=== PATIENT | female | born 1930 | race Caucasian/White ===

== ENCOUNTER 2017-03-26 09:40 | Emergency (ER) | payer OTHER, MEDICARE ==
[~2017-03-26] VITALS: Ht 157.5 cm; Wt 77.1 kg
[~2017-03-26 09:40] MED LIST: ALBUTEROL2.5 MG/3 M INH/SOL; AMPICILLIN500 MG PO; ASPIRIN EC81 M1 PO; BREO ELLIPTA1 POW INH; FISH OIL CONC1000 M1 PO; FLOVENT HFA12 G1 INH; FLUTICASONE PRO16 GM NASB; FUROSEMIDE40 M1 PO; LIPITOR20 M2 PO; LOSARTAN POTAS100 M1 PO; MAGNESIUM OXID400 M1 PO; METOPROLOL SUCC25 M1 PO; MUCINEX1200 M1 PO; NEXIUM 40MG40 MG PO; NEXIUM20 M1 PO; POTASSIUM CHLO10 ME4 PO; ROBITUSSIN W/CO10 ML PO; VITAMIN D31000 UNI2 PO; ZITHROMAX Z-PA250 M1 PO
[2017-03-26 10:10] LABS: ABSOLUTE BASOPHIL COUNT 0 /CUMM (0.0-0.2); ABSOLUTE EOSINOPHIL COUNT 0.1 /CUMM (0.0-0.7); ABSOLUTE GRANULOCYTE CT 5.9 /CUMM (1.4-6.5); ABSOLUTE MONOCYTE COUNT 0.6 /CUMM (0.10-0.60); BASOPHIL % 0.3 % (0.0-2.0); EOSINOPHIL % 0.8 % (0-5); GRANULOCYTE % 69.2 % (42.2-75.2); HEMATOCRIT 37.3 % (37-47); MEAN CORPUSCULAR VOLUME 85.6 FL (81.0-99.0); MEAN PLATELET VOLUME 9.2 FL (7.4-10.4); PLATELET COUNT 232 /CUMM (130-400); RBC DISTRIBUTION WIDTH 13.6 % (11.5-14.5); RED BLOOD CELL CT 4.36 /CUMM (4.20-5.40); WHITE BLOOD CELL COUNT 8.5 /CUMM (4.8-10.8)
--- NOTE | 2017-03-26 10:14 | ED CARDIAC/CP/PALPITATIONS ---
History of Present Illness General Chief Complaint: Chest Pain Stated Complaint: cp Source: patient Exam Limitations: no limitations Vital Signs & Intake/Output Vital Signs & Intake/Output ED Intake and Output 03/27 0000 03/26 1200 Intake Total Output Total Balance Patient 170 lb Weight Allergies Coded Allergies: adhesive tape (RASH ON SKIN THAT IT TOUCHES 01/22/16) iodine (DAVIS SKIN WHERE APPLIED 01/22/16) povidone-iodine (DAVIS SKIN WHERE IT IS APPLIED 01/22/16) shellfish derived (HIVES ALL OVER 01/22/16) propoxyphene (GI UPSET 01/22/16) Reconcile Medications Albuterol Sulfate 2.5 MG/3 ML (0.083 %) VIAL.NEB 1 Vial INH/JULIO TID COPD ( Reported) Aspirin (Ecotrin*) 81 MG TABLET.DR 1 TAB PO DAILY HEART (Reported) Atorvastatin Calcium (Lipitor) 20 MG TABLET 1 TAB PO QPM CHOLESTEROL ( Reported) Azithromycin (Zithromax) 250 MG TABLET 1 DP PO AD bronchitis 2 the first day followed by 1 for days 2-5 Cholecalciferol (Vitamin D3) 1,000 UNIT TABLET 1 TAB PO QPM VITAMIN SUPPORT ( Reported) Cholecalciferol (Vitamin D3) (Vitamin D3) 400 UNIT TABLET 1 TAB PO QPM VITAMIN SUPPORT (Reported) Esomeprazole Magnesium (Nexium) 20 MG CAPSULE.DR 1 CAP PO DAILY GERD ( Reported) Fluticasone Propionate 50 MCG/ACTUATION SPRAY.SUSP 2 SPRAY NASB DAILY ALLERGIES (Reported) Fluticasone Propionate (Flovent Hfa) 110 MCG/ACTUATION AER.W.ADAP 2 PUF INH BID COPD (Reported) Furosemide 40 MG TABLET 1 TAB PO DAILY DIURETIC (Reported) Guaifenesin (Mucinex) 1,200 MG TAB.ER.12H 1 TAB PO BID ALLERGIES (Reported) Losartan Potassium 100 MG TABLET 0.5 TAB PO BID BP (Reported) Magnesium Oxide 400 MG TABLET 1 TAB PO DAILY SUPPLEMENT (Reported) Metoprolol Succinate 25 MG TAB 1 TAB PO DAILY BP (Reported) [place]-3 Fatty Acids (Fish Oil Concentrate) 1,000 MG CAPSULE 1 CAP PO DAILY SUPPLEMENT (Reported) Potassium Chloride 10 MEQ TABLET.ER 1 TAB PO DAILY SUPPLEMENT (Reported) Prednisone (Deltasone) 20 MG TABLET 1 TAB PO BID BRONCHITIS Triage Note: PT PRESENTS TO ER FROM [facility]CTORS OFFICE. PT STATES SHE WAS FOLLOWING UP WITH HER DR (DR SANDRA) [facility] WHEN THE DOCTOR NOTICED HER BREATHING WAS HEAVY. PT STATES SHE HAS FELT SOB WITH EXERTION FOR A FEW DAYS. PT DENIES ANY PAIN BUT STILL SHE DOES FEEL LIKE HER CHEST IS HEAVY. EKG DONE ON PT ARRIVAL. Triage Nurses Notes Reviewed? yes Onset: Abrupt Duration: hour(s):, constant, continues in ED Timing: recent history Quality/Severity: moderate, severe Radiation: no radiation HPI: 86-year-old male comes into emergency room with complaints of chest heaviness and shortness of breath. Patient reports that symptoms began when she woke up this morning and have gotten progressively worse. Patient has a history of previous lung cancer with a partial left and partial right lobectomy. She denies any prior history of [place]. Patient went to the lung [facility] today where she gets routine checkups and which is feeling worse than usual. She denies any fever cough vomiting diaphoresis. (WENDY COVINGTON) Past History Travel History Traveled to [place] past 21 day No Medical History Any Pertinent Medical History? 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 No (WENDY COVINGTON) Review of Systems Review of Systems Constitutional: Reports: no symptoms. EENTM: Reports: no symptoms. Respiratory: Reports: see HPI. Cardiovascular: Reports: see HPI. GI: Reports: no symptoms. Genitourinary: Reports: no symptoms. Musculoskeletal: Reports: no symptoms. Skin: Reports: no symptoms. Neurological/Psychological: Reports: no symptoms. Hematologic/Endocrine: Reports: no symptoms. Immunologic/Allergic: Reports: no symptoms. All Other Systems: Reviewed and Negative (WENDY COVINGTON) Physical Exam Physical Exam General Appearance: well developed/nourished, alert, awake, mild distress Head: atraumatic Eyes: Bilateral: normal appearance. Ears, Nose, Throat: normal ENT inspection, hearing grossly normal Neck: normal inspection Respiratory: normal breath sounds, no respiratory distress Cardiovascular: regular rate/rhythm, murmur Back: normal inspection Extremities: normal inspection, normal range of motion Neurologic/Psych: awake, alert, oriented x 3, normal gait, normal mood/affect Skin: intact, normal color Core Measures ACS in differential dx? Yes Severe Sepsis Present: No Septic Shock Present: No (WENDY COVINGTON) Progress Differential Diagnosis: AMI, aortic dissection, atrial fibrillation, CHF/pulm edema, costochondritis, hyperkalemia, intracranial hemorrhage, musculoskeletal pain, myocarditis, pancreatitis, pericarditis, pneumonia, PSVT, pulmonary embolism, PUD/GERD, PVCs/PACs, rib fracture, sepsis, unstable angina, V-fib/V- Tach, WPW syndrome Plan of Care: Orders Procedure Date/time Status Heart Healthy Diet 03/26 D Active TROPONIN LEVEL 03/26 1405 Complete EKG 03/26 1405 Active Add-on Test (ER Only) 03/26 1301 Active Telemetry/Hyster Machine Operator 03/26 1048 Active Add-on Test (ER Only) 03/26 1005 Active MAGNESIUM 03/26 1002 Complete D-DIMER 03/26 1002 Complete TROPONIN LEVEL 03/26 0949 Complete COMPREHENSIVE METABOLIC PANEL 03/26 0949 Complete CBC WITHOUT DIFFERENTIAL 03/26 0949 Complete EKG 03/26 0941 Active Laboratory Tests 03/26/17 1415: Troponin I < 0.01 03/26/17 1002: Anion Gap 9, Estimated GFR > 60, BUN/Creatinine Ratio 27.5 H, Glucose 99, Calcium 9.0, Magnesium 2.0, Total Bilirubin 0.8, AST 18, ALT 28, Alkaline Phosphatase 70, Troponin I < 0.01, Total Protein 7.2, Albumin 4.4, Globulin 2.8, Albumin/Globulin Ratio 1.6, D-Dimer 228, CBC w Diff NO MAN DIFF REQ, RBC 4.36, MCV 85.6, MCH 29.0, RDW 13.6, MPV 9.2, Gran % 69.2, Lymphocytes % 23.1, Monocytes % 6.6, Eosinophils % 0.8, Basophils % 0.3, Absolute Granulocytes 5.9, Absolute Lymphocytes 2.0, Absolute Monocytes 0.6, Absolute Eosinophils 0.1, Absolute Basophils 0, PUBS MCHC 34.0 Diagnostic Imaging: Viewed by Me: Radiology Read. Discussed w/RAD: Radiology Read. Radiology Impression: SERVICE DATE: 03/26/17 EXAM TYPE: RAD - XRY- PORTABLE CHEST XRAY EXAMINATION: XR PORTABLE CHEST CLINICAL INFORMATION: Shortness of breath COMPARISON: Chest x-ray 02/26/2017 TECHNIQUE: Portable frontal view of the chest was obtained. FINDINGS: Cardiac silhouette is normal in size. Similar prominent right paratracheal stripe is likely vascular in nature. The lungs are adequately aerated. Scarring of the left midlung with basilar atelectasis. Surgical changes of the right lung. No gross pleural effusion. IMPRESSION: Postsurgical changes of the lungs. No focal consolidation. DICTATED BY: LIDYA TUTTLE MD DATE/TIME DICTATED:03/26/171039 SALES STRATEGY MANAGER:GLADYS DATE/TIME TRANSCRIBED:03/26/171039 Initial ED EKG: normal p-waves, normal QRS complex, normal sinus rhythm, nonspecific ST T wave chg, supraventricular bigeminy Repeat EKG: unchanged Comments: 03/26/2017 2:31:[address] Stearns from cardiology. Discussed the EKG changes. These EKG changes do not require admission. Patient will stay for a second EKG and troponin. Follow-up as outpatient. Patient has been reevaluated multiple times and clinically looks well. Walking O2 saturation is 97%. Patient did not feel short of breath. (WENDY COVINGTON) Departure Departure Disposition: HOME OR SELF CARE Condition: Stable Clinical Impression Primary Impression: Dyspnea Secondary Impressions: Bronchitis, Tick bite Referrals: KALLI LANGSTON MD (PCP/Family) Additional Instructions: Take prednisone and azithromycin as prescribed. Follow-up with ear wax pumper. Return if any concerns worsening symptoms. Please go over all results of today's visit with your primary care doctor. Contact your primary care doctor to let them know you were here in the emergency room. There may be nonspecific findings which may not be related to your visit today here in the emergency room but may require further evaluation and chronic monitoring by your primary care doctor. If you had a laceration today the chance of foreign body always remains. You should follow-up with your primary care doctor for recheck in 3-5 days for a wound check. If you had an x-ray done there is a chance that a fracture could have been missed on initial read and you should follow-up with your primary care doctor for repeat x-rays if symptoms persist. If your blood pressure was elevated here in the emergency room please have rechecked by her primary care doctor within the next 48 hours by your primary care doctor. If you were prescribed a narcotic here in the emergency room or any type of controlled substances you're not allowed to drive while taking this medication or operate any type of heavy machinery. Narcotics can make you feel lightheaded dizziness nausea and can cause constipation. You may need to berry picker machine operator a stool softener. Thank you for choosing [facility] emergency room. Please return to the emergency room immediately if you have any other concerns worsening of symptoms. Departure Forms: Customer Survey General Discharge Information Prescriptions: Current Visit Scripts Azithromycin (Zithromax) 1 DP PO AD #6 TAB 2 the first day followed by 1 for days 2-5 Prednisone (Deltasone) 1 TAB PO BID #8 MG Comments 03/26/2017 4:09:25 PM Patient clinically looks well. Patient was seen by Dr. torres. Symptoms likely bronchial related. The patient found a tick on her right arm right prior to discharge. The tick was still moving and was not fully burrowed. She was outside yesterday. Patient treated with 1 time dose of doxycycline 200 mg. Told to follow-up for Lyme titer in 4-6 weeks. Negative d-dimer. Walking O2 saturation high 90s. Patient is asymptomatic at the moment. Clinically looks well. dr torres agrees with plan of care. As stated before spoke with the patient's surgical assistant as well. Patient will follow up as an outpatient. (WENDY COVINGTON) PA/DRUM BARKER OPERATOR Co-Sign Statement Statement: ED Attending supervision documentation- x I saw and evaluated the patient. I have also reviewed all the pertinent lab results and diagnostic results. I agree with the findings and the plan of care as documented in the PA's/DRUM BARKER OPERATOR's documentation. [] I have reviewed the ED Record and agree with the PA's/DRUM BARKER OPERATOR's documentation. [] Additions or exceptions (if any) to the PAs/DRUM BARKER OPERATOR's note and plan are summarized below: [] (SANDRA HALL,ANTONIETA) Critical Care Note Critical Care Note Critical Care Time: non-applicable (ALEKSANDR FLORES,WENDY)
[2017-03-26] MEDS ORDERED: VITAMIN D3400 UNI1 PO (10:25)
--- NOTE | 2017-03-26 10:47 | RADIOLOGY REPORT ---
EXAMINATION: XR PORTABLE CHEST CLINICAL INFORMATION: Shortness of breath COMPARISON: Chest x-ray 02/26/2017 TECHNIQUE: Portable frontal view of the chest was obtained. FINDINGS: Cardiac silhouette is normal in size. Similar prominent right paratracheal stripe is likely vascular in nature. The lungs are adequately aerated. Scarring of the left midlung with basilar atelectasis. Surgical changes of the right lung. No gross pleural effusion. IMPRESSION: Postsurgical changes of the lungs. No focal consolidation.
[2017-03-26 14:28] VITALS: BP 155/70
[2017-03-26] MEDS ORDERED: ZITHROMAX250 M2 PO (14:44)
[2017-03-26] MEDS ORDERED: DELTASONE20 MG PO (14:44)
== END 2017-03-26 15:22 ==
LOC: ERH 09:40
PROVIDERS: Physician Assistant Medical
DX: S40.861A Insect bite (nonvenomous) of right upper arm, initial encounter (principal); J40 Bronchitis, not specified as acute or chronic; R07.89 Other chest pain
CPT/HCPCS: 1263; 93005; 93010

== ENCOUNTER 2017-04-14 15:48 | Emergency (ER) | payer OTHER, MEDICARE ==
[~2017-04-14] VITALS: Ht 157.5 cm; Wt 77.1 kg
[~2017-04-14 15:48] MED LIST changes: +DELTASONE20 MG PO; +VITAMIN D3400 UNI1 PO; +ZITHROMAX250 M2 PO
--- NOTE | 2017-04-14 16:46 | RADIOLOGY REPORT ---
EXAMINATION: XR CHEST CLINICAL INFORMATION: Chest congestion and productive cough. COMPARISON: 03/26/2017 TECHNIQUE: 2 views of the chest were obtained. FINDINGS: Surgical clips around the right hilum and in the left infrahilar region from prior right and left lower lobectomy. Linear opacity of chronic scarring extends lateral to the left hilum into the left lower lobe. No acute pulmonary consolidation or pulmonary edema. There is chronic, mild pleural thickening of the inferolateral left hemithorax. Cardiac silhouette is mildly enlarged and the mitral valve annulus is calcified. Thoracic aorta is calcified. No acute findings within the degenerated thoracic spine. IMPRESSION: No acute cardiopulmonary abnormality compared to 03/26/2017.
--- NOTE | 2017-04-14 18:06 | ED DYSPNEA/ASTHMA COMPLAINT ---
History of Present Illness General Chief Complaint: General Adult Stated Complaint: SEN BY DR. ROY FOR CHEST CONGESTION AND COUGH Source: patient Exam Limitations: no limitations Vital Signs & Intake/Output Vital Signs & Intake/Output Vital Signs Date Time Temp Pulse Resp B/P B/P Pulse O2 O2 Flow FiO2 Mean Ox Delivery Rate 04/14 1906 97.7 70 18 138/85 95 Room Air 04/14 1828 98 04/14 1556 97.7 73 20 174/80 98 Allergies Coded Allergies: adhesive tape (RASH ON SKIN THAT IT TOUCHES 01/22/16) iodine (DAVIS SKIN WHERE APPLIED 01/22/16) povidone-iodine (DAVIS SKIN WHERE IT IS APPLIED 01/22/16) shellfish derived (HIVES ALL OVER 01/22/16) propoxyphene (GI UPSET 01/22/16) Reconcile Medications Albuterol Sulfate 2.5 MG/3 ML (0.083 %) VIAL.NEB 1 Vial INH/JULIO TID COPD ( Reported) Albuterol Sulfate (Ventolin Hfa) 90 MCG HFA.AER.AD 2 PUF INH Q4-6 PRN PRN SHORTNESS OF BREATH Aspirin (Ecotrin*) 81 MG TABLET.DR 1 TAB PO DAILY HEART (Reported) Atorvastatin Calcium (Lipitor) 20 MG TABLET 1 TAB PO QPM CHOLESTEROL ( Reported) Budesonide/Formoterol Fumarate (Symbicort 160-4.5 Mcg Inhaler) 160 MCG-4.5 MCG/ ACTUATION HFA.AER.AD 2 PUF INH BID ASTHMA/COPD (Reported) Cholecalciferol (Vitamin D3) 1,000 UNIT TABLET 1 TAB PO QPM VITAMIN SUPPORT ( Reported) Cholecalciferol (Vitamin D3) (Vitamin D3) 400 UNIT TABLET 1 TAB PO QPM VITAMIN SUPPORT (Reported) Esomeprazole Magnesium (Nexium) 20 MG CAPSULE.DR 1 CAP PO DAILY GERD ( Reported) Fluticasone Propionate 50 MCG/ACTUATION SPRAY.SUSP 2 SPRAY NASB DAILY ALLERGIES (Reported) Fluticasone Propionate (Flovent Hfa) 110 MCG/ACTUATION AER.W.ADAP 2 PUF INH BID COPD (Reported) Furosemide 40 MG TABLET 1 TAB PO DAILY DIURETIC (Reported) Guaifenesin (Mucinex) 1,200 MG TAB.ER.12H 1 TAB PO BID ALLERGIES (Reported) Losartan Potassium 100 MG TABLET 0.5 TAB PO BID BP (Reported) Magnesium Oxide 400 MG TABLET 1 TAB PO DAILY SUPPLEMENT (Reported) Metoprolol Succinate 25 MG TAB 1 TAB PO DAILY BP (Reported) [place]-3 Fatty Acids (Fish Oil Concentrate) 1,000 MG CAPSULE 1 CAP PO DAILY SUPPLEMENT (Reported) Potassium Chloride 10 MEQ TABLET.ER 1 TAB PO DAILY SUPPLEMENT (Reported) Prednisone (Unknown Strength) TABLET (Unknown Dose) PO AD STEROID TAPER ( Reported) Prednisone 10 MG TABLET 1 TAB PO AD COPD DAY1/DAY2- FOUR TABS DAY2/DAY3- THREE TABS DAY4/DAY5- TWO TABS DAY6- ONE TAB Triage Note: PRESNTS TO ED FOR EVALUATION SECONDARY TO CHEST CONGESTION X 4 DAYS. SHE WAS TREATED WITH STEROIDS HOWEVER NOT IMPROVING. Triage Nurses Notes Reviewed? yes Onset: Gradual Duration: constant Timing: recent history Severity: moderate Prior Episodes/Possible Cause: frequent episodes HPI: Patient is a 86-year-old female with past medical history of lung cancer where patient received bilateral lobectomy approximately 10 years ago and in 2014 patient had recurrence of cancer where she received radiation therapy. Patient' s chief estimator Deshawn Horner MD who evaluated patient last Friday for concerns of cough wheezing and shortness breath where she was given a steroid prescription patient had mild relief however and the past 25 hours her symptoms of shortness of breath and dyspnea on exertion and wheezing have worsened. Patient denies any fever chills chest pain arm pain jaw pain nausea vomiting leg swelling hemoptysis palpitations diaphoresis abdominal pain. She has tried nebulizer treatments at home with minimal relief of symptoms. (AYAD IRVING) Past History Travel History Traveled to [place] past 21 day No Medical History Any Pertinent Medical History? 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 No (AYAD IRVING) Review of Systems Review of Systems Constitutional: Reports: see HPI. EENTM: Reports: no symptoms. Respiratory: Reports: see HPI, short of breath. Cardiovascular: Reports: no symptoms. GI: Reports: no symptoms. Genitourinary: Reports: no symptoms. Musculoskeletal: Reports: no symptoms. Skin: Reports: no symptoms. Neurological/Psychological: Reports: no symptoms. Hematologic/Endocrine: Reports: no symptoms. Immunologic/Allergic: Reports: no symptoms. All Other Systems: Reviewed and Negative (AYAD IRVING) Physical Exam Physical Exam General Appearance: no apparent distress, alert, comfortable Respiratory: normal breath sounds, chest non-tender, wheezing Comments: Well-developed well-nourished person in no acute distress HEENT: Normal EENT exam, Neck: Supple, no lymphadenopathy, normal range of motion without pain or tenderness Back: Nontender, no CVA tenderness. Cardiovascular: Regular rate and rhythms no murmurs rubs or gallops, normal JVP Abdomen: Soft, nontender nondistended, no appreciable organomegaly. Normal bowel sounds. No ascites Extremity: No edema, no calf tenderness to palpation, normal and equal pulses. Neuro: Alert oriented x3, motor sensory normal, Skin: No appreciable rash on exposed skin, skin is warm and dry. Psych: Mood and affect is normal, memory and judgment is normal. Core Measures ACS in differential dx? No Severe Sepsis Present: No Septic Shock Present: No (AYAD IRVING) Progress Differential Diagnosis: asthma, AMI, bronchitis, costochondritis, CHF, COPD, musculoskeletal pain, pericarditis, pulmonary embolism, pneumonia, pneumothorax, rib fracture, unstable angina Plan of Care: Orders Procedure Date/time Status EKG 04/14 1558 Active Patient on initial examination looks well no apparent distress nontoxic- appearing afebrile and denies any symptoms of infectious process. Patient does have bilateral wheezing on exam. Oxygen saturation 96% room air. Patient is in no respiratory distress. My suspicion of pulmonary embolism is extremely low. Patient does not have any chest pain. 04/14/174- after reexamination of the patient after nebulizer treatment and steroids patient had complete resolution of wheezing. Patient was ABMULATED DOWN THE ELY noted to be no respiratory distress oxygen saturation 96% room air. Discussed disposition plan with Dr. GREGG and who agreed with disposition plan. (AYAD IRVING) Diagnostic Imaging: Viewed by Me: Radiology Read. Radiology Impression: no acute abnormality, no fracture Initial ED EK BPM Comments: PATIENT: THOMAS HDZ PRESENT AGE: 86 PATIENT ACCOUNT NO: [id number] : 30 LOCATION: [facility] ORDERING PHYSICIAN: PAWAN GILBERT DO (TBS) SERVICE DATE: 04/14/17 EXAM TYPE: RAD - XRY-CHEST XRAY, PA AND LATERAL EXAMINATION: XR CHEST CLINICAL INFORMATION: Chest congestion and productive cough. COMPARISON: 03/26/2017 TECHNIQUE: 2 views of the chest were obtained. FINDINGS: Surgical clips around the right hilum and in the left infrahilar region from prior right and left lower lobectomy. Linear opacity of chronic scarring extends lateral to the left hilum into the left lower lobe. No acute pulmonary consolidation or pulmonary edema. There is chronic, mild pleural thickening of the inferolateral left hemithorax. Cardiac silhouette is mildly enlarged and the mitral valve annulus is calcified. Thoracic aorta is calcified. No acute findings within the degenerated thoracic spine. IMPRESSION: No acute cardiopulmonary abnormality compared to 03/26/2017. DICTATED BY: AMELIA LIVE MD DATE/TIME DICTATED:04/14/171635 INDUSTRIAL PLANT CUSTODIAN:GLADYS (AYAD IRVING) Departure Departure Disposition: HOME OR SELF CARE Condition: Stable Clinical Impression Primary Impression: COPD (chronic obstructive pulmonary disease) Referrals: KALLI LANGSTON MD (PCP/Family) Additional Instructions: As discussed tomorrow please follow-up with your established chief estimator Dr. Horner. If symptoms worsen return to emergency room. Continue home medications as directed. Begin the prescription of prednisone as directed for the full course and begin the prescription of Ventolin for rescue inhaler relief. Prescriptions waiting a [facility] pharmacy. Begin [id number] allergy medications of his Claritin and/or Thelma for relief of symptoms Departure Forms: Customer Survey General Discharge Information Prescriptions: Current Visit Scripts Prednisone 1 TAB PO AD #19 TAB DAY1/DAY2- FOUR TABS DAY2/DAY3- THREE TABS DAY4/DAY5- TWO TABS DAY6- ONE TAB Albuterol Sulfate (Ventolin Hfa) 2 PUF INH Q4-6 PRN PRN SHORTNESS OF BREATH #1 INHAL (AYAD IRVING) PA/INFECTION PREVENTIONIST Co-Sign Statement Statement: ED Attending supervision documentation- [] I saw and evaluated the patient. I have also reviewed all the pertinent lab results and diagnostic results. I agree with the findings and the plan of care as documented in the PA's/INFECTION PREVENTIONIST's documentation. [X] I have reviewed the ED Record and agree with the PA's/INFECTION PREVENTIONIST's documentation. [] Additions or exceptions (if any) to the PAs/INFECTION PREVENTIONIST's note and plan are summarized below: [] (CRISTINO HALL,FELICE) Critical Care Note Critical Care Note Critical Care Time: non-applicable (AYAD IRVING)
[2017-04-14] MEDS ORDERED: SYMBICORT 16010.2 GM INH (19:01)
[2017-04-14] MEDS ORDERED: PREDNISONE10 M2 PO ×2 (19:01→19:21)
[2017-04-14 19:06] VITALS: BP 138/85
[2017-04-14] MEDS ORDERED: VENTOLIN HFA18 GM INH (19:21)
== END 2017-04-14 19:28 ==
LOC: ERH 15:48
DX: J44.9 Chronic obstructive pulmonary disease, unspecified (principal); R06.02 Shortness of breath
CPT/HCPCS: 1263; 93005; 93010; 96374; J2930

== ENCOUNTER 2017-12-18 15:40 | Inpatient (IN) | payer OTHER, MEDICARE ==
[~2017-12-18] VITALS: Ht 157.5 cm; Wt 74.8 kg
[~2017-12-18 15:40] MED LIST changes: +ALBUTEROL0.63 MG/1 INH; +CARDIZEM30 M1 PO; +COLACE100 M1 PO; +DILTIAZEM 24HR120 M1 PO; -FISH OIL CONC1000 M1 PO; +HYDROCODON-ACE1 EAC2 PO; +LEVAQUIN750 M1 PO; +LOVAZA1 G1 PO; -POTASSIUM CHLO10 ME4 PO; +POTASSIUM CHLO20 ME2 PO; +PREDNISONE10 M2 PO; +SYMBICORT 16010.2 GM INH; +VENTOLIN HFA18 GM INH; +XARELTO15 M1 PO; +XARELTO20 M2 PO
--- NOTE | 2017-12-18 18:21 | ED UPPER/LOWER EXTREMITY COMPL ---
See Addendum History of Present Illness General Chief Complaint: General Adult Stated Complaint: PT WAS SENT BY DR SANTANA FOR BIG HEMATOMA Source: patient, family, old records Exam Limitations: no limitations Vital Signs & Intake/Output Vital Signs & Intake/Output Vital Signs Date Time Temp Pulse Resp B/P B/P Pulse O2 O2 Flow FiO2 Mean Ox Delivery Rate 12/189 98.4 71 18 122/57 98 Room Air 12/18 2035 97.2 67 18 135/64 100 Room Air 12/18 2026 93 Room Air 12/18 1556 97.2 118 24 123/62 93 Room Air Room Air Allergies Coded Allergies: adhesive tape (RASH ON SKIN THAT IT TOUCHES 10/22/17) iodine (DAVIS SKIN WHERE APPLIED 10/22/17) povidone-iodine (DAVIS SKIN WHERE IT IS APPLIED 10/22/17) shellfish derived (HIVES ALL OVER 10/22/17) propoxyphene (GI UPSET 10/22/17) Triage Note: PT RETURNS TO ED WITH C/O LEFT LOWER LEG BRUISING AND PAIN, SEEN ON FRIDAY, HAD XRAY. FOLLOWED UP WITH DR LOPEZ, "WANTED ME TO FOLLOW UP WITH DR SANTANA AND/OR DR MARIE". HX XERALTO, FOR A-FIB Triage Nurses Notes Reviewed? yes Onset: Gradual Duration: day(s): Timing: recent history Severity: severe Pain/Injury Location: Left: Leg. Method of Injury: direct blow HPI: 87yo female with hx of a fib on xarelto presents to ED complaining of hematoma to left lower leg with worsening pain and redness. Patient was seen and evaluated here 4 days ago with normal xrays. She was placed in [place] wrap and given Vicodin for her pain. Since then the patient has seen her primary care doctor, Dr. Lopez, she was started on Augmentin 2 days ago for surrounding cellulitis. Patient has also spoken with Dr. Santana over the phone. He is recommended that she return to the ER for possible general surgery consult and drainage of hematoma. Patient reports pain is still severe, not well controlled with Vicodin. Patient states that she is having increasing difficulty with ambulation due to her pain. Patient denies fevers, chills, abdominal pain, nausea, vomiting, numbness, tingling. (Ifrah FLORES,Raissa Campbell) Reconcile Medications Albuterol Sulfate 2.5 MG/3 ML (0.083 %) VIAL.NEB 1 Vial INH/JULIO TID COPD ( Reported) Albuterol Sulfate (Ventolin Hfa) 90 MCG HFA.AER.AD 2 PUF INH Q4-6 PRN PRN SHORTNESS OF BREATH Aspirin (Ecotrin*) 81 MG TABLET.DR 1 TAB PO DAILY HEART (Reported) Atorvastatin Calcium (Lipitor) 20 MG TABLET 1 TAB PO QPM CHOLESTEROL ( Reported) Budesonide/Formoterol Fumarate (Symbicort 160-4.5 Mcg Inhaler) 160 MCG-4.5 MCG/ ACTUATION HFA.AER.AD 2 PUF INH BID COPD (Reported) Cholecalciferol (Vitamin D3) 1,000 UNIT TABLET 1 TAB PO QPM VITAMIN SUPPORT ( Reported) Cholecalciferol (Vitamin D3) (Vitamin D3) 1,000 UNIT CAPSULE 1 CAP PO DAILY HEALTH SUPPLEMENT (Reported) Diltiazem HCl (Diltiazem 24HR Cd) 120 MG CAP.ER.24H 1 CAP PO DAILY HEART/BP ( Reported) Esomeprazole Magnesium (Nexium) 20 MG CAPSULE.DR 1 CAP PO DAILY ACID REFLUX ( Reported) Esomeprazole Magnesium (Nexium) 20 MG CAPSULE.DR 1 CAP PO DAILY ACID REFLUX ( Reported) Fluticasone Propionate 50 MCG/ACTUATION SPRAY.SUSP 2 SPRAY NASB DAILY ALLERGIES (Reported) Furosemide 40 MG TABLET 1 TAB PO BID DIURETIC (Reported) Guaifenesin (Mucinex) 1,200 MG TAB.ER.12H 1 TAB PO BID ALLERGIES (Reported) Hydrocodone/Acetaminophen (Hydrocodon-Acetaminophen 5-325) 5 MG-325 MG TABLET 1 TAB PO BID PRN pain Losartan Potassium 100 MG TABLET 0.5 TAB PO BID BP (Reported) Magnesium Oxide 400 MG TABLET 1 TAB PO DAILY SUPPLEMENT (Reported) Metoprolol Succinate 25 MG TAB 1 TAB PO DAILY BP (Reported) [place]-3 Acid Ethyl Esters (Lovaza) 1 GRAM CAPSULE 1 CAP PO BID CHOLESTEROL/ TRIGLYCERIDES (Reported) Potassium Chloride 20 MEQ TAB.ER.PRT 1 TAB PO DAILY SUPPLEMENT (Reported) Rivaroxaban (Xarelto) 20 MG TABLET 1 TAB PO QPM A FIB (Reported) with food (Osei Angela MD) Past History Travel History Traveled to [place] past 21 day No Medical History Any Pertinent Medical History? 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 No (Raissa Bruno) Review of Systems Review of Systems Constitutional: Reports: no symptoms. EENTM: Reports: no symptoms. Respiratory: Reports: no symptoms. Cardiovascular: Reports: no symptoms. Gastrointestinal/Abdominal: Reports: no symptoms. Genitourinary: Reports: no symptoms. Musculoskeletal: Reports: see HPI. Skin: Reports: see HPI. Neurological/Psychological: Reports: no symptoms. Hematologic/Endocrine: Reports: no symptoms. Immunological: Reports: no symptoms. All Other Systems: Reviewed and Negative (Raissa Bruno) Physical Exam Physical Exam General Appearance: well developed/nourished, no apparent distress, alert, awake Head: atraumatic, normal appearance Eyes: Bilateral: normal appearance. Ears, Nose, Throat: hearing grossly normal Neck: normal inspection, supple, full range of motion Cardiovascular/Respiratory: no respiratory distress Peripheral Pulses: 1+ dorsalis pedis (R), 1+ dorsalis pedis (L) Back: normal inspection, normal range of motion Leg Left: 6X6CM HEMATOMA TO LEFT DISTAL ANTERIOR ANDERS WITH TENDERNESS AND SURROUNDING ERYTHEMA, WARMTH, AND MILD TENDERNESS Leg Right: normal range of motion, normal inspection Hip Left: normal range of motion, normal inspection Hip Right: normal range of motion, normal inspection Knee Left: normal range of motion, normal inspection Knee Right: normal range of motion, normal inspection Foot Left: normal inspection, normal range of motion, NONTENDER, ECCYMOSIS TO MEDIAL MALLEOLUS WITHOUT BONY TENDERNESS Foot Right: normal inspection, normal range of motion Neurologic/Tendon: normal sensation, normal motor functions, normal tendon functions Skin: SEE ABOVE (Ifrah FLORES,Raissa Campbell) Progress Differential Diagnosis: arterial insufficiency, cellulitis, contusion, fracture, sprain, tendon injury, HEMATOMA Plan of Care: Orders Procedure Date/time Status Regular Diet 12/19 B Active Patient Data 12/18 2307 Active OXYGEN SETUP (GEN) 12/18 2241 Active Saline Lock 12/18 2241 Active Admit to inpatient 12/18 2241 Active Vital Signs 12/18 2241 Active Activity/Ambulation 12/18 2241 Active Code Status 12/18 2241 Active LACTIC ACID 12/18 2151 Active Add-on Test (ER Only) 12/18 2121 Active PARTIAL THROMBOPLASTIN TIME 12/18 1950 Complete PROTHROMBIN TIME 12/18 1950 Complete LACTIC ACID 12/18 185 Complete COMPREHENSIVE METABOLIC PANEL 12/18 185 Complete CBC WITHOUT DIFFERENTIAL 12/18 185 Complete Current Medications Sig/Heena Start time Last Medication Dose Stop Time Status Admin Ampicillin Sodium/ 3,000 MG ONCE ONE 12/18 2315 AC Sulbactam Sodium 12/18 2344 (Unasyn) Sodium Chloride 100 ML (Normal Saline 0.9%) Laboratory Tests 12/18/17 1950: PT 28.7 H, INR 2.76 H, APTT 39 H, CBC w Diff NO MAN DIFF REQ, RBC 3.51 L, MCV 75.4 L, MCH 24.6 L, MCHC 32.7 L, RDW 15.8 H, MPV 8.7, Gran % 70.6, Lymphocytes % 15.1 L, Monocytes % 13.3 H, Eosinophils % 0.5, Basophils % 0.5, Absolute Granulocytes 5.0, Absolute Lymphocytes 1.1 L, Absolute Monocytes 1.0 H, Absolute Eosinophils 0, Absolute Basophils 0 12/18/17 185: Anion Gap 12, Estimated GFR > 60, BUN/Creatinine Ratio 17.5, Glucose 97, Lactic Acid 1.3, Calcium 9.1, Total Bilirubin 0.5, AST 19, ALT 29, Alkaline Phosphatase 62, Total Protein 6.3, Albumin 4.0, Globulin 2.3, Albumin/Globulin Ratio 1.7 Patient's hematoma and lower leg erythema appear to be worsening compared to when I saw this patient 4 days ago. Will obtain basic labs and ultrasound to assess for infection, abscess. The patient was signed out to Dr. Angela pending blood work and ultrasound. Hand-Off Endorsed To: Osei Angela MD Endorsed Time: 2002 Pending: labs, ultrasound (Raissa Bruno) Diagnostic Imaging: Viewed by Me: Ultrasound. Discussed w/RAD: Ultrasound. Radiology Impression: Hematoma, complex seroma or complex cyst at the area of clinical concern. Comments: D/W Dr. Jewell (Osei Angela MD) Departure Departure Disposition: STILL A PATIENT Condition: Stable Referrals: Antonio Lopez MD (PCP/Family) Departure Forms: Customer Survey General Discharge Information (Raissa Bruno) Departure Clinical Impression Primary Impression: Hematoma Secondary Impressions: Anemia Cellulitis Qualifiers: Site of cellulitis: extremity Site of cellulitis of extremity: lower extremity Laterality: left Qualified Code: L03.116 - Cellulitis of left lower limb Coagulopathy Admission Note Spoke With: Antonio Lopez MD Documentation of Exam: Documentation of any treatments & extenuating circumstances including Concerns Regarding Discharge (functional status, medication knowledge or non-compliance, living conditions, etc.) that warrant an admission rather than observation: Surgical evaluation and IV antibiotics IV analgesia physical therapy serial lab exam medication adjustment continuing care discharge planning (Osei Angela MD)
[2017-12-18 20:15] LABS: ABSOLUTE BASOPHIL COUNT 0 /CUMM (0.0-0.2); ABSOLUTE EOSINOPHIL COUNT 0 /CUMM (0.0-0.7); ABSOLUTE LYMPH COUNT 1.1 /CUMM (1.2-3.4); BASOPHIL % 0.5 % (0.0-2.0); EOSINOPHIL % 0.5 % (0-5); GRANULOCYTE % 70.6 % (42.2-75.2); HEMATOCRIT 26.4 % (37-47); MEAN CORPUSCULAR HGB 24.6 PG (27.0-31.0); MEAN CORPUSCULAR HGB CONC 32.7 G/DL (33.0-37.0); MEAN CORPUSCULAR VOLUME 75.4 FL (81.0-99.0); MEAN PLATELET VOLUME 8.7 FL (7.4-10.4); PLATELET COUNT 241 /CUMM (130-400); RBC DISTRIBUTION WIDTH 15.8 % (11.5-14.5); RED BLOOD CELL CT 3.51 /CUMM (4.20-5.40); WHITE BLOOD CELL COUNT 7.1 /CUMM (4.8-10.8)
--- NOTE | 2017-12-18 21:18 | ULTRASOUND REPORT ---
EXAMINATION: US SUPERFICIAL IMAGING, EXTREMITY CLINICAL INFORMATION: Pain following injury. Cellulitis. COMPARISON: 12/14/2017. TECHNIQUE: Imaging was performed with a high-frequency linear transducer. FINDINGS: At the area of clinical concern, there is an approximate 4.3 x 3.8 x 5.7 cm subcutaneous heterogeneous soft tissue focus. This could correspond to a hematoma or complicated cyst. No vascularity is demonstrable. IMPRESSION: Hematoma, complex seroma or complex cyst at the area of clinical concern.
[2017-12-18 22:24] LABS: PT 28.7 SEC (9.4-12.5); PTT 39 SEC (25-37)
[2017-12-18] MEDS ORDERED: VITAMIN D31000 UNI1 PO (22:31)
[2017-12-18] MEDS ORDERED: NEXIUM20 M1 PO (22:33)
--- NOTE | 2017-12-18 23:09 | Cons- General Surgery ---
General Information and HPI Consulting Request Date of Consult: 12/19/17 Requested By: Sulema Lopez M.D. History of Present Illness: 87-year-old woman presents to the medical service with increasing size of a hematoma left lower extremity. There is concern about superimposed infection. She is on Xarelto and hit her leg at home. There was acute swelling which has been stable over the past few days. She complains of increasing size of a blister over the wound and pain. No fevers chills or sweats Allergies/Medications Allergies: Coded Allergies: adhesive tape (RASH ON SKIN THAT IT TOUCHES 10/22/17) iodine (DAVIS SKIN WHERE APPLIED 10/22/17) povidone-iodine (DAVIS SKIN WHERE IT IS APPLIED 10/22/17) shellfish derived (HIVES ALL OVER 10/22/17) propoxyphene (GI UPSET 10/22/17) Home Med List: Albuterol Sulfate 2.5 MG/3 ML (0.083 %) VIAL.NEB 1 Vial INH/JULIO TID COPD ( Reported) Albuterol Sulfate (Ventolin Hfa) 90 MCG HFA.AER.AD 2 PUF INH Q4-6 PRN PRN SHORTNESS OF BREATH Aspirin (Ecotrin*) 81 MG TABLET.DR 1 TAB PO DAILY HEART (Reported) Atorvastatin Calcium (Lipitor) 20 MG TABLET 1 TAB PO QPM CHOLESTEROL ( Reported) Budesonide/Formoterol Fumarate (Symbicort 160-4.5 Mcg Inhaler) 160 MCG-4.5 MCG/ ACTUATION HFA.AER.AD 2 PUF INH BID COPD (Reported) Cholecalciferol (Vitamin D3) (Vitamin D3) 1,000 UNIT CAPSULE 1 CAP PO DAILY HEALTH SUPPLEMENT (Reported) Diltiazem HCl (Diltiazem 24HR Cd) 120 MG CAP.ER.24H 1 CAP PO DAILY HEART/BP ( Reported) Esomeprazole Magnesium (Nexium) 20 MG CAPSULE.DR 1 CAP PO DAILY ACID REFLUX ( Reported) Fluticasone Propionate 50 MCG/ACTUATION SPRAY.SUSP 2 SPRAY NASB DAILY ALLERGIES (Reported) Furosemide 40 MG TABLET 1 TAB PO BID DIURETIC (Reported) Guaifenesin (Mucinex) 1,200 MG TAB.ER.12H 1 TAB PO BID ALLERGIES (Reported) Hydrocodone/Acetaminophen (Hydrocodon-Acetaminophen 5-325) 5 MG-325 MG TABLET 1 TAB PO BID PRN pain Losartan Potassium 100 MG TABLET 0.5 TAB PO BID BP (Reported) Magnesium Oxide 400 MG TABLET 1 TAB PO DAILY SUPPLEMENT (Reported) Metoprolol Succinate 25 MG TAB 1 TAB PO DAILY BP (Reported) [place]-3 Acid Ethyl Esters (Lovaza) 1 GRAM CAPSULE 1 CAP PO BID CHOLESTEROL/ TRIGLYCERIDES (Reported) Potassium Chloride 20 MEQ TAB.ER.PRT 1 TAB PO DAILY SUPPLEMENT (Reported) Rivaroxaban (Xarelto) 20 MG TABLET 1 TAB PO QPM A FIB (Reported) with food Past History Medical History Neurological: NONE EENT: NONE Cardiovascular: AFIB, CHF, hypertension, hyperlipidemia Respiratory: COPD, pneumonia, radiation pneumonitis non-small cell lung cancer s /p lobectomy 2007 2007, s/p radiation 2013, c/b radiation pneumonitis Gastrointestinal: carcinoid syndrome, s/p resection Hepatic: NONE Renal: NONE Musculoskeletal: osteoarthritis Psychiatric: NONE Endocrine: NONE Blood Disorders: NONE 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 spouse Services at Home: None Primary Language: Romanian ETOH Use: denies use Illicit Drug Use: denies illicit drug use Living Will? yes Functional Ability ADLs Independent: dressing, eating, toileting, bathing. Ambulation: independent Review of Systems Review of Systems: No fevers chills or sweats. No chest pain no dyspnea on exertion leg pain per HPI Exam & Diagnostic Data Vital Signs and I&O Vital Signs Date Time Temp Pulse Resp B/P B/P Pulse O2 O2 Flow FiO2 Mean Ox Delivery Rate 12/18 2248 98.4 71 18 122/57 98 Room Air 12/18 2035 97.2 67 18 135/64 100 Room Air 12/18 2026 93 Room Air 12/18 1556 97.2 118 24 123/62 93 Room Air Room Air Intake & Output 12/18 1600 12/18 0800 12/18 0000 12/17 1600 12/17 0812/17 0000 Intake Total Output Total Balance Patient 165 lb Weight Weight Reported by Patient Measurement Method Physical Exam: Gen.: She looks well her stated age obese no distress HEENT: Anicteric PERRL EOMI Leg: Left lower extremity with large bulla anterior. There is surrounding ecchymosis. There is tenderness without heat. Last 24 Hours of Labs: Laboratory Tests 12/18 12/18 1950 1852 Chemistry Sodium (137 - 145 mmol/L) 138 Potassium (3.5 - 5.1 mmol/L) 4.0 Chloride (98 - 107 mmol/L) 100 Carbon Dioxide (22 - 30 mmol/L) 26 Anion Gap (5 - 16) 12 BUN (7 - 17 mg/dL) 14 Creatinine (0.5 - 1.0 mg/dL) 0.8 Estimated GFR (>60 ml/min) > 60 BUN/Creatinine Ratio (7 - 25 %) 17.5 Glucose (65 - 99 mg/dL) 97 Lactic Acid (0.7 - 2.1 mmol/L) 1.3 Calcium (8.4 - 10.2 mg/dL) 9.1 Total Bilirubin (0.2 - 1.3 mg/dL) 0.5 AST (14 - 36 U/L) 19 ALT (9 - 52 U/L) 29 Alkaline Phosphatase (<127 U/L) 62 Total Protein (6.3 - 8.2 g/dL) 6.3 Albumin (3.5 - 5.0 g/dL) 4.0 Globulin (1.9 - 4.2 gm/dL) 2.3 Albumin/Globulin Ratio (1.1 - 2.2 %) 1.7 Coagulation PT (9.4 - 12.5 SEC) 28.7 H INR (0.90 - 1.19) 2.76 H APTT (25 - 37 SEC) 39 H Hematology CBC w Diff NO MAN DIFF REQ WBC (4.8 - 10.8 /CUMM) 7.1 RBC (4.20 - 5.40 /CUMM) 3.51 L Hgb (12.0 - 16.0 G/DL) 8.6 L Hct (37 - 47 %) 26.4 L MCV (81.0 - 99.0 FL) 75.4 L MCH (27.0 - 31.0 PG) 24.6 L MCHC (33.0 - 37.0 G/DL) 32.7 L RDW (11.5 - 14.5 %) 15.8 H Plt Count (130 - 400 /CUMM) 241 MPV (7.4 - 10.4 FL) 8.7 Gran % (42.2 - 75.2 %) 70.6 Lymphocytes % (20.5 - 51.1 %) 15.1 L Monocytes % (1.7 - 9.3 %) 13.3 H Eosinophils % (0 - 5 %) 0.5 Basophils % (0.0 - 2.0 %) 0.5 Absolute Granulocytes (1.4 - 6.5 /CUMM) 5.0 Absolute Lymphocytes (1.2 - 3.4 /CUMM) 1.1 L Absolute Monocytes (0.10 - 0.60 /CUMM) 1.0 H Absolute Eosinophils (0.0 - 0.7 /CUMM) 0 Absolute Basophils (0.0 - 0.2 /CUMM) 0 Assessment/Plan Assessment/Plan Impression is that of a 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 Excisional debridement of the superficial skin was carried forth. The bulla was completely evacuated. Beneath that there was a large necrotic portion of dermis with tense hematoma underneath. A cruciate incision was made over it and attempt at evacuation of the hematoma attempted. I could not complete the operation due to severe pain experienced by the patient. The clot is densely adherent and may require operative removal. However given the wide exposure obtained, would recommend dressing changes over the weekend to see if it evacuated's spontaneously. Operative intervention will be taken Friday if local cares fail. In the interim she can eat. If anticoagulation is required, would recommend using Lovenox rather than Xarelto as it can be stopped 12 hours prior to surgery. Consult Acknowledgment - Thank you for your consult request.
--- NOTE | 2017-12-19 00:02 | History & Physical ---
See Addendum Oracio HALL,Abigail 12/19/17 0001: General Information and HPI MD Statement: I have seen and personally examined THOMAS HDZ and documented this H&P. The patient is a 87 year old F who presented with a patient stated chief complaint of [L leg redness and swelling and bump]. Source of Information: patient Exam Limitations: no limitations History of Present Illness: The patient is 86-year-old female with past medical history of chronic asthma/ COPD, 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), enlarging lingular nodule or status post radiation therapy in 2013 complicated by radiation pneumonitis, multinodular thyroid gland, hiatal hernia, GERD, HTN/mild LVH,/diastolic dysfunction, multiple valvular abnormalities and atrial fibrillation on Xarelto. She presented to [facility] ED on 12/18 with complaint of increasing left leg bump along with redness and pain. The patient came to [facility] ED on December 14 with complain of pain in left lower leg after hitting it with garbage can. The patient had noticeable swelling around that area and had what appeared to be a small hematoma. X-ray did not show any acute bony pathology but showed a 3.5 x 5.4 cm soft tissue density along the medial aspect of distal leg (can correlate with the soft tissue hematoma). Her leg was wrapped with Manan wrap for compression. She was instructed to apply ice and elevated the leg and was discharged with pain medications. She saw her PCP on May 16 bump had increases in size and there was surrounding redness along with tenderness; she was prescribed Augmentin. Today patient called Dr. Stearns her email engineer and PCP with progressive increase in the size of the bump and worsening pain, redness and swelling of left lower extremity. She was advised to come to ED for further evaluation. She reports that her bump is becoming bigger, bassett, darker and tense. She denies any fever or chills. Patient is independent at baseline reports using walker because of limitation of range of motion secondary to pain. Of note patient is on Xarelto for atrial fibrillation Denies chest pain shortness of breath nausea vomiting or urinary symptoms. Patient is requesting ID consult. Dr. Jewell surgery has also been notified in the ED. Allergies/Medications Allergies: Coded Allergies: adhesive tape (RASH ON SKIN THAT IT TOUCHES 10/22/17) iodine (DAVIS SKIN WHERE APPLIED 10/22/17) povidone-iodine (DAVIS SKIN WHERE IT IS APPLIED 10/22/17) shellfish derived (HIVES ALL OVER 10/22/17) propoxyphene (GI UPSET 10/22/17) Home Med list Albuterol Sulfate 2.5 MG/3 ML (0.083 %) VIAL.NEB 1 Vial INH/JULIO TID COPD ( Reported) Albuterol Sulfate (Ventolin Hfa) 90 MCG HFA.AER.AD 2 PUF INH Q4-6 PRN PRN SHORTNESS OF BREATH Aspirin (Ecotrin*) 81 MG TABLET.DR 1 TAB PO DAILY HEART (Reported) Atorvastatin Calcium (Lipitor) 20 MG TABLET 1 TAB PO QPM CHOLESTEROL ( Reported) Budesonide/Formoterol Fumarate (Symbicort 160-4.5 Mcg Inhaler) 160 MCG-4.5 MCG/ ACTUATION HFA.AER.AD 2 PUF INH BID COPD (Reported) Cholecalciferol (Vitamin D3) (Vitamin D3) 1,000 UNIT CAPSULE 1 CAP PO DAILY HEALTH SUPPLEMENT (Reported) Diltiazem HCl (Diltiazem 24HR Cd) 120 MG CAP.ER.24H 1 CAP PO DAILY HEART/BP ( Reported) Esomeprazole Magnesium (Nexium) 20 MG CAPSULE.DR 1 CAP PO DAILY ACID REFLUX ( Reported) Fluticasone Propionate 50 MCG/ACTUATION SPRAY.SUSP 2 SPRAY NASB DAILY ALLERGIES (Reported) Furosemide 40 MG TABLET 1 TAB PO BID DIURETIC (Reported) Guaifenesin (Mucinex) 1,200 MG TAB.ER.12H 1 TAB PO BID ALLERGIES (Reported) Hydrocodone/Acetaminophen (Hydrocodon-Acetaminophen 5-325) 5 MG-325 MG TABLET 1 TAB PO BID PRN pain Losartan Potassium 100 MG TABLET 0.5 TAB PO BID BP (Reported) Magnesium Oxide 400 MG TABLET 1 TAB PO DAILY SUPPLEMENT (Reported) Metoprolol Succinate 25 MG TAB 1 TAB PO DAILY BP (Reported) Thorpe-3 Acid Ethyl Esters (Lovaza) 1 GRAM CAPSULE 1 CAP PO BID CHOLESTEROL/ TRIGLYCERIDES (Reported) Potassium Chloride 20 MEQ TAB.ER.PRT 1 TAB PO DAILY SUPPLEMENT (Reported) Rivaroxaban (Xarelto) 20 MG TABLET 1 TAB PO QPM A FIB (Reported) with food Compliance With Home Meds: GOOD Past History Travel History Traveled to [place] past 21 day No Medical History Neurological: NONE EENT: NONE Cardiovascular: AFIB, CHF, hypertension, hyperlipidemia Respiratory: COPD, pneumonia, radiation pneumonitis non-small cell lung cancer s /p lobectomy 2006 2007, s/p radiation 2013, c/b radiation pneumonitis Gastrointestinal: carcinoid syndrome, s/p resection Hepatic: NONE Renal: NONE Musculoskeletal: osteoarthritis Psychiatric: NONE Endocrine: NONE Blood Disorders: NONE Cancer(s): lung cancer RANGE MOUNTER/Reproductive: NONE History of MRSA: No History of VRE: No History of CDIFF: No Tetanus Vaccine: 08/06/17 Surgical History Surgical History: appendectomy, cholecystectomy, hip replacement, hysterectomy, status post pulmonary lobectomies lobectomies Past Family/Social History Family History Relations & Conditions if any BROTHER FH: heart attack DAUGHTER FH: breast cancer Relation not specified for: FH: throat cancer Psychosocial History Where do you live? Home Who Do You Live With? spouse Services at Home: None Primary Language: Uzbek Smoking Status: Never Smoked ETOH Use: denies use Illicit Drug Use: denies illicit drug use Living Will? yes Functional Ability ADLs Independent: dressing, eating, toileting, bathing. Ambulation: independent IADLs Independent: shopping, housework, finances, food prep, telephone, transportation , medication admin. Review of Systems Review of Systems Constitutional: Reports: see HPI. Denies: chills, malaise, weakness, unexplained weight loss. EENTM: Reports: no symptoms. Cardiovascular: Reports: no symptoms. Denies: chest pain, orthopena. Respiratory: Reports: no symptoms. GI: Reports: no symptoms. Genitourinary: Reports: no symptoms. Musculoskeletal: Reports: no symptoms. Exam & Diagnostic Data Last 24 Hrs of Vital Signs/I&O Vital Signs Date Time Temp Pulse Resp B/P B/P Pulse O2 O2 Flow FiO2 Mean Ox Delivery Rate 12/19 0054 Room Air 12/189 98.4 71 18 122/57 98 Room Air 12/18 2035 97.2 67 18 135/64 100 Room Air 12/18 2026 93 Room Air 12/18 1556 97.2 118 24 123/62 93 Room Air Room Air Intake & Output 12/19 0800 12/19 0000 12/18 1600 Intake Total 100 Output Total Balance 100 Intake, IV 100 Patient 165 lb 165 lb Weight Weight Reported by Patient Reported by Patient Measurement Method Physical Exam General Appearance Alert, Oriented X3, Cooperative, No Acute Distress Neck Supple, No LAD Lymphatic Cervical nl Cardiovascular Normal S1, Normal S2, No Murmurs, Gallops Lungs Clear to Auscultation, Normal Air Movement Abdomen Normal Bowel Sounds, Soft, No Tenderness, No Hepatospenomegaly Extremities Normal Pulses Body Front and Back (Adult) 1) erythema, warmth, tenderness, edema 2) tense bullae, cystic swelling filled with dark fluid Last 24 Hrs of Labs/Jem: Laboratory Tests 12/18/17 1950: PT 28.7 H, INR 2.76 H, APTT 39 H, CBC w Diff NO MAN DIFF REQ, RBC 3.51 L, MCV 75.4 L, MCH 24.6 L, MCHC 32.7 L, RDW 15.8 H, MPV 8.7, Gran % 70.6, Lymphocytes % 15.1 L, Monocytes % 13.3 H, Eosinophils % 0.5, Basophils % 0.5, Absolute Granulocytes 5.0, Absolute Lymphocytes 1.1 L, Absolute Monocytes 1.0 H, Absolute Eosinophils 0, Absolute Basophils 0 12/18/17 1852: Anion Gap 12, Estimated GFR > 60, BUN/Creatinine Ratio 17.5, Glucose 97, Lactic Acid 1.3, Calcium 9.1, Total Bilirubin 0.5, AST 19, ALT 29, Alkaline Phosphatase 62, Total Protein 6.3, Albumin 4.0, Globulin 2.3, Albumin/Globulin Ratio 1.7 12/18/17 1730: Lactic Acid Cancelled Diagnostic Data Other Results US SUPERFICIAL IMAGING, EXTREMITY FINDINGS: At the area of clinical concern, there is an approximate 4.3 x 3.8 x 5.7 cm subcutaneous heterogeneous soft tissue focus. This could correspond to a hematoma or complicated cyst. No vascularity is demonstrable. IMPRESSION: Hematoma, complex seroma or complex cyst at the area of clinical concern. Assessment/Plan Assessment: The patient is 86-year-old female with past medical history of chronic asthma/ COPD, 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), enlarging lingular nodule or status post radiation therapy in 2013 complicated by radiation pneumonitis, multinodular thyroid gland, hiatal hernia, GERD, HTN/mild LVH,/diastolic dysfunction, mild CAD, and atrial fibrillation on Xarelto. She presented to [facility] ED on 12/18 with complaint of increasing left leg bump along with swelling and pain -VS HR 118 rest WNL -Pertinent labs H/ MCV 75 MCH 24 BEP WNL -Imaging finding dictated above -In ED patient received Tylenol morphine and Unasyn, blood cultures were not drawn Patient is being admitted to general medicine floor and is being treated and evaluated for following conditions #Cellulitis along with complicated cyst Patient is presenting with a complex cyst vs hematoma. She is afebrile and without white count. She has surrounding erythema around the cystic swelling that is extending above her leg consistent with cellulitis -Monitor fever and WBC curve -Continue IV Unasyn -ID consult as per patient's request. -Elevate leg -Pain pathway -Draw blood cultures -Surgical consult in the morning for possible drainage -Of note patient is on Xarelto for atrial fibrillation we are going to hold the morning dose for anticipated procedure and restart it after that. #Microcytic anemia Patient is presenting with and low MCV and MCH -Anemia work up iron studies ferritin TIBC, B12 B 10 -Consider iron supplementation #Chronic medical conditions hyperlipidemia hypertension, cardiac history, GERD, status post lobectomy Continue atorvastatin, Lasix, losartan, metoprolol, diltiazem, asprin, omperazole, Symbicort and Mucinex #FC patient has been notified by her oil recovery operator Dr. Horner that she is not a candidate for intubation however she would like chest compressions and the possibility of intubation should be referred to the oil recovery operator if need arises #DVT prophylaxis with a Xarelto/ heart healthy diet As Ranked By This Provider Problem List: 1. Cellulitis Qualifiers Site of cellulitis: extremity Site of cellulitis of extremity: lower extremity Laterality: left Qualified Code: L03.116 - Cellulitis of left lower limb Core Measures/Misc (08/10) Acute Coronary Syndrome ACS Diagnosis: No Congestive Heart Failure Congestive Heart Failure Diagnosis No Cerebrovascular Accident CVA/TIA Diagnosis: No VTE (View Protocol) VTE Risk Factors Age>40 No Mechanical VTE Prophylaxis d/t N/A MechProphylax Ordered No VTE Pharm Prophylaxis d/t NA PharmProphylax ordered Sepsis (View protocol) Sepsis Present: No Jeniffer Lockett 12/19/17 0219: Resident Review Statement Resident Statement: discussed with agronomy internship Other Findings: 87-year-old woman with past medical history of chronic asthma/COPD with recurrent bronchospasm, non-small cell lung cancer and carcinoid tumor status post right and left lower lobectomies in 2006 and 2007, enlarging lingular nodule status post radiation therapy in 2013 complicated by radiation pneumonitis, hypertension, dyslipidemia, multinodular thyroid gland, hiatal hernia, GERD, Mod pulmonary hypertension, diastolic dysfunction, CAD s/p Cardiac cath in 1999, A. fib on Xarelto, h/o anemia and BRBPR. She presented to ER on December 14 with complaint of left lower leg pain and swelling status post hitting of her leg with garbage can. Left leg x-ray was done that showed no acute fracture or dislocation of left tibia or fibula. A 3.5 x 5.4 cm soft tissue density along the medial aspect of distal leg was noted. ? hematoma. Hematoma was was wrapped with Manan wrap for compression. She was instructed to apply ice and elevate her leg and got discharged on Vicodin for pain. According to patient her pain and swelling was worsening and redness was increasing around the area. She also saw Dr. Lopez 2 days ago who started her on Augmentin. Today she presents because her leg was getting worse. She also spoke to Dr. Stearns over the phone who recommended her to go to ER for further evaluation. She is also complaining of difficulty walking due to severe pain of her left leg. She denies any fever, chills. Other review of systems negative. Vitals on admission: Temperature 97.2, pulse 118, respiratory rate 24, blood pressure 123/62 and oxygen saturation 93% on room air. Pertinent physical exam findings: Left leg swollen and erythematous with large bullae on the anteromedial side of the leg. Leg is warm and tender on palpation. Pedal pulses palpable. Pertinent labs: H&H 8.6/26.4, MCV 75, INR 2.76 Left leg ultrasound showed 4.3 x 3.8 x 5.7 cm subcutaneous complex cyst without any vascularity. In ER she was given IV Tylenol, morphine and Unasyn. Assessment and plan 87-year-old woman with past medical history of chronic asthma/COPD with recurrent bronchospasm, non-small cell lung cancer and carcinoid tumor status post right and left lower lobectomies in 2006 and 2008, enlarging lingular nodule status post radiation therapy in 2014 complicated by radiation pneumonitis, hypertension, dyslipidemia, multinodular thyroid gland, hiatal hernia, GERD, Mod pulmonary hypertension, diastolic dysfunction, CAD s/p Cardiac cath in 1999, A. fib on Xarelto, h/o anemia and BRBPR is going to be admitted on general medicine floor for left lower extremity cellulitis and a subcutaneous complex cyst/bullae. Monitor vitals closely. Continue IV Unasyn. Blood cultures 2. leg elevation. Surgical consult in a.m. Will continue all her home medications except Xarelto. Will restart after surgical evaluation or possible intervention. Cardio consult (Dr. Stearns) in am. Pain management pathway. DVT prophylaxis. Full code
[2017-12-19 02:00] VITALS: BP 120/58
[2017-12-19 06:46] VITALS: BP 122/60
--- NOTE | 2017-12-19 07:18 | PN- Housestaff ---
See Addendum Subjective Follow-up For: Left leg hematome, cellulitis Microcytic anemia A. fib on Eliquis Subjective: Admission was seen and examined this morning, complains of swelling and pain in her right lower extremity Review of Systems Constitutional: Denies: no symptoms. Cardiovascular: Denies: no symptoms. Respiratory: Denies: no symptoms. Gastrointestinal: Denies: no symptoms. Skin: Reports: lesions (red tense 5X5 bulla on RLE). Neurological/Psychological: Denies: no symptoms. Objective Last 24 Hrs of Vital Signs/I&O Vital Signs Date Time Temp Pulse Resp B/P B/P Pulse O2 O2 Flow FiO2 Mean Ox Delivery Rate 12/19 1055 86.0 108 20 122/54 12/19 1012 86.0 108 20 122/54 12/19 0646 86.0 86 20 122/60 95 Room Air 12/19 0200 97.8 85 20 120/58 94 Room Air 12/19 0054 Room Air 12/18 2249 98.4 71 18 122/57 98 Room Air 12/18 2035 97.2 67 18 135/64 100 Room Air 12/18 2026 93 Room Air 12/18 1556 97.2 118 24 123/62 93 Room Air Room Air Intake & Output 12/19 1600 12/19 0800 12/19 0000 Intake Total 600 100 Output Total 600 Balance -600 600 100 Intake, IV 100 Intake, Oral 600 Output, Urine 600 Patient 165 lb Weight Weight Reported by Patient Measurement Method Physical Exam General Appearance: Alert, Oriented X3, Cooperative, No Acute Distress HEENT: Atraumatic, PERRLA, EOMI, Mucous Membr. moist/pink Cardiovascular: Normal S1, Normal S2, No Murmurs, irregular Lungs: Clear to Auscultation, Normal Air Movement Abdomen: Normal Bowel Sounds, Soft, No Tenderness Extremities: No Clubbing, No Cyanosis, tense bulla 5X5 cm , reddish , surrounding skin show features of cellulitis Vascular: Normal Pulses, Pulses Symmetrical Current Medications: Current Medications Sig/Heena Start time Last Medication Dose Route Stop Time Status Admin Acetaminophen 650 MG Q8P PRN 12/19 0015 AC PO Acetaminophen 0 .STK-MED ONE 12/18 2023 DC IV Acetaminophen 1,000 MG ONCE ONE 12/18 1999 DC 12/18 N/A 1 UNIT IV 12/18 Albuterol Sulfate 3 ML BID 12/19 1000 AC INH Ampicillin Sodium/ 3,000 MG Q6 12/19 0600 AC 12/19 Sulbactam Sodium IV 1056 Sodium Chloride 100 ML Ampicillin Sodium/ 3,000 MG ONCE ONE 12/18 2315 DC 12/18 Sulbactam Sodium IV 12/18 2344 2346 Sodium Chloride 100 ML Aspirin Buffered 81 MG DAILY 12/19 1000 AC 12/19 PO 0924 Atorvastatin Calcium 20 MG QPM 12/19 2200 AC PO Budesonide/ 2 PUF BID 12/19 1000 AC 12/19 Formoterol Fumarate INH 0925 Cholecalciferol 1,000 IU DAILY 12/19 1000 AC 12/19 PO 0924 Diltiazem HCl 120 MG DAILY 12/19 1000 AC 12/19 PO 1012 Fish Oil 1,050 MG BID 12/19 1000 AC 12/19 PO 0923 Fluticasone 2 SPRAY DAILY 12/19 1000 AC 12/19 Propionate MARCO 0924 Furosemide 40 MG BID 12/19 1000 AC 12/19 PO 0924 Guaifenesin 1,200 MG BID 12/19 1000 AC 12/19 PO 0923 Losartan Potassium 50 MG BID 12/19 1000 AC PO Magnesium Oxide 400 MG DAILY 12/19 1000 AC 12/19 PO 0923 Metoprolol Succinate 25 MG DAILY 12/19 1000 AC 12/19 PO 1012 Morphine Sulfate 2 MG Q6P PRN 12/19 0015 AC 12/19 IV 0924 Morphine Sulfate 0 .STK-MED ONE 12/18 2213 DC .ROUTE Morphine Sulfate 4 MG ONCE ONE 12/18 2129 DC 12/18 IV 12/18 2130 222 Omeprazole 20 MG DAILY AC 12/19 0700 AC 12/19 PO 0537 Potassium Chloride 20 MEQ DAILY 12/19 1000 AC 12/19 PO 0924 Tramadol HCl 50 MG Q6P PRN 12/19 0015 AC PO Last 24 Hrs of Lab/Jem Results Last 24 Hrs of Labs/Mics: Laboratory Tests 12/19/17 0748: PT 22.7 H, INR 2.18 H, CBC w Diff NO MAN DIFF REQ, RBC 3.32 L, MCV 74.7 L, MCH 24.9 L, MCHC 33.3, RDW 16.0 H, MPV 9.0, Gran % 72.3, Lymphocytes % 15.5 L , Monocytes % 11.6 H, Eosinophils % 0.4, Basophils % 0.2, Absolute Granulocytes 5.5, Absolute Lymphocytes 1.2, Absolute Monocytes 0.9 H, Absolute Eosinophils 0 , Absolute Basophils 0 12/18/17 1950: PT 28.7 H, INR 2.76 H, APTT 39 H, CBC w Diff NO MAN DIFF REQ, RBC 3.51 L, MCV 75.4 L, MCH 24.6 L, MCHC 32.7 L, RDW 15.8 H, MPV 8.7, Gran % 70.6, Lymphocytes % 15.1 L, Monocytes % 13.3 H, Eosinophils % 0.5, Basophils % 0.5, Absolute Granulocytes 5.0, Absolute Lymphocytes 1.1 L, Absolute Monocytes 1.0 H, Absolute Eosinophils 0, Absolute Basophils 0 12/18/17 1852: Anion Gap 12, Estimated GFR > 60, BUN/Creatinine Ratio 17.5, Glucose 97, Lactic Acid 1.3, Calcium 9.1, Iron 22 L, TIBC 392, Ferritin 29.6, Total Bilirubin 0.5, AST 19, ALT 29, Alkaline Phosphatase 62, Total Protein 6.3, Albumin 4.0, Globulin 2.3, Albumin/Globulin Ratio 1.7, Vitamin B12 957 H, Folate 10.1 12/18/17 1730: Lactic Acid Cancelled Microbiology 12/19 0940 BLOOD: Blood Culture - RECD 12/19 924 BLOOD: Blood Culture - RECD Assessment/Plan Assessment: 87-year-old female with past medical history of chronic asthma/COPD, 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) , enlarging lingular nodule or status post radiation therapy in 2013 complicated by radiation pneumonitis, multinodular thyroid gland, hiatal hernia, GERD, HTN/ mild LVH,/diastolic dysfunction, mild CAD, and atrial fibrillation on Xarelto. She presented to [facility] ED on 12/18 with complaint of increasing left leg bump along with swelling and pain. Given her history of being on Xarelto increases possibility for hematoma collection #RLE large posttraumatic bulla of the left pretibial region s/p I&D -I&D was made at bedside today AND considerable amount of pus and hematoma was evacuated. -Patient will go to the OR on Friday if local care FAILS -Monitor fever and WBC curve -Continue IV Unasyn -ID consult as per patient's request. -Elevate leg -Pain pathway -F/U ON blood cultures - local wound care as per wound care recomm -Follow up on CBC in the evening to rule out extensive bleeding -Goal Hemoglobin is above 8 Given her cardiac history #History of A. fib on XERALTO We'll hold XERALTO for now in anticipation of surgery on Friday We'll start IV heparin drip, to be stopped before surgery according to his recommendation Patient is full code DVT prophylaxis with IV heparin Regular diet Problem List: 1. Coagulopathy 2. Cellulitis 3. Hematoma Pain Ratin Pain Location: RLE Pain Goal: Pain 4 or less Pain Plan: pathway Tomorrow's Labs & Rationales: cbc bep DVT/Prophylaxis: mechanical, pharmacological
[2017-12-19 09:29] LABS: ABSOLUTE BASOPHIL COUNT 0 /CUMM (0.0-0.2); ABSOLUTE EOSINOPHIL COUNT 0 /CUMM (0.0-0.7); ABSOLUTE GRANULOCYTE CT 5.5 /CUMM (1.4-6.5); ABSOLUTE LYMPH COUNT 1.2 /CUMM (1.2-3.4); ABSOLUTE MONOCYTE COUNT 0.9 /CUMM (0.10-0.60); BASOPHIL % 0.2 % (0.0-2.0); EOSINOPHIL % 0.4 % (0-5); GRANULOCYTE % 72.3 % (42.2-75.2); HEMATOCRIT 24.8 % (37-47); MEAN CORPUSCULAR HGB 24.9 PG (27.0-31.0); MEAN CORPUSCULAR HGB CONC 33.3 G/DL (33.0-37.0); MEAN CORPUSCULAR VOLUME 74.7 FL (81.0-99.0); PLATELET COUNT 219 /CUMM (130-400); RED BLOOD CELL CT 3.32 /CUMM (4.20-5.40); WHITE BLOOD CELL COUNT 7.6 /CUMM (4.8-10.8)
[2017-12-19 09:38] LABS: PT 22.7 SEC (9.4-12.5)
--- NOTE | 2017-12-19 13:28 | Admission Certification ---
Admission Certification Certification Statement - As attending physician, I certify that at the time of - admission, based on clinical presentation, severity of - symptoms, need for further diagnostic testing and - therapeutic interventions, and risk of adverse outcomes - without in-hospital treatment, in my clinical assessment, - this patient requires an acute hospital stay for a minimum - of two nights or longer. I have also considered psychsocial - factors such as support system, advanced age, financial - issues, cognitive issues, and failed out-patient treatments, - past re-admission history, safety of patient, and lack of - compliance as applicable. Specific rationale supporting this admission is: Painful hematoma cellulitis on her leg posttraumatic in a patient on anticoagulation
--- NOTE | 2017-12-19 13:31 | PN- Att Addend ---
Attending Addendum Attending Brief Note 87-year-old white female who had trauma to her left leg on December 14. After that developed a big hematoma (patient on anticoagulation). Hematoma has little redness around it her pain medications are not helping so much throbbing. Patient has been on antibiotics. Patient had to return to the emergency room because the pain is so bad that it was seen by surgery, electively after holding Ramirez anticoagulation will have drainage of the hematoma and hopefully that will relieve the pain Patient had an ultrasound which showed no DVT. Her white count is normal Laboratory Tests 12/19/17 0748: PT 22.7 H, INR 2.18 H, CBC w Diff NO MAN DIFF REQ, RBC 3.32 L, MCV 74.7 L, MCH 24.9 L, MCHC 33.3, RDW 16.0 H, MPV 9.0, Gran % 72.3, Lymphocytes % 15.5 L , Monocytes % 11.6 H, Eosinophils % 0.4, Basophils % 0.2, Absolute Granulocytes 5.5, Absolute Lymphocytes 1.2, Absolute Monocytes 0.9 H, Absolute Eosinophils 0 , Absolute Basophils 0 12/18/17 1950: PT 28.7 H, INR 2.76 H, APTT 39 H, CBC w Diff NO MAN DIFF REQ, RBC 3.51 L, MCV 75.4 L, MCH 24.6 L, MCHC 32.7 L, RDW 15.8 H, MPV 8.7, Gran % 70.6, Lymphocytes % 15.1 L, Monocytes % 13.3 H, Eosinophils % 0.5, Basophils % 0.5, Absolute Granulocytes 5.0, Absolute Lymphocytes 1.1 L, Absolute Monocytes 1.0 H, Absolute Eosinophils 0, Absolute Basophils 0 12/18/17 1852: Anion Gap 12, Estimated GFR > 60, BUN/Creatinine Ratio 17.5, Glucose 97, Lactic Acid 1.3, Calcium 9.1, Iron 22 L, TIBC 392, Ferritin 29.6, Total Bilirubin 0.5, AST 19, ALT 29, Alkaline Phosphatase 62, Total Protein 6.3, Albumin 4.0, Globulin 2.3, Albumin/Globulin Ratio 1.7, Vitamin B12 957 H, Folate 10.1 12/18/17 1730: Lactic Acid Cancelled
[2017-12-19 14:28] VITALS: BP 122/60
[2017-12-19 20:10] LABS: ABSOLUTE BASOPHIL COUNT 0 /CUMM (0.0-0.2); ABSOLUTE EOSINOPHIL COUNT 0 /CUMM (0.0-0.7); ABSOLUTE GRANULOCYTE CT 6.5 /CUMM (1.4-6.5); ABSOLUTE LYMPH COUNT 1.3 /CUMM (1.2-3.4); BASOPHIL % 0.4 % (0.0-2.0); EOSINOPHIL % 0.1 % (0-5); GRANULOCYTE % 73.7 % (42.2-75.2); HEMATOCRIT 23.7 % (37-47); MEAN CORPUSCULAR HGB 24.7 PG (27.0-31.0); MEAN CORPUSCULAR HGB CONC 33.1 G/DL (33.0-37.0); MEAN CORPUSCULAR VOLUME 74.7 FL (81.0-99.0); MEAN PLATELET VOLUME 8.9 FL (7.4-10.4); PLATELET COUNT 259 /CUMM (130-400); RBC DISTRIBUTION WIDTH 16.3 % (11.5-14.5); RED BLOOD CELL CT 3.18 /CUMM (4.20-5.40); WHITE BLOOD CELL COUNT 8.8 /CUMM (4.8-10.8)
[2017-12-19 21:05] LABS: PTT 32 SEC (25-37)
[2017-12-19 21:54] VITALS: BP 124/60
--- NOTE | 2017-12-19 22:42 | Event Note ---
Event Note Event Note: S: Patient continues to have bleeding from open I&D site B: Patient currently on heparin for A. fib just in case for surgery on Friday A/R: Patient hemoglobin 8.6 and dropped to 7.[address] Arzate. Will dc heparin for now. Will transfuse 1 unit prbc. Also contacted surgical PA who thought the soaked dressings was typical for the patient's I+D and she was not concerned about excessive bleeding.
[2017-12-19 23:36] LABS: ABSOLUTE EOSINOPHIL COUNT 0 /CUMM (0.0-0.7); ABSOLUTE MONOCYTE COUNT 0.9 /CUMM (0.10-0.60); EOSINOPHIL % 0 % (0-5); HEMATOCRIT 22.2 % (37-47); RBC DISTRIBUTION WIDTH 16.3 % (11.5-14.5); WHITE BLOOD CELL COUNT 9.5 /CUMM (4.8-10.8)
[2017-12-19 23:39] LABS: ABSOLUTE BASOPHIL COUNT 0 /CUMM (0.0-0.2); ABSOLUTE GRANULOCYTE CT 7.2 /CUMM (1.4-6.5); ABSOLUTE LYMPH COUNT 1.3 /CUMM (1.2-3.4); BASOPHIL % 0.3 % (0.0-2.0); GRANULOCYTE % 76.3 % (42.2-75.2); MEAN CORPUSCULAR HGB 24.3 PG (27.0-31.0); MEAN CORPUSCULAR HGB CONC 32.9 G/DL (33.0-37.0); MEAN PLATELET VOLUME 8.7 FL (7.4-10.4); PLATELET COUNT 244 /CUMM (130-400)
[2017-12-20 06:00] VITALS: BP 124/54
--- NOTE | 2017-12-20 08:35 | Discharge Summary ---
Visit Information Visit Dates Admission Date: 12/18/17 Discharge Date: 12/26/17 Hospital Course Course Attending Physician: Antonio Lopez MD Primary Care Physician: Antonio Lopez MD Hospital Course: 87-year-old female with past medical history of chronic asthma/COPD, 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) , enlarging lingular nodule or status post radiation therapy in 2013 complicated by radiation pneumonitis, multinodular thyroid gland, hiatal hernia, GERD, HTN/ mild LVH,/diastolic dysfunction, mild CAD, and atrial fibrillation on Xarelto presented to [facility] for left leg swelling and pain after a minor trauma. The patient was originally admitted and started on Unasyn for concerni for cellulitis. Bedside incision and drainage was performed on 12/19/17, with drainage of hematoma. The patient then went to the operating room three days later for further debridement and wound vac placement. Wound care was consulted , the leg was elevated and wrapped. Antibiotics were discontinued. The patient lost a significant amount of blood and required two units pRBC transfusion during which time Xarelto was held. After repeat debridement Xarelto was restarted at 15mg daily instead of 20mg daily, given her mildly reduced creatinine clearance, after discussion with the pharmacist. Her hospital course was complicated by acute hypoxemic respiratory failure with tachypnea, wheezing, and hypoxia to 86% SpO2 on room air at rest. Pulmonology was consulted. The patient was treated for COPD exacerbation and bronchitis with azithromycin and steroids but was also given intravenous furosemide for possible pulmonary vascular congestion given the blood transfusions and her history of diastolic heart failure. The patient improved and was discharged home with health services and plans to follow up with her primary care physician and the wound care center. Allergies: Coded Allergies: adhesive tape (RASH ON SKIN THAT IT TOUCHES 10/22/17) iodine (DAVIS SKIN WHERE APPLIED 10/22/17) povidone-iodine (DAVIS SKIN WHERE IT IS APPLIED 10/22/17) shellfish derived (HIVES ALL OVER 10/22/17) propoxyphene (GI UPSET 10/22/17) Disposition Summary Disposition Principal Diagnosis: Acute hypoxemic respiratory failure Acute blood loss anemia secondary to left lower extremity traumatic hematoma on anticoagulation Additional Diagnosis: Atrial fibrillation COPD Discharge Disposition: home health services Discharge Instructions General Discharge Information Code Status: Full Code Patient's Diet: Heart healthy Patient's Activity: As tolerated Follow-Up Instructions/Appts: 1- Please follow up with PCP in 1 week of discharge 2- Please follow up with wound care center for wound management Medications at Discharge Discharge Medications: Stop taking the following medications: Rivaroxaban (Xarelto) 20 MG TABLET ORAL Every night Continue taking these medications: Fluticasone Propionate (Fluticasone Propionate) 50 MCG/ACTUATION SPRAY.SUSP 2 Heaters Both sides of nose DAILY Comments: Last Taken:12/26/17 Time:10 AM Metoprolol Succinate (Metoprolol Succinate) 25 MG TAB 1 Tablet ORAL DAILY Comments: Last Taken: 12/26/17 Time: 10 AM Losartan Potassium (Losartan Potassium) 100 MG TABLET 0.5 Tablet ORAL TWICE DAILY Comments: Last Taken: 12/26/17 Time: 10 AM Atorvastatin Calcium (Lipitor) 20 MG TABLET 1 Tablet ORAL Every night Comments: Last Taken: 12/25/17 Time: 9:20 PM Furosemide (Furosemide) 40 MG TABLET 1 Tablet ORAL TWICE DAILY Comments: Last Taken: 12/26/17 Time: 10 AM Albuterol Sulfate (Albuterol Sulfate) 2.5 MG/3 ML (0.083 %) VIAL.NEB 1 Vial Inhale Solution THREE TIMES DAILY Comments: Last Taken: 08/06/17 Time: 830 AM Magnesium Oxide (Magnesium Oxide) 400 MG TABLET 1 Tablet ORAL DAILY Comments: Last Taken:12/26/17 Time:10AM Guaifenesin (Mucinex) 1,200 MG TAB.ER.12H 1 Tablet ORAL TWICE DAILY Comments: Last Taken: 12/26/17 Time: 10 AM [place]-3 Acid Ethyl Esters (Lovaza) 1 GRAM CAPSULE 1 Capsule ORAL TWICE DAILY Comments: Last Taken:09/05/17 Time:10AM Aspirin (Ecotrin*) 81 MG TABLET.DR 1 Tablet ORAL DAILY Comments: Last Taken: 12/26/17 Time: 10 AM Potassium Chloride (Potassium Chloride) 20 MEQ TAB.ER.PRT 1 Tablet ORAL DAILY Comments: Last Taken:12/25/17 Time:10AM Albuterol Sulfate (Ventolin Hfa) 90 MCG HFA.AER.AD 2 Puff Inhale through mouth EVERY 4-6 HOURS NEEDED as needed for SHORTNESS OF BREATH Qty = 1 Comments: NOT GIVEN IN HOSPITAL Budesonide/Formoterol Fumarate (Symbicort 160-4.5 Mcg Inhaler) 160 MCG-4.5 MCG/ ACTUATION HFA.AER.AD 2 Puff Inhale through mouth TWICE DAILY Qty = 306 Comments: Last Taken:12/26/17 Time:10AM Diltiazem HCl (Diltiazem 24HR Cd) 120 MG CAP.ER.24H 1 Capsule ORAL DAILY Comments: Last Taken:12/26/17 Time:10 AM Hydrocodone/Acetaminophen (Hydrocodon-Acetaminophen 5-325) 5 MG-325 MG TABLET 1 Tablet ORAL TWICE DAILY as needed for pain Qty = 10 Cholecalciferol (Vitamin D3) (Vitamin D3) 1,000 UNIT CAPSULE 1 Capsule ORAL DAILY Esomeprazole Magnesium (Nexium) 20 MG CAPSULE.DR 1 Capsule ORAL DAILY Start taking the following new medications: Rivaroxaban (Xarelto) 15 MG TABLET 1 Tablet ORAL DAILY Qty = 30 No Refills Instructions: . Azithromycin (Azithromycin) 500 MG TABLET 1 Tablet ORAL DAILY Qty = 3 No Refills Instructions: . Prednisone (Prednisone) 10 MG TABLET 1 Tablet ORAL As Directed Qty = 30 No Refills Instructions: TAKE 4 TABS 40MG 2/3, 2/4, 2/5 TAKE 3 TABS 30MG 26, 2, 2 TAKE 2 TABS 20MG 01/02, 01/03, 2 TAKE 1 TAB 10MG 01/05, 01/06, 01/07. Copies To: Jinny HALL,Darian Dalton; Antonio Lopez MD Attending Review Statement Documenting Attending: Antonio Lopez MD
--- NOTE | 2017-12-20 08:35 | Patient Discharge Instructions ---
Discharge Instructions General Discharge Information You were seen/treated for: RLE hematoma, cellulitis You had these procedures: I&D Special Instructions: 1-Please follow up with your PCP in 1 week of discharge 2-Please follow up with wound care center for wound management Acute Coronary Syndrome Inclusion Criteria At DC or during hospital stay patient has or had the following: ACS DIAGNOSIS No Discharge Core Measures Meds if any: Prescribed or Continued at Discharge Meds if any: NOT Prescribed or Continued at Discharge Congestive Heart Failure Inclusion Criteria At DC or during hospital stay patient has or had the following: CHF DIAGNOSIS No Discharge Core Measures Meds if any: Prescribed or Continued at Discharge Meds if any: NOT Prescribed or Continued at Discharge Cerebrovascular accident Inclusion Criteria At DC or during hospital stay patient has or had the following: CVA/TIA Diagnosis No Discharge Core Measures Meds if any: Prescribed or Continued at Discharge Meds if any: NOT Prescribed or Continued at Discharge Venous thromboembolism Inclusion Criteria VTE Diagnosis No VTE Type NONE VTE Confirmed by (Test) NONE Discharge Core Measures - Per Current guidelines, there needs to be overlap - treatment for the first 5 days of Warfarin therapy. - If discharged on Warfarin prior to 5 days of - overlap therapy, the patient will need to be - assessed for post discharge needs including - *Post discharge parental anticoagulation - *Warfarin and/or parental anticoagulation education - *Follow up date to check INR post discharge At least 5 days overlap therapy as Inpatient No Meds if any: Prescribed or Continued at Discharge Note: Overlap Therapy is Warfarin and Anticoagulant Meds if any: NOT Prescribed or Continued at Discharge
--- NOTE | 2017-12-20 09:02 | PN- Housestaff ---
[place] [facility] 0854: Subjective Follow-up For: Left leg hematome, cellulitis Anemia Subjective: No overnight events. She remained afebrile overnight. Seen and examined this morning. Patient denied any chest pain, short of breath, nausea, vomiting, chills, fever, abdominal pain and dysuria. Patient is using 1 L of oxygen maintaining saturation 95%. Patient having dressing on the left leg that's not socked. Review of Systems Constitutional: Reports: no symptoms. EENTM: Reports: no symptoms. Cardiovascular: Reports: no symptoms. Respiratory: Reports: no symptoms. Gastrointestinal: Reports: no symptoms. Genitourinary: Reports: no symptoms. Neurological/Psychological: Reports: no symptoms. Objective Last 24 Hrs of Vital Signs/I&O Vital Signs Date Time Temp Pulse Resp B/P B/P Pulse O2 O2 Flow FiO2 Mean Ox Delivery Rate 12/20 0814 98.0 80 18 140/76 12/20 0813 98.0 8 18 140/76 12/20 0600 98.2 78 20 124/54 95 Nasal 1.0L Cannula 12/19 2156 103 124/60 12/19 2154 98.2 103 20 124/60 90 12/19 1428 98.4 93 18 122/60 92 Room Air 12/19 1055 86.0 108 20 122/54 12/19 1012 86.0 108 20 122/54 Intake & Output 12/20 1600 12/20 0800 12/20 0000 Intake Total 700 178 Output Total 650 550 Balance 50 -372 Intake, Blood 350 Product Intake, IV 250 78 Intake, Oral 100 100 Output, Urine 650 550 Physical Exam General Appearance: Alert, Oriented X3, Cooperative Skin Temp/Moisture Exam: Warm/Dry Sepsis Skin Exam (color): Normal for Ethnicity HEENT: Atraumatic, PERRLA, EOMI Neck: Supple Cardiovascular: Normal S1, Normal S2 Lungs: Clear to Auscultation Abdomen: Soft, No Tenderness Neurological: Normal Speech, Normal Tone Extremities: No Edema Assessment/Plan Assessment: 87-year-old female with past medical history of chronic asthma/COPD, 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) , enlarging lingular nodule or status post radiation therapy in 2013 complicated by radiation pneumonitis, multinodular thyroid gland, hiatal hernia, GERD, HTN/ mild LVH,/diastolic dysfunction, mild CAD, and atrial fibrillation on Xarelto. She presented [facility] on 12/18 with complaint of increasing left leg bump along with swelling and pain. Given her history of being on Xarelto increases possibility for hematoma collection RLE large posttraumatic bulla of the left pretibial region s/p I&D: -I&D was made at bedside yesterday and considerable amount of pus and hematoma was evacuated. -Monitor fever and WBC curve -Continue IV Unasyn -Elevate leg -F/U on blood cultures - local wound care as per wound care recomm -Patient will go to the OR on Friday if local care FAILS -Goal Hemoglobin is above 8 Given her cardiac history. Acute blood loss anemia: -Patient's H&H dropped from 8.6/26.4 to 7.3/22.2. -We will check her CBCs patient may need transfusion if it remained below 8. -We will keep an eye on her left leg wound if it's losing blood and hold IV drip for now. History of A. fib on XERALTO: We'll hold XERALTO for now in anticipation of surgery on Friday We'll start IV heparin drip, to be stopped before surgery according to his recommendation Patient is full code DVT prophylaxis with IV heparin Regular diet Problem List: 1. Hematoma 2. Cellulitis Pain Ratin Pain Location: NONE Pain Goal: Remain pain free Pain Plan: TYLENOL FOR MILD PAIN Tomorrow's Labs & Rationales: CBC/BEP Fernando Arzate MD 12/20/17 1554: Objective Last 24 Hrs of Vital Signs/I&O Vital Signs Date Time Temp Pulse Resp B/P B/P Pulse O2 O2 Flow FiO2 Mean Ox Delivery Rate 12/20 1441 Nasal 2.0L Cannula 12/20 1409 97.9 77 20 104/62 94 12/20 0814 98.0 80 18 140/76 12/20 0813 98.0 8 18 140/76 12/20 0800 96 Nasal 1.0L Cannula 12/20 0600 98.2 78 20 124/54 95 Nasal 1.0L Cannula 12/19 2156 103 124/60 12/19 2154 98.2 103 20 124/60 90 Intake & Output 12/20 1600 12/20 0800 12/20 0000 Intake Total 530 700 178 Output Total 650 550 Balance 530 50 -372 Intake, Blood 350 Product Intake, IV 50 250 78 Intake, Oral 480 100 100 Output, Urine 650 550 Attending MD Review Statement Attending Statement Attending MD Statement: examined this patient, discussed with family, reviewed EMR data (avail), discussed with nursing, reviewed images, amended to note Attending Assessment/Plan: Mrs. Hernandez was interviewed and examined. Her EMR was reviewed. She still notes some leg pain which is tolerable with analgesia. She also notes some wheezing. She denies fever and chills. She has remained afebrile. Heart and respiratory rates are satisfactory. Blood pressures are also satisfactory. She is saturating adequately on 2 L via nasal cannula. He is in no acute distress. Her exam is notable for mildly decreased breath sounds with a few expiratory squeaks. Cardiovascular exam reveals. Her left lower extremity dressing is clean and dry. Her WBC are normal and her hematocrit is now 26.2. Metabolic studies are acceptable and her cultures her without growth. We should resume her anticoagulation with heparin at this time. Follow-up CBC should be obtained to assure that her bleeding is stabilized. Should increase her respiratory treatments to 4 times daily and as needed. We should continue her antibiotics and her maintenance medications.
[2017-12-20 10:04] LABS: ABSOLUTE BASOPHIL COUNT 0 /CUMM (0.0-0.2); ABSOLUTE EOSINOPHIL COUNT 0 /CUMM (0.0-0.7); ABSOLUTE GRANULOCYTE CT 6.6 /CUMM (1.4-6.5); ABSOLUTE LYMPH COUNT 1.4 /CUMM (1.2-3.4); ABSOLUTE MONOCYTE COUNT 0.7 /CUMM (0.10-0.60); BASOPHIL % 0.4 % (0.0-2.0); EOSINOPHIL % 0.1 % (0-5); GRANULOCYTE % 75.6 % (42.2-75.2); HEMATOCRIT 26.2 % (37-47); MEAN CORPUSCULAR HGB 25.3 PG (27.0-31.0); MEAN CORPUSCULAR HGB CONC 32.7 G/DL (33.0-37.0); MEAN CORPUSCULAR VOLUME 77.3 FL (81.0-99.0); MEAN PLATELET VOLUME 8.8 FL (7.4-10.4); PLATELET COUNT 242 /CUMM (130-400); RED BLOOD CELL CT 3.39 /CUMM (4.20-5.40); WHITE BLOOD CELL COUNT 8.8 /CUMM (4.8-10.8)
[2017-12-20 10:06] LABS: PTT 29 SEC (25-37)
[2017-12-20 14:09] VITALS: BP 104/62
[2017-12-20 20:27] LABS: ABSOLUTE BASOPHIL COUNT 0.1 /CUMM (0.0-0.2); ABSOLUTE EOSINOPHIL COUNT 0 /CUMM (0.0-0.7); ABSOLUTE GRANULOCYTE CT 5.8 /CUMM (1.4-6.5); ABSOLUTE LYMPH COUNT 1.7 /CUMM (1.2-3.4); ABSOLUTE MONOCYTE COUNT 0.9 /CUMM (0.10-0.60); BASOPHIL % 0.6 % (0.0-2.0); EOSINOPHIL % 0.2 % (0-5); GRANULOCYTE % 68.3 % (42.2-75.2); HEMATOCRIT 23.9 % (37-47); MEAN CORPUSCULAR HGB 25.4 PG (27.0-31.0); MEAN CORPUSCULAR HGB CONC 33.3 G/DL (33.0-37.0); MEAN CORPUSCULAR VOLUME 76.4 FL (81.0-99.0); MEAN PLATELET VOLUME 8.7 FL (7.4-10.4); PLATELET COUNT 247 /CUMM (130-400); RBC DISTRIBUTION WIDTH 16.5 % (11.5-14.5); RED BLOOD CELL CT 3.13 /CUMM (4.20-5.40); WHITE BLOOD CELL COUNT 8.5 /CUMM (4.8-10.8)
[2017-12-20 23:29] LABS: PTT 76 SEC (25-37)
[2017-12-21 06:20] VITALS: BP 112/66
[2017-12-21 09:24] LABS: ABSOLUTE BASOPHIL COUNT 0 /CUMM (0.0-0.2); ABSOLUTE EOSINOPHIL COUNT 0 /CUMM (0.0-0.7); ABSOLUTE GRANULOCYTE CT 5.9 /CUMM (1.4-6.5); ABSOLUTE LYMPH COUNT 1.6 /CUMM (1.2-3.4); ABSOLUTE MONOCYTE COUNT 0.4 /CUMM (0.10-0.60); BASOPHIL % 0.4 % (0.0-2.0); EOSINOPHIL % 0.6 % (0-5); GRANULOCYTE % 74.1 % (42.2-75.2); HEMATOCRIT 23.4 % (37-47); MEAN CORPUSCULAR HGB 25.5 PG (27.0-31.0); MEAN CORPUSCULAR HGB CONC 33.2 G/DL (33.0-37.0); MEAN PLATELET VOLUME 8.9 FL (7.4-10.4); PLATELET COUNT 234 /CUMM (130-400); RBC DISTRIBUTION WIDTH 16.9 % (11.5-14.5); RED BLOOD CELL CT 3.04 /CUMM (4.20-5.40)
[2017-12-21 12:30] LABS: PTT 57 SEC (25-37)
--- NOTE | 2017-12-21 12:49 | PN- General Surgery ---
See Addendum Subjective Subjective: Reports discomfort related to leg hematoma, i&d site. Dressing changed by nurse yesterday. Objective Vital Signs and I&Os Vital Signs Date Time Temp Pulse Resp B/P B/P Pulse O2 O2 Flow FiO2 Mean Ox Delivery Rate 12/21 1050 94 Room Air 12/21 0942 98.2 82 16 122/66 12/21 0941 98.2 80 16 122/66 12/21 0800 95 Nasal 1.0L Cannula 12/21 0620 98.2 81 20 112/66 94 Nasal Cannula 12/21 0000 Nasal 1.0L Cannula 12/20 2128 85 124/52 12/20 1929 93 Nasal 2.0L Cannula 12/20 1600 Nasal 1.0L Cannula 12/20 1441 Nasal 2.0L Cannula 12/20 1409 97.9 77 20 104/62 94 Intake & Output 12/21 1600 12/21 0800 12/21 0000 12/20 1600 12/20 0800 12/20 0000 Intake Total 550 204 530 700 178 Output Total 700 651 650 550 Balance -150 -447 530 50 -372 Intake, Blood 350 Product Intake, IV 450 104 50 250 78 Intake, Oral 100 100 480 100 100 Number 1 Bowel Movements Output, Stool 1 Output, Urine 700 650 650 550 Physical Exam: Left leg - dressing removed. dense clot remains within excised area of left pre- tibial region. area irrigated with large amount of sterile water and redressed with adaptic and dry guaze dressing. nvi. Current Medications: Current Medications Sig/Heena Start time Last Medication Dose Route Stop Time Status Admin Acetaminophen 650 MG Q8P PRN 12/19 0015 AC 12/20 PO 0921 Albuterol Sulfate 3 ML BID 12/20 1450 AC 12/21 INH 1047 Ampicillin Sodium/ 3,000 MG Q6 12/19 0600 AC 12/21 Sulbactam Sodium IV 1245 Sodium Chloride 100 ML Aspirin Buffered 81 MG DAILY 12/19 1000 AC 12/21 PO 0942 Atorvastatin Calcium 20 MG QPM 12/19 2200 AC 12/20 PO 2128 Budesonide/ 2 PUF BID 12/19 1000 AC 12/21 Formoterol Fumarate INH 0943 Cholecalciferol 1,000 IU DAILY 12/19 1000 AC 12/21 PO 0942 Diltiazem HCl 120 MG DAILY 12/19 1000 AC 12/21 PO 0941 Fish Oil 1,050 MG BID 12/19 1000 AC 12/21 PO 0942 Fluticasone 2 SPRAY DAILY 12/19 1000 AC 12/21 Propionate MARCO 0943 Furosemide 40 MG BID 12/19 1000 AC 12/21 PO 0942 Guaifenesin 1,200 MG BID 12/19 1000 AC 12/21 PO 0942 Heparin Sodium/ 25,000 UNIT Q24H 12/20 1600 AC 12/21 Dextrose IV 0859 Dextrose/Water 500 ML Losartan Potassium 50 MG BID 12/19 1000 AC 12/21 PO 0941 Magnesium Oxide 400 MG DAILY 12/19 1000 AC 12/21 PO 0942 Metoprolol Succinate 25 MG DAILY 12/19 1000 AC 12/21 PO 0942 Morphine Sulfate 2 MG Q6P PRN 12/19 0015 AC 12/21 IV 0806 Omeprazole 20 MG DAILY AC 12/19 0700 AC 12/21 PO 0548 Potassium Chloride 20 MEQ .STK-MED ONE 12/20 1359 DC PO 12/20 1400 Potassium Chloride 40 MEQ ONCE ONE 12/20 1315 DC 12/20 PO 12/20 1316 1408 Potassium Chloride 20 MEQ DAILY 12/19 1000 AC 12/21 PO 0942 Tramadol HCl 50 MG Q6P PRN 12/19 0015 AC 12/21 PO 0705 Trimethobenzamide HCl 200 MG 4 TIMES/DAY PRN 12/20 0452 AC IM Results Last 48 Hours of Labs: Laboratory Tests 12/21 12/21 12/20 1130 0815 2300 Chemistry Sodium (137 - 145 mmol/L) 137 Potassium (3.5 - 5.1 mmol/L) 3.8 Chloride (98 - 107 mmol/L) 100 Carbon Dioxide (22 - 30 mmol/L) 26 Anion Gap (5 - 16) 11 BUN (7 - 17 mg/dL) 14 Creatinine (0.5 - 1.0 mg/dL) 0.6 Estimated GFR (>60 ml/min) > 60 BUN/Creatinine Ratio (7 - 25 %) 23.3 Coagulation APTT (25 - 37 SEC) 57 H 76 H Hematology CBC w Diff NO MAN DIFF REQ WBC (4.8 - 10.8 /CUMM) 8.0 RBC (4.20 - 5.40 /CUMM) 3.04 L Hgb (12.0 - 16.0 G/DL) 7.8 L Hct (37 - 47 %) 23.4 L MCV (81.0 - 99.0 FL) 77.0 L MCH (27.0 - 31.0 PG) 25.5 L MCHC (33.0 - 37.0 G/DL) 33.2 RDW (11.5 - 14.5 %) 16.9 H Plt Count (130 - 400 /CUMM) 234 MPV (7.4 - 10.4 FL) 8.9 Gran % (42.2 - 75.2 %) 74.1 Lymphocytes % (20.5 - 51.1 %) 19.4 L Monocytes % (1.7 - 9.3 %) 5.5 Eosinophils % (0 - 5 %) 0.6 Basophils % (0.0 - 2.0 %) 0.4 Absolute Granulocytes (1.4 - 6.5 /CUMM) 5.9 Absolute Lymphocytes (1.2 - 3.4 /CUMM) 1.6 Absolute Monocytes (0.10 - 0.60 /CUMM) 0.4 Absolute Eosinophils (0.0 - 0.7 /CUMM) 0 Absolute Basophils (0.0 - 0.2 /CUMM) 0 12/20 12/20 1950 0848 Chemistry Sodium (137 - 145 mmol/L) 137 Potassium (3.5 - 5.1 mmol/L) 3.6 Chloride (98 - 107 mmol/L) 100 Carbon Dioxide (22 - 30 mmol/L) 25 Anion Gap (5 - 16) 13 BUN (7 - 17 mg/dL) 13 Creatinine (0.5 - 1.0 mg/dL) 0.7 Estimated GFR (>60 ml/min) > 60 BUN/Creatinine Ratio (7 - 25 %) 18.6 Coagulation APTT (25 - 37 SEC) 29 Hematology CBC w Diff NO MAN DIFF REQ NO MAN DIFF REQ WBC (4.8 - 10.8 /CUMM) 8.5 8.8 RBC (4.20 - 5.40 /CUMM) 3.13 L 3.39 L Hgb (12.0 - 16.0 G/DL) 8.0 L 8.6 L Hct (37 - 47 %) 23.9 L 26.2 L MCV (81.0 - 99.0 FL) 76.4 L 77.3 L MCH (27.0 - 31.0 PG) 25.4 L 25.3 L MCHC (33.0 - 37.0 G/DL) 33.3 32.7 L RDW (11.5 - 14.5 %) 16.5 H 17.0 H Plt Count (130 - 400 /CUMM) 247 242 MPV (7.4 - 10.4 FL) 8.7 8.8 Gran % (42.2 - 75.2 %) 68.3 75.6 H Lymphocytes % (20.5 - 51.1 %) 20.2 L 15.9 L Monocytes % (1.7 - 9.3 %) 10.7 H 8.0 Eosinophils % (0 - 5 %) 0.2 0.1 Basophils % (0.0 - 2.0 %) 0.6 0.4 Absolute Granulocytes (1.4 - 6.5 /CUMM) 5.8 6.6 H Absolute Lymphocytes (1.2 - 3.4 /CUMM) 1.7 1.4 Absolute Monocytes (0.10 - 0.60 /CUMM) 0.9 H 0.7 H Absolute Eosinophils (0.0 - 0.7 /CUMM) 0 0 Absolute Basophils (0.0 - 0.2 /CUMM) 0.1 0 12/19 12/19 2300 2020 Coagulation APTT (25 - 37 SEC) 32 Hematology CBC w Diff NO MAN DIFF REQ WBC (4.8 - 10.8 /CUMM) 9.5 RBC (4.20 - 5.40 /CUMM) 3.00 L Hgb (12.0 - 16.0 G/DL) 7.3 *L Hct (37 - 47 %) 22.2 L MCV (81.0 - 99.0 FL) 74.0 L MCH (27.0 - 31.0 PG) 24.3 L MCHC (33.0 - 37.0 G/DL) 32.9 L RDW (11.5 - 14.5 %) 16.3 H Plt Count (130 - 400 /CUMM) 244 MPV (7.4 - 10.4 FL) 8.7 Gran % (42.2 - 75.2 %) 76.3 H Lymphocytes % (20.5 - 51.1 %) 14.0 L Monocytes % (1.7 - 9.3 %) 9.4 H Eosinophils % (0 - 5 %) 0 Basophils % (0.0 - 2.0 %) 0.3 Absolute Granulocytes (1.4 - 6.5 /CUMM) 7.2 H Absolute Lymphocytes (1.2 - 3.4 /CUMM) 1.3 Absolute Monocytes (0.10 - 0.60 /CUMM) 0.9 H Absolute Eosinophils (0.0 - 0.7 /CUMM) 0 Absolute Basophils (0.0 - 0.2 /CUMM) 0 12/19 1919 Hematology CBC w Diff NO MAN DIFF REQ WBC (4.8 - 10.8 /CUMM) 8.8 RBC (4.20 - 5.40 /CUMM) 3.18 L Hgb (12.0 - 16.0 G/DL) 7.9 L Hct (37 - 47 %) 23.7 L MCV (81.0 - 99.0 FL) 74.7 L MCH (27.0 - 31.0 PG) 24.7 L MCHC (33.0 - 37.0 G/DL) 33.1 RDW (11.5 - 14.5 %) 16.3 H Plt Count (130 - 400 /CUMM) 259 MPV (7.4 - 10.4 FL) 8.9 Gran % (42.2 - 75.2 %) 73.7 Lymphocytes % (20.5 - 51.1 %) 14.6 L Monocytes % (1.7 - 9.3 %) 11.2 H Eosinophils % (0 - 5 %) 0.1 Basophils % (0.0 - 2.0 %) 0.4 Absolute Granulocytes (1.4 - 6.5 /CUMM) 6.5 Absolute Lymphocytes (1.2 - 3.4 /CUMM) 1.3 Absolute Monocytes (0.10 - 0.60 /CUMM) 1.0 H Absolute Eosinophils (0.0 - 0.7 /CUMM) 0 Absolute Basophils (0.0 - 0.2 /CUMM) 0 Assessment/Plan Assessment/Plan s/p superficial excisional debridement of large posttraumatic bulla of the left pretibial region, with evacuation of the bulla and hematoma, which could not be completed due to pain dressing changed by myself today irrigated with copious amount of sterile water unable to complete any further evacuation due to her pain may require further intervention to determine the necessity tomorrow heparin gtt current method of a/c given the possibility of further debridement will d/w
--- NOTE | 2017-12-21 14:14 | PN- Att Addend ---
Attending Addendum Attending Brief Note Mrs. Hernandez was interviewed and examined. Her EMR was reviewed. She states she is stable with controlled extremity pain. She offers no complaints. She is afebrile with stable vital signs. She is in no acute distress. Her physical exam is benign. Her lower extremity dressing post change today shows no evidence of further bleeding. Hemoglobin today is 7.8 which has decreased from 8.6 after transfusion. We are continuing her present management and are fully anticoagulating her with heparin. We are continuing her maintenance medications. Should she need a further procedure on her leg. Advised that she should not have endotracheal anesthesia per her telemetry technician.
[2017-12-21 15:09] VITALS: BP 100/60
[2017-12-21 16:00] VITALS: BP 124/68
[2017-12-21 18:10] LABS: ABSOLUTE BASOPHIL COUNT 0 /CUMM (0.0-0.2); ABSOLUTE EOSINOPHIL COUNT 0.1 /CUMM (0.0-0.7); ABSOLUTE GRANULOCYTE CT 6.5 /CUMM (1.4-6.5); ABSOLUTE LYMPH COUNT 1.5 /CUMM (1.2-3.4); ABSOLUTE MONOCYTE COUNT 0.6 /CUMM (0.10-0.60); BASOPHIL % 0.5 % (0.0-2.0); EOSINOPHIL % 1.1 % (0-5); GRANULOCYTE % 74.6 % (42.2-75.2); HEMATOCRIT 23.5 % (37-47); MEAN CORPUSCULAR HGB CONC 32.4 G/DL (33.0-37.0); MEAN CORPUSCULAR VOLUME 77.3 FL (81.0-99.0); MEAN PLATELET VOLUME 8.6 FL (7.4-10.4); PLATELET COUNT 252 /CUMM (130-400); RBC DISTRIBUTION WIDTH 17.3 % (11.5-14.5); RED BLOOD CELL CT 3.04 /CUMM (4.20-5.40); WHITE BLOOD CELL COUNT 8.8 /CUMM (4.8-10.8)
[2017-12-21 21:34] LABS: PTT 36 SEC (25-37)
[2017-12-21 22:47] VITALS: BP 130/62
[2017-12-22 01:44] LABS: ABSOLUTE BASOPHIL COUNT 0 /CUMM (0.0-0.2); ABSOLUTE EOSINOPHIL COUNT 0.1 /CUMM (0.0-0.7); ABSOLUTE GRANULOCYTE CT 4.3 /CUMM (1.4-6.5); ABSOLUTE LYMPH COUNT 1.6 /CUMM (1.2-3.4); ABSOLUTE MONOCYTE COUNT 0.6 /CUMM (0.10-0.60); BASOPHIL % 0.6 % (0.0-2.0); EOSINOPHIL % 1.8 % (0-5); HEMATOCRIT 25.9 % (37-47); MEAN CORPUSCULAR HGB 25.7 PG (27.0-31.0); MEAN CORPUSCULAR HGB CONC 32.7 G/DL (33.0-37.0); MEAN CORPUSCULAR VOLUME 78.6 FL (81.0-99.0); MEAN PLATELET VOLUME 7.9 FL (7.4-10.4); PLATELET COUNT 236 /CUMM (130-400); RBC DISTRIBUTION WIDTH 17.6 % (11.5-14.5); RED BLOOD CELL CT 3.29 /CUMM (4.20-5.40); WHITE BLOOD CELL COUNT 6.7 /CUMM (4.8-10.8)
[2017-12-22 02:02] LABS: PTT 28 SEC (25-37)
[2017-12-22 06:20] VITALS: BP 122/68
--- NOTE | 2017-12-22 07:07 | PN- Housestaff ---
Subjective Follow-up For: Left leg hematome/ cellulitis Anemia Subjective: Patient was seen and examined at bedside, she reports pain in her left lower extremity 12/03, denies any fever, chills, nausea or vomiting. Left lower extremity wrapped in clean surgical dressing, she was nothing by mouth overnight in anticipation of surgery today. Was placed on heparin drip over the weekend for anticoagulation, it was stopped this morning as per Dr. Jewell recommendation Review of Systems Constitutional: Denies: no symptoms. Cardiovascular: Denies: no symptoms. Respiratory: Denies: no symptoms. Gastrointestinal: Denies: no symptoms. Genitourinary: Denies: no symptoms. Skin: Reports: see HPI, lesions. Objective Last 24 Hrs of Vital Signs/I&O Vital Signs Date Time Temp Pulse Resp B/P B/P Pulse O2 O2 Flow FiO2 Mean Ox Delivery Rate 12/22 0620 98.1 77 20 122/68 96 Nasal Cannula 12/22 0000 96 Nasal 1.0L Cannula 12/21 2247 98.3 70 20 130/62 96 Nasal 1.0L Cannula 12/21 2230 92 126/58 12/21 1810 93 Room Air 12/21 1600 94 Nasal 1.0L Cannula 12/21 1600 98.2 88 16 124/68 92 Room Air 12/21 1509 98.5 78 20 100/60 91 12/21 1050 94 Room Air 12/21 0942 98.2 82 16 122/66 12/21 0941 98.2 80 16 122/66 Intake & Output 12/22 1600 12/22 0800 12/22 0000 Intake Total 640 Output Total 600 600 Balance 40 -600 Intake, IV 400 Intake, Oral 240 Output, Urine 600 600 Physical Exam General Appearance: Alert, Oriented X3, Cooperative, No Acute Distress HEENT: Atraumatic, PERRLA, EOMI, Mucous Membr. 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 She presented to [facility] on 12/18 with complaint of increasing left leg bump along with swelling and pain. Given her history of being on Xarelto increases possibility for hematoma collection RLE large posttraumatic bulla of the left pretibial region s/p I&D: -I&D was made at bedside on 12/19 and considerable amount of pus and hematoma was evacuated. -on 12/22/17: Excision skin and subcutaneous tissues tissues of leg (25 cm)/ Evacuation of left leg hematoma -Wound care consult was placed, will follow-up on the recommendation (most likely the patient will need follow-up for 6 months as outpatient as per surgery recommendation) -Monitor fever and WBC curve -Continue IV Unasyn -Elevate leg -Blood culture were negative -Goal Hemoglobin is above 8 Given her cardiac history. Acute blood loss anemia: -Currently stable H&H S/P 2 units of PRBCs -We will check her CBCs patient may need transfusion if it remained below 8. -We will keep an eye on her left leg wound if it's losing blood can hold IV drip . History of A. fib on XERALTO: We will restart Xarelto tomorrow as per surgery recommendation Patient is full code DVT prophylaxis with IV heparin Regular diet Problem List: 1. Hematoma 2. Cellulitis 3. Anemia Pain Ratin Pain Location: LLE Pain Goal: Pain 4 or less Pain Plan: pathway Tomorrow's Labs & Rationales: cbc bep DVT/Prophylaxis: mechanical, pharmacological
[2017-12-22 08:47] LABS: ABSOLUTE BASOPHIL COUNT 0 /CUMM (0.0-0.2); ABSOLUTE EOSINOPHIL COUNT 0.2 /CUMM (0.0-0.7); ABSOLUTE GRANULOCYTE CT 5.5 /CUMM (1.4-6.5); ABSOLUTE LYMPH COUNT 1.7 /CUMM (1.2-3.4); ABSOLUTE MONOCYTE COUNT 0.6 /CUMM (0.10-0.60); BASOPHIL % 0.4 % (0.0-2.0); EOSINOPHIL % 2.4 % (0-5); GRANULOCYTE % 68.1 % (42.2-75.2); MEAN CORPUSCULAR HGB CONC 33.1 G/DL (33.0-37.0); MEAN CORPUSCULAR VOLUME 78.6 FL (81.0-99.0); MEAN PLATELET VOLUME 8.6 FL (7.4-10.4); PLATELET COUNT 234 /CUMM (130-400); RBC DISTRIBUTION WIDTH 17.9 % (11.5-14.5); RED BLOOD CELL CT 3.44 /CUMM (4.20-5.40)
[2017-12-22 09:01] LABS: PTT 41 SEC (25-37)
--- NOTE | 2017-12-22 09:24 | PN- General Surgery ---
Surgical Brief Attending Note Brief Attending Note: Patient scheduled for wound debridement today at 12:30 under sedation. Heparin off. npo
--- NOTE | 2017-12-22 10:49 | PN- Att Addend ---
Attending Addendum Attending Brief Note Events over the weekend noted is still having some pain getting pain medication patient also got a transfusion spoke to Dr. Jewell, he will take her to the operating room again on better cleaning of the hematoma get out some more clots hopefully this will be enough, continue other treatments and reassessed anticoagulation. Intake & Output 12/22 1600 12/22 0400 12/21 1600 12/21 0400 12/20 1600 12/20 0400 Intake Total 640 4023 815 2768 178 Output Total 600 600 700 651 650 550 Balance 40 -600 612 -447 580 -372 Intake, Blood 350 Product Intake, IV 400 732 104 300 78 Intake, Oral 240 580 100 580 100 Number 2 Bowel Movements Output, Stool 1 Output, Urine 600 600 700 650 650 550 Current Medications Sig/Heena Start time Last Medication Dose Route Stop Time Status Admin Acetaminophen 650 MG Q8P PRN 12/19 0015 AC 12/20 PO 0921 Albuterol Sulfate 3 ML BID 12/20 1450 AC 12/22 INH 0903 Ampicillin Sodium/ 3,000 MG Q6 12/19 0600 AC 12/22 Sulbactam Sodium IV 0617 Sodium Chloride 100 ML Aspirin Buffered 81 MG DAILY 12/19 1000 AC 12/21 PO 0942 Atorvastatin Calcium 20 MG QPM 12/19 2200 AC 12/21 PO 2230 Budesonide/ 2 PUF BID 12/19 1000 AC 12/22 Formoterol Fumarate INH 1003 Cholecalciferol 1,000 IU DAILY 12/19 1000 AC 12/22 PO 1002 Diltiazem HCl 120 MG DAILY 12/19 1000 AC 12/21 PO 0941 Fish Oil 1,050 MG BID 12/19 1000 AC 12/22 PO 1007 Fluticasone 2 SPRAY DAILY 12/19 1000 AC 12/22 Propionate MARCO 1003 Furosemide 40 MG BID 12/19 1000 AC 12/22 PO 1002 Guaifenesin 1,200 MG BID 12/19 1000 AC 12/22 PO 1002 Heparin Sodium 3,300 UNIT ONCE ONE 12/21 1445 DC 12/21 (Porcine) IV 12/21 1446 1450 Heparin Sodium 5,000 UNIT .STK-MED ONE 12/21 1433 DC (Porcine) IV 12/21 1434 Heparin Sodium/ 25,000 UNIT Q24H 12/20 1600 DC 12/21 Dextrose IV 1452 Dextrose/Water 500 ML Losartan Potassium 50 MG BID 12/19 1000 AC 12/21 PO 2230 Magnesium Oxide 400 MG DAILY 12/19 1000 AC 12/22 PO 1002 Metoprolol Succinate 25 MG DAILY 12/19 1000 AC 12/22 PO 1002 Morphine Sulfate 2 MG ONCE ONE 12/22 1015 DC 12/22 IV 12/22 1016 1011 Morphine Sulfate 2 MG Q6P PRN 12/19 0015 DC 12/21 IV 1542 Omeprazole 20 MG DAILY AC 12/19 0700 AC 12/22 PO 0617 Oxycodone/ 1 TAB Q6P PRN 12/22 0245 AC 12/22 Acetaminophen PO 0245 Oxycodone/ 1 TAB ONCE ONE 12/21 2230 DC 12/21 Acetaminophen PO 12/21 2231 2236 Oxycodone/ 1 TAB ONCE ONE 12/21 1745 DC 12/21 Acetaminophen PO 12/21 1746 1736 Potassium Chloride 20 MEQ DAILY 12/19 1000 AC 12/22 PO 1001 Tramadol HCl 50 MG Q6P PRN 12/19 0015 AC 12/22 PO 0624 Trimethobenzamide HCl 200 MG 4 TIMES/DAY PRN 12/20 0452 [facility] Laboratory Tests 12/22/17 0800: Anion Gap 14, Estimated GFR > 60, BUN/Creatinine Ratio 20.0, APTT 41 H, CBC w Diff NO MAN DIFF REQ, RBC 3.44 L, MCV 78.6 L, MCH 26.0 L, MCHC 33.1, RDW 17.9 H, MPV 8.6, Gran % 68.1, Lymphocytes % 21.5, Monocytes % 7.6, Eosinophils % 2.4 , Basophils % 0.4, Absolute Granulocytes 5.5, Absolute Lymphocytes 1.7, Absolute Monocytes 0.6, Absolute Eosinophils 0.2, Absolute Basophils 0 12/22/17 0130: APTT 28, CBC w Diff NO MAN DIFF REQ, RBC 3.29 L, MCV 78.6 L, MCH 25.7 L, MCHC 32.7 L, RDW 17.6 H, MPV 7.9, Gran % 64.0, Lymphocytes % 24.5, Monocytes % 9.1, Eosinophils % 1.8, Basophils % 0.6, Absolute Granulocytes 4.3, Absolute Lymphocytes 1.6, Absolute Monocytes 0.6, Absolute Eosinophils 0.1, Absolute Basophils 0 12/21/17 2100: APTT 36 12/21/17 1740: CBC w Diff NO MAN DIFF REQ, RBC 3.04 L, MCV 77.3 L, MCH 25.0 L, MCHC 32.4 L, RDW 17.3 H, MPV 8.6, Gran % 74.6, Lymphocytes % 16.8 L, Monocytes % 7.0, Eosinophils % 1.1, Basophils % 0.5, Absolute Granulocytes 6.5, Absolute Lymphocytes 1.5, Absolute Monocytes 0.6, Absolute Eosinophils 0.1, Absolute Basophils 0 12/21/17 1130: APTT 57 H 12/21/17 0815: Anion Gap 11, Estimated GFR > 60, BUN/Creatinine Ratio 23.3, CBC w Diff NO MAN DIFF REQ, RBC 3.04 L, MCV 77.0 L, MCH 25.5 L, MCHC 33.2, RDW 16.9 H, MPV 8.9 , Gran % 74.1, Lymphocytes % 19.4 L, Monocytes % 5.5, Eosinophils % 0.6, Basophils % 0.4, Absolute Granulocytes 5.9, Absolute Lymphocytes 1.6, Absolute Monocytes 0.4, Absolute Eosinophils 0, Absolute Basophils 0 12/20/17 2300: APTT 76 H 12/20/17 1950: CBC w Diff NO MAN DIFF REQ, RBC 3.13 L, MCV 76.4 L, MCH 25.4 L, MCHC 33.3, RDW 16.5 H, MPV 8.7, Gran % 68.3, Lymphocytes % 20.2 L, Monocytes % 10.7 H, Eosinophils % 0.2, Basophils % 0.6, Absolute Granulocytes 5.8, Absolute Lymphocytes 1.7, Absolute Monocytes 0.9 H, Absolute Eosinophils 0, Absolute Basophils 0.1 12/20/17 0848: Anion Gap 13, Estimated GFR > 60, BUN/Creatinine Ratio 18.6, APTT 29, CBC w Diff NO MAN DIFF REQ, RBC 3.39 L, MCV 77.3 L, MCH 25.3 L, MCHC 32.7 L, RDW 17.0 H, MPV 8.8, Gran % 75.6 H, Lymphocytes % 15.9 L, Monocytes % 8.0, Eosinophils % 0.1, Basophils % 0.4, Absolute Granulocytes 6.6 H, Absolute Lymphocytes 1.4, Absolute Monocytes 0.7 H, Absolute Eosinophils 0, Absolute Basophils 0 12/19/17 2300: CBC w Diff NO MAN DIFF REQ, RBC 3.00 L, MCV 74.0 L, MCH 24.3 L, MCHC 32.9 L, RDW 16.3 H, MPV 8.7, Gran % 76.3 H, Lymphocytes % 14.0 L, Monocytes % 9.4 H, Eosinophils % 0, Basophils % 0.3, Absolute Granulocytes 7.2 H, Absolute Lymphocytes 1.3, Absolute Monocytes 0.9 H, Absolute Eosinophils 0, Absolute Basophils 0 12/19/17 2020: APTT 32 12/19/17 1920: CBC w Diff NO MAN DIFF REQ, RBC 3.18 L, MCV 74.7 L, MCH 24.7 L, MCHC 33.1, RDW 16.3 H, MPV 8.9, Gran % 73.7, Lymphocytes % 14.6 L, Monocytes % 11.2 H, Eosinophils % 0.1, Basophils % 0.4, Absolute Granulocytes 6.5, Absolute Lymphocytes 1.3, Absolute Monocytes 1.0 H, Absolute Eosinophils 0, Absolute Basophils 0 Vital Signs Date Time Temp Pulse Resp B/P B/P Pulse O2 O2 Flow FiO2 Mean Ox Delivery Rate 12/22 1003 130/62 12/22 1002 130/62 12/22 0909 98 Nasal 1.0L Cannula 12/22 0800 Nasal 1.0L Cannula 12/22 0620 98.1 77 20 122/68 96 Nasal Cannula 12/22 0000 96 Nasal 1.0L Cannula 12/21 2247 98.3 70 20 130/62 96 Nasal 1.0L Cannula 12/21 2230 92 126/58 12/21 1810 93 Room Air 12/21 1600 94 Nasal 1.0L Cannula 12/21 1600 98.2 88 16 124/68 92 Room Air 12/21 1509 98.5 78 20 100/60 91 12/21 1050 94 Room Air
--- NOTE | 2017-12-22 13:39 | Operative Report ---
Operative/Inv Procedure Report Surgery Date: 12/22/17 Name of Procedure: Excision skin and subcutaneous tissues tissues of leg (25 cm) Evacuation of left leg hematoma Pre-Operative Diagnosis: Left leg hematoma Post-Operative Diagnosis: Same Estimated Blood Loss: scant Surgeon/Hi Lift Operator: Anthony Jewell M.D. Anesthesia: local monitored anesthesi Specimens: Skin and subcutaneous tissues tissues Operative/Procedure Note Note: After consent she is brought preoperatively supine. Sedation was obtained and her left leg was prepped and draped. The area around the open wound was infiltrated cocktail local anesthesia. There was thick eschar consistent with necrotic skin. The area was circumferentially excised sharply and removed. There was significant underlying leg hematoma which was bluntly evacuated passed off the field. The remaining areas of retained hematoma were evacuated using a curet. The wound was irrigated with saline. Xeroform dressing was then applied. Patient tolerated procedure well
[2017-12-22 15:21] VITALS: BP 128/70
--- NOTE | 2017-12-22 15:51 | PN- Student ---
Jeremi Meek 12/22/17 1550: Subjective Subjective: Pt states she has 10/10 pain in LLE. She says this pain has increased since her procedure and is worse when it is not being elevated. Pt denies ambulation. Nurse administered tramadol prior to my arrival. She has not eaten, but is tolerating liquids and claims she has an appetitie. No flatus/No BM. + urination. PT denies: H/A, vision changes, SOB, chest pain, NVD, paresthesias or syncope. Objective Objective: GENERAL: PT sitting upright on commode upon entering the room. NAD. A+Ox4. Pleasant affect. RESP: Good respiratory effort, CTAB. CARDIO: RRR, no MRG, S1/S2 audible. ABD: Soft, NTND, no audible BS MUSC: large bandage in place on LLE. cap refill < 2 sec. Distal pulse non plapable 2/2 dressing. NEURO: Sensation intact throughout. Results Results: Laboratory Tests 12/22/17 0800: Anion Gap 14, Estimated GFR > 60, BUN/Creatinine Ratio 20.0, APTT 41 H, CBC w Diff NO MAN DIFF REQ, RBC 3.44 L, MCV 78.6 L, MCH 26.0 L, MCHC 33.1, RDW 17.9 H, MPV 8.6, Gran % 68.1, Lymphocytes % 21.5, Monocytes % 7.6, Eosinophils % 2.4 , Basophils % 0.4, Absolute Granulocytes 5.5, Absolute Lymphocytes 1.7, Absolute Monocytes 0.6, Absolute Eosinophils 0.2, Absolute Basophils 0 12/22/17 0130: APTT 28, CBC w Diff NO MAN DIFF REQ, RBC 3.29 L, MCV 78.6 L, MCH 25.7 L, MCHC 32.7 L, RDW 17.6 H, MPV 7.9, Gran % 64.0, Lymphocytes % 24.5, Monocytes % 9.1, Eosinophils % 1.8, Basophils % 0.6, Absolute Granulocytes 4.3, Absolute Lymphocytes 1.6, Absolute Monocytes 0.6, Absolute Eosinophils 0.1, Absolute Basophils 0 12/21/17 2100: APTT 36 12/21/17 1740: CBC w Diff NO MAN DIFF REQ, RBC 3.04 L, MCV 77.3 L, MCH 25.0 L, MCHC 32.4 L, RDW 17.3 H, MPV 8.6, Gran % 74.6, Lymphocytes % 16.8 L, Monocytes % 7.0, Eosinophils % 1.1, Basophils % 0.5, Absolute Granulocytes 6.5, Absolute Lymphocytes 1.5, Absolute Monocytes 0.6, Absolute Eosinophils 0.1, Absolute Basophils 0 12/21/17 1130: APTT 57 H 12/21/17 0815: Anion Gap 11, Estimated GFR > 60, BUN/Creatinine Ratio 23.3, CBC w Diff NO MAN DIFF REQ, RBC 3.04 L, MCV 77.0 L, MCH 25.5 L, MCHC 33.2, RDW 16.9 H, MPV 8.9 , Gran % 74.1, Lymphocytes % 19.4 L, Monocytes % 5.5, Eosinophils % 0.6, Basophils % 0.4, Absolute Granulocytes 5.9, Absolute Lymphocytes 1.6, Absolute Monocytes 0.4, Absolute Eosinophils 0, Absolute Basophils 0 12/20/17 2300: APTT 76 H 12/20/17 1950: CBC w Diff NO MAN DIFF REQ, RBC 3.13 L, MCV 76.4 L, MCH 25.4 L, MCHC 33.3, RDW 16.5 H, MPV 8.7, Gran % 68.3, Lymphocytes % 20.2 L, Monocytes % 10.7 H, Eosinophils % 0.2, Basophils % 0.6, Absolute Granulocytes 5.8, Absolute Lymphocytes 1.7, Absolute Monocytes 0.9 H, Absolute Eosinophils 0, Absolute Basophils 0.1 12/20/17 0848: Anion Gap 13, Estimated GFR > 60, BUN/Creatinine Ratio 18.6, APTT 29, CBC w Diff NO MAN DIFF REQ, RBC 3.39 L, MCV 77.3 L, MCH 25.3 L, MCHC 32.7 L, RDW 17.0 H, MPV 8.8, Gran % 75.6 H, Lymphocytes % 15.9 L, Monocytes % 8.0, Eosinophils % 0.1, Basophils % 0.4, Absolute Granulocytes 6.6 H, Absolute Lymphocytes 1.4, Absolute Monocytes 0.7 H, Absolute Eosinophils 0, Absolute Basophils 0 12/19/17 2300: CBC w Diff NO MAN DIFF REQ, RBC 3.00 L, MCV 74.0 L, MCH 24.3 L, MCHC 32.9 L, RDW 16.3 H, MPV 8.7, Gran % 76.3 H, Lymphocytes % 14.0 L, Monocytes % 9.4 H, Eosinophils % 0, Basophils % 0.3, Absolute Granulocytes 7.2 H, Absolute Lymphocytes 1.3, Absolute Monocytes 0.9 H, Absolute Eosinophils 0, Absolute Basophils 0 12/19/172019: APTT 32 12/19/170: CBC w Diff NO MAN DIFF REQ, RBC 3.18 L, MCV 74.7 L, MCH 24.7 L, MCHC 33.1, RDW 16.3 H, MPV 8.9, Gran % 73.7, Lymphocytes % 14.6 L, Monocytes % 11.2 H, Eosinophils % 0.1, Basophils % 0.4, Absolute Granulocytes 6.5, Absolute Lymphocytes 1.3, Absolute Monocytes 1.0 H, Absolute Eosinophils 0, Absolute Basophils 0 Assessment/Plan Assessment: Lovely is an 87yo F POD-0 s/p LLE wound debridement. Pt appears to be recovering well from her procedure but is complaining of severe pain at wound site. She does not have any questions or concerns at this time. Plan: Hold anticoagulation per Dr. Jewell. PT consult in am. Wound dressing change tomorrow. Regular diet as tolerated. Monitor pain and increase meds PRN .- Increase to percocet if tramadol is uneffective. Liyah Salgado 12/22/171907: Subjective Subjective: some pain, helped with pain med she just received Objective Objective: EXT: LLE w CDI dressing, +toe movement, +toe sensation Assessment/Plan Plan: May restart anticoag tomorrow. PT consult- wbat. Dressing change tomorrow, wound care consult placed. prn pain meds. medical care per primary team
[2017-12-22 19:08] LABS: ABSOLUTE BASOPHIL COUNT 0 /CUMM (0.0-0.2); ABSOLUTE EOSINOPHIL COUNT 0.1 /CUMM (0.0-0.7); ABSOLUTE GRANULOCYTE CT 7.2 /CUMM (1.4-6.5); ABSOLUTE LYMPH COUNT 1.2 /CUMM (1.2-3.4); ABSOLUTE MONOCYTE COUNT 0.6 /CUMM (0.10-0.60); BASOPHIL % 0.3 % (0.0-2.0); EOSINOPHIL % 1.6 % (0-5); GRANULOCYTE % 78.1 % (42.2-75.2); HEMATOCRIT 25.9 % (37-47); MEAN CORPUSCULAR HGB 26.2 PG (27.0-31.0); MEAN CORPUSCULAR HGB CONC 33.2 G/DL (33.0-37.0); MEAN CORPUSCULAR VOLUME 78.9 FL (81.0-99.0); MEAN PLATELET VOLUME 8.6 FL (7.4-10.4); PLATELET COUNT 247 /CUMM (130-400); RBC DISTRIBUTION WIDTH 17.8 % (11.5-14.5); RED BLOOD CELL CT 3.28 /CUMM (4.20-5.40); WHITE BLOOD CELL COUNT 9.2 /CUMM (4.8-10.8)
[2017-12-22 21:13] VITALS: BP 116/70
[2017-12-23 06:45] VITALS: BP 146/68
--- NOTE | 2017-12-23 09:46 | PN- Att Addend ---
Attending Addendum Attending Brief Note Patient laying in bed but the pain has improved after her surgical procedure yesterday. Vital signs are stable patient has no fever, the leg is covered will have wound Center evaluate the open area has she will need to be followed closely to follow healing. Oral anticoagulation was restarted Intake & Output 12/23 1600 12/23 0400 12/22 1600 12/22 0400 12/21 0400 Intake Total 460 2832 175 8250 204 Output Total 500 600 600 700 651 Balance -40 1030 40 -600 612 -447 Intake, IV 220 130 400 732 104 Intake, Oral 240 900 240 580 100 Number 2 Bowel Movements Output, Stool 1 Output, Urine 500 600 600 700 650 Patient 165 lb Weight Current Medications Sig/Heena Start time Last Medication Dose Route Stop Time Status Admin Acetaminophen 650 MG Q8P PRN 12/19 0015 AC 12/20 PO 0921 Albuterol Sulfate 3 ML BID 12/20 1450 AC 12/22 INH 1900 Ampicillin Sodium/ 3,000 MG Q6 12/19 0600 AC 12/23 Sulbactam Sodium IV 0539 Sodium Chloride 100 ML Aspirin Buffered 81 MG DAILY 12/19 1000 AC 12/23 PO 0756 Atorvastatin Calcium 20 MG QPM 12/19 2200 AC 12/22 PO 2113 Budesonide/ 2 PUF BID 12/19 1000 AC 12/23 Formoterol Fumarate INH 0759 Cholecalciferol 1,000 IU DAILY 12/19 1000 AC 12/23 PO 0759 Dextrose/Lactated 1,000 ML Q10H 12/22 1115 DC Ringer's IV Diltiazem HCl 120 MG DAILY 12/19 1000 AC 12/23 PO 0756 Fentanyl Citrate 100 MCG .STK-MED ONE 12/22 1219 DC IM 12/22 1220 Fish Oil 1,050 MG BID 12/19 1000 AC 12/23 PO 0755 Fluticasone 2 SPRAY DAILY 12/19 1000 AC 12/23 Propionate MARCO 0759 Furosemide 40 MG BID 12/19 1000 AC 12/23 PO 0756 Guaifenesin 1,200 MG BID 12/19 1000 AC 12/23 PO 0755 Hydromorphone HCl 2 MG .STK-MED ONE 12/22 1348 DC IM 12/22 1349 Losartan Potassium 50 MG BID 12/19 1000 AC 12/23 PO 0755 Magnesium Oxide 400 MG DAILY 12/19 1000 AC 12/23 PO 0756 Metoprolol Succinate 25 MG DAILY 12/19 1000 AC 12/23 PO 0756 Midazolam HCl 2 MG .STK-MED ONE 12/22 1230 DC IM 12/22 1231 Morphine Sulfate 2 MG ONCE ONE 12/22 1015 DC 12/22 IV 12/22 1016 1011 Omeprazole 20 MG DAILY AC 12/19 0700 AC 12/23 PO 0539 Oxycodone/ 1 TAB Q6P PRN 12/22 0245 AC 12/23 Acetaminophen PO 0732 Potassium Chloride 20 MEQ DAILY 12/19 1000 AC 12/23 PO 0756 Rivaroxaban 15 MG AT BEDTIME 12/23 2200 AC PO Tramadol HCl 50 MG Q6P PRN 12/19 0015 AC 12/23 PO 0542 Trimethobenzamide HCl 200 MG 4 TIMES/DAY PRN 12/20 0452 AC IM Laboratory Tests 12/23/17 0825: Sodium Pending, Potassium Pending, Chloride Pending, Carbon Dioxide Pending, Anion Gap Pending, BUN Pending, Creatinine Pending, BUN/Creatinine Ratio Pending , CBC w Diff Pending, WBC Pending, RBC Pending, Hgb Pending, Hct Pending, MCV Pending, MCH Pending, MCHC Pending, RDW Pending, Plt Count Pending, MPV Pending 12/22/17 1805: CBC w Diff NO MAN DIFF REQ, RBC 3.28 L, MCV 78.9 L, MCH 26.2 L, MCHC 33.2, RDW 17.8 H, MPV 8.6, Gran % 78.1 H, Lymphocytes % 13.1 L, Monocytes % 6.9, Eosinophils % 1.6, Basophils % 0.3, Absolute Granulocytes 7.2 H, Absolute Lymphocytes 1.2, Absolute Monocytes 0.6, Absolute Eosinophils 0.1, Absolute Basophils 0 12/22/17 0800: Anion Gap 14, Estimated GFR > 60, BUN/Creatinine Ratio 20.0, APTT 41 H, CBC w Diff NO MAN DIFF REQ, RBC 3.44 L, MCV 78.6 L, MCH 26.0 L, MCHC 33.1, RDW 17.9 H, MPV 8.6, Gran % 68.1, Lymphocytes % 21.5, Monocytes % 7.6, Eosinophils % 2.4 , Basophils % 0.4, Absolute Granulocytes 5.5, Absolute Lymphocytes 1.7, Absolute Monocytes 0.6, Absolute Eosinophils 0.2, Absolute Basophils 0 12/22/17 0130: APTT 28, CBC w Diff NO MAN DIFF REQ, RBC 3.29 L, MCV 78.6 L, MCH 25.7 L, MCHC 32.7 L, RDW 17.6 H, MPV 7.9, Gran % 64.0, Lymphocytes % 24.5, Monocytes % 9.1, Eosinophils % 1.8, Basophils % 0.6, Absolute Granulocytes 4.3, Absolute Lymphocytes 1.6, Absolute Monocytes 0.6, Absolute Eosinophils 0.1, Absolute Basophils 0 12/21/17 2100: APTT 36 12/21/17 1740: CBC w Diff NO MAN DIFF REQ, RBC 3.04 L, MCV 77.3 L, MCH 25.0 L, MCHC 32.4 L, RDW 17.3 H, MPV 8.6, Gran % 74.6, Lymphocytes % 16.8 L, Monocytes % 7.0, Eosinophils % 1.1, Basophils % 0.5, Absolute Granulocytes 6.5, Absolute Lymphocytes 1.5, Absolute Monocytes 0.6, Absolute Eosinophils 0.1, Absolute Basophils 0 12/21/17 1130: APTT 57 H 12/21/17 0815: Anion Gap 11, Estimated GFR > 60, BUN/Creatinine Ratio 23.3, CBC w Diff NO MAN DIFF REQ, RBC 3.04 L, MCV 77.0 L, MCH 25.5 L, MCHC 33.2, RDW 16.9 H, MPV 8.9 , Gran % 74.1, Lymphocytes % 19.4 L, Monocytes % 5.5, Eosinophils % 0.6, Basophils % 0.4, Absolute Granulocytes 5.9, Absolute Lymphocytes 1.6, Absolute Monocytes 0.4, Absolute Eosinophils 0, Absolute Basophils 0 12/20/17 2300: APTT 76 H 12/20/17 1950: CBC w Diff NO MAN DIFF REQ, RBC 3.13 L, MCV 76.4 L, MCH 25.4 L, MCHC 33.3, RDW 16.5 H, MPV 8.7, Gran % 68.3, Lymphocytes % 20.2 L, Monocytes % 10.7 H, Eosinophils % 0.2, Basophils % 0.6, Absolute Granulocytes 5.8, Absolute Lymphocytes 1.7, Absolute Monocytes 0.9 H, Absolute Eosinophils 0, Absolute Basophils 0.1 Vital Signs Date Time Temp Pulse Resp B/P B/P Pulse O2 O2 Flow FiO2 Mean Ox Delivery Rate 12/23 0800 Nasal 1.0L Cannula 12/23 0756 82 146/68 12/23 0755 82 146/68 12/23 0645 97.2 82 22 146/68 98 Nasal 1.0L Cannula 12/23 0000 97 Nasal 1.0L Cannula 12/22 2355 98.2 80 18 98 Nasal 1.0L Cannula 12/22 2113 80 116/70 12/22 2113 80 116/70 12/22 1900 97 Nasal 2.0L Cannula 12/22 1556 90 Nasal 2.0L Cannula 12/22 1521 98.6 82 15 128/70 90 12/22 1003 130/62 12/22 1002 130/62
[2017-12-23 10:17] LABS: ABSOLUTE BASOPHIL COUNT 0 /CUMM (0.0-0.2); ABSOLUTE EOSINOPHIL COUNT 0.3 /CUMM (0.0-0.7); ABSOLUTE LYMPH COUNT 1.4 /CUMM (1.2-3.4); ABSOLUTE MONOCYTE COUNT 0.5 /CUMM (0.10-0.60); BASOPHIL % 0.3 % (0.0-2.0); EOSINOPHIL % 3.1 % (0-5); GRANULOCYTE % 73.4 % (42.2-75.2); MEAN CORPUSCULAR HGB 25.8 PG (27.0-31.0); MEAN CORPUSCULAR HGB CONC 32.9 G/DL (33.0-37.0); MEAN CORPUSCULAR VOLUME 78.4 FL (81.0-99.0); MEAN PLATELET VOLUME 8.5 FL (7.4-10.4); PLATELET COUNT 260 /CUMM (130-400); RBC DISTRIBUTION WIDTH 17.6 % (11.5-14.5); RED BLOOD CELL CT 3.32 /CUMM (4.20-5.40); WHITE BLOOD CELL COUNT 8.1 /CUMM (4.8-10.8)
--- NOTE | 2017-12-23 11:09 | PN- Housestaff ---
Subjective Follow-up For: left lower extremity cellulitis / hematoma Subjective: no complaints Review of Systems Constitutional: Reports: see HPI. Objective Last 24 Hrs of Vital Signs/I&O Vital Signs Date Time Temp Pulse Resp B/P B/P Pulse O2 O2 Flow FiO2 Mean Ox Delivery Rate 12/23 1427 98.0 93 22 140/58 93 Nasal 1.0L Cannula 12/23 1211 98 Nasal 1.0L Cannula 12/23 0800 Nasal 1.0L Cannula 12/23 0756 82 146/68 12/23 0755 82 146/68 12/23 0645 97.2 82 22 146/68 98 Nasal 1.0L Cannula 12/23 0000 97 Nasal 1.0L Cannula 12/22 2355 98.2 80 18 98 Nasal 1.0L Cannula 12/22 2113 80 116/70 12/22 2113 80 116/70 12/22 1900 97 Nasal 2.0L Cannula 12/22 1556 90 Nasal 2.0L Cannula 12/22 1521 98.6 82 15 128/70 90 Intake & Output 12/23 1600 12/23 0800 12/23 0000 Intake Total 953 537 4048 Output Total 500 500 Balance 250 -40 1030 Intake, IV 200 220 130 Intake, Oral 550 240 900 Number 1 Bowel Movements Output, Urine 500 500 Patient 74.843 kg Weight Physical Exam General Appearance: Alert, Oriented X3, Cooperative, No Acute Distress Cardiovascular: Regular Rate, Normal S1, Normal S2, No Murmurs Lungs: Clear to Auscultation, Normal Air Movement Abdomen: Normal Bowel Sounds, Soft, No Tenderness, No Masses Extremities: No Clubbing, No Cyanosis, No Edema, Normal Pulses, LLE post operative dressing not taken down today Current Medications: Current Medications Sig/Heena Start time Last Medication Dose Route Stop Time Status Admin Acetaminophen 650 MG Q8P PRN 12/19 0015 AC 12/20 PO 0921 Albuterol Sulfate 3 ML BID 12/20 1450 AC 12/23 INH 1208 Ampicillin Sodium/ 3,000 MG Q6 12/19 0600 AC 12/23 Sulbactam Sodium IV 1146 Sodium Chloride 100 ML Aspirin Buffered 81 MG DAILY 12/19 1000 AC 12/23 PO 0756 Atorvastatin Calcium 20 MG QPM 12/19 2200 AC 12/22 PO 2113 Budesonide/ 2 PUF BID 12/19 1000 AC 12/23 Formoterol Fumarate INH 0759 Cholecalciferol 1,000 IU DAILY 12/19 1000 AC 12/23 PO 0759 Diltiazem HCl 120 MG DAILY 12/19 1000 AC 12/23 PO 0756 Fish Oil 1,050 MG BID 12/19 1000 AC 12/23 PO 0755 Fluticasone 2 SPRAY DAILY 12/19 1000 AC 12/23 Propionate MARCO 0759 Furosemide 40 MG BID 12/19 1000 AC 12/23 PO 0756 Guaifenesin 1,200 MG BID 12/19 1000 AC 12/23 PO 0755 Losartan Potassium 50 MG BID 12/19 1000 AC 12/23 PO 0755 Magnesium Oxide 400 MG DAILY 12/19 1000 AC 12/23 PO 0756 Metoprolol Succinate 25 MG DAILY 12/19 1000 AC 12/23 PO 0756 Omeprazole 20 MG DAILY AC 12/19 0700 AC 12/23 PO 0539 Oxycodone/ 1 TAB Q6P PRN 12/22 0245 AC 12/23 Acetaminophen PO 1326 Potassium Chloride 20 MEQ DAILY 12/19 1000 AC 12/23 PO 0756 Rivaroxaban 15 MG 1700 12/24 1700 AC PO Rivaroxaban 15 MG AT BEDTIME 12/23 2200 DC PO Rivaroxaban 15 MG ONCE ONE 12/23 1330 DC PO 12/23 1331 Tramadol HCl 50 MG Q6P PRN 12/19 0015 AC 12/23 PO 1116 Trimethobenzamide HCl 200 MG 4 TIMES/DAY PRN 12/20 0452 AC IM Last 24 Hrs of Lab/Jem Results Last 24 Hrs of Labs/Mics: Laboratory Tests 12/23/17 0825: Anion Gap 12, Estimated GFR > 60, BUN/Creatinine Ratio 20.0, CBC w Diff NO MAN DIFF REQ, RBC 3.32 L, MCV 78.4 L, MCH 25.8 L, MCHC 32.9 L, RDW 17.6 H, MPV 8.5, Gran % 73.4, Lymphocytes % 16.8 L, Monocytes % 6.4, Eosinophils % 3.1, Basophils % 0.3, Absolute Granulocytes 6.0, Absolute Lymphocytes 1.4, Absolute Monocytes 0.5, Absolute Eosinophils 0.3, Absolute Basophils 0 12/22/17 1805: CBC w Diff NO MAN DIFF REQ, RBC 3.28 L, MCV 78.9 L, MCH 26.2 L, MCHC 33.2, RDW 17.8 H, MPV 8.6, Gran % 78.1 H, Lymphocytes % 13.1 L, Monocytes % 6.9, Eosinophils % 1.6, Basophils % 0.3, Absolute Granulocytes 7.2 H, Absolute Lymphocytes 1.2, Absolute Monocytes 0.6, Absolute Eosinophils 0.1, Absolute Basophils 0 Assessment/Plan Assessment: 87-year-old female with past medical history of chronic asthma/COPD, 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) , enlarging lingular nodule s/p radiation therapy in 2013 c/b radiation pneumonitis, multinodular thyroid, hiatal hernia, GERD, HTN, mild LVH,diastolic dysfunction, CAD, and atrial fibrillation on Xarelto presented with left lower extremity cellulitis and hematoma LLE hematoma: with cellulitis -s/p I+D bedside on 12/1912/22/17 in [place] -Wound care consult, will follow-up on the recommendation -Continue IV Unasyn 3g Q6H -Elevate leg -Blood culture were negative -Goal Hemoglobin is above 8 Given her cardiac history. Acute blood loss anemia: from LLE hematoma and debridement -CBC stable s/p 2 units pRBCs Atrial fibrillation: Restart Xarelto 15mg Held perioperatively Regular diet DVT ppx-heparin 5000 units subcutaneous Q8H Full code Problem List: 1. CHF (congestive heart failure) 2. New onset a-fib 3. Hematoma 4. Cellulitis Pain Ratin Pain Location: LLE Pain Goal: Pain 4 or less Pain Plan: prn Tomorrow's Labs & Rationales: cbc, bep
--- NOTE | 2017-12-23 11:49 | Cons- Wound Care ---
General Information and HPI Consulting Request Date of Consult: 12/23/17 Requested By: Antonio Lopez MD Reason for Consult: Left leg traumatic History of Present Illness: Patient is 87-year-old with complex history of atrial fibrillation on anticoagulation lung cancer chronic edema admitted after trauma to her left leg with a large hematoma which required incision and drainage. She had acute blood loss anemia and required transfusion. She now has a residual left leg ulcer. She denies knowledge of peripheral vascular disease Allergies/Medications Allergies: Coded Allergies: adhesive tape (RASH ON SKIN THAT IT TOUCHES 10/22/17) iodine (DAVIS SKIN WHERE APPLIED 10/22/17) povidone-iodine (DAVIS SKIN WHERE IT IS APPLIED 10/22/17) shellfish derived (HIVES ALL OVER 10/22/17) propoxyphene (GI UPSET 10/22/17) Home Med List: Albuterol Sulfate 2.5 MG/3 ML (0.083 %) VIAL.NEB 1 Vial INH/JULIO TID COPD ( Reported) Albuterol Sulfate (Ventolin Hfa) 90 MCG HFA.AER.AD 2 PUF INH Q4-6 PRN PRN SHORTNESS OF BREATH Aspirin (Ecotrin*) 81 MG TABLET.DR 1 TAB PO DAILY HEART (Reported) Atorvastatin Calcium (Lipitor) 20 MG TABLET 1 TAB PO QPM CHOLESTEROL ( Reported) Budesonide/Formoterol Fumarate (Symbicort 160-4.5 Mcg Inhaler) 160 MCG-4.5 MCG/ ACTUATION HFA.AER.AD 2 PUF INH BID COPD (Reported) Cholecalciferol (Vitamin D3) (Vitamin D3) 1,000 UNIT CAPSULE 1 CAP PO DAILY HEALTH SUPPLEMENT (Reported) Diltiazem HCl (Diltiazem 24HR Cd) 120 MG CAP.ER.24H 1 CAP PO DAILY HEART/BP ( Reported) Esomeprazole Magnesium (Nexium) 20 MG CAPSULE.DR 1 CAP PO DAILY ACID REFLUX ( Reported) Fluticasone Propionate 50 MCG/ACTUATION SPRAY.SUSP 2 SPRAY NASB DAILY ALLERGIES (Reported) Furosemide 40 MG TABLET 1 TAB PO BID DIURETIC (Reported) Guaifenesin (Mucinex) 1,200 MG TAB.ER.12H 1 TAB PO BID ALLERGIES (Reported) Hydrocodone/Acetaminophen (Hydrocodon-Acetaminophen 5-325) 5 MG-325 MG TABLET 1 TAB PO BID PRN pain Losartan Potassium 100 MG TABLET 0.5 TAB PO BID BP (Reported) Magnesium Oxide 400 MG TABLET 1 TAB PO DAILY SUPPLEMENT (Reported) Metoprolol Succinate 25 MG TAB 1 TAB PO DAILY BP (Reported) [place]-3 Acid Ethyl Esters (Lovaza) 1 GRAM CAPSULE 1 CAP PO BID CHOLESTEROL/ TRIGLYCERIDES (Reported) Potassium Chloride 20 MEQ TAB.ER.PRT 1 TAB PO DAILY SUPPLEMENT (Reported) Rivaroxaban (Xarelto) 20 MG TABLET 1 TAB PO QPM A FIB (Reported) with food Past History Travel History Traveled to [place] past 21 day No Medical History Blood Transfusion Hx: Yes Neurological: NONE EENT: NONE Cardiovascular: AFIB, CHF, hypertension, hyperlipidemia Respiratory: COPD, pneumonia, radiation pneumonitis non-small cell lung cancer s /p lobectomy 2006 2007, s/p radiation 2013, c/b radiation pneumonitis Gastrointestinal: carcinoid syndrome, s/p resection Hepatic: NONE Renal: NONE Musculoskeletal: osteoarthritis Psychiatric: NONE Endocrine: NONE Blood Disorders: NONE 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 Home Who Do You Live With? spouse Services at Home: None Primary Language: Angolan Smoking Status: Never Smoked ETOH Use: denies use Illicit Drug Use: denies illicit drug use Living Will? yes Functional Ability ADLs Independent: dressing, eating, toileting, bathing. Ambulation: independent IADLs Independent: shopping, housework, finances, food prep, telephone, transportation , medication admin. Exam & Diagnostic Data Vital Signs and I&O Vital Signs Result Date Time O2 Delivery Nasal Cannula 12/23 799 O2 Flow Rate 1.0L 12/23 08 B/P 146/68 12/23 0756 Pulse 82 12/23 0756 Pulse Ox 98 12/23 0645 Temp 97.2 12/23 0645 Resp 22 12/23 0645 Intake & Output 12/23 0000 12/22 1600 12/22 0800 Intake Total 1030 640 Output Total 600 Balance 1030 40 Intake, IV 130 400 Intake, Oral 900 240 Output, Urine 600 On exam distal pulses are unable to palpated there is edema of the ankle over the left anterior leg is a 7.5 x 4.5 cm ulcer with red fill there is no undermining sinus tracking or exposed bone. There is superficial residual old blood present covering the wound. Assessment/Plan Impression/Plan: 87-year-old on anticoagulation for atrial fibrillation developed a large posttraumatic hematoma which required incision and drainage associated with acute blood loss anemia requiring transfusion. Recommendation is made for aggressive local wound cleansing and application of a wound VAC. Hand-held Doppler ultrasound will be obtained to assess her distal circulation. If her pulses appear compromised formal arterial ultrasound would be appropriate. Aggressive leg elevation would help resolve lower extremity edema. For circulation is adequate addition of multilayer compression dressing in addition of the wound VAC will be applied. If cultures remain negative would consider early discontinuation of antibiotics. Consult Acknowledgment - Thank you for your consult request.
--- NOTE | 2017-12-23 11:54 | PN- General Surgery ---
Surgical Brief Attending Note Brief Attending Note: doing well. resume anticoagulation. appreciate wound consult.
[2017-12-23 14:27] VITALS: BP 140/58
[2017-12-23 22:42] VITALS: BP 140/70
[2017-12-24 06:52] VITALS: BP 152/74
--- NOTE | 2017-12-24 07:10 | PN- Housestaff ---
Subjective Follow-up For: LLE hematoma s/p I+D anemia asthma/copd Subjective: patient feeling well, wound vac placed yesterday desaturated to 86% on room air at rest, 99% on 2L currently, audibly wheezing Review of Systems Constitutional: Reports: see HPI. Objective Last 24 Hrs of Vital Signs/I&O Vital Signs Date Time Temp Pulse Resp B/P B/P Pulse O2 O2 Flow FiO2 Mean Ox Delivery Rate 12/24 0933 84 152/74 12/24 0933 84 152/74 12/24 0901 94 Nasal 1.0L Cannula 12/24 0652 97.5 84 20 152/74 96 Nasal 1.0L Cannula 12/24 0000 99 Nasal 1.0L Cannula 12/23 2242 97.9 86 21 140/70 99 Nasal Cannula 12/23 2054 86 140/70 12/23 1930 97 Nasal 1.0L Cannula 12/23 1600 Nasal 1.0L Cannula 12/23 1427 98.0 93 22 140/58 93 Nasal 1.0L Cannula 12/23 1211 98 Nasal 1.0L Cannula Intake & Output 12/24 1600 12/24 0800 12/24 0000 Intake Total 250 830 Output Total 650 Balance -400 830 Intake, IV 130 Intake, Oral 250 700 Output, Urine 650 Physical Exam General Appearance: Alert, Oriented X3, Cooperative, No Acute Distress Cardiovascular: Regular Rate, Normal S1, Normal S2, No Murmurs Lungs: diffuse expiratory wheezing Abdomen: Normal Bowel Sounds, Soft, No Tenderness, No Masses Extremities: No Clubbing, No Cyanosis, LLE wound vac Current Medications: Current Medications Sig/Heena Start time Last Medication Dose Route Stop Time Status Admin Acetaminophen 650 MG Q8P PRN 12/19 0015 AC 12/20 PO 09 Albuterol Sulfate 3 ML BID 12/20 1450 AC 12/24 INH 0900 Ampicillin Sodium/ 3,000 MG Q6 12/19 0600 DC 12/23 Sulbactam Sodium IV 12/23 2199 1728 Sodium Chloride 100 ML Aspirin Buffered 81 MG DAILY 12/19 1000 AC 12/24 PO 09 Atorvastatin Calcium 20 MG QPM 12/19 2200 AC 12/23 PO 205 Budesonide/ 2 PUF BID 12/19 1000 AC 12/24 Formoterol Fumarate INH 09 Cholecalciferol 1,000 IU DAILY 12/19 1000 AC 12/24 PO 0933 Diltiazem HCl 120 MG DAILY 12/19 1000 AC 12/24 PO 0933 Fish Oil 1,050 MG BID 12/19 1000 AC 12/24 PO 0932 Fluticasone 2 SPRAY DAILY 12/19 1000 AC 12/24 Propionate MARCO 0931 Furosemide 40 MG BID 12/19 1000 AC 12/24 PO 0933 Guaifenesin 1,200 MG BID 12/19 1000 AC 12/24 PO 0933 Losartan Potassium 50 MG BID 12/19 1000 AC 12/24 PO 0933 Magnesium Oxide 400 MG DAILY 12/19 1000 AC 12/24 PO 0932 Metoprolol Succinate 25 MG DAILY 12/19 1000 AC 12/24 PO 0933 Omeprazole 20 MG DAILY AC 12/19 0700 AC 12/24 PO 0541 Oxycodone/ 1 TAB Q6P PRN 12/22 0245 AC 12/24 Acetaminophen PO 0932 Potassium Chloride 20 MEQ DAILY 12/19 1000 AC 12/24 PO 0933 Prednisone 40 MG DAILY 12/24 1013 UNVr PO Rivaroxaban 15 MG 1700 12/24 1700 AC PO Rivaroxaban 15 MG AT BEDTIME 12/23 2200 DC PO Rivaroxaban 15 MG ONCE ONE 12/23 1700 DC 12/23 PO 12/23 1701 1631 Rivaroxaban 15 MG ONCE ONE 12/23 1330 CAN PO 12/23 1331 Tramadol HCl 50 MG Q6P PRN 12/19 0015 AC 12/24 PO 0541 Trimethobenzamide HCl 200 MG 4 TIMES/DAY PRN 12/20 0452 AC IM Last 24 Hrs of Lab/Jem Results Last 24 Hrs of Labs/Mics: Laboratory Tests 12/24/17 0805: CBC w Diff NO MAN DIFF REQ, RBC 3.49 L, MCV 79.6 L, MCH 26.0 L, MCHC 32.7 L, RDW 17.9 H, MPV 7.9, Gran % 76.9 H, Lymphocytes % 13.8 L, Monocytes % 6.1, Eosinophils % 2.8, Basophils % 0.4, Absolute Granulocytes 8.2 H, Absolute Lymphocytes 1.5, Absolute Monocytes 0.7 H, Absolute Eosinophils 0.3, Absolute Basophils 0 Assessment/Plan Assessment: 87-year-old female with past medical history of chronic asthma/COPD, 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) , enlarging lingular nodule s/p radiation therapy in 2013 c/b radiation pneumonitis, multinodular thyroid, hiatal hernia, GERD, HTN, mild LVH,diastolic dysfunction, CAD, and atrial fibrillation on Xarelto presented with left lower extremity cellulitis and hematoma History of asthma/COPD: was on 1L supplemental oxygen, baseline is room air at home Hypoxia to an SpO2 86% on room air at rest Titrate supplemental oxygen to maintain an SpO2 > 92% Continue flonase, mucinex, and symbicort Add spiriva Portable chest x-ray now Pulmonology consultation Prednisone 40mg PO daily TRC evaluation LLE hematoma: with cellulitis -s/p I+D bedside on 12/1912/22/17 in [place], now s/p wound vac placement -Wound care consult, will follow-up on their recommendations -Discontinued Unasyn -Elevate leg -Blood culture were negative Acute blood loss anemia: from LLE hematoma and debridement -CBC stable s/p 2 units pRBCs -Goal Hemoglobin is above 8 Atrial fibrillation: Restart Xarelto 15mg Held perioperatively Regular diet DVT ppx-heparin 5000 units subcutaneous Q8H Full code Problem List: 1. Bronchitis 2. Dyspnea 3. Reactive airway disease 4. A-fib Pain Ratin Pain Location: LLE Pain Goal: Pain 4 or less Pain Plan: prn Tomorrow's Labs & Rationales: cbc
--- NOTE | 2017-12-24 08:19 | PN- Wound Care ---
Subjective Subjective: Patient complaining of abdominal discomfort she's tolerating the wound VAC without difficulty her legs are effectively elevated Objective Vital Signs and I&Os Vital Signs Result Date Time Pulse Ox 96 12/24 651 B/P 152/74 12/24 651 O2 Delivery Nasal Cannula 12/24 651 O2 Flow Rate 1.0L 12/24 651 Temp 97.5 12/24 651 Pulse 84 12/24 651 Resp 20 12/24 651 Intake & Output 12/24 0000 12/23 1600 12/23 0800 Intake Total 830 750 460 Output Total 500 500 Balance 830 250 -40 Intake, IV 130 200 220 Intake, Oral 700 550 240 Number 1 Bowel Movements Output, Urine 500 500 Patient 165 lb Weight There is minimal drainage from the wound VAC. The edema is improved with Manan wrap and leg elevation. Distal pulses are easily identified by hand-held Doppler ultrasound. Impression/Plan Impression/Plan Impression/Plan: 87-year-old on anticoagulation for atrial fibrillation developed a large posttraumatic hematoma which required incision and drainage associated with acute blood loss anemia requiring transfusion. Distal pulses easily identified by hand-held Doppler ultrasound wound VAC applied yesterday. It will be changed today to establish a Friday schedule. Continue leg elevation Manan wrap and patient can be seen in follow-up in the wound center for wound VAC changes she will need home health services as well for wound VAC changes
[2017-12-24 09:06] LABS: ABSOLUTE BASOPHIL COUNT 0 /CUMM (0.0-0.2); ABSOLUTE EOSINOPHIL COUNT 0.3 /CUMM (0.0-0.7); ABSOLUTE GRANULOCYTE CT 8.2 /CUMM (1.4-6.5); ABSOLUTE LYMPH COUNT 1.5 /CUMM (1.2-3.4); ABSOLUTE MONOCYTE COUNT 0.7 /CUMM (0.10-0.60); BASOPHIL % 0.4 % (0.0-2.0); EOSINOPHIL % 2.8 % (0-5); GRANULOCYTE % 76.9 % (42.2-75.2); HEMATOCRIT 27.8 % (37-47); MEAN CORPUSCULAR HGB CONC 32.7 G/DL (33.0-37.0); MEAN CORPUSCULAR VOLUME 79.6 FL (81.0-99.0); MEAN PLATELET VOLUME 7.9 FL (7.4-10.4); PLATELET COUNT 295 /CUMM (130-400); RBC DISTRIBUTION WIDTH 17.9 % (11.5-14.5); RED BLOOD CELL CT 3.49 /CUMM (4.20-5.40); WHITE BLOOD CELL COUNT 10.7 /CUMM (4.8-10.8)
--- NOTE | 2017-12-24 09:45 | PN- Att Addend ---
Attending Addendum Attending Brief Note This morning patient feels short of breath and his wheezing. Respiratory therapist check O2 sats, she desaturated on room air. She is also little wheezy. From the leg, she was seen by the wound Center, has a VAC on right now. We'll check a chest x-ray to make sure she is not in congestive heart failure, otherwise ask Dr. Elias to see the patient she might need IV steroids for her pulmonary condition, Intake & Output 12/24 1600 12/24 0400 12/23 1600 12/23 0400 12/22 1600 12/22 0400 Intake Total 454 991 9842 1030 640 Output Total 650 1000 600 600 Balance -400 634 799 5431 40 -600 Intake, IV 130 420 130 400 Intake, Oral 250 700 790 900 240 Number 1 Bowel Movements Output, Urine 650 1000 600 600 Patient 165 lb Weight Current Medications Sig/Heena Start time Last Medication Dose Route Stop Time Status Admin Acetaminophen 650 MG Q8P PRN 12/19 0015 AC 12/20 PO 0921 Albuterol Sulfate 3 ML BID 12/20 1450 AC 12/24 INH 0900 Ampicillin Sodium/ 3,000 MG Q6 12/19 0600 DC 12/23 Sulbactam Sodium IV 12/23 2200 1728 Sodium Chloride 100 ML Aspirin Buffered 81 MG DAILY 12/19 1000 AC 12/24 PO 0933 Atorvastatin Calcium 20 MG QPM 12/19 2200 AC 12/23 PO 2054 Budesonide/ 2 PUF BID 12/19 1000 AC 12/24 Formoterol Fumarate INH 0931 Cholecalciferol 1,000 IU DAILY 12/19 1000 AC 12/24 PO 0933 Diltiazem HCl 120 MG DAILY 12/19 1000 AC 12/24 PO 0933 Fish Oil 1,050 MG BID 12/19 1000 AC 12/24 PO 0932 Fluticasone 2 SPRAY DAILY 12/19 1000 AC 12/24 Propionate MARCO 0931 Furosemide 40 MG BID 12/19 1000 AC 12/24 PO 0933 Guaifenesin 1,200 MG BID 12/19 1000 AC 12/24 PO 0933 Losartan Potassium 50 MG BID 12/19 1000 AC 12/24 PO 0933 Magnesium Oxide 400 MG DAILY 12/19 1000 AC 12/24 PO 0932 Metoprolol Succinate 25 MG DAILY 12/19 1000 AC 12/24 PO 0933 Omeprazole 20 MG DAILY AC 12/19 0700 AC 12/24 PO 0541 Oxycodone/ 1 TAB Q6P PRN 12/22 0245 AC 12/24 Acetaminophen PO 0932 Potassium Chloride 20 MEQ DAILY 12/19 1000 AC 12/24 PO 0933 Rivaroxaban 15 MG 1700 12/24 1700 AC PO Rivaroxaban 15 MG AT BEDTIME 12/23 2200 DC PO Rivaroxaban 15 MG ONCE ONE 12/23 1700 DC 12/23 PO 12/23 1701 1631 Rivaroxaban 15 MG ONCE ONE 12/23 1330 CAN PO 12/23 1331 Tramadol HCl 50 MG Q6P PRN 12/19 0015 AC 12/24 PO 0541 Trimethobenzamide HCl 200 MG 4 TIMES/DAY PRN 12/20 0452 AC IM Laboratory Tests 12/24/17 0805: CBC w Diff NO MAN DIFF REQ, RBC 3.49 L, MCV 79.6 L, MCH 26.0 L, MCHC 32.7 L, RDW 17.9 H, MPV 7.9, Gran % 76.9 H, Lymphocytes % 13.8 L, Monocytes % 6.1, Eosinophils % 2.8, Basophils % 0.4, Absolute Granulocytes 8.2 H, Absolute Lymphocytes 1.5, Absolute Monocytes 0.7 H, Absolute Eosinophils 0.3, Absolute Basophils 0 12/23/17 0825: Anion Gap 12, Estimated GFR > 60, BUN/Creatinine Ratio 20.0, CBC w Diff NO MAN DIFF REQ, RBC 3.32 L, MCV 78.4 L, MCH 25.8 L, MCHC 32.9 L, RDW 17.6 H, MPV 8.5, Gran % 73.4, Lymphocytes % 16.8 L, Monocytes % 6.4, Eosinophils % 3.1, Basophils % 0.3, Absolute Granulocytes 6.0, Absolute Lymphocytes 1.4, Absolute Monocytes 0.5, Absolute Eosinophils 0.3, Absolute Basophils 0 12/22/17 1805: CBC w Diff NO MAN DIFF REQ, RBC 3.28 L, MCV 78.9 L, MCH 26.2 L, MCHC 33.2, RDW 17.8 H, MPV 8.6, Gran % 78.1 H, Lymphocytes % 13.1 L, Monocytes % 6.9, Eosinophils % 1.6, Basophils % 0.3, Absolute Granulocytes 7.2 H, Absolute Lymphocytes 1.2, Absolute Monocytes 0.6, Absolute Eosinophils 0.1, Absolute Basophils 0 12/22/17 0800: Anion Gap 14, Estimated GFR > 60, BUN/Creatinine Ratio 20.0, APTT 41 H, CBC w Diff NO MAN DIFF REQ, RBC 3.44 L, MCV 78.6 L, MCH 26.0 L, MCHC 33.1, RDW 17.9 H, MPV 8.6, Gran % 68.1, Lymphocytes % 21.5, Monocytes % 7.6, Eosinophils % 2.4 , Basophils % 0.4, Absolute Granulocytes 5.5, Absolute Lymphocytes 1.7, Absolute Monocytes 0.6, Absolute Eosinophils 0.2, Absolute Basophils 0 12/22/17 0130: APTT 28, CBC w Diff NO MAN DIFF REQ, RBC 3.29 L, MCV 78.6 L, MCH 25.7 L, MCHC 32.7 L, RDW 17.6 H, MPV 7.9, Gran % 64.0, Lymphocytes % 24.5, Monocytes % 9.1, Eosinophils % 1.8, Basophils % 0.6, Absolute Granulocytes 4.3, Absolute Lymphocytes 1.6, Absolute Monocytes 0.6, Absolute Eosinophils 0.1, Absolute Basophils 0 12/21/17 2100: APTT 36 12/21/17 1740: CBC w Diff NO MAN DIFF REQ, RBC 3.04 L, MCV 77.3 L, MCH 25.0 L, MCHC 32.4 L, RDW 17.3 H, MPV 8.6, Gran % 74.6, Lymphocytes % 16.8 L, Monocytes % 7.0, Eosinophils % 1.1, Basophils % 0.5, Absolute Granulocytes 6.5, Absolute Lymphocytes 1.5, Absolute Monocytes 0.6, Absolute Eosinophils 0.1, Absolute Basophils 0 12/21/17 1130: APTT 57 H Vital Signs Date Time Temp Pulse Resp B/P B/P Pulse O2 O2 Flow FiO2 Mean Ox Delivery Rate 12/24 0933 84 152/74 12/24 0933 84 152/74 12/24 0901 94 Nasal 1.0L Cannula 12/24 0652 97.5 84 20 152/74 96 Nasal 1.0L Cannula 12/24 0000 99 Nasal 1.0L Cannula 12/232 97.9 86 21 140/70 99 Nasal Cannula 12/234 86 140/70 12/23 1930 97 Nasal 1.0L Cannula 12/23 1600 Nasal 1.0L Cannula 12/23 1427 98.0 93 22 140/58 93 Nasal 1.0L Cannula 12/23 1211 98 Nasal 1.0L Cannula
--- NOTE | 2017-12-24 10:30 | Cons- Pulmonary ---
General Information and HPI Consulting Request Date of Consult: 12/24/17 Requested By: Dr. Lopez Reason for Consult: Wheezing Source of Information: patient, old records Exam Limitations: no limitations History of Present Illness: The patient is an 87-year-old female well-known to me from previous outpatient visits and hospitalizations. 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 The patient injured her left lower extremity, resulting in a significan large posttraumatic hematoma which required incision and drainage associated with acute blood loss anemia requiring transfusion. The patient received 2 units of PRBCs as a result. Post transfusion, she has been noted to be wheezing significantly. She is currently on nebs/TRC, and solumedrol. She has ongoing orthopnea. She has not received any Lasix post transfusion. Allergies/Medications Allergies: Coded Allergies: adhesive tape (RASH ON SKIN THAT IT TOUCHES 10/22/17) iodine (DAVIS SKIN WHERE APPLIED 10/22/17) povidone-iodine (DAVIS SKIN WHERE IT IS APPLIED 10/22/17) shellfish derived (HIVES ALL OVER 10/22/17) propoxyphene (GI UPSET 10/22/17) Home Med List: Albuterol Sulfate 2.5 MG/3 ML (0.083 %) VIAL.NEB 1 Vial INH/JULIO TID COPD ( Reported) Albuterol Sulfate (Ventolin Hfa) 90 MCG HFA.AER.AD 2 PUF INH Q4-6 PRN PRN SHORTNESS OF BREATH Aspirin (Ecotrin*) 81 MG TABLET.DR 1 TAB PO DAILY HEART (Reported) Atorvastatin Calcium (Lipitor) 20 MG TABLET 1 TAB PO QPM CHOLESTEROL ( Reported) Budesonide/Formoterol Fumarate (Symbicort 160-4.5 Mcg Inhaler) 160 MCG-4.5 MCG/ ACTUATION HFA.AER.AD 2 PUF INH BID COPD (Reported) Cholecalciferol (Vitamin D3) (Vitamin D3) 1,000 UNIT CAPSULE 1 CAP PO DAILY HEALTH SUPPLEMENT (Reported) Diltiazem HCl (Diltiazem 24HR Cd) 120 MG CAP.ER.24H 1 CAP PO DAILY HEART/BP ( Reported) Esomeprazole Magnesium (Nexium) 20 MG CAPSULE.DR 1 CAP PO DAILY ACID REFLUX ( Reported) Fluticasone Propionate 50 MCG/ACTUATION SPRAY.SUSP 2 SPRAY NASB DAILY ALLERGIES (Reported) Furosemide 40 MG TABLET 1 TAB PO BID DIURETIC (Reported) Guaifenesin (Mucinex) 1,200 MG TAB.ER.12H 1 TAB PO BID ALLERGIES (Reported) Hydrocodone/Acetaminophen (Hydrocodon-Acetaminophen 5-325) 5 MG-325 MG TABLET 1 TAB PO BID PRN pain Losartan Potassium 100 MG TABLET 0.5 TAB PO BID BP (Reported) Magnesium Oxide 400 MG TABLET 1 TAB PO DAILY SUPPLEMENT (Reported) Metoprolol Succinate 25 MG TAB 1 TAB PO DAILY BP (Reported) [place]-3 Acid Ethyl Esters (Lovaza) 1 GRAM CAPSULE 1 CAP PO BID CHOLESTEROL/ TRIGLYCERIDES (Reported) Potassium Chloride 20 MEQ TAB.ER.PRT 1 TAB PO DAILY SUPPLEMENT (Reported) Rivaroxaban (Xarelto) 20 MG TABLET 1 TAB PO QPM A FIB (Reported) with food Current Medications: Current Medications Sig/Heena Start time Last Medication Dose Route Stop Time Status Admin Acetaminophen 650 MG Q8P PRN 12/19 0015 AC 12/20 PO 0921 Albuterol Sulfate 3 ML BID 12/20 1450 AC 12/24 INH 0900 Ampicillin Sodium/ 3,000 MG Q6 12/19 0600 DC 12/23 Sulbactam Sodium IV 12/23 2200 1728 Sodium Chloride 100 ML Aspirin Buffered 81 MG DAILY 12/19 1000 AC 12/24 PO 0933 Atorvastatin Calcium 20 MG QPM 12/19 2200 AC 12/23 PO 2054 Budesonide/ 2 PUF BID 12/19 1000 AC 12/24 Formoterol Fumarate INH 0931 Cholecalciferol 1,000 IU DAILY 12/19 1000 AC 12/24 PO 0933 Diltiazem HCl 120 MG DAILY 12/19 1000 AC 12/24 PO 0933 Fish Oil 1,050 MG BID 12/19 1000 AC 12/24 PO 0932 Fluticasone 2 SPRAY DAILY 12/19 1000 AC 12/24 Propionate MARCO 0931 Furosemide 40 MG BID 12/19 1000 AC 12/24 PO 0933 Guaifenesin 1,200 MG BID 12/19 1000 AC 12/24 PO 0933 Losartan Potassium 50 MG BID 12/19 1000 AC 12/24 PO 0933 Magnesium Oxide 400 MG DAILY 12/19 1000 AC 12/24 PO 0932 Metoprolol Succinate 25 MG DAILY 12/19 1000 AC 12/24 PO 0933 Omeprazole 20 MG DAILY AC 12/19 0700 AC 12/24 PO 0541 Oxycodone/ 1 TAB Q6P PRN 12/22 0245 AC 12/24 Acetaminophen PO 0932 Potassium Chloride 20 MEQ DAILY 12/19 1000 AC 12/24 PO 0933 Prednisone 40 MG DAILY 12/24 1013 UNVr PO Rivaroxaban 15 MG 1700 12/24 1700 AC PO Rivaroxaban 15 MG AT BEDTIME 12/23 2200 DC PO Rivaroxaban 15 MG ONCE ONE 12/23 1700 DC 12/23 PO 12/23 1701 1631 Rivaroxaban 15 MG ONCE ONE 12/23 1330 CAN PO 12/23 1331 Tramadol HCl 50 MG Q6P PRN 12/19 0015 AC 12/24 PO 0541 Trimethobenzamide HCl 200 MG 4 TIMES/DAY PRN 12/20 0452 AC IM Review of Systems Review of Systems All Other Systems: Reviewed and Negative Past History Travel History Traveled to [place] past 21 day No Medical History Blood Transfusion Hx: Yes Neurological: NONE EENT: NONE Cardiovascular: AFIB, CHF, hypertension, hyperlipidemia Respiratory: COPD, pneumonia, radiation pneumonitis non-small cell lung cancer s /p lobectomy 2006 2007, s/p radiation 2013, c/b radiation pneumonitis Gastrointestinal: carcinoid syndrome, s/p resection Hepatic: NONE Renal: NONE Musculoskeletal: osteoarthritis Psychiatric: NONE Endocrine: NONE Blood Disorders: NONE Cancer(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 Home Who Do You Live With? spouse Services at Home: None Primary Language: Spanish Smoking Status: Never Smoked ETOH Use: denies use Illicit Drug Use: denies illicit drug use Living Will? yes Functional Ability ADLs Independent: dressing, eating, toileting, bathing. Ambulation: independent IADLs Independent: shopping, housework, finances, food prep, telephone, transportation , medication admin. Exam & Diagnostic Data Last 24 Hrs of Vital Signs/I&O Vital Signs Date Time Temp Pulse Resp B/P B/P Pulse O2 O2 Flow FiO2 Mean Ox Delivery Rate 12/24 0933 84 152/74 12/24 0933 84 152/74 12/24 0901 94 Nasal 1.0L Cannula 12/24 0652 97.5 84 20 152/74 96 Nasal 1.0L Cannula 12/24 0000 99 Nasal 1.0L Cannula 12/23 2242 97.9 86 21 140/70 99 Nasal Cannula 12/23 2054 86 140/70 12/23 1930 97 Nasal 1.0L Cannula 12/23 1600 Nasal 1.0L Cannula 12/23 1427 98.0 93 22 140/58 93 Nasal 1.0L Cannula 12/23 1211 98 Nasal 1.0L Cannula Intake & Output 12/24 1600 12/24 0800 12/24 0000 Intake Total 250 830 Output Total 650 Balance -400 830 Intake, IV 130 Intake, Oral 250 700 Output, Urine 650 Physical Exam General Appearance: no apparent distress, alert, awake Head: atraumatic, normal appearance Neck: supple Respiratory: crackles, wheezing Cardiovascular: irregularly irregular Gastrointestinal: normal bowel sounds, soft, non-tender Extremities: left lower extremity dressings and wound vac in place Skin: intact, normal color, warm/dry Last 48 Hrs of Labs/Jem: Laboratory Tests 12/24/17 0805: CBC w Diff NO MAN DIFF REQ, RBC 3.49 L, MCV 79.6 L, MCH 26.0 L, MCHC 32.7 L, RDW 17.9 H, MPV 7.9, Gran % 76.9 H, Lymphocytes % 13.8 L, Monocytes % 6.1, Eosinophils % 2.8, Basophils % 0.4, Absolute Granulocytes 8.2 H, Absolute Lymphocytes 1.5, Absolute Monocytes 0.7 H, Absolute Eosinophils 0.3, Absolute Basophils 0 12/23/17 0825: Anion Gap 12, Estimated GFR > 60, BUN/Creatinine Ratio 20.0, CBC w Diff NO MAN DIFF REQ, RBC 3.32 L, MCV 78.4 L, MCH 25.8 L, MCHC 32.9 L, RDW 17.6 H, MPV 8.5, Gran % 73.4, Lymphocytes % 16.8 L, Monocytes % 6.4, Eosinophils % 3.1, Basophils % 0.3, Absolute Granulocytes 6.0, Absolute Lymphocytes 1.4, Absolute Monocytes 0.5, Absolute Eosinophils 0.3, Absolute Basophils 0 12/22/17 1805: CBC w Diff NO MAN DIFF REQ, RBC 3.28 L, MCV 78.9 L, MCH 26.2 L, MCHC 33.2, RDW 17.8 H, MPV 8.6, Gran % 78.1 H, Lymphocytes % 13.1 L, Monocytes % 6.9, Eosinophils % 1.6, Basophils % 0.3, Absolute Granulocytes 7.2 H, Absolute Lymphocytes 1.2, Absolute Monocytes 0.6, Absolute Eosinophils 0.1, Absolute Basophils 0 Diagnostic Data CXR Results There are findings suggesting early changes of pulmonary edema and there is subsegmental atelectasis or consolidative disease within the lower lobes. The possibility of pneumonia cannot be excluded on the basis of this examination. Assessment/Plan Impression/Plan: 1. History of recurrent bronchospasm requiring periodic steroid therapy. 2. Volume overload in the setting of transfusion x 2 units. CXR is consistent with pulmonary edema. 3. Post traumatic large left lower extremity hematoma requiring I&D with acute blood loss anemia. 4. Atrial fibrillation. 5. History of diastolic dysfunction. Recommendations: * Discussed with primary team - agree with diuresis. If no improvement, will need to involve cardiology. * Monitor I & Os. * TRC evaluation for neb treatments around the clock. * Continue Symbicort. * Add Singulair 10 mg daily. * Mucinex 600 mg BID. * Oral Azithromycin for 5 days. * Continue with slow prednisone taper. * DVT prophylaxis at all times. Consult Acknowledgment - Thank you for your consult request. * Mucinex 600 mg BID. * Oral Azithromycin for 5 days. * Continue with slow prednisone taper. * DVT prophylaxis at all times. Consult Acknowledgment - Thank you for your consult request.
--- NOTE | 2017-12-24 11:53 | RADIOLOGY REPORT ---
EXAMINATION: XR PORTABLE CHEST CLINICAL INFORMATION: Hypoxia. Question pneumonia. COMPARISON: Chest radiograph 10/22/2017. TECHNIQUE: Portable frontal view of the chest was obtained. FINDINGS: Lung volumes are low. There are ill-defined opacities within the lung bases that may represent a manifestation of consolidative disease or atelectasis. There is hilar vascular engorgement and diffusely increased interstitial markings. The cardiac silhouette and upper mediastinal contours are unremarkable. No acute osseous finding. IMPRESSION: There are findings suggesting early changes of pulmonary edema and there is subsegmental atelectasis or consolidative disease within the lower lobes. The possibility of pneumonia cannot be excluded on the basis of this examination.
[2017-12-24 13:49] VITALS: BP 154/78
[2017-12-24 22:34] VITALS: BP 120/80
[2017-12-25 06:20] VITALS: BP 134/76
--- NOTE | 2017-12-25 07:02 | PN- Housestaff ---
Subjective Follow-up For: LLE hematoma acute hypoxemic resp failure Subjective: breathing is improved today, wound vac on left leg no new complaints Review of Systems Constitutional: Reports: see HPI. Objective Last 24 Hrs of Vital Signs/I&O Vital Signs Date Time Temp Pulse Resp B/P B/P Pulse O2 O2 Flow FiO2 Mean Ox Delivery Rate 12/25 1433 97.7 87 20 112/70 91 12/25 1132 92 Room Air 12/25 0908 98.0 80 14 124/82 12/25 0907 98.0 80 14 124/82 12/25 0851 94 Nasal 1.0L Cannula 12/25 0800 92 Room Air 12/25 0620 98.1 80 20 134/76 96 Nasal 1.0L Cannula 12/25 0024 95 Nasal 1.0L Cannula 12/25 0000 98 Nasal 1.0L Cannula 12/24 2234 98.3 87 20 120/80 98 Nasal Cannula 12/24 2106 98.3 87 20 120/80 12/24 1645 98 Nasal 2.0L Cannula 12/24 1600 100 Nasal 1.0L Cannula Intake & Output 12/25 1600 12/25 0800 12/25 0000 Intake Total 200 480 Output Total 910 400 Balance -710 80 Intake, Oral 200 480 Number 0 Bowel Movements Output, 10 Drainage Output, Urine 900 400 Physical Exam General Appearance: Alert, Oriented X3, Cooperative, No Acute Distress, on supplemental oxygen Cardiovascular: Regular Rate, Normal S1, Normal S2, No Murmurs Lungs: scattered expiratory wheezing, improved from yesterday Abdomen: Normal Bowel Sounds, Soft, No Tenderness, No Masses Extremities: No Clubbing, No Cyanosis, Normal Pulses, LLE wound vac with chelsie wrap Current Medications: Current Medications Sig/Heena Start time Last Medication Dose Route Stop Time Status Admin Acetaminophen 650 MG Q8P PRN 12/19 0015 AC 12/20 PO 0921 Albuterol Sulfate 3 ML Q4 12/24 1400 AC 12/25 INH 1155 Aspirin Buffered 81 MG DAILY 12/19 1000 AC 12/25 PO 0908 Atorvastatin Calcium 20 MG QPM 12/19 2200 AC 12/24 PO 2106 Azithromycin 500 MG DAILY 12/24 1247 AC 12/25 PO 0906 Budesonide/ 2 PUF BID 12/19 1000 AC 12/25 Formoterol Fumarate INH 0908 Cholecalciferol 1,000 IU DAILY 12/19 1000 AC 12/25 PO 0906 Diltiazem HCl 120 MG DAILY 12/19 1000 AC 12/25 PO 0908 Fish Oil 1,050 MG BID 12/19 1000 AC 12/25 PO 0907 Fluticasone 2 SPRAY DAILY 12/19 1000 AC 12/25 Propionate MARCO 0908 Furosemide 40 MG ONCE ONE 12/24 1445 DC 12/24 IV 12/24 1446 1604 Furosemide 40 MG BID 12/19 1000 AC 12/25 PO 0908 Guaifenesin 1,200 MG BID 12/19 1000 AC 12/25 PO 0907 Losartan Potassium 50 MG BID 12/19 1000 AC 12/25 PO 0908 Magnesium Oxide 400 MG DAILY 12/19 1000 AC 12/25 PO 0908 Metoprolol Succinate 25 MG DAILY 12/19 1000 AC 12/25 PO 0907 Montelukast Sodium 10 MG AT BEDTIME 12/24 2200 AC 12/24 PO 2105 Nystatin 1 ELDA BID 12/25 1126 AC TOP Omeprazole 20 MG DAILY AC 12/19 0700 AC 12/25 PO 0550 Oxycodone/ 1 TAB Q6P PRN 12/22 0245 AC 12/25 Acetaminophen PO 1055 Potassium Chloride 20 MEQ DAILY 12/19 1000 AC 12/25 PO 0909 Prednisone 40 MG DAILY 12/24 1013 AC 12/25 PO 0907 Rivaroxaban 15 MG 1700 12/24 1700 AC 12/24 PO 1605 Tiotropium Stephan 1 PUF DAILY 12/24 1029 AC 12/25 INH 0908 Tramadol HCl 50 MG Q6P PRN 12/19 0015 AC 12/25 PO 0551 Trimethobenzamide HCl 200 MG 4 TIMES/DAY PRN 12/20 0452 AC IM Last 24 Hrs of Lab/Jem Results Last 24 Hrs of Labs/Mics: Laboratory Tests 12/25/17 0831: Anion Gap 15, Estimated GFR > 60, BUN/Creatinine Ratio 20.0, CBC w Diff NO MAN DIFF REQ, RBC 3.72 L, MCV 78.8 L, MCH 25.5 L, MCHC 32.3 L, RDW 18.2 H, MPV 8.2, Gran % 79.0 H, Lymphocytes % 14.9 L, Monocytes % 5.8, Eosinophils % 0.1, Basophils % 0.2, Absolute Granulocytes 7.4 H, Absolute Lymphocytes 1.4, Absolute Monocytes 0.5, Absolute Eosinophils 0, Absolute Basophils 0 Assessment/Plan Assessment: 87-year-old female with past medical history of chronic asthma/COPD, 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) , enlarging lingular nodule s/p radiation therapy in 2013 c/b radiation pneumonitis, multinodular thyroid, hiatal hernia, GERD, HTN, mild LVH,diastolic dysfunction, CAD, and atrial fibrillation on Xarelto presented with left lower extremity cellulitis and hematoma Acute hypoxemic respiratory failure: secondary to reactive airway disease/copd exacerbation vs volume overload h/o diastolic heart failure with recent blood transfusion and fluid resuscitation for acute blood loss anemia Baseline is room air at home patient became hypoxemic at rest yesterday to an SpO2 86% Titrate supplemental oxygen to maintain an SpO2 > 92% Continue flonase, mucinex, and symbicort Add spiriva and singulair Portable chest x-ray showed bibasilar consolidation, no cough or fever at this time Pulmonology consulted, appreciate recommendations Prednisone 40mg PO daily TRC evaluation for nebulized albuterol and ipatropium treatments Additional 40mg IV lasix x 1 given for possible cardiogenic pulmonary vascular congestion LLE hematoma: -s/p I+D bedside on 12/1912/22/17 in [place], now s/p wound vac placement -Wound care consult, will follow-up on their recommendations -Elevate leg Acute blood loss anemia: from LLE hematoma and debridement -CBC stable s/p 2 units pRBCs Atrial fibrillation: Continue Xarelto 15mg PT evaluation today for recommendation STR vs home with health services for wound vac to LLE Regular diet DVT ppx-heparin 5000 units subcutaneous Q8H Full code Problem List: 1. Bronchitis 2. CHF (congestive heart failure) 3. Dyspnea 4. Reactive airway disease 5. Hematoma 6. A-fib 7. Anemia Pain Ratin Pain Location: LLE Pain Goal: Pain 4 or less Pain Plan: prn Tomorrow's Labs & Rationales: none
--- NOTE | 2017-12-25 08:44 | PN- Wound Care ---
Subjective Subjective: Patient feels well without complaints she has minor discomfort secondary to her ulcer Objective Vital Signs and I&Os Vital Signs Result Date Time Pulse Ox 96 12/25 619 B/P 134/76 12/25 619 O2 Delivery Nasal Cannula 12/25 619 O2 Flow Rate 1.0L 12/25 619 Temp 98.1 12/25 619 Pulse 80 12/25 0620 Resp 20 12/25 06 Intake & Output 12/25 0000 12/24 1600 12/24 0800 Intake Total 480 480 250 Output Total 400 650 650 Balance 80 -170 -400 Intake, Oral 480 480 250 Number 0 Bowel Movements Output, Urine 400 650 650 Patient's VAC was changed yesterday and will be changed tomorrow. Edema is improved she is tolerating Manan compression. Hematocrit has stabilized. Impression/Plan Impression/Plan Impression/Plan: 87-year-old on anticoagulation for atrial fibrillation developed a large posttraumatic hematoma which required incision and drainage associated with acute blood loss anemia requiring transfusion. Distal pulses easily identified by hand-held Doppler ultrasound wound VAC changed yesterday. It is to continue wound VAC changes Friday with follow-up in the wound care center next week.
--- NOTE | 2017-12-25 09:02 | PN- Pulmonary ---
Subjective HPI/Critical Care Issues: Feeling much improved post diuresis. Wheezing improved. No sputum production. She denies any fever or chills. No chest pain. Objective Current Medications: Current Medications Sig/Heena Start time Last Medication Dose Route Stop Time Status Admin Acetaminophen 650 MG Q8P PRN 12/19 0015 AC 12/20 PO 0921 Albuterol Sulfate 3 ML Q4 12/24 1400 AC 12/25 INH 0848 Albuterol Sulfate 3 ML BID 12/20 1450 DC 12/24 INH 0900 Aspirin Buffered 81 MG DAILY 12/19 1000 AC 12/24 PO 0933 Atorvastatin Calcium 20 MG QPM 12/19 2200 AC 12/24 PO 2106 Azithromycin 500 MG DAILY 12/24 1247 AC 12/24 PO 1604 Budesonide/ 2 PUF BID 12/19 1000 AC 12/24 Formoterol Fumarate INH 2106 Cholecalciferol 1,000 IU DAILY 12/19 1000 AC 12/24 PO 0933 Diltiazem HCl 120 MG DAILY 12/19 1000 AC 12/24 PO 0933 Fish Oil 1,050 MG BID 12/19 1000 AC 12/24 PO 2105 Fluticasone 2 SPRAY DAILY 12/19 1000 AC 12/24 Propionate MARCO 0931 Furosemide 40 MG ONCE ONE 12/24 1445 DC 12/24 IV 12/24 1446 1604 Furosemide 40 MG BID 12/19 1000 AC 12/24 PO 2106 Guaifenesin 1,200 MG BID 12/19 1000 AC 12/24 PO 2105 Losartan Potassium 50 MG BID 12/19 1000 AC 12/24 PO 2106 Magnesium Oxide 400 MG DAILY 12/19 1000 AC 12/24 PO 0932 Metoprolol Succinate 25 MG DAILY 12/19 1000 AC 12/24 PO 0933 Montelukast Sodium 10 MG AT BEDTIME 12/24 2200 AC 12/24 PO 2105 Omeprazole 20 MG DAILY AC 12/19 0700 AC 12/25 PO 0550 Oxycodone/ 1 TAB Q6P PRN 12/22 0245 AC 12/25 Acetaminophen PO 0420 Potassium Chloride 20 MEQ DAILY 12/19 1000 AC 12/24 PO 0933 Prednisone 40 MG DAILY 12/24 1013 AC 12/24 PO 1211 Rivaroxaban 15 MG 1700 12/24 1700 AC 12/24 PO 1605 Tiotropium Louann 1 PUF DAILY 12/24 1029 AC 12/24 INH 1212 Tramadol HCl 50 MG Q6P PRN 12/19 0015 AC 12/25 PO 0551 Trimethobenzamide HCl 200 MG 4 TIMES/DAY PRN 12/20 0452 AC IM Vital Signs & I&O Last 24 Hrs of Vitals and I&O: Vital Signs Date Time Temp Pulse Resp B/P B/P Pulse O2 O2 Flow FiO2 Mean Ox Delivery Rate 12/25 0851 94 Nasal 1.0L Cannula 12/25 0620 98.1 80 20 134/76 96 Nasal 1.0L Cannula 12/25 0024 95 Nasal 1.0L Cannula 12/25 0000 98 Nasal 1.0L Cannula 12/24 2234 98.3 87 20 120/80 98 Nasal Cannula 12/24 2106 98.3 87 20 120/80 12/24 1645 98 Nasal 2.0L Cannula 12/24 1600 100 Nasal 1.0L Cannula 12/24 1349 97.6 96 20 154/78 100 12/24 0933 84 152/74 12/24 0933 84 152/74 Intake & Output 12/25 1600 12/25 0800 12/25 0000 Intake Total 200 480 Output Total 910 400 Balance -710 80 Intake, Oral 200 480 Number 0 Bowel Movements Output, 10 Drainage Output, Urine 900 400 Physical Exam General Appearance: no apparent distress, alert, awake Head: atraumatic, normal appearance Neck: supple Respiratory: improved crackles and wheezing Cardiovascular: irregularly irregular Gastrointestinal: normal bowel sounds, soft, non-tender Extremities: left lower extremity dressings and wound vac in place Skin: intact, normal color, warm/dry Impression/Plan Impression/Plan Impression/Plan: 1. History of recurrent bronchospasm requiring periodic steroid therapy. 2. Volume overload in the setting of transfusion x 2 units. CXR, consistent with pulmonary edema. 3. Post traumatic large left lower extremity hematoma requiring I&D with acute blood loss anemia. 4. Atrial fibrillation. 5. History of diastolic dysfunction. Recommendations: * Continue with diuresis. * Monitor I & Os. * TRC evaluation for neb treatments around the clock. * Continue Symbicort. * Add Singulair 10 mg daily. * Mucinex 600 mg BID. * Oral Azithromycin for 5 days. * Continue with slow prednisone taper. * DVT prophylaxis at all times.
[2017-12-25 09:28] LABS: ABSOLUTE BASOPHIL COUNT 0 /CUMM (0.0-0.2); ABSOLUTE EOSINOPHIL COUNT 0 /CUMM (0.0-0.7); ABSOLUTE GRANULOCYTE CT 7.4 /CUMM (1.4-6.5); ABSOLUTE LYMPH COUNT 1.4 /CUMM (1.2-3.4); ABSOLUTE MONOCYTE COUNT 0.5 /CUMM (0.10-0.60); BASOPHIL % 0.2 % (0.0-2.0); EOSINOPHIL % 0.1 % (0-5); HEMATOCRIT 29.3 % (37-47); MEAN CORPUSCULAR HGB 25.5 PG (27.0-31.0); MEAN CORPUSCULAR HGB CONC 32.3 G/DL (33.0-37.0); MEAN CORPUSCULAR VOLUME 78.8 FL (81.0-99.0); MEAN PLATELET VOLUME 8.2 FL (7.4-10.4); PLATELET COUNT 355 /CUMM (130-400); RBC DISTRIBUTION WIDTH 18.2 % (11.5-14.5); RED BLOOD CELL CT 3.72 /CUMM (4.20-5.40); WHITE BLOOD CELL COUNT 9.3 /CUMM (4.8-10.8)
--- NOTE | 2017-12-25 11:12 | PN- Att Addend ---
Attending Addendum Attending Brief Note Patient feeling and looking better today, breathing better appreciate pulmonary' s input and recommendations yesterday patient was just taken off the oxygen and her oxygen saturation on room air 94% her vital signs otherwise are stable no fever her lungs are clear. The VAC is still in place white count was 9300 and will have a physical therapy evaluation and after that start disposition plans Intake & Output 12/25 1600 12/25 0400 12/24 1600 12/24 0400 12/23 1600 12/23 0400 Intake Total 200 480 253 881 1124 1030 Output Total 373 777 5609 1000 Balance -710 80 -570 942 299 8347 Intake, IV 130 420 130 Intake, Oral 200 480 730 700 790 900 Number 0 0 1 Bowel Movements Output, 10 Drainage Output, Urine 656 265 6262 1000 Patient 165 lb Weight Current Medications Sig/Heena Start time Last Medication Dose Route Stop Time Status Admin Acetaminophen 650 MG Q8P PRN 12/19 0015 AC 12/20 PO 0921 Albuterol Sulfate 3 ML Q4 12/24 1400 AC 12/25 INH 0848 Aspirin Buffered 81 MG DAILY 12/19 1000 AC 12/25 PO 0908 Atorvastatin Calcium 20 MG QPM 12/19 2200 AC 12/24 PO 2106 Azithromycin 500 MG DAILY 12/24 1247 AC 12/25 PO 0906 Budesonide/ 2 PUF BID 12/19 1000 AC 12/25 Formoterol Fumarate INH 0908 Cholecalciferol 1,000 IU DAILY 12/19 1000 AC 12/25 PO 0906 Diltiazem HCl 120 MG DAILY 12/19 1000 AC 12/25 PO 0908 Fish Oil 1,050 MG BID 12/19 1000 AC 12/25 PO 0907 Fluticasone 2 SPRAY DAILY 12/19 1000 AC 12/25 Propionate MARCO 0908 Furosemide 40 MG ONCE ONE 12/24 1445 DC 12/24 IV 12/24 1446 1604 Furosemide 40 MG BID 12/19 1000 AC 12/25 PO 0908 Guaifenesin 1,200 MG BID 12/19 1000 AC 12/25 PO 0907 Losartan Potassium 50 MG BID 12/19 1000 AC 12/25 PO 0908 Magnesium Oxide 400 MG DAILY 12/19 1000 AC 12/25 PO 0908 Metoprolol Succinate 25 MG DAILY 12/19 1000 AC 12/25 PO 0907 Montelukast Sodium 10 MG AT BEDTIME 12/24 2200 AC 12/24 PO 2105 Omeprazole 20 MG DAILY AC 12/19 0700 AC 12/25 PO 0550 Oxycodone/ 1 TAB Q6P PRN 12/22 0245 AC 12/25 Acetaminophen PO 1055 Potassium Chloride 20 MEQ DAILY 12/19 1000 AC 12/25 PO 0909 Prednisone 40 MG DAILY 12/24 1013 AC 12/25 PO 0907 Rivaroxaban 15 MG 1700 12/24 1700 AC 12/24 PO 1605 Tiotropium [place] 1 PUF DAILY 12/24 1029 AC 12/25 INH 0908 Tramadol HCl 50 MG Q6P PRN 12/19 0015 AC 12/25 PO 0551 Trimethobenzamide HCl 200 MG 4 TIMES/DAY PRN 12/20 0452 [facility] Laboratory Tests 12/25/17 0831: Anion Gap 15, Estimated GFR > 60, BUN/Creatinine Ratio 20.0, CBC w Diff NO MAN DIFF REQ, RBC 3.72 L, MCV 78.8 L, MCH 25.5 L, MCHC 32.3 L, RDW 18.2 H, MPV 8.2, Gran % 79.0 H, Lymphocytes % 14.9 L, Monocytes % 5.8, Eosinophils % 0.1, Basophils % 0.2, Absolute Granulocytes 7.4 H, Absolute Lymphocytes 1.4, Absolute Monocytes 0.5, Absolute Eosinophils 0, Absolute Basophils 0 12/24/17 0805: CBC w Diff NO MAN DIFF REQ, RBC 3.49 L, MCV 79.6 L, MCH 26.0 L, MCHC 32.7 L, RDW 17.9 H, MPV 7.9, Gran % 76.9 H, Lymphocytes % 13.8 L, Monocytes % 6.1, Eosinophils % 2.8, Basophils % 0.4, Absolute Granulocytes 8.2 H, Absolute Lymphocytes 1.5, Absolute Monocytes 0.7 H, Absolute Eosinophils 0.3, Absolute Basophils 0 12/23/17 0825: Anion Gap 12, Estimated GFR > 60, BUN/Creatinine Ratio 20.0, Rhc-G-Gperdavjfiq Pept 2460 H, CBC w Diff NO MAN DIFF REQ, RBC 3.32 L, MCV 78.4 L, MCH 25.8 L, MCHC 32.9 L, RDW 17.6 H, MPV 8.5, Gran % 73.4, Lymphocytes % 16.8 L, Monocytes % 6.4, Eosinophils % 3.1, Basophils % 0.3, Absolute Granulocytes 6.0, Absolute Lymphocytes 1.4, Absolute Monocytes 0.5, Absolute Eosinophils 0.3, Absolute Basophils 0 12/22/17 1805: CBC w Diff NO MAN DIFF REQ, RBC 3.28 L, MCV 78.9 L, MCH 26.2 L, MCHC 33.2, RDW 17.8 H, MPV 8.6, Gran % 78.1 H, Lymphocytes % 13.1 L, Monocytes % 6.9, Eosinophils % 1.6, Basophils % 0.3, Absolute Granulocytes 7.2 H, Absolute Lymphocytes 1.2, Absolute Monocytes 0.6, Absolute Eosinophils 0.1, Absolute Basophils 0 Vital Signs Date Time Temp Pulse Resp B/P B/P Pulse O2 O2 Flow FiO2 Mean Ox Delivery Rate 12/25 0908 98.0 80 14 124/82 12/25 0907 98.0 80 14 124/82 12/25 0851 94 Nasal 1.0L Cannula 12/25 0620 98.1 80 20 134/76 96 Nasal 1.0L Cannula 12/25 0024 95 Nasal 1.0L Cannula 12/25 0000 98 Nasal 1.0L Cannula 12/24 2234 98.3 87 20 120/80 98 Nasal Cannula 12/24 2106 98.3 87 20 120/80 12/24 1645 98 Nasal 2.0L Cannula 12/24 1600 100 Nasal 1.0L Cannula 12/24 1349 97.6 96 20 154/78 100
[2017-12-25 14:33] VITALS: BP 112/70
[2017-12-25 16:00] VITALS: BP 112/78
[2017-12-25 22:28] VITALS: BP 140/70
[2017-12-26 05:45] VITALS: BP 120/72
--- NOTE | 2017-12-26 07:18 | PN- Housestaff ---
Subjective Follow-up For: LLE hematoma acute hypoxic respiratory failure secondary to COPD exacerbation Subjective: patient thinks her breathing is better, cough now productive of brown mucous, complains of LLE pain, no overnight events Review of Systems Constitutional: Reports: see HPI. Objective Last 24 Hrs of Vital Signs/I&O Vital Signs Date Time Temp Pulse Resp B/P B/P Pulse O2 O2 Flow FiO2 Mean Ox Delivery Rate 12/26 0545 97.8 87 19 120/72 93 12/26 0042 95 Room Air 12/25 2228 98.1 88 18 140/70 91 12/25 2120 98 134/70 12/25 2040 96 Room Air 12/25 1600 94 Room Air 12/25 1600 98.0 82 16 112/78 94 Room Air 12/25 1433 97.7 87 20 112/70 91 12/25 1132 92 Room Air Intake & Output 12/26 1600 12/26 0800 12/26 0000 Intake Total 100 100 Output Total 800 300 Balance -700 -200 Intake, Oral 100 100 Number 1 Bowel Movements Output, Urine 800 300 Physical Exam General Appearance: Alert, Oriented X3, Cooperative, No Acute Distress Cardiovascular: Regular Rate, Normal S1, Normal S2, No Murmurs Lungs: scattered end inspiratory and expiratory wheezing, restricted air entry Abdomen: Normal Bowel Sounds, Soft, No Tenderness, No Masses Extremities: No Clubbing, No Cyanosis, LLE wound vac, b/l 1+ lower extremity edema Current Medications: Current Medications Sig/Heena Start time Last Medication Dose Route Stop Time Status Admin Acetaminophen 650 MG Q8P PRN 12/19 0015 AC 12/20 PO 0921 Albuterol Sulfate 3 ML Q4 12/24 1400 AC 12/26 INH 0823 Aspirin Buffered 81 MG DAILY 12/19 1000 AC 12/25 PO 0908 Atorvastatin Calcium 20 MG QPM 12/19 2200 AC 12/25 PO 2120 Azithromycin 500 MG DAILY 12/24 1247 AC 12/25 PO 0906 Budesonide/ 2 PUF BID 12/19 1000 AC 12/25 Formoterol Fumarate INH 2120 Cholecalciferol 1,000 IU DAILY 12/19 1000 AC 12/25 PO 0906 Diltiazem HCl 120 MG DAILY 12/19 1000 AC 12/25 PO 0908 Fish Oil 1,050 MG BID 12/19 1000 AC 12/25 PO 2120 Fluticasone 2 SPRAY DAILY 12/19 1000 AC 12/25 Propionate MARCO 0908 Furosemide 40 MG BID 12/19 1000 AC 12/25 PO 2120 Guaifenesin 1,200 MG BID 12/19 1000 AC 12/25 PO 2120 Losartan Potassium 50 MG BID 12/19 1000 AC 12/25 PO 2120 Magnesium Oxide 400 MG DAILY 12/19 1000 AC 12/25 PO 0908 Metoprolol Succinate 25 MG DAILY 12/19 1000 AC 12/25 PO 0907 Montelukast Sodium 10 MG AT BEDTIME 12/24 2200 AC 12/25 PO 2120 Nystatin 1 ELDA BID 12/25 1126 AC 12/25 TOP 2120 Omeprazole 20 MG DAILY AC 12/19 0700 AC 12/26 PO 0557 Oxycodone/ 1 TAB Q6P PRN 12/22 0245 AC 12/26 Acetaminophen PO 0557 Potassium Chloride 20 MEQ DAILY 12/19 1000 AC 12/25 PO 0909 Prednisone 40 MG DAILY 12/24 1013 AC 12/25 PO 0907 Rivaroxaban 15 MG 1700 12/24 1700 AC 12/25 PO 1729 Tiotropium [place] 1 PUF DAILY 12/24 1029 AC 12/25 INH 0908 Tramadol HCl 50 MG Q6P PRN 12/19 0015 AC 12/26 PO 0334 Trimethobenzamide HCl 200 MG 4 TIMES/DAY PRN 12/20 0452 AC IM Assessment/Plan Assessment: 87-year-old female with past medical history of chronic asthma/COPD, 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) , enlarging lingular nodule s/p radiation therapy in 2013 c/b radiation pneumonitis, multinodular thyroid, hiatal hernia, GERD, HTN, mild LVH,diastolic dysfunction, CAD, and atrial fibrillation on Xarelto presented with left lower extremity cellulitis and hematoma Acute hypoxemic respiratory failure: secondary to reactive airway disease/copd exacerbation vs volume overload h/o diastolic heart failure with recent blood transfusion and fluid resuscitation for acute blood loss anemia Baseline is room air at home patient became hypoxemic at rest to an SpO2 86% Titrate supplemental oxygen to maintain an SpO2 > 92% TRC evaluation for nebulized albuterol and ipatropium treatments After treatment with steroids, bronchodilators, and antibiotics, hypoxia improved at rest Continue flonase, mucinex, spiriva, singulair, and symbicort Pulmonology consulted, appreciate recommendations Continue prednisone 40mg PO daily, discharge on taper Additional 40mg IV lasix x 1 given for possible cardiogenic pulmonary vascular congestion LLE hematoma: -s/p I+D bedside on 12/1912/22/17 in OR, now s/p wound vac placement -Wound care consult, will follow-up on their recommendations -Elevate leg -Send home with wound care services, follow up in wound care center Acute blood loss anemia: from LLE hematoma and debridement -CBC stable s/p 2 units pRBCs -Decrease home dose Xarelto from 20mg to 15mg given borderline CrCl and bleeding Atrial fibrillation: Continue Xarelto 15mg PT evaluation today for recommendation STR vs home with health services for wound vac to LLE Regular diet DVT ppx-heparin 5000 units subcutaneous Q8H Full code Problem List: 1. Bronchitis 2. CHF (congestive heart failure) 3. Reactive airway disease 4. A-fib 5. Anemia 6. Hematoma 7. Dyspnea Pain Ratin Pain Location: LLE Pain Goal: Pain 4 or less Pain Plan: prn Tomorrow's Labs & Rationales: none, planned discharge
[2017-12-26] MEDS ORDERED: AZITHROMYCIN500 M3 PO ×2 (08:14→19:15)
[2017-12-26] MEDS ORDERED: PREDNISONE10 M2 PO ×2 (08:14→19:15)
--- NOTE | 2017-12-26 09:05 | PN- Pulmonary ---
Objective Current Medications: Current Medications Sig/Heena Start time Last Medication Dose Route Stop Time Status Admin Acetaminophen 650 MG Q8P PRN 12/19 0015 AC 12/20 PO 0921 Albuterol Sulfate 3 ML Q4 12/24 1400 AC 12/26 INH 0823 Aspirin Buffered 81 MG DAILY 12/19 1000 AC 12/25 PO 0908 Atorvastatin Calcium 20 MG QPM 12/19 2200 AC 12/25 PO 2120 Azithromycin 500 MG DAILY 12/24 1247 AC 12/25 PO 0906 Budesonide/ 2 PUF BID 12/19 1000 AC 12/25 Formoterol Fumarate INH 2120 Cholecalciferol 1,000 IU DAILY 12/19 1000 AC 12/25 PO 0906 Diltiazem HCl 120 MG DAILY 12/19 1000 AC 12/25 PO 0908 Fish Oil 1,050 MG BID 12/19 1000 AC 12/25 PO 2120 Fluticasone 2 SPRAY DAILY 12/19 1000 AC 12/25 Propionate MARCO 0908 Furosemide 40 MG BID 12/19 1000 AC 12/25 PO 2120 Guaifenesin 1,200 MG BID 12/19 1000 AC 12/25 PO 2120 Losartan Potassium 50 MG BID 12/19 1000 AC 12/25 PO 2120 Magnesium Oxide 400 MG DAILY 12/19 1000 AC 12/25 PO 0908 Metoprolol Succinate 25 MG DAILY 12/19 1000 AC 12/25 PO 0907 Montelukast Sodium 10 MG AT BEDTIME 12/24 2200 AC 12/25 PO 2120 Nystatin 1 ELDA BID 12/25 1126 AC 12/25 TOP 2120 Omeprazole 20 MG DAILY AC 12/19 0700 AC 12/26 PO 0557 Oxycodone/ 1 TAB Q6P PRN 12/22 0245 AC 12/26 Acetaminophen PO 0557 Potassium Chloride 20 MEQ DAILY 12/19 1000 AC 12/25 PO 0909 Prednisone 40 MG DAILY 12/24 1013 AC 12/25 PO 0907 Rivaroxaban 15 MG 1700 12/24 1700 AC 12/25 PO 1729 Tiotropium [place] 1 PUF DAILY 12/24 1029 AC 12/25 INH 0908 Tramadol HCl 50 MG Q6P PRN 12/19 0015 AC 12/26 PO 0334 Trimethobenzamide HCl 200 MG 4 TIMES/DAY PRN 12/20 0452 AC IM Vital Signs & I&O Last 24 Hrs of Vitals and I&O: Vital Signs Date Time Temp Pulse Resp B/P B/P Pulse O2 O2 Flow FiO2 Mean Ox Delivery Rate 12/26 0545 97.8 87 19 120/72 93 12/26 0042 95 Room Air 12/25 2228 98.1 88 18 140/70 91 12/25 2120 98 134/70 12/25 2040 96 Room Air 12/25 1600 94 Room Air 12/25 1600 98.0 82 16 112/78 94 Room Air 12/25 1433 97.7 87 20 112/70 91 12/25 1132 92 Room Air 12/25 0908 98.0 80 14 124/82 12/25 0907 98.0 80 14 124/82 Intake & Output 12/26 1600 12/26 0800 12/26 0000 Intake Total 100 100 Output Total 800 300 Balance -700 -200 Intake, Oral 100 100 Number 1 Bowel Movements Output, Urine 800 300 Physical Exam General Appearance: no apparent distress, alert, awake Head: atraumatic, normal appearance Neck: supple Respiratory: improved crackles and wheezing Cardiovascular: irregularly irregular Gastrointestinal: normal bowel sounds, soft, non-tender Extremities: left lower extremity dressings and wound vac in place Skin: intact, normal color, warm/dry Impression/Plan Impression/Plan Impression/Plan: 1. History of recurrent bronchospasm requiring periodic steroid therapy. 2. Volume overload in the setting of transfusion x 2 units. CXR, consistent with pulmonary edema. Improved significantly clinically with diuresis. 3. Post traumatic large left lower extremity hematoma requiring I&D with acute blood loss anemia. 4. Atrial fibrillation. 5. History of diastolic dysfunction. Recommendations: * Continue with diuresis. * Monitor I & Os. * TRC evaluation for neb treatments around the clock. * Continue Symbicort. * Singulair 10 mg daily. * Mucinex 600 mg BID. * Oral Azithromycin for 5 days - to be completed. * Continue with slow prednisone taper. * DVT prophylaxis at all times.
[2017-12-26] MEDS ORDERED: XARELTO15 M1 PO ×2 (09:36→19:15)
--- NOTE | 2017-12-26 11:09 | PN- Att Addend ---
Attending Addendum Attending Brief Note 87-year-old white female was admitted with a huge painful hematoma on her leg that needed drainage also needed blood for blood loss anemia, also had an exacerbation of her bronchitis and hypocalcemia while in the hospital which has improved patient is off oxygen with good saturations her vital signs are stable. Patient is going home with a wound VAC, to follow with the wound center, cardiology pulmonary and myself. Resident to check with Dr. Stearns regarding the proper anticoagulation dose Intake & Output 12/26 1600 12/26 0400 12/25 1600 12/25 0400 12/24 1600 12/24 0400 Intake Total 100 100 680 480 730 830 Output Total 800 300 286 522 1773 Balance -700 -200 -230 80 -570 830 Intake, IV 130 Intake, Oral 100 100 680 480 730 700 Number 1 0 0 Bowel Movements Output, 10 Drainage Output, Urine 800 [phone] Current Medications Sig/Heena Start time Last Medication Dose Route Stop Time Status Admin Acetaminophen 650 MG Q8P PRN 12/19 0015 AC 12/20 PO 0921 Albuterol Sulfate 3 ML Q4 12/24 1400 AC 12/26 INH 0823 Aspirin Buffered 81 MG DAILY 12/19 1000 AC 12/26 PO 0951 Atorvastatin Calcium 20 MG QPM 12/19 2200 AC 12/25 PO 2120 Azithromycin 500 MG DAILY 12/24 1247 AC 12/26 PO 0950 Budesonide/ 2 PUF BID 12/19 1000 AC 12/26 Formoterol Fumarate INH 0952 Cholecalciferol 1,000 IU DAILY 12/19 1000 AC 12/26 PO 0950 Diltiazem HCl 120 MG DAILY 12/19 1000 AC 12/26 PO 0951 Fish Oil 1,050 MG BID 12/19 1000 AC 12/26 PO 0951 Fluticasone 2 SPRAY DAILY 12/19 1000 AC 12/26 Propionate MARCO 0952 Furosemide 40 MG BID 12/19 1000 AC 12/26 PO 0951 Guaifenesin 1,200 MG BID 12/19 1000 AC 12/26 PO 0951 Losartan Potassium 50 MG BID 12/19 1000 AC 12/26 PO 0951 Magnesium Oxide 400 MG DAILY 12/19 1000 AC 12/26 PO 0951 Metoprolol Succinate 25 MG DAILY 12/19 1000 AC 12/26 PO 0951 Montelukast Sodium 10 MG AT BEDTIME 12/24 2200 AC 12/25 PO 2120 Nystatin 1 ELDA BID 12/25 1126 12/26 TOP 0952 Omeprazole 20 MG DAILY AC 12/19 0700 AC 12/26 PO 0557 Oxycodone/ 1 TAB Q6P PRN 12/22 0245 12/26 Acetaminophen PO 0557 Potassium Chloride 20 MEQ DAILY 12/19 1000 AC 12/26 PO 0951 Prednisone 40 MG DAILY 12/24 1013 AC 12/26 PO 0951 Rivaroxaban 15 MG 1700 12/24 1700 AC 12/25 PO 1729 Tiotropium [place] 1 PUF DAILY 12/24 1029 AC 12/26 INH 0952 Tramadol HCl 50 MG Q6P PRN 12/19 0015 AC 12/26 PO 0952 Trimethobenzamide HCl 200 MG 4 TIMES/DAY PRN 12/20 0452 [facility] Laboratory Tests 12/25/17 0831: Anion Gap 15, Estimated GFR > 60, BUN/Creatinine Ratio 20.0, CBC w Diff NO MAN DIFF REQ, RBC 3.72 L, MCV 78.8 L, MCH 25.5 L, MCHC 32.3 L, RDW 18.2 H, MPV 8.2, Gran % 79.0 H, Lymphocytes % 14.9 L, Monocytes % 5.8, Eosinophils % 0.1, Basophils % 0.2, Absolute Granulocytes 7.4 H, Absolute Lymphocytes 1.4, Absolute Monocytes 0.5, Absolute Eosinophils 0, Absolute Basophils 0 12/24/17 0805: CBC w Diff NO MAN DIFF REQ, RBC 3.49 L, MCV 79.6 L, MCH 26.0 L, MCHC 32.7 L, RDW 17.9 H, MPV 7.9, Gran % 76.9 H, Lymphocytes % 13.8 L, Monocytes % 6.1, Eosinophils % 2.8, Basophils % 0.4, Absolute Granulocytes 8.2 H, Absolute Lymphocytes 1.5, Absolute Monocytes 0.7 H, Absolute Eosinophils 0.3, Absolute Basophils 0 Vital Signs Date Time Temp Pulse Resp B/P B/P Pulse O2 O2 Flow FiO2 Mean Ox Delivery Rate 12/26 950 97.8 88 16 120/72 12/26 0951 97.8 88 16 120/72 12/26 0800 94 Room Air 12/26 0545 97.8 87 19 120/72 93 12/26 0042 95 Room Air 12/25 2228 98.1 88 18 140/70 91 02/ 2120 98 134/70 02/ 2040 96 Room Air 12/25 1600 94 Room Air 12/25 1600 98.0 82 16 112/78 94 Room Air 12/25 1433 97.7 87 20 112/70 91 02/ 1132 92 Room Air
[2017-12-26 14:27] VITALS: BP 112/60
== END 2017-12-26 19:30 | disposition home health service (06) | DRG 571 ==
LOC: ERH 15:40 → 2NA 22:42 → ERHI 22:42 → ENRESERV 12-19 00:02 → 2NA 12-19 00:52 → ENTRNSPT 12-22 14:36 → EDTRNSPTSTS 12-22 15:02 → CMPTRNSPT 12-22 15:07 → ENPENDDIS 12-26 16:53 → 2NA 12-26 19:30
PROVIDERS: Hospitalist; Internal Medicine; Orthopaedic Surgery; Physician Assistant; Student in an Organized Health Care Education/Training Program
PROC: 0HBLXZZ Excision of Left Lower Leg Skin, External Approach (ICD-10-PCS; 2017-12-19)
PROC: 0JCP0ZZ Extirpation of Matter from Left Lower Leg Subcutaneous Tissue and Fascia, Open Approach (ICD-10-PCS; 2017-12-19)
PROC: 30233N1 Transfusion of Nonautologous Red Blood Cells into Peripheral Vein, Percutaneous Approach (ICD-10-PCS; 2017-12-21)
PROC: 0JCP0ZZ Extirpation of Matter from Left Lower Leg Subcutaneous Tissue and Fascia, Open Approach (ICD-10-PCS; principal; 2017-12-22)
PROC: 0JBP0ZZ Excision of Left Lower Leg Subcutaneous Tissue and Fascia, Open Approach (ICD-10-PCS; 2017-12-22)
DX: S80.12XA Contusion of left lower leg, initial encounter (principal); I50.32 Chronic diastolic (congestive) heart failure; E87.71 Transfusion associated circulatory overload; I11.0 Hypertensive heart disease with heart failure; D62 Acute posthemorrhagic anemia; E83.51 Hypocalcemia; I27.29 Other secondary pulmonary hypertension; L03.116 Cellulitis of left lower limb; J44.1 Chronic obstructive pulmonary disease with (acute) exacerbation; I48.2 Chronic atrial fibrillation; I36.1 Nonrheumatic tricuspid (valve) insufficiency; Z79.01 Long term (current) use of anticoagulants; D50.9 Iron deficiency anemia, unspecified; J98.01 Acute bronchospasm; Z85.110 Personal history of malignant carcinoid tumor of bronchus and lung; Z92.3 Personal history of irradiation; E04.2 Nontoxic multinodular goiter; K44.9 Diaphragmatic hernia without obstruction or gangrene; K21.9 Gastro-esophageal reflux disease without esophagitis; I25.10 Atherosclerotic heart disease of native coronary artery without angina pectoris; R23.8 Other skin changes; E78.5 Hyperlipidemia, unspecified; M19.90 Unspecified osteoarthritis, unspecified site; I35.0 Nonrheumatic aortic (valve) stenosis; I34.2 Nonrheumatic mitral (valve) stenosis; I34.0 Nonrheumatic mitral (valve) insufficiency; W22.8XXA Striking against or struck by other objects, initial encounter; Y92.009 Unspecified place in unspecified non-institutional (private) residence as the place of occurrence of the external cause; R79.1 Abnormal coagulation profile
CPT/HCPCS: 2NASP; ERO; 36415; 71045; 76881; 82436; 86920; 87040; 88304; 93005; 93010; 96374; 96375; 97116-GO; 97161-GP; 97530-GO; J0131; J0456; J1644; J1940; J2270; J3250; J3490; J7060; P9016

== ENCOUNTER 2018-01-07 13:39 | Inpatient (IN) | payer OTHER, MEDICARE ==
[~2018-01-07] VITALS: Ht 157.5 cm; Wt 76.7 kg
[~2018-01-07 13:39] MED LIST changes: +AZITHROMYCIN500 M3 PO; +VITAMIN D31000 UNI1 PO
--- NOTE | 2018-01-07 15:22 | ED UPPER/LOWER EXTREMITY COMPL ---
History of Present Illness General Chief Complaint: General Adult Stated Complaint: SENT BY DR CRISTINA FOR ABNORMAL LABS Source: patient, family, old records Exam Limitations: no limitations Vital Signs & Intake/Output Vital Signs & Intake/Output Vital Signs Date Time Temp Pulse Resp B/P B/P Pulse O2 O2 Flow FiO2 Mean Ox Delivery Rate 01/08 1054 Room Air 01/08 1054 97 Room Air 01/08 0857 68 20 138/76 01/08 0857 138/76 01/08 0648 97.7 68 20 138/76 98 Room Air 01/08 0000 Room Air 01/07 2156 Room Air 01/07 1838 98.2 81 18 107/66 100 Room Air 01/07 1623 Room Air 01/07 1348 96.7 109 20 111/64 97 Room Air ED Intake and Output 01/08 0000 01/07 1200 Intake Total 240 Output Total Balance 240 Intake, Oral 240 Patient 169 lb Weight Weight Reported by Patient Measurement Method Allergies Coded Allergies: adhesive tape (RASH ON SKIN THAT IT TOUCHES 10/22/17) iodine (DAVIS SKIN WHERE APPLIED 10/22/17) povidone-iodine (DAVIS SKIN WHERE IT IS APPLIED 10/22/17) shellfish derived (HIVES ALL OVER 10/22/17) propoxyphene (GI UPSET 10/22/17) Reconcile Medications Albuterol Sulfate 2.5 MG/3 ML (0.083 %) VIAL.NEB 1 Vial INH/JULIO TID COPD ( Reported) Albuterol Sulfate (Ventolin Hfa) 90 MCG HFA.AER.AD 2 PUF INH Q4-6 PRN PRN SHORTNESS OF BREATH Aspirin (Ecotrin*) 81 MG TABLET.DR 1 TAB PO DAILY HEART (Reported) Atorvastatin Calcium (Lipitor) 20 MG TABLET 1 TAB PO QPM CHOLESTEROL ( Reported) Budesonide/Formoterol Fumarate (Symbicort 160-4.5 Mcg Inhaler) 160 MCG-4.5 MCG/ ACTUATION HFA.AER.AD 2 PUF INH BID COPD (Reported) Cholecalciferol (Vitamin D3) (Vitamin D3) 1,000 UNIT CAPSULE 1 CAP PO DAILY HEALTH SUPPLEMENT (Reported) Diltiazem HCl (Diltiazem 24HR Cd) 120 MG CAP.ER.24H 1 CAP PO DAILY HEART/BP ( Reported) Esomeprazole Magnesium (Nexium) 20 MG CAPSULE.DR 1 CAP PO DAILY ACID REFLUX ( Reported) Fluticasone Propionate 50 MCG/ACTUATION SPRAY.SUSP 2 SPRAY NASB DAILY ALLERGIES (Reported) Furosemide 40 MG TABLET 1 TAB PO BID DIURETIC (Reported) Guaifenesin (Mucinex) 1,200 MG TAB.ER.12H 1 TAB PO BID ALLERGIES (Reported) Losartan Potassium 100 MG TABLET 0.5 TAB PO BID BP (Reported) Magnesium Oxide 400 MG TABLET 1 TAB PO DAILY SUPPLEMENT (Reported) Metoprolol Succinate 25 MG TAB 1 TAB PO DAILY BP (Reported) [place]-3 Acid Ethyl Esters (Lovaza) 1 GRAM CAPSULE 1 CAP PO BID CHOLESTEROL/ TRIGLYCERIDES (Reported) Oxycodone HCl/Acetaminophen (Oxycodone-Acetaminophen 10-325) 10 MG-325 MG TABLET 1 TAB PO Q6H PRN PAIN (Reported) Potassium Chloride 20 MEQ TAB.ER.PRT 1 TAB PO DAILY SUPPLEMENT (Reported) Rivaroxaban (Xarelto) 15 MG TABLET 1 TAB PO DAILY afib . Triage Note: PT SENT TO ED BY DR CRISTINA FOR "HIGH BLOOD COUNT" PT HAD LABS THIS AM WHICH REVEALED A WBC OF 22.2. PT STATES SHE HAS AN INFECTION TO LLE. HAS BEEN GOING TO WOUND CLINIC. Triage Nurses Notes Reviewed? yes Onset: Abrupt Duration: day(s): (1) Timing: recent history Severity: mild Pain/Injury Location: Left: Leg. No Modifying Factors: none HPI: 87 year old female presents to [facility] ER for left leg pain, erythema and reported high WBC which was performed earlier today. She states that she was at the wound care center this morning and they were concerned about infection. She had some blood work done adn was called back this afternoon adn told to be admitted for IV abx and that her WBC was very high. She denies any fever, chills, confusion, vomiting, diarrhea. Past History Travel History Traveled to [place] past 21 day No Medical History Any Pertinent Medical History? 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 History of MRSA: No History of VRE: No History of CDIFF: No Influenza Vaccine: 08/03/17 Tetanus Vaccine: 08/06/17 Surgical History Surgical History: appendectomy, cholecystectomy, hip replacement, hysterectomy, status post pulmonary lobectomies lobectomies Psychosocial History Who do you live with Spouse Services at Home None What is your primary language Maltese Tobacco Use: Never used ETOH Use: denies use Illicit Drug Use: denies illicit drug use Family History Family History, If Any: BROTHER FH: heart attack DAUGHTER FH: breast cancer Relation not specified for: FH: throat cancer Hx Contributory? No Review of Systems Review of Systems Constitutional: Denies: chills, fever. EENTM: Reports: no symptoms. Respiratory: Denies: cough, short of breath, sputum production. Cardiovascular: Denies: chest pain, palpitations. Gastrointestinal/Abdominal: Denies: abdominal pain. Genitourinary: Reports: no symptoms. Musculoskeletal: Reports: see HPI (leg pain, wound). Skin: Reports: no symptoms. Neurological/Psychological: Denies: confusion. Hematologic/Endocrine: Denies: bruising, bleeding, polyuria, polydipsia. Immunological: Denies: splenectomy. All Other Systems: Reviewed and Negative Physical Exam Physical Exam General Appearance: well developed/nourished, alert, awake Head: atraumatic, normal appearance Eyes: Bilateral: normal appearance, PERRL, EOMI. Ears, Nose, Throat: normal pharynx, normal ENT inspection, hearing grossly normal Neck: normal inspection, supple, full range of motion Cardiovascular/Respiratory: normal breath sounds, normal peripheral pulses, regular rate/rhythm Peripheral Pulses: 2+ radial (R), 2+ radial (L) Gastrointestinal: SOFT NONTENDER OBESE Back: normal inspection, normal range of motion Leg Left: SHALLOW BASED OPEN WOUND 8X8CM WITH MILD SURROUNDING EDEMA PROXIMAL AREA OF ERYTHEMA JUST DISTAL TO LEFT KNEE Leg Right: normal range of motion, normal inspection Hip Left: normal range of motion, normal inspection Hip Right: normal range of motion Knee Left: normal range of motion, normal inspection Knee Right: normal range of motion, normal inspection Foot Left: normal inspection, normal range of motion Foot Right: normal inspection Neurologic/Tendon: normal sensation, normal motor functions, normal tendon functions ED Sepsis Exam Date of Focused Sepsis Exam: 01/07/18 Time of Focused Sepsis Exam: 1810 Sepsis Cardiac Exam: Regular Rate/Rhythm Sepsis Resp Exam: CTA Sepsis Cap Refill Exam: <2 Sec Sepsis Peripheral Pulse Exam: Normal Sepsis Peripheral Pulse Location: Radial Sepsis Skin Color Exam: Normal for Ethnicity Skin Temp/Moisture Exam: Warm/Dry Progress Differential Diagnosis: cellulitis, WOUND INFECTION, NEC FASCIITIS Plan of Care: Orders Procedure Date/time Status LACTIC ACID 01/09 0600 Active CBC WITHOUT DIFFERENTIAL 01/09 0600 Active BASIC ELECTROLYTES PLUS BUN&CR 01/09 0600 Active Heart Healthy Diet 01/08 B Active RT: Evaluation 01/08 1051 Active Wound Care/Dressing 01/08 1029 Active Skin/Pressure Ulcer Assess (Sk 01/08 0933 Active CBC WITHOUT DIFFERENTIAL 01/08 0600 Complete BASIC ELECTROLYTES PLUS BUN&CR 01/08 0600 Complete TRC EVALUATION (GEN) 01/08 UNK Complete THERAPIST ORDERS 01/[address] LOWER EXT WO IV CONTRAST 01/08 UNK Active Vital Signs 01/07 2150 Active Teach/Educate 01/07 2150 Active Pain Treatment and Response 01/07 2150 Active Nutritional Intake, Monitor 01/07 2150 Active Isolation 01/07 2150 Active Intake & Output 01/07 2150 Active Patient Care Conference 01/07 2150 Active Activity/Ambulation 01/07 2150 Active Pathway - chart 01/07 2046 Active House Staff 01/07 2046 Active Code Status 01/07 2046 Active LACTIC ACID 01/07 1657 Complete Patient Data 01/07 1644 Active ED Holding Orders 01/07 1632 Active Admit to inpatient 01/07 1632 Active Vital Signs 01/07 1632 Active Intake & Output 01/07 1623 Active BLOOD CULTURE 01/07 1357 Active PARTIAL THROMBOPLASTIN TIME 01/07 1357 Complete PROTHROMBIN TIME 01/07 1357 Complete LACTIC ACID 01/07 1357 Complete EKG 01/07 1357 Active VTE Mechanical Prophylaxis 01/07 UNK Active Current Medications Sig/Heena Start time Last Medication Dose Stop Time Status Admin Acetaminophen 650 MG Q6P PRN 01/08 1145 AC 01/08 (Tylenol) 1147 Aspirin Buffered 81 MG DAILY 01/08 1000 AC 01/08 (Ecotrin) 0857 Diltiazem HCl 120 MG DAILY 01/08 1000 AC 01/08 (Cardizem CD) 0857 Enoxaparin Sodium 40 MG DAILY 01/08 1000 AC 01/08 (Lovenox) 0856 Fluticasone 2 SPRAY DAILY 01/08 1000 AC 01/08 Propionate 0856 (Flonase) Furosemide 40 MG BID 01/08 1000 AC 01/08 (Lasix) 0857 Losartan Potassium 50 MG BID 01/08 1000 AC 01/08 (Cozaar) 0857 Metoprolol Succinate 25 MG DAILY 01/08 1000 AC 01/08 (Toprol XL) 0857 Potassium Chloride 20 MEQ DAILY 01/08 1000 AC 01/08 (K-Dur) 0857 Oxycodone HCl 5 MG Q6P PRN 01/08 0915 AC 01/08 (Roxicodone) 0915 Omeprazole 20 MG DAILY AC 01/08 0700 AC 01/08 (Prilosec) 0605 Albuterol Sulfate 3 ML TID 01/07 2200 AC 01/08 (Proventil) 1051 Atorvastatin Calcium 20 MG QPM 01/07 2200 AC 01/07 (Lipitor) 2323 Budesonide/ 2 PUF BID 01/07 2200 AC 01/08 Formoterol Fumarate 0856 (Symbicort) Albuterol Sulfate 2 PUF Q4-6 PRN PRN 01/07 2100 AC (Ventolin) Laboratory Tests 01/08/18 0656: Anion Gap 10, Estimated GFR > 60, BUN/Creatinine Ratio 25.7 H, CBC w Diff NO MAN DIFF REQ, RBC 3.57 L, MCV 77.7 L, MCH 25.3 L, MCHC 32.5 L, RDW 18.1 H, MPV 8.0, Gran % 90.8 H, Lymphocytes % 3.5 L, Monocytes % 5.7, Eosinophils % 0, Basophils % 0, Absolute Granulocytes 15.6 H, Absolute Lymphocytes 0.6 L, Absolute Monocytes 1.0 H, Absolute Eosinophils 0, Absolute Basophils 0 01/07/18 1710: Lactic Acid 2.4 H 01/07/18 1531: Lactic Acid 2.5 H, PT 19.5 H, INR 1.87 H, APTT 35 Microbiology 01/07 1531 BLOOD: Blood Culture - RES 01/07 1520 BLOOD: Blood Culture - RES 5:[address] PURDY PAGED. 5:55 PM D/W DR PURDY, AIR SEEN ON XRAY. WILL HAVE PA EVALUTE PATIENT IN ED. Diagnostic Imaging: Viewed by Me: Radiology Read. Discussed w/RAD: Radiology Read. Radiology Impression: PATIENT: THOMAS HDZ PRESENT AGE: 87 PATIENT ACCOUNT NO: [id number] : 30 LOCATION: [facility] ORDERING PHYSICIAN: Carissa Walker MD SERVICE DATE: 01/07/18162 EXAM TYPE: RAD - XRY -TIBIA-FIBULA, LEFT EXAMINATION: XR TIBIA AND FIBULA, LEFT CLINICAL INFORMATION: Left leg wound infection. COMPARISON: 12/14/2017. TECHNIQUE: AP and lateral views of the left tibia and fibula were obtained. FINDINGS: There are no fractures or dislocations. There is no ankle joint effusion. There are small calcaneal spurs. There is no bony destruction. There is soft tissue swelling overlying the distal tibia with subcutaneous gas present. There is no knee joint effusion. There is moderate narrowing to the medial compartment. IMPRESSION: Soft tissue swelling overlying the distal tibia with subcutaneous gas indicative of either a penetrating injury or gas-forming organism. DICTATED BY: Peter Lopez MD DATE/TIME DICTATED:01/07/181703 MANAGER PACU:GLADYS DATE/TIME TRANSCRIBED:01/07/181703 CONFIDENTIAL, DO NOT COPY WITHOUT APPROPRIATE AUTHORIZATION. <Electronically signed in Other Vendor System> SIGNED BY: Peter Lopez MD 01/07/181708 Initial ED EKG: AFIB (IN 90\\), pacemaker rhythm (90'S) Prior EKG: unchanged Departure Departure Time of Disposition: 1632 Disposition: STILL A PATIENT Condition: Stable Clinical Impression Primary Impression: Cellulitis Secondary Impressions: Wound infection Referrals: Jinny HALL,Darian Lopez MD,Antonio (PCP/Family) Best HALL,Anthony Marie Departure Forms: Customer Survey General Discharge Information Admission Note Spoke With: Anotnio Lopez MD Documentation of Exam: Documentation of any treatments & extenuating circumstances including Concerns Regarding Discharge (functional status, medication knowledge or non-compliance, living conditions, etc.) that warrant an admission rather than observation: [IV ABX, WOUND CARE, SURGICAL CONSULTATION DR PURDY, F/U CULTURES, REPEAT LACTIC]
[2018-01-07 15:49] LABS: PT 19.5 SEC (9.4-12.5); PTT 35 SEC (25-37)
--- NOTE | 2018-01-07 17:09 | RADIOLOGY REPORT ---
EXAMINATION: XR TIBIA AND FIBULA, LEFT CLINICAL INFORMATION: Left leg wound infection. COMPARISON: 12/14/2017. TECHNIQUE: AP and lateral views of the left tibia and fibula were obtained. FINDINGS: There are no fractures or dislocations. There is no ankle joint effusion. There are small calcaneal spurs. There is no bony destruction. There is soft tissue swelling overlying the distal tibia with subcutaneous gas present. There is no knee joint effusion. There is moderate narrowing to the medial compartment. IMPRESSION: Soft tissue swelling overlying the distal tibia with subcutaneous gas indicative of either a penetrating injury or gas-forming organism.
[2018-01-07] MEDS ORDERED: OXYCODONE-ACET1 EAC1 PO (17:11)
--- NOTE | 2018-01-07 18:21 | History & Physical ---
Luis Miguel Chambers MD 01/07/18 2430: General Information and HPI MD Statement: I have seen and personally examined THOMAS HDZ and documented this H&P. The patient is a 87 year old F who presented with a patient stated chief complaint of abnormal labs. Source of Information: patient, family, old records Exam Limitations: no limitations History of Present Illness: 87 year old female with past medical history of asthma, COPD, 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), lung nodule s/p radiation c/b pneumonitis, multinodular thyroid gland, hiatal hernia, GERD, HTN/mild LVH,/diastolic dysfunction, CAD, and atrial fibrillation on Xarelto with recent admission for LLE hematoma s/p I+D with wound vac/care and acute blood loss anemia requiring transfusion of two units prbc. Her hospital course was complicated by acute hypoxemic respiratory failure with tachypnea, wheezing, and hypoxia to 86% SpO2 on room air at rest. The patient was discharged on azithromycin and predisone taper for COPD exacerbation. The patient was sent in for evaluation today after having blood work down at the wellness clinic and being found to have leukocytosis. The patient has been doing well at home recently without complaints. She has visiting health services Friday and Friday and follows up at wound care on Fridays. She has been using the wound vac and ambulating at home. She has not been complaining of significant warmth, edema, tenderness, or purulent drainage from the left leg. She denies any fevers, or chills. Her breathing is significantly improved after discharge. She was sent in for leukocytosis and met SIRS criteria consistent with sepsis from left lower extremity cellulitis. She was given crystalloids and intravenous antibiotics in the ED. Allergies/Medications Allergies: Coded Allergies: adhesive tape (RASH ON SKIN THAT IT TOUCHES 10/22/17) iodine (DAVIS SKIN WHERE APPLIED 10/22/17) povidone-iodine (DAVIS SKIN WHERE IT IS APPLIED 10/22/17) shellfish derived (HIVES ALL OVER 10/22/17) propoxyphene (GI UPSET 10/22/17) Home Med list Albuterol Sulfate 2.5 MG/3 ML (0.083 %) VIAL.NEB 1 Vial INH/JULIO TID COPD ( Reported) Albuterol Sulfate (Ventolin Hfa) 90 MCG HFA.AER.AD 2 PUF INH Q4-6 PRN PRN SHORTNESS OF BREATH Aspirin (Ecotrin*) 81 MG TABLET.DR 1 TAB PO DAILY HEART (Reported) Atorvastatin Calcium (Lipitor) 20 MG TABLET 1 TAB PO QPM CHOLESTEROL ( Reported) Budesonide/Formoterol Fumarate (Symbicort 160-4.5 Mcg Inhaler) 160 MCG-4.5 MCG/ ACTUATION HFA.AER.AD 2 PUF INH BID COPD (Reported) Cholecalciferol (Vitamin D3) (Vitamin D3) 1,000 UNIT CAPSULE 1 CAP PO DAILY HEALTH SUPPLEMENT (Reported) Diltiazem HCl (Diltiazem 24HR Cd) 120 MG CAP.ER.24H 1 CAP PO DAILY HEART/BP ( Reported) Esomeprazole Magnesium (Nexium) 20 MG CAPSULE.DR 1 CAP PO DAILY ACID REFLUX ( Reported) Fluticasone Propionate 50 MCG/ACTUATION SPRAY.SUSP 2 SPRAY NASB DAILY ALLERGIES (Reported) Furosemide 40 MG TABLET 1 TAB PO BID DIURETIC (Reported) Guaifenesin (Mucinex) 1,200 MG TAB.ER.12H 1 TAB PO BID ALLERGIES (Reported) Losartan Potassium 100 MG TABLET 0.5 TAB PO BID BP (Reported) Magnesium Oxide 400 MG TABLET 1 TAB PO DAILY SUPPLEMENT (Reported) Metoprolol Succinate 25 MG TAB 1 TAB PO DAILY BP (Reported) [place]-3 Acid Ethyl Esters (Lovaza) 1 GRAM CAPSULE 1 CAP PO BID CHOLESTEROL/ TRIGLYCERIDES (Reported) Oxycodone HCl/Acetaminophen (Oxycodone-Acetaminophen 10-325) 10 MG-325 MG TABLET 1 TAB PO Q6H PRN PAIN (Reported) Potassium Chloride 20 MEQ TAB.ER.PRT 1 TAB PO DAILY SUPPLEMENT (Reported) Rivaroxaban (Xarelto) 15 MG TABLET 1 TAB PO DAILY afib . 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 spouse Services at Home: None Primary Language: Niuean ETOH Use: denies use Illicit Drug Use: denies illicit drug use Living Will? yes Functional Ability ADLs Independent: dressing, eating, toileting, bathing. Ambulation: independent IADLs Independent: shopping, housework, finances, food prep, telephone, transportation , medication admin. Review of Systems Review of Systems Constitutional: Reports: no symptoms. EENTM: Reports: no symptoms. Cardiovascular: Reports: no symptoms. Respiratory: Reports: no symptoms. GI: Reports: no symptoms. Genitourinary: Reports: no symptoms. Musculoskeletal: Reports: no symptoms. Skin: Reports: no symptoms. Neurological/Psychological: Reports: no symptoms. Hematologic/Endocrine: Reports: no symptoms. Immunologic/Allergic: Reports: no symptoms. All Other Systems: Reviewed and Negative Exam & Diagnostic Data Last 24 Hrs of Vital Signs/I&O Vital Signs Date Time Temp Pulse Resp B/P B/P Pulse O2 O2 Flow FiO2 Mean Ox Delivery Rate 01/07 1838 98.2 81 18 107/66 100 Room Air 01/07 1623 Room Air 01/07 1348 96.7 109 20 111/64 97 Room Air Intake & Output 01/07 1600 01/07 0800 01/07 0000 Intake Total Output Total Balance Patient 76.657 kg Weight Weight Reported by Patient Measurement Method Physical Exam General Appearance Alert, Oriented X3, Cooperative, No Acute Distress Skin Temp/Moisture Exam: Warm/Dry Cardiovascular irregularly irregular 2/6 systolic Abdomen Normal Bowel Sounds, Soft, No Tenderness, No Masses Extremities No Clubbing, No Cyanosis, Normal Pulses, trace bilateral lower extremity edema, LLE wound with good granulation tissue Sepsis Peripheral Pulse Location: Radial Sepsis Peripheral Pulse Exam: Normal Sepsis Cap Refill Exam: <2 Sec Diagnostic Data EKG Results atrial fibrillation Other Results Soft tissue swelling overlying the distal tibia with subcutaneous gas indicative of either a penetrating injury or gas-forming organism Assessment/Plan Assessment: 87 year old female with past medical history of asthma, COPD, 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 Sepsis: secondary to left lower extremity cellulitis Leukocytosis, tachycardia, lactic acidosis on admission Treated with crystalloid and intravenous Unasyn Confounded by recent prednisone and atrial fibrillation Trend lactic acid Continue unasyn pending infectious disease consultation LLE wound: Continue local wound care Soft tissue swelling overlying the distal tibia with subcutaneous gas Consult surgery for possible infectious requiring debridement Wound care consultation Atrial fibrillation: Hold Xarelto for possible repeat debridement with surgery Continue cardizem and metoprolol for rate control CHF/mild cad: HFpEF echo lvef Continue beta tao, acei, aspirin and statin COPD: not oxygen dependent TRC evaluation for nebulized albuterol Continue symbicort Regular diet DVT ppx-on xarelto, ALPs while Xarelto held Full code As Ranked By This Provider Problem List: 1. Wound infection 2. Cellulitis 3. Anemia Core Measures/Misc (08/10) Acute Coronary Syndrome ACS Diagnosis: No Congestive Heart Failure Congestive Heart Failure Diagnosis No Cerebrovascular Accident CVA/TIA Diagnosis: No VTE (View Protocol) VTE Risk Factors Age>40 No Mechanical VTE Prophylaxis d/t Medical Contraindication No VTE Pharm Prophylaxis d/t Medical Contraindication Sepsis (View protocol) Sepsis Present: No Tesfaye HALL,[facility] 01/07/18 2153: Resident Review Statement Resident Statement: examined this patient, discussed with help desk internship, agreed with help desk internship Other Findings: 87 year old female with multiple PMG including put not limited to atrial fibrillation on Xarelto with recent admission for LLE hematoma s/p I+D with wound vac/care. She was discharged on abx and steroid taper for COPD exacerbation. Today the patient offer no complaint and present because she was found to have leukocytosis at the wellness clinic blood work up . The patient was following as instructed, she believes that her wound is better than previous admission. She denies any warmth, worsening erythema, edema, tenderness, or purulent drainage from the left leg wound. She denies any fevers, or chills. Plan * she will be admitted to [facility] floor * repeat CBC in am, leukocytosis can be 2/2 recent steroid * trend lactic acid/IV fluid * wound consult * hold night does of AC, for possible debridement in am * FC * heart healthy diet * DVT ppx with ALPS on left leg and lovnox
--- NOTE | 2018-01-07 19:02 | PN- Att Addend ---
Attending Addendum Attending Brief Note 87-year-old female dealing with his chronic open area on her left leg rolling an original hematoma and she follows with the wound clinic. Still being evaluated, was noted that her white count is still elevated, patient had been on steroids too, in the ER she had x-rays of the left leg showed soft tissue swelling over laying the distal tibia with sub cutaneous gas indicative either penetrating injury or gas forming organism. Will monitor surgery and infectious diseases input to decide what other treatments are needed. Laboratory Tests 01/07/18 1710: Lactic Acid 2.4 H 01/07/18 1531: Lactic Acid 2.5 H, PT 19.5 H, INR 1.87 H, APTT 35 Laboratory Tests 01/07/18 1710: Lactic Acid 2.4 H 01/07/18 1531: Lactic Acid 2.5 H, PT 19.5 H, INR 1.87 H, APTT 35
[2018-01-08 06:48] VITALS: BP 138/76
--- NOTE | 2018-01-08 08:27 | PN- Housestaff ---
Subjective Follow-up For: sepsis wound infection Subjective: patient is complaining of some pain after a dressing change this morning afebrile, leukocytosis improving no other complaints Review of Systems Constitutional: Reports: see HPI. Objective Last 24 Hrs of Vital Signs/I&O Vital Signs Date Time Temp Pulse Resp B/P B/P Pulse O2 O2 Flow FiO2 Mean Ox Delivery Rate 01/08 1054 Room Air 01/08 1054 97 Room Air 01/08 0857 68 20 138/76 01/08 0857 138/76 01/08 0648 97.7 68 20 138/76 98 Room Air 01/08 0000 Room Air 01/07 2156 Room Air 01/07 1838 98.2 81 18 107/66 100 Room Air 01/07 1623 Room Air 01/07 1348 96.7 109 20 111/64 97 Room Air Intake & Output 01/08 1600 01/08 0800 01/08 0000 Intake Total 240 240 Output Total Balance 240 240 Intake, Oral 240 240 Number 1 Bowel Movements Patient 76.657 kg Weight Weight Reported by Patient Measurement Method Physical Exam General Appearance: Alert, Oriented X3, Cooperative, No Acute Distress Cardiovascular: irregularly irregular Lungs: diminished bibasilar but clear to auscultation Abdomen: Normal Bowel Sounds, Soft, No Tenderness, No Masses Extremities: LLE wound with good granulation tissue, no warmth or discharge or surrounding erythema Current Medications: Current Medications Sig/Heena Start time Last Medication Dose Route Stop Time Status Admin Acetaminophen 650 MG Q6P PRN 01/08 1145 AC 01/08 PO 1147 Acetaminophen 325 MG Q6P PRN 01/08 0915 DC PO Acetaminophen 650 MG ONCE ONE 01/07 2230 DC 01/07 PO 01/07 2231 2227 Albuterol Sulfate 3 ML TID 01/07 2200 AC 01/08 INH 1051 Albuterol Sulfate 2 PUF Q4-6 PRN PRN 01/07 2100 AC INH Ampicillin Sodium/ 0 .STK-MED ONE 01/07 1644 DC Sulbactam Sodium .ROUTE Ampicillin Sodium/ 3,000 MG ONCE ONE 01/07 1615 DC 01/07 Sulbactam Sodium IV 01/07 1644 1645 Sodium Chloride 100 ML Aspirin Buffered 81 MG DAILY 01/08 1000 AC 01/08 PO 0857 Atorvastatin Calcium 20 MG QPM 01/07 2200 AC 01/07 PO 2323 Budesonide/ 2 PUF BID 01/07 2200 AC 01/08 Formoterol Fumarate INH 0856 Diltiazem HCl 120 MG DAILY 01/08 1000 AC 01/08 PO 0857 Enoxaparin Sodium 40 MG DAILY 01/08 1000 AC 01/08 SC 0856 Fluticasone 2 SPRAY DAILY 01/08 1000 AC 01/08 Propionate MARCO 0856 Furosemide 40 MG BID 01/08 1000 AC 01/08 PO 0857 Losartan Potassium 50 MG BID 01/08 1000 AC 01/08 PO 0857 Metoprolol Succinate 25 MG DAILY 01/08 1000 AC 01/08 PO 0857 Morphine Sulfate 0 .STK-MED ONE 01/07 191 DC .ROUTE Morphine Sulfate 2 MG ONCE ONE 01/07 1900 DC 01/07 IV 01/07 190 190 Omeprazole 20 MG DAILY AC 01/08 0700 AC 01/08 PO 0605 Oxycodone HCl 5 MG Q6P PRN 01/08 0915 AC 01/08 PO 0915 Potassium Chloride 20 MEQ DAILY 01/08 1000 AC 01/08 PO 0857 Sodium Chloride 1,000 ML BOLUS ONE 01/07 1845 DC 01/07 IV 01/07 194 184 Sodium Chloride 1,000 ML BOLUS ONE 01/07 1845 DC 01/07 IV 01/07 194 1857 Last 24 Hrs of Lab/Jem Results Last 24 Hrs of Labs/Mics: Laboratory Tests 01/08/18 0656: Anion Gap 10, Estimated GFR > 60, BUN/Creatinine Ratio 25.7 H, CBC w Diff NO MAN DIFF REQ, RBC 3.57 L, MCV 77.7 L, MCH 25.3 L, MCHC 32.5 L, RDW 18.1 H, MPV 8.0, Gran % 90.8 H, Lymphocytes % 3.5 L, Monocytes % 5.7, Eosinophils % 0, Basophils % 0, Absolute Granulocytes 15.6 H, Absolute Lymphocytes 0.6 L, Absolute Monocytes 1.0 H, Absolute Eosinophils 0, Absolute Basophils 0 01/07/18 1710: Lactic Acid 2.4 H 01/07/18 1531: Lactic Acid 2.5 H, PT 19.5 H, INR 1.87 H, APTT 35 Microbiology 01/07 1531 BLOOD: Blood Culture - RES 01/07 1520 BLOOD: Blood Culture - RES Assessment/Plan Assessment: 87 year old female with past medical history of asthma, COPD, 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 Sepsis: secondary to left lower extremity cellulitis Leukocytosis, tachycardia, lactic acidosis on admission Treated with crystalloid and intravenous Unasyn Confounded by recent prednisone and atrial fibrillation Trend lactic acid Discontinue Unasyn pending infectious disease consultation LLE wound: Continue local wound care Soft tissue swelling overlying the distal tibia with subcutaneous gas Consult surgery for possible infectious requiring debridement Obtain CT LLE to further evaluate wound emphysema Wound care consultation Atrial fibrillation: Hold Xarelto for possible repeat debridement with surgery Continue cardizem and metoprolol for rate control CHF/mild cad: HFpEF echo lvef Continue beta tao, acei, aspirin and statin COPD: not oxygen dependent TRC evaluation for nebulized albuterol Continue symbicort Regular diet DVT ppx-on xarelto, ALPs while Xarelto held Full code Problem List: 1. A-fib 2. Wound infection 3. Cellulitis Pain Ratin Pain Location: LLE Pain Goal: Pain 4 or less Pain Plan: prn Tomorrow's Labs & Rationales: cbc, bep, lactic acid
[2018-01-08 08:33] LABS: ABSOLUTE BASOPHIL COUNT 0 /CUMM (0.0-0.2); ABSOLUTE EOSINOPHIL COUNT 0 /CUMM (0.0-0.7); ABSOLUTE GRANULOCYTE CT 15.6 /CUMM (1.4-6.5); ABSOLUTE LYMPH COUNT 0.6 /CUMM (1.2-3.4); BASOPHIL % 0 % (0.0-2.0); EOSINOPHIL % 0 % (0-5); HEMATOCRIT 27.7 % (37-47); MEAN CORPUSCULAR HGB 25.3 PG (27.0-31.0); MEAN CORPUSCULAR HGB CONC 32.5 G/DL (33.0-37.0); MEAN CORPUSCULAR VOLUME 77.7 FL (81.0-99.0); PLATELET COUNT 371 /CUMM (130-400); RBC DISTRIBUTION WIDTH 18.1 % (11.5-14.5); RED BLOOD CELL CT 3.57 /CUMM (4.20-5.40); WHITE BLOOD CELL COUNT 17.1 /CUMM (4.8-10.8)
[2018-01-08 09:20] LABS: GRANULOCYTE % 90.8 % (42.2-75.2)
--- NOTE | 2018-01-08 09:51 | Cons- General Surgery ---
General Information and HPI Consulting Request Date of Consult: 01/07/18 Requested By: Antonio Lopez MD History of Present Illness: CC: Consult for necrotizing fasciitis HPI: 87-year-old nondiabetic nonsmoker with a medical history including A. fib on Xarelto, valvular heart disease COPD remote history of bilateral lower lobe resections for 2 different lung cancers over 10 years ago, radiation pneumonitis. Last month she had bumped her right lower leg sustained a hematoma in part related to the effects of Xarelto this was surgically evacuated by my colleague on 12/22/2017 and since then she's been caring for it at home and visiting the wound care clinic. Earlier this morning while at the clinic she noted some more pain they noted some new erythema labs revealed white blood cell count over 20 so she was referred to the emergency room. I'm examining her in the emergency room this evening she is comfortable no shortness of breath no sputum no cough no significant leg pain she thinks the wound healing is coming along well I saw her when she was in the hospital last month and at that time she was much more tender. She denies any fevers sweats nausea changes in bowel habits weight or appetite. I've reviewed the [facility]. Allergies/Medications Allergies: Coded Allergies: adhesive tape (RASH ON SKIN THAT IT TOUCHES 10/22/17) iodine (DAVIS SKIN WHERE APPLIED 10/22/17) povidone-iodine (DAVIS SKIN WHERE IT IS APPLIED 10/22/17) shellfish derived (HIVES ALL OVER 10/22/17) propoxyphene (GI UPSET 10/22/17) Home Med List: Albuterol Sulfate 2.5 MG/3 ML (0.083 %) VIAL.NEB 1 Vial INH/JULIO TID COPD ( Reported) Albuterol Sulfate (Ventolin Hfa) 90 MCG HFA.AER.AD 2 PUF INH Q4-6 PRN PRN SHORTNESS OF BREATH Aspirin (Ecotrin*) 81 MG TABLET.DR 1 TAB PO DAILY HEART (Reported) Atorvastatin Calcium (Lipitor) 20 MG TABLET 1 TAB PO QPM CHOLESTEROL ( Reported) Budesonide/Formoterol Fumarate (Symbicort 160-4.5 Mcg Inhaler) 160 MCG-4.5 MCG/ ACTUATION HFA.AER.AD 2 PUF INH BID COPD (Reported) Cholecalciferol (Vitamin D3) (Vitamin D3) 1,000 UNIT CAPSULE 1 CAP PO DAILY HEALTH SUPPLEMENT (Reported) Diltiazem HCl (Diltiazem 24HR Cd) 120 MG CAP.ER.24H 1 CAP PO DAILY HEART/BP ( Reported) Esomeprazole Magnesium (Nexium) 20 MG CAPSULE.DR 1 CAP PO DAILY ACID REFLUX ( Reported) Fluticasone Propionate 50 MCG/ACTUATION SPRAY.SUSP 2 SPRAY NASB DAILY ALLERGIES (Reported) Furosemide 40 MG TABLET 1 TAB PO BID DIURETIC (Reported) Guaifenesin (Mucinex) 1,200 MG TAB.ER.12H 1 TAB PO BID ALLERGIES (Reported) Losartan Potassium 100 MG TABLET 0.5 TAB PO BID BP (Reported) Magnesium Oxide 400 MG TABLET 1 TAB PO DAILY SUPPLEMENT (Reported) Metoprolol Succinate 25 MG TAB 1 TAB PO DAILY BP (Reported) [place]-3 Acid Ethyl Esters (Lovaza) 1 GRAM CAPSULE 1 CAP PO BID CHOLESTEROL/ TRIGLYCERIDES (Reported) Oxycodone HCl/Acetaminophen (Oxycodone-Acetaminophen 10-325) 10 MG-325 MG TABLET 1 TAB PO Q6H PRN PAIN (Reported) Potassium Chloride 20 MEQ TAB.ER.PRT 1 TAB PO DAILY SUPPLEMENT (Reported) Rivaroxaban (Xarelto) 15 MG TABLET 1 TAB PO DAILY afib . Current Medications: I reviewed Current Medications Sig/Heena Start time Last Medication Dose Route Stop Time Status Admin Acetaminophen 650 MG Q6P PRN 01/08 1145 AC 01/08 PO 1147 Acetaminophen 325 MG Q6P PRN 01/08 0915 DC PO Acetaminophen 650 MG ONCE ONE 01/07 2230 DC 01/07 PO 01/07 2231 2227 Albuterol Sulfate 3 ML TID 01/07 2200 AC 01/08 INH 1051 Albuterol Sulfate 2 PUF Q4-6 PRN PRN 01/07 2100 AC INH Ampicillin Sodium/ 0 .STK-MED ONE 01/07 1644 DC Sulbactam Sodium .ROUTE Ampicillin Sodium/ 3,000 MG ONCE ONE 01/07 1615 DC 01/07 Sulbactam Sodium IV 01/07 1644 1645 Sodium Chloride 100 ML Aspirin Buffered 81 MG DAILY 01/08 1000 AC 01/08 PO 0857 Atorvastatin Calcium 20 MG QPM 01/07 2200 AC 01/07 PO 2323 Budesonide/ 2 PUF BID 01/07 220 AC 02/15 Formoterol Fumarate INH 0856 Diltiazem HCl 120 MG DAILY 01/08 1000 AC 01/08 PO 0857 Enoxaparin Sodium 40 MG DAILY 01/08 1000 AC 01/08 SC 0856 Fluticasone 2 SPRAY DAILY 01/08 1000 AC 01/08 Propionate MARCO 0856 Furosemide 40 MG BID 01/08 1000 AC 01/08 PO 0857 Losartan Potassium 50 MG BID 01/08 1000 AC 01/08 PO 0857 Metoprolol Succinate 25 MG DAILY 01/08 1000 AC 01/08 PO 0857 Morphine Sulfate 0 .STK-MED ONE 01/07 1911 DC .ROUTE Morphine Sulfate 2 MG ONCE ONE 01/07 1900 DC 01/07 IV 01/07 1901 190 Omeprazole 20 MG DAILY AC 01/08 0700 AC 01/08 PO 0605 Oxycodone HCl 5 MG Q6P PRN 01/08 0915 AC 01/08 PO 1351 Potassium Chloride 20 MEQ DAILY 01/08 1000 AC 01/08 PO 0857 Sodium Chloride 1,000 ML BOLUS ONE 01/07 184 DC 01/07 IV 01/07 1944 184 Sodium Chloride 1,000 ML BOLUS ONE 01/07 1845 DC 01/07 IV 01/07 1944 185 Past History Medical History Blood Transfusion Hx: Yes Neurological: NONE EENT: NONE Cardiovascular: AFIB, CHF, hypertension, hyperlipidemia Respiratory: COPD, pneumonia, radiation pneumonitis non-small cell lung cancer s /p lobectomy 2006 2007, s/p radiation 2013, c/b radiation pneumonitis Gastrointestinal: carcinoid syndrome, s/p resection Hepatic: NONE Renal: NONE Musculoskeletal: osteoarthritis Psychiatric: NONE Endocrine: NONE Blood Disorders: NONE 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 spouse Services at Home: None Primary Language: Latvian Smoking Status: Unknown If Ever Smoked ETOH Use: denies use Illicit Drug Use: denies illicit drug use Living Will? yes Functional Ability ADLs Independent: dressing, eating, toileting, bathing. Ambulation: independent IADLs Independent: shopping, housework, finances, food prep, telephone, transportation , medication admin. Review of Systems Review of Systems: Constitutional: No fever, sweats or weight loss ENMT: No sore throat Cardiovascular: No chest pain, palpitations or leg swelling, and as mentioned above Respiratory: No shortness of breath, cough, or sputum or dyspnea on exertion GI: No GERD or bleeding per rectum : No dysuria or hematuria Musculoskeletal: No new muscle weakness, bone or joint pain Skin / Breast: No jaundice, rashes or itching Psychiatric: No history of drug or alcohol abuse no depression or anxiety Hematologic / lymphatic system: No problems with excessive bleeding, bruising, or blood clots Exam & Diagnostic Data Vital Signs and I&O I reviewed Vital Signs Date Time Temp Pulse Resp B/P B/P Pulse O2 O2 Flow FiO2 Mean Ox Delivery Rate 01/08 0857 68 20 138/76 01/08 0857 138/76 01/08 0648 97.7 68 20 138/76 98 Room Air 01/08 0000 Room Air 01/07 2156 Room Air 01/07 1838 98.2 81 18 107/66 100 Room Air 01/07 1623 Room Air 01/07 1348 96.7 109 20 111/64 97 Room Air I reviewed Intake & Output 01/08 1600 01/08 0800 01/08 0000 01/07 1600 01/07 0800 01/07 0000 Intake Total 240 240 Output Total Balance 240 240 Intake, Oral 240 240 Patient 169 lb 169 lb Weight Weight Reported by Patient Reported by Patient Measurement Method Physical Exam: Constitutional: pleasant, no acute distress, conversant, in hospital bed in ER Eyes: sclera anicteric ENMT: ears and nose atraumatic, moist mucous membranes, good dentition, no lip lesions Neck: Supple, trachea is midline, no cervical or supraclavicular adenopathy and no palpable thyromegaly Cardiovascular: S1, S2, no murmurs, no peripheral edema Respiratory: clear to auscultation with normal respiratory effort and no intercostal retractions GI: abdomen soft, nontender, nondistended, no palpable hepatosplenomegaly Extremities / lymphatics: symmetrically warm, free range of motion no peripheral edema, Left lower leg examined open wound the surface is granulating there is no surrounding edema or erythema there is some mild serosanguineous drainage no skin necrosis no crepitus no cervical, supraclavicular, axillary, or inguinal adenopathy Musculoskeletal: Did not evaluate gait and station, no digital cyanosis, good muscle strength and tone no atrophy, motor grossly 5 out of 5 throughout Skin: no jaundice, no rashes warm, nondiaphoretic, no areas of erythema or induration Psychiatric: mood and affect are appropriate and alert and oriented to person place and time Last 24 Hours of Labs: Laboratory Tests 01/08 01/07 01/07 0656 1710 1531 Chemistry Sodium (137 - 145 mmol/L) 136 L Potassium (3.5 - 5.1 mmol/L) 4.7 Chloride (98 - 107 mmol/L) 96 L Carbon Dioxide (22 - 30 mmol/L) 30 Anion Gap (5 - 16) 10 BUN (7 - 17 mg/dL) 18 H Creatinine (0.5 - 1.0 mg/dL) 0.7 Estimated GFR (>60 ml/min) > 60 BUN/Creatinine Ratio (7 - 25 %) 25.7 H Lactic Acid (0.7 - 2.1 mmol/L) 2.4 H 2.5 H Coagulation PT (9.4 - 12.5 SEC) 19.5 H INR (0.90 - 1.19) 1.87 H APTT (25 - 37 SEC) 35 Hematology CBC w Diff NO MAN DIFF REQ WBC (4.8 - 10.8 /CUMM) 17.1 H RBC (4.20 - 5.40 /CUMM) 3.57 L Hgb (12.0 - 16.0 G/DL) 9.0 L Hct (37 - 47 %) 27.7 L MCV (81.0 - 99.0 FL) 77.7 L MCH (27.0 - 31.0 PG) 25.3 L MCHC (33.0 - 37.0 G/DL) 32.5 L RDW (11.5 - 14.5 %) 18.1 H Plt Count (130 - 400 /CUMM) 371 MPV (7.4 - 10.4 FL) 8.0 Gran % (42.2 - 75.2 %) 90.8 H Lymphocytes % (20.5 - 51.1 %) 3.5 L Monocytes % (1.7 - 9.3 %) 5.7 Eosinophils % (0 - 5 %) 0 Basophils % (0.0 - 2.0 %) 0 Absolute Granulocytes (1.4 - 6.5 /CUMM) 15.6 H Absolute Lymphocytes (1.2 - 3.4 /CUMM) 0.6 L Absolute Monocytes (0.10 - 0.60 /CUMM) 1.0 H Absolute Eosinophils (0.0 - 0.7 /CUMM) 0 Absolute Basophils (0.0 - 0.2 /CUMM) 0 Assessment/Plan Assessment/Plan Impression is patient who appears well but has leukocytosis and a healing open wound lower limb I doubt this is the source, there is no obvious tracking or even significant erythema. I reviewed the x-ray from today on PACS myself regarding the subcutaneous gas it's really not that impressive than could be related to the small tissue defect covered by a dressing but it's all superficial. This wound was always superficial and it's been open for over a month, and it's healing, there is no obviuos mechanism for a sudden deep extension. Agree with antibiotics and workup for other sources. Note that in August of last year she had a significant leukocytosis also not easily explained initially but then felt to be pulmonary this time she does not appear quite as ill. Problem List: 1. Open wound of leg 2. A-fib 3. 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 Leukocytosis Consult Acknowledgment - Thank you for your consult request.
--- NOTE | 2018-01-08 11:59 | PN- General Surgery ---
Surgical Brief Attending Note Brief Attending Note: patient known to me from previous hematoma evacuation. There is new leukocytosis and erythema proximal to wound. Gas seen on xray is likely related to open wound , not a new gas forming infection. Recommend IV abx and CT leg for clarification.
--- NOTE | 2018-01-08 12:02 | PN- Att Addend ---
Attending Addendum Attending Brief Note Patient in bed has some pain in the affected area on the leg, was seen by surgery, will be seen by infectious diseases at this point no antibiotics until evaluated by infectious diseases also will have a CAT scan that leg to see if there is any deep problems and need to have any procedures 24 TOTALS 01/08 0000 01/07 0000 Intake Total 240 Output Total Balance 240 Intake, Oral 240 Patient 169 lb Weight Weight Reported by Patient Measurement Method Current Medications Sig/Heena Start time Last Medication Dose Route Stop Time Status Admin Acetaminophen 650 MG Q6P PRN 01/08 1145 AC 01/08 PO 1147 Acetaminophen 325 MG Q6P PRN 01/08 0915 DC PO Acetaminophen 650 MG ONCE ONE 01/07 2230 DC 01/07 PO 01/07 2231 2227 Albuterol Sulfate 3 ML TID 01/07 2200 AC 01/08 INH 1051 Albuterol Sulfate 2 PUF Q4-6 PRN PRN 01/07 2100 AC INH Ampicillin Sodium/ 0 .STK-MED ONE 01/07 1644 DC Sulbactam Sodium .ROUTE Ampicillin Sodium/ 3,000 MG ONCE ONE 01/07 1615 DC 01/07 Sulbactam Sodium IV 01/07 1644 1645 Sodium Chloride 100 ML Aspirin Buffered 81 MG DAILY 01/08 1000 AC 01/08 PO 0857 Atorvastatin Calcium 20 MG QPM 01/07 2200 AC 01/07 PO 2323 Budesonide/ 2 PUF BID 01/07 2200 AC 01/08 Formoterol Fumarate INH 0856 Diltiazem HCl 120 MG DAILY 01/08 1000 AC 01/08 PO 0857 Enoxaparin Sodium 40 MG DAILY 01/08 1000 AC 01/08 SC 0856 Fluticasone 2 SPRAY DAILY 01/08 1000 AC 01/08 Propionate MARCO 0856 Furosemide 40 MG BID 01/08 1000 AC 01/08 PO 0857 Losartan Potassium 50 MG BID 01/08 1000 AC 01/08 PO 0857 Metoprolol Succinate 25 MG DAILY 01/08 1000 AC 01/08 PO 0857 Morphine Sulfate 0 .STK-MED ONE 01/07 1911 DC .ROUTE Morphine Sulfate 2 MG ONCE ONE 01/07 1900 DC 01/07 IV 01/07 1901 1907 Omeprazole 20 MG DAILY AC 01/08 0700 AC 01/08 PO 0605 Oxycodone HCl 5 MG Q6P PRN 01/08 0915 AC 01/08 PO 0915 Potassium Chloride 20 MEQ DAILY 01/08 1000 AC 01/08 PO 0857 Sodium Chloride 1,000 ML BOLUS ONE 01/07 1845 DC 01/07 IV 01/07 1944 184 Sodium Chloride 1,000 ML BOLUS ONE 01/07 1845 DC 01/07 IV 01/07 1944 1857 Laboratory Tests 01/08/18 0656: Anion Gap 10, Estimated GFR > 60, BUN/Creatinine Ratio 25.7 H, CBC w Diff NO MAN DIFF REQ, RBC 3.57 L, MCV 77.7 L, MCH 25.3 L, MCHC 32.5 L, RDW 18.1 H, MPV 8.0, Gran % 90.8 H, Lymphocytes % 3.5 L, Monocytes % 5.7, Eosinophils % 0, Basophils % 0, Absolute Granulocytes 15.6 H, Absolute Lymphocytes 0.6 L, Absolute Monocytes 1.0 H, Absolute Eosinophils 0, Absolute Basophils 0 01/07/18 1710: Lactic Acid 2.4 H 01/07/18 1531: Lactic Acid 2.5 H, PT 19.5 H, INR 1.87 H, APTT 35 Vital Signs Date Time Temp Pulse Resp B/P B/P Pulse O2 O2 Flow FiO2 Mean Ox Delivery Rate 01/08 1054 Room Air 01/08 1054 97 Room Air 01/08 0857 68 20 138/76 01/08 0857 138/76 01/08 0648 97.7 68 20 138/76 98 Room Air 01/08 0000 Room Air 01/07 2156 Room Air 01/07 1838 98.2 81 18 107/66 100 Room Air 01/07 1623 Room Air 01/07 1348 96.7 109 20 111/64 97 Room Air
[2018-01-08 13:31] VITALS: BP 120/77
--- NOTE | 2018-01-08 13:44 | CT SCAN REPORT ---
EXAMINATION: CT LOWER EXTREMITY WITHOUT CONTRAST, LEFT CLINICAL INFORMATION: Wound infection. Subcutaneous air on x-ray. COMPARISON: X-ray of the left lower leg 01/07/2018. TECHNIQUE: CT scan of the left lower leg with additional sagittal and coronal reformatted images obtained without contrast. DLP: 799 mGy-cm. FINDINGS: There is a focal superficial defect in the subcutaneous soft tissues over the anterior medial aspect of the distal lower leg measuring approximately 2 cm transverse and 2 cm craniocaudal. This is compatible with an ulceration. This is located approximately 9.5 cm proximal to the tibial talar joint. There appears to be additional areas of superficial skin or subcutaneous irregularity in the lower half of the lower leg which may reflect additional areas of ulceration. Diffuse skin thickening or superficial edema noted throughout the lower half of the lower leg along its medial aspect. There are some mild generalized streaky changes in the fat circumferentially about the lower leg most likely reflecting edema although cannot exclude mild cellulitis. Arterial calcification present. IMPRESSION: Localized subcutaneous defect along the anterior medial aspect of the distal lower leg compatible with ulceration or traumatic laceration/contusion. Additional skin thickening and some irregularity of the skin or superficial subcutaneous soft tissues raises the question of additional areas of ulceration.
--- NOTE | 2018-01-08 14:30 | Cons- Infect Disease ---
General Information and HPI Consulting Request Date of Consult: 01/08/18 Requested By: Antonio Lopez MD Reason for Consult: Rule out cellulitis left leg Source of Information: patient, family, old records History of Present Illness: This is an 87-year-old woman with a history of COPD, non-small cell lung cancer and carcinoid tumor, status post lower lobe lobectomies 10 and 11 years prior to admission, status post radiation 4 years prior to admission for a lingular nodule, complicated by radiation pneumonitis, multinodular thyroid gland, GERD, hypertension, diastolic dysfunction, atrial fibrillation, maintained on Xarelto, and osteoarthritis status post trauma to her left leg 3-1/2 weeks prior to admission, resulting in a hematoma, hospitalized 3 weeks prior to admission after 2 days of Augmentin for a presumed secondary cellulitis, found to be afebrile with a normal white blood cell count, treated with Unasyn for 5 days with evacuation of the hematoma in the OR 4 days after admission, transfused with 2 units of blood, which was complicated by respiratory distress, treated with Azithromycin and prednisone and discharged on a prednisone taper for 2 weeks, admitted on January 07 after an outpatient CBC revealed a leukocytosis of 22,000. On admission she was afebrile. X-ray of the left tibia/fibula revealed soft tissue swelling with subcutaneous gas. She was given 1 dose of Unasyn and followed off antibiotics. She has remained afebrile. She feels well with overall improvement in her pain and with no complaints of fevers or chills. Allergies/Medications Allergies: Coded Allergies: adhesive tape (RASH ON SKIN THAT IT TOUCHES 10/22/17) iodine (DAVIS SKIN WHERE APPLIED 10/22/17) povidone-iodine (DAVIS SKIN WHERE IT IS APPLIED 10/22/17) shellfish derived (HIVES ALL OVER 10/22/17) propoxyphene (GI UPSET 10/22/17) Home Med List: Albuterol Sulfate 2.5 MG/3 ML (0.083 %) VIAL.NEB 1 Vial INH/JULIO TID COPD ( Reported) Albuterol Sulfate (Ventolin Hfa) 90 MCG HFA.AER.AD 2 PUF INH Q4-6 PRN PRN SHORTNESS OF BREATH Aspirin (Ecotrin*) 81 MG TABLET.DR 1 TAB PO DAILY HEART (Reported) Atorvastatin Calcium (Lipitor) 20 MG TABLET 1 TAB PO QPM CHOLESTEROL ( Reported) Budesonide/Formoterol Fumarate (Symbicort 160-4.5 Mcg Inhaler) 160 MCG-4.5 MCG/ ACTUATION HFA.AER.AD 2 PUF INH BID COPD (Reported) Cholecalciferol (Vitamin D3) (Vitamin D3) 1,000 UNIT CAPSULE 1 CAP PO DAILY HEALTH SUPPLEMENT (Reported) Diltiazem HCl (Diltiazem 24HR Cd) 120 MG CAP.ER.24H 1 CAP PO DAILY HEART/BP ( Reported) Esomeprazole Magnesium (Nexium) 20 MG CAPSULE.DR 1 CAP PO DAILY ACID REFLUX ( Reported) Fluticasone Propionate 50 MCG/ACTUATION SPRAY.SUSP 2 SPRAY [place] DAILY ALLERGIES (Reported) Furosemide 40 MG TABLET 1 TAB PO BID DIURETIC (Reported) Guaifenesin (Mucinex) 1,200 MG TAB.ER.12H 1 TAB PO BID ALLERGIES (Reported) Losartan Potassium 100 MG TABLET 0.5 TAB PO BID BP (Reported) Magnesium Oxide 400 MG TABLET 1 TAB PO DAILY SUPPLEMENT (Reported) Metoprolol Succinate 25 MG TAB 1 TAB PO DAILY BP (Reported) [place]-3 Acid Ethyl Esters (Lovaza) 1 GRAM CAPSULE 1 CAP PO BID CHOLESTEROL/ TRIGLYCERIDES (Reported) Oxycodone HCl/Acetaminophen (Oxycodone-Acetaminophen 10-325) 10 MG-325 MG TABLET 1 TAB PO Q6H PRN PAIN (Reported) Potassium Chloride 20 MEQ TAB.ER.PRT 1 TAB PO DAILY SUPPLEMENT (Reported) Rivaroxaban (Xarelto) 15 MG TABLET 1 TAB PO DAILY afib . Past History Travel History Traveled to [place] past 21 day No Medical History Blood Transfusion Hx: Yes Neurological: NONE EENT: NONE Cardiovascular: AFIB, CHF, hypertension, hyperlipidemia Respiratory: COPD, pneumonia, radiation pneumonitis non-small cell lung cancer s /p lobectomy 2006 2007, s/p radiation 2013, c/b radiation pneumonitis Gastrointestinal: carcinoid syndrome, s/p resection Hepatic: NONE Renal: NONE Musculoskeletal: osteoarthritis Psychiatric: NONE Endocrine: NONE Blood Disorders: NONE Cancer(s): lung cancer [employer]/Reproductive: NONE History of MRSA: No History of VRE: No History of CDIFF: No Isolation History: Standard Influenza Vaccine: 08/03/17 Tetanus Vaccine: 08/06/17 Surgical History Surgical History: appendectomy, cholecystectomy, hip replacement, hysterectomy, status post pulmonary lobectomies Family History Relations & Conditions If Any: BROTHER FH: heart attack DAUGHTER FH: breast cancer Relation not specified for: FH: throat cancer Psychosocial History Who Do You Live With? spouse Services at Home: None Primary Language: Kyrgyz Smoking Status: Unknown If Ever Smoked ETOH Use: denies use Illicit Drug Use: denies illicit drug use Living Will? yes Functional Ability ADLs Independent: dressing, eating, toileting, bathing. Ambulation: independent IADLs Independent: shopping, housework, finances, food prep, telephone, transportation , medication admin. Exam & Diagnostic Data Last 24 Hrs of Vital Signs/I&O Vital Signs Date Time Temp Pulse Resp B/P B/P Pulse O2 O2 Flow FiO2 Mean Ox Delivery Rate 01/08 1331 97.8 66 20 120/77 97 01/08 1054 Room Air 01/08 1054 97 Room Air 01/08 0857 68 20 138/76 01/08 0857 138/76 01/08 0648 97.7 68 20 138/76 98 Room Air 01/08 0000 Room Air 01/07 2156 Room Air 01/07 1838 98.2 81 18 107/66 100 Room Air 01/07 1623 Room Air Intake & Output 01/08 1600 01/08 0800 01/08 0000 Intake Total 240 240 Output Total Balance 240 240 Intake, Oral 240 240 Number 1 Bowel Movements Patient 169 lb Weight Weight Reported by Patient Measurement Method Physical Exam Other Physical Findings: Afebrile. She is awake and alert in no acute distress. Skin reveals no rash. HEENT several lesions on her lips. Neck is supple with no adenopathy. Lungs bilateral expiratory wheezes. Heart irregular rhythm with no murmur. Abdomen is soft, nontender with positive bowel sounds. Back no CVA tenderness. Extremities left leg anterior tibial wound with good granulation, minimal necrosis, with no surrounding erythema, minimally tender on palpation. Neuro is without focality. Last 24 Hours of Lab Results: Laboratory Tests 01/08 01/07 01/07 0656 1710 1531 Chemistry Sodium (137 - 145 mmol/L) 136 L Potassium (3.5 - 5.1 mmol/L) 4.7 Chloride (98 - 107 mmol/L) 96 L Carbon Dioxide (22 - 30 mmol/L) 30 Anion Gap (5 - 16) 10 BUN (7 - 17 mg/dL) 18 H Creatinine (0.5 - 1.0 mg/dL) 0.7 Estimated GFR (>60 ml/min) > 60 BUN/Creatinine Ratio (7 - 25 %) 25.7 H Lactic Acid (0.7 - 2.1 mmol/L) 2.4 H 2.5 H Coagulation PT (9.4 - 12.5 SEC) 19.5 H INR (0.90 - 1.19) 1.87 H APTT (25 - 37 SEC) 35 Hematology CBC w Diff NO MAN DIFF REQ WBC (4.8 - 10.8 /CUMM) 17.1 H RBC (4.20 - 5.40 /CUMM) 3.57 L Hgb (12.0 - 16.0 G/DL) 9.0 L Hct (37 - 47 %) 27.7 L MCV (81.0 - 99.0 FL) 77.7 L MCH (27.0 - 31.0 PG) 25.3 L MCHC (33.0 - 37.0 G/DL) 32.5 L RDW (11.5 - 14.5 %) 18.1 H Plt Count (130 - 400 /CUMM) 371 MPV (7.4 - 10.4 FL) 8.0 Gran % (42.2 - 75.2 %) 90.8 H Lymphocytes % (20.5 - 51.1 %) 3.5 L Monocytes % (1.7 - 9.3 %) 5.7 Eosinophils % (0 - 5 %) 0 Basophils % (0.0 - 2.0 %) 0 Absolute Granulocytes (1.4 - 6.5 /CUMM) 15.6 H Absolute Lymphocytes (1.2 - 3.4 /CUMM) 0.6 L Absolute Monocytes (0.10 - 0.60 /CUMM) 1.0 H Absolute Eosinophils (0.0 - 0.7 /CUMM) 0 Absolute Basophils (0.0 - 0.2 /CUMM) 0 Last 24 Hours of Jem Results: Blood cultures January 07 negative Diagnostic Data Recent Imaging Findings: X-ray of the left tibia/fibula January 07 revealed soft tissue swelling overlying the distal tibia with subcutaneous gas CT of the left lower extremity reveals a focal superficial defect and subcutaneous soft tissues over the anterior medial aspect of the distal lower leg Assessment/Plan Assessment/Plan Impression: This is an 87-year-old woman with a history of COPD, non-small cell lung cancer and carcinoid tumor, atrial fibrillation, maintained on Xarelto, status post trauma to her left leg 3-1/2 weeks prior to admission, resulting in a hematoma, status post evacuation on her recent admission, with her postop course complicated by respiratory distress, treated with Azithromycin and prednisone and discharged on a prednisone taper for 2 weeks, admitted on January 07 after an outpatient CBC revealed a leukocytosis of 22,000. Her left leg wound has improved with no evidence for any residual infection. She remains afebrile and I suspect that her leukocytosis, which has improved today, is secondary to the steroids, which she was on until the day of admission. She has no other obvious source of infection and, as she is stable, I feel that she can be followed off antibiotics. The subcutaneous gas seen on the recent x-ray is presumably secondary to the open wound. Suggestion: 1. Local wound care per Surgery 2. Continue to follow temperatures and white blood cell count off antibiotics Consult Acknowledgment - Thank you for your consult request.
[2018-01-08 22:21] VITALS: BP 120/60
[2018-01-09 07:19] VITALS: BP 124/58
[2018-01-09 07:51] LABS: ABSOLUTE BASOPHIL COUNT 0 /CUMM (0.0-0.2); ABSOLUTE EOSINOPHIL COUNT 0 /CUMM (0.0-0.7); ABSOLUTE GRANULOCYTE CT 9.4 /CUMM (1.4-6.5); ABSOLUTE LYMPH COUNT 1.6 /CUMM (1.2-3.4); ABSOLUTE MONOCYTE COUNT 0.9 /CUMM (0.10-0.60); BASOPHIL % 0 % (0.0-2.0); EOSINOPHIL % 0 % (0-5); GRANULOCYTE % 79.1 % (42.2-75.2); HEMATOCRIT 25.3 % (37-47); MEAN CORPUSCULAR HGB 25.5 PG (27.0-31.0); MEAN CORPUSCULAR HGB CONC 32.7 G/DL (33.0-37.0); MEAN PLATELET VOLUME 7.9 FL (7.4-10.4); PLATELET COUNT 358 /CUMM (130-400); RED BLOOD CELL CT 3.24 /CUMM (4.20-5.40); WHITE BLOOD CELL COUNT 11.9 /CUMM (4.8-10.8)
--- NOTE | 2018-01-09 08:47 | PN- Housestaff ---
Subjective Follow-up For: possible sepsis-possible wound infection/cellulitis Subjective: no complaints today, some mild pain at LLE afebrile Review of Systems Constitutional: Reports: see HPI. Objective Last 24 Hrs of Vital Signs/I&O Vital Signs Date Time Temp Pulse Resp B/P B/P Pulse O2 O2 Flow FiO2 Mean Ox Delivery Rate 01/09 0831 98 Room Air Room Air 01/09 0719 98.0 76 20 124/58 98 01/09 0000 Room Air 01/08 2221 98.1 68 20 120/60 97 Room Air 01/08 2117 68 120/60 01/08 1930 96 Room Air 01/08 1331 97.8 66 20 120/77 97 Intake & Output 01/09 1600 01/09 0800 01/09 0000 Intake Total 240 240 Output Total Balance 240 240 Intake, Oral 240 240 Physical Exam General Appearance: Alert, Oriented X3, Cooperative, No Acute Distress Cardiovascular: Regular Rate, Normal S1, Normal S2, No Murmurs Lungs: Clear to Auscultation, Normal Air Movement Abdomen: Normal Bowel Sounds, Soft, No Tenderness, No Masses Extremities: LLE dressing over wound, cellulitic area? on left thigh proximal to wound unchanged Current Medications: Current Medications Sig/Heena Start time Last Medication Dose Route Stop Time Status Admin Acetaminophen 650 MG Q6P PRN 01/08 1145 AC 01/09 PO 0619 Albuterol Sulfate 3 ML TID 01/07 2200 AC 01/09 INH 0831 Albuterol Sulfate 2 PUF Q4-6 PRN PRN 01/07 2100 AC INH Aspirin Buffered 81 MG DAILY 01/08 1000 AC 01/09 PO 0846 Atorvastatin Calcium 20 MG QPM 01/07 2200 AC 01/08 PO 2117 Budesonide/ 2 PUF BID 01/07 2200 AC 01/09 Formoterol Fumarate INH 0847 Diltiazem HCl 120 MG DAILY 01/08 1000 AC 01/09 PO 0846 Enoxaparin Sodium 40 MG DAILY 01/08 1000 AC 01/09 SC 0847 Fluticasone 2 SPRAY DAILY 01/08 1000 AC 01/09 Propionate MARCO 0847 Furosemide 40 MG BID 01/08 1000 AC 01/09 PO 0846 Losartan Potassium 50 MG BID 01/08 1000 AC 01/09 PO 0846 Melatonin 5 MG AT BEDTIME 01/090 AC 01/08 PO 2350 Melatonin 5 MG .STK-MED ONE 01/08 2349 DC PO 01/08 2350 Metoprolol Succinate 25 MG DAILY 01/08 1000 AC 01/09 PO 0848 Omeprazole 20 MG DAILY AC 01/08 0700 AC 01/09 PO 0615 Oxycodone HCl 5 MG Q6P PRN 01/08 0915 01/09 PO 0845 Patient Medication 1 ED ONE ONE 01/09 1130 DC Teaching ED 01/09 1131 Potassium Chloride 20 MEQ DAILY 01/08 1000 AC 01/09 PO 0847 Last 24 Hrs of Lab/Jem Results Last 24 Hrs of Labs/Mics: Laboratory Tests 01/09/18 0656: Anion Gap 8, Estimated GFR 59 L, BUN/Creatinine Ratio 26.7 H, Lactic Acid 1.3, CBC w Diff NO MAN DIFF REQ, RBC 3.24 L, MCV 78.0 L, MCH 25.5 L, MCHC 32.7 L, RDW 18.0 H, MPV 7.9, Gran % 79.1 H, Lymphocytes % 13.7 L, Monocytes % 7.2, Eosinophils % 0, Basophils % 0, Absolute Granulocytes 9.4 H, Absolute Lymphocytes 1.6, Absolute Monocytes 0.9 H, Absolute Eosinophils 0, Absolute Basophils 0 Assessment/Plan Assessment: 87 year old female with past medical history of asthma, COPD, 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 Sepsis: secondary to left lower extremity cellulitis Leukocytosis improved-was secondary to steroid taper Antibiotics discontinued LLE wound: Continue local wound care, no more wound vac Xeroform dressing changes with dry protective dressing Subcutaneous gas on x-ray evaluated by CT LLE No surgical intervention related to I+D and wound care not acute infection Atrial fibrillation: Hold Xarelto for possible repeat debridement with surgery Continue cardizem and metoprolol for rate control CHF/mild cad: HFpEF echo lvef Continue beta tao, acei, aspirin and statin COPD: not oxygen dependent TRC evaluation for nebulized albuterol Continue symbicort Regular diet DVT ppx-on xarelto, ALPs while Xarelto held Full code Stable for discharge home, follow up with wound care center and home services for dressing changes Problem List: 1. Leukocytosis 2. Open wound of leg 3. Wound infection 4. A-fib 5. Anemia Pain Ratin Pain Location: LLE Pain Goal: Pain 4 or less Pain Plan: prn Tomorrow's Labs & Rationales: none, discharge
--- NOTE | 2018-01-09 10:36 | Patient Discharge Instructions ---
Discharge Instructions General Discharge Information You were seen/treated for: wound care Special Instructions: follow up at the wound care center Acute Coronary Syndrome Inclusion Criteria At DC or during hospital stay patient has or had the following: ACS DIAGNOSIS No Discharge Core Measures Meds if any: Prescribed or Continued at Discharge Meds if any: NOT Prescribed or Continued at Discharge Congestive Heart Failure Inclusion Criteria At DC or during hospital stay patient has or had the following: CHF DIAGNOSIS No Discharge Core Measures Meds if any: Prescribed or Continued at Discharge Meds if any: NOT Prescribed or Continued at Discharge Cerebrovascular accident Inclusion Criteria At DC or during hospital stay patient has or had the following: CVA/TIA Diagnosis No Discharge Core Measures Meds if any: Prescribed or Continued at Discharge Meds if any: NOT Prescribed or Continued at Discharge Venous thromboembolism Inclusion Criteria VTE Diagnosis No VTE Type NONE VTE Confirmed by (Test) NONE Discharge Core Measures - Per Current guidelines, there needs to be overlap - treatment for the first 5 days of Warfarin therapy. - If discharged on Warfarin prior to 5 days of - overlap therapy, the patient will need to be - assessed for post discharge needs including - *Post discharge parental anticoagulation - *Warfarin and/or parental anticoagulation education - *Follow up date to check INR post discharge At least 5 days overlap therapy as Inpatient No Meds if any: Prescribed or Continued at Discharge Note: Overlap Therapy is Warfarin and Anticoagulant Meds if any: NOT Prescribed or Continued at Discharge
--- NOTE | 2018-01-09 11:11 | PN- Att Addend ---
Attending Addendum Attending Brief Note Looking better feeling better. Vital signs are stable as no fever her white count is down to almost normal. The leukocytosis could've been related to the steroids. CT scan was reviewed. Be seen by wound nurse, after that patient would be discharged with home care and follow with all the specialists in the wound Center see the CMR. Intake & Output 01/09 1600 01/09 0400 01/08 1600 01/08 0400 01/07 1600 01/07 0400 Intake Total 240 240 240 240 Output Total Balance 240 240 240 240 Intake, Oral 240 240 240 240 Number 1 Bowel Movements Patient 169 lb 169 lb Weight Weight Reported by Patient Reported by Patient Measurement Method Current Medications Sig/Heena Start time Last Medication Dose Route Stop Time Status Admin Acetaminophen 650 MG Q6P PRN 01/08 1145 AC 01/09 PO 0619 Acetaminophen 325 MG Q6P PRN 01/08 0915 DC PO Albuterol Sulfate 3 ML TID 01/07 2200 AC 01/09 INH 0831 Albuterol Sulfate 2 PUF Q4-6 PRN PRN 01/07 2100 AC INH Aspirin Buffered 81 MG DAILY 01/08 1000 AC 01/09 PO 0846 Atorvastatin Calcium 20 MG QPM 01/07 2200 AC 01/08 PO 2117 Budesonide/ 2 PUF BID 01/07 2200 AC 01/09 Formoterol Fumarate INH 0847 Diltiazem HCl 120 MG DAILY 01/08 1000 AC 01/09 PO 0846 Enoxaparin Sodium 40 MG DAILY 01/08 1000 AC 01/09 SC 0847 Fluticasone 2 SPRAY DAILY 01/08 1000 AC 01/09 Propionate MARCO 0847 Furosemide 40 MG BID 01/08 1000 AC 01/09 PO 0846 Losartan Potassium 50 MG BID 01/08 1000 AC 01/09 PO 0846 Melatonin 5 MG AT BEDTIME 01/09 2200 AC 01/08 PO 2350 Melatonin 5 MG .STK-MED ONE 01/08 2349 DC PO 01/08 2350 Metoprolol Succinate 25 MG DAILY 01/08 1000 AC 01/09 PO 0848 Omeprazole 20 MG DAILY AC 01/08 0700 AC 01/09 PO 0615 Oxycodone HCl 5 MG Q6P PRN 01/08 0915 AC 01/09 PO 0845 Potassium Chloride 20 MEQ DAILY 01/08 1000 AC 01/09 PO 0847 Laboratory Tests 01/09/18 0656: Anion Gap 8, Estimated GFR 59 L, BUN/Creatinine Ratio 26.7 H, Lactic Acid 1.3, CBC w Diff NO MAN DIFF REQ, RBC 3.24 L, MCV 78.0 L, MCH 25.5 L, MCHC 32.7 L, RDW 18.0 H, MPV 7.9, Gran % 79.1 H, Lymphocytes % 13.7 L, Monocytes % 7.2, Eosinophils % 0, Basophils % 0, Absolute Granulocytes 9.4 H, Absolute Lymphocytes 1.6, Absolute Monocytes 0.9 H, Absolute Eosinophils 0, Absolute Basophils 0 01/08/18 0656: Anion Gap 10, Estimated GFR > 60, BUN/Creatinine Ratio 25.7 H, CBC w Diff NO MAN DIFF REQ, RBC 3.57 L, MCV 77.7 L, MCH 25.3 L, MCHC 32.5 L, RDW 18.1 H, MPV 8.0, Gran % 90.8 H, Lymphocytes % 3.5 L, Monocytes % 5.7, Eosinophils % 0, Basophils % 0, Absolute Granulocytes 15.6 H, Absolute Lymphocytes 0.6 L, Absolute Monocytes 1.0 H, Absolute Eosinophils 0, Absolute Basophils 0 01/07/18 1710: Lactic Acid 2.4 H 01/07/18 1531: Lactic Acid 2.5 H, PT 19.5 H, INR 1.87 H, APTT 35 Microbiology 01/07 1531 BLOOD: Blood Culture - RES 01/07 1520 BLOOD: Blood Culture - RES Microbiology 01/07 1531 BLOOD: Blood Culture - RES 01/07 1520 BLOOD: Blood Culture - RES Vital Signs Date Time Temp Pulse Resp B/P B/P Pulse O2 O2 Flow FiO2 Mean Ox Delivery Rate 01/09 0831 98 Room Air Room Air 01/09 0719 98.0 76 20 124/58 98 01/09 0000 Room Air 01/08 2221 98.1 68 20 120/60 97 Room Air 01/08 2117 68 120/60 01/08 1930 96 Room Air 01/08 1331 97.8 66 20 120/77 97
--- NOTE | 2018-01-09 11:31 | Discharge Summary ---
Visit Information Visit Dates Admission Date: 01/07/18 Discharge Date: 01/09/18 Hospital Course Course Attending Physician: Antonio Lopez MD Primary Care Physician: Antonio Lopez MD Hospital Course: 87 year old woman with a history of COPD, non-small cell lung cancer and carcinoid tumor, with bilateral lower lobectomies and s/p radiation for a lingular nodule, and radiation pneumonitis, multinodular thyroid gland, GERD, HTN, diastolic dysfunction, and a recent diagnosis of atrial fibrillation on Xarelto recently admitted approximately three weeks prior for left lower extremity trauma resulting in a hematoma. The patient was briefly treated with Unasyn for a possible secondary cellulitis but was afebrile without leukocytosis. The patient had wound hematoma evacuation performed at both the bedside and in the operating room requiring transfusion with two units of blood. Her hospitalization was complicated by respiratory distress and wheezing which treated with Azithromycin and prednisone, discharged two week prednisone taper. The patient was ssent to the ED for evaluation after an outpatient CBC revealed a leukocytosis of 22,000. On admission she was afebrile and there was concern for a secondary cellulitis/wound infection. The patient met SIRS criteria at the time of admission, although her leukocytosis was confounded by recent steroid use. She was given one dose of Unasyn in the emergency department and followed off antibiotics. Her wound was healing well with granulation tissue and she was following up at the wound care center and undergoing regular dressing changes with home health services. She had previously been using a wound vacuum to the left lower extremity at home but this had been recently discontinued. X-ray of the left tibia/fibula revealed soft tissue swelling with subcutaneous gas for which surgery was consulted. Infectious disease was consulted to be certain this wasn't an infectious etiology. Infectious disease agreed that there was no obvious source of infection, that the leukocytosis was probably from recent steroids, and continuing to monitor the patient off antibiotics. Surgery was also consulted and the subcutaneous emphysema was further evaluated with a CT of the lower extremity. Surgery believed her wound was unlikely to be the source of an infection. There was no obvious tracking or significant erythema. Imaging was reviewed and the subcutaneous gas was thought to be superficial and related to the soft tissue defect. The wound was healing well with no obvious mechanism for a sudden deep extension. The patient was monitored off antibiotics over the next 48 hours, remained afebrile and leukocytosis rapidly improved. The patient was discharged home with instructions to continue wound care and follow up with Dr. Patterson and the wound care center and her primary care physician. Allergies: Coded Allergies: adhesive tape (RASH ON SKIN THAT IT TOUCHES 10/22/17) iodine (DAVIS SKIN WHERE APPLIED 10/22/17) povidone-iodine (DAVIS SKIN WHERE IT IS APPLIED 10/22/17) shellfish derived (HIVES ALL OVER 10/22/17) propoxyphene (GI UPSET 10/22/17) Disposition Summary Disposition Principal Diagnosis: Left lower extremity open wound with SIRS criteria Possible cellulitis and wound infection Additional Diagnosis: Atrial fibrillation on Xarelto COPD Non-small cell lung cancer and carcinoid tumor s/p lower lobes lobectomies Discharge Disposition: home health services Discharge Instructions General Discharge Information Code Status: Full Code Patient's Diet: Heart healthy diet Patient's Activity: As tolerated, no limitations Follow-Up Instructions/Appts: Please follow up with the wound care physician. Medications at Discharge Discharge Medications: Continue taking these medications: Fluticasone Propionate (Fluticasone Propionate) 50 MCG/ACTUATION SPRAY.SUSP 2 [place] Both sides of nose DAILY Comments: Last Taken:01/09/18 Time:10 AM Metoprolol Succinate (Metoprolol Succinate) 25 MG TAB 1 Tablet ORAL DAILY Comments: Last Taken: 12/26/17 Time: 10 AM Losartan Potassium (Losartan Potassium) 100 MG TABLET 0.5 Tablet ORAL TWICE DAILY Comments: Last Taken: 01/09/18 Time: 10 AM Atorvastatin Calcium (Lipitor) 20 MG TABLET 1 Tablet ORAL Every night Comments: Last Taken: 01/08/18 Time: 9:00 PM Furosemide (Furosemide) 40 MG TABLET 1 Tablet ORAL TWICE DAILY Comments: Last Taken: 01/09/18 Time: 10 AM Albuterol Sulfate (Albuterol Sulfate) 2.5 MG/3 ML (0.083 %) VIAL.NEB 1 Vial Inhale Solution THREE TIMES DAILY Comments: Last Taken: 01/09/18 Time: 830 AM Magnesium Oxide (Magnesium Oxide) 400 MG TABLET 1 Tablet ORAL DAILY Comments: Last Taken: NOT GIVEN DURING THIS ADMISSION Time: Guaifenesin (Mucinex) 1,200 MG TAB.ER.12H 1 Tablet ORAL TWICE DAILY Comments: Last Taken: NOT GIVEN DURING THIS ADMISSION Time: [place]-3 Acid Ethyl Esters (Lovaza) 1 GRAM CAPSULE 1 Capsule ORAL TWICE DAILY Comments: Last Taken:09/05/17 Time:10AM Aspirin (Ecotrin*) 81 MG TABLET.DR 1 Tablet ORAL DAILY Comments: Last Taken: 01/09/18 Time: 10 AM Potassium Chloride (Potassium Chloride) 20 MEQ TAB.ER.PRT 1 Tablet ORAL DAILY Comments: Last Taken:01/09/18 Time:10AM Albuterol Sulfate (Ventolin Hfa) 90 MCG HFA.AER.AD 2 Puff Inhale through mouth EVERY 4-6 HOURS NEEDED as needed for SHORTNESS OF BREATH Qty = 1 Comments: NOT GIVEN IN HOSPITAL Budesonide/Formoterol Fumarate (Symbicort 160-4.5 Mcg Inhaler) 160 MCG-4.5 MCG/ ACTUATION HFA.AER.AD 2 Puff Inhale through mouth TWICE DAILY Qty = 306 Comments: Last Taken:12/26/17 Time:10AM Diltiazem HCl (Diltiazem 24HR Cd) 120 MG CAP.ER.24H 1 Capsule ORAL DAILY Comments: Last Taken: 01/09/18 Time: 10 AM Cholecalciferol (Vitamin D3) (Vitamin D3) 1,000 UNIT CAPSULE 1 Capsule ORAL DAILY Esomeprazole Magnesium (Nexium) 20 MG CAPSULE.DR 1 Capsule ORAL DAILY Rivaroxaban (Xarelto) 15 MG TABLET 1 Tablet ORAL DAILY Qty = 30 Instructions: . Oxycodone HCl/Acetaminophen (Oxycodone-Acetaminophen 10-325) 10 MG-325 MG TABLET 1 Tablet ORAL Q6H as needed for PAIN Qty = 30 Copies To: Yesenia HALL,Oliver Becerril; Antonio Lopez MD Attending MD Review Statement Documenting Attending: Antonio Lopez MD
== END 2018-01-09 13:00 | disposition home health service (06) | DRG 872 ==
LOC: ERH 13:39 → 2NB 16:32 → ERHI 16:32 → ENRESERV 19:43 → ENTRNSPT 21:07 → EDTRNSPTSTS 21:24 → 2NB 21:31 → CMPTRNSPT 21:40 → ENPENDDIS 01-09 10:39 → ENTRNSPT 01-09 12:45 → EDTRNSPT 01-09 12:54 → EDTRNSPTSTS 01-09 12:54 → 2NB 01-09 13:00 → CMPTRNSPT 01-09 13:10
PROVIDERS: Emergency Medicine; Student in an Organized Health Care Education/Training Program
DX: A41.9 Sepsis, unspecified organism (principal); I48.91 Unspecified atrial fibrillation; I11.0 Hypertensive heart disease with heart failure; I50.30 Unspecified diastolic (congestive) heart failure; L03.116 Cellulitis of left lower limb; Z79.01 Long term (current) use of anticoagulants; J44.9 Chronic obstructive pulmonary disease, unspecified; E66.9 Obesity, unspecified; Z68.30 Body mass index [BMI] 30.0-30.9, adult; S81.802D Unspecified open wound, left lower leg, subsequent encounter; Z85.118 Personal history of other malignant neoplasm of bronchus and lung; Z90.2 Acquired absence of lung [part of]; K21.9 Gastro-esophageal reflux disease without esophagitis; I25.10 Atherosclerotic heart disease of native coronary artery without angina pectoris
CPT/HCPCS: 2NBSP; 36592; 73590-LT; 82436; 87040; 93005; 93010; J1650; J3490

== ENCOUNTER 2018-01-14 12:46 | Emergency (ER) | payer OTHER, MEDICARE ==
[~2018-01-14] VITALS: Ht 167.6 cm; Wt 76.2 kg
[~2018-01-14 12:46] MED LIST changes: +OXYCODONE-ACET1 EAC1 PO
[2018-01-14 13:23] VITALS: BP 120/75
--- NOTE | 2018-01-14 13:44 | ED UPPER/LOWER EXTREMITY COMPL ---
History of Present Illness General Chief Complaint: General Adult Stated Complaint: SENT BY [facility] FOR BLEEDING WOUND Source: patient, family, old records Exam Limitations: no limitations Vital Signs & Intake/Output Vital Signs & Intake/Output Vital Signs Date Time Temp Pulse Resp B/P B/P Pulse O2 O2 Flow FiO2 Mean Ox Delivery Rate 01/14 1323 98.0 78 18 120/75 99 Room Air Allergies Coded Allergies: adhesive tape (RASH ON SKIN THAT IT TOUCHES 10/22/17) iodine (DAVIS SKIN WHERE APPLIED 10/22/17) povidone-iodine (DAVIS SKIN WHERE IT IS APPLIED 10/22/17) shellfish derived (HIVES ALL OVER 10/22/17) propoxyphene (GI UPSET 10/22/17) Reconcile Medications Albuterol Sulfate 2.5 MG/3 ML (0.083 %) VIAL.NEB 1 Vial INH/JULIO TID COPD ( Reported) Albuterol Sulfate (Ventolin Hfa) 90 MCG HFA.AER.AD 2 PUF INH Q4-6 PRN PRN SHORTNESS OF BREATH Aspirin (Ecotrin*) 81 MG TABLET.DR 1 TAB PO DAILY HEART (Reported) Atorvastatin Calcium (Lipitor) 20 MG TABLET 1 TAB PO QPM CHOLESTEROL ( Reported) Budesonide/Formoterol Fumarate (Symbicort 160-4.5 Mcg Inhaler) 160 MCG-4.5 MCG/ ACTUATION HFA.AER.AD 2 PUF INH BID COPD (Reported) Cholecalciferol (Vitamin D3) (Vitamin D3) 1,000 UNIT CAPSULE 1 CAP PO DAILY HEALTH SUPPLEMENT (Reported) Diltiazem HCl (Diltiazem 24HR Cd) 120 MG CAP.ER.24H 1 CAP PO DAILY HEART/BP ( Reported) Esomeprazole Magnesium (Nexium) 20 MG CAPSULE.DR 1 CAP PO DAILY ACID REFLUX ( Reported) Fluticasone Propionate 50 MCG/ACTUATION SPRAY.SUSP 2 SPRAY NASB DAILY ALLERGIES (Reported) Furosemide 40 MG TABLET 1 TAB PO BID DIURETIC (Reported) Guaifenesin (Mucinex) 1,200 MG TAB.ER.12H 1 TAB PO BID ALLERGIES (Reported) Losartan Potassium 100 MG TABLET 0.5 TAB PO BID BP (Reported) Magnesium Oxide 400 MG TABLET 1 TAB PO DAILY SUPPLEMENT (Reported) Metoprolol Succinate 25 MG TAB 1 TAB PO DAILY BP (Reported) [place]-3 Acid Ethyl Esters (Lovaza) 1 GRAM CAPSULE 1 CAP PO BID CHOLESTEROL/ TRIGLYCERIDES (Reported) Oxycodone HCl/Acetaminophen (Oxycodone-Acetaminophen 10-325) 10 MG-325 MG TABLET 1 TAB PO Q6H PRN PAIN (Reported) Potassium Chloride 20 MEQ TAB.ER.PRT 1 TAB PO DAILY SUPPLEMENT (Reported) Rivaroxaban (Xarelto) 15 MG TABLET 1 TAB PO DAILY afib . Triage Note: PT TO ED FOR CHRONIC BLEEDING L LEG WOUND. SEEN IN ED LAST NIGHT FOR SAME, SAW DR KATZ THIS AM WHO REFERRED HER TO ED Triage Nurses Notes Reviewed? yes Onset: Abrupt Duration: day(s): (1), constant Timing: recent history Severity: moderate Severity Numbers: 5 Pain/Injury Location: Left: Other (leg). Method of Injury: unknown No Modifying Factors: none Associated Symptoms: none HPI: 87-year-old female presents sent in from the wound center for chronic wound bleeding has been persistent since last night for which she was seen for the same. Patient stopped her xarelto 2 days ago. No dizziness no lightheadedness. She denies fever chills they've been applying dressings without success of bleeding cessation no pain (Hu Ochoa) Past History Travel History Traveled to [place] past 21 day No Medical History Any Pertinent Medical History? see below for history Neurological: NONE EENT: NONE Cardiovascular: AFIB, CHF, hypertension, hyperlipidemia Respiratory: COPD, pneumonia, radiation pneumonitis non-small cell lung cancer s /p lobectomy 2006 2007, s/p radiation 2013, c/b radiation pneumonitis Gastrointestinal: carcinoid syndrome, s/p resection Hepatic: NONE Renal: NONE Musculoskeletal: osteoarthritis Psychiatric: NONE Endocrine: NONE Blood Disorders: NONE Cancer(s): lung cancer MASSEUR/MASSEUSE/Reproductive: NONE History of MRSA: No History of VRE: No History of CDIFF: No Tetanus Vaccine: 08/06/17 Surgical History Surgical History: appendectomy, cholecystectomy, hip replacement, hysterectomy, status post pulmonary lobectomies Psychosocial History Who do you live with Spouse Services at Home None What is your primary language Mosotho Tobacco Use: Never used ETOH Use: denies use Illicit Drug Use: denies illicit drug use Family History Family History, If Any: BROTHER FH: heart attack DAUGHTER FH: breast cancer Relation not specified for: FH: throat cancer Hx Contributory? No (Hu Ochoa) Review of Systems Review of Systems Constitutional: Reports: see HPI. Comments Review of systems: See HPI, All other systems negative. Constitutional, no chills no fever, no malaise HEENT: no sore throat no congestion Cardiovascular: No chest pain Skin: no rashes, no change in skin Respiratory: No dyspnea no cough no sputum GI: No nausea no vomiting, no diarrhea, no bloating/constipation : No dysuria No hematuria, no frequency Muscle skeletal: No joint pain, no back pain, no neck pain, Neurologic: , no headache Heme/endocrine: No bruising, bleeding Immunology: No lymphadenopathy (Hu Ochoa) Physical Exam Physical Exam General Appearance: well developed/nourished, no apparent distress, alert Comments: Well-developed well-nourished patient in no apparent distress. HEENT: Atraumatic, extraocular motion intact Neck: Supple, FROM Back: FROM Respiratory: No respiratory distress. Patient speaking in full complete sentences. Breath sounds clear to auscultation bilaterally: NO W/R/R Extremities: full range of motion Neuro: awake, alert, and oriented to person, place and time. There were no obvious focal neurologic abnormalities. Skin: Warm & dry;slight bleeding noted from chronic wound medial left lower leg no surroudning erythema , induration or fluctance, nontender Psych: Mood affect normal, normal memory normal judgment. (Hu Ochoa) Progress Differential Diagnosis: cellulitis, hypercoag state Plan of Care: silver nitrate appiled, surgicel/kalostat dressign applied. d/w pt and plan of care, she is schedule to see dr katz again in 2 days, no residual bleeding, d/w pt return precatuions they feel comfortable with plan cleared for dc (Hu Ochoa) Departure Departure Time of Disposition: 3 Disposition: HOME OR SELF CARE Condition: Stable Clinical Impression Primary Impression: Bleeding from wound Referrals: Yesenia HALL,Oliver Lopez MD,Antonio (PCP/Family) Additional Instructions: follow up with wound center as scheduled on friday. keep dressing in place until then. return at [facility] sooner if you have persistent bleeding or any other concerns Departure Forms: Customer Survey General Discharge Information (Hu Ochoa) PA/RECORD PRESSMAN Co-Sign Statement Statement: ED Attending supervision documentation- [X] I saw and evaluated the patient. I have also reviewed all the pertinent lab results and diagnostic results. I agree with the findings and the plan of care as documented in the PA's/RECORD PRESSMAN's documentation. [X] I have reviewed the ED Record and agree with the PA's/RECORD PRESSMAN's documentation. [] Additions or exceptions (if any) to the PAs/RECORD PRESSMAN's note and plan are summarized below: [] (Bradley HALL,Jaspreet Becerril)
== END 2018-01-14 14:18 ==
LOC: ERH 12:46
DX: R23.3 Spontaneous ecchymoses (principal)

== ENCOUNTER 2018-01-19 05:18 | Inpatient (IN) | payer OTHER, MEDICARE ==
[~2018-01-19] VITALS: Ht 157.5 cm; Wt 80.8 kg
--- NOTE | 2018-01-19 05:24 | ED DYSPNEA/ASTHMA COMPLAINT ---
History of Present Illness General Chief Complaint: Dyspnea (COPD, CHF, Other) Stated Complaint: BIBA SOB Source: patient, old records, EMS Exam Limitations: no limitations Vital Signs & Intake/Output Vital Signs & Intake/Output Vital Signs Date Time Temp Pulse Resp B/P B/P Pulse O2 O2 Flow FiO2 Mean Ox Delivery Rate 01/19 0635 108 30 98 Nasal 2.0L Cannula 01/19 0537 97.1 102 30 162/70 85 Room Air 01/19 0530 Aerosol Mask Allergies Coded Allergies: adhesive tape (RASH ON SKIN THAT IT TOUCHES 10/22/17) iodine (DAVIS SKIN WHERE APPLIED 10/22/17) povidone-iodine (DAVIS SKIN WHERE IT IS APPLIED 10/22/17) shellfish derived (HIVES ALL OVER 10/22/17) propoxyphene (GI UPSET 10/22/17) Reconcile Medications Albuterol Sulfate 2.5 MG/3 ML (0.083 %) VIAL.NEB 1 Vial INH/JULIO TID COPD ( Reported) Albuterol Sulfate (Ventolin Hfa) 90 MCG HFA.AER.AD 2 PUF INH Q4-6 PRN PRN SHORTNESS OF BREATH Aspirin (Ecotrin*) 81 MG TABLET.DR 1 TAB PO DAILY HEART (Reported) Atorvastatin Calcium (Lipitor) 20 MG TABLET 1 TAB PO QPM CHOLESTEROL ( Reported) Budesonide/Formoterol Fumarate (Symbicort 160-4.5 Mcg Inhaler) 160 MCG-4.5 MCG/ ACTUATION HFA.AER.AD 2 PUF INH BID COPD (Reported) Cholecalciferol (Vitamin D3) (Vitamin D3) 1,000 UNIT CAPSULE 1 CAP PO DAILY HEALTH SUPPLEMENT (Reported) Diltiazem HCl (Diltiazem 24HR Cd) 120 MG CAP.ER.24H 1 CAP PO DAILY HEART/BP ( Reported) Esomeprazole Magnesium (Nexium) 20 MG CAPSULE.DR 1 CAP PO DAILY ACID REFLUX ( Reported) Fluticasone Propionate 50 MCG/ACTUATION SPRAY.SUSP 2 SPRAY NASB DAILY ALLERGIES (Reported) Furosemide 40 MG TABLET 1 TAB PO BID DIURETIC (Reported) Guaifenesin (Mucinex) 1,200 MG TAB.ER.12H 1 TAB PO BID ALLERGIES (Reported) Losartan Potassium 100 MG TABLET 0.5 TAB PO BID BP (Reported) Magnesium Oxide 400 MG TABLET 1 TAB PO DAILY SUPPLEMENT (Reported) Metoprolol Succinate 25 MG TAB 1 TAB PO DAILY BP (Reported) [place]-3 Acid Ethyl Esters (Lovaza) 1 GRAM CAPSULE 1 CAP PO BID CHOLESTEROL/ TRIGLYCERIDES (Reported) Oxycodone HCl/Acetaminophen (Oxycodone-Acetaminophen 10-325) 10 MG-325 MG TABLET 1 TAB PO Q6H PRN PAIN (Reported) Potassium Chloride 20 MEQ TAB.ER.PRT 1 TAB PO DAILY SUPPLEMENT (Reported) Rivaroxaban (Xarelto) 15 MG TABLET 1 TAB PO DAILY afib . Triage Nurses Notes Reviewed? yes HPI: Patient woke up this morning feeling very short of breath. Patient denies any chest pain or chest tightness. Patient was recently discharged Hospital after an admission for dyspnea. She states that she was in her usual state of health until this morning. Patient had wheezing in all [place] so received 2 DuoNeb's, IV Zofran, IV magnesium and Solu-Medrol by EMS. She denies vomiting. There are no fevers or chills. Past History Travel History Traveled to [place] past 21 day No Medical History Any Pertinent Medical History? see below for history Neurological: NONE EENT: NONE Cardiovascular: AFIB, CHF, hypertension, hyperlipidemia Respiratory: COPD, pneumonia, radiation pneumonitis non-small cell lung cancer s /p lobectomy 2006 2007, s/p radiation 2013, c/b radiation pneumonitis Gastrointestinal: carcinoid syndrome, s/p resection Hepatic: NONE Renal: NONE Musculoskeletal: osteoarthritis Psychiatric: NONE Endocrine: NONE Blood Disorders: NONE Cancer(s): lung cancer UPSETTER/Reproductive: NONE History of MRSA: No History of VRE: No History of CDIFF: No Tetanus Vaccine: 08/06/17 Surgical History Surgical History: appendectomy, cholecystectomy, hip replacement, hysterectomy, status post pulmonary lobectomies Psychosocial History Who do you live with Spouse Services at Home None What is your primary language Swiss Tobacco Use: Never used ETOH Use: denies use Illicit Drug Use: denies illicit drug use Family History Family History, If Any: BROTHER FH: heart attack DAUGHTER FH: breast cancer Relation not specified for: FH: throat cancer Hx Contributory? No Review of Systems Review of Systems Constitutional: Reports: no symptoms. EENTM: Reports: no symptoms. Respiratory: Reports: see HPI, short of breath. Cardiovascular: Reports: no symptoms. GI: Reports: no symptoms. Genitourinary: Reports: no symptoms. Musculoskeletal: Reports: no symptoms. Skin: Reports: no symptoms. Neurological/Psychological: Reports: no symptoms. Hematologic/Endocrine: Reports: no symptoms. Immunologic/Allergic: Reports: no symptoms. All Other Systems: Reviewed and Negative Physical Exam Physical Exam General Appearance: well developed/nourished, alert, awake, moderate distress Head: atraumatic, normal appearance Eyes: Bilateral: PERRL, EOMI. Ears, Nose, Throat: normal pharynx, normal ENT inspection, hearing grossly normal Neck: normal inspection, supple, full range of motion, NO JVD Respiratory: decreased breath sounds, wheezing, respiratory distress Cardiovascular: regular rate/rhythm, normal peripheral pulses Gastrointestinal: normal bowel sounds, soft, non-tender, no organomegaly Extremities: normal inspection, normal capillary refill, normal range of motion, pedal edema, HEALING WOUND LEFT ANDERS Neurologic/Psych: no motor/sensory deficits, awake, alert, oriented x 3, normal mood/affect Skin: normal color, warm/dry Lymphatic: no anterior cervical lazaro Core Measures ACS in differential dx? No CVA/TIA Diagnosis No Sepsis Present: No Sepsis Focused Exam Completed? No Progress Differential Diagnosis: asthma, AMI, bronchitis, CHF, COPD, pulmonary embolism, pneumonia, pneumothorax Plan of Care: Orders Procedure Date/time Status Heart Healthy Diet 01/19 B Active Patient Data 01/[address] in observation 01/19 0636 Active ED Holding Orders 01/19 0636 Active Vital Signs 01/19 0636 Active Code Status 01/19 0636 Active BLOOD CULTURE 01/19 0533 Active ARTERIAL BLOOD GAS (GEN) 01/19 0523 Complete Telemetry/Green Chain Worker 01/19 0523 Active URINALYSIS 01/19 0523 Active TROPONIN LEVEL 01/19 0523 Complete COMPREHENSIVE METABOLIC PANEL 01/19 0523 Complete CBC WITHOUT DIFFERENTIAL 01/19 0523 Complete B-TYPE NATRIURETIC PEP (BNP) 01/19 0523 Complete EKG 01/19 0519 Active Current Medications Sig/Heena Start time Last Medication Dose Stop Time Status Admin Ceftazidime 1,000 MG ONCE ONE 01/19 0615 UNVr 01/19 (Fortaz) 01/19 0616 0630 Vancomycin HCl 1,000 MG ONCE ONE 01/19 0615 UNir 01/19 Dextrose/Water 250 ML 01/19 0714 0630 (D5W) Laboratory Tests 02/26/18 0530: pH 7.48 H, pCO2 32 L, pO2 167 H, HCO3 23, ABG O2 Sat (Measured) 99.0, P-50 ( Temp Corrected) N, Carboxyhemoglobin 1.4 L, O2 Concentration % 6L, O2 Delivery Method NEB RX, Anion Gap 12, Estimated GFR > 60, BUN/Creatinine Ratio 24.3, Glucose 150 H, Calcium 9.0, Total Bilirubin 1.2, AST 18, ALT 23, Alkaline Phosphatase 72, Troponin I < 0.01, Wvn-W-Iocmpjafcio Pept 3150 H, Total Protein 6.0 L, Albumin 3.5, Globulin 2.5, Albumin/Globulin Ratio 1.4, CBC w Diff NO MAN DIFF REQ, RBC 3.29 L, MCV 77.1 L, MCH 25.2 L, MCHC 32.7 L, RDW 17.9 H, MPV 7.6, Gran % 80.9 H, Lymphocytes % 13.0 L, Monocytes % 5.9, Eosinophils % 0, Basophils % 0.2, Absolute Granulocytes 11.9 H, Absolute Lymphocytes 1.9, Absolute Monocytes 0.9 H, Absolute Eosinophils 0, Absolute Basophils 0, Phlebotomy Draw Site RIGHT RADIAL Microbiology 01/19 630 BLOOD: Blood Culture - RECD 01/19 535 BLOOD: Blood Culture - RECD Diagnostic Imaging: Viewed by Me: Radiology Read. Discussed w/RAD: Radiology Read. CXR Impression: PATIENT: THOMAS HDZ PRESENT AGE: 87 PATIENT ACCOUNT NO: [id number] : 30 LOCATION: [facility] ORDERING PHYSICIAN: Berny Huerta MD SERVICE DATE: 01/19/18 EXAM TYPE: RAD - XRY- PORTABLE CHEST XRAY EXAMINATION: XR PORTABLE CHEST CLINICAL INFORMATION: Shortness of breath COMPARISON: 12/24/2017 TECHNIQUE: Portable frontal view of the chest was obtained. FINDINGS: Low lung volumes. Small bilateral pleural effusions. Bibasilar opacities with diffuse bronchial wall thickening. No pneumothorax. The cardiomediastinal silhouette is unchanged, with a calcified aorta. IMPRESSION: Small bilateral pleural effusions with airspace opacity which could represent atelectasis or pneumonia. Diffuse bronchial wall thickening may be associated with a small airways process or fluid overload. DICTATED BY: Manuel HALL,Agapito DATE/TIME DICTATED:01/19/18600 [employer] SCI[employer]ORATORY TECHNICIAN: GLADYS DATE/TIME TRANSCRIBED:01/19/18600 CONFIDENTIAL, DO NOT COPY WITHOUT APPROPRIATE AUTHORIZATION. <Electronically signed in Other Vendor System> SIGNED BY: Agapito Jackson MD 01/19/18604 Pre-Hospital EKG: NSR, nonspecific ST T wave chg Initial ED EKG: NSR, nonspecific ST T wave chg Prior EKG: unchanged Comments: WBC INCREASED FROM 10 TO 14.7 Departure Departure Disposition: STILL A PATIENT Condition: Guarded Clinical Impression Primary Impression: Pneumonia Referrals: Antonio Lopez MD (PCP/Family) Departure Forms: Customer Survey General Discharge Information Observation Note Spoke With: Antonio Lopez MD Physician Advisor Notified: RL HALL,BERNY Becerril Place Patient In: Non-ED OBS Care Area Rationale for Observation: My rational for observation is as follows [patient has an elevated white blood cell count and chest x-ray findings consistent with pneumonia. Patient had acute onset of dyspnea. Patient has been out of the hospital for 10 days. Patient will receive broad-spectrum antibiotics. Patient will need a pulmonary consultation.]. Critical Care Note Critical Care Note Critical Care Time: non-applicable
[2018-01-19 05:46] LABS: ABSOLUTE BASOPHIL COUNT 0 /CUMM (0.0-0.2); ABSOLUTE EOSINOPHIL COUNT 0 /CUMM (0.0-0.7); ABSOLUTE GRANULOCYTE CT 11.9 /CUMM (1.4-6.5); ABSOLUTE LYMPH COUNT 1.9 /CUMM (1.2-3.4); ABSOLUTE MONOCYTE COUNT 0.9 /CUMM (0.10-0.60); BASOPHIL % 0.2 % (0.0-2.0); EOSINOPHIL % 0 % (0-5); GRANULOCYTE % 80.9 % (42.2-75.2); HEMATOCRIT 25.4 % (37-47); MEAN CORPUSCULAR HGB 25.2 PG (27.0-31.0); MEAN CORPUSCULAR HGB CONC 32.7 G/DL (33.0-37.0); MEAN CORPUSCULAR VOLUME 77.1 FL (81.0-99.0); MEAN PLATELET VOLUME 7.6 FL (7.4-10.4); PLATELET COUNT 370 /CUMM (130-400); RBC DISTRIBUTION WIDTH 17.9 % (11.5-14.5); RED BLOOD CELL CT 3.29 /CUMM (4.20-5.40); WHITE BLOOD CELL COUNT 14.7 /CUMM (4.8-10.8)
--- NOTE | 2018-01-19 06:05 | RADIOLOGY REPORT ---
EXAMINATION: XR PORTABLE CHEST CLINICAL INFORMATION: Shortness of breath COMPARISON: 12/24/2017 TECHNIQUE: Portable frontal view of the chest was obtained. FINDINGS: Low lung volumes. Small bilateral pleural effusions. Bibasilar opacities with diffuse bronchial wall thickening. No pneumothorax. The cardiomediastinal silhouette is unchanged, with a calcified aorta. IMPRESSION: Small bilateral pleural effusions with airspace opacity which could represent atelectasis or pneumonia. Diffuse bronchial wall thickening may be associated with a small airways process or fluid overload.
--- NOTE | 2018-01-19 08:44 | History & Physical ---
See Addendum General Information and HPI MD Statement: I have seen and personally examined THOMAS HDZ and documented this H&P. The patient is a 87 year old F who presented with a patient stated chief complaint of acute shortness of breath for 1 day. 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 She was admitted approximately 6weeks prior for left lower extremity trauma resulting in a hematoma. Patient was briefly treated with Unasyn for a possible secondary cellulitis but was afebrile without leukocytosis. The patient had wound hematoma evacuation performed at both the bedside and in the operating room requiring transfusion with two units of blood. Her hospitalization was complicated by respiratory distress and wheezing which treated with Azithromycin and prednisone, discharged two week prednisone taper. Patient was readmitted again from 01/07-01/09 for questionable cellulitis and left lower extremity wound infection. He was monitored off antibiotics. The patient was discharged home with instructions to continue wound care and follow up with Dr. Patterson and the wound care center and her primary care physician. Her wound was healing well with granulation tissue and she was following up at the wound care center and undergoing regular dressing changes with home health services. Patient reports sudden onset of shortness of breath last night. She denied any chest pain, palpitations, fever, chills, productive cough. She reports worsening shortness of breath at minimal rest, no improvement with her inhalers treatments. She denied any nausea, vomiting, abdominal pain, change in bladder or bowel habits. Patient denies smoking, currently abuse, illicit drug abuse. Allergies/Medications Allergies: Coded Allergies: adhesive tape (RASH ON SKIN THAT IT TOUCHES 10/22/17) iodine (DAVIS SKIN WHERE APPLIED 10/22/17) povidone-iodine (DAVIS SKIN WHERE IT IS APPLIED 10/22/17) shellfish derived (HIVES ALL OVER 10/22/17) propoxyphene (GI UPSET 10/22/17) Home Med list Albuterol Sulfate 2.5 MG/3 ML (0.083 %) VIAL.NEB 1 Vial INH/JULIO TID COPD ( Reported) Albuterol Sulfate (Ventolin Hfa) 90 MCG HFA.AER.AD 2 PUF INH Q4-6 PRN PRN SHORTNESS OF BREATH Aspirin (Ecotrin*) 81 MG TABLET.DR 1 TAB PO DAILY HEART (Reported) Atorvastatin Calcium (Lipitor) 20 MG TABLET 1 TAB PO QPM CHOLESTEROL ( Reported) Budesonide/Formoterol Fumarate (Symbicort 160-4.5 Mcg Inhaler) 160 MCG-4.5 MCG/ ACTUATION HFA.AER.AD 2 PUF INH BID COPD (Reported) Cholecalciferol (Vitamin D3) (Vitamin D3) 1,000 UNIT CAPSULE 1 CAP PO DAILY HEALTH SUPPLEMENT (Reported) Diltiazem HCl (Diltiazem 24HR Cd) 120 MG CAP.ER.24H 1 CAP PO DAILY HEART/BP ( Reported) Esomeprazole Magnesium (Nexium) 20 MG CAPSULE.DR 1 CAP PO DAILY ACID REFLUX ( Reported) Fluticasone Propionate 50 MCG/ACTUATION SPRAY.SUSP 2 SPRAY NASB DAILY ALLERGIES (Reported) Furosemide 40 MG TABLET 1 TAB PO BID DIURETIC (Reported) Guaifenesin (Mucinex) 1,200 MG TAB.ER.12H 1 TAB PO BID ALLERGIES (Reported) Losartan Potassium 100 MG TABLET 0.5 TAB PO BID BP (Reported) Magnesium Oxide 400 MG TABLET 1 TAB PO DAILY SUPPLEMENT (Reported) Metoprolol Succinate 25 MG TAB 1 TAB PO DAILY BP (Reported) [place]-3 Acid Ethyl Esters (Lovaza) 1 GRAM CAPSULE 1 CAP PO BID CHOLESTEROL/ TRIGLYCERIDES (Reported) Oxycodone HCl/Acetaminophen (Oxycodone-Acetaminophen 10-325) 10 MG-325 MG TABLET 1 TAB PO Q6H PRN PAIN (Reported) Potassium Chloride 20 MEQ TAB.ER.PRT 1 TAB PO DAILY SUPPLEMENT (Reported) Rivaroxaban (Xarelto) 15 MG TABLET 1 TAB PO DAILY afib . 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 spouse Services at Home: None Primary Language: Chadian ETOH Use: denies use Illicit Drug Use: denies illicit drug use Living Will? yes Functional Ability ADLs Independent: dressing, eating, toileting, bathing. Ambulation: independent IADLs Independent: shopping, housework, finances, food prep, telephone, transportation , medication admin. Review of Systems Review of Systems Constitutional: Denies: chills, diaphoresis, fever, malaise, weakness, unexplained weight loss. EENTM: Denies: blurred vision, double vision. Cardiovascular: Denies: chest pain, edema, orthopena, palpitations, peripheral edema, syncope. Respiratory: Reports: cough, short of breath, wheezing. Denies: hemoptysis, orthopnea, sputum production, stridor. GI: Denies: abdominal pain, bloating, constipation, distention, bowel incontinence, melena, nausea, changes in stool, vomiting. Genitourinary: Denies: discharge, dysuria, frequency. Musculoskeletal: Denies: back pain, gout, joint pain, joint swelling. Neurological/Psychological: Denies: anxiety, ataxia, confusion, depressed, headache, numbness. Exam & Diagnostic Data Last 24 Hrs of Vital Signs/I&O Vital Signs Date Time Temp Pulse Resp B/P B/P Pulse O2 O2 Flow FiO2 Mean Ox Delivery Rate 01/19 0859 98.8 99 20 140/69 97 Nasal 2.0L Cannula 01/19 0635 108 30 98 Nasal 2.0L Cannula 01/19 0537 97.1 102 30 162/70 85 Room Air 01/19 0530 Aerosol Mask Intake & Output 01/19 1600 01/19 0800 01/19 0000 Intake Total 250 Output Total Balance 250 Intake, IV 250 Patient 75.75 kg Weight Physical Exam General Appearance Alert, Oriented X3, Cooperative, No Acute Distress Skin No Rashes, No Breakdown Skin Temp/Moisture Exam: Warm/Dry Sepsis Skin Exam (color): Normal for Ethnicity HEENT Atraumatic, PERRLA, EOMI, Mucous Membr. moist/pink Neck Supple, No JVD Lymphatic Cervical nl Cardiovascular Normal S1, Normal S2, No Murmurs Lungs Normal Air Movement, b/l wheezes Abdomen Normal Bowel Sounds, Soft, No Tenderness Neurological Strength at 5/5 X4 Ext, Sensation Intact, Reflexes 2+ Extremities No Clubbing, No Cyanosis, No Edema, healing wound, lle Vascular Pulses Symmetrical Sepsis Peripheral Pulse Location: Radial Sepsis Peripheral Pulse Exam: Normal Sepsis Cap Refill Exam: <2 Sec Last 24 Hrs of Labs/Jem: Laboratory Tests 01/19/18 0530: pH 7.48 H, pCO2 32 L, pO2 167 H, HCO3 23, ABG O2 Sat (Measured) 99.0, P-50 ( Temp Corrected) N, Carboxyhemoglobin 1.4 L, O2 Concentration % 6L, O2 Delivery Method NEB RX, Anion Gap 12, Estimated GFR > 60, BUN/Creatinine Ratio 24.3, Glucose 150 H, Calcium 9.0, Total Bilirubin 1.2, AST 18, ALT 23, Alkaline Phosphatase 72, Troponin I < 0.01, Kcy-U-Zoqjdzteiqz Pept 3150 H, Total Protein 6.0 L, Albumin 3.5, Globulin 2.5, Albumin/Globulin Ratio 1.4, CBC w Diff NO MAN DIFF REQ, RBC 3.29 L, MCV 77.1 L, MCH 25.2 L, MCHC 32.7 L, RDW 17.9 H, MPV 7.6, Gran % 80.9 H, Lymphocytes % 13.0 L, Monocytes % 5.9, Eosinophils % 0, Basophils % 0.2, Absolute Granulocytes 11.9 H, Absolute Lymphocytes 1.9, Absolute Monocytes 0.9 H, Absolute Eosinophils 0, Absolute Basophils 0, Phlebotomy Draw Site RIGHT RADIAL Microbiology 01/19 836 URINE ROUT: Legionella Antigen - ORD 01/19 836 URINE ROUT: Streptococcus pneumoniae Antigen (M - ORD 01/19 835 LOWER RESP: Respiratory Culture - ORD 01/19 835 LOWER RESP: Gram Stain - ORD 01/19 630 BLOOD: Blood Culture - RECD 01/19 535 BLOOD: Blood Culture - RECD Assessment/Plan Assessment: 87-year-old female with past medical history significant for atrial fibrillation on anticoagulation, chronic diastolic congestive heart failure on Lasix, hypertension, hyperlipidemia, COPD not on home oxygen, 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 Vitals at the time of admission afebrile, heart rate 100, respiratory rate 30, blood pressure 160/70, saturating at 98 on 2 L. Pertinent labs Leukocytosis 14.7, hemoglobin 8.3, hematocrit 25, platelets 370. Sodium 138, potassium 3.7, BUN 17 and creatinine 0.7 Troponin negative LFTs normal ProBNP 3150 ABG 7.48, 23, 32. She received a dose of ceftaz, Vanco in the emergency room. Chest x-ray showed Small bilateral pleural effusions with airspace opacity which could represent atelectasis or pneumonia. Diffuse bronchial wall thickening may be associated with a small airways process or fluid overload. EKG, atrial fibrillation, rate 94, ventricular premature complexes 1. Acute shortness of breath possibly from pneumonia Patient presented with acute worsening shortness of breath with minimal exertion , not responding with inhaler treatments. Denied any pleuritic chest pain, palpitations, fever, chills, productive cough. She is tachycardic,tachypneic, hypoxic requiring 2 L oxygen supplementation. She was found to have leukocytosis 14.7. Chest x-ray findings shiowed small bilateral pleural effusions with airspace opacity representing atelectasis versus pneumonia * Most possible differentials - given her leukocytosis, worsening shortness of breath, chest x-ray findings of questionable pneumonia-she might have healthcare associated pneumonia versus acute on chronic diastolic heart failure however she has no JVD, no proBNP elevation, no chest x-ray findings suggestive of heart failure. PE might be a possibility given tachycardia, tachypnea, shortness of breath however she is on anticoagulants. Leukocytosis might be from recent use of steroids, left lower extremity cellulitis. * Placed under observation in general medicine floor * Monitor vitals every shift * Taper oxygen * Maintain oxygen saturation above 88 * Monitor for any fever * Trend leukocytosis * Provide total respiratory care * Inhaler and nebulizer treatments * IV steroids methylprednisolone 40 every 8hrs given her wheezing and shortness of breath * Broad-spectrum antibiotics -ceftaz and vancomycin * Pulmonary consult * Please follow-up pulmonary recommendations * Follow-up attending recommendations * Follow-up blood cultures, sputum cultures * Follow-up urine Legionella and streptococcal antigen 2. 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 Patient was briefly treated with Unasyn for a possible secondary cellulitis but was afebrile without leukocytosis. The patient had wound hematoma evacuation performed at both the bedside and in the operating room requiring transfusion with two units of blood. Her hospitalization was complicated by respiratory distress and wheezing which treated with Azithromycin and prednisone, discharged two week prednisone taper. Patient was readmitted again from 01/07-01/09 for questionable cellulitis and left lower extremity wound infection. she was monitored off antibiotics. The patient was discharged home with instructions to continue wound care and follow up with Dr. Patterson and the wound care center and her primary care physician. * Her wound was healing well with granulation tissue and she was following up at the wound care center and undergoing regular dressing changes with home health services. * Wound care consult * Daily dressings * Pain medication if required Atrial fibrillation continue aspirin, Cardizem 120 mg daily, and xaralto 15 daily Chronic diastolic heart failure continue home medication Lasix 40 twice daily Hypertension continue home medication losartan 50 twice daily, metoprolol succinate 25 daily Hyperlipidemia continue atorvastatin 20 daily COPD, not on home oxygen continue inhaler treatments, Mucinex GERD continue omeprazole Full code DVT prophylaxis on xaralto Regular diet Pain pathway ordered As Ranked By This Provider Problem List: 1. Leukocytosis 2. Pneumonia 3. Bronchitis Core Measures/Misc (08/10) Acute Coronary Syndrome ACS Diagnosis: No Congestive Heart Failure Congestive Heart Failure Diagnosis No Cerebrovascular Accident CVA/TIA Diagnosis: No VTE (View Protocol) VTE Risk Factors Age>40 No Mechanical VTE Prophylaxis d/t N/A MechProphylax Ordered No VTE Pharm Prophylaxis d/t NA PharmProphylax ordered Sepsis (View protocol) Sepsis Present: No
--- NOTE | 2018-01-19 10:35 | Admission Certification ---
Admission Certification Certification Statement - As attending physician, I certify that at the time of - admission, based on clinical presentation, severity of - symptoms, need for further diagnostic testing and - therapeutic interventions, and risk of adverse outcomes - without in-hospital treatment, in my clinical assessment, - this patient requires an acute hospital stay for a minimum - of two nights or longer. I have also considered psychsocial - factors such as support system, advanced age, financial - issues, cognitive issues, and failed out-patient treatments, - past re-admission history, safety of patient, and lack of - compliance as applicable. Specific rationale supporting this admission is: Shortness of breath, abnormal chest x-ray with possible new pneumonia and leukocytosis
--- NOTE | 2018-01-19 10:37 | PN- Att Addend ---
Attending Addendum Attending Brief Note 87-year-old white female with several comorbidities admitted recently was in the hospital and returned home in stable condition, tapering her steroids and following with the CHF 6/COPD clinic follow with her specialists, also following with the wound Center for her leg open area which is slowly getting better but again early this morning she became very short of breath, comes to the ER in respiratory distress chest x-ray shows possible no pneumonia plus some small pleural effusions the white count is slightly elevated but patient had been also on steroids. Patient will be admitted to have Dr. Horner reevaluate the patient. Will get her IV antibiotics and total respiratory care Current Medications Sig/Heena Start time Last Medication Dose Route Stop Time Status Admin Acetaminophen 650 MG Q6P PRN 01/19 0845 AC PO Acetaminophen 1,000 MG Q6P PRN 01/19 0845 AC IV Albuterol Sulfate 3 ML TID 01/19 1000 AC 01/19 INH 0937 Albuterol Sulfate 2 PUF Q4-6 PRN PRN 01/19 0845 AC INH Albuterol Sulfate 18 ML ONCE ONE 01/19 0530 DC 01/19 INH 01/19 0531 0528 Aspirin Buffered 81 MG DAILY 01/19 1000 AC 01/19 PO 0937 Atorvastatin Calcium 20 MG QPM 01/19 2200 AC PO Budesonide/ 2 PUF BID 01/19 1000 AC 01/19 Formoterol Fumarate INH 0937 Ceftazidime 1,000 MG Q12 01/19 2200 AC IV Ceftazidime 0 .STK-MED ONE 01/19 0629 DC .ROUTE Ceftazidime 1,000 MG ONCE ONE 01/19 0615 DC 01/19 IV 01/19 0616 0630 Cholecalciferol 1,000 IU DAILY 01/19 1000 AC 01/19 PO 0938 Diltiazem HCl 120 MG DAILY 01/19 1000 AC 01/19 PO 0936 Fluticasone 2 SPRAY DAILY 01/19 1000 AC 01/19 Propionate MARCO 0937 Furosemide 40 MG BID 01/19 1000 AC 01/19 PO 0937 Guaifenesin 1,200 MG Q12 01/19 1000 AC 01/19 PO 0937 Losartan Potassium 50 MG BID 01/19 1000 AC 01/19 PO 0937 Magnesium Oxide 400 MG DAILY 01/19 1000 AC 01/19 PO 0937 Methylprednisolone 40 MG Q8 01/19 1400 AC IV Metoprolol Succinate 25 MG DAILY 01/19 1000 AC 01/19 PO 0938 Omeprazole 40 MG DAILY AC 01/19 0839 AC 01/19 PO 0936 Ondansetron HCl 4 MG Q6P PRN 01/19 0845 AC IV Oxycodone/ 2 TAB Q6P PRN 01/19 0845 AC Acetaminophen PO Potassium Chloride 20 MEQ DAILY 01/19 1000 AC 01/19 PO 0937 Rivaroxaban 15 MG DAILY 01/19 1000 AC 01/19 PO 0938 Vancomycin HCl 1,000 MG DAILY 01/20 1000 AC Dextrose/Water 250 ML IV Vancomycin HCl 0 .STK-MED ONE 01/19 0630 DC .ROUTE Vancomycin HCl 1,000 MG ONCE ONE 01/19 0615 DC 01/19 Dextrose/Water 250 ML IV 01/19 0714 0630 Laboratory Tests 01/19/18 1025: Urine Color Pending, Urine Clarity Pending, Urine pH Pending, Ur Specific [place] Pending, Urine Protein Pending, Urine Ketones Pending, Urine Nitrite Pending, Urine Bilirubin Pending, Urine Urobilinogen Pending, Ur Leukocyte Esterase Pending, Ur Microscopic Pending, Urine Hemoglobin Pending, Urine Glucose Pending 01/19/18 0830: D-Dimer High Sensitivty 264 H 01/19/18 0530: pH 7.48 H, pCO2 32 L, pO2 167 H, HCO3 23, ABG O2 Sat (Measured) 99.0, P-50 ( Temp Corrected) N, Carboxyhemoglobin 1.4 L, O2 Concentration % 6L, O2 Delivery Method NEB RX, Anion Gap 12, Estimated GFR > 60, BUN/Creatinine Ratio 24.3, Glucose 150 H, Calcium 9.0, Total Bilirubin 1.2, AST 18, ALT 23, Alkaline Phosphatase 72, Troponin I < 0.01, Uoq-K-Wbyaecfczln Pept 3150 H, Total Protein 6.0 L, Albumin 3.5, Globulin 2.5, Albumin/Globulin Ratio 1.4, CBC w Diff NO MAN DIFF REQ, RBC 3.29 L, MCV 77.1 L, MCH 25.2 L, MCHC 32.7 L, RDW 17.9 H, MPV 7.6, Gran % 80.9 H, Lymphocytes % 13.0 L, Monocytes % 5.9, Eosinophils % 0, Basophils % 0.2, Absolute Granulocytes 11.9 H, Absolute Lymphocytes 1.9, Absolute Monocytes 0.9 H, Absolute Eosinophils 0, Absolute Basophils 0, Phlebotomy Draw Site RIGHT RADIAL
--- NOTE | 2018-01-19 12:22 | ULTRASOUND REPORT ---
EXAMINATION: US TRIPLEX OF LOWER EXTREMITIES, BILATERAL CLINICAL INFORMATION: Shortness of breath. Rule out DVT. Chronic wound in left lower extremity. COMPARISON: 08/16/2014 TECHNIQUE: Color-flow triplex imaging with spectral analysis and compression Doppler were performed on the lower extremities. FINDINGS: Normal compression and augmented flow are noted throughout the lower extremities. The visualized common femoral vein, superficial femoral vein, profunda femoral vein, popliteal vein and midcalf peroneal and posterior tibial venous segments show no evidence of deep venous thrombosis. Pulsatile venous waveforms are seen bilaterally, commonly seen with with right heart failure. There is no Mahoney's cyst. IMPRESSION: No evidence of deep venous thrombosis involving the lower extremities. Pulsatile venous waveforms in both lower extremities, commonly seen in the setting of right heart failure/elevated right heart pressures.
[2018-01-19 15:38] VITALS: BP 110/60
--- NOTE | 2018-01-19 18:01 | NUCLEAR MEDICINE REPORT ---
EXAMINATION: PULMONARY VENTILATION PERFUSION STUDY CLINICAL INFORMATION: Shortness of breath, desaturation. COMPARISON: The previous lung scan dated 08/04/2017 is available for comparison. A radiograph of the chest dated 01/19/2018, the same date as this lung scan, is available for comparison. TECHNIQUE: Serial dual detector gamma scintillation camera images were obtained over the chest in the RPO and LPO projections during the single breath, equilibrium rebreathing and washout of 10 mCi Xe 133 gas. The patient then received 4.9 mCi Tc-99m MAA intravenously and an 8-view perfusion study was performed. FINDINGS: Ventilation images: On the single breath and equilibrium images show decreased activity in the lung bases bilaterally, slightly more prominently on the left. Pertinent washout phase there is no abnormal retention. Perfusion images: No segmental perfusion defects are present. There is a nonsegmental band of decreased activity present across the left lower lobe extending from the lateral margin of the heart in extending laterally and posteriorly. There is also decreased activity at the right lung base, in a pattern that is well matched to the ventilation images, with no additional focal or anatomic appearing perfusion defects present. The ventilation and perfusion images are very well matched. The contemporaneous chest radiograph shows low lung volumes and small bilateral pleural effusions. There is a linear region of atelectasis 1 pneumonia as it is well matched to the abnormality in this region on the ventilation and perfusion images described above. Compared to the previous lung scan dated 08/04/2017, there is new nonsegmental perfusion abnormality present posteriorly in the right lower lobe. The perfusion to the left lung does not appear significantly changed. Gas trapping medially in the left lower lobe present on the previous study is not now present. IMPRESSION: Low probability of pulmonary embolism. Increasing ventilation and perfusion abnormalities posteromedially in the right lower lobe are well matched and probably due to increasing right pleural effusion, possibly superimposed on atelectasis or pneumonitis. Nonsegmental perfusion abnormalities in the left lower lobe are unchanged from the prior study and likely related to pleural effusion and/or atelectasis or pneumonitis.
[2018-01-19 22:23] VITALS: BP 118/68
--- NOTE | 2018-01-20 07:35 | PN- Housestaff ---
Subjective Follow-up For: -CAP -LT. LE CHRONIC WOUND Objective Last 24 Hrs of Vital Signs/I&O Vital Signs Date Time Temp Pulse Resp B/P B/P Pulse O2 O2 Flow FiO2 Mean Ox Delivery Rate 01/20 0930 99 146/64 01/20 0929 99 146/64 01/20 0910 93 Nasal 2.0L Cannula 01/20 0836 97.8 99 18 146/64 94 Nasal 2.0L Cannula 01/20 0800 94 Nasal 2.0L Cannula 01/20 0617 96 Nasal 2.0L Cannula 01/19 2223 97.6 98 24 118/68 94 Nasal 2.0L Cannula 01/19 2200 Nasal Cannula 01/19 1616 98 Nasal 2.0L Cannula 01/19 1538 98.6 65 24 110/60 96 Nasal 2.0L Cannula 01/19 1502 Nasal 2.0L Cannula 01/19 1424 96 Nasal 2.0L Cannula 01/19 1423 97.4 78 24 118/63 96 Nasal 2.0L Cannula 01/19 1215 98.0 102 24 142/76 96 Nasal 2.0L Cannula 01/19 1145 Nasal 2.0L Cannula 01/19 1115 95 Nasal 2.0L Cannula 01/19 1115 97.6 97 22 133/66 97 Nasal 2.0L Cannula Intake & Output 01/20 1600 01/20 0800 01/20 0000 Intake Total 120 120 Output Total 550 Balance -430 120 Intake, Oral 120 120 Number 0 0 Bowel Movements Output, Urine 550 Current Medications: Current Medications Sig/Heena Start time Last Medication Dose Route Stop Time Status Admin Acetaminophen 650 MG Q6P PRN 01/19 0845 AC PO Acetaminophen 1,000 MG Q6P PRN 01/19 0845 AC IV Albuterol Sulfate 3 ML EVERY 4 HRS/AWAKE 01/19 1200 AC 01/20 INH 0606 Albuterol Sulfate 3 ML TID 01/19 1000 AC 01/19 INH 1613 Albuterol Sulfate 2 PUF Q4-6 PRN PRN 01/19 0845 AC INH Aspirin Buffered 81 MG DAILY 01/19 1000 AC 01/20 PO 0929 Atorvastatin Calcium 20 MG QPM 01/19 2200 AC 01/19 PO 2113 Budesonide/ 2 PUF BID 01/19 1000 AC 01/20 Formoterol Fumarate INH 0934 Ceftazidime 1,000 MG Q12 01/19 2200 CAN IV Ceftriaxone Sodium 1,000 MG DAILY 01/20 1000 AC 01/20 IV 0929 Cholecalciferol 1,000 IU DAILY 01/19 1000 AC 01/20 PO 0930 Diltiazem HCl 120 MG DAILY 01/19 1000 AC 01/20 PO 0929 Fluticasone 2 SPRAY DAILY 01/19 1000 AC 01/20 Propionate MARCO 0929 Furosemide 0 .STK-MED ONE 01/19 1411 DC IV Furosemide 20 MG ONCE ONE 01/19 1245 DC 01/19 IV 01/19 1246 1411 Furosemide 40 MG BID 01/19 1000 AC 01/20 PO 0929 Guaifenesin 1,200 MG Q12 01/19 1000 AC 01/20 PO 0930 Losartan Potassium 50 MG BID 01/19 1000 AC 01/20 PO 0929 Magnesium Oxide 400 MG DAILY 01/19 1000 AC 01/20 PO 0929 Methylprednisolone 40 MG Q12 01/20 1000 AC 01/20 IV 0929 Methylprednisolone 40 MG Q8 01/19 1400 DC 01/20 IV 0542 Metoprolol Succinate 25 MG DAILY 01/19 1000 AC 01/20 PO 0930 Omeprazole 40 MG DAILY AC 01/19 0839 AC 01/20 PO 0542 Ondansetron HCl 4 MG Q6P PRN 01/19 0845 AC 01/20 IV 0835 Oxycodone/ 2 TAB Q6P PRN 01/19 0845 AC [facility] PO Potassium Chloride 20 MEQ DAILY 01/19 1000 AC 01/20 PO 0929 Rivaroxaban 15 MG DAILY 01/19 1000 AC 01/20 PO 0930 Vancomycin HCl 1,000 MG DAILY 01/20 1000 CAN Dextrose/Water 250 ML IV Last 24 Hrs of Lab/Jem Results Last 24 Hrs of Labs/Mics: Laboratory Tests 01/20/18 0614: Anion Gap 13, Estimated GFR > 60, BUN/Creatinine Ratio 25.0, CBC w Diff NO MAN DIFF REQ, RBC 3.07 L, MCV 77.1 L, MCH 24.8 L, MCHC 32.2 L, RDW 18.0 H, MPV 8.1, Gran % 90.4 H, Lymphocytes % 6.5 L, Monocytes % 3.1, Eosinophils % 0, Basophils % 0, Absolute Granulocytes 9.0 H, Absolute Lymphocytes 0.7 L, Absolute Monocytes 0.3, Absolute Eosinophils 0, Absolute Basophils 0 01/19/18 2337: Urine Color STRAW, Urine Clarity CLEAR, Urine pH 6.5, Ur Specific [place] 1.015, Urine Protein NEG, Urine Ketones NEG, Urine Nitrite NEG, Urine Bilirubin NEG, Urine Urobilinogen 0.2, Ur Leukocyte Esterase NEG, Ur Microscopic EXAM NOT REQUIRED, Urine Hemoglobin NEG, Urine Glucose NEG Microbiology 01/19 1250 NASOPHARYN: Influenza Virus A & B Rapid Smear - COMP Assessment/Plan Assessment: 87-year-old female with past medical history significant for atrial fibrillation on anticoagulation, chronic diastolic congestive heart failure on Lasix, hypertension, hyperlipidemia, COPD not on home oxygen, 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 1. CAP: * Urine stept is positive for strept. pneumonia, antibiotic switched yesterday to IV ceftriaxone * PE r/o on V/Q scan which showed low probability of PE * Placed under observation in general medicine floor * Monitor vitals every shift * Taper oxygen * Maintain oxygen saturation above 88 * Monitor for any fever * Trend leukocytosis * Provide total respiratory care * Inhaler and nebulizer treatments * IV steroids methylprednisolone 40 mg decreased to every 12hrs * Pulmonary consult placed 2. Chronic left lower extremity wound * Her wound was healing well with granulation tissue and she was following up at the wound care center and undergoing regular dressing changes with home health services. * Wound care consult palced with Dr. Mckeon * Daily dressings * Pain medication if required #Atrial fibrillation continue aspirin, Cardizem 120 mg daily, and xaralto 15 daily #Chronic diastolic heart failure continue home medication Lasix 40 twice daily #Hypertension continue home medication losartan 50 twice daily, metoprolol succinate 25 daily #Hyperlipidemia continue atorvastatin 20 daily #COPD, not on home oxygen continue inhaler treatments, Mucinex #GERD continue omeprazole Full code DVT prophylaxis on xaralto Regular diet Pain pathway ordered Problem List: 1. Pneumonia Pain Ratin Pain Location: - Pain Goal: Remain pain free (-) Pain Plan: - Tomorrow's Labs & Rationales: cbc, bep DVT/Prophylaxis: mechanical, pharmacological
[2018-01-20 08:16] LABS: ABSOLUTE BASOPHIL COUNT 0 /CUMM (0.0-0.2); ABSOLUTE EOSINOPHIL COUNT 0 /CUMM (0.0-0.7); ABSOLUTE LYMPH COUNT 0.7 /CUMM (1.2-3.4); ABSOLUTE MONOCYTE COUNT 0.3 /CUMM (0.10-0.60); BASOPHIL % 0 % (0.0-2.0); EOSINOPHIL % 0 % (0-5); HEMATOCRIT 23.6 % (37-47); MEAN CORPUSCULAR HGB 24.8 PG (27.0-31.0); MEAN CORPUSCULAR HGB CONC 32.2 G/DL (33.0-37.0); MEAN CORPUSCULAR VOLUME 77.1 FL (81.0-99.0); MEAN PLATELET VOLUME 8.1 FL (7.4-10.4); PLATELET COUNT 350 /CUMM (130-400); RED BLOOD CELL CT 3.07 /CUMM (4.20-5.40)
[2018-01-20 08:36] VITALS: BP 146/64
[2018-01-20 09:17] LABS: GRANULOCYTE % 90.4 % (42.2-75.2)
--- NOTE | 2018-01-20 10:05 | PN- Att Addend ---
Attending Addendum Attending Brief Note Patient in bed still short of breath. The leg wound was checked and that luckily is improving Vital signs are stable she has no fever. No major changes on physical Leg ultrasounds showed no evidence of DVT. Continue treatment of her pneumonia and her respiratory treatments and her oxygen. 24 TOTALS 01/20 0000 01/19 0000 Intake Total 370 Output Total Balance 370 Intake, IV 250 Intake, Oral 120 Number 0 Bowel Movements Patient 167 lb Weight Current Medications Sig/Heena Start time Last Medication Dose Route Stop Time Status Admin Acetaminophen 650 MG Q6P PRN 01/19 0845 AC PO Acetaminophen 1,000 MG Q6P PRN 01/19 0845 AC IV Albuterol Sulfate 3 ML EVERY 4 HRS/AWAKE 01/19 1200 AC 01/20 INH 0606 Albuterol Sulfate 3 ML TID 01/19 1000 AC 01/19 INH 1613 Albuterol Sulfate 2 PUF Q4-6 PRN PRN 01/19 0845 AC INH Aspirin Buffered 81 MG DAILY 01/19 1000 AC 01/20 PO 0929 Atorvastatin Calcium 20 MG QPM 01/19 2200 AC 01/19 PO 2113 Budesonide/ 2 PUF BID 01/19 1000 AC 01/20 Formoterol Fumarate INH 0934 Ceftazidime 1,000 MG Q12 01/19 2200 CAN IV Ceftriaxone Sodium 1,000 MG DAILY 01/20 1000 AC 01/20 IV 0929 Cholecalciferol 1,000 IU DAILY 01/19 1000 AC 01/20 PO 0930 Diltiazem HCl 120 MG DAILY 01/19 1000 AC 01/20 PO 0929 Fluticasone 2 SPRAY DAILY 01/19 1000 AC 01/20 Propionate MARCO 0929 Furosemide 0 .STK-MED ONE 01/19 1411 DC IV Furosemide 20 MG ONCE ONE 01/19 1245 DC 01/19 IV 01/19 1246 1411 Furosemide 40 MG BID 01/19 1000 AC 01/20 PO 0929 Guaifenesin 1,200 MG Q12 01/19 1000 AC 01/20 PO 0930 Losartan Potassium 50 MG BID 01/19 1000 AC 01/20 PO 0929 Magnesium Oxide 400 MG DAILY 01/19 1000 AC 01/20 PO 0929 Methylprednisolone 40 MG Q12 01/20 1000 AC 01/20 IV 0929 Methylprednisolone 40 MG Q8 01/19 1400 DC 01/20 IV 0542 Metoprolol Succinate 25 MG DAILY 01/19 1000 AC 01/20 PO 0930 Omeprazole 40 MG DAILY AC 01/19 0839 AC 01/20 PO 0542 Ondansetron HCl 4 MG Q6P PRN 01/19 0845 AC 01/20 IV 0835 Oxycodone/ 2 TAB Q6P PRN 01/19 0845 AC Acetaminophen PO Potassium Chloride 20 MEQ DAILY 01/19 1000 AC 01/20 PO 0929 Rivaroxaban 15 MG DAILY 01/19 1000 AC 01/20 PO 0930 Vancomycin HCl 1,000 MG DAILY 01/20 1000 CAN Dextrose/Water 250 ML IV Laboratory Tests 01/20/18 0614: Anion Gap 13, Estimated GFR > 60, BUN/Creatinine Ratio 25.0, CBC w Diff NO MAN DIFF REQ, RBC 3.07 L, MCV 77.1 L, MCH 24.8 L, MCHC 32.2 L, RDW 18.0 H, MPV 8.1, Gran % 90.4 H, Lymphocytes % 6.5 L, Monocytes % 3.1, Eosinophils % 0, Basophils % 0, Absolute Granulocytes 9.0 H, Absolute Lymphocytes 0.7 L, Absolute Monocytes 0.3, Absolute Eosinophils 0, Absolute Basophils 0 01/19/18 2337: Urine Color STRAW, Urine Clarity CLEAR, Urine pH 6.5, Ur Specific [place] 1.015, Urine Protein NEG, Urine Ketones NEG, Urine Nitrite NEG, Urine Bilirubin NEG, Urine Urobilinogen 0.2, Ur Leukocyte Esterase NEG, Ur Microscopic EXAM NOT REQUIRED, Urine Hemoglobin NEG, Urine Glucose NEG 01/19/18 1025: Urinalysis LIGHT H, Urine Color YEL, Urine Clarity CLEAR, Urine pH 6.5, Ur Specific [place] 1.020, Urine Protein NEG, Urine Ketones TRACE H, Urine Nitrite NEG, Urine Bilirubin NEG, Urine Urobilinogen 0.2, Ur Leukocyte Esterase NEG, Ur Microscopic SEDIMENT EXAMINED, Urine RBC 3-5, Urine WBC 3-5 H, Ur Epithelial Cells FEW, Urine Bacteria FEW H, Hyaline Casts RARE H, Urine Mucus FEW, Urine Hemoglobin TRACE-INTACT, Urine Glucose NEG 01/19/18 0830: D-Dimer High Sensitivty 264 H 01/19/18 0530: pH 7.48 H, pCO2 32 L, pO2 167 H, HCO3 23, ABG O2 Sat (Measured) 99.0, P-50 ( Temp Corrected) N, Carboxyhemoglobin 1.4 L, O2 Concentration % 6L, O2 Delivery Method NEB RX, Anion Gap 12, Estimated GFR > 60, BUN/Creatinine Ratio 24.3, Glucose 150 H, Calcium 9.0, Total Bilirubin 1.2, AST 18, ALT 23, Alkaline Phosphatase 72, Troponin I < 0.01, Sda-A-Tepyubhwnxv Pept 3150 H, Total Protein 6.0 L, Albumin 3.5, Globulin 2.5, Albumin/Globulin Ratio 1.4, CBC w Diff NO MAN DIFF REQ, RBC 3.29 L, MCV 77.1 L, MCH 25.2 L, MCHC 32.7 L, RDW 17.9 H, MPV 7.6, Gran % 80.9 H, Lymphocytes % 13.0 L, Monocytes % 5.9, Eosinophils % 0, Basophils % 0.2, Absolute Granulocytes 11.9 H, Absolute Lymphocytes 1.9, Absolute Monocytes 0.9 H, Absolute Eosinophils 0, Absolute Basophils 0, Phlebotomy Draw Site RIGHT RADIAL Microbiology 01/19 1250 NASOPHARYN: Influenza Virus A & B Rapid Smear - COMP 01/19 1025 URINE ROUT: Legionella Antigen - COMP 01/19 1025 URINE ROUT: Streptococcus pneumoniae Antigen (M - COMP STREP PNEUMO BACTERIAL AG Vital Signs Date Time Temp Pulse Resp B/P B/P Pulse O2 O2 Flow FiO2 Mean Ox Delivery Rate 01/20 0930 99 146/64 01/20 0929 99 14664 01/20 0910 93 Nasal 2.0L Cannula 01/20 0836 97.8 99 18 146/64 94 Nasal 2.0L Cannula 01/20 0800 94 Nasal 2.0L Cannula 01/20 0617 96 Nasal 2.0L Cannula 01/19 2223 97.6 98 24 118/68 94 Nasal 2.0L Cannula 01/19 2200 Nasal Cannula 01/19 1616 98 Nasal 2.0L Cannula 01/19 1538 98.6 65 24 110/60 96 Nasal 2.0L Cannula 01/19 1502 Nasal 2.0L Cannula 01/19 1424 96 Nasal 2.0L Cannula 01/19 1423 97.4 78 24 118/63 96 Nasal 2.0L Cannula 01/19 1215 98.0 102 24 142/76 96 Nasal 2.0L Cannula 01/19 1145 Nasal 2.0L Cannula 01/19 1115 95 Nasal 2.0L Cannula 01/19 1115 97.6 97 22 133/66 97 Nasal 2.0L Cannula White count down to 10,000 today.
--- NOTE | 2018-01-20 10:38 | Cons- Pulmonary ---
General Information and HPI Consulting Request Date of Consult: 01/20/18 Requested By: Erum Reason for Consult: Shortness of breath community acquired pneumonia pneumococcal History of Present Illness: Patient is an 87-year-old with history of lung cancer carcinoid radiation therapy recent evaluation for traumatic left leg hematoma is admitted with increasing shortness of breath and cough. Evaluation for pulmonary embolism was unrevealing. Chest x-ray suggests possible right lower lobe density though there are increased markings in association with elevated BNP. She has had blood streaking of her sputum this morning. Allergies/Medications Allergies: Coded Allergies: adhesive tape (RASH ON SKIN THAT IT TOUCHES 10/22/17) iodine (DAVIS SKIN WHERE APPLIED 10/22/17) povidone-iodine (DAVIS SKIN WHERE IT IS APPLIED 10/22/17) shellfish derived (HIVES ALL OVER 10/22/17) propoxyphene (GI UPSET 10/22/17) Home Med List: Albuterol Sulfate 2.5 MG/3 ML (0.083 %) VIAL.NEB 1 Vial INH/JULIO TID COPD ( Reported) Albuterol Sulfate (Ventolin Hfa) 90 MCG HFA.AER.AD 2 PUF INH Q4-6 PRN PRN SHORTNESS OF BREATH Aspirin (Ecotrin*) 81 MG TABLET.DR 1 TAB PO DAILY HEART (Reported) Atorvastatin Calcium (Lipitor) 20 MG TABLET 1 TAB PO QPM CHOLESTEROL ( Reported) Budesonide/Formoterol Fumarate (Symbicort 160-4.5 Mcg Inhaler) 160 MCG-4.5 MCG/ ACTUATION HFA.AER.AD 2 PUF INH BID COPD (Reported) Cholecalciferol (Vitamin D3) (Vitamin D3) 1,000 UNIT CAPSULE 1 CAP PO DAILY HEALTH SUPPLEMENT (Reported) Diltiazem HCl (Diltiazem 24HR Cd) 120 MG CAP.ER.24H 1 CAP PO DAILY HEART/BP ( Reported) Esomeprazole Magnesium (Nexium) 20 MG CAPSULE.DR 1 CAP PO DAILY ACID REFLUX ( Reported) Fluticasone Propionate 50 MCG/ACTUATION SPRAY.SUSP 2 SPRAY NASB DAILY ALLERGIES (Reported) Furosemide 40 MG TABLET 1 TAB PO BID DIURETIC (Reported) Guaifenesin (Mucinex) 1,200 MG TAB.ER.12H 1 TAB PO BID ALLERGIES (Reported) Losartan Potassium 100 MG TABLET 0.5 TAB PO BID BP (Reported) Magnesium Oxide 400 MG TABLET 1 TAB PO DAILY SUPPLEMENT (Reported) Metoprolol Succinate 25 MG TAB 1 TAB PO DAILY BP (Reported) Donora-3 Acid Ethyl Esters (Lovaza) 1 GRAM CAPSULE 1 CAP PO BID CHOLESTEROL/ TRIGLYCERIDES (Reported) Oxycodone HCl/Acetaminophen (Oxycodone-Acetaminophen 10-325) 10 MG-325 MG TABLET 1 TAB PO Q6H PRN PAIN (Reported) Potassium Chloride 20 MEQ TAB.ER.PRT 1 TAB PO DAILY SUPPLEMENT (Reported) Rivaroxaban (Xarelto) 15 MG TABLET 1 TAB PO DAILY afib . Review of Systems Review of Systems Constitutional: Denies: chills, fever. Cardiovascular: Denies: chest pain. Respiratory: Reports: cough, hemoptysis, short of breath, sputum production. GI: Denies: abdominal pain, diarrhea, melena. 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 spouse Services at Home: None Primary Language: Bahamian Smoking Status: Never Smoked ETOH Use: denies use Illicit Drug Use: denies illicit drug use Living Will? yes Functional Ability ADLs Independent: dressing, eating, toileting, bathing. Ambulation: independent IADLs Independent: shopping, housework, finances, food prep, telephone, transportation , medication admin. Exam & Diagnostic Data Last 24 Hrs of Vital Signs/I&O Vital Signs Date Time Temp Pulse Resp B/P B/P Pulse O2 O2 Flow FiO2 Mean Ox Delivery Rate 01/20 0930 99 146/64 01/20 0929 99 14664 01/20 0910 93 Nasal 2.0L Cannula 01/20 0836 97.8 99 18 146/64 94 Nasal 2.0L Cannula 01/20 0800 94 Nasal 2.0L Cannula 01/20 0617 96 Nasal 2.0L Cannula 01/19 2223 97.6 98 24 118/68 94 Nasal 2.0L Cannula 01/19 2200 Nasal Cannula 01/19 1616 98 Nasal 2.0L Cannula 01/19 1538 98.6 65 24 110/60 96 Nasal 2.0L Cannula 01/19 1502 Nasal 2.0L Cannula 01/19 1424 96 Nasal 2.0L Cannula 01/19 1423 97.4 78 24 118/63 96 Nasal 2.0L Cannula 01/19 1215 98.0 102 24 142/76 96 Nasal 2.0L Cannula 01/19 1145 Nasal 2.0L Cannula 01/19 1115 95 Nasal 2.0L Cannula 01/19 1115 97.6 97 22 133/66 97 Nasal 2.0L Cannula Intake & Output 01/20 1600 01/20 0800 01/20 0000 Intake Total 120 120 Output Total 550 Balance -430 120 Intake, Oral 120 120 Number 0 0 Bowel Movements Output, Urine 550 Oxygen saturation 2 L 93% exam for chest showed mildly diminished breath sounds at the bases there are scant crackles there are no wheezes cardiac exam shows a regular S1 and S2 without murmurs a left lower extremity wound is much improved with greater than 90% granulation tissue there is no periwound erythema Last 48 Hrs of Labs/Jem: Laboratory Tests 01/20/18 0614: Anion Gap 13, Estimated GFR > 60, BUN/Creatinine Ratio 25.0, CBC w Diff NO MAN DIFF REQ, RBC 3.07 L, MCV 77.1 L, MCH 24.8 L, MCHC 32.2 L, RDW 18.0 H, MPV 8.1, Gran % 90.4 H, Lymphocytes % 6.5 L, Monocytes % 3.1, Eosinophils % 0, Basophils % 0, Absolute Granulocytes 9.0 H, Absolute Lymphocytes 0.7 L, Absolute Monocytes 0.3, Absolute Eosinophils 0, Absolute Basophils 0 01/19/18 0831: Urine Color STRAW, Urine Clarity CLEAR, Urine pH 6.5, Ur Specific [place] 1.015, Urine Protein NEG, Urine Ketones NEG, Urine Nitrite NEG, Urine Bilirubin NEG, Urine Urobilinogen 0.2, Ur Leukocyte Esterase NEG, Ur Microscopic EXAM NOT REQUIRED, Urine Hemoglobin NEG, Urine Glucose NEG 01/19/18 1025: Urinalysis LIGHT H, Urine Color YEL, Urine Clarity CLEAR, Urine pH 6.5, Ur Specific [place] 1.020, Urine Protein NEG, Urine Ketones TRACE H, Urine Nitrite NEG, Urine Bilirubin NEG, Urine Urobilinogen 0.2, Ur Leukocyte Esterase NEG, Ur Microscopic SEDIMENT EXAMINED, Urine RBC 3-5, Urine WBC 3-5 H, Ur Epithelial Cells FEW, Urine Bacteria FEW H, Hyaline Casts RARE H, Urine Mucus FEW, Urine Hemoglobin TRACE-INTACT, Urine Glucose NEG 01/19/18 0830: D-Dimer High Sensitivty 264 H 01/19/18 0530: pH 7.48 H, pCO2 32 L, pO2 167 H, HCO3 23, ABG O2 Sat (Measured) 99.0, P-50 ( Temp Corrected) N, Carboxyhemoglobin 1.4 L, O2 Concentration % 6L, O2 Delivery Method NEB RX, Anion Gap 12, Estimated GFR > 60, BUN/Creatinine Ratio 24.3, Glucose 150 H, Calcium 9.0, Total Bilirubin 1.2, AST 18, ALT 23, Alkaline Phosphatase 72, Troponin I < 0.01, Ede-L-Naqfppuyqwn Pept 3150 H, Total Protein 6.0 L, Albumin 3.5, Globulin 2.5, Albumin/Globulin Ratio 1.4, CBC w Diff NO MAN DIFF REQ, RBC 3.29 L, MCV 77.1 L, MCH 25.2 L, MCHC 32.7 L, RDW 17.9 H, MPV 7.6, Gran % 80.9 H, Lymphocytes % 13.0 L, Monocytes % 5.9, Eosinophils % 0, Basophils % 0.2, Absolute Granulocytes 11.9 H, Absolute Lymphocytes 1.9, Absolute Monocytes 0.9 H, Absolute Eosinophils 0, Absolute Basophils 0, Phlebotomy Draw Site RIGHT RADIAL Microbiology 01/19 1250 NASOPHARYN: Influenza Virus A & B Rapid Smear - COMP 01/19 102 URINE ROUT: Legionella Antigen - COMP 01/19 102 URINE ROUT: Streptococcus pneumoniae Antigen (M - COMP STREP PNEUMO BACTERIAL AG Assessment/Plan Impression/Plan: 87-year-old woman with history of COPD non-oxygen dependent lung cancer status post resection and radiation congestive heart failure admitted with increasing shortness of breath in the setting of positive urinary pneumococcal antigen and elevated BNP. Recommendations: Recommend noncontrast CT scan of the chest in view of hemoptysis and history of lung cancer. Obtain sputum C&S and sputum for cytology. Continue antibiotics. IV steroids can be rapidly tapered as there is no evidence of bronchospasm. Further evaluation of anemia by primary care team Consult Acknowledgment - Thank you for your consult request.
[2018-01-20 15:44] VITALS: BP 136/52
[2018-01-20 15:48] VITALS: BP 134/70
--- NOTE | 2018-01-20 17:00 | CT SCAN REPORT ---
EXAMINATION: CT CHEST WITHOUT CONTRAST CLINICAL INFORMATION: Hemoptysis, shortness of breath. Assess lung opacity on chest x-ray. COMPARISON: X-ray 01/19/2018, CT 08/28/2017. TECHNIQUE: Multidetector volumetric CT imaging of the chest was done. Axial MIP volume rendering provided. Sagittal and coronal reformatted images were obtained. FINDINGS: LUNGS: Redemonstrated are postsurgical changes from lower lobe lobectomies. Trachea and mainstem bronchus are patent. There is diffuse heterogeneous attenuation of the lung parenchyma. This is characterized by a mixture of ground-glass opacities, patchy airspace opacities, interlobular septal thickening, with areas of reticular nodular opacities.. Overall, the finding is improved as compared to the prior study. There are peribronchial opacity/thickening in the left perihilar region extending to the lower lung zone. Patchy airspace opacity in the left lower lung zone. MEDIASTINUM: Nonspecific subcentimeter lymph nodes in the mediastinum. No hilar lymphadenopathy. Heart is enlarged. Calcification of the mitral valve annulus. No pericardial effusion. Ascending aorta measures 3.8 cm at the level of the main pulmonary artery. PLEURA: Small right greater than left pleural effusions. AXILLA: No lymphadenopathy. UPPER ABDOMEN: Unremarkable. OSSEOUS STRUCTURES: Multilevel degenerative changes in the spine. IMPRESSION: 1. Diffuse heterogeneous attenuation of the lungs, with a mixture of ground-glass and interstitial opacities, (crazy paving pattern), overall improved as compared to previous. Findings are nonspecific, with a broad differential, including infectious or bacterial viral pneumonia, pulmonary hemorrhage syndrome, alveolar proteinosis. 2. Component of patchy airspace opacities, as well as peribronchial opacity/thickening in the left perihilar region extending to the left lower lung zones. This could reflect a component of acute infectious process superimposed on chronic changes. Follow-up imaging is recommended. 3. Cardiomegaly. 4. Small right greater than left pleural effusions.
[2018-01-20 22:00] VITALS: BP 158/80
--- NOTE | 2018-01-21 07:20 | PN- Housestaff ---
Subjective Follow-up For: Strep pneumonia hemoptysis low H&H Subjective: Seen and examined Patient remianed stable overnight. she reports improvement in her cough, phelgm production. She denies any further hemoptysis. Review of Systems Constitutional: Reports: see HPI. Objective Last 24 Hrs of Vital Signs/I&O Vital Signs Date Time Temp Pulse Resp B/P B/P Pulse O2 O2 Flow FiO2 Mean Ox Delivery Rate 01/20 2234 97 Nasal 2.0L Cannula 01/20 2200 98.4 97 24 158/80 97 Nasal 2.0L Cannula 01/20 2021 84 158/80 01/20 1628 97 Nasal 2.0L Cannula 01/20 1548 98.5 104 20 134/70 91 01/20 1544 97.6 80 22 136/52 96 01/20 0930 99 146/64 01/20 0929 99 146/64 01/20 0910 93 Nasal 2.0L Cannula 01/20 0836 97.8 99 18 146/64 94 Nasal 2.0L Cannula 01/20 0800 94 Nasal 2.0L Cannula Intake & Output 01/21 0800 01/21 0000 01/20 1600 Intake Total 240 360 643 Output Total 475 200 700 Balance -235 160 -57 Intake, IV 43 Intake, Oral 240 360 600 Number 1 1 Bowel Movements Output, Urine 475 200 700 Patient 75.75 kg Weight Weight Reported by Patient Measurement Method Physical Exam General Appearance: Alert, Oriented X3, Cooperative Skin: No Rashes, No Breakdown HEENT: Atraumatic, PERRLA, EOMI Neck: Supple, No JVD Cardiovascular: Normal S1, Normal S2 Assessment/Plan Assessment: 87-year-old female with PMH significant for A.fib on anticoagulation, chronic diastolic CHF on Lasix, HTN, HLD, COPD not on home oxygen, NSCLC and carcinoid tumor, with B/L lobectomies and s/p radiation for a lingular nodule, and radiation pneumonitis, multinodular thyroid gland, GERD, osteoarthritis, left lower extremity open wound presented to the hospital for evaluation of acute shortness of breath. Admitted to [facility] as gen med hold for Strep pneumonia, transferred to general medicine floor today. Problem list 1. Community accquired Step pneumonia 2. Atrial fibrillation 3. Chronic diastolic heart failure 4. Hypertension 5. Hyperlipidemia 6. COPD 7. GERD 8. Chronic left lower extremity wound Community acquired Strep pneumonia Urine strep test positive and continued on IV ceftriaxone day 3. started experiencing hemoptysis since yesterday with small drop in H&H. CT chest did show diffuse heterogenous attenuation with superadded infectious process in the left lower lobe region. Continue oral steroid taper. Try to taper oxygen down. She was ruled out for PE with VQ scan given elevated D-dimer with history of cancer. Chronic left lower extremity wound She has wound that is healing well with granulation tissue and she was following up at the wound care center and undergoing regular dressing changes with home health services. Wound care consult palced with Dr. Mckeon. Daily dressings Acute drop in H&H Patient was admitted with H&H 8.02/15 --> 7.12/14. she did have hemoptysis briefly since yesterday. she had a history of diastolic failure with good EF. 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 Type and cross match. #Atrial fibrillation continue aspirin, Cardizem 120 mg daily, and xaralto 15 daily #Chronic diastolic heart failure continue home medication Lasix 40 twice daily #Hypertension continue home medication losartan 50 twice daily, metoprolol succinate 25 daily #Hyperlipidemia continue atorvastatin 20 daily #COPD, not on home oxygen continue inhaler treatments, Mucinex #GERD continue omeprazole DVT prophylaxis ALPS given anemia Code status full code Problem List: 1. Pneumonia 2. Dyspnea 3. COPD (chronic obstructive pulmonary disease) Pain Ratin Pain Location: chest pain Pain Goal: Pain 4 or less Pain Plan: tylenol prn Tomorrow's Labs & Rationales: cbc, bep for monitoring H&H.
[2018-01-21 07:21] VITALS: BP 132/64
--- NOTE | 2018-01-21 07:53 | PN- Pulmonary ---
Subjective HPI/Critical Care Issues: Patient feels improved no further hemoptysis. CT scan results reviewed. No findings suggestive of lung cancer. Objective Current Medications: Current Medications Sig/Heena Start time Last Medication Dose Route Stop Time Status Admin Acetaminophen 650 MG Q6P PRN 01/19 0845 AC 01/21 PO 0610 Acetaminophen 1,000 MG Q6P PRN 01/19 0845 AC IV Albuterol Sulfate 3 ML EVERY 4 HRS/AWAKE 01/19 1200 AC 01/20 INH 2000 Albuterol Sulfate 3 ML TID 01/19 1000 AC 01/19 INH 1613 Albuterol Sulfate 2 PUF Q4-6 PRN PRN 01/19 0845 AC INH Aspirin Buffered 81 MG DAILY 01/19 1000 AC 01/20 PO 0929 Atorvastatin Calcium 20 MG QPM 01/19 2200 AC 01/20 PO 2141 Budesonide/ 2 PUF BID 01/19 1000 AC 01/20 Formoterol Fumarate INH 2020 Ceftriaxone Sodium 1,000 MG DAILY 01/20 1000 AC 01/20 IV 0929 Cholecalciferol 1,000 IU DAILY 01/19 1000 AC 01/20 PO 0930 Diltiazem HCl 120 MG DAILY 01/19 1000 AC 01/20 PO 0929 Fluticasone 2 SPRAY DAILY 01/19 1000 AC 01/20 Propionate MARCO 0929 Furosemide 40 MG BID 01/19 1000 AC 01/20 PO 202 Guaifenesin 1,200 MG Q12 01/19 1000 AC 01/20 PO 2021 Losartan Potassium 50 MG BID 01/19 1000 AC 01/20 PO 2021 Magnesium Oxide 400 MG DAILY 01/19 1000 AC 01/20 PO 0929 Methylprednisolone 40 MG Q12 01/20 1000 DC 01/20 IV 01/20 2355 2021 Methylprednisolone 40 MG Q8 01/19 1400 DC 01/20 IV 0542 Metoprolol Succinate 25 MG DAILY 01/19 1000 AC 01/20 PO 0930 Omeprazole 40 MG DAILY AC 01/19 0839 AC 01/21 PO 0533 Ondansetron HCl 4 MG .STK-MED ONE 01/20 0834 DC IM 01/20 0835 Ondansetron HCl 4 MG Q6P PRN 01/19 0845 AC 01/20 IV 0835 Oxycodone/ 2 TAB Q6P PRN 01/19 0845 AC 01/21 Acetaminophen PO 0320 Patient Medication 1 ED ONE ONE 01/20 1515 DC Teaching ED 01/20 1516 Potassium Chloride 20 MEQ DAILY 01/19 1000 AC 01/20 PO 0929 Prednisone 60 MG ONCE ONE 01/21 1515 AC PO 01/21 1516 Rivaroxaban 15 MG DAILY 01/19 1000 AC 01/20 PO 0930 Vital Signs & I&O Last 24 Hrs of Vitals and I&O: Vital Signs Date Time Temp Pulse Resp B/P B/P Pulse O2 O2 Flow FiO2 Mean Ox Delivery Rate 01/21 0721 98.4 86 22 132/64 97 Nasal Cannula 01/20 2234 97 Nasal 2.0L Cannula 01/20 2200 98.4 97 24 158/80 97 Nasal 2.0L Cannula 01/20 2021 84 158/80 01/20 1628 97 Nasal 2.0L Cannula 01/20 1548 98.5 104 20 134/70 91 01/20 1544 97.6 80 22 136/52 96 01/20 0930 99 146/64 01/20 0929 99 146/64 01/20 0910 93 Nasal 2.0L Cannula 01/20 0836 97.8 99 18 146/64 94 Nasal 2.0L Cannula 01/20 0800 94 Nasal 2.0L Cannula Intake & Output 01/21 0800 01/21 0000 01/20 1600 Intake Total 240 360 643 Output Total 475 200 700 Balance -235 160 -57 Intake, IV 43 Intake, Oral 240 360 600 Number 1 1 Bowel Movements Output, Urine 475 200 700 Patient 167 lb Weight Weight Reported by Patient Measurement Method Oxygen saturation 2 L 97% exam for chest shows rare rhonchi there are no wheezes cardiac exam shows regular S1 and S2 without murmurs Impression/Plan Impression/Plan Impression/Plan: 87-year-old woman with history of COPD admitted with presumed pneumococcal pneumonia based on positive urinary pneumococcal antigen and CT findings. Respiratory status appears improved Recommendations: Follow-up sputum C&S and cytology. Taper FiO2 with improved saturations. Complete.. Course of antibiotics mobilize out of bed
[2018-01-21 08:28] LABS: ABSOLUTE BASOPHIL COUNT 0 /CUMM (0.0-0.2); ABSOLUTE EOSINOPHIL COUNT 0 /CUMM (0.0-0.7); ABSOLUTE GRANULOCYTE CT 11.8 /CUMM (1.4-6.5); ABSOLUTE LYMPH COUNT 0.5 /CUMM (1.2-3.4); ABSOLUTE MONOCYTE COUNT 0.4 /CUMM (0.10-0.60); BASOPHIL % 0 % (0.0-2.0); EOSINOPHIL % 0 % (0-5); GRANULOCYTE % 92.8 % (42.2-75.2); HEMATOCRIT 21.7 % (37-47); MEAN CORPUSCULAR HGB 25.2 PG (27.0-31.0); MEAN CORPUSCULAR HGB CONC 32.8 G/DL (33.0-37.0); MEAN CORPUSCULAR VOLUME 76.9 FL (81.0-99.0); MEAN PLATELET VOLUME 8.1 FL (7.4-10.4); PLATELET COUNT 393 /CUMM (130-400); RBC DISTRIBUTION WIDTH 18.6 % (11.5-14.5); RED BLOOD CELL CT 2.83 /CUMM (4.20-5.40); WHITE BLOOD CELL COUNT 12.7 /CUMM (4.8-10.8)
--- NOTE | 2018-01-21 09:54 | PN- Att Addend ---
Attending Addendum Attending Brief Note Feeling a little bit better still short of breath, still using oxygen. Vital signs are stable. No fever, no major changes on physical. CAT scan reviewed. If anything the infectious process may be looking a little better. No evidence of infarct or emboli, patient had a little hemoptysis yesterday, none today. To continue present treatment, also continue her wound care. Intake & Output 01/21 1600 01/21 0400 01/20 1600 01/20 0400 01/19 1600 01/19 0400 Intake Total 240 360 763 120 250 Output Total 913 594 0867 Balance 115 -190 -487 120 250 Intake, IV 43 250 Intake, Oral 240 360 720 120 Number 1 1 0 Bowel Movements Output, Urine 929 063 9420 Patient 167 lb 167 lb Weight Weight Reported by Patient Measurement Method Current Medications Sig/Heena Start time Last Medication Dose Route Stop Time Status Admin Acetaminophen 650 MG Q6P PRN 01/19 0845 AC 01/21 PO 0610 Acetaminophen 1,000 MG Q6P PRN 01/19 0845 AC IV Albuterol Sulfate 3 ML EVERY 4 HRS/AWAKE 01/19 1200 AC 01/21 INH 0835 Albuterol Sulfate 3 ML TID 01/19 1000 AC 01/19 INH 1613 Albuterol Sulfate 2 PUF Q4-6 PRN PRN 01/19 0845 AC INH Aspirin Buffered 81 MG DAILY 01/19 1000 AC 01/20 PO 0929 Atorvastatin Calcium 20 MG QPM 01/19 2200 AC 01/20 PO 2141 Budesonide/ 2 PUF BID 01/19 1000 AC 01/21 Formoterol Fumarate INH 0753 Ceftriaxone Sodium 1,000 MG DAILY 01/20 1000 AC 01/21 IV 0756 Cholecalciferol 1,000 IU DAILY 01/19 1000 AC 01/21 PO 0753 Diltiazem HCl 120 MG DAILY 01/19 1000 AC 01/21 PO 0752 Fluticasone 2 SPRAY DAILY 01/19 1000 AC 01/21 Propionate MARCO 0754 Furosemide 40 MG BID 01/19 1000 AC 01/21 PO 0752 Guaifenesin 1,200 MG Q12 01/19 1000 AC 01/21 PO 0751 Losartan Potassium 50 MG BID 01/19 1000 AC 01/21 PO 0752 Magnesium Oxide 400 MG DAILY 01/19 1000 AC 01/20 PO 0929 Methylprednisolone 40 MG Q12 01/20 1000 DC 01/20 IV 01/20 2355 202 Metoprolol Succinate 25 MG DAILY 01/19 1000 AC 01/21 PO 0752 Omeprazole 40 MG DAILY AC 01/19 0839 AC 01/21 PO 0533 Ondansetron HCl 4 MG Q6P PRN 01/19 0845 AC 01/20 IV 0835 Oxycodone/ 2 TAB Q6P PRN 01/19 0845 AC 01/21 Acetaminophen PO 0320 Patient Medication 1 ED ONE ONE 01/20 1515 DC Teaching ED 01/20 1516 Potassium Chloride 20 MEQ DAILY 01/19 1000 AC 01/21 PO 0752 Prednisone 60 MG ONCE ONE 01/21 1515 AC PO 01/21 1516 Rivaroxaban 15 MG DAILY 01/19 1000 AC 01/21 PO 0753 Laboratory Tests 01/21/18 0631: Anion Gap 13, Estimated GFR 47 L, BUN/Creatinine Ratio 32.7 H, CBC w Diff Pending, WBC Pending, RBC Pending, Hgb Pending, Hct Pending, MCV Pending, MCH Pending, MCHC Pending, RDW Pending, Plt Count Pending, MPV Pending 01/20/18 0614: Anion Gap 13, Estimated GFR > 60, BUN/Creatinine Ratio 25.0, CBC w Diff NO MAN DIFF REQ, RBC 3.07 L, MCV 77.1 L, MCH 24.8 L, MCHC 32.2 L, RDW 18.0 H, MPV 8.1, Gran % 90.4 H, Lymphocytes % 6.5 L, Monocytes % 3.1, Eosinophils % 0, Basophils % 0, Absolute Granulocytes 9.0 H, Absolute Lymphocytes 0.7 L, Absolute Monocytes 0.3, Absolute Eosinophils 0, Absolute Basophils 0 01/19/18 2337: Urine Color STRAW, Urine Clarity CLEAR, Urine pH 6.5, Ur Specific [place] 1.015, Urine Protein NEG, Urine Ketones NEG, Urine Nitrite NEG, Urine Bilirubin NEG, Urine Urobilinogen 0.2, Ur Leukocyte Esterase NEG, Ur Microscopic EXAM NOT REQUIRED, Urine Hemoglobin NEG, Urine Glucose NEG 01/19/18 1025: Urinalysis LIGHT H, Urine Color YEL, Urine Clarity CLEAR, Urine pH 6.5, Ur Specific [place] 1.020, Urine Protein NEG, Urine Ketones TRACE H, Urine Nitrite NEG, Urine Bilirubin NEG, Urine Urobilinogen 0.2, Ur Leukocyte Esterase NEG, Ur Microscopic SEDIMENT EXAMINED, Urine RBC 3-5, Urine WBC 3-5 H, Ur Epithelial Cells FEW, Urine Bacteria FEW H, Hyaline Casts RARE H, Urine Mucus FEW, Urine Hemoglobin TRACE-INTACT, Urine Glucose NEG 01/19/18 0830: D-Dimer High Sensitivty 264 H 01/19/18 0530: pH 7.48 H, pCO2 32 L, pO2 167 H, HCO3 23, ABG O2 Sat (Measured) 99.0, P-50 ( Temp Corrected) N, Carboxyhemoglobin 1.4 L, O2 Concentration % 6L, O2 Delivery Method NEB RX, Anion Gap 12, Estimated GFR > 60, BUN/Creatinine Ratio 24.3, Glucose 150 H, Calcium 9.0, Total Bilirubin 1.2, AST 18, ALT 23, Alkaline Phosphatase 72, Troponin I < 0.01, Aiy-X-Rldxkgdsxwd Pept 3150 H, Total Protein 6.0 L, Albumin 3.5, Globulin 2.5, Albumin/Globulin Ratio 1.4, CBC w Diff NO MAN DIFF REQ, RBC 3.29 L, MCV 77.1 L, MCH 25.2 L, MCHC 32.7 L, RDW 17.9 H, MPV 7.6, Gran % 80.9 H, Lymphocytes % 13.0 L, Monocytes % 5.9, Eosinophils % 0, Basophils % 0.2, Absolute Granulocytes 11.9 H, Absolute Lymphocytes 1.9, Absolute Monocytes 0.9 H, Absolute Eosinophils 0, Absolute Basophils 0, Phlebotomy Draw Site RIGHT RADIAL Microbiology 01/19 1250 NASOPHARYN: Influenza Virus A & B Rapid Smear - COMP 01/19 1025 URINE ROUT: Legionella Antigen - COMP 01/19 102 URINE ROUT: Streptococcus pneumoniae Antigen (M - COMP STREP PNEUMO BACTERIAL AG 01/19 0835 LOWER RESP: Respiratory Culture - CAN Cancelled: SPECIMEN NOT RECEIVED IN LABORATORY 01/19 08 LOWER RESP: Gram Stain - CAN Cancelled: SPECIMEN NOT RECEIVED IN LABORATORY 01/19 0630 BLOOD: Blood Culture - RES 01/19 535 BLOOD: Blood Culture - RES Microbiology 01/19 1250 NASOPHARYN: Influenza Virus A & B Rapid Smear - COMP 01/19 1025 URINE ROUT: Legionella Antigen - COMP 01/19 1025 URINE ROUT: Streptococcus pneumoniae Antigen (M - COMP STREP PNEUMO BACTERIAL AG 02/26 0835 LOWER RESP: Respiratory Culture - CAN Cancelled: SPECIMEN NOT RECEIVED IN LABORATORY 01/19 835 LOWER RESP: Gram Stain - CAN Cancelled: SPECIMEN NOT RECEIVED IN LABORATORY 01/19 630 BLOOD: Blood Culture - RES 01/19 535 BLOOD: Blood Culture - RES Vital Signs Date Time Temp Pulse Resp B/P B/P Pulse O2 O2 Flow FiO2 Mean Ox Delivery Rate 01/21 0835 94 Nasal 2.0L Cannula 01/21 0800 Nasal 2.0L Cannula 01/21 0752 86 132/64 01/21 0752 86 132/64 01/21 0721 98.4 86 22 132/64 97 Nasal Cannula 01/20 2234 97 Nasal 2.0L Cannula 01/20 2200 98.4 97 24 158/80 97 Nasal 2.0L Cannula 01/20 2021 84 158/80 01/20 1628 97 Nasal 2.0L Cannula 01/20 1548 98.5 104 20 134/70 91 01/20 1544 97.6 80 22 136/52 96
[2018-01-21 14:08] VITALS: BP 125/60
[2018-01-21 22:00] VITALS: BP 140/64
[2018-01-22 07:28] VITALS: BP 140/102
--- NOTE | 2018-01-22 07:29 | PN- Housestaff ---
Subjective Follow-up For: Strep pneumonia Subjective: Seen and examined Patient appears well and not in acute distress. Reports still had hemopysis but overall her shortness of breath and cough is improving. No overnight events. Review of Systems Constitutional: Reports: see HPI. EENTM: Reports: see HPI. Objective Last 24 Hrs of Vital Signs/I&O Vital Signs Date Time Temp Pulse Resp B/P B/P Pulse O2 O2 Flow FiO2 Mean Ox Delivery Rate 01/22 1327 98.1 85 20 118/70 91 Nasal 1.0L Cannula 01/22 0908 90 140/102 01/22 0907 90 140/102 01/22 0835 95 Nasal 2.0L Cannula 01/22 0800 94 Nasal 1.0L Cannula 01/22 0728 98.2 90 18 140/102 96 Nasal 2.0L Cannula 01/22 0000 Nasal 2.0L Cannula 01/21 2200 98.0 100 20 140/64 93 Nasal 2.0L Cannula 01/21 2045 100 140/64 01/21 1628 95 Nasal 2.0L Cannula 01/21 1600 96 Nasal 2.0L Cannula Intake & Output 01/22 1600 01/22 0800 01/22 0000 Intake Total 240 610 Output Total 300 300 Balance -60 310 Intake, IV 10 Intake, Oral 240 600 Output, Urine 300 300 Physical Exam General Appearance: Alert, Oriented X3, Cooperative, Mild Distress Skin: No Rashes, No Breakdown HEENT: Atraumatic, PERRLA Neck: Supple Cardiovascular: Normal S1, Normal S2 Lungs: Clear to Auscultation, Normal Air Movement Abdomen: Normal Bowel Sounds, Soft, No Tenderness Neurological: Normal Speech, Strength at 5/5 X4 Ext, Normal Tone, Sensation Intact Extremities: No Clubbing, No Cyanosis Vascular: Normal Pulses Current Medications: Current Medications Sig/Heena Start time Last Medication Dose Route Stop Time Status Admin Acetaminophen 650 MG Q6P PRN 01/19 0845 AC 01/21 PO 0610 Acetaminophen 1,000 MG Q6P PRN 01/19 0845 AC IV Albuterol Sulfate 3 ML EVERY 4 HRS/AWAKE 01/19 1200 AC 01/22 INH 1157 Albuterol Sulfate 3 ML TID 01/19 1000 DC 01/19 INH 1613 Albuterol Sulfate 2 PUF Q4-6 PRN PRN 01/19 0845 AC INH Aspirin Buffered 81 MG DAILY 01/19 1000 AC 01/22 PO 0907 Atorvastatin Calcium 20 MG QPM 01/19 2200 AC 01/21 PO 2045 Budesonide/ 2 PUF BID 01/19 1000 AC 01/22 Formoterol Fumarate INH 0922 Ceftriaxone Sodium 1,000 MG DAILY 01/20 1000 AC 01/22 IV 0909 Cholecalciferol 1,000 IU DAILY 01/19 1000 AC 01/22 PO 0907 Diltiazem HCl 120 MG DAILY 01/19 1000 AC 01/22 PO 0908 Fluticasone 2 SPRAY DAILY 01/19 1000 AC 01/22 Propionate MARCO 0908 Furosemide 40 MG BID 01/19 1000 AC 01/22 PO 0909 Guaifenesin 1,200 MG Q12 01/19 1000 AC 01/22 PO 0908 Losartan Potassium 50 MG BID 01/19 1000 AC 01/22 PO 0908 Magnesium Oxide 400 MG DAILY 01/19 1000 AC 01/22 PO 0908 Melatonin 5 MG AT BEDTIME 01/21 2200 AC 01/21 PO 2045 Metoprolol Succinate 25 MG DAILY 01/19 1000 AC 01/22 PO 0907 Omeprazole 40 MG DAILY AC 01/19 0839 AC 01/22 PO 0336 Ondansetron HCl 4 MG Q6P PRN 01/19 0845 AC 01/20 IV 0835 Oxycodone/ 2 TAB Q6P PRN 01/19 0845 AC 01/22 Acetaminophen PO 1347 Potassium Chloride 20 MEQ DAILY 01/19 1000 AC 01/22 PO 0907 Prednisone 30 MG DAILY 01/27 1000 AC PO 01/28 1001 Prednisone 40 MG DAILY 01/25 1000 AC PO 01/26 1001 Prednisone 50 MG DAILY 01/23 1000 AC PO 01/24 1001 Prednisone 60 MG DAILY 01/22 1000 CAN PO 01/29 0959 Prednisone 60 MG DAILY 01/22 1000 DC 01/22 PO 01/22 1001 0908 Prednisone 60 MG ONCE ONE 01/21 1530 CAN PO 01/21 1531 Prednisone 60 MG ONCE ONE 01/21 1515 DC 01/21 PO 01/21 1516 1630 Rivaroxaban 15 MG DAILY 01/19 1000 AC 01/22 PO 0910 Last 24 Hrs of Lab/Jem Results Last 24 Hrs of Labs/Mics: Laboratory Tests 01/22/1814: CBC w Diff MAN DIFF ORDERED, RBC 3.15 L, MCV 76.7 L, MCH 24.7 L, MCHC 32.2 L , RDW 18.0 H, MPV 8.1, Gran % 91.7 H, Lymphocytes % 4.7 L, Monocytes % 3.4, Eosinophils % 0, Basophils % 0.2, Absolute Granulocytes 14.5 H, Absolute Lymphocytes 0.8 L, Absolute Monocytes 0.5, Absolute Eosinophils 0, Absolute Basophils 0, Platelet Estimate VERIFIED BY SMEAR, Polychromasia 1+, Hypochromic- Microcytic 1+, Poikilocytosis 1+, Anisocytosis 1+, Microcytic Cells 1+, Ovalocytes 1+, Navid Cells 1+ Assessment/Plan Assessment: 87-year-old female with PMH significant for A.fib on anticoagulation, chronic diastolic CHF on Lasix, HTN, HLD, COPD not on home oxygen, NSCLC and carcinoid tumor, with B/L lobectomies and s/p radiation for a lingular nodule, and radiation pneumonitis, multinodular thyroid gland, GERD, osteoarthritis, left lower extremity open wound presented to the hospital for evaluation of acute shortness of breath. [facility] for Strep pneumonia, transferred to general medicine floor today. Problem list 1. Community accquired Step pneumonia 2. Atrial fibrillation 3. Chronic diastolic heart failure 4. Hypertension 5. Hyperlipidemia 6. COPD 7. GERD 8. Chronic left lower extremity wound Community acquired Strep pneumonia Urine strep test positive and continued on IV ceftriaxone day 4. Improved hemoptysis with overall improvement in cough/SOB. CT chest did show diffuse heterogenous attenuation with superadded infectious process in the left lower lobe region. Continue oral steroid taper. Try to taper oxygen down. Her White count increased despite on antibiotics, she may need additional macrolide for atypicals. If continues to trend up, we will add azithromycin given COPD history. Ruled out PE She was ruled out for PE with VQ scan given elevated D-dimer with history of cancer. Chronic left lower extremity wound She has wound that is healing well with granulation tissue and she was following up at the wound care center and undergoing regular dressing changes with home health services. Wound care consult palced with Dr. Mckeon. Daily dressings Acute drop in H&H Improved to 7.8/24. Yesterday H&H could be artifact. We will continue to monitor at this point. She remains desaturating with ambulation. A unit of transfusion can improve her breathing and potentially can worsen her heart failure. So consider cardio consult for benefits vs risks of transfusion. #Atrial fibrillation continue aspirin, Cardizem 120 mg daily, and xaralto 15 daily #Chronic diastolic heart failure continue home medication Lasix 40 twice daily #Hypertension continue home medication losartan 50 twice daily, metoprolol succinate 25 daily #Hyperlipidemia continue atorvastatin 20 daily #COPD, not on home oxygen continue inhaler treatments, Mucinex #GERD continue omeprazole DVT prophylaxis On xarelto Code status Full code Problem List: 1. Pneumonia 2. Bronchitis 3. COPD (chronic obstructive pulmonary disease) Pain Ratin Pain Location: leg pain Pain Goal: Pain 4 or less Pain Plan: tylenol, percocet Tomorrow's Labs & Rationales: cbc to monitor H&H, white count
--- NOTE | 2018-01-22 08:58 | PN- Pulmonary ---
Subjective HPI/Critical Care Issues: Patient continues to feel improved. Renal function appears to have deteriorated Objective Current Medications: Current Medications Sig/Heena Start time Last Medication Dose Route Stop Time Status Admin Acetaminophen 650 MG Q6P PRN 01/19 0845 AC 01/21 PO 0610 Acetaminophen 1,000 MG Q6P PRN 01/19 0845 AC IV Albuterol Sulfate 3 ML EVERY 4 HRS/AWAKE 01/19 1200 AC 01/22 INH 0812 Albuterol Sulfate 3 ML TID 01/19 1000 DC 01/19 INH 1613 Albuterol Sulfate 2 PUF Q4-6 PRN PRN 01/19 0845 AC INH Aspirin Buffered 81 MG DAILY 01/19 1000 AC 01/21 PO 1140 Atorvastatin Calcium 20 MG QPM 01/19 2200 AC 01/21 PO 2045 Budesonide/ 2 PUF BID 01/19 1000 AC 01/21 Formoterol Fumarate INH 2045 Ceftriaxone Sodium 1,000 MG DAILY 01/20 1000 AC 01/21 IV 0756 Cholecalciferol 1,000 IU DAILY 01/19 1000 AC 01/21 PO 0753 Diltiazem HCl 120 MG DAILY 01/19 1000 AC 01/21 PO 0752 Fluticasone 2 SPRAY DAILY 01/19 1000 AC 01/21 Propionate MARCO 0754 Furosemide 40 MG BID 01/19 1000 AC 01/21 PO 2045 Guaifenesin 1,200 MG Q12 01/19 1000 AC 01/21 PO 2044 Losartan Potassium 50 MG BID 01/19 1000 AC 01/21 PO 2045 Magnesium Oxide 400 MG DAILY 01/19 1000 AC 01/21 PO 1140 Melatonin 5 MG AT BEDTIME 01/21 2200 AC 01/21 PO 2045 Metoprolol Succinate 25 MG DAILY 01/19 1000 AC 01/21 PO 0752 Omeprazole 40 MG DAILY AC 01/19 0839 AC 01/22 PO 0336 Ondansetron HCl 4 MG Q6P PRN 01/19 0845 AC 01/20 IV 0835 Oxycodone/ 2 TAB Q6P PRN 01/19 0845 AC 01/22 Acetaminophen PO 0338 Patient Medication 1 ED ONE ONE 01/21 1145 DC Teaching ED 01/21 1146 Potassium Chloride 20 MEQ DAILY 01/19 1000 AC 01/21 PO 0752 Prednisone 30 MG DAILY 01/27 1000 AC PO 01/28 1001 Prednisone 40 MG DAILY 01/25 1000 AC PO 01/26 1001 Prednisone 50 MG DAILY 01/23 1000 AC PO 01/24 1001 Prednisone 60 MG DAILY 01/22 1000 CAN PO 01/29 0959 Prednisone 60 MG DAILY 01/22 1000 AC PO 01/22 1001 Prednisone 60 MG ONCE ONE 01/21 1530 CAN PO 01/21 1531 Prednisone 60 MG ONCE ONE 01/21 1515 DC 01/21 PO 01/21 1516 1630 Rivaroxaban 15 MG DAILY 01/19 1000 AC 01/21 PO 0753 Vital Signs & I&O Last 24 Hrs of Vitals and I&O: Vital Signs Date Time Temp Pulse Resp B/P B/P Pulse O2 O2 Flow FiO2 Mean Ox Delivery Rate 01/22 0835 95 Nasal 2.0L Cannula 01/22 0728 98.2 90 18 140/102 96 Nasal 2.0L Cannula 01/22 0000 Nasal 2.0L Cannula 01/21 2200 98.0 100 20 140/64 93 Nasal 2.0L Cannula 01/21 2045 100 140/64 01/21 1628 95 Nasal 2.0L Cannula 01/21 1600 96 Nasal 2.0L Cannula 01/21 1408 98.1 92 18 125/60 96 Nasal 2.0L Cannula Intake & Output 01/22 1600 01/22 0800 01/22 0000 Intake Total 240 610 Output Total 300 300 Balance -60 310 Intake, IV 10 Intake, Oral 240 600 Output, Urine 300 300 Since saturation 2 L 95-96% exam for chest shows diminished breath sounds are no wheezes cardiac exam shows a regular S1 and S2 without murmurs Impression/Plan Impression/Plan Impression/Plan: 87-year-old who has presumed pneumococcal pneumonia and has improving respiratory status. BUN/creatinine elevated possibly due to volume depletion versus complications of antibiotics. Recommendations: Follow-up sputum C&S and cytology. Taper FiO2 with improved saturations. Complete.. Course of antibiotics mobilize out of bed further evaluation of worsening renal function by primary care team
[2018-01-22 10:10] LABS: ABSOLUTE BASOPHIL COUNT 0 /CUMM (0.0-0.2); ABSOLUTE EOSINOPHIL COUNT 0 /CUMM (0.0-0.7); ABSOLUTE GRANULOCYTE CT 14.5 /CUMM (1.4-6.5); ABSOLUTE LYMPH COUNT 0.8 /CUMM (1.2-3.4); ABSOLUTE MONOCYTE COUNT 0.5 /CUMM (0.10-0.60); BASOPHIL % 0.2 % (0.0-2.0); EOSINOPHIL % 0 % (0-5); GRANULOCYTE % 91.7 % (42.2-75.2); HEMATOCRIT 24.2 % (37-47); MEAN CORPUSCULAR HGB 24.7 PG (27.0-31.0); MEAN CORPUSCULAR HGB CONC 32.2 G/DL (33.0-37.0); MEAN CORPUSCULAR VOLUME 76.7 FL (81.0-99.0); MEAN PLATELET VOLUME 8.1 FL (7.4-10.4); PLATELET COUNT 458 /CUMM (130-400); RED BLOOD CELL CT 3.15 /CUMM (4.20-5.40); WHITE BLOOD CELL COUNT 15.9 /CUMM (4.8-10.8)
--- NOTE | 2018-01-22 11:21 | PN- Att Addend ---
Attending Addendum Attending Brief Note Patient in bed stated earlier was a little more short of breath she was doing a little bit more activity at that time. At the present time she feels better. Had some makeup on and fixed her hair so overall she looking better husbandl at the bedside. Vital signs are stable no fever or major changes on physical still taking care of her wound on her leg. Her H&H had dropped yesterday, slightly better today but still little. White count is elevated. Will check with cardiology to see if the patient would benefit from a transfusion or keep observation on her H&H. Continue treatment of her pulmonary condition. Intake & Output 01/22 1600 01/22 0400 01/21 1600 01/21 0400 01/20 1600 01/20 0400 Intake Total 312 942 6384 360 763 120 Output Total 300 300 736 003 2270 Balance -60 310 1335 -190 -487 120 Intake, IV 10 20 43 Intake, Oral 606 098 1102 360 720 120 Number 1 1 0 Bowel Movements Output, Urine 300 300 670 133 5151 Patient 167 lb Weight Weight Reported by Patient Measurement Method Current Medications Sig/Heena Start time Last Medication Dose Route Stop Time Status Admin Acetaminophen 650 MG Q6P PRN 01/19 0845 AC 01/21 PO 0610 Acetaminophen 1,000 MG Q6P PRN 01/19 0845 AC IV Albuterol Sulfate 3 ML EVERY 4 HRS/AWAKE 01/19 1200 AC 01/22 INH 0812 Albuterol Sulfate 3 ML TID 01/19 1000 DC 01/19 INH 1613 Albuterol Sulfate 2 PUF Q4-6 PRN PRN 01/19 0845 AC INH Aspirin Buffered 81 MG DAILY 01/19 1000 AC 01/22 PO 0907 Atorvastatin Calcium 20 MG QPM 01/19 2200 AC 01/21 PO 2045 Budesonide/ 2 PUF BID 01/19 1000 AC 01/22 Formoterol Fumarate INH 09 Ceftriaxone Sodium 1,000 MG DAILY 01/20 1000 AC 01/22 IV 0909 Cholecalciferol 1,000 IU DAILY 01/19 1000 AC 01/22 PO 0907 Diltiazem HCl 120 MG DAILY 01/19 1000 AC 01/22 PO 0908 Fluticasone 2 SPRAY DAILY 01/19 1000 AC 01/22 Propionate MARCO 0908 Furosemide 40 MG BID 01/19 1000 AC 01/22 PO 0909 Guaifenesin 1,200 MG Q12 01/19 1000 AC 01/22 PO 0908 Losartan Potassium 50 MG BID 01/19 1000 AC 01/22 PO 0908 Magnesium Oxide 400 MG DAILY 01/19 1000 AC 01/22 PO 0908 Melatonin 5 MG AT BEDTIME 01/21 2200 AC 01/21 PO 2045 Metoprolol Succinate 25 MG DAILY 01/19 1000 AC 01/22 PO 0907 Omeprazole 40 MG DAILY AC 01/19 0839 AC 01/22 PO 0336 Ondansetron HCl 4 MG Q6P PRN 01/19 0845 AC 01/20 IV 0835 Oxycodone/ 2 TAB Q6P PRN 01/19 0845 AC 01/22 Acetaminophen PO 0338 Patient Medication 1 ED ONE ONE 01/21 1145 DC Teaching ED 01/21 1146 Potassium Chloride 20 MEQ DAILY 01/19 1000 AC 01/22 PO 0907 Prednisone 30 MG DAILY 01/27 1000 AC PO 01/28 1001 Prednisone 40 MG DAILY 01/25 1000 AC PO 01/26 1001 Prednisone 50 MG DAILY 01/23 1000 AC PO 01/24 1001 Prednisone 60 MG DAILY 01/22 1000 CAN PO 01/29 0959 Prednisone 60 MG DAILY 01/22 1000 DC 01/22 PO 01/22 1001 0908 Prednisone 60 MG ONCE ONE 01/21 1530 CAN PO 01/21 1531 Prednisone 60 MG ONCE ONE 01/21 1515 DC 01/21 PO 01/21 1516 1630 Rivaroxaban 15 MG DAILY 01/19 1000 AC 01/22 PO 0910 Laboratory Tests 01/22/18 0914: CBC w Diff MAN DIFF ORDERED, RBC 3.15 L, MCV 76.7 L, MCH 24.7 L, MCHC 32.2 L , RDW 18.0 H, MPV 8.1, Gran % 91.7 H, Lymphocytes % 4.7 L, Monocytes % 3.4, Eosinophils % 0, Basophils % 0.2, Absolute Granulocytes 14.5 H, Segmented Neutrophils Pending, Absolute Lymphocytes 0.8 L, Absolute Monocytes 0.5, Absolute Eosinophils 0, Absolute Basophils 0 01/21/18 0631: Anion Gap 13, Estimated GFR 47 L, BUN/Creatinine Ratio 32.7 H, CBC w Diff NO MAN DIFF REQ, RBC 2.83 L, MCV 76.9 L, MCH 25.2 L, MCHC 32.8 L, RDW 18.6 H, MPV 8.1, Gran % 92.8 H, Lymphocytes % 4.3 L, Monocytes % 2.9, Eosinophils % 0, Basophils % 0, Absolute Granulocytes 11.8 H, Absolute Lymphocytes 0.5 L, Absolute Monocytes 0.4, Absolute Eosinophils 0, Absolute Basophils 0 01/20/18 0614: Anion Gap 13, Estimated GFR > 60, BUN/Creatinine Ratio 25.0, CBC w Diff NO MAN DIFF REQ, RBC 3.07 L, MCV 77.1 L, MCH 24.8 L, MCHC 32.2 L, RDW 18.0 H, MPV 8.1, Gran % 90.4 H, Lymphocytes % 6.5 L, Monocytes % 3.1, Eosinophils % 0, Basophils % 0, Absolute Granulocytes 9.0 H, Absolute Lymphocytes 0.7 L, Absolute Monocytes 0.3, Absolute Eosinophils 0, Absolute Basophils 0 01/19/18 9807: Urine Color STRAW, Urine Clarity CLEAR, Urine pH 6.5, Ur Specific [place] 1.015, Urine Protein NEG, Urine Ketones NEG, Urine Nitrite NEG, Urine Bilirubin NEG, Urine Urobilinogen 0.2, Ur Leukocyte Esterase NEG, Ur Microscopic EXAM NOT REQUIRED, Urine Hemoglobin NEG, Urine Glucose NEG Microbiology 01/19 1250 NASOPHARYN: Influenza Virus A & B Rapid Smear - COMP Microbiology 01/19 125 NASOPHARYN: Influenza Virus A & B Rapid Smear - COMP Vital Signs Date Time Temp Pulse Resp B/P B/P Pulse O2 O2 Flow FiO2 Mean Ox Delivery Rate 01/22 0908 90 140/102 01/22 0907 90 140/102 01/22 0835 95 Nasal 2.0L Cannula 01/22 0800 94 Nasal 1.0L Cannula 01/22 0728 98.2 90 18 140/102 96 Nasal 2.0L Cannula 01/22 0000 Nasal 2.0L Cannula 01/21 2200 98.0 100 20 140/64 93 Nasal 2.0L Cannula 01/21 2045 100 140/64 01/21 1628 95 Nasal 2.0L Cannula 01/21 1600 96 Nasal 2.0L Cannula 01/21 1408 98.1 92 18 125/60 96 Nasal 2.0L Cannula
[2018-01-22 13:27] VITALS: BP 118/70
--- NOTE | 2018-01-22 14:31 | Patient Discharge Instructions ---
Discharge Instructions General Discharge Information You were seen/treated for: Strep pneumonia Special Instructions: Please follow up with your PCP in a week Please follow up with in a week Diet Recommended Diet: Heart Healthy Activity Full Activity/No Limits: No Activity Self Limited: Yes Acute Coronary Syndrome Inclusion Criteria At DC or during hospital stay patient has or had the following: ACS DIAGNOSIS No Discharge Core Measures Meds if any: Prescribed or Continued at Discharge Meds if any: NOT Prescribed or Continued at Discharge Congestive Heart Failure Inclusion Criteria At DC or during hospital stay patient has or had the following: CHF DIAGNOSIS No Discharge Core Measures Meds if any: Prescribed or Continued at Discharge Meds if any: NOT Prescribed or Continued at Discharge Cerebrovascular accident Inclusion Criteria At DC or during hospital stay patient has or had the following: CVA/TIA Diagnosis No Discharge Core Measures Meds if any: Prescribed or Continued at Discharge Meds if any: NOT Prescribed or Continued at Discharge Venous thromboembolism Inclusion Criteria VTE Diagnosis No VTE Type NONE VTE Confirmed by (Test) NONE Discharge Core Measures - Per Current guidelines, there needs to be overlap - treatment for the first 5 days of Warfarin therapy. - If discharged on Warfarin prior to 5 days of - overlap therapy, the patient will need to be - assessed for post discharge needs including - *Post discharge parental anticoagulation - *Warfarin and/or parental anticoagulation education - *Follow up date to check INR post discharge At least 5 days overlap therapy as Inpatient No Meds if any: Prescribed or Continued at Discharge Note: Overlap Therapy is Warfarin and Anticoagulant Meds if any: NOT Prescribed or Continued at Discharge
--- NOTE | 2018-01-22 17:12 | Cons- Cardiology ---
General Information and HPI Consulting Request Date of Consult: 01/22/18 Requested By: Antonio Lopez MD Reason for Consult: Anemia and need for anticoagulation. Source of Information: patient, old records Exam Limitations: poor historian History of Present Illness: Mrs. 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 s/p right and left lower lobectomies (2006, 2007) with subsequent recurrence and radiation therapy (2013) complicated by radiation pneumonitis, carotid artery disease, mild , mild LVH, mild AR, mild-moderate MS, mild MR, moderate TR, moderate pulmonary HTN, normal systolic function by echo (08/05/2017), and mild CAD by remote cardiac cath (February 2000) performed for c/o of CP w/ positive imaging stress test, previous HFpEF, and recently diagnosed AF for which she was placed on the NOAC, Xarelto (rivaroxaban), s/p LLE trauma with hematoma ~3-1/2 weeks prior to admission, s/p hematoma evacuation on 12/22/2017, with postoperative course complicated by respiratory distress, treated with antimicrobial therapy ( Azithromycin) and steroids (prednisone) who was discharged on a steroid taper and who was admitted on 01/07/2018 after an outpatient CBC revealed a leukocytosis of 22,000. She was seen by ID who noted her to be afebrile and who felt as though her LLE wound had improved and was without evidence of residual infection and who suspected that her leukocytosis was on the basis of steroid therapy. They also felt that the subcutaneous gas noted on her recent x-ray was secondary to the open wound and felt she could be observed off antimicrobial therapy. She also had a drop in her H/H on 01/21/2018, that fortunately was better on today's blood work. Allergies/Medications Allergies: Coded Allergies: adhesive tape (RASH ON SKIN THAT IT TOUCHES 10/22/17) iodine (DAVIS SKIN WHERE APPLIED 10/22/17) povidone-iodine (DAVIS SKIN WHERE IT IS APPLIED 10/22/17) shellfish derived (HIVES ALL OVER 10/22/17) propoxyphene (GI UPSET 10/22/17) Home Med List: Albuterol Sulfate 2.5 MG/3 ML (0.083 %) VIAL.NEB 1 Vial INH/JULIO TID COPD ( Reported) Albuterol Sulfate (Ventolin Hfa) 90 MCG HFA.AER.AD 2 PUF INH Q4-6 PRN PRN SHORTNESS OF BREATH Aspirin (Ecotrin*) 81 MG TABLET.DR 1 TAB PO DAILY HEART (Reported) Atorvastatin Calcium (Lipitor) 20 MG TABLET 1 TAB PO QPM CHOLESTEROL ( Reported) Budesonide/Formoterol Fumarate (Symbicort 160-4.5 Mcg Inhaler) 160 MCG-4.5 MCG/ ACTUATION HFA.AER.AD 2 PUF INH BID COPD (Reported) Cholecalciferol (Vitamin D3) (Vitamin D3) 1,000 UNIT CAPSULE 1 CAP PO DAILY HEALTH SUPPLEMENT (Reported) Diltiazem HCl (Diltiazem 24HR Cd) 120 MG CAP.ER.24H 1 CAP PO DAILY HEART/BP ( Reported) Esomeprazole Magnesium (Nexium) 20 MG CAPSULE.DR 1 CAP PO DAILY ACID REFLUX ( Reported) Fluticasone Propionate 50 MCG/ACTUATION SPRAY.SUSP 2 SPRAY NASB DAILY ALLERGIES (Reported) Furosemide 40 MG TABLET 1 TAB PO BID DIURETIC (Reported) Guaifenesin (Mucinex) 1,200 MG TAB.ER.12H 1 TAB PO BID ALLERGIES (Reported) Losartan Potassium 100 MG TABLET 0.5 TAB PO BID BP (Reported) Magnesium Oxide 400 MG TABLET 1 TAB PO DAILY SUPPLEMENT (Reported) Metoprolol Succinate 25 MG TAB 1 TAB PO DAILY BP (Reported) [place]-3 Acid Ethyl Esters (Lovaza) 1 GRAM CAPSULE 1 CAP PO BID CHOLESTEROL/ TRIGLYCERIDES (Reported) Oxycodone HCl/Acetaminophen (Oxycodone-Acetaminophen 10-325) 10 MG-325 MG TABLET 1 TAB PO Q6H PRN PAIN (Reported) Potassium Chloride 20 MEQ TAB.ER.PRT 1 TAB PO DAILY SUPPLEMENT (Reported) Rivaroxaban (Xarelto) 15 MG TABLET 1 TAB PO DAILY afib . Review of Systems Review of Systems: A 14 point system review was obtained and was noncontributory, other than as above. 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 spouse Services at Home: None Primary Language: Macedonian Smoking Status: Never Smoked ETOH Use: denies use Illicit Drug Use: denies illicit drug use Living Will? yes Functional Ability ADLs Independent: dressing, eating, toileting, bathing. Ambulation: independent IADLs Independent: shopping, housework, finances, food prep, telephone, transportation , medication admin. Exam & Diagnostic Data Vital Signs and I&O Vital Signs Date Time Temp Pulse Resp B/P B/P Pulse O2 O2 Flow FiO2 Mean Ox Delivery Rate 01/22 1646 94 Nasal 1.0L Cannula 01/22 1327 98.1 85 20 118/70 91 Nasal 1.0L Cannula 01/22 0908 90 140/102 01/22 0907 90 140/102 01/22 0835 95 Nasal 2.0L Cannula 01/22 0800 94 Nasal 1.0L Cannula 01/22 0728 98.2 90 18 140/102 96 Nasal 2.0L Cannula 01/22 0000 Nasal 2.0L Cannula 01/21 2200 98.0 100 20 140/64 93 Nasal 2.0L Cannula 01/21 2045 100 140/64 Intake & Output 01/22 1600 01/22 0800 01/22 0000 01/21 1600 01/21 0800 01/21 0000 Intake Total 720 724 654 7727 240 360 Output Total 300 300 475 200 Balance 720 -60 310 1220 -235 160 Intake, IV 10 20 Intake, Oral 720 719 522 7630 240 360 Number 0 1 Bowel Movements Output, Urine 300 300 475 200 Patient 167 lb Weight Weight Reported by Patient Measurement Method Physical Exam: Well-developed, overweight elderly female in no acute distress with nasal oxygen in place. Vital signs: See above. HEENT: Normocephalic, atraumatic, EOMI, slightly dry mucous membranes. Neck: No JVD, no bruits. Lungs: Mild bibasilar crackles. Heart: S1, S2 with grade 1-2/6 systolic murmur. Abdomen: Soft, nontender, positive bowel sounds. Extremities: 1+ edema with left leg bandaged. Labs/Jem Results: Laboratory Tests 01/22 01/21 0914 0631 Chemistry Sodium (137 - 145 mmol/L) 139 Potassium (3.5 - 5.1 mmol/L) 4.8 Chloride (98 - 107 mmol/L) 100 Carbon Dioxide (22 - 30 mmol/L) 26 Anion Gap (5 - 16) 13 BUN (7 - 17 mg/dL) 36 H Creatinine (0.5 - 1.0 mg/dL) 1.1 H Estimated GFR (>60 ml/min) 47 L BUN/Creatinine Ratio (7 - 25 %) 32.7 H Hematology CBC w Diff MAN DIFF ORDERED NO MAN DIFF REQ WBC (4.8 - 10.8 /CUMM) 15.9 H 12.7 H RBC (4.20 - 5.40 /CUMM) 3.15 L 2.83 L Hgb (12.0 - 16.0 G/DL) 7.8 L 7.1 *L Hct (37 - 47 %) 24.2 L 21.7 L MCV (81.0 - 99.0 FL) 76.7 L 76.9 L MCH (27.0 - 31.0 PG) 24.7 L 25.2 L MCHC (33.0 - 37.0 G/DL) 32.2 L 32.8 L RDW (11.5 - 14.5 %) 18.0 H 18.6 H Plt Count (130 - 400 /CUMM) 458 H 393 MPV (7.4 - 10.4 FL) 8.1 8.1 Gran % (42.2 - 75.2 %) 91.7 H 92.8 H Lymphocytes % (20.5 - 51.1 %) 4.7 L 4.3 L Monocytes % (1.7 - 9.3 %) 3.4 2.9 Eosinophils % (0 - 5 %) 0 0 Basophils % (0.0 - 2.0 %) 0.2 0 Absolute Granulocytes (1.4 - 6.5 /CUMM) 14.5 H 11.8 H Absolute Lymphocytes (1.2 - 3.4 /CUMM) 0.8 L 0.5 L Absolute Monocytes (0.10 - 0.60 /CUMM) 0.5 0.4 Absolute Eosinophils (0.0 - 0.7 /CUMM) 0 0 Absolute Basophils (0.0 - 0.2 /CUMM) 0 0 Platelet Estimate (ADEQUATE) VERIFIED BY SMEAR Polychromasia 1+ Hypochromic-Microcytic 1+ Poikilocytosis 1+ Anisocytosis 1+ Microcytic Cells 1+ Ovalocytes 1+ Navid Cells 1+ Diagnostic Data EKG Results 01/19/2018: AF normal mean ventricular response, VPC, probable old IMI, abnormal R-wave progression, consider ASMI versus lead placement. Minor changes since previous tracing. Minor changes since previous tracing. CXR Results 01/19/2018: Small bilateral pleural effusions with airspace opacity which could represent atelectasis or pneumonia. Diffuse bronchial wall thickening may be associated with a small airways process or fluid overload. Other Results chest CT 01/20/2018: 1. Diffuse heterogeneous attenuation of the lungs, with a mixture of ground- glass and interstitial opacities, (crazy paving pattern), overall improved as compared to previous. Findings are nonspecific, with a broad differential, including infectious or bacterial viral pneumonia, pulmonary hemorrhage syndrome , alveolar proteinosis. 2. Component of patchy airspace opacities, as well as peribronchial opacity/ thickening in the left perihilar region extending to the left lower lung zones. This could reflect a component of acute infectious process superimposed on chronic changes. Follow-up imaging is recommended. 3. Cardiomegaly. 4. Small right greater than left pleural effusions. VQ scan 01/19/2018: 1. Low probability of pulmonary embolism. Increasing ventilation and perfusion abnormalities posteromedially in the right lower lobe are well matched and probably due to increasing right pleural effusion, possibly superimposed on atelectasis or pneumonitis. Nonsegmental perfusion abnormalities in the left lower lobe are unchanged from the prior study and likely related to pleural effusion and/or atelectasis or pneumonitis. LE Doppler ultrasound 01/19/2018: No evidence of deep venous thrombosis involving the lower extremities. Pulsatile venous waveforms in both lower extremities, commonly seen in the setting of right heart failure/elevated right heart pressures. Assessment/Plan Assessment/Plan Today, she states that she is feeling improved overall, but remains short of breath and on nasal oxygen. She denies any chest discomfort, palpitations, dry cough, etc. According to input/output she is approximately 2 L positive and is being maintained on her outpatient diuretic regimen of furosemide 40 mg twice daily. Would repeat CXR in a.m. and consider IV diuresis if evidence of HFpEF. Would also consider repeat echocardiogram to reassess her left ventricular function with her now in atrial fibrillation. Not clear why she dropped her H/H, but hemoglobin today improved with her on a NOAC. Continue to monitor closely. Given history of mild CAD would aim to maintain hemoglobin at or above 8.0 g/dl. Continue to check all stools for occult blood. DVT prophylaxis being addressed by the N0AC. Further recommendations to follow. Thank you. Consult Acknowledgment - Thank you for your consult request.
[2018-01-22 21:34] VITALS: BP 150/65
--- NOTE | 2018-01-23 07:31 | PN- Housestaff ---
Subjective Follow-up For: Strep pneumonia Diastolic heart failure Subjective: Seen and examined Feels much improved. Able to walk yesterday however desaturated. seems more active and in good spirits. Review of Systems Constitutional: Reports: see HPI. Comments: ROS negative except the above Objective Last 24 Hrs of Vital Signs/I&O Vital Signs Date Time Temp Pulse Resp B/P B/P Pulse O2 O2 Flow FiO2 Mean Ox Delivery Rate 01/23 0232 96 Nasal 1.0L Cannula 01/23 0000 Nasal 1.0L Cannula 01/22 2134 97.9 88 18 150/65 95 Nasal 1.0L Cannula 01/22 2104 93 150/65 01/22 1646 94 Nasal 1.0L Cannula 01/22 1600 94 Nasal 1.0L Cannula 01/22 1327 98.1 85 20 118/70 91 Nasal 1.0L Cannula 01/22 0908 90 140/102 01/22 0907 90 140/102 01/22 0835 95 Nasal 2.0L Cannula 01/22 0800 94 Nasal 1.0L Cannula Intake & Output 01/23 0800 01/23 0000 01/22 1600 Intake Total 480 720 Output Total 1050 300 Balance -1050 180 720 Intake, Oral 480 720 Number 0 Bowel Movements Output, Urine 1050 300 Patient 79.832 kg Weight Weight Bed scale Measurement Method Physical Exam General Appearance: Alert, Oriented X3, Cooperative Skin: No Rashes, No Breakdown HEENT: Atraumatic, PERRLA Neck: Supple Cardiovascular: Normal S1, Normal S2, systolic murmur present Lungs: Clear to Auscultation, Normal Air Movement Abdomen: Normal Bowel Sounds, Soft, No Tenderness Neurological: Normal Gait, Normal Speech, Normal Tone, Sensation Intact Extremities: No Clubbing, No Cyanosis Vascular: Normal Pulses Current Medications: Current Medications Sig/Heena Start time Last Medication Dose Route Stop Time Status Admin Acetaminophen 650 MG Q6P PRN 01/19 0845 AC 01/21 PO 0610 Acetaminophen 1,000 MG Q6P PRN 01/19 0845 AC IV Albuterol Sulfate 3 ML EVERY 4 HRS/AWAKE 01/19 1200 AC 01/23 INH 0220 Albuterol Sulfate 2 PUF Q4-6 PRN PRN 01/19 0845 AC INH Aspirin Buffered 81 MG DAILY 01/19 1000 AC 01/22 PO 0907 Atorvastatin Calcium 20 MG QPM 01/19 2200 AC 01/22 PO 210 Budesonide/ 2 PUF BID 01/19 1000 AC 01/22 Formoterol Fumarate INH 210 Ceftriaxone Sodium 1,000 MG DAILY 01/20 1000 AC 01/22 IV 0909 Cholecalciferol 1,000 IU DAILY 01/19 1000 AC 01/22 PO 0907 Diltiazem HCl 120 MG DAILY 01/19 1000 AC 01/22 PO 0908 Fluticasone 2 SPRAY DAILY 01/19 1000 AC 01/22 Propionate MARCO 0908 Furosemide 40 MG BID 01/19 1000 AC 01/22 PO 210 Guaifenesin 1,200 MG Q12 01/19 1000 AC 01/22 PO 2104 Losartan Potassium 50 MG BID 01/19 1000 AC 01/22 PO 210 Magnesium Oxide 400 MG DAILY 01/19 1000 AC 01/22 PO 0908 Melatonin 5 MG AT BEDTIME 01/21 2200 AC 01/22 PO 2104 Metoprolol Succinate 25 MG DAILY 01/19 1000 AC 01/22 PO 0907 Omeprazole 40 MG DAILY AC 01/19 0839 AC 01/23 PO 0534 Ondansetron HCl 4 MG Q6P PRN 01/19 0845 AC 01/20 IV 0835 Oxycodone/ 2 TAB Q6P PRN 01/19 0845 AC 01/23 Acetaminophen PO 0535 Patient Medication 1 ED ONE ONE 01/22 1730 SD Teaching ED 01/22 1731 Potassium Chloride 20 MEQ DAILY 01/19 1000 AC 01/22 PO 0907 Prednisone 30 MG DAILY 01/27 1000 AC PO 01/28 1001 Prednisone 40 MG DAILY 01/25 1000 AC PO 01/26 1001 Prednisone 50 MG DAILY 01/23 1000 AC PO 01/24 1001 Prednisone 60 MG DAILY 01/22 1000 DC 01/22 PO 01/22 1001 0908 Rivaroxaban 15 MG DAILY 01/19 1000 AC 01/22 PO 0910 Last 24 Hrs of Lab/Jem Results Last 24 Hrs of Labs/Mics: Laboratory Tests 01/23/18 0655: Sodium Pending, Potassium Pending, Chloride Pending, Carbon Dioxide Pending, Anion Gap Pending, BUN Pending, Creatinine Pending, BUN/Creatinine Ratio Pending , CBC w Diff NO MAN DIFF REQ, RBC 3.03 L, MCV 75.8 L, MCH 24.7 L, MCHC 32.5 L, RDW 17.7 H, MPV 7.7, Gran % 80.4 H, Lymphocytes % 12.4 L, Monocytes % 7.1, Eosinophils % 0, Basophils % 0.1, Absolute Granulocytes 9.9 H, Absolute Lymphocytes 1.5, Absolute Monocytes 0.9 H, Absolute Eosinophils 0, Absolute Basophils 0 01/22/18913: CBC w Diff MAN DIFF ORDERED, RBC 3.15 L, MCV 76.7 L, MCH 24.7 L, MCHC 32.2 L , RDW 18.0 H, MPV 8.1, Gran % 91.7 H, Lymphocytes % 4.7 L, Monocytes % 3.4, Eosinophils % 0, Basophils % 0.2, Absolute Granulocytes 14.5 H, Absolute Lymphocytes 0.8 L, Absolute Monocytes 0.5, Absolute Eosinophils 0, Absolute Basophils 0, Platelet Estimate VERIFIED BY SMEAR, Polychromasia 1+, Hypochromic- Microcytic 1+, Poikilocytosis 1+, Anisocytosis 1+, Microcytic Cells 1+, Ovalocytes 1+, [place] Cells 1+ Assessment/Plan Assessment: 87-year-old female with PMH significant for A.fib on anticoagulation, chronic diastolic CHF on Lasix, HTN, HLD, COPD not on home oxygen, NSCLC and carcinoid tumor, with B/L lobectomies and s/p radiation for a lingular nodule, and radiation pneumonitis, multinodular thyroid gland, GERD, osteoarthritis, left lower extremity open wound presented to the hospital for evaluation of acute shortness of breath. Admitted to [facility] as gen med hold for Strep pneumonia, transferred to general medicine floor. Problem list 1. Community accquired Step pneumonia 2. Atrial fibrillation 3. Chronic diastolic heart failure 4. Hypertension 5. Hyperlipidemia 6. COPD 7. GERD 8. Chronic left lower extremity wound Community acquired Strep pneumonia Urine strep test positive and continued on IV ceftriaxone day 5. Improved hemoptysis with overall improvement in cough/SOB. CT chest did show diffuse heterogenous attenuation with superadded infectious process in the left lower lobe region. Continue oral steroid taper. Try to taper oxygen down. Oxygen need to be tapered off. We will try ambulatory saturations tomorrow. Ruled out PE She was ruled out for PE with VQ scan given elevated D-dimer with history of cancer. Chronic left lower extremity wound She has wound that is healing well with granulation tissue and she was following up at the wound care center and undergoing regular dressing changes with home health services. Wound care consult palced with Dr. Mckeon. Daily dressings Acute drop in H&H Still <8, so goal Hb would be >8. Yesterday H&H could be artifact. We will continue to monitor at this point. She remains desaturating with ambulation. A unit is transfused to improve oxygenation, Hb. ECHO is unremarkable. #Atrial fibrillation continue aspirin, Cardizem 120 mg daily, and xaralto 15 daily #Chronic diastolic heart failure continue home medication Lasix 40 twice daily #Hypertension continue home medication losartan 50 twice daily, metoprolol succinate 25 daily #Hyperlipidemia continue atorvastatin 20 daily #COPD, not on home oxygen continue inhaler treatments, Mucinex #GERD continue omeprazole DVT prophylaxis On xarelto Code status Full code Problem List: 1. Pneumonia 2. Dyspnea 3. CHF (congestive heart failure) 4. Leukocytosis 5. Open wound of leg Pain Ratin Pain Location: n/a Pain Goal: Pain 4 or less Pain Plan: tylenol prn Tomorrow's Labs & Rationales: none
[2018-01-23 07:50] VITALS: BP 148/68
[2018-01-23 08:03] LABS: ABSOLUTE BASOPHIL COUNT 0 /CUMM (0.0-0.2); ABSOLUTE EOSINOPHIL COUNT 0 /CUMM (0.0-0.7); ABSOLUTE GRANULOCYTE CT 9.9 /CUMM (1.4-6.5); ABSOLUTE LYMPH COUNT 1.5 /CUMM (1.2-3.4); ABSOLUTE MONOCYTE COUNT 0.9 /CUMM (0.10-0.60); BASOPHIL % 0.1 % (0.0-2.0); EOSINOPHIL % 0 % (0-5); GRANULOCYTE % 80.4 % (42.2-75.2); MEAN CORPUSCULAR HGB 24.7 PG (27.0-31.0); MEAN CORPUSCULAR HGB CONC 32.5 G/DL (33.0-37.0); MEAN CORPUSCULAR VOLUME 75.8 FL (81.0-99.0); MEAN PLATELET VOLUME 7.7 FL (7.4-10.4); PLATELET COUNT 397 /CUMM (130-400); RBC DISTRIBUTION WIDTH 17.7 % (11.5-14.5); RED BLOOD CELL CT 3.03 /CUMM (4.20-5.40); WHITE BLOOD CELL COUNT 12.3 /CUMM (4.8-10.8)
--- NOTE | 2018-01-23 10:50 | RADIOLOGY REPORT ---
EXAMINATION: CR PORTABLE CHEST CLINICAL INFORMATION: Shortness of breath. Presumptive diagnosis of pneumonia, congestion. COMPARISON: Multiple prior chest x-rays, most recent of which is dated 01/19/2018. TECHNIQUE: Portable AP erect view of the chest was obtained. FINDINGS: The cardiomediastinal silhouette is enlarged. Calcification and tortuosity of the aorta is seen. Lungs bilaterally are symmetrically hypoinflated and demonstrate diffusely increased reticular opacities, unchanged compared to the prior exam. No pneumothorax is seen. Bony structures are unremarkable. IMPRESSION: Low lung volumes and diffuse pulmonary opacities again noted, unchanged from prior exam. Findings are consistent with diffuse pneumonitis as clinically suspected.
--- NOTE | 2018-01-23 11:25 | PN- Att Addend ---
Attending Addendum Attending Brief Note Looking and feeling much better ambulated a little unit in no respiratory distress Vital signs are stable no fever but no major changes on physical appreciate cardiology's input and recommendations, also pulmonary and wound patient will have an echocardiogram today and will be restarted on springer anticoagulation. If stable in a.m. may start disposition plans Intake & Output 01/23 1600 01/23 0400 01/22 1600 01/22 0400 01/21 1600 01/21 0400 Intake Total 480 045 965 9568 360 Output Total 900 650 300 300 125 550 Balance -900 -170 498 481 8171 -190 Intake, IV 10 20 Intake, Oral 480 082 154 1095 360 Number 0 1 Bowel Movements Output, Urine 900 650 300 300 125 550 Patient 176 lb 167 lb Weight Weight Bed scale Reported by Patient Measurement Method Current Medications Sig/Heena Start time Last Medication Dose Route Stop Time Status Admin Acetaminophen 650 MG Q6P PRN 01/19 0845 AC 01/21 PO 0610 Acetaminophen 1,000 MG Q6P PRN 01/19 0845 AC IV Albuterol Sulfate 3 ML EVERY 4 HRS/AWAKE 01/19 1200 AC 01/23 INH 0831 Albuterol Sulfate 2 PUF Q4-6 PRN PRN 01/19 0845 AC INH Aspirin Buffered 81 MG DAILY 01/19 1000 AC 01/23 PO 0908 Atorvastatin Calcium 20 MG QPM 01/19 2200 AC 01/22 PO 2102 Budesonide/ 2 PUF BID 01/19 1000 AC 01/23 Formoterol Fumarate INH 0909 Ceftriaxone Sodium 1,000 MG DAILY 01/20 1000 AC 01/23 IV 0909 Cholecalciferol 1,000 IU DAILY 01/19 1000 AC 01/23 PO 0909 Diltiazem HCl 120 MG DAILY 01/19 1000 AC 01/23 PO 0908 Fluticasone 2 SPRAY DAILY 01/19 1000 AC 01/23 Propionate MARCO 0909 Furosemide 40 MG BID 01/19 1000 AC 01/23 PO 0908 Guaifenesin 1,200 MG Q12 01/19 1000 AC 01/23 PO 0908 Losartan Potassium 50 MG BID 01/19 1000 AC 01/23 PO 0908 Magnesium Oxide 400 MG DAILY 01/19 1000 AC 01/23 PO 0908 Melatonin 5 MG AT BEDTIME 01/21 2200 AC 01/22 PO 2104 Metoprolol Succinate 25 MG DAILY 01/19 1000 AC 01/23 PO 0909 Omeprazole 40 MG DAILY AC 01/19 0839 AC 01/23 PO 0534 Ondansetron HCl 4 MG Q6P PRN 01/19 0845 AC 01/20 IV 0835 Oxycodone/ 2 TAB Q6P PRN 01/19 0845 AC 01/23 Acetaminophen PO 0535 Patient Medication 1 ED ONE ONE 01/22 1730 DC Teaching ED 01/22 1731 Potassium Chloride 20 MEQ DAILY 01/19 1000 AC 01/23 PO 0908 Prednisone 30 MG DAILY 01/27 1000 AC PO 01/28 1001 Prednisone 40 MG DAILY 01/25 1000 AC PO 01/26 1001 Prednisone 50 MG DAILY 01/23 1000 AC 01/23 PO 01/24 1001 0908 Rivaroxaban 15 MG DAILY 01/19 1000 AC 01/23 PO 0908 Laboratory Tests 01/23/18 0655: Anion Gap 10, Estimated GFR 59 L, BUN/Creatinine Ratio 37.8 H, CBC w Diff NO MAN DIFF REQ, RBC 3.03 L, MCV 75.8 L, MCH 24.7 L, MCHC 32.5 L, RDW 17.7 H, MPV 7.7, Gran % 80.4 H, Lymphocytes % 12.4 L, Monocytes % 7.1, Eosinophils % 0 , Basophils % 0.1, Absolute Granulocytes 9.9 H, Absolute Lymphocytes 1.5, Absolute Monocytes 0.9 H, Absolute Eosinophils 0, Absolute Basophils 0 01/22/18 0914: CBC w Diff MAN DIFF ORDERED, RBC 3.15 L, MCV 76.7 L, MCH 24.7 L, MCHC 32.2 L , RDW 18.0 H, MPV 8.1, Gran % 91.7 H, Lymphocytes % 4.7 L, Monocytes % 3.4, Eosinophils % 0, Basophils % 0.2, Absolute Granulocytes 14.5 H, Absolute Lymphocytes 0.8 L, Absolute Monocytes 0.5, Absolute Eosinophils 0, Absolute Basophils 0, Platelet Estimate VERIFIED BY SMEAR, Polychromasia 1+, Hypochromic- Microcytic 1+, Poikilocytosis 1+, Anisocytosis 1+, Microcytic Cells 1+, Ovalocytes 1+, Navid Cells 1+ 01/21/18 0631: Anion Gap 13, Estimated GFR 47 L, BUN/Creatinine Ratio 32.7 H, CBC w Diff NO MAN DIFF REQ, RBC 2.83 L, MCV 76.9 L, MCH 25.2 L, MCHC 32.8 L, RDW 18.6 H, MPV 8.1, Gran % 92.8 H, Lymphocytes % 4.3 L, Monocytes % 2.9, Eosinophils % 0, Basophils % 0, Absolute Granulocytes 11.8 H, Absolute Lymphocytes 0.5 L, Absolute Monocytes 0.4, Absolute Eosinophils 0, Absolute Basophils 0 Vital Signs Date Time Temp Pulse Resp B/P B/P Pulse O2 O2 Flow FiO2 Mean Ox Delivery Rate 01/23 0909 84 146/62 01/23 0908 84 146/62 01/23 0832 94 Nasal 1.0L Cannula 01/23 0800 93 Nasal 1.0L Cannula 01/23 0750 98.0 88 18 148/68 95 Room Air 01/23 0232 96 Nasal 1.0L Cannula 01/23 0000 Nasal 1.0L Cannula 01/22 2134 97.9 88 18 150/65 95 Nasal 1.0L Cannula 01/22 2104 93 150/65 01/22 1646 94 Nasal 1.0L Cannula 01/22 1600 94 Nasal 1.0L Cannula 01/22 1327 98.1 85 20 118/70 91 Nasal 1.0L Cannula White count is down again.
--- NOTE | 2018-01-23 12:06 | PN- Pulmonary ---
Subjective HPI/Critical Care Issues: Patient seen and examined she is ambulating with physical therapy and she is improving. Objective Current Medications: Current Medications Sig/Heena Start time Last Medication Dose Route Stop Time Status Admin Acetaminophen 650 MG Q6P PRN 01/19 0845 AC 01/21 PO 0610 Acetaminophen 1,000 MG Q6P PRN 01/19 0845 AC IV Albuterol Sulfate 3 ML EVERY 4 HRS/AWAKE 01/19 1200 AC 01/23 INH 1143 Albuterol Sulfate 2 PUF Q4-6 PRN PRN 01/19 0845 AC INH Aspirin Buffered 81 MG DAILY 01/19 1000 AC 01/23 PO 0908 Atorvastatin Calcium 20 MG QPM 01/19 2200 AC 01/22 PO 2102 Budesonide/ 2 PUF BID 01/19 1000 AC 01/23 Formoterol Fumarate INH 0909 Ceftriaxone Sodium 1,000 MG DAILY 01/20 1000 AC 01/23 IV 0909 Cholecalciferol 1,000 IU DAILY 01/19 1000 AC 01/23 PO 0909 Diltiazem HCl 120 MG DAILY 01/19 1000 AC 01/23 PO 0908 Fluticasone 2 SPRAY DAILY 01/19 1000 AC 01/23 Propionate MARCO 0909 Furosemide 40 MG BID 01/19 1000 AC 01/23 PO 0908 Guaifenesin 1,200 MG Q12 01/19 1000 AC 01/23 PO 0908 Losartan Potassium 50 MG BID 01/19 1000 AC 01/23 PO 0908 Magnesium Oxide 400 MG DAILY 01/19 1000 AC 01/23 PO 0908 Melatonin 5 MG AT BEDTIME 01/21 2200 AC 01/22 PO 2104 Metoprolol Succinate 25 MG DAILY 01/19 1000 AC 01/23 PO 0909 Omeprazole 40 MG DAILY AC 01/19 0839 AC 01/23 PO 0534 Ondansetron HCl 4 MG Q6P PRN 01/19 0845 AC 01/20 IV 0835 Oxycodone/ 2 TAB Q6P PRN 01/19 0845 AC 01/23 Acetaminophen PO 0535 Patient Medication 1 ED ONE ONE 01/22 1730 DC Teaching ED 01/22 1731 Potassium Chloride 20 MEQ DAILY 01/19 1000 AC 01/23 PO 0908 Prednisone 30 MG DAILY 01/27 1000 AC PO 01/28 1001 Prednisone 40 MG DAILY 01/25 1000 AC PO 01/26 1001 Prednisone 50 MG DAILY 01/23 1000 AC 01/23 PO 01/24 1001 0908 Rivaroxaban 15 MG DAILY 01/19 1000 AC 01/23 PO 0908 Vital Signs & I&O Last 24 Hrs of Vitals and I&O: Vital Signs Date Time Temp Pulse Resp B/P B/P Pulse O2 O2 Flow FiO2 Mean Ox Delivery Rate 01/23 0909 84 146/62 01/23 0908 84 146/62 01/23 0832 94 Nasal 1.0L Cannula 01/23 0800 93 Nasal 1.0L Cannula 01/23 0750 98.0 88 18 148/68 95 Room Air 01/23 0232 96 Nasal 1.0L Cannula 01/23 0000 Nasal 1.0L Cannula 01/22 2134 97.9 88 18 150/65 95 Nasal 1.0L Cannula 01/22 2104 93 150/65 01/22 1646 94 Nasal 1.0L Cannula 01/22 1600 94 Nasal 1.0L Cannula 01/22 1327 98.1 85 20 118/70 91 Nasal 1.0L Cannula Intake & Output 01/23 1600 01/23 0800 01/23 0000 Intake Total 480 Output Total 200 1050 300 Balance -200 -1050 180 Intake, Oral 480 Output, Urine 200 1050 300 Patient 176 lb Weight Weight Bed scale Measurement Method Exam Other Physical Findings: Generally - Awake, alert and comfortable without distress Head and neck - normocephalic, atraumatic, EOMI grossly intact Cardiovascular - S1, S2 Lungs -rare rhonchi Abdomen - Bowel sounds positive, soft, non-tender Extremities - without edema Results Last 24 Hrs of Lab Results: Laboratory Tests 01/23/18 0655: Anion Gap 10, Estimated GFR 59 L, BUN/Creatinine Ratio 37.8 H, CBC w Diff NO MAN DIFF REQ, RBC 3.03 L, MCV 75.8 L, MCH 24.7 L, MCHC 32.5 L, RDW 17.7 H, MPV 7.7, Gran % 80.4 H, Lymphocytes % 12.4 L, Monocytes % 7.1, Eosinophils % 0 , Basophils % 0.1, Absolute Granulocytes 9.9 H, Absolute Lymphocytes 1.5, Absolute Monocytes 0.9 H, Absolute Eosinophils 0, Absolute Basophils 0 Impression/Plan Impression/Plan Impression/Plan: Impression 87-year-old woman here with streptococcal pneumonia with scattered groundglass opacities bilaterally. Causing mild exacerbation of COPD. Plan -cont abx -PT -trc/nebs -check ambulatory sats DVT prophylaxis at all times DC planning
[2018-01-23 14:12] VITALS: BP 138/70
--- NOTE | 2018-01-23 18:26 | ECHOCARDIOGRAM REPORT ---
THOMAS HDZ Age: 87 : 1930 Gender: F Exam Date: 01/23/2018 13:40 Exam Location: [address] [place] [address] Ht (in): 62 Wt (lb): 167 BSA: 1.85 BP: 150 / 65 Ordering Physician: Marsha Bro MD Referring Physician: Marsha Bro MD Technologist: Hari Montoya [facility] Room Number: 216-01 Indications: HEART FAILURE Rhythm: Atrial fibrillation Technical Quality: fair FINDINGS Left Ventricle Small left ventricular cavity. Mild concentric left ventricular hypertrophy. No obvious regional wall motion abnormalities. Hyperdynamic left ventricular systolic function. Normal left ventricular ejection fraction estimated at 65-70%. Right Ventricle Normal right ventricular size and function. Right Atrium Moderate to severe right atrial dilatation. Left Atrium Moderate to severe left atrial dilatation. Mitral Valve Moderate mitral annular calcification. Mitral valve moderately thickened. Mild to moderate mitral stenosis. Mild mitral regurgitation. Aortic Valve Diffuse thickening of the aortic valve cusps with reduced excursion. Mild aortic stenosis. [id number] aortic regurgitation. Tricuspid Valve Structurally normal tricuspid valve. Moderate to severe tricuspid regurgitation. Severe pulmonary hypertension. Right ventricular systolic pressure estimated to be elevated at 68 mmHg. Pulmonic Valve Pulmonic valve not well visualized, grossly normal. Trace to mild pulmonic regurgitation. Pericardium No pericardial effusion. Great Vessels Normal size aortic root. Mildly dilated proximal ascending aorta (tube). CONCLUSIONS Small left ventricular cavity. Mild concentric left ventricular hypertrophy. Hyperdynamic left ventricular systolic function. Normal left ventricular ejection fraction estimated at 65-70%. Normal right ventricular size and function. Moderate to severe atrial dilatation. Mild to moderate mitral stenosis. Mild mitral regurgitation. Mild aortic stenosis. [id number] aortic regurgitation. Moderate to severe tricuspid regurgitation. Severe pulmonary hypertension. Trace to mild pulmonic regurgitation. Mildly dilated proximal ascending aorta (tube). Darian Stearns M.D. (Electronically Signed) Final Date: 23 January 2018 18:25 MEASUREMENTS (Male / Female) Normal Values 2D ECHO LV Diastolic Diameter PLAX 3.5 cm 4.2 - 5.9 / 3.9 - 5.3 cm LV Systolic Diameter PLAX 1.5 cm 2.1 - 4.0 cm LV Fractional Shortening PLAX 57.1 % 25 - 46 % LV Ejection Fraction 2D Teich 88.1 % IVS Diastolic Thickness 1.3 cm LVPW Diastolic Thickness 1.2 cm LV Relative Wall Thickness 0.7 LVOT Diameter 2.1 cm Aortic Root Diameter 2.4 cm LA Systolic Diameter LX 4.5 cm 3.0 - 4.0 / 2.7 - 3.8 cm Ascending Aorta Diameter 3.6 cm DOPPLER AV Peak Velocity 251.0 cm/s AV Peak Gradient 25.2 mmHg AV Mean Velocity 173.0 cm/s AV Mean Gradient 15.0 mmHg AV Velocity Time Integral 40.9 cm LVOT Peak Velocity 166.0 cm/s LVOT Peak Gradient 11.0 mmHg LVOT Mean Velocity 120.0 cm/s LVOT Mean Gradient 7.0 mmHg LVOT Velocity Time Integral 29.0 cm LVOT Stroke Volume 100.4 cm LVOT Cardiac Index 4239.7 cm/minm AV Area Cont Eq vti 2.5 cm AV Area Cont Eq pk 2.3 cm Mitral E Point Velocity 177.0 cm/s MV Deceleration Time 401.0 ms TR Peak Velocity 381.0 cm/s TR Peak Gradient 58.1 mmHg PV Peak Velocity 93.7 cm/s PV Peak Gradient 3.5 mmHg
--- NOTE | 2018-01-23 19:16 | PN- Cardiology ---
Subjective Subjective: Intermittent lower extremity discomfort, but overall improved. Objective Vital Signs and I&Os Vital Signs Date Time Temp Pulse Resp B/P B/P Pulse O2 O2 Flow FiO2 Mean Ox Delivery Rate 01/23 1600 94 Nasal 1.0L Cannula 01/23 1556 96 Nasal 1.0L Cannula 01/23 1412 98.1 92 18 138/70 94 Nasal 1.0L Cannula 01/23 0909 84 146/62 01/23 0908 84 146/62 01/23 0832 94 Nasal 1.0L Cannula 01/23 0800 93 Nasal 1.0L Cannula 01/23 0750 98.0 88 18 148/68 95 Room Air 01/23 0232 96 Nasal 1.0L Cannula 01/23 0000 Nasal 1.0L Cannula 01/22 2134 97.9 88 18 150/65 95 Nasal 1.0L Cannula 01/22 2104 93 150/65 Intake & Output 01/23 1600 01/23 0800 01/23 0000 01/22 1600 01/22 0800 01/22 0000 Intake Total 750 480 720 240 610 Output Total 800 1050 300 300 300 Balance -50 -1050 180 720 -60 310 Intake, IV 30 10 Intake, Oral 720 480 720 240 600 Number 2 0 Bowel Movements Output, Urine 800 1050 300 300 300 Patient 176 lb Weight Weight Bed scale Measurement Method Current Medications: Current Medications Sig/Heena Start time Last Medication Dose Route Stop Time Status Admin Acetaminophen 650 MG Q6P PRN 01/19 0845 AC 01/21 PO 0610 Acetaminophen 1,000 MG Q6P PRN 01/19 0845 AC IV Albuterol Sulfate 3 ML EVERY 4 HRS/AWAKE 01/19 1200 AC 01/23 INH 1554 Albuterol Sulfate 2 PUF Q4-6 PRN PRN 01/19 0845 AC INH Aspirin Buffered 81 MG DAILY 01/19 1000 AC 01/23 PO 0908 Atorvastatin Calcium 20 MG QPM 01/19 2200 AC 01/22 PO 210 Budesonide/ 2 PUF BID 01/19 1000 AC 01/23 Formoterol Fumarate INH 0909 Ceftriaxone Sodium 1,000 MG DAILY 01/20 1000 AC 01/23 IV 0909 Cholecalciferol 1,000 IU DAILY 01/19 1000 AC 01/23 PO 0909 Diltiazem HCl 120 MG DAILY 01/19 1000 AC 01/23 PO 0908 Fluticasone 2 SPRAY DAILY 01/19 1000 AC 01/23 Propionate MARCO 0909 Furosemide 40 MG BID 01/19 1000 AC 01/23 PO 0908 Guaifenesin 1,200 MG Q12 01/19 1000 AC 01/23 PO 0908 Losartan Potassium 50 MG BID 01/19 1000 AC 01/23 PO 0908 Magnesium Oxide 400 MG DAILY 01/19 1000 AC 01/23 PO 0908 Melatonin 5 MG AT BEDTIME 01/21 2200 AC 01/22 PO 2104 Metoprolol Succinate 25 MG DAILY 01/19 1000 AC 01/23 PO 0909 Omeprazole 40 MG DAILY AC 01/19 0839 AC 01/23 PO 0534 Ondansetron HCl 4 MG Q6P PRN 01/19 0845 AC 01/20 IV 0835 Oxycodone/ 2 TAB Q6P PRN 01/19 0845 AC 01/23 Acetaminophen PO 1523 Potassium Chloride 20 MEQ DAILY 01/19 1000 AC 01/23 PO 0908 Prednisone 30 MG DAILY 01/27 1000 AC PO 01/28 1001 Prednisone 40 MG DAILY 01/25 1000 AC PO 01/26 1001 Prednisone 50 MG DAILY 01/23 1000 AC 01/23 PO 01/25 1002 0908 Rivaroxaban 15 MG DAILY 01/19 1000 AC 01/23 PO 0908 Results Last 48 Hrs of Labs/Mics: Laboratory Tests 01/23/18 0655: Anion Gap 10, Estimated GFR 59 L, BUN/Creatinine Ratio 37.8 H, CBC w Diff NO MAN DIFF REQ, RBC 3.03 L, MCV 75.8 L, MCH 24.7 L, MCHC 32.5 L, RDW 17.7 H, MPV 7.7, Gran % 80.4 H, Lymphocytes % 12.4 L, Monocytes % 7.1, Eosinophils % 0 , Basophils % 0.1, Absolute Granulocytes 9.9 H, Absolute Lymphocytes 1.5, Absolute Monocytes 0.9 H, Absolute Eosinophils 0, Absolute Basophils 0 01/22/18 0914: CBC w Diff MAN DIFF ORDERED, RBC 3.15 L, MCV 76.7 L, MCH 24.7 L, MCHC 32.2 L , RDW 18.0 H, MPV 8.1, Gran % 91.7 H, Lymphocytes % 4.7 L, Monocytes % 3.4, Eosinophils % 0, Basophils % 0.2, Absolute Granulocytes 14.5 H, Absolute Lymphocytes 0.8 L, Absolute Monocytes 0.5, Absolute Eosinophils 0, Absolute Basophils 0, Platelet Estimate VERIFIED BY SMEAR, Polychromasia 1+, Hypochromic- Microcytic 1+, Poikilocytosis 1+, Anisocytosis 1+, Microcytic Cells 1+, Ovalocytes 1+, Groves Cells 1+ Recent Imaging Studies: CXR 01/23/2018: Low lung volumes and diffuse pulmonary opacities again noted, unchanged from prior exam. Findings are consistent with diffuse pneumonitis as clinically suspected. Echocardiogram 01/23/2018: Small left ventricular cavity. Mild concentric left ventricular hypertrophy. Hyperdynamic left ventricular systolic function. Normal left ventricular ejection fraction estimated at 65-70%. Normal right ventricular size and function. Moderate to severe atrial dilatation. Mild to moderate mitral stenosis. Mild mitral regurgitation. Mild aortic stenosis. [id number] aortic regurgitation. Moderate to severe tricuspid regurgitation. Severe pulmonary hypertension. Trace to mild pulmonic regurgitation. Mildly dilated proximal ascending aorta (tube). 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 s/p R & L lower lobectomies (2006, 2007) w/ recurrence and radiation Rx (2013) complicated by radiation pneumonitis , carotid artery disease, mild , mild LVH, mild AR, mild-moderate MS, mild MR, moderate TR, moderate pulmonary HTN, normal systolic function by echo (2016), & mild CAD by remote cardiac cath (February 2000), previous HFpEF, & recently diagnosed AF on Xarelto (rivaroxaban), s/p LLE trauma w/ hematoma ~3-1/ 2 weeks [employer], s/p hematoma evacuation on 12/22/2017, w/ postoperative course complicated by respiratory distress, treated w/ Azithromycin & prednisone who was discharged on a steroid taper and who was admitted on 01/07/2018 after an outpatient CBC revealed a leukocytosis of 22,000. ID found her to be afebrile and felt as though her LLE wound had improved and was w/o evidence of residual infection and suspected the leukocytosis was on the basis of steroid therapy. They also felt that the subcutaneous gas noted on her recent x-ray was 2/2 to the open wound and felt she could be observed off antimicrobial therapy. She also had a drop in her H/H on 01/21/2018, that was better on 01/22/2018 but dropped again this morning and will be receiving PRBCs this evening. Fortunately, remains hemodynamically stable from a CV standpoint and continues to have preserved left ventricular systolic function by today's echocardiogram. . Continue telemetry? Not applicable
[2018-01-23 22:00] VITALS: BP 130/72
[2018-01-24 05:43] VITALS: BP 148/82
--- NOTE | 2018-01-24 07:03 | PN- Housestaff ---
See Addendum Subjective Follow-up For: Strep pneumonia Diastolic heart failure Complaints: no complaints Subjective: Seen and examined. Improving Review of Systems Constitutional: Reports: no symptoms. Objective Last 24 Hrs of Vital Signs/I&O Vital Signs Date Time Temp Pulse Resp B/P B/P Pulse O2 O2 Flow FiO2 Mean Ox Delivery Rate 01/24 0543 97.4 80 20 148/82 97 Nasal 1.0L Cannula 01/24 0000 Nasal 1.0L Cannula 01/23 2200 98.0 84 20 130/72 94 Nasal 1.0L Cannula 01/23 2112 84 130/72 01/23 1600 94 Nasal 1.0L Cannula 01/23 1556 96 Nasal 1.0L Cannula 01/23 1412 98.1 92 18 138/70 94 Nasal 1.0L Cannula 01/23 0909 84 146/62 01/23 0908 84 146/62 01/23 0832 94 Nasal 1.0L Cannula 01/23 0800 93 Nasal 1.0L Cannula 01/23 0750 98.0 88 18 148/68 95 Room Air Intake & Output 01/24 0800 01/24 0000 01/23 1600 Intake Total 120 1010 750 Output Total 1050 400 800 Balance -930 610 -50 Intake, Blood 350 Product Intake, IV 60 30 Intake, Oral 120 600 720 Number 2 Bowel Movements Output, Urine 1050 400 800 Patient 177 lb 176 lb Weight Physical Exam General Appearance: Alert, Oriented X3, Cooperative Skin Temp/Moisture Exam: Warm/Dry Cardiovascular: Regular Rate, Normal S1, Normal S2 Lungs: Clear to Auscultation Abdomen: No Tenderness Extremities: Normal Pulses Current Medications: Current Medications Sig/Heena Start time Last Medication Dose Route Stop Time Status Admin Acetaminophen 650 MG Q6P PRN 01/19 0845 AC 01/21 PO 0610 Acetaminophen 1,000 MG Q6P PRN 01/19 0845 AC IV Albuterol Sulfate 3 ML EVERY 4 HRS/AWAKE 01/19 1200 AC 01/23 INH 2018 Albuterol Sulfate 2 PUF Q4-6 PRN PRN 01/19 0845 AC INH Aspirin Buffered 81 MG DAILY 01/19 1000 AC 01/23 PO 0908 Atorvastatin Calcium 20 MG QPM 01/19 2200 AC 01/23 PO 211 Budesonide/ 2 PUF BID 01/19 1000 AC 01/23 Formoterol Fumarate INH 2113 Ceftriaxone Sodium 1,000 MG DAILY 01/20 1000 AC 01/23 IV 0909 Cholecalciferol 1,000 IU DAILY 01/19 1000 AC 01/23 PO 0909 Diltiazem HCl 120 MG DAILY 01/19 1000 AC 01/23 PO 0908 Fluticasone 2 SPRAY DAILY 01/19 1000 AC 01/23 Propionate MARCO 0909 Furosemide 40 MG BID 01/19 1000 AC 01/23 PO 2112 Guaifenesin 1,200 MG Q12 01/19 1000 AC 01/23 PO 2112 Losartan Potassium 50 MG BID 01/19 1000 AC 01/23 PO 2112 Magnesium Oxide 400 MG DAILY 01/19 1000 AC 01/23 PO 0908 Melatonin 5 MG AT BEDTIME 01/21 2200 AC 01/23 PO 2112 Metoprolol Succinate 25 MG DAILY 01/19 1000 AC 01/23 PO 0909 Omeprazole 40 MG DAILY AC 01/19 0839 AC 01/24 PO 0618 Ondansetron HCl 4 MG Q6P PRN 01/19 0845 AC 01/20 IV 0835 Oxycodone/ 2 TAB Q6P PRN 01/19 0845 AC 01/24 Acetaminophen PO 0634 Potassium Chloride 20 MEQ DAILY 01/19 1000 AC 01/23 PO 0908 Prednisone 30 MG DAILY 01/27 1000 CAN PO 01/28 1001 Prednisone 40 MG DAILY 01/25 1000 CAN PO 01/26 1001 Prednisone 50 MG DAILY 01/24 1000 AC PO 02/03 0959 Prednisone 50 MG DAILY 01/23 1000 DC 01/23 PO 01/25 1002 0908 Rivaroxaban 15 MG DAILY 01/19 1000 AC 01/23 PO 0908 Lines/Diet/Fluids Lines: peripheral lines Assessment/Plan Assessment: 87-year-old female with PMH significant for A.fib on anticoagulation, chronic diastolic CHF on Lasix, HTN, HLD, COPD not on home oxygen, NSCLC and carcinoid tumor, with B/L lobectomies and s/p radiation for a lingular nodule, and radiation pneumonitis, multinodular thyroid gland, GERD, osteoarthritis, left lower extremity open wound presented to the hospital for evaluation of acute shortness of breath. Admitted to [facility] as gen med hold for Strep pneumonia, transferred to general medicine floor. Problem list 1. Community accquired Step pneumonia 2. Atrial fibrillation 3. Chronic diastolic heart failure 4. Hypertension 5. Hyperlipidemia 6. COPD 7. GERD 8. Chronic left lower extremity wound Community acquired Strep pneumonia Urine strep test positive and continued on IV ceftriaxone day 6 today; consider switcihg to johnathan antibiotics. Try to taper oxygen down and get ambulatory saturations Discharge planning-If O2 successfully tapered off; can discharge pt on PO keflex for a total of 10 days of antibiotics. Chronic left lower extremity wound She has wound that is healing well with granulation tissue and she was following up at the wound care center and undergoing regular dressing changes with home health services. Wound care consult palced with Dr. Mckeon. Daily dressings Acute drop in H&H Was transfused 1 unit of PRBC F/U AM CBC #Atrial fibrillation continue aspirin, Cardizem 120 mg daily, and xaralto 15 daily #Chronic diastolic heart failure continue home medication Lasix 40 twice daily #Hypertension continue home medication losartan 50 twice daily, metoprolol succinate 25 daily #Hyperlipidemia continue atorvastatin 20 daily #COPD, not on home oxygen continue inhaler treatments, Mucinex #GERD continue omeprazole DVT prophylaxis On xarelto Code status Full code Problem List: 1. Pneumonia 2. A-fib 3. Open wound of leg Pain Ratin Pain Location: na Pain Goal: Remain pain free Pain Plan: tylenol prn Tomorrow's Labs & Rationales: none
[2018-01-24 08:51] LABS: ABSOLUTE BASOPHIL COUNT 0 /CUMM (0.0-0.2); ABSOLUTE EOSINOPHIL COUNT 0 /CUMM (0.0-0.7); BASOPHIL % 0.1 % (0.0-2.0); EOSINOPHIL % 0.1 % (0-5); MEAN PLATELET VOLUME 7.9 FL (7.4-10.4)
[2018-01-24 09:38] LABS: ABSOLUTE GRANULOCYTE CT 7.8 /CUMM (1.4-6.5); ABSOLUTE LYMPH COUNT 1.6 /CUMM (1.2-3.4); ABSOLUTE MONOCYTE COUNT 0.8 /CUMM (0.10-0.60); MEAN CORPUSCULAR HGB 25.6 PG (27.0-31.0); MEAN CORPUSCULAR HGB CONC 32.5 G/DL (33.0-37.0); MEAN CORPUSCULAR VOLUME 78.8 FL (81.0-99.0); RBC DISTRIBUTION WIDTH 18.9 % (11.5-14.5); RED BLOOD CELL CT 3.56 /CUMM (4.20-5.40); WHITE BLOOD CELL COUNT 10.3 /CUMM (4.8-10.8)
[2018-01-24 10:44] LABS: PLATELET COUNT 379 /CUMM (130-400)
--- NOTE | 2018-01-24 11:49 | PN- Pulmonary ---
Subjective HPI/Critical Care Issues: Patient seen and examined this morning. She is afebrile and saturating 96%. Objective Current Medications: Current Medications Sig/Heena Start time Last Medication Dose Route Stop Time Status Admin Acetaminophen 650 MG Q6P PRN 01/19 0845 AC 01/21 PO 0610 Acetaminophen 1,000 MG Q6P PRN 01/19 0845 AC IV Albuterol Sulfate 3 ML EVERY 4 HRS/AWAKE 01/19 1200 AC 01/24 INH 1148 Albuterol Sulfate 2 PUF Q4-6 PRN PRN 01/19 0845 AC INH Aspirin Buffered 81 MG DAILY 01/19 1000 AC 01/24 PO 1030 Atorvastatin Calcium 20 MG QPM 01/19 2200 AC 01/23 PO 2113 Budesonide/ 2 PUF BID 01/19 1000 AC 01/24 Formoterol Fumarate INH 1029 Ceftriaxone Sodium 1,000 MG DAILY 01/20 1000 AC 01/24 IV 1031 Cholecalciferol 1,000 IU DAILY 01/19 1000 AC 01/24 PO 1030 Diltiazem HCl 120 MG DAILY 01/19 1000 AC 01/24 PO 1029 Fluticasone 2 SPRAY DAILY 01/19 1000 AC 01/24 Propionate MARCO 1028 Furosemide 40 MG BID 01/19 1000 AC 01/24 PO 1030 Guaifenesin 1,200 MG Q12 01/19 1000 AC 01/24 PO 1030 Losartan Potassium 50 MG BID 01/19 1000 AC 01/24 PO 1029 Magnesium Oxide 400 MG DAILY 01/19 1000 AC 01/24 PO 1030 Melatonin 5 MG AT BEDTIME 01/21 2200 AC 01/23 PO 2112 Metoprolol Succinate 25 MG DAILY 01/19 1000 AC 01/24 PO 1030 Omeprazole 40 MG DAILY AC 01/19 0839 AC 01/24 PO 0618 Ondansetron HCl 4 MG Q6P PRN 01/19 0845 AC 01/20 IV 0835 Oxycodone/ 2 TAB Q6P PRN 01/19 0845 AC 01/24 Acetaminophen PO 0634 Potassium Chloride 20 MEQ DAILY 01/19 1000 AC 01/24 PO 1030 Prednisone 30 MG DAILY 01/27 1000 CAN PO 01/28 1001 Prednisone 40 MG DAILY 01/25 1000 CAN PO 01/26 1001 Prednisone 50 MG DAILY 01/24 1000 AC 01/24 PO 02/03 0959 1030 Prednisone 50 MG DAILY 01/23 1000 DC 01/23 PO 01/25 1002 0908 Rivaroxaban 15 MG DAILY 01/19 1000 AC 01/24 PO 1030 Vital Signs & I&O Last 24 Hrs of Vitals and I&O: Vital Signs Date Time Temp Pulse Resp B/P B/P Pulse O2 O2 Flow FiO2 Mean Ox Delivery Rate 01/24 1030 78 142/68 01/24 1029 78 142/68 01/24 0836 96 Nasal 1.0L Cannula 01/24 0543 97.4 80 20 148/82 97 Nasal 1.0L Cannula 01/24 0000 Nasal 1.0L Cannula 01/23 2200 98.0 84 20 130/72 94 Nasal 1.0L Cannula 01/23 2112 84 130/72 01/23 1600 94 Nasal 1.0L Cannula 01/23 1556 96 Nasal 1.0L Cannula 01/23 1412 98.1 92 18 138/70 94 Nasal 1.0L Cannula Intake & Output 01/24 1600 01/24 0800 01/24 0000 Intake Total 120 1010 Output Total 1050 400 Balance -930 610 Intake, Blood 350 Product Intake, IV 60 Intake, Oral 120 600 Output, Urine 1050 400 Patient 177 lb 176 lb Weight Exam Other Physical Findings: Generally - Awake, alert and comfortable without distress Head and neck - normocephalic, atraumatic, EOMI grossly intact Cardiovascular - S1, S2 Lungs -rare rhonchi Abdomen - Bowel sounds positive, soft, non-tender Extremities - without edema Results Last 24 Hrs of Lab Results: Laboratory Tests 01/24/18 0736: Anion Gap 10, Estimated GFR > 60, BUN/Creatinine Ratio 47.1 H, CBC w Diff NO MAN DIFF REQ, RBC 3.56 L, MCV 78.8 L, MCH 25.6 L, MCHC 32.5 L, RDW 18.9 H, MPV 7.9, Gran % 76.0 H, Lymphocytes % 15.9 L, Monocytes % 7.9, Eosinophils % 0.1, Basophils % 0.1, Absolute Granulocytes 7.8 H, Absolute Lymphocytes 1.6, Absolute Monocytes 0.8 H, Absolute Eosinophils 0, Absolute Basophils 0 Impression/Plan Impression/Plan Impression/Plan: Impression 87-year-old woman here with streptococcal pneumonia with scattered groundglass opacities bilaterally. Causing mild exacerbation of COPD. Plan -cont abx -PT -trc/nebs -check ambulatory sats DVT prophylaxis at all times DC planning
[2018-01-24 14:33] VITALS: BP 118/58
[2018-01-24 22:00] VITALS: BP 120/60
[2018-01-25 05:54] VITALS: BP 140/68
--- NOTE | 2018-01-25 09:59 | PN- Housestaff ---
See Addendum Subjective Follow-up For: Strep PNA Subjective: No overnight events. Breathing improved, off O2, wants to be discharged toorrow. Review of Systems Constitutional: Reports: no symptoms. EENTM: Reports: no symptoms. Cardiovascular: Reports: no symptoms. Respiratory: Reports: see HPI. Gastrointestinal: Reports: no symptoms. Genitourinary: Reports: no symptoms. Musculoskeletal: Reports: no symptoms. Skin: Reports: no symptoms. Neurological/Psychological: Reports: no symptoms. Hematologic/Endocrine: Reports: no symptoms. Immunologic/Allergic: Reports: no symptoms. Objective Last 24 Hrs of Vital Signs/I&O Vital Signs Date Time Temp Pulse Resp B/P B/P Pulse O2 O2 Flow FiO2 Mean Ox Delivery Rate 01/25 1008 90 138/62 01/25 1008 90 138/62 01/25 0821 97 Nasal 1.0L Cannula 01/25 0554 97.8 77 20 140/68 97 Nasal 2.0L Cannula 01/25 0000 Nasal 1.0L Cannula 01/24 2200 98.1 83 20 120/60 97 Nasal 1.5L Cannula 01/24 2115 83 120/60 01/24 2038 94 Nasal 1.0L Cannula 01/24 1600 94 Nasal 1.0L Cannula 01/24 1433 98.0 89 20 118/58 94 Nasal Cannula Intake & Output 01/25 1600 01/25 0800 01/25 0000 Intake Total 240 610 Output Total 300 400 Balance -60 210 Intake, IV 10 Intake, Oral 240 600 Output, Urine 300 400 Patient 81.391 kg Weight Physical Exam General Appearance: Alert, Oriented X3, Cooperative, No Acute Distress Cardiovascular: Regular Rate, Normal S1, Normal S2 Lungs: mild wheezing Abdomen: Normal Bowel Sounds, Soft, No Tenderness Current Medications: Current Medications Sig/Heena Start time Last Medication Dose Route Stop Time Status Admin Acetaminophen 650 MG Q6P PRN 01/19 0845 AC 01/21 PO 0610 Acetaminophen 1,000 MG Q6P PRN 01/19 0845 AC IV Albuterol Sulfate 3 ML EVERY 4 HRS/AWAKE 01/19 1200 AC 01/25 INH 0820 Albuterol Sulfate 2 PUF Q4-6 PRN PRN 01/19 0845 AC INH Aspirin Buffered 81 MG DAILY 01/19 1000 AC 01/25 PO 1008 Atorvastatin Calcium 20 MG QPM 01/19 2200 AC 01/24 PO 2115 Budesonide/ 2 PUF BID 01/19 1000 AC 01/25 Formoterol Fumarate INH 1007 Ceftriaxone Sodium 1,000 MG DAILY 01/20 1000 AC 01/25 IV 1007 Cholecalciferol 1,000 IU DAILY 01/19 1000 AC 01/25 PO 1008 Diltiazem HCl 120 MG DAILY 01/19 1000 AC 01/25 PO 1008 Fluticasone 2 SPRAY DAILY 01/19 1000 AC 01/25 Propionate MARCO 1007 Furosemide 40 MG BID 01/19 1000 AC 01/25 PO 1008 Guaifenesin 1,200 MG Q12 01/19 1000 AC 01/25 PO 1008 Losartan Potassium 50 MG BID 01/19 1000 AC 01/25 PO 1008 Magnesium Oxide 400 MG DAILY 01/19 1000 AC 01/25 PO 1008 Melatonin 5 MG AT BEDTIME 01/21 2200 AC 01/24 PO 2115 Metoprolol Succinate 25 MG DAILY 01/19 1000 AC 01/25 PO 1008 Omeprazole 40 MG DAILY AC 01/19 0839 AC 01/25 PO 0600 Ondansetron HCl 4 MG Q6P PRN 01/19 0845 AC 01/20 IV 0835 Oxycodone/ 2 TAB Q6P PRN 01/19 0845 AC 01/25 Acetaminophen PO 0354 Potassium Chloride 20 MEQ DAILY 01/19 1000 AC 01/25 PO 1008 Prednisone 50 MG DAILY 01/24 1000 AC 01/25 PO 02/03 0959 1008 Rivaroxaban 15 MG DAILY 01/19 1000 AC 01/25 PO 1008 Assessment/Plan Assessment: 87-year-old female with PMH significant for A.fib on anticoagulation, chronic diastolic CHF on Lasix, HTN, HLD, COPD not on home oxygen, NSCLC and carcinoid tumor, with B/L lobectomies and s/p radiation for a lingular nodule, and radiation pneumonitis, multinodular thyroid gland, GERD, osteoarthritis, left lower extremity open wound presented to the hospital for evaluation of acute shortness of breath. Admitted to [facility] as gen med hold for Strep pneumonia, transferred to general medicine floor. Problem list 1. Community accquired Step pneumonia 2. Atrial fibrillation 3. Chronic diastolic heart failure 4. Hypertension 5. Hyperlipidemia 6. COPD 7. GERD 8. Chronic left lower extremity wound Community acquired Strep pneumonia Urine strep test positive and continued on IV ceftriaxone day 6 today; consider switcihg to johnathan antibiotics. Try to taper oxygen down and get ambulatory saturations Discharge planning-If O2 successfully tapered off; can discharge pt on PO keflex for a total of 10 days of antibiotics. Chronic left lower extremity wound She has wound that is healing well with granulation tissue and she was following up at the wound care center and undergoing regular dressing changes with home health services. Wound care consult palced with Dr. Mckeon. Daily dressings #Atrial fibrillation continue aspirin, Cardizem 120 mg daily, and xaralto 15 daily #Chronic diastolic heart failure continue home medication Lasix 40 twice daily #Hypertension continue home medication losartan 50 twice daily, metoprolol succinate 25 daily #Hyperlipidemia continue atorvastatin 20 daily #COPD, not on home oxygen continue inhaler treatments, Mucinex #GERD continue omeprazole DVT prophylaxis On xarelto Code status Full code Problem List: 1. Pneumonia Pain Ratin Pain Location: no Pain Goal: Remain pain free Pain Plan: see a/p Tomorrow's Labs & Rationales: no
--- NOTE | 2018-01-25 11:14 | PN- Cardiology ---
Subjective Subjective: Feeling well. Shortness of breath improved. No chest pain. No palpitations. No diaphoresis. Objective Vital Signs and I&Os Vital Signs Date Time Temp Pulse Resp B/P B/P Pulse O2 O2 Flow FiO2 Mean Ox Delivery Rate 01/25 1008 90 138/62 01/25 1008 90 138/62 01/25 0821 97 Nasal 1.0L Cannula 01/25 0554 97.8 77 20 140/68 97 Nasal 2.0L Cannula 01/25 0000 Nasal 1.0L Cannula 01/24 2200 98.1 83 20 120/60 97 Nasal 1.5L Cannula 01/24 2115 83 120/60 01/24 2038 94 Nasal 1.0L Cannula 01/24 1600 94 Nasal 1.0L Cannula 01/24 1433 98.0 89 20 118/58 94 Nasal Cannula Intake & Output 01/25 1600 01/25 0800 01/25 0000 01/24 1600 01/24 0800 01/24 0000 Intake Total 240 610 896 220 6137 Output Total 300 828 698 3677 400 Balance -60 210 70 -930 610 Intake, Blood 350 Product Intake, IV 10 60 Intake, Oral 240 600 720 120 600 Number 1 Bowel Movements Output, Urine 300 605 032 8002 400 Patient 179 lb 177 lb 176 lb Weight Physical Exam: Gen: NAD HEENT: normal Lungs: clear to auscultation, normal resp. effort Heart: RRR, S1, S2, no murmurs Abdomen: Soft, nontender, no masses Extremities: No clubbing, cyanosis, or edema. Neuro: Alert and oriented x 3, cranial nerves intact Current Medications: Current Medications Sig/Heena Start time Last Medication Dose Route Stop Time Status Admin Acetaminophen 650 MG Q6P PRN 01/19 0845 AC 01/21 PO 0610 Acetaminophen 1,000 MG Q6P PRN 01/19 0845 AC IV Albuterol Sulfate 3 ML EVERY 4 HRS/AWAKE 01/19 1200 AC 01/25 INH 0820 Albuterol Sulfate 2 PUF Q4-6 PRN PRN 01/19 0845 AC INH Aspirin Buffered 81 MG DAILY 01/19 1000 AC 01/25 PO 1008 Atorvastatin Calcium 20 MG QPM 01/19 2200 AC 01/24 PO 2115 Budesonide/ 2 PUF BID 01/19 1000 AC 01/25 Formoterol Fumarate INH 1007 Ceftriaxone Sodium 1,000 MG DAILY 01/20 1000 AC 01/25 IV 1007 Cholecalciferol 1,000 IU DAILY 01/19 1000 AC 01/25 PO 1008 Diltiazem HCl 120 MG DAILY 01/19 1000 AC 01/25 PO 1008 Fluticasone 2 SPRAY DAILY 01/19 1000 AC 01/25 Propionate MARCO 1007 Furosemide 40 MG BID 01/19 1000 AC 01/25 PO 1008 Guaifenesin 1,200 MG Q12 01/19 1000 AC 01/25 PO 1008 Losartan Potassium 50 MG BID 01/19 1000 AC 01/25 PO 1008 Magnesium Oxide 400 MG DAILY 01/19 1000 AC 01/25 PO 1008 Melatonin 5 MG AT BEDTIME 01/21 2200 AC 01/24 PO 2115 Metoprolol Succinate 25 MG DAILY 01/19 1000 AC 01/25 PO 1008 Omeprazole 40 MG DAILY AC 01/19 0839 AC 01/25 PO 0600 Ondansetron HCl 4 MG Q6P PRN 01/19 0845 AC 01/20 IV 0835 Oxycodone/ 2 TAB Q6P PRN 01/19 0845 AC 01/25 Acetaminophen PO 0354 Potassium Chloride 20 MEQ DAILY 01/19 1000 AC 01/25 PO 1008 Prednisone 50 MG DAILY 01/24 1000 AC 01/25 PO 02/03 0959 1008 Rivaroxaban 15 MG DAILY 01/19 1000 AC 01/25 PO 1008 Results Last 48 Hrs of Labs/Mics: Laboratory Tests 01/24/18 0736: Anion Gap 10, Estimated GFR > 60, BUN/Creatinine Ratio 47.1 H, CBC w Diff NO MAN DIFF REQ, RBC 3.56 L, MCV 78.8 L, MCH 25.6 L, MCHC 32.5 L, RDW 18.9 H, MPV 7.9, Gran % 76.0 H, Lymphocytes % 15.9 L, Monocytes % 7.9, Eosinophils % 0.1, Basophils % 0.1, Absolute Granulocytes 7.8 H, Absolute Lymphocytes 1.6, Absolute Monocytes 0.8 H, Absolute Eosinophils 0, Absolute Basophils 0 Recent Imaging Studies: Chest x-ray: Low lung volumes and diffuse pulmonary opacities again noted, unchanged from prior exam. Findings are consistent with diffuse pneumonitis as clinically suspected. Assessment/Plan Assessment/Plan Assessment: 1. CAD 2. Atrial fibrillation 3. Hypertension 4. Pneumonia and COPD Plan: * Continue current cardiac medications * Follow up with Dr. Stearns in the office after discharge Continue telemetry? Not applicable
--- NOTE | 2018-01-25 14:39 | PN- Pulmonary ---
Subjective HPI/Critical Care Issues: Patient seen and examined. She is saturating now well on room air. She isn't spitting discharge within the next 24 hours. Objective Current Medications: Current Medications Sig/Heena Start time Last Medication Dose Route Stop Time Status Admin Acetaminophen 650 MG Q6P PRN 01/19 0845 AC 01/21 PO 0610 Acetaminophen 1,000 MG Q6P PRN 01/19 0845 AC IV Albuterol Sulfate 3 ML EVERY 4 HRS/AWAKE 01/19 1200 AC 01/25 INH 1249 Albuterol Sulfate 2 PUF Q4-6 PRN PRN 01/19 0845 AC INH Aspirin Buffered 81 MG DAILY 01/19 1000 AC 01/25 PO 1008 Atorvastatin Calcium 20 MG QPM 01/19 2200 AC 01/24 PO 2115 Budesonide/ 2 PUF BID 01/19 1000 AC 01/25 Formoterol Fumarate INH 1007 Ceftriaxone Sodium 1,000 MG DAILY 01/20 1000 AC 01/25 IV 1007 Cholecalciferol 1,000 IU DAILY 01/19 1000 AC 01/25 PO 1008 Diltiazem HCl 120 MG DAILY 01/19 1000 AC 01/25 PO 1008 Fluticasone 2 SPRAY DAILY 01/19 1000 AC 01/25 Propionate MARCO 1007 Furosemide 40 MG BID 01/19 1000 AC 01/25 PO 1008 Guaifenesin 1,200 MG Q12 01/19 1000 AC 01/25 PO 1008 Losartan Potassium 50 MG BID 01/19 1000 AC 01/25 PO 1008 Magnesium Oxide 400 MG DAILY 01/19 1000 AC 01/25 PO 1008 Melatonin 5 MG AT BEDTIME 01/21 2200 AC 01/24 PO 2115 Metoprolol Succinate 25 MG DAILY 01/19 1000 AC 01/25 PO 1008 Omeprazole 40 MG DAILY AC 01/19 0839 AC 01/25 PO 0600 Ondansetron HCl 4 MG Q6P PRN 01/19 0845 AC 01/20 IV 0835 Oxycodone/ 2 TAB Q6P PRN 01/19 0845 AC 01/25 Acetaminophen PO 0354 Potassium Chloride 20 MEQ DAILY 01/19 1000 AC 01/25 PO 1008 Prednisone 50 MG DAILY 01/24 1000 AC 01/25 PO 02/03 0959 1008 Rivaroxaban 15 MG DAILY 01/19 1000 AC 01/25 PO 1008 Vital Signs & I&O Last 24 Hrs of Vitals and I&O: Vital Signs Date Time Temp Pulse Resp B/P B/P Pulse O2 O2 Flow FiO2 Mean Ox Delivery Rate 01/25 1008 90 138/62 01/25 1008 90 138/62 01/25 0821 97 Nasal 1.0L Cannula 01/25 0554 97.8 77 20 140/68 97 Nasal 2.0L Cannula 01/25 0000 Nasal 1.0L Cannula 01/24 2200 98.1 83 20 120/60 97 Nasal 1.5L Cannula 01/24 2115 83 120/60 01/24 2038 94 Nasal 1.0L Cannula 01/24 1600 94 Nasal 1.0L Cannula Intake & Output 01/25 1600 01/25 0800 01/25 0000 Intake Total 240 610 Output Total 300 400 Balance -60 210 Intake, IV 10 Intake, Oral 240 600 Output, Urine 300 400 Patient 179 lb Weight Exam Other Physical Findings: Generally - Awake, alert and comfortable without distress Head and neck - normocephalic, atraumatic, EOMI grossly intact Cardiovascular - S1, S2 Lungs -rare rhonchi Abdomen - Bowel sounds positive, soft, non-tender Extremities - without edema Impression/Plan Impression/Plan Impression/Plan: Impression 87-year-old woman here with streptococcal pneumonia with scattered groundglass opacities bilaterally. Causing mild exacerbation of COPD. Plan -cont abx -PT -trc/nebs -check ambulatory sats DVT prophylaxis at all times DC planning
[2018-01-25 15:54] VITALS: BP 128/59
[2018-01-25 22:27] VITALS: BP 124/60
[2018-01-26 06:05] VITALS: BP 130/64
--- NOTE | 2018-01-26 07:55 | PN- Housestaff ---
Subjective Follow-up For: Strep pneumonia Subjective: Seen and examined. Reports feeling much better, able to walk without oxygen. Feels improved. Review of Systems Constitutional: Reports: see HPI. Comments: ROS negative except the above Objective Last 24 Hrs of Vital Signs/I&O Vital Signs Date Time Temp Pulse Resp B/P B/P Pulse O2 O2 Flow FiO2 Mean Ox Delivery Rate 01/26 0605 97.8 66 21 130/64 97 / 0000 Room Air 01/25 2227 97.5 81 22 124/60 99 / 2144 81 124/60 01/25 1615 98 Room Air Room Air 01/25 1600 98 Room Air 01/25 1554 97.8 77 18 128/59 96 Room Air 01/25 1008 90 138/62 01/25 1008 90 138/62 / 0821 97 Nasal 1.0L Cannula 01/25 0800 96 Room Air Intake & Output 01/26 0800 01/26 0000 /04 1600 Intake Total 240 730 750 Output Total 300 Balance 240 430 750 Intake, IV 10 30 Intake, Oral 240 720 720 Output, Urine 300 Patient 81.732 kg Weight Physical Exam General Appearance: Alert, Oriented X3, Cooperative Skin: No Rashes, No Breakdown HEENT: Atraumatic, PERRLA, EOMI Neck: Supple Cardiovascular: Normal S1, Normal S2 Lungs: Normal Air Movement, mild rhonchi at bases Abdomen: Normal Bowel Sounds, Soft, No Tenderness Neurological: Normal Gait, Normal Speech, Normal Tone, Sensation Intact Extremities: No Clubbing, No Cyanosis Assessment/Plan Assessment: 87-year-old female with PMH significant for A.fib on anticoagulation, chronic diastolic CHF on Lasix, HTN, HLD, COPD not on home oxygen, NSCLC and carcinoid tumor, with B/L lobectomies and s/p radiation for a lingular nodule, and radiation pneumonitis, multinodular thyroid gland, GERD, osteoarthritis, left lower extremity open wound presented to the hospital for evaluation of acute shortness of breath. Admitted to [facility] as gen med hold for Strep pneumonia, transferred to general medicine floor. Problem list 1. Community accquired Step pneumonia 2. Atrial fibrillation 3. Chronic diastolic heart failure 4. Hypertension 5. Hyperlipidemia 6. COPD 7. GERD 8. Chronic left lower extremity wound Community acquired Strep pneumonia Urine strep test positive and continued on IV ceftriaxone day 9 of course. We will discontinue after tomorrow. Discharge planning-If O2 successfully tapered off; can discharge pt on PO keflex for a total of 10 days of antibiotics. Chronic left lower extremity wound She has wound that is healing well with granulation tissue and she was following up at the wound care center and undergoing regular dressing changes with home health services. Wound care consult palced with Dr. Mckeon. Daily dressings Atrial fibrillation continue aspirin, Cardizem 120 mg daily, and xaralto 15 daily Chronic diastolic heart failure continue home medication Lasix 40 twice daily Hypertension continue home medication losartan 50 twice daily, metoprolol succinate 25 daily Hyperlipidemia continue atorvastatin 20 daily COPD, not on home oxygen continue inhaler treatments, Mucinex #GERD continue omeprazole DVT prophylaxis On xarelto Code status Full code Problem List: 1. Pneumonia 2. Dyspnea 3. COPD (chronic obstructive pulmonary disease) Pain Ratin Pain Location: n/a Pain Goal: Pain 4 or less Pain Plan: tylenol prn Tomorrow's Labs & Rationales: none
--- NOTE | 2018-01-26 08:22 | PN- Pulmonary ---
Subjective HPI/Critical Care Issues: Patient feels well comfortable on room air though nurses report exercise desaturation Objective Current Medications: Current Medications Sig/Heena Start time Last Medication Dose Route Stop Time Status Admin Acetaminophen 650 MG Q6P PRN 01/19 0845 AC 01/21 PO 0610 Acetaminophen 1,000 MG Q6P PRN 01/19 0845 AC IV Albuterol Sulfate 3 ML EVERY 4 HRS/AWAKE 01/19 1200 AC 01/26 INH 0753 Albuterol Sulfate 2 PUF Q4-6 PRN PRN 01/19 0845 AC INH Aspirin Buffered 81 MG DAILY 01/19 1000 AC 01/25 PO 1008 Atorvastatin Calcium 20 MG QPM 01/19 2200 AC 01/25 PO 2144 Budesonide/ 2 PUF BID 01/19 1000 AC 01/25 Formoterol Fumarate INH 2144 Ceftriaxone Sodium 1,000 MG DAILY 01/20 1000 AC 01/25 IV 1007 Cholecalciferol 1,000 IU DAILY 01/19 1000 AC 01/25 PO 1008 Diltiazem HCl 120 MG DAILY 01/19 1000 AC 01/25 PO 1008 Fluticasone 2 SPRAY DAILY 01/19 1000 AC 01/25 Propionate MARCO 1007 Furosemide 40 MG BID 01/19 1000 AC 01/25 PO 2144 Guaifenesin 1,200 MG Q12 01/19 1000 AC 01/25 PO 2143 Losartan Potassium 50 MG BID 01/19 1000 AC 01/25 PO 2144 Magnesium Oxide 400 MG DAILY 01/19 1000 AC 01/25 PO 1008 Melatonin 5 MG AT BEDTIME 01/21 2200 AC 01/25 PO 2144 Metoprolol Succinate 25 MG DAILY 01/19 1000 AC 01/25 PO 1008 Omeprazole 40 MG DAILY AC 01/19 0839 AC 01/26 PO 0522 Ondansetron HCl 4 MG Q6P PRN 01/19 0845 AC 01/20 IV 0835 Oxycodone/ 2 TAB Q6P PRN 01/19 0845 AC 01/26 Acetaminophen PO 0524 Potassium Chloride 20 MEQ DAILY 01/19 1000 AC 01/25 PO 1008 Prednisone 50 MG DAILY 01/24 1000 AC 01/25 PO 02/03 0959 1008 Rivaroxaban 15 MG DAILY 01/19 1000 AC 01/25 PO 1008 Vital Signs & I&O Last 24 Hrs of Vitals and I&O: Vital Signs Date Time Temp Pulse Resp B/P B/P Pulse O2 O2 Flow FiO2 Mean Ox Delivery Rate 01/26 0756 98 Room Air Room Air 01/26 0605 97.8 66 21 130/64 97 03/05 0000 Room Air 01/25 2227 97.5 81 22 124/60 99 03/ 2144 81 124/60 / 1615 98 Room Air Room Air 01/25 1600 98 Room Air 01/25 1554 97.8 77 18 128/59 96 Room Air 01/25 1008 90 138/62 01/25 1008 90 138/62 / 0821 97 Nasal 1.0L Cannula Intake & Output 01/26 1600 01/26 0800 / 0000 Intake Total 240 730 Output Total 300 Balance 240 430 Intake, IV 10 Intake, Oral 240 720 Output, Urine 300 Patient 180 lb Weight Oxygen saturation room air 98% exam for chest shows clear lung martinez are no wheezes cardiac exam shows a regular S1 and S2 without murmurs Impression/Plan Impression/Plan Impression/Plan: 87-year-old with chronic obstructive lung disease admitted with pneumococcal pneumonia and hypoxic respiratory failure is clinically improved. Left lower extremity traumatic ulcer is improving as well. Recommendations: Measure oxygen saturations with ambulation. Complete course of antibiotics. Follow-up appointment this week in the wound center. Patient will need follow- up chest x-ray in several weeks
--- NOTE | 2018-01-26 10:07 | PN- Att Addend ---
Attending Addendum Attending Brief Note Patient is feeling and looking much better patient was admitted with pneumococcal pneumonia, hypoxic respiratory failure and her leg ulcer, oral improving or at address the patient is very comfortable the only problem was noted was some oxygen desaturation with exertion. Will reevaluate her O2 saturations today with exertion if they are stable then we'll start disposition plans. Appreciate Dr. Ortiz's input and recommendations Intake & Output 01/26 04001/25 04001/24 1600 01/24 0400 Intake Total 240 730 990 683 112 0955 Output Total 300 072 612 6408 1050 Balance 240 430 690 210 -210 -40 Intake, Blood 350 Product Intake, IV 10 30 10 60 Intake, Oral 240 720 960 600 840 600 Number 1 Bowel Movements Output, Urine 300 078 254 9253 1050 Patient 180 lb 179 lb 177 lb 176 lb Weight Current Medications Sig/Heena Start time Last Medication Dose Route Stop Time Status Admin Acetaminophen 650 MG Q6P PRN 01/19 0845 AC 01/21 PO 0610 Acetaminophen 1,000 MG Q6P PRN 01/19 0845 AC IV Albuterol Sulfate 3 ML EVERY 4 HRS/AWAKE 01/19 1200 AC 01/26 INH 0753 Albuterol Sulfate 2 PUF Q4-6 PRN PRN 01/19 0845 AC INH Aspirin Buffered 81 MG DAILY 01/19 1000 AC 01/26 PO 0952 Atorvastatin Calcium 20 MG QPM 01/19 2200 AC 01/25 PO 2144 Budesonide/ 2 PUF BID 01/19 1000 AC 01/26 Formoterol Fumarate INH 0951 Ceftriaxone Sodium 1,000 MG DAILY 01/20 1000 AC 01/26 IV 0952 Cholecalciferol 1,000 IU DAILY 01/19 1000 AC 01/26 PO 0952 Diltiazem HCl 120 MG DAILY 01/19 1000 AC 01/26 PO 0952 Fluticasone 2 SPRAY DAILY 01/19 1000 AC 01/26 Propionate MARCO 0950 Furosemide 40 MG BID 01/19 1000 AC 01/26 PO 0952 Guaifenesin 1,200 MG Q12 01/19 1000 AC 01/26 PO 0952 Losartan Potassium 50 MG BID 01/19 1000 AC 01/26 PO 0952 Magnesium Oxide 400 MG DAILY 01/19 1000 AC 01/26 PO 0952 Melatonin 5 MG AT BEDTIME 01/21 2200 AC 01/25 PO 2144 Metoprolol Succinate 25 MG DAILY 01/19 1000 AC 01/26 PO 0952 Omeprazole 40 MG DAILY AC 01/19 0839 AC 01/26 PO 0522 Ondansetron HCl 4 MG Q6P PRN 01/19 0845 AC 01/20 IV 0835 Oxycodone/ 2 TAB Q6P PRN 01/19 0845 AC 01/26 Acetaminophen PO 0524 Potassium Chloride 20 MEQ DAILY 01/19 1000 AC 01/26 PO 0952 Prednisone 40 MG DAILY 01/24 1000 AC 01/26 PO 02/03 0959 0952 Rivaroxaban 15 MG DAILY 01/19 1000 AC 01/26 PO 0951 Laboratory Tests 01/24/18 0736: Anion Gap 10, Estimated GFR > 60, BUN/Creatinine Ratio 47.1 H, CBC w Diff NO MAN DIFF REQ, RBC 3.56 L, MCV 78.8 L, MCH 25.6 L, MCHC 32.5 L, RDW 18.9 H, MPV 7.9, Gran % 76.0 H, Lymphocytes % 15.9 L, Monocytes % 7.9, Eosinophils % 0.1, Basophils % 0.1, Absolute Granulocytes 7.8 H, Absolute Lymphocytes 1.6, Absolute Monocytes 0.8 H, Absolute Eosinophils 0, Absolute Basophils 0 Vital Signs Date Time Temp Pulse Resp B/P B/P Pulse O2 O2 Flow FiO2 Mean Ox Delivery Rate 01/26 0952 80 146/68 / 0952 80 146/68 / 0756 98 Room Air Room Air 01/26 0605 97.8 66 21 130/64 97 /05 0000 Room Air 01/25 2227 97.5 81 22 124/60 99 03/04 2144 81 124/60 03/04 1615 98 Room Air Room Air 03/04 1600 98 Room Air 03/04 1554 97.8 77 18 128/59 96 Room Air 03/04 1008 90 138/62 03/04 1008 90 138/62
[2018-01-26 14:42] VITALS: BP 120/60
--- NOTE | 2018-01-26 17:24 | Discharge Summary ---
Visit Information Visit Dates Admission Date: 01/20/18 Discharge Date: 01/27/18 Hospital Course Course Attending Physician: Antonio Lopez MD Primary Care Physician: Antonio Lopez MD Consulting Request: 1 Consulting Specialty: Cardiology Consulting Physician: Reason for Consult: Hb goal with heart failure Consulting Request: 2 Consulting Specialty: Pulmonary Disease Consulting Physician: Reason for Consult: Strep pnemonia and COPD Hospital Course: 87-year-old female with PMH significant for A.fib on anticoagulation, chronic diastolic CHF on Lasix, HTN, HLD, COPD not on home oxygen, NSCLC and carcinoid tumor, with B/L lobectomies and s/p radiation for a lingular nodule, and radiation pneumonitis, multinodular thyroid gland, GERD, osteoarthritis, left lower extremity open wound presented to the hospital for evaluation of acute shortness of breath. Admitted to [facility] as gen med hold for Strep pneumonia then transferred to general medicine floor Problem list 1. Community accquired Step pneumonia 2. Atrial fibrillation 3. Chronic diastolic heart failure 4. Hypertension 5. Hyperlipidemia 6. COPD 7. GERD 8. Chronic left lower extremity wound Acute hypoxic respiratory failure due to Community acquired Strep pneumonia Urine strep test positive and continued on IV ceftriaxone day for 9 days and transitioned to oral keflex at discharge for a total course of 10days. She had a prolonged hospital course due to hemoptysis resulting in drop in H&H. It is also difficult to wean off oxygen and she is not on home oxygen prior to admission. She was off oxygen by the time of discharge. Acute drop in H&H Patient was admitted with H&H 8.3/ --> 7.1/. she did have hemoptysis briefly. she had a history of diastolic failure with good EF. Transfused one unit after obtaining cardio recommendations. H&H improved to 08/21. Chronic left lower extremity wound She has wound that is healing well with granulation tissue and she was following up at the wound care center and undergoing regular dressing changes with home health services. Wound care consult palced with Dr. Mckeon. Underwent daily dressing. Atrial fibrillation continued aspirin, Cardizem 120 mg daily, and xaralto 15 daily Chronic diastolic heart failure continued home medication Lasix 40 twice daily Hypertension continued home medication losartan 50 twice daily, metoprolol succinate 25 daily Hyperlipidemia continued atorvastatin 20 daily COPD, not on home oxygen continued inhaler treatments, Mucinex #GERD continued omeprazole DVT prophylaxis On xarelto Code status Full code Complications: none Allergies: Coded Allergies: adhesive tape (RASH ON SKIN THAT IT TOUCHES 10/22/17) iodine (DAVIS SKIN WHERE APPLIED 10/22/17) povidone-iodine (DAVIS SKIN WHERE IT IS APPLIED 10/22/17) shellfish derived (HIVES ALL OVER 10/22/17) propoxyphene (GI UPSET 10/22/17) Significant Procedures: Lung VQ scan on 01/19/18 IMPRESSION: Low probability of pulmonary embolism. Increasing ventilation and perfusion abnormalities posteromedially in the right lower lobe are well matched and probably due to increasing right pleural effusion, possibly superimposed on atelectasis or pneumonitis. Nonsegmental perfusion abnormalities in the left lower lobe are unchanged from the prior study and likely related to pleural effusion and/or atelectasis or pneumonitis. CXR on 01/19/18 IMPRESSION: Small bilateral pleural effusions with airspace opacity which could represent atelectasis or pneumonia. Diffuse bronchial wall thickening may be associated with a small airways process or fluid overload. CT chest IMPRESSION: 1. Diffuse heterogeneous attenuation of the lungs, with a mixture of ground-glass and interstitial opacities, (crazy paving pattern), overall improved as compared to previous. Findings are nonspecific, with a broad differential, including infectious or bacterial viral pneumonia, pulmonary hemorrhage syndrome, alveolar proteinosis. 2. Component of patchy airspace opacities, as well as peribronchial opacity/thickening in the left perihilar region extending to the left lower lung zones. This could reflect a component of acute infectious process superimposed on chronic changes. Follow-up imaging is recommended. 3. Cardiomegaly. 4. Small right greater than left pleural effusion Echocardiogram CONCLUSIONS Small left ventricular cavity. Mild concentric left ventricular hypertrophy. Hyperdynamic left ventricular systolic function. Normal left ventricular ejection fraction estimated at 65-70%. Normal right ventricular size and function. Moderate to severe atrial dilatation. Mild to moderate mitral stenosis. Mild mitral regurgitation. Mild aortic stenosis. [id number] aortic regurgitation. Moderate to severe tricuspid regurgitation. Severe pulmonary hypertension. Trace to mild pulmonic regurgitation. Mildly dilated proximal ascending aorta (tube). 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 Medications at Discharge Discharge Medications: Continue taking these medications: Fluticasone Propionate (Fluticasone Propionate) 50 MCG/ACTUATION SPRAY.SUSP 2 [place] Both sides of nose DAILY Comments: LAST GIVEN 01/27/18 @ 0832 Metoprolol Succinate (Metoprolol Succinate) 25 MG TAB 1 Tablet ORAL DAILY Comments: LAST GIVEN 01/27/18 @ 0832 Losartan Potassium (Losartan Potassium) 100 MG TABLET 0.5 Tablet ORAL TWICE DAILY Comments: LAST GIVEN 01/27/18 2 0832 Atorvastatin Calcium (Lipitor) 20 MG TABLET 1 Tablet ORAL Every night Comments: LAST GIVEN 01/26/18 @ 2216 Furosemide (Furosemide) 40 MG TABLET 1 Tablet ORAL TWICE DAILY Comments: LAST GIVEN 01/27/18 @ 0832 Albuterol Sulfate (Albuterol Sulfate) 2.5 MG/3 ML (0.083 %) VIAL.NEB 1 Vial Inhale Solution THREE TIMES DAILY Comments: Last Taken: 01/09/18 Time: 830 AM Magnesium Oxide (Magnesium Oxide) 400 MG TABLET 1 Tablet ORAL DAILY Comments: LAST GIVEN 01/27/18 @ 0832 Guaifenesin (Mucinex) 1,200 MG TAB.ER.12H 1 Tablet ORAL TWICE DAILY Comments: LAST GIVEN 01/27/18 @ 0832 Ferney-3 Acid Ethyl Esters (Lovaza) 1 GRAM CAPSULE 1 Capsule ORAL TWICE DAILY Comments: Last Taken:09/05/17 Time:10AM Aspirin (Ecotrin*) 81 MG TABLET.DR 1 Tablet ORAL DAILY Comments: LAST GIVEN 01/27/18/ @ 0834 Potassium Chloride (Potassium Chloride) 20 MEQ TAB.ER.PRT 1 Tablet ORAL DAILY Comments: LAST GIVNE 01/27/18 @ 0832 Albuterol Sulfate (Ventolin Hfa) 90 MCG HFA.AER.AD 2 Puff Inhale through mouth EVERY 4-6 HOURS NEEDED as needed for SHORTNESS OF BREATH Qty = 1 Comments: LAST GIVEN 01/27/18 @ 1143 Budesonide/Formoterol Fumarate (Symbicort 160-4.5 Mcg Inhaler) 160 MCG-4.5 MCG/ ACTUATION HFA.AER.AD 2 Puff Inhale through mouth TWICE DAILY Qty = 306 Comments: NOT GIVEN Diltiazem HCl (Diltiazem 24HR Cd) 120 MG CAP.ER.24H 1 Capsule ORAL DAILY Comments: LAST GIVEN 01/27/18 @ 0832 Cholecalciferol (Vitamin D3) (Vitamin D3) 1,000 UNIT CAPSULE 1 Capsule ORAL DAILY Comments: LAST GIVEN 01/27/18 @ 0832 Esomeprazole Magnesium (Nexium) 20 MG CAPSULE.DR 1 Capsule ORAL DAILY Rivaroxaban (Xarelto) 15 MG TABLET 1 Tablet ORAL DAILY Qty = 30 Instructions: . Comments: LAST GIVEN 01/27/18 @ 0832 Oxycodone HCl/Acetaminophen (Oxycodone-Acetaminophen 10-325) 10 MG-325 MG TABLET 1 Tablet ORAL Q6H as needed for PAIN Qty = 30 Start taking the following new medications: Cephalexin (Keflex) 250 MG CAPSULE 1 Capsule ORAL 4 TIMES A DAY Qty = 4 No Refills Instructions: . Prednisone (Prednisone) 10 MG TABLET 1 Tablet ORAL SEE INSTRUCTIONS Qty = 10 No Refills Instructions: 01/28/18 to 01/29/18 - take 4 tabs daily 01/30/18 to 01/31/18 - take 3 tabs daily 02/01/18 to 02/02/18 - take 2 tabs daily 02/03/18 to 02/04/18 - take 1 tab daily. Copies To: Antonio Lopez MD Attending Review Statement Documenting Attending: Antonio Lopez MD
[2018-01-26 21:58] VITALS: BP 110/60
--- NOTE | 2018-01-27 07:20 | PN- Housestaff ---
Subjective Follow-up For: step pneumonia Subjective: Feels much better today. Able to walk around on RA. No chest pain, cough overnight. Review of Systems Constitutional: Reports: see HPI. Comments: ROS negative except the above Objective Last 24 Hrs of Vital Signs/I&O Vital Signs Date Time Temp Pulse Resp B/P B/P Pulse O2 O2 Flow FiO2 Mean Ox Delivery Rate 01/27 0000 Room Air 01/26 2216 110/60 03 2158 98.6 94 20 110/60 97 Room Air 03 1627 97 Room Air 01/26 1442 97.6 97 20 120/60 96 Room Air 01/26 0952 80 146/68 03 0952 80 146/68 01/26 0800 97 / 0756 98 Room Air Room Air Intake & Output 01/27 0800 01/27 0000 01/26 1600 Intake Total 750 Output Total 500 Balance 250 Intake, IV 30 Intake, Oral 720 Number 1 Bowel Movements Output, Urine 500 Physical Exam General Appearance: Alert, Oriented X3, Cooperative Skin: No Rashes, No Breakdown HEENT: Atraumatic, PERRLA Neck: Supple Cardiovascular: Normal S1, Normal S2 Lungs: Clear to Auscultation, Normal Air Movement Abdomen: Normal Bowel Sounds, Soft, No Tenderness Neurological: Normal Speech, Strength at 5/5 X4 Ext, Sensation Intact, Cranial Nerves 3-12 NL Extremities: No Clubbing, No Cyanosis, 1-2+ EDEMA PRESENT Vascular: Normal Pulses, Pulses Symmetrical Current Medications: Current Medications Sig/Heena Start time Last Medication Dose Route Stop Time Status Admin Acetaminophen 650 MG Q6P PRN 01/19 0845 AC 01/21 PO 0610 Acetaminophen 1,000 MG Q6P PRN 01/19 0845 AC IV Albuterol Sulfate 3 ML EVERY 4 HRS/AWAKE 01/19 1200 AC 01/27 INH 0819 Albuterol Sulfate 2 PUF Q4-6 PRN PRN 01/19 0845 AC INH Aspirin Buffered 81 MG DAILY 01/19 1000 AC 01/27 PO 0834 Atorvastatin Calcium 20 MG QPM 01/19 2200 AC 01/26 PO 2216 Budesonide/ 2 PUF BID 01/19 1000 AC 01/27 Formoterol Fumarate INH 0835 Ceftriaxone Sodium 1,000 MG DAILY 01/20 1000 AC 01/27 IV 0831 Cholecalciferol 1,000 IU DAILY 01/19 1000 AC 01/27 PO 0835 Diltiazem HCl 120 MG DAILY 01/19 1000 AC 01/27 PO 0834 Fluticasone 2 SPRAY DAILY 01/19 1000 AC 01/27 Propionate MARCO 0831 Furosemide 40 MG BID 01/19 1000 AC 01/27 PO 0836 Guaifenesin 1,200 MG Q12 01/19 1000 AC 01/27 PO 0834 Losartan Potassium 50 MG BID 01/19 1000 AC 01/27 PO 0834 Magnesium Oxide 400 MG DAILY 01/19 1000 AC 01/27 PO 0834 Melatonin 5 MG AT BEDTIME 01/21 2200 AC 01/26 PO 2216 Metoprolol Succinate 25 MG DAILY 01/19 1000 AC 01/27 PO 0835 Omeprazole 40 MG DAILY AC 01/19 0839 AC 01/27 PO 0538 Ondansetron HCl 4 MG Q6P PRN 01/19 0845 AC 01/20 IV 0835 Oxycodone/ 2 TAB Q6P PRN 01/19 0845 AC 01/27 Acetaminophen PO 0835 Potassium Chloride 20 MEQ DAILY 01/19 1000 AC 01/27 PO 0834 Prednisone 10 MG DAILY 02/01 1000 AC PO 02/03 0959 Prednisone 20 MG DAILY 01/30 1000 AC PO 02/01 0959 Prednisone 30 MG DAILY 01/28 1000 AC PO 01/30 0959 Prednisone 40 MG DAILY 01/27 1000 AC 01/27 PO 01/28 0959 0835 Prednisone 40 MG DAILY 01/24 1000 DC 01/26 PO 02/03 0959 0952 Rivaroxaban 15 MG DAILY 01/19 1000 AC 01/27 PO 0835 Assessment/Plan Assessment: 87-year-old female with PMH significant for A.fib on anticoagulation, chronic diastolic CHF on Lasix, HTN, HLD, COPD not on home oxygen, NSCLC and carcinoid tumor, with B/L lobectomies and s/p radiation for a lingular nodule, and radiation pneumonitis, multinodular thyroid gland, GERD, osteoarthritis, left lower extremity open wound presented to the hospital for evaluation of acute shortness of breath. Admitted to [facility] as gen med hold for Strep pneumonia, transferred to general medicine floor. Problem list 1. Community accquired Step pneumonia 2. Atrial fibrillation 3. Chronic diastolic heart failure 4. Hypertension 5. Hyperlipidemia 6. COPD 7. GERD 8. Chronic left lower extremity wound Community acquired Strep pneumonia Urine strep test positive and Received IV ceftriaxone for a total of 9 days, we will continue for one more day by oral. Stable for discharge today. Chronic left lower extremity wound She has wound that is healing well with granulation tissue and she was following up at the wound care center and undergoing regular dressing changes with home health services. Wound care consult palced with Dr. Mckeon. Daily dressings Low H&H Improved after 1 unit of transfusion Atrial fibrillation continue aspirin, Cardizem 120 mg daily, and xaralto 15 daily Chronic diastolic heart failure continue home medication Lasix 40 twice daily Hypertension continue home medication losartan 50 twice daily, metoprolol succinate 25 daily Hyperlipidemia continue atorvastatin 20 daily COPD, not on home oxygen continue inhaler treatments, Mucinex #GERD continue omeprazole DVT prophylaxis On xarelto Code status Full code Problem List: 1. Bleeding from wound 2. Leukocytosis 3. Pneumonia 4. CHF (congestive heart failure) 5. COPD (chronic obstructive pulmonary disease) Pain Ratin Pain Location: n/a Pain Goal: Pain 4 or less Pain Plan: tylenol Tomorrow's Labs & Rationales: none
[2018-01-27 07:35] VITALS: BP 114/64
[2018-01-27 08:35] VITALS: BP 152/62
[2018-01-27] MEDS ORDERED: KEFLEX250 M1 PO ×2 (09:46→10:15)
[2018-01-27] MEDS ORDERED: PREDNISONE10 M2 PO ×2 (09:46→10:15)
--- NOTE | 2018-01-27 10:20 | PN- Att Addend ---
Attending Addendum Attending Brief Note Patient doing better. at the bedside , ambulated okay with no desaturation of her oxygen. Vital signs are stable no fever no new changes on physical will have her wound checked before discharge. After that she can go home to follow with the CHF clinic follow with the wound clinic with pulmonary cardiology and myself see the CMR, Intake & Output 01/27 1600 01/27 0400 01/26 1600 01/26 0400 01/25 1600 01/25 0400 Intake Total 990 730 990 610 Output Total 500 300 300 400 Balance 490 430 690 210 Intake, IV 30 10 30 10 Intake, Oral 960 720 960 600 Number 1 Bowel Movements Output, Urine 500 300 300 400 Patient 178 lb 180 lb 179 lb Weight Current Medications Sig/Heena Start time Last Medication Dose Route Stop Time Status Admin Acetaminophen 650 MG Q6P PRN 01/19 0845 AC 01/21 PO 0610 Acetaminophen 1,000 MG Q6P PRN 01/19 0845 AC IV Albuterol Sulfate 3 ML EVERY 4 HRS/AWAKE 01/19 1200 AC 01/27 INH 0819 Albuterol Sulfate 2 PUF Q4-6 PRN PRN 01/19 0845 AC INH Aspirin Buffered 81 MG DAILY 01/19 1000 AC 01/27 PO 0834 Atorvastatin Calcium 20 MG QPM 01/19 2200 AC 01/26 PO 2216 Budesonide/ 2 PUF BID 01/19 1000 AC 01/27 Formoterol Fumarate INH 0835 Ceftriaxone Sodium 1,000 MG DAILY 01/20 1000 AC 01/27 IV 0831 Cholecalciferol 1,000 IU DAILY 01/19 1000 AC 01/27 PO 0835 Diltiazem HCl 120 MG DAILY 01/19 1000 AC 01/27 PO 0834 Fluticasone 2 SPRAY DAILY 01/19 1000 AC 01/27 Propionate MARCO 0831 Furosemide 40 MG BID 01/19 1000 AC 01/27 PO 0836 Guaifenesin 1,200 MG Q12 01/19 1000 AC 01/27 PO 0834 Losartan Potassium 50 MG BID 01/19 1000 AC 01/27 PO 0834 Magnesium Oxide 400 MG DAILY 01/19 1000 AC 01/27 PO 0834 Melatonin 5 MG AT BEDTIME 01/21 2200 AC 01/26 PO 2216 Metoprolol Succinate 25 MG DAILY 01/19 1000 AC 01/27 PO 0835 Omeprazole 40 MG DAILY AC 01/19 0839 AC 01/27 PO 0538 Ondansetron HCl 4 MG Q6P PRN 01/19 0845 AC 01/20 IV 0835 Oxycodone/ 2 TAB Q6P PRN 01/19 0845 AC 01/27 Acetaminophen PO 0835 Potassium Chloride 20 MEQ DAILY 01/19 1000 AC 01/27 PO 0834 Prednisone 10 MG DAILY 02/01 1000 AC PO 02/03 0959 Prednisone 20 MG DAILY 01/30 1000 AC PO 02/01 0959 Prednisone 30 MG DAILY 01/28 1000 AC PO 01/30 0959 Prednisone 40 MG DAILY 01/27 1000 AC 01/27 PO 01/28 0959 0835 Prednisone 40 MG DAILY 01/24 1000 DC 01/26 PO 02/03 0959 0952 Rivaroxaban 15 MG DAILY 01/19 1000 AC 01/27 PO 0835 Vital Signs Date Time Temp Pulse Resp B/P B/P Pulse O2 O2 Flow FiO2 Mean Ox Delivery Rate 01/27 0835 76 152/62 / 0834 76 152/62 / 0822 97 Room Air 01/27 0735 97.8 80 20 114/64 96 /06 0000 Room Air 01/26 2216 110/60 01/26 2158 98.6 94 20 110/60 97 Room Air / 1627 97 Room Air / 1442 97.6 97 20 120/60 96 Room Air
== END 2018-01-27 13:45 | disposition home health service (06) | DRG 193 ==
LOC: ERH 05:18 → ERHI 06:36 → 1NO 06:36 → CANRESERV 13:48 → ENRESERV 13:48 → ENTRNSPT 14:29 → EDTRNSPTSTS 14:36 → 1NO 15:00 → EDTRNSPT 15:06 → CMPTRNSPT 15:16 → DELTRNSPT 15:17 → 1NO 01-20 15:05 → 2NB 01-20 15:05 → ENTRNSPT 01-21 07:50 → EDTRNSPT 01-21 07:52 → EDTRNSPTSTS 01-21 07:52 → 2NB 01-21 08:05 → CMPTRNSPT 01-21 08:17 → ENPENDDIS 01-27 10:27 → ENTRNSPT 01-27 13:36 → 2NB 01-27 13:45 → EDTRNSPTSTS 01-27 13:46 → EDTRNSPT 01-27 13:46 → CMPTRNSPT 01-27 14:04
PROVIDERS: Emergency Medicine; Hospitalist; Internal Medicine; Student in an Organized Health Care Education/Training Program
PROC: 30233N1 Transfusion of Nonautologous Red Blood Cells into Peripheral Vein, Percutaneous Approach (ICD-10-PCS; principal; 2018-01-23)
DX: J13 Pneumonia due to Streptococcus pneumoniae (principal); J96.01 Acute respiratory failure with hypoxia; J44.0 Chronic obstructive pulmonary disease with (acute) lower respiratory infection; I50.32 Chronic diastolic (congestive) heart failure; J44.1 Chronic obstructive pulmonary disease with (acute) exacerbation; R04.2 Hemoptysis; I48.2 Chronic atrial fibrillation; I27.20 Pulmonary hypertension, unspecified; I11.0 Hypertensive heart disease with heart failure; I08.3 Combined rheumatic disorders of mitral, aortic and tricuspid valves; D64.9 Anemia, unspecified; E78.5 Hyperlipidemia, unspecified; K21.9 Gastro-esophageal reflux disease without esophagitis; E04.2 Nontoxic multinodular goiter; S81.802D Unspecified open wound, left lower leg, subsequent encounter; X58.XXXD Exposure to other specified factors, subsequent encounter; K44.9 Diaphragmatic hernia without obstruction or gangrene; I25.10 Atherosclerotic heart disease of native coronary artery without angina pectoris; Z85.118 Personal history of other malignant neoplasm of bronchus and lung; Z79.01 Long term (current) use of anticoagulants
CPT/HCPCS: 1NSP; 2NBSP; 36592; 71045; 78582; 81001; 81003; 82436; 86920; 87040; 87070; 87449; 87450; 87804; 87804-59; 93005; 93010; 93306; 93970; 94644; 94799; 96374; 96375; 97110-GO; 97116-GO; 97161-GP; 97530-GO; A9540; A9558; J0131; J0696; J0713; J1940; J2405; J2920; J3370; J3490; J7060; J7512; P9016

== ENCOUNTER 2018-02-04 11:18 | Observation (INO) | payer OTHER, MEDICARE ==
[~2018-02-04] VITALS: Ht 157.5 cm; Wt 68.9 kg
[~2018-02-04 11:18] MED LIST changes: +KEFLEX250 M1 PO
[2018-02-04 12:29] LABS: ABSOLUTE BASOPHIL COUNT 0 /CUMM (0.0-0.2); ABSOLUTE EOSINOPHIL COUNT 0 /CUMM (0.0-0.7); ABSOLUTE GRANULOCYTE CT 11.1 /CUMM (1.4-6.5); ABSOLUTE LYMPH COUNT 1.8 /CUMM (1.2-3.4); ABSOLUTE MONOCYTE COUNT 0.5 /CUMM (0.10-0.60); BASOPHIL % 0.3 % (0.0-2.0); EOSINOPHIL % 0.1 % (0-5); GRANULOCYTE % 82.6 % (42.2-75.2); MEAN CORPUSCULAR HGB CONC 32.5 G/DL (33.0-37.0); MEAN CORPUSCULAR VOLUME 77.1 FL (81.0-99.0); MEAN PLATELET VOLUME 7.3 FL (7.4-10.4); PLATELET COUNT 340 /CUMM (130-400); RBC DISTRIBUTION WIDTH 19.1 % (11.5-14.5); RED BLOOD CELL CT 4.15 /CUMM (4.20-5.40); WHITE BLOOD CELL COUNT 13.4 /CUMM (4.8-10.8)
--- NOTE | 2018-02-04 12:39 | ED CARDIAC/CP/PALPITATIONS ---
History of Present Illness General Chief Complaint: General Adult Stated Complaint: SENT BY DR. SANTANA FOR CHEST XRAY, SOB Source: patient, family, old records Exam Limitations: no limitations Vital Signs & Intake/Output Vital Signs & Intake/Output ED Intake and Output 02/07 0000 02/06 1200 Intake Total Output Total 500 Balance -500 Output, Urine 500 Patient 152 lb Weight Allergies Coded Allergies: adhesive tape (RASH ON SKIN THAT IT TOUCHES 10/22/17) iodine (DAVIS SKIN WHERE APPLIED 10/22/17) povidone-iodine (DAVIS SKIN WHERE IT IS APPLIED 10/22/17) shellfish derived (HIVES ALL OVER 10/22/17) propoxyphene (GI UPSET 10/22/17) Triage Note: PT TO ER C/C MID STERNAL CHEST HEAVINESS/TIGHTNESS 10 SINCE THIS MORNING, NOTICED WHILE GETTING READY FOR APPT. AT CHF CLINIC. PATIENT RECEIVES WEEKLY LASIX INFUSIONS AT CLINIC. PT PRESENTED TO CLINIC MORE SOB THAN USUAL, GIVEN DUONEB NO LASIX AND SENT TO ER FOR EVALUATION. PATIENT ABLE TO SPEAK IN CLEAR FULL SENTENCES, SOB WHILE LAYING FLAT. EKG COMPLETE AND SHOWN TO DR. ANDRES. TAKES XARELTO DAILY FOR HX OF AFIB. Triage Nurses Notes Reviewed? yes Onset: Gradual Duration: day(s): Timing: recent history Quality/Severity: moderate HPI: 87yo female with hx of CHF, lung cancer, a fib, HTN sent in by CHF clinic today for further evaluation of dyspnea. Patient states she was recently admitted for PNA, was discharged about one week ago on antibiotics. Patient is since finished course of antibiotics. Patient states that she has been having increasing dyspnea over the past 2 days, she currently feels worse than when she was admitted on the previous visit. Dyspnea is worse with exertion, improved with rest. Patient saw her primary care doctor and was sent to the CHF clinic today. While at the CHF clinic they gave her a DuoNeb and referred her here for further evaluation. Patient denies chest pain, abdominal pain, fevers, chills, vomiting. (Ifrah FLORES,Raissa Campbell) Reconcile Medications Albuterol Sulfate 2.5 MG/3 ML (0.083 %) VIAL.NEB 1 Vial INH/JULIO TID COPD ( Reported) Albuterol Sulfate (Ventolin Hfa) 90 MCG HFA.AER.AD 2 PUF INH Q4-6 PRN PRN SHORTNESS OF BREATH Aspirin (Ecotrin*) 81 MG TABLET.DR 1 TAB PO DAILY HEART (Reported) Atorvastatin Calcium (Lipitor) 20 MG TABLET 1 TAB PO QPM CHOLESTEROL ( Reported) Budesonide/Formoterol Fumarate (Symbicort 160-4.5 Mcg Inhaler) 160 MCG-4.5 MCG/ ACTUATION HFA.AER.AD 2 PUF INH BID COPD (Reported) Cholecalciferol (Vitamin D3) (Vitamin D3) 1,000 UNIT CAPSULE 1 CAP PO DAILY HEALTH SUPPLEMENT (Reported) Diltiazem HCl (Diltiazem 24HR Cd) 120 MG CAP.ER.24H 1 CAP PO DAILY HEART/BP ( Reported) Esomeprazole Magnesium (Nexium) 20 MG CAPSULE.DR 1 CAP PO DAILY ACID REFLUX ( Reported) Fluticasone Propionate 50 MCG/ACTUATION SPRAY.SUSP 2 SPRAY NASB DAILY ALLERGIES (Reported) Furosemide 40 MG TABLET 1 TAB PO BID DIURETIC (Reported) Guaifenesin (Mucinex) 1,200 MG TAB.ER.12H 1 TAB PO BID ALLERGIES (Reported) Losartan Potassium 100 MG TABLET 0.5 TAB PO BID BP (Reported) Magnesium Oxide 400 MG TABLET 1 TAB PO DAILY SUPPLEMENT (Reported) Metoprolol Succinate 25 MG TAB 1 TAB PO DAILY BP (Reported) [place]-3 Acid Ethyl Esters (Lovaza) 1 GRAM CAPSULE 1 CAP PO BID CHOLESTEROL/ TRIGLYCERIDES (Reported) Oxycodone HCl/Acetaminophen (Oxycodone-Acetaminophen 10-325) 10 MG-325 MG TABLET 1 TAB PO Q6H PRN PAIN (Reported) Potassium Chloride 20 MEQ TAB.ER.PRT 1 TAB PO DAILY SUPPLEMENT (Reported) Prednisone 10 MG TABLET 1 TAB PO DAILY COPD taper . Rivaroxaban (Xarelto) 15 MG TABLET 1 TAB PO DAILY afib . (Rl HALL,Berny Becerril) Past History Travel History Traveled to [place] past 21 day No Medical History Any Pertinent Medical History? 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 No (Raissa Bruno) Review of Systems Review of Systems Constitutional: Reports: no symptoms. EENTM: Reports: no symptoms. Respiratory: Reports: see HPI. Cardiovascular: Reports: see HPI. GI: Reports: no symptoms. Genitourinary: Reports: no symptoms. Musculoskeletal: Reports: no symptoms. Skin: Reports: no symptoms. Neurological/Psychological: Reports: no symptoms. Hematologic/Endocrine: Reports: no symptoms. Immunologic/Allergic: Reports: no symptoms. All Other Systems: Reviewed and Negative (Raissa Bruno) Physical Exam Physical Exam General Appearance: well developed/nourished, no apparent distress, alert, awake Head: atraumatic, normal appearance Eyes: Bilateral: normal appearance. Ears, Nose, Throat: hearing grossly normal Neck: normal inspection, supple, full range of motion Respiratory: no respiratory distress, scattered expiratory wheezes Cardiovascular: irregularly irregular Gastrointestinal: normal bowel sounds, soft, non-tender, no organomegaly Back: normal inspection, normal range of motion Extremities: normal inspection, normal range of motion, no edema Neurologic/Psych: awake, alert, oriented x 3 Skin: intact, normal color, warm/dry Core Measures ACS in differential dx? Yes CVA/TIA Diagnosis No Sepsis Present: No Sepsis Focused Exam Completed? No (Raissa Bruno) Progress Differential Diagnosis: AMI, atrial fibrillation, CHF/pulm edema, costochondritis, myocarditis, pericarditis, pneumonia, pneumothorax, PSVT, pulmonary embolism, respiratory failure, unstable angina, V-fib/V-Tach Diagnostic Imaging: Viewed by Me: Radiology Read. Discussed w/RAD: Radiology Read. CXR Impression: PATIENT: THOMAS HDZ PRESENT AGE: 87 PATIENT ACCOUNT NO: [id number] : 30 LOCATION: ER ORDERING PHYSICIAN: Raissa FLORES SERVICE DATE: 02/04/18 EXAM TYPE: RAD - XRY-CHEST XRAY, TWO VIEWS EXAMINATION: XR CHEST CLINICAL INFORMATION: Chest pain, dyspnea, hypoxia. COMPARISON: 01/23/2018 TECHNIQUE: 2 views of the chest were obtained. FINDINGS: The lungs are well expanded. Linear left midlung atelectasis/scarring, similar to prior. Improvement of prior reticular opacities. No pleural effusion. No pneumothorax. No dense consolidation. The cardiomediastinal silhouette is unchanged, with a calcified aorta. Degenerative changes throughout the spine. IMPRESSION: Improvement of prior reticular opacities. Left midlung linear atelectasis or scarring noted. DICTATED BY: Agapito Jackson MD DATE/TIME DICTATED:02/04/181239 WATER AND FIRE TECHNICIAN:GLADYS DATE/TIME TRANSCRIBED:1239 CONFIDENTIAL, DO NOT COPY WITHOUT APPROPRIATE AUTHORIZATION. < Electronically signed in Other Vendor System> SIGNED BY: Manuel HALL, Agapito 02/04/18 1245 Initial ED EKG: atrial fibrillation rate 85, multiple PVCs, nonspecific ST changes Repeat EKG: unchanged (Ifrah FLORES,Raissa Campbell) Plan of Care: Orders Procedure Date/time Status Heart Healthy Diet 02/[address] in observation 02/04 1554 Active ED Holding Orders 02/04 1554 Active Vital Signs 02/04 1554 Active Code Status 02/04 1554 Active TROPONIN LEVEL 02/04 1520 Active EKG 02/04 1520 Active D-DIMER 02/04 1413 Complete Add-on Test (ER Only) 02/04 1332 Active TROPONIN LEVEL 02/04 1207 Complete COMPREHENSIVE METABOLIC PANEL 02/04 1207 Complete CBC WITHOUT DIFFERENTIAL 02/04 1207 Complete B-TYPE NATRIURETIC PEP (BNP) 02/04 1207 Complete EKG 02/04 1119 Active Laboratory Tests 02/04/18 1550: Troponin I Pending 02/04/18 1413: D-Dimer High Sensitivty < 200 02/04/18 1221: Anion Gap 9, Estimated GFR > 60, BUN/Creatinine Ratio 28.6 H, Glucose 88, Calcium 9.1, Total Bilirubin 0.9, AST 19, ALT 42, Alkaline Phosphatase 57, Troponin I 0.01, [id number] Pept 2080 H, Total Protein 5.9 L, Albumin 3.6, Globulin 2.3, Albumin/Globulin Ratio 1.6 02/04/18 1218: CBC w Diff NO MAN DIFF REQ, RBC 4.15 L, MCV 77.1 L, MCH 25.0 L, MCHC 32.5 L, RDW 19.1 H, MPV 7.3 L, Gran % 82.6 H, Lymphocytes % 13.1 L, Monocytes % 3.9, Eosinophils % 0.1, Basophils % 0.3, Absolute Granulocytes 11.1 H, Absolute Lymphocytes 1.8, Absolute Monocytes 0.5, Absolute Eosinophils 0, Absolute Basophils [address] Santana regarding this patient. He states that based on blood work, EKG, chest x-ray this is more likely a pulmonary issue rather than CHF given improving BNP. He will consult the hospitalist team thinks necessary from cardiac standpoint. Patient's d-dimer is negative, low suspicion for pulmonary embolism at this time. Patient was ambulated here in the emergency department and had desaturation to 80s as well as 77%, patient appeared as though she may pass out during ambulation. This patient is not safe to go home based on significant oxygen desaturation with ambulation. Patient is not on home oxygen. Patient to begin as observation per case management. Dr. Huerta spoke with hospitalization regarding this patient's telemetry observation. Hypoxia with ambulation as low as 77% on room air with symptomatic dyspnea, requiring IV steroids, IV Lasix, repeat EKGs and troponins, pulmonology consult, possible cardiology consult, premature discharge is medically unsafe (Ifrah FLORES,Raissa Campbell) (Rl HALL,Berny Becerril) Departure Departure Disposition: STILL A PATIENT Condition: Stable Clinical Impression Primary Impression: Dyspnea Secondary Impressions: Hypoxia Referrals: Antonio Lopez MD (PCP/Family) Departure Forms: Customer Survey General Discharge Information Prescriptions: Current Visit Scripts Prednisone 1 TAB PO DAILY #6 TAB . Observation Note Rationale for Observation: My rational for observation is as follows [Hypoxia with ambulation as low as 77% on room air with symptomatic dyspnea, requiring IV steroids, IV Lasix, repeat EKGs and troponins, pulmonology consult, possible cardiology consult, premature discharge is medically unsafe]. (Raissa Bruno) Observation Note Spoke With: Antonio Lopez MD Physician Advisor Notified: RL HALL,BERNY Becerril Place Patient In: Non-ED OBS Care Area Rationale for Observation: My rational for observation is as follows [IV STEROIDS, IV ABX, TELE MONITORING, CARDIOLOGY CONSULTATION,. PULMONARY CONSULTATION]. PA/HI RANGER OPERATOR Co-Sign Statement Statement: ED Attending supervision documentation- [X] I saw and evaluated the patient. I have also reviewed all the pertinent lab results and diagnostic results. I agree with the findings and the plan of care as documented in the PA's/HI RANGER OPERATOR's documentation. [X] I have reviewed the ED Record and agree with the PA's/HI RANGER OPERATOR's documentation. [] Additions or exceptions (if any) to the PAs/HI RANGER OPERATOR's note and plan are summarized below: [SEE ABOVE NOTE] (Rl HALL,Berny Becerril) Critical Care Note Critical Care Note Critical Care Time: 30-74 min (Ifrah FLORES,Raissa Campbell)
--- NOTE | 2018-02-04 12:45 | RADIOLOGY REPORT ---
EXAMINATION: XR CHEST CLINICAL INFORMATION: Chest pain, dyspnea, hypoxia. COMPARISON: 01/23/2018 TECHNIQUE: 2 views of the chest were obtained. FINDINGS: The lungs are well expanded. Linear left midlung atelectasis/scarring, similar to prior. Improvement of prior reticular opacities. No pleural effusion. No pneumothorax. No dense consolidation. The cardiomediastinal silhouette is unchanged, with a calcified aorta. Degenerative changes throughout the spine. IMPRESSION: Improvement of prior reticular opacities. Left midlung linear atelectasis or scarring noted.
--- NOTE | 2018-02-04 16:26 | History & Physical ---
Sendy Thibodeaux 02/04/18 2175: General Information and HPI MD Statement: I have seen and personally examined THOMAS HDZ and documented this H&P. The patient is a 87 year old F who presented with a patient stated chief complaint of [SOB]. Source of Information: patient, family, old records Exam Limitations: no limitations History of Present Illness: Ms. Hdz is a 87-year-old female with PMH significant for A.fib on anticoagulation, chronic diastolic CHF on Lasix, HTN, HLD, COPD not on home oxygen, NSCLC and carcinoid tumor, with B/L lobectomies and s/p radiation for a lingular nodule, and radiation pneumonitis, multinodular thyroid gland, GERD, osteoarthritis, healing left lower extremity wound who presents to the hospital for evaluation of acute shortness of breath and sudden onset of weakness. She was recently treated for community accquired Strep pneumonia and COPD exacerbation with a steroid taper. This morning, patient was to follow up w/ Dr. Lopez and was found to have SOB, and was given IV steroids with little improvement, and was sent to ER. During our clinical interaction, patient was not on any oxygen, and had no more SOB or chest discomfort. Allergies/Medications Allergies: Coded Allergies: adhesive tape (RASH ON SKIN THAT IT TOUCHES 10/22/17) iodine (DAVIS SKIN WHERE APPLIED 10/22/17) povidone-iodine (DAVIS SKIN WHERE IT IS APPLIED 10/22/17) shellfish derived (HIVES ALL OVER 10/22/17) propoxyphene (GI UPSET 10/22/17) Home Med list Albuterol Sulfate 2.5 MG/3 ML (0.083 %) VIAL.NEB 1 Vial INH/JULIO TID COPD ( Reported) Albuterol Sulfate (Ventolin Hfa) 90 MCG HFA.AER.AD 2 PUF INH Q4-6 PRN PRN SHORTNESS OF BREATH Aspirin (Ecotrin*) 81 MG TABLET.DR 1 TAB PO DAILY HEART (Reported) Atorvastatin Calcium (Lipitor) 20 MG TABLET 1 TAB PO QPM CHOLESTEROL ( Reported) Budesonide/Formoterol Fumarate (Symbicort 160-4.5 Mcg Inhaler) 160 MCG-4.5 MCG/ ACTUATION HFA.AER.AD 2 PUF INH BID COPD (Reported) Cholecalciferol (Vitamin D3) (Vitamin D3) 1,000 UNIT CAPSULE 1 CAP PO DAILY HEALTH SUPPLEMENT (Reported) Diltiazem HCl (Diltiazem 24HR Cd) 120 MG CAP.ER.24H 1 CAP PO DAILY HEART/BP ( Reported) Esomeprazole Magnesium (Nexium) 20 MG CAPSULE.DR 1 CAP PO DAILY ACID REFLUX ( Reported) Fluticasone Propionate 50 MCG/ACTUATION SPRAY.SUSP 2 SPRAY NASB DAILY ALLERGIES (Reported) Furosemide 40 MG TABLET 1 TAB PO BID DIURETIC (Reported) Guaifenesin (Mucinex) 1,200 MG TAB.ER.12H 1 TAB PO BID ALLERGIES (Reported) Losartan Potassium 100 MG TABLET 0.5 TAB PO BID BP (Reported) Magnesium Oxide 400 MG TABLET 1 TAB PO DAILY SUPPLEMENT (Reported) Metoprolol Succinate 25 MG TAB 1 TAB PO DAILY BP (Reported) [place]-3 Acid Ethyl Esters (Lovaza) 1 GRAM CAPSULE 1 CAP PO BID CHOLESTEROL/ TRIGLYCERIDES (Reported) Oxycodone HCl/Acetaminophen (Oxycodone-Acetaminophen 10-325) 10 MG-325 MG TABLET 1 TAB PO Q6H PRN PAIN (Reported) Potassium Chloride 20 MEQ TAB.ER.PRT 1 TAB PO DAILY SUPPLEMENT (Reported) Rivaroxaban (Xarelto) 15 MG TABLET 1 TAB PO DAILY afib . 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 spouse Services at Home: None Primary Language: Ivorian Smoking Status: Never Smoked ETOH Use: occasional use Illicit Drug Use: denies illicit drug use Living Will? yes Functional Ability ADLs Independent: dressing, eating, toileting, bathing. Ambulation: independent IADLs Independent: shopping, housework, finances, food prep, telephone, transportation , medication admin. Review of Systems Review of Systems Constitutional: Reports: see HPI. Exam & Diagnostic Data Last 24 Hrs of Vital Signs/I&O Vital Signs Date Time Temp Pulse Resp B/P B/P Pulse O2 O2 Flow FiO2 Mean Ox Delivery Rate 02/04 2031 70 16 120/60 97 Room Air 02/04 1508 98.1 84 18 116/58 100 Room Air 02/04 1210 Room Air 02/04 1153 96.9 83 18 137/69 92 Room Air Intake & Output 02/04 1600 02/04 0800 02/04 0000 Intake Total Output Total Balance Patient 68.946 kg Weight Weight Reported by Patient Measurement Method Physical Exam General Appearance Alert, Oriented X3, Cooperative, No Acute Distress Skin No Rashes, No Breakdown, No Significant Lesion Skin Temp/Moisture Exam: Warm/Dry Sepsis Skin Exam (color): Normal for Ethnicity HEENT Atraumatic, PERRLA Neck Supple, No JVD Cardiovascular Regular Rate, Normal S1, Normal S2 Lungs Normal Air Movement, mild rales no wheezing Abdomen Normal Bowel Sounds, Soft, No Tenderness Neurological Normal Speech, Strength at 5/5 X4 Ext Extremities No Edema, Normal Pulses, LLE in dressing care Last 24 Hrs of Labs/Jem: Laboratory Tests 02/04/18 1550: Troponin I 0.02 02/04/18 1413: D-Dimer High Sensitivty < 200 02/04/18 1221: Anion Gap 9, Estimated GFR > 60, BUN/Creatinine Ratio 28.6 H, Glucose 88, Calcium 9.1, Total Bilirubin 0.9, AST 19, ALT 42, Alkaline Phosphatase 57, Troponin I 0.01, [id number] Pept 2080 H, Total Protein 5.9 L, Albumin 3.6, Globulin 2.3, Albumin/Globulin Ratio 1.6 02/04/18 1218: CBC w Diff NO MAN DIFF REQ, RBC 4.15 L, MCV 77.1 L, MCH 25.0 L, MCHC 32.5 L, RDW 19.1 H, MPV 7.3 L, Gran % 82.6 H, Lymphocytes % 13.1 L, Monocytes % 3.9, Eosinophils % 0.1, Basophils % 0.3, Absolute Granulocytes 11.1 H, Absolute Lymphocytes 1.8, Absolute Monocytes 0.5, Absolute Eosinophils 0, Absolute Basophils 0 Assessment/Plan Assessment: Ms. Hdz is a 87-year-old female with PMH significant for A.fib on anticoagulation, chronic diastolic CHF on Lasix, HTN, HLD, COPD not on home oxygen, NSCLC and carcinoid tumor, with B/L lobectomies and s/p radiation for a lingular nodule, and radiation pneumonitis, multinodular thyroid gland, GERD, osteoarthritis, healing left lower extremity wound who presents to the hospital for evaluation of acute shortness of breath and sudden onset of weakness. She was recently treated for community accquired Strep pneumonia and COPD exacerbation with a steroid taper. This morning, patient was to follow up w/ Dr. Lopez and was found to have SOB, and was given IV steroids with little improvement, and was sent to ER. During our clinical interaction, patient was not on any oxygen, and had no more SOB or chest discomfort. On admission, Vitals: stable under room air -CBC: WBC 13.4, H/H 10.4/32.0, MCV 77.1, -BMP: unremarkable -Misc: Trop 0.02 -CXR: Improvement of prior reticular opacities. Left midlung linear atelectasis or scarring noted. -EKG: Normal sinus rhythm with nonspecific ST-T abnormalities. -Echo on January 23 2018 showed a small left ventricular cavity. Mild concentric left ventricular hypertrophy. No obvious regional wall motion abnormalities. Hyperdynamic left ventricular systolic function. Normal left ventricular ejection fraction estimated at 65-70%. -Interventions in ER: Albuterol, Atrovent, Lasix 40mg x 1, Solumedrol 125mg x 1 Assessment: Ms. Hdz is a 87-year-old female with PMH significant for A.fib on anticoagulation, chronic diastolic CHF on Lasix, HTN, HLD, COPD not on home oxygen, NSCLC and carcinoid tumor, with B/L lobectomies and s/p radiation for a lingular nodule, and radiation pneumonitis, multinodular thyroid gland, GERD, osteoarthritis, healing left lower extremity wound who presents to the hospital for evaluation of acute shortness of breath and sudden onset of weakness. It is unclear whether patient's SOB was due to COPD exacerbation (no wheezing, just finished prednisone taper) or acute on CHF (no crackles, no CXR evidence). Leukocytosis likely due to use of steroids. Problem list #HFpEF #COPD #PMH of A-fib on Xarelto,HTN, HLD, GERD,Chronic LLE wound Plan - Placed in observation on Telemetry - COntinued IV solumedrol 40mg q8 and will taper per clinical course - TRC/Nebs/O2 as needed - Pending Cardiology consult - Pending Pulmonary Consult - Pending Wound consult - PT eval - Hold PO Lasix, started IV Lasix 40mg qd - Continued all other home meds DVT prophylaxis Xarelto + ALPS CHF Diet Full Code As Ranked By This Provider Problem List: 1. Leukocytosis 2. [facility] current use of anticoagulant 3. Open wound of leg 4. CHF (congestive heart failure) 5. COPD (chronic obstructive pulmonary disease) Core Measures/Misc (08/10) Acute Coronary Syndrome ACS Diagnosis: No Congestive Heart Failure Congestive Heart Failure Diagnosis Yes Last Known EF % 60 Cerebrovascular Accident CVA/TIA Diagnosis: No VTE (View Protocol) VTE Risk Factors Age>40 No Mechanical VTE Prophylaxis d/t N/A MechProphylax Ordered No VTE Pharm Prophylaxis d/t NA PharmProphylax ordered Sepsis (View protocol) Sepsis Present: No Dottie Charles MD 02/04/18 1750: Resident Review Statement Resident Statement: examined this patient, discussed with internet marketing specialist, agreed with internet marketing specialist, reviewed EMR data (avail), reviewed images, amended to note Other Findings: 87-year-old female with PMH significant for A.fib on anticoagulation, chronic diastolic CHF on Lasix, HTN, HLD, COPD not on home oxygen, NSCLC and carcinoid tumor, with B/L lobectomies and s/p radiation for a lingular nodule, and radiation pneumonitis, multinodular thyroid gland, GERD, osteoarthritis, healing left lower extremity wound who presents to the hospital for evaluation of acute shortness of breath and sudden onset of weakness. He was recently treated for ommunity accquired Strep pneumonia that seems to be resolving and COPD exacerbation with a steroid taper. Echo on January 23 2018 showed a small left ventricular cavity. Mild concentric left ventricular hypertrophy. No obvious regional wall motion abnormalities. Hyperdynamic left ventricular systolic function. Normal left ventricular ejection fraction estimated at 65-70%. CXR-Improvement of prior reticular opacities. Left midlung linear atelectasis or scarring noted [id number] (01/19/18 pro-BNP was 3150) Problem list 1. COPD exacebation 2. Chronic diastolic heart failure on lasix (preserved EF) 3. Chronic atrial fibrillation on xarelto 4. Hypertension 5. Hyperlipidemia 6. GERD 7. Chronic healing left lower extremity wound Plan -Observe on tele floor -No clear signs of a pneumonia, elevated WBC could be due to steroids. -Patient received IV solumedrol 125mg in the ER; will continue IV solumedrol 40mg Q8hrs and taper down as needed -TRC/Nebs -O2 supplemementation if needed -Cardiology consult -Pulmonary consult -Hold oral lasix for now; give 40mg IV lasix daily -Wound care consult -PT consult -Continue her impt home medications -Pain control with Tyelonol as needed -CHF diet -FC -DVT ppx with xarelto/alps -Follow attending recommendations
--- NOTE | 2018-02-04 20:42 | Admission Certification ---
Admission Certification Certification Statement - As attending physician, I certify that at the time of - admission, based on clinical presentation, severity of - symptoms, need for further diagnostic testing and - therapeutic interventions, and risk of adverse outcomes - without in-hospital treatment, in my clinical assessment, - this patient requires an acute hospital stay for a minimum - of two nights or longer. I have also considered psychsocial - factors such as support system, advanced age, financial - issues, cognitive issues, and failed out-patient treatments, - past re-admission history, safety of patient, and lack of - compliance as applicable. Specific rationale supporting this admission is: Sudden increased shortness of breath, hypoxemia on exertion despite following closely with the infusion clinic.
--- NOTE | 2018-02-04 20:45 | PN- Att Addend ---
Attending Addendum Attending Brief Note 87-year-old white female was slowly getting better from her recent admission. States she has lost weight and her edema is less. Still very tired. Came to my office for her appointment after admission and suddenly became short of breath. I called infusion clinic and she was seeing immediately (her appointment was in the afternoon) was given her treatment with IV steroids with a little improvement but again as soon as she moved and walked she became short of breath and hypoxemic and was sent to the ER. A chest x-ray if anything looks a little better but still cannot go home with her wound in the leg is slowly improving will have again cardiology and pulmonary consultations and treat for an exacerbation of her COPD. Current Medications Sig/Heena Start time Last Medication Dose Route Stop Time Status Admin Acetaminophen 650 MG Q6P PRN 02/04 1800 AC PO Albuterol Sulfate 3 ML ONCE ONE 02/04 1315 DC INH 02/04 1316 Aspirin Buffered 81 MG DAILY 02/05 1000 AC PO Atorvastatin Calcium 20 MG QPM 02/04 2200 AC PO Budesonide/ 2 PUF BID 02/04 2200 AC Formoterol Fumarate INH Cholecalciferol 1,000 IU DAILY 02/05 1000 AC PO Diltiazem HCl 120 MG DAILY 02/05 1000 AC PO Furosemide 40 MG DAILY 02/05 1000 AC IV Furosemide 0 .STK-MED ONE 02/04 1401 DC IV Furosemide 40 MG ONCE ONE 02/04 1345 DC 02/04 IV 02/04 1346 1357 Ipratropium [place] 2.5 ML ONCE ONE 02/04 1315 DC INH 02/04 1316 Losartan Potassium 50 MG BID 02/04 2200 AC PO Methylprednisolone 40 MG Q8 02/04 2200 AC IV Methylprednisolone 40 MG Q6 02/04 1800 DC 02/04 IV 1915 Methylprednisolone 0 .STK-MED ONE 02/04 1652 DC .ROUTE Methylprednisolone 125 MG ONCE ONE 02/04 1600 DC 02/04 IV 02/04 1601 1649 Metoprolol Succinate 25 MG DAILY 02/05 1000 AC PO Omeprazole 20 MG DAILY AC 02/05 0700 AC PO Polyethylene Glycol 17 GM DAILY NEEDED PRN 02/04 1800 DC PO Rivaroxaban 15 MG DAILY 02/05 1000 AC PO Laboratory Tests 02/04/18 1550: Troponin I 0.02 02/04/18 1413: D-Dimer High Sensitivty < 200 02/04/18 1221: Anion Gap 9, Estimated GFR > 60, BUN/Creatinine Ratio 28.6 H, Glucose 88, Calcium 9.1, Total Bilirubin 0.9, AST 19, ALT 42, Alkaline Phosphatase 57, Troponin I 0.01, [id number] Pept 2080 H, Total Protein 5.9 L, Albumin 3.6, Globulin 2.3, Albumin/Globulin Ratio 1.6 02/04/18 1218: CBC w Diff NO MAN DIFF REQ, RBC 4.15 L, MCV 77.1 L, MCH 25.0 L, MCHC 32.5 L, RDW 19.1 H, MPV 7.3 L, Gran % 82.6 H, Lymphocytes % 13.1 L, Monocytes % 3.9, Eosinophils % 0.1, Basophils % 0.3, Absolute Granulocytes 11.1 H, Absolute Lymphocytes 1.8, Absolute Monocytes 0.5, Absolute Eosinophils 0, Absolute Basophils 0 Vital Signs Date Time Temp Pulse Resp B/P B/P Pulse O2 O2 Flow FiO2 Mean Ox Delivery Rate 02/04 2031 70 16 120/60 97 Room Air 02/04 1508 98.1 84 18 116/58 100 Room Air Intake & Output 02/04 1600 Intake Total Output Total Balance Patient 152 lb Weight Weight Reported by Patient Measurement Method
[2018-02-05 06:28] LABS: ABSOLUTE BASOPHIL COUNT 0 /CUMM (0.0-0.2); ABSOLUTE EOSINOPHIL COUNT 0 /CUMM (0.0-0.7); ABSOLUTE GRANULOCYTE CT 5.1 /CUMM (1.4-6.5); ABSOLUTE MONOCYTE COUNT 0 /CUMM (0.10-0.60); EOSINOPHIL % 0 % (0-5); MEAN CORPUSCULAR HGB 24.7 PG (27.0-31.0); MEAN CORPUSCULAR HGB CONC 32.4 G/DL (33.0-37.0); MEAN CORPUSCULAR VOLUME 76.3 FL (81.0-99.0)
[2018-02-05 06:30] LABS: ABSOLUTE LYMPH COUNT 0.6 /CUMM (1.2-3.4); BASOPHIL % 0 % (0.0-2.0); HEMATOCRIT 31.8 % (37-47); MEAN PLATELET VOLUME 7.6 FL (7.4-10.4); PLATELET COUNT 340 /CUMM (130-400); RBC DISTRIBUTION WIDTH 19.2 % (11.5-14.5); RED BLOOD CELL CT 4.16 /CUMM (4.20-5.40)
[2018-02-05 06:53] LABS: WHITE BLOOD CELL COUNT 5.8 /CUMM (4.8-10.8)
[2018-02-05 06:54] LABS: GRANULOCYTE % 88.6 % (42.2-75.2)
--- NOTE | 2018-02-05 07:17 | PN-Observation ---
Observation Note Observation Note _ I have personally examined THOMAS HDZ. her disposition is uncertain at this time. Before a determination can be made, she requires continued observation for the following reasons [Shortness of Breath]. Assessment/Plan Medical Assessment: Ms. Hdz is a 87-year-old female with PMH significant for A.fib on anticoagulation, chronic diastolic CHF on Lasix, HTN, HLD, COPD not on home oxygen, NSCLC and carcinoid tumor, with B/L lobectomies and s/p radiation for a lingular nodule, and radiation pneumonitis, multinodular thyroid gland, GERD, osteoarthritis, healing left lower extremity wound who presents to the hospital for evaluation of acute shortness of breath and sudden onset of weakness. Leukocytosis likely due to use of steroids. Problem list #HFpEF #COPD, w/ residual bronchospasm #PMH of A-fib on Xarelto,HTN, HLD, GERD,Chronic LLE wound Plan - Per pulm consult, will switch to PO prednisone 60mg and sent home on tapering. - TRC/Nebs/O2 as needed - Pending Cardiology consult for lasix use/CHF - Wound care cleansing daily with Xeroform and leg elevation - Continued all other home meds DVT prophylaxis Xarelto + ALPS CHF Diet Full Code Problem List: 1. COPD (chronic obstructive pulmonary disease) 2. CHF (congestive heart failure) Subjective Follow-up For: #HFpEF #COPD #Bronchospasm #PMH of A-fib on Xarelto,HTN, HLD, GERD,Chronic LLE wound Tele-Events Since Last Visit: NSR Subjective: No overnight event. patient felt no SOB overnight and slept ok. No sother specific complaint. Review of Systems Constitutional: Reports: see HPI. Objective Last 24 Hrs of Vital Signs/I&O Vital Signs Date Time Temp Pulse Resp B/P B/P Pulse O2 O2 Flow FiO2 Mean Ox Delivery Rate 02/05 1018 97.2 85 18 125/63 02/05 1018 97.2 85 18 125/63 02/05 0825 97.2 85 18 125/63 99 Room Air 02/05 0632 97.3 80 18 129/78 98 Room Air 02/05 0018 97.7 81 18 134/80 100 Room Air 02/04 2241 98.1 70 16 120/60 02/04 2031 70 16 120/60 97 Room Air 02/04 1508 98.1 84 18 116/58 100 Room Air 02/04 1210 Room Air 02/04 1153 96.9 83 18 137/69 92 Room Air Intake & Output 02/05 1600 02/05 0800 02/05 0000 Intake Total Output Total 900 Balance -900 Output, Urine 900 Physical Exam General Appearance: Alert, Oriented X3, Cooperative, No Acute Distress Cardiovascular: Regular Rate, Normal S1, Normal S2 Lungs: Clear to Auscultation, Normal Air Movement Abdomen: Soft, No Tenderness Extremities: LLE in wound care dressing, BLEs no edema Current Medications: Current Medications Sig/Heena Start time Last Medication Dose Route Stop Time Status Admin Acetaminophen 650 MG Q6P PRN 02/04 1800 AC PO Albuterol Sulfate 3 ML ONCE ONE 02/04 1315 DC INH 02/04 1316 Aspirin Buffered 81 MG DAILY 02/05 1000 AC 02/05 PO 1018 Atorvastatin Calcium 20 MG QPM 02/04 2200 AC 02/04 PO 2241 Budesonide/ 2 PUF BID 02/04 2200 AC 02/05 Formoterol Fumarate INH 1018 Cholecalciferol 1,000 IU DAILY 02/05 1000 AC 02/05 PO 1018 Diltiazem HCl 120 MG DAILY 02/05 1000 AC 02/05 PO 1018 Furosemide 40 MG DAILY 02/05 1000 AC 02/05 IV 1018 Furosemide 0 .STK-MED ONE 02/04 1401 DC IV Furosemide 40 MG ONCE ONE 02/04 1345 DC 02/04 IV 02/04 1346 1357 Ipratropium [place] 2.5 ML ONCE ONE 02/04 1315 DC INH 02/04 1316 Losartan Potassium 50 MG BID 02/04 2200 AC 02/05 PO 1018 Methylprednisolone 40 MG Q8 02/04 2200 DC 02/05 IV 0610 Methylprednisolone 40 MG Q6 02/04 1800 DC 02/04 IV 1915 Methylprednisolone 0 .STK-MED ONE 02/04 1652 DC .ROUTE Methylprednisolone 125 MG ONCE ONE 02/04 1600 DC 02/04 IV 02/04 1601 1649 Metoprolol Succinate 25 MG DAILY 02/05 1000 AC 02/05 PO 1018 Omeprazole 20 MG DAILY AC 02/05 0700 AC 02/05 PO 0705 Polyethylene Glycol 17 GM DAILY NEEDED PRN 02/04 1800 DC PO Prednisone 60 MG DAILY 03/15 1045 UNVr PO Rivaroxaban 15 MG DAILY 02/05 1000 AC 02/05 PO 1018 Last 24 Hrs of Labs/Mics: Laboratory Tests 02/05/18 0615: Anion Gap 9, Estimated GFR > 60, BUN/Creatinine Ratio 40.0 H, CBC w Diff NO MAN DIFF REQ, RBC 4.16 L, MCV 76.3 L, MCH 24.7 L, MCHC 32.4 L, RDW 19.2 H, MPV 7.6, Gran % 88.6 H, Lymphocytes % 10.7 L, Monocytes % 0.7 L, Eosinophils % 0, Basophils % 0, Absolute Granulocytes 5.1, Absolute Lymphocytes 0.6 L, Absolute Monocytes 0 L, Absolute Eosinophils 0, Absolute Basophils 0 02/04/18 1550: Troponin I 0.02 02/04/18 1413: D-Dimer High Sensitivty < 200 02/04/18 1221: Anion Gap 9, Estimated GFR > 60, BUN/Creatinine Ratio 28.6 H, Glucose 88, Calcium 9.1, Total Bilirubin 0.9, AST 19, ALT 42, Alkaline Phosphatase 57, Troponin I 0.01, [id number] Pept 2080 H, Total Protein 5.9 L, Albumin 3.6, Globulin 2.3, Albumin/Globulin Ratio 1.6 02/04/18 1218: CBC w Diff NO MAN DIFF REQ, RBC 4.15 L, MCV 77.1 L, MCH 25.0 L, MCHC 32.5 L, RDW 19.1 H, MPV 7.3 L, Gran % 82.6 H, Lymphocytes % 13.1 L, Monocytes % 3.9, Eosinophils % 0.1, Basophils % 0.3, Absolute Granulocytes 11.1 H, Absolute Lymphocytes 1.8, Absolute Monocytes 0.5, Absolute Eosinophils 0, Absolute Basophils 0
--- NOTE | 2018-02-05 09:49 | Cons- Pulmonary ---
General Information and HPI Consulting Request Date of Consult: 02/05/18 Requested By: Erum Reason for Consult: Shortness of breath History of Present Illness: Patient is 87-year-old with COPD carcinoid tumor congestive heart failure recently discharged for pneumococcal pneumonia presents to the emergency room with acute shortness of breath which has resolved. She is currently on room air with oxygen saturation of 99% she's had no chest pain cough hemoptysis. Her chest x-ray is improved. Allergies/Medications Allergies: Coded Allergies: adhesive tape (RASH ON SKIN THAT IT TOUCHES 10/22/17) iodine (DAVIS SKIN WHERE APPLIED 10/22/17) povidone-iodine (DAVIS SKIN WHERE IT IS APPLIED 10/22/17) shellfish derived (HIVES ALL OVER 10/22/17) propoxyphene (GI UPSET 10/22/17) Home Med List: Albuterol Sulfate 2.5 MG/3 ML (0.083 %) VIAL.NEB 1 Vial INH/JULIO TID COPD ( Reported) Albuterol Sulfate (Ventolin Hfa) 90 MCG HFA.AER.AD 2 PUF INH Q4-6 PRN PRN SHORTNESS OF BREATH Aspirin (Ecotrin*) 81 MG TABLET.DR 1 TAB PO DAILY HEART (Reported) Atorvastatin Calcium (Lipitor) 20 MG TABLET 1 TAB PO QPM CHOLESTEROL ( Reported) Budesonide/Formoterol Fumarate (Symbicort 160-4.5 Mcg Inhaler) 160 MCG-4.5 MCG/ ACTUATION HFA.AER.AD 2 PUF INH BID COPD (Reported) Cholecalciferol (Vitamin D3) (Vitamin D3) 1,000 UNIT CAPSULE 1 CAP PO DAILY HEALTH SUPPLEMENT (Reported) Diltiazem HCl (Diltiazem 24HR Cd) 120 MG CAP.ER.24H 1 CAP PO DAILY HEART/BP ( Reported) Esomeprazole Magnesium (Nexium) 20 MG CAPSULE.DR 1 CAP PO DAILY ACID REFLUX ( Reported) Fluticasone Propionate 50 MCG/ACTUATION SPRAY.SUSP 2 SPRAY [place]B DAILY ALLERGIES (Reported) Furosemide 40 MG TABLET 1 TAB PO BID DIURETIC (Reported) Guaifenesin (Mucinex) 1,200 MG TAB.ER.12H 1 TAB PO BID ALLERGIES (Reported) Losartan Potassium 100 MG TABLET 0.5 TAB PO BID BP (Reported) Magnesium Oxide 400 MG TABLET 1 TAB PO DAILY SUPPLEMENT (Reported) Metoprolol Succinate 25 MG TAB 1 TAB PO DAILY BP (Reported) [place]-3 Acid Ethyl Esters (Lovaza) 1 GRAM CAPSULE 1 CAP PO BID CHOLESTEROL/ TRIGLYCERIDES (Reported) Oxycodone HCl/Acetaminophen (Oxycodone-Acetaminophen 10-325) 10 MG-325 MG TABLET 1 TAB PO Q6H PRN PAIN (Reported) Potassium Chloride 20 MEQ TAB.ER.PRT 1 TAB PO DAILY SUPPLEMENT (Reported) Rivaroxaban (Xarelto) 15 MG TABLET 1 TAB PO DAILY afib . Review of Systems Review of Systems Constitutional: Reports: weakness. Denies: chills, fever. Cardiovascular: Denies: chest pain. Respiratory: Reports: short of breath, wheezing. GI: Denies: abdominal pain, diarrhea, melena. 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 spouse Services at Home: None Primary Language: Sammarinese Smoking Status: Never Smoked ETOH Use: occasional use Illicit Drug Use: denies illicit drug use Living Will? yes Functional Ability ADLs Independent: dressing, eating, toileting, bathing. Ambulation: independent IADLs Independent: shopping, housework, finances, food prep, telephone, transportation , medication admin. Exam & Diagnostic Data Last 24 Hrs of Vital Signs/I&O Vital Signs Date Time Temp Pulse Resp B/P B/P Pulse O2 O2 Flow FiO2 Mean Ox Delivery Rate 02/05 0825 97.2 85 18 125/63 99 Room Air 02/05 0632 97.3 80 18 129/78 98 Room Air 02/05 0018 97.7 81 18 134/80 100 Room Air 02/04 2241 98.1 70 16 120/60 02/04 2031 70 16 120/60 97 Room Air 02/04 1508 98.1 84 18 116/58 100 Room Air 02/04 1210 Room Air 02/04 1153 96.9 83 18 137/69 92 Room Air Intake & Output 02/05 1600 02/05 0800 02/05 0000 Intake Total Output Total 900 Balance -900 Output, Urine 900 Room air oxygen saturation 98% shows no adenopathy or jugular venous distention exam for chest shows scattered expiratory wheezing most prominent at the left base exam shows a regular rhythm there are no murmurs abdomen is soft nontender left lower extremity wound is markedly improved with 100% red fill and 50% epithelialized Last 48 Hrs of Labs/Jem: Laboratory Tests 02/05/18 0615: Anion Gap 9, Estimated GFR > 60, BUN/Creatinine Ratio 40.0 H, CBC w Diff NO MAN DIFF REQ, RBC 4.16 L, MCV 76.3 L, MCH 24.7 L, MCHC 32.4 L, RDW 19.2 H, MPV 7.6, Gran % 88.6 H, Lymphocytes % 10.7 L, Monocytes % 0.7 L, Eosinophils % 0, Basophils % 0, Absolute Granulocytes 5.1, Absolute Lymphocytes 0.6 L, Absolute Monocytes 0 L, Absolute Eosinophils 0, Absolute Basophils 0 02/04/18 1550: Troponin I 0.02 02/04/18 1413: D-Dimer High Sensitivty < 200 02/04/18 1221: Anion Gap 9, Estimated GFR > 60, BUN/Creatinine Ratio 28.6 H, Glucose 88, Calcium 9.1, Total Bilirubin 0.9, AST 19, ALT 42, Alkaline Phosphatase 57, Troponin I 0.01, [id number] Pept 2080 H, Total Protein 5.9 L, Albumin 3.6, Globulin 2.3, Albumin/Globulin Ratio 1.6 02/04/18 1218: CBC w Diff NO MAN DIFF REQ, RBC 4.15 L, MCV 77.1 L, MCH 25.0 L, MCHC 32.5 L, RDW 19.1 H, MPV 7.3 L, Gran % 82.6 H, Lymphocytes % 13.1 L, Monocytes % 3.9, Eosinophils % 0.1, Basophils % 0.3, Absolute Granulocytes 11.1 H, Absolute Lymphocytes 1.8, Absolute Monocytes 0.5, Absolute Eosinophils 0, Absolute Basophils 0 Assessment/Plan Impression/Plan: 7-year-old woman with COPD underlying heart disease recently discharged for pneumococcal pneumonia presented with transient shortness of breath. This is likely related to bronchospasm though her BMP remains elevated. She is anticoagulated for her atrial fibrillation. Recommendations: IV steroids for 24 hours and transition to by mouth prednisone. Nebulized bronchodilators. Wound care cleansing daily with Xeroform and leg elevation. If her cardiac evaluation is unrevealing would hope to discharge tomorrow Consult Acknowledgment - Thank you for your consult request.
--- NOTE | 2018-02-05 11:25 | PN- Att Addend ---
Attending Addendum Attending Brief Note Patient looking and feeling better not short of breath at rest Vital signs are stable no fever. Better air entry on lung auscultation. About the same. Appreciate Dr. Ortiz's input and recommendations. We'll continue observation today will be switching soon the steroids to by mouth and taper slowly get out of bed and monitor O2 saturation at rest and with ambulation. 24 TOTALS 02/05 0000 02/04 0000 Intake Total Output Total Balance Patient 152 lb Weight Weight Reported by Patient Measurement Method Current Medications Sig/Heena Start time Last Medication Dose Route Stop Time Status Admin Acetaminophen 650 MG Q6P PRN 02/04 1800 AC PO Albuterol Sulfate 3 ML ONCE ONE 02/04 1315 DC INH 02/04 1316 Aspirin Buffered 81 MG DAILY 02/05 1000 AC 02/05 PO 1018 Atorvastatin Calcium 20 MG QPM 02/04 2200 AC 02/04 PO 2241 Budesonide/ 2 PUF BID 02/04 2200 AC 02/05 Formoterol Fumarate INH 1018 Cholecalciferol 1,000 IU DAILY 02/05 1000 AC 02/05 PO 1018 Diltiazem HCl 120 MG DAILY 02/05 1000 AC 02/05 PO 1018 Furosemide 40 MG DAILY 02/05 1000 AC 02/05 IV 1018 Furosemide 0 .STK-MED ONE 02/04 1401 DC IV Furosemide 40 MG ONCE ONE 02/04 1345 DC 02/04 IV 02/04 1346 1357 Ipratropium [place] 2.5 ML ONCE ONE 02/04 1315 DC INH 02/04 1316 Losartan Potassium 50 MG BID 02/04 2200 AC 02/05 PO 1018 Methylprednisolone 40 MG Q8 02/04 2200 DC 02/05 IV 0610 Methylprednisolone 40 MG Q6 02/04 1800 DC 02/04 IV 1915 Methylprednisolone 0 .STK-MED ONE 02/04 1652 DC .ROUTE Methylprednisolone 125 MG ONCE ONE 02/04 1600 DC 02/04 IV 02/04 1601 1649 Metoprolol Succinate 25 MG DAILY 02/05 1000 AC 02/05 PO 1018 Omeprazole 20 MG DAILY AC 02/05 0700 AC 02/05 PO 0705 Polyethylene Glycol 17 GM DAILY NEEDED PRN 02/04 1800 DC PO Prednisone 60 MG DAILY 02/05 1600 AC PO Rivaroxaban 15 MG DAILY 02/05 1000 AC 02/05 PO 1018 Laboratory Tests 02/05/18 0615: Anion Gap 9, Estimated GFR > 60, BUN/Creatinine Ratio 40.0 H, CBC w Diff NO MAN DIFF REQ, RBC 4.16 L, MCV 76.3 L, MCH 24.7 L, MCHC 32.4 L, RDW 19.2 H, MPV 7.6, Gran % 88.6 H, Lymphocytes % 10.7 L, Monocytes % 0.7 L, Eosinophils % 0, Basophils % 0, Absolute Granulocytes 5.1, Absolute Lymphocytes 0.6 L, Absolute Monocytes 0 L, Absolute Eosinophils 0, Absolute Basophils 0 02/04/18 1550: Troponin I 0.02 02/04/18 1413: D-Dimer High Sensitivty < 200 02/04/18 1221: Anion Gap 9, Estimated GFR > 60, BUN/Creatinine Ratio 28.6 H, Glucose 88, Calcium 9.1, Total Bilirubin 0.9, AST 19, ALT 42, Alkaline Phosphatase 57, Troponin I 0.01, Vfg-[id number]-Bzqsxyqcphz Pept 2080 H, Total Protein 5.9 L, Albumin 3.6, Globulin 2.3, Albumin/Globulin Ratio 1.6 02/04/18 1218: CBC w Diff NO MAN DIFF REQ, RBC 4.15 L, MCV 77.1 L, MCH 25.0 L, MCHC 32.5 L, RDW 19.1 H, MPV 7.3 L, Gran % 82.6 H, Lymphocytes % 13.1 L, Monocytes % 3.9, Eosinophils % 0.1, Basophils % 0.3, Absolute Granulocytes 11.1 H, Absolute Lymphocytes 1.8, Absolute Monocytes 0.5, Absolute Eosinophils 0, Absolute Basophils 0 Vital Signs Date Time Temp Pulse Resp B/P B/P Pulse O2 O2 Flow FiO2 Mean Ox Delivery Rate 02/05 1018 97.2 85 18 125/63 02/05 1018 97.2 85 18 125/63 02/05 0825 97.2 85 18 125/63 99 Room Air 02/05 0632 97.3 80 18 129/78 98 Room Air 02/05 0018 97.7 81 18 134/80 100 Room Air 02/04 2241 98.1 70 16 120/60 02/04 2031 70 16 120/60 97 Room Air 02/04 1508 98.1 84 18 116/58 100 Room Air 03/14 1210 Room Air 02/04 1153 96.9 83 18 137/69 92 Room Air
--- NOTE | 2018-02-05 13:25 | Patient Discharge Instructions ---
Discharge Instructions General Discharge Information Special Instructions: - Please follow up with your shank sorter Dr. Stearns within 1-2 weeks of discharge. - Please follow up with your primary care physician within 1-2 weeks of discharge. Inform your primary care physician of this admission to [facility]. - Continue your current medications per discharge instructions. - Please watch for these problems: Fever, Chills, Nausea, Vomiting, Shortness of Breath, Productive Cough, Chest Pain/Discomfort, Abdominal Pain, Active Bleeding or Bloody urine/stool. Diet Continue normal diet: Yes Recommended Diet: Heart Healthy Activity Full Activity/No Limits: Yes Acute Coronary Syndrome Inclusion Criteria At DC or during hospital stay patient has or had the following: ACS DIAGNOSIS No Discharge Core Measures Meds if any: Prescribed or Continued at Discharge Meds if any: NOT Prescribed or Continued at Discharge Congestive Heart Failure Inclusion Criteria At DC or during hospital stay patient has or had the following: CHF DIAGNOSIS No Discharge Core Measures Meds if any: Prescribed or Continued at Discharge Meds if any: NOT Prescribed or Continued at Discharge Cerebrovascular accident Inclusion Criteria At DC or during hospital stay patient has or had the following: CVA/TIA Diagnosis No Discharge Core Measures Meds if any: Prescribed or Continued at Discharge Meds if any: NOT Prescribed or Continued at Discharge Venous thromboembolism Inclusion Criteria VTE Diagnosis No VTE Type NONE VTE Confirmed by (Test) NONE Discharge Core Measures - Per Current guidelines, there needs to be overlap - treatment for the first 5 days of Warfarin therapy. - If discharged on Warfarin prior to 5 days of - overlap therapy, the patient will need to be - assessed for post discharge needs including - *Post discharge parental anticoagulation - *Warfarin and/or parental anticoagulation education - *Follow up date to check INR post discharge At least 5 days overlap therapy as Inpatient No Meds if any: Prescribed or Continued at Discharge Note: Overlap Therapy is Warfarin and Anticoagulant Meds if any: NOT Prescribed or Continued at Discharge
--- NOTE | 2018-02-06 08:25 | PN- Pulmonary ---
Subjective HPI/Critical Care Issues: Shortness breath is improved however the patient is not ambulated Objective Current Medications: Current Medications Sig/Heena Start time Last Medication Dose Route Stop Time Status Admin Acetaminophen 650 MG Q6P PRN 02/04 1800 AC PO Albuterol Sulfate 3 ML EVERY 4 HRS/AWAKE 02/05 1600 AC 02/06 INH 0801 Albuterol Sulfate 3 ML TID 02/05 1134 DC 02/05 INH 1152 Aspirin Buffered 81 MG DAILY 02/05 1000 AC 02/05 PO 1018 Atorvastatin Calcium 20 MG QPM 02/04 2200 AC 02/05 PO 2129 Budesonide/ 2 PUF BID 02/04 2200 AC 02/05 Formoterol Fumarate INH 2129 Cholecalciferol 1,000 IU DAILY 02/05 1000 AC 02/05 PO 1018 Diltiazem HCl 120 MG DAILY 02/05 1000 AC 02/05 PO 1018 Furosemide 40 MG 7:30 AM, & 4:30 PM 02/06 0730 AC 02/06 PO 0636 Furosemide 0 .STK-MED ONE 02/06 0559 DC PO Furosemide 40 MG DAILY 02/05 1000 DC 02/05 IV 1018 Losartan Potassium 50 MG BID 02/04 2200 AC 02/05 PO 2129 Methylprednisolone 40 MG Q8 02/04 2200 DC 02/05 IV 0610 Metoprolol Succinate 25 MG DAILY 02/05 1000 AC 02/05 PO 1018 Omeprazole 0 .STK-MED ONE 02/06 0559 DC PO Omeprazole 20 MG DAILY AC 02/05 0700 AC 02/06 PO 0617 Prednisone 0 .STK-MED ONE 02/05 1710 DC PO Prednisone 60 MG DAILY 02/05 1600 AC 02/05 PO 1707 Rivaroxaban 15 MG DAILY 02/05 1000 AC 02/05 PO 1018 Vital Signs & I&O Last 24 Hrs of Vitals and I&O: Vital Signs Date Time Temp Pulse Resp B/P B/P Pulse O2 O2 Flow FiO2 Mean Ox Delivery Rate 02/06 0801 98 02/06 0618 98.3 85 18 110/60 99 Room Air 02/05 2339 98.6 82 18 116/62 97 Room Air 02/05 2130 97.6 92 18 150/84 99 Room Air 02/05 2129 92 18 150/84 02/05 1833 97.9 94 20 171/76 98 Room Air 02/05 1630 98 02/05 1511 97.1 93 19 122/59 99 Room Air 02/05 1413 96 18 134/80 100 Room Air 02/05 1345 Room Air 02/05 1152 98 02/05 1143 97.1 86 18 114/66 98 02/05 1018 97.2 85 18 125/63 02/05 1018 97.2 85 18 125/63 02/05 0825 97.2 85 18 125/63 99 Room Air Intake & Output 02/06 1600 02/06 0800 02/06 0000 Intake Total Output Total 500 Balance -500 Output, Urine 500 Patient 152 lb Weight Room air oxygen saturation 98% exam for chest shows rare expiratory wheeze on forced expiration cardiac exam shows regular S1 and S2 without murmurs Impression/Plan Impression/Plan Impression/Plan: 87-year-old woman admitted with transient shortness of breath which is resolved Recommendations: Rapidly taper by mouth prednisone. Assess oxygen saturation with ambulation.
--- NOTE | 2018-02-06 08:35 | PN-Observation ---
Observation Note Observation Note _ I have personally examined THOMAS HDZ. her disposition is uncertain at this time. Before a determination can be made, she requires continued observation for the following reasons [SOB]. Assessment/Plan Medical Assessment: Ms. Hdz is a 87-year-old female with PMH significant for A.fib on anticoagulation, chronic diastolic CHF on Lasix, HTN, HLD, COPD not on home oxygen, NSCLC and carcinoid tumor, with B/L lobectomies and s/p radiation for a lingular nodule, and radiation pneumonitis, multinodular thyroid gland, GERD, osteoarthritis, healing left lower extremity wound who presents to the hospital for evaluation of acute shortness of breath and sudden onset of weakness. Leukocytosis likely due to use of steroids. Problem list #HFpEF #COPD, w/ residual bronchospasm #PMH of A-fib on Xarelto,HTN, HLD, GERD,Chronic LLE wound Plan - Per pulm consult, will fast taper PO prednisone 40mg and sent home on tapering. - TRC/Nebs/O2 as needed - Pending Cardiology consult for lasix use/CHF - Wound care cleansing daily with Xeroform and leg elevation - Continued all other home meds DVT prophylaxis Xarelto + ALPS CHF Diet Full Code Problem List: 1. CHF (congestive heart failure) 2. COPD (chronic obstructive pulmonary disease) Subjective Follow-up For: #HFpEF #COPD #Bronchospasm #PMH of A-fib on Xarelto,HTN, HLD, GERD,Chronic LLE wound Tele-Events Since Last Visit: NSR Subjective: No overnight event. patient felt no SOB overnight and slept ok. No sother specific complaint. Review of Systems Constitutional: Reports: see HPI. Objective Last 24 Hrs of Vital Signs/I&O Vital Signs Date Time Temp Pulse Resp B/P B/P Pulse O2 O2 Flow FiO2 Mean Ox Delivery Rate 02/06 0801 98 02/06 0618 98.3 85 18 110/60 99 Room Air 02/05 2339 98.6 82 18 116/62 97 Room Air 02/05 2130 97.6 92 18 150/84 99 Room Air 02/05 2129 92 18 150/84 02/05 1833 97.9 94 20 171/76 98 Room Air 02/05 1630 98 02/05 1511 97.1 93 19 122/59 99 Room Air 02/05 1413 96 18 134/80 100 Room Air 02/05 1345 Room Air 02/05 1152 98 02/05 1143 97.1 86 18 114/66 98 02/05 1018 97.2 85 18 125/63 02/05 1018 97.2 85 18 125/63 Intake & Output 02/06 1600 02/06 0800 02/06 0000 Intake Total Output Total 500 Balance -500 Output, Urine 500 Patient 68.946 kg Weight Physical Exam General Appearance: Alert, Oriented X3, Cooperative, No Acute Distress Cardiovascular: Regular Rate Lungs: Clear to Auscultation, Normal Air Movement Abdomen: Normal Bowel Sounds, Soft, No Tenderness Neurological: Normal Speech Extremities: No Edema, Normal Pulses Current Medications: Current Medications Sig/Heena Start time Last Medication Dose Route Stop Time Status Admin Acetaminophen 650 MG Q6P PRN 02/04 1800 AC PO Albuterol Sulfate 3 ML EVERY 4 HRS/AWAKE 02/05 1600 AC 02/06 INH 0801 Albuterol Sulfate 3 ML TID 02/05 1134 DC 02/05 INH 1152 Aspirin Buffered 81 MG DAILY 02/05 1000 AC 02/05 PO 1018 Atorvastatin Calcium 20 MG QPM 02/04 2200 AC 02/05 PO 2129 Budesonide/ 2 PUF BID 02/04 2200 AC 02/05 Formoterol Fumarate INH 2129 Cholecalciferol 1,000 IU DAILY 02/05 1000 AC 02/05 PO 1018 Diltiazem HCl 120 MG DAILY 02/05 1000 AC 02/05 PO 1018 Furosemide 40 MG 7:30 AM, & 4:30 PM 02/06 0730 AC 02/06 PO 0636 Furosemide 0 .STK-MED ONE 02/06 0559 DC PO Furosemide 40 MG DAILY 02/05 1000 DC 02/05 IV 1018 Losartan Potassium 50 MG BID 02/04 2200 AC 02/05 PO 2129 Methylprednisolone 40 MG Q8 02/04 2200 DC 02/05 IV 0610 Metoprolol Succinate 25 MG DAILY 02/05 1000 AC 02/05 PO 1018 Omeprazole 0 .STK-MED ONE 02/06 0559 DC PO Omeprazole 20 MG DAILY AC 02/05 0700 AC 02/06 PO 0617 Prednisone 40 MG DAILY 02/06 1000 UNVr PO Prednisone 0 .STK-MED ONE 02/05 1710 DC PO Prednisone 60 MG DAILY 02/05 1600 DC 02/05 PO 1707 Rivaroxaban 15 MG DAILY 02/05 1000 AC 02/05 PO 1018
[2018-02-06 10:05] VITALS: BP 120/74
[2018-02-06] MEDS ORDERED: PREDNISONE10 M2 PO ×2 (10:23→10:30)
--- NOTE | 2018-02-06 10:30 | PN- Att Addend ---
Attending Addendum Attending Brief Note Feeling and looking much better today not short of breath ambulated with PT to saturation 92% on room air with walking with her other vital signs are stable. No major changes on physical her wound was checked by the wound nurse patient will be going home today tapering down the steroids were to continue other treatments to follow with cardiology pulmonary myself follow with the CHF/COPD clinic and see the CMR. Intake & Output 02/06 1600 02/06 0400 02/05 1600 02/05 0400 02/04 1600 02/04 0400 Intake Total Output Total 300 200 500 900 Balance -300 -200 -500 -900 Output, Urine 300 200 500 900 Patient 152 lb 152 lb Weight Weight Reported by Patient Measurement Method Current Medications Sig/Heena Start time Last Medication Dose Route Stop Time Status Admin Acetaminophen 650 MG Q6P PRN 02/04 1800 AC PO Albuterol Sulfate 3 ML EVERY 4 HRS/AWAKE 02/05 1600 AC 02/06 INH 0801 Albuterol Sulfate 3 ML TID 02/05 1134 DC 02/05 INH 1152 Aspirin Buffered 81 MG DAILY 02/05 1000 AC 02/06 PO 1005 Atorvastatin Calcium 20 MG QPM 02/04 2200 AC 02/05 PO 2129 Budesonide/ 2 PUF BID 02/04 2200 AC 02/06 Formoterol Fumarate INH 1005 Cholecalciferol 1,000 IU DAILY 02/05 1000 AC 02/06 PO 1005 Diltiazem HCl 120 MG DAILY 02/05 1000 AC 02/06 PO 1005 Furosemide 40 MG 7:30 AM, & 4:30 PM 02/06 0730 AC 02/06 PO 0636 Furosemide 0 .STK-MED ONE 02/06 0559 DC PO Furosemide 40 MG DAILY 02/05 1000 DC 02/05 IV 1018 Losartan Potassium 50 MG BID 02/04 2200 AC 02/06 PO 1005 Methylprednisolone 40 MG Q8 02/04 2200 DC 02/05 IV 0610 Metoprolol Succinate 25 MG DAILY 02/05 1000 AC 02/06 PO 1005 Omeprazole 0 .STK-MED ONE 02/06 0559 DC PO Omeprazole 20 MG DAILY AC 02/05 0700 AC 02/06 PO 0617 Prednisone 40 MG DAILY 02/06 1000 AC 02/06 PO 1005 Prednisone 0 .STK-MED ONE 02/05 1710 DC PO Prednisone 60 MG DAILY 02/05 1600 DC 02/05 PO 1707 Rivaroxaban 15 MG DAILY 02/05 1000 AC 02/06 PO 1005 Laboratory Tests 02/05/18 0615: Anion Gap 9, Estimated GFR > 60, BUN/Creatinine Ratio 40.0 H, CBC w Diff NO MAN DIFF REQ, RBC 4.16 L, MCV 76.3 L, MCH 24.7 L, MCHC 32.4 L, RDW 19.2 H, MPV 7.6, Gran % 88.6 H, Lymphocytes % 10.7 L, Monocytes % 0.7 L, Eosinophils % 0, Basophils % 0, Absolute Granulocytes 5.1, Absolute Lymphocytes 0.6 L, Absolute Monocytes 0 L, Absolute Eosinophils 0, Absolute Basophils 0 02/04/18 1550: Troponin I 0.02 02/04/18 1413: D-Dimer High Sensitivty < 200 02/04/18 1221: Anion Gap 9, Estimated GFR > 60, BUN/Creatinine Ratio 28.6 H, Glucose 88, Calcium 9.1, Total Bilirubin 0.9, AST 19, ALT 42, Alkaline Phosphatase 57, Troponin I 0.01, [id number]-M-Pufvgfdbqwm Pept 2080 H, Total Protein 5.9 L, Albumin 3.6, Globulin 2.3, Albumin/Globulin Ratio 1.6 02/04/18 1218: CBC w Diff NO MAN DIFF REQ, RBC 4.15 L, MCV 77.1 L, MCH 25.0 L, MCHC 32.5 L, RDW 19.1 H, MPV 7.3 L, Gran % 82.6 H, Lymphocytes % 13.1 L, Monocytes % 3.9, Eosinophils % 0.1, Basophils % 0.3, Absolute Granulocytes 11.1 H, Absolute Lymphocytes 1.8, Absolute Monocytes 0.5, Absolute Eosinophils 0, Absolute Basophils 0 Vital Signs Date Time Temp Pulse Resp B/P B/P Pulse O2 O2 Flow FiO2 Mean Ox Delivery Rate 02/06 1005 97.7 88 17 120/74 02/06 1005 97.7 88 17 120/74 02/06 1005 97.7 88 17 120/74 99 Room Air 02/06 0801 98 02/06 0618 98.3 85 18 110/60 99 Room Air 02/05 2339 98.6 82 18 116/62 97 Room Air 02/05 2130 97.6 92 18 150/84 99 Room Air 02/05 2129 92 18 150/84 03 1833 97.9 94 20 171/76 98 Room Air 02/05 1630 98 02/05 1511 97.1 93 19 122/59 99 Room Air 02/05 1413 96 18 134/80 100 Room Air 02/05 1345 Room Air 02/05 1152 98 02/05 1143 97.1 86 18 114/66 98
[2018-02-06 11:08] VITALS: BP 114/70
== END 2018-02-06 11:11 ==
LOC: ERH 11:18 → ERHI 15:54
PROVIDERS: Physician Assistant; Student in an Organized Health Care Education/Training Program
DX: J44.1 Chronic obstructive pulmonary disease with (acute) exacerbation (principal); I48.91 Unspecified atrial fibrillation; Z79.01 Long term (current) use of anticoagulants; I11.0 Hypertensive heart disease with heart failure; I50.32 Chronic diastolic (congestive) heart failure; E78.5 Hyperlipidemia, unspecified; K21.9 Gastro-esophageal reflux disease without esophagitis; M19.90 Unspecified osteoarthritis, unspecified site; Z79.82 Long term (current) use of aspirin; G47.00 Insomnia, unspecified; D72.829 Elevated white blood cell count, unspecified; R09.02 Hypoxemia; Z85.110 Personal history of malignant carcinoid tumor of bronchus and lung; Z79.51 Long term (current) use of inhaled steroids
CPT/HCPCS: 6090; 71046; 82436; 93005; 93010; 96374; 96375; 96376; 99291; G0378; J1940; J2920; J2930; J3490

== ENCOUNTER 2018-06-30 08:35 | Inpatient (IN) | payer OTHER, MEDICARE ==
[~2018-06-30] VITALS: Ht 157.5 cm; Wt 76.3 kg
--- NOTE | 2018-06-30 08:45 | ED GENERAL ADULT ---
History of Present Illness General Chief Complaint: Dyspnea (COPD, CHF, Other) Stated Complaint: SOB Source: patient Exam Limitations: no limitations Vital Signs & Intake/Output Vital Signs & Intake/Output Vital Signs Date Time Temp Pulse Resp B/P B/P Pulse O2 O2 Flow FiO2 Mean Ox Delivery Rate 06/30 1732 98 146/72 06/30 1457 98.1 110 20 140/78 98 Nasal 2.0L Cannula 06/30 1453 Nasal 2.0L Cannula 06/30 1355 98.4 100 18 147/65 97 Nasal 2.0L Cannula 06/30 1138 99.3 100 18 162/66 93 Room Air 06/30 0955 97 Room Air Room Air 06/30 0945 94 06/30 0839 98.7 97 20 174/78 97 Room Air Allergies Coded Allergies: adhesive tape (RASH ON SKIN THAT IT TOUCHES 10/22/17) iodine (DAVIS SKIN WHERE APPLIED 10/22/17) povidone-iodine (DAVIS SKIN WHERE IT IS APPLIED 10/22/17) shellfish derived (HIVES ALL OVER 10/22/17) propoxyphene (GI UPSET 10/22/17) Reconcile Medications Albuterol Sulfate 2.5 MG/3 ML (0.083 %) VIAL.NEB 1 Vial INH/JULIO BID COPD ( Reported) Albuterol Sulfate (Ventolin Hfa) 90 MCG HFA.AER.AD 2 PUF INH Q4-6 PRN PRN SHORTNESS OF BREATH Aspirin (Ecotrin*) 81 MG TABLET.DR 1 TAB PO DAILY HEART (Reported) Atorvastatin Calcium (Lipitor) 20 MG TABLET 1 TAB PO QPM CHOLESTEROL ( Reported) Budesonide/Formoterol Fumarate (Symbicort 160-4.5 Mcg Inhaler) 160 MCG-4.5 MCG/ ACTUATION HFA.AER.AD 2 PUF INH BID COPD (Reported) Cholecalciferol (Vitamin D3) (Vitamin D3) 1,000 UNIT CAPSULE 1 CAP PO DAILY HEALTH SUPPLEMENT (Reported) Diltiazem HCl (Diltiazem 24HR Cd) 120 MG CAP.ER.24H 1 CAP PO DAILY HEART/BP ( Reported) Esomeprazole Magnesium (Nexium) 20 MG CAPSULE.DR 1 CAP PO DAILY ACID REFLUX ( Reported) Fluticasone Propionate 50 MCG/ACTUATION SPRAY.SUSP 2 SPRAY NASB DAILY ALLERGIES (Reported) Furosemide 40 MG TABLET 1 TAB PO BID DIURETIC (Reported) Guaifenesin (Mucinex) 1,200 MG TAB.ER.12H 1 TAB PO BID ALLERGIES (Reported) Losartan Potassium 100 MG TABLET 0.5 TAB PO BID BP (Reported) Magnesium Oxide 400 MG TABLET 1 TAB PO DAILY SUPPLEMENT (Reported) Metoprolol Succinate 25 MG TAB 1 TAB PO DAILY BP (Reported) [place]-3 Acid Ethyl Esters (Lovaza) 1 GRAM CAPSULE 1 CAP PO BID CHOLESTEROL/ TRIGLYCERIDES (Reported) Potassium Chloride 20 MEQ TAB.ER.PRT 1 TAB PO DAILY SUPPLEMENT (Reported) Rivaroxaban (Xarelto) 15 MG TABLET 1 TAB PO DAILY afib . Triage Nurses Notes Reviewed? yes Onset: Abrupt Duration: day(s): Timing: recent history HPI: 06/30/18 9:30 AM 87-year-old female presents to the emergency department with cough and difficulty breathing. She denies any chest pain. No fever. She has a history of COPD. She also has history of lung cancer. She never smoked. Past History Travel History Traveled to [place] past 21 day No Medical History Any Pertinent Medical History? 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 No Review of Systems Review of Systems Constitutional: Denies: fever. EENTM: Denies: visual changes. Respiratory: Reports: cough, short of breath. Cardiovascular: Denies: chest pain. GI: Denies: abdominal pain. Genitourinary: Reports: no symptoms. Musculoskeletal: Reports: no symptoms. Skin: Reports: no symptoms. Neurological/Psychological: Reports: no symptoms. Hematologic/Endocrine: Reports: no symptoms. Immunologic/Allergic: Reports: no symptoms. Physical Exam Physical Exam General Appearance: alert, awake, anxious, moderate distress Head: atraumatic, normal appearance Eyes: Bilateral: normal appearance, PERRL, EOMI. Ears, Nose, Throat: normal pharynx, normal ENT inspection Neck: normal inspection, supple, full range of motion Respiratory: chest non-tender, decreased breath sounds Cardiovascular: irregularly irregular Peripheral Pulses: 4+ radial (R), 4+ radial (L) Gastrointestinal: soft, non-tender Back: decreased range of motion Extremities: no edema Neurologic/Psych: no motor/sensory deficits, awake, alert, oriented x 3 Skin: intact, normal color, warm/dry Core Measures ACS in differential dx? No CVA/TIA Diagnosis: No Sepsis Present: No Sepsis Focused Exam Completed? No Progress Differential Diagnoses I considered the following diagnoses in my evaluation of the patient: [CHF, pneumonia, pneumothorax] Plan of Care: Orders Procedure Date/time Status Heart Healthy Diet 07/01 B Active CBC WITHOUT DIFFERENTIAL 07/01 06 Active BASIC ELECTROLYTES PLUS BUN&CR 07/01 06 Active Heart Healthy Diet 06/30 D Complete TRC EVALUATION (GEN) 06/30 1628 Active Pathway - chart 06/30 1628 Active House Staff 06/30 1628 Active Code Status 06/30 1628 Active Weight 06/30 1446 Active Vital Signs 06/30 1446 Active Teach/Educate 06/30 1446 Active Pain Treatment and Response 06/30 1446 Active Nutritional Intake, Monitor 06/30 1446 Active Isolation 06/30 1446 Active Intake & Output 06/30 1446 Active Patient Care Conference 06/30 1446 Active Activity/Ambulation 06/30 1446 Active Intake & Output 06/30 1416 Active Patient Data 06/30 1309 Active ED Holding Orders 06/30 1236 Active Admit to inpatient 06/30 1236 Active Vital Signs 06/30 1236 Active Code Status 06/30 1236 Complete Add-on Test (ER Only) 06/30 1205 Active B-TYPE NATRIURETIC PEP (BNP) 06/30 0943 Complete Saline Lock 08/07 0926 Active TROPONIN LEVEL 06/30 926 Complete COMPREHENSIVE METABOLIC PANEL 06/30 926 Complete CBC WITHOUT DIFFERENTIAL 06/30 926 Complete EKG 06/30 836 Active AEROSOL (GEN) 06/30 UNK Complete VTE Mechanical Prophylaxis 06/30 UNK Active Current Medications Sig/Heena Start time Last Medication Dose Stop Time Status Admin Methylprednisolone 40 MG Q12 07/01 0900 AC (Solumedrol) Albuterol Sulfate 3 ML BID 06/30 2100 AC (Proventil) Atorvastatin Calcium 20 MG QPM 06/30 2100 AC (Lipitor) Budesonide/ 2 PUF BID 06/30 2100 AC Formoterol Fumarate (Symbicort) Fluticasone 2 SPRAY AT BEDTIME 06/30 2100 AC Propionate (Flonase) Guaifenesin 1,200 MG Q12 06/30 2100 AC (Mucinex) Losartan Potassium 50 MG BID 06/30 2100 AC (Cozaar) Acetaminophen 650 MG Q6PRN PRN 06/30 1630 AC (Tylenol) Albuterol Sulfate 2 PUF Q4-6 PRN PRN 06/30 1615 AC (Ventolin) Magnesium Oxide 400 MG DAILY 06/30 161 AC 06/30 (Mag-Ox) 1732 Metoprolol Succinate 25 MG DAILY 06/30 1610 AC 06/30 (Toprol XL) 1732 Rivaroxaban 15 MG DAILY 06/30 1610 AC 06/30 (Xarelto) 1732 Diltiazem HCl 120 MG DAILY 06/30 1608 AC 06/30 (Cardizem CD) 1732 Omeprazole 20 MG DAILY AC 06/30 1608 AC 06/30 (Prilosec) 1732 Aspirin Buffered 81 MG DAILY 06/30 1607 AC 06/30 (Ecotrin) 1732 Laboratory Tests 06/30/18 0943: Anion Gap 7, Estimated GFR > 60, BUN/Creatinine Ratio 15.7, Glucose 120 H, Calcium 8.8, Total Bilirubin 0.9, AST 20, ALT 29, Alkaline Phosphatase 65, Troponin I < 0.01, [id number] Pept 2410 H, Total Protein 6.1 L, Albumin 3.5, Globulin 2.6, Albumin/Globulin Ratio 1.3, CBC w Diff NO MAN DIFF REQ, RBC 4.11 L, MCV 73.2 L, MCH 24.1 L, MCHC 32.9 L, RDW 18.6 H, MPV 7.9, Gran % 81.6 H, Lymphocytes % 10.0 L, Monocytes % 8.0, Eosinophils % 0.1, Basophils % 0.3, Absolute Granulocytes 8.1 H, Absolute Lymphocytes 1.0 L, Absolute Monocytes 0.8 H, Absolute Eosinophils 0, Absolute Basophils 0 Initial ED EKG: AFIB, NO CHANGE Comments: PATIENT: THOMAS HDZ PRESENT AGE: 87 PATIENT ACCOUNT NO: [id number] : 30 LOCATION: [facility] ORDERING PHYSICIAN: Tevin Walker DO SERVICE DATE: 06/30/18 EXAM TYPE: RAD - XRY-PORTABLE CHEST XRAY EXAMINATION: XR PORTABLE CHEST CLINICAL INFORMATION: Shortness of breath. COMPARISON: Chest radiograph dated 02/17/2018. Chest radiograph dated 01/23/2018. TECHNIQUE: Portable frontal view of the chest was obtained. FINDINGS: The cardiac silhouette remains normal in size. There is calcific atherosclerotic disease of the aorta. Both lungs demonstrate diffuse hazy opacities, new from the prior examination. There is unchanged left mid lung scarring. There is blunting of the costophrenic angles, left greater than right, likely representing pleural effusions. No pneumothorax. Degenerative changes of the spine. IMPRESSION: Diffuse bilateral airspace opacities representing either pulmonary edema or multifocal pneumonia. This finding is new compared with the prior chest radiograph from 01/28/2018. There are bilateral pleural effusions, left larger than right. DICTATED BY: Quincy Martinze MD DATE/TIME DICTATED:06/30/18942 BARREL POLISHER INSIDE:GLADYS DATE/TIME TRANSCRIBED:06/30/18942 CONFIDENTIAL, DO NOT COPY WITHOUT APPROPRIATE AUTHORIZATION. <Electronically signed in Other Vendor System> SIGNED BY: Quincy Martinez MD 06/30/18 0951 Departure Departure Disposition: STILL A PATIENT Condition: Stable Clinical Impression Primary Impression: CHF (congestive heart failure) Referrals: Antonio Lopez MD (PCP/Family) Departure Forms: Customer Survey General Discharge Information Comments Admission Note Spoke With: Antonio Lopez MD Documentation of Exam: Documentation of any treatments & extenuating circumstances including Concerns Regarding Discharge (functional status, medication knowledge or non-compliance, living conditions, etc.) that warrant an admission rather than observation: [The patient needs admission for IV diuresis, telemetry monitoring, cardiology consultation. I spoke with Dr. Cano who is covering for Dr. Stearns and will see the patient in consult] Critical Care Note Critical Care Note Critical Care Time: non-applicable
[2018-06-30 09:50] LABS: ABSOLUTE BASOPHIL COUNT 0 /CUMM (0.0-0.2); ABSOLUTE EOSINOPHIL COUNT 0 /CUMM (0.0-0.7); ABSOLUTE GRANULOCYTE CT 8.1 /CUMM (1.4-6.5); ABSOLUTE MONOCYTE COUNT 0.8 /CUMM (0.10-0.60); BASOPHIL % 0.3 % (0.0-2.0); EOSINOPHIL % 0.1 % (0-5); GRANULOCYTE % 81.6 % (42.2-75.2); HEMATOCRIT 30.1 % (37-47); MEAN CORPUSCULAR HGB 24.1 PG (27.0-31.0); MEAN CORPUSCULAR HGB CONC 32.9 G/DL (33.0-37.0); MEAN CORPUSCULAR VOLUME 73.2 FL (81.0-99.0); MEAN PLATELET VOLUME 7.9 FL (7.4-10.4); PLATELET COUNT 282 /CUMM (130-400); RBC DISTRIBUTION WIDTH 18.6 % (11.5-14.5); RED BLOOD CELL CT 4.11 /CUMM (4.20-5.40); WHITE BLOOD CELL COUNT 9.9 /CUMM (4.8-10.8)
--- NOTE | 2018-06-30 09:51 | RADIOLOGY REPORT ---
EXAMINATION: XR PORTABLE CHEST CLINICAL INFORMATION: Shortness of breath. COMPARISON: Chest radiograph dated 02/17/2018. Chest radiograph dated 01/23/2018. TECHNIQUE: Portable frontal view of the chest was obtained. FINDINGS: The cardiac silhouette remains normal in size. There is calcific atherosclerotic disease of the aorta. Both lungs demonstrate diffuse hazy opacities, new from the prior examination. There is unchanged left mid lung scarring. There is blunting of the costophrenic angles, left greater than right, likely representing pleural effusions. No pneumothorax. Degenerative changes of the spine. IMPRESSION: Diffuse bilateral airspace opacities representing either pulmonary edema or multifocal pneumonia. This finding is new compared with the prior chest radiograph from 01/28/2018. There are bilateral pleural effusions, left larger than right.
--- NOTE | 2018-06-30 13:41 | History & Physical ---
GerryjuanDomingo 06/30/18 1333: General Information and HPI History of Present Illness: Patient is a very pleasent 87 year old female with a PMH of COPD, 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 According to the patient, she has been having worsening shortness of breath starting 3 days ago which not only worsens with activity but at rest as well. She regularly goes to her CHF and COPD clinic at [facility] where she gets her diuretics and nebs/inhalers to keep her symptoms in check. She was fairly active this past month and was going out visiting her friends and family until and her last visiti at the wellness clinic was this past Friday (7 days ago). After lunch with her daughter she returned home and noticed some decreased appetite. She began using her albuterol nebulizer 3 times daily and inhaler more for these past few days. Patient also reports wheezing. She has a chronic cough with clear colored sputum, which pt says has not worsened recently. She usually uses two pillow at night to sleep. Since this weekend however, she has had trouble sleeping at night due to shortness of breath. She described it as gasping for air but felt "like the air can't get inside." She believes she has some increases lower exremity edema recently as well. She denies any recent fever, chills, chest pain, palpitations, nausea, vomiting. She follows up with Dr. Horner and Dr. Stearns as an outpatient. Allergies/Medications Allergies: Coded Allergies: adhesive tape (RASH ON SKIN THAT IT TOUCHES 10/22/17) iodine (DVAIS SKIN WHERE APPLIED 10/22/17) povidone-iodine (DAVIS SKIN WHERE IT IS APPLIED 10/22/17) shellfish derived (HIVES ALL OVER 10/22/17) propoxyphene (GI UPSET 10/22/17) Home Med list Albuterol Sulfate 2.5 MG/3 ML (0.083 %) VIAL.NEB 1 Vial INH/JULIO BID COPD ( Reported) Albuterol Sulfate (Ventolin Hfa) 90 MCG HFA.AER.AD 2 PUF INH Q4-6 PRN PRN SHORTNESS OF BREATH Aspirin (Ecotrin*) 81 MG TABLET.DR 1 TAB PO DAILY HEART (Reported) Atorvastatin Calcium (Lipitor) 20 MG TABLET 1 TAB PO QPM CHOLESTEROL ( Reported) Budesonide/Formoterol Fumarate (Symbicort 160-4.5 Mcg Inhaler) 160 MCG-4.5 MCG/ ACTUATION HFA.AER.AD 2 PUF INH BID COPD (Reported) Cholecalciferol (Vitamin D3) (Vitamin D3) 1,000 UNIT CAPSULE 1 CAP PO DAILY HEALTH SUPPLEMENT (Reported) Diltiazem HCl (Diltiazem 24HR Cd) 120 MG CAP.ER.24H 1 CAP PO DAILY HEART/BP ( Reported) Esomeprazole Magnesium (Nexium) 20 MG CAPSULE.DR 1 CAP PO DAILY ACID REFLUX ( Reported) Fluticasone Propionate 50 MCG/ACTUATION SPRAY.SUSP 2 SPRAY NASB DAILY ALLERGIES (Reported) Furosemide 40 MG TABLET 1 TAB PO BID DIURETIC (Reported) Guaifenesin (Mucinex) 1,200 MG TAB.ER.12H 1 TAB PO BID ALLERGIES (Reported) Losartan Potassium 100 MG TABLET 0.5 TAB PO BID BP (Reported) Magnesium Oxide 400 MG TABLET 1 TAB PO DAILY SUPPLEMENT (Reported) Metoprolol Succinate 25 MG TAB 1 TAB PO DAILY BP (Reported) [employer] Acid Ethyl Esters (Lovaza) 1 GRAM CAPSULE 1 CAP PO BID CHOLESTEROL/ TRIGLYCERIDES (Reported) Potassium Chloride 20 MEQ TAB.ER.PRT 1 TAB PO DAILY SUPPLEMENT (Reported) Rivaroxaban (Xarelto) 15 MG TABLET 1 TAB PO DAILY afib . 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 spouse Services at Home: None Primary Language: Grenadian Smoking Status: Never Smoked ETOH Use: denies use Illicit Drug Use: denies illicit drug use Living Will? yes Functional Ability ADLs Independent: dressing, eating, toileting, bathing. Ambulation: independent IADLs Independent: shopping, housework, finances, food prep, telephone, transportation , medication admin. Review of Systems Review of Systems Constitutional: Reports: see HPI. Exam & Diagnostic Data Last 24 Hrs of Vital Signs/I&O Vital Signs Date Time Temp Pulse Resp B/P B/P Pulse O2 O2 Flow FiO2 Mean Ox Delivery Rate 06/30 2307 Nasal 2.0L Cannula 06/30 2155 Nasal 2.0L Cannula 06/30 2132 97.7 97 20 132/60 98 Nasal 5.0L Cannula 06/30 1732 98 146/72 06/30 1457 98.1 110 20 140/78 98 Nasal 2.0L Cannula 06/30 1453 Nasal 2.0L Cannula 06/30 1355 98.4 100 18 147/65 97 Nasal 2.0L Cannula 06/30 1138 99.3 100 18 162/66 93 Room Air 06/30 0955 97 Room Air Room Air 06/30 0945 94 06/30 0839 98.7 97 20 174/78 97 Room Air Intake & Output 07/01 0800 07/01 0000 06/30 1600 Intake Total 50 180 Output Total Balance 50 180 Intake, Oral 50 180 Patient 164 lb 161 lb Weight Weight Bed scale Bed scale Measurement Method Physical Exam General Appearance Alert, Oriented X3, Cooperative, No Acute Distress Skin Temp/Moisture Exam: Warm/Dry Sepsis Skin Exam (color): Normal for Ethnicity HEENT Atraumatic, PERRLA, EOMI Neck Supple Cardiovascular Normal S1, Normal S2, systolic murmur Lungs light bibaslar crackles Abdomen Soft, No Tenderness Neurological Normal Speech Extremities trace edema BL lower extremities Vascular Normal Pulses Last 24 Hrs of Labs/Jem: Laboratory Tests 06/30/18 0943: Anion Gap 7, Estimated GFR > 60, BUN/Creatinine Ratio 15.7, Glucose 120 H, Calcium 8.8, Total Bilirubin 0.9, AST 20, ALT 29, Alkaline Phosphatase 65, Troponin I < 0.01, [id number] Pept 2410 H, Total Protein 6.1 L, Albumin 3.5, Globulin 2.6, Albumin/Globulin Ratio 1.3, CBC w Diff NO MAN DIFF REQ, RBC 4.11 L, MCV 73.2 L, MCH 24.1 L, MCHC 32.9 L, RDW 18.6 H, MPV 7.9, Gran % 81.6 H, Lymphocytes % 10.0 L, Monocytes % 8.0, Eosinophils % 0.1, Basophils % 0.3, Absolute Granulocytes 8.1 H, Absolute Lymphocytes 1.0 L, Absolute Monocytes 0.8 H, Absolute Eosinophils 0, Absolute Basophils 0 Assessment/Plan Assessment: Vitals T 98.7, HR 97, RR 20, BP 174/78 and O2 97% on room air. Labs were significant for: proBNP 2410. CXR showed diffuse bilateral airspace opacities: pulmonary edema vs multifocal pneumonia. Problem List: 1. Shortness of breath dt CHF vs COPD exacerbation with history of lung cancer 2. Chronic medical conditions - Admit to telemetry floor - IV Lasix 40 Q12 - Solu-Medrol 40 mg Q12 - Cardiology consult - Pulmonology consult - Strict in's and out's and daily weights - Eval with TRC and give Nebs prn - Supplemental oxygen prn - CBC and BEP - Continue home meds DVT ppx; ALPS and Xarelto Full Code As Ranked By This Provider Problem List: 1. Dyspnea 2. COPD (chronic obstructive pulmonary disease) 3. CHF (congestive heart failure) Core Measures/Misc (08/10) Acute Coronary Syndrome ACS Diagnosis: No Congestive Heart Failure Congestive Heart Failure Diagnosis No Cerebrovascular Accident CVA/TIA Diagnosis: No VTE (View Protocol) VTE Risk Factors Age>40 No Mechanical VTE Prophylaxis d/t N/A MechProphylax Ordered No VTE Pharm Prophylaxis d/t Other Sepsis (View protocol) Sepsis Present: No If YES complete Sepsis Event Note If YES complete Sepsis Event Note Miranda HALL,Veronique 06/30/18 1359: Core Measures/Misc (08/10) Sepsis (View protocol) If YES complete Sepsis Event Note If YES complete Sepsis Event Note Resident Review Statement Resident Statement: examined this patient, discussed with general intern, agreed with general intern, reviewed EMR data (avail), discussed with nursing, reviewed images Other Findings: Ms. Hernandez is an 87 year old woman with a history of COPD, non-small cell lung cancer and carcinoid tumor, with bilateral lower lobectomies and s/p radiation for a lingular nodule, and radiation pneumonitis, multinodular thyroid gland, GERD, HTN, diastolic dysfunction, and a recent diagnosis of atrial fibrillation on Xarelto presents with worsening shortness of breath starting yesterday. According to the patient, she could not sleep last night because of shortness of breath, and had to wake up multiple times. She has a chronic cough which has not worsened recently with production of clear colored sputum. Also reports wheezing. Denies any fever/chills. She uses 2 pillows at night but feels like she has to sleep more propped up because of worsening dyspnea. Also noticed lower extremity edema. She follows up with Dr. Horner and Dr. Stearns as an outpatient. She also follows up with the CHF clinic, last wrist was on Friday when she was given IV Lasix. Vitals on admission were temperature 98.7, heart rate 97, respiratory rate 20, BP 174/78 and O2 sats 97% on room air. Labs were significant for sodium 136 and proBNP 2410. CXR showed diffuse bilateral airspace opacities which could be either pulmonary edema or multifocal pneumonia. Problem List; 1. Shortness of breath could be multifactorial from CHF and COPD exacerbation with history of lung cancer 2. Chronic medical conditions - We'll admit the patient to telemetry floor - Patient was given IV Lasix 40 mg in the ER, will continue IV Lasix 40 twice a day. - Cardiology consult - Strict in's and out's and daily weights - Patient was also given Solu-Medrol 125 mg in the ER, will continue Solu-Medrol 40 mg every 8. - Pulm consult in a.m. - TRC evaluation - Supplemental oxygen as needed - Repeat CBC and BP in a.m. - Continue home medications. DVT Prophylaxis; ALPS and Xarelto Patient is full code
[2018-06-30 14:57] VITALS: BP 140/78
--- NOTE | 2018-06-30 17:34 | Admission Certification ---
Admission Certification Certification Statement - As attending physician, I certify that at the time of - admission, based on clinical presentation, severity of - symptoms, need for further diagnostic testing and - therapeutic interventions, and risk of adverse outcomes - without in-hospital treatment, in my clinical assessment, - this patient requires an acute hospital stay for a minimum - of two nights or longer. I have also considered psychsocial - factors such as support system, advanced age, financial - issues, cognitive issues, and failed out-patient treatments, - past re-admission history, safety of patient, and lack of - compliance as applicable. Specific rationale supporting this admission is: Shortness of breath combination of CHF and exacerbation of her COPD
--- NOTE | 2018-06-30 17:40 | PN- Att Addend ---
Attending Addendum Attending Brief Note 87-year-old white female who looks younger than her age with many comorbidities. She goes periodically to the CHF/COPD clinic, was doing relatively well until a few days ago when she again started progressively getting worse short of breath with exertion made her come to the emergency room in some distress, after emergency treatments feels a little better Temp max 99 4. Chest x-ray shows what neither looks like acute pulmonary edema or multiple infiltrates and some pleural effusions BNP 2410. Troponin was negative. Patient was admitted will have cardiology and pulmonary check the patient in the a.m. Will be treated for CHF and exacerbation of COPD. Gentle diuresis IV steroids and respiratory therapy etc. follow-up labs and chest x-ray in a.m.. Current Medications Sig/Heena Start time Last Medication Dose Route Stop Time Status Admin Acetaminophen 650 MG Q6PRN PRN 06/30 1630 AC PO Albuterol Sulfate 3 ML BID 06/30 2100 AC INH Albuterol Sulfate 2 PUF Q4-6 PRN PRN 06/30 1615 AC INH Albuterol Sulfate 3 ML ONCE ONE 06/30 930 DC 06/30 INH 06/30 0931 0944 Aspirin Buffered 81 MG DAILY 06/30 1607 AC 06/30 PO 1732 Atorvastatin Calcium 20 MG QPM 06/30 2100 AC PO Budesonide/ 2 PUF BID 06/30 2100 AC Formoterol Fumarate INH Diltiazem HCl 120 MG DAILY 06/30 1608 AC 06/30 PO 1732 Fluticasone 2 SPRAY AT BEDTIME 06/30 2100 AC Propionate MARCO Furosemide 0 .STK-MED ONE 06/30 1300 DC IV Furosemide 40 MG ONCE ONE 06/30 1245 DC 06/30 IV PUSH 06/30 1246 1355 Guaifenesin 1,200 MG Q12 06/30 2100 AC PO Ipratropium [place] 2.5 ML ONCE ONE 06/30 0930 DC 06/30 INH 06/30 0931 0944 Losartan Potassium 50 MG BID 06/30 2100 AC PO Magnesium Oxide 400 MG DAILY 06/30 1610 AC 06/30 PO 1732 Methylprednisolone 0 .STK-MED ONE 06/30 0946 DC .ROUTE Methylprednisolone 125 MG ONCE ONE 06/30 0930 DC 06/30 IV 06/30 0931 0950 Metoprolol Succinate 25 MG DAILY 06/30 1610 AC 06/30 PO 1732 Omeprazole 20 MG DAILY AC 06/30 1608 AC 06/30 PO 1732 Rivaroxaban 15 MG DAILY 06/30 1610 AC 06/30 PO 1732 Laboratory Tests 06/30/18 0943: Anion Gap 7, Estimated GFR > 60, BUN/Creatinine Ratio 15.7, Glucose 120 H, Calcium 8.8, Total Bilirubin 0.9, AST 20, ALT 29, Alkaline Phosphatase 65, Troponin I < 0.01, Ogi-B-Uydhuvblumk Pept 2410 H, Total Protein 6.1 L, Albumin 3.5, Globulin 2.6, Albumin/Globulin Ratio 1.3, CBC w Diff NO MAN DIFF REQ, RBC 4.11 L, MCV 73.2 L, MCH 24.1 L, MCHC 32.9 L, RDW 18.6 H, MPV 7.9, Gran % 81.6 H, Lymphocytes % 10.0 L, Monocytes % 8.0, Eosinophils % 0.1, Basophils % 0.3, Absolute Granulocytes 8.1 H, Absolute Lymphocytes 1.0 L, Absolute Monocytes 0.8 H, Absolute Eosinophils 0, Absolute Basophils 0 Vital Signs Date Time Temp Pulse Resp B/P B/P Pulse O2 O2 Flow FiO2 Mean Ox Delivery Rate 06/30 1732 98 146/72 06/30 1457 98.1 110 20 140/78 98 Nasal 2.0L Cannula 06/30 1453 Nasal 2.0L Cannula 06/30 1355 98.4 100 18 147/65 97 Nasal 2.0L Cannula 06/30 1138 99.3 100 18 162/66 93 Room Air 06/30 0955 97 Room Air Room Air 06/30 0945 94 Intake & Output 06/30 1600 Intake Total 180 Output Total Balance 180 Intake, Oral 180 Patient 161 lb Weight Weight Bed scale Measurement Method
--- NOTE | 2018-06-30 20:29 | Cons- Cardiology ---
General Information and HPI Consulting Request Date of Consult: 06/30/18 Requested By: Antonio Lopez MD History of Present Illness: is an 87 year old female with a history of hypertension, dyslipidemia, COPD, non-small cell lung carcinoma and carcinoid syndrome s/p right and left lower lobectomies (2006, 2007) with subsequent recurrence and radiation therapy (2013) complicated by radiation pneumonitis. She also carries a history of mitral and aortic stenosis and moderate pulmlonary hypertension. Finally this patient has atrial fibrillation. Over the past three to four days this patient has noted gradually worsening shortness of breath accompanied by orthopnea. She denies anything other than a dry cough and is without fever or chills. She denies chest pain, pressure, tightness, lightheadedness or palpitations. She has not had any indiscretions with sodium and is taking all her medications as prescribed. X-ray disclosed small bilateral pleural effusions and hazy opacities consistent with either infiltrate or failure. Allergies/Medications Allergies: Coded Allergies: adhesive tape (RASH ON SKIN THAT IT TOUCHES 10/22/17) iodine (DAVIS SKIN WHERE APPLIED 10/22/17) povidone-iodine (DAVIS SKIN WHERE IT IS APPLIED 10/22/17) shellfish derived (HIVES ALL OVER 10/22/17) propoxyphene (GI UPSET 10/22/17) Home Med List: Albuterol Sulfate 2.5 MG/3 ML (0.083 %) VIAL.NEB 1 Vial INH/JULIO BID COPD ( Reported) Albuterol Sulfate (Ventolin Hfa) 90 MCG HFA.AER.AD 2 PUF INH Q4-6 PRN PRN SHORTNESS OF BREATH Aspirin (Ecotrin*) 81 MG TABLET.DR 1 TAB PO DAILY HEART (Reported) Atorvastatin Calcium (Lipitor) 20 MG TABLET 1 TAB PO QPM CHOLESTEROL ( Reported) Budesonide/Formoterol Fumarate (Symbicort 160-4.5 Mcg Inhaler) 160 MCG-4.5 MCG/ ACTUATION HFA.AER.AD 2 PUF INH BID COPD (Reported) Cholecalciferol (Vitamin D3) (Vitamin D3) 1,000 UNIT CAPSULE 1 CAP PO DAILY HEALTH SUPPLEMENT (Reported) Diltiazem HCl (Diltiazem 24HR Cd) 120 MG CAP.ER.24H 1 CAP PO DAILY HEART/BP ( Reported) Esomeprazole Magnesium (Nexium) 20 MG CAPSULE.DR 1 CAP PO DAILY ACID REFLUX ( Reported) Fluticasone Propionate 50 MCG/ACTUATION SPRAY.SUSP 2 SPRAY NASB DAILY ALLERGIES (Reported) Furosemide 40 MG TABLET 1 TAB PO BID DIURETIC (Reported) Guaifenesin (Mucinex) 1,200 MG TAB.ER.12H 1 TAB PO BID ALLERGIES (Reported) Losartan Potassium 100 MG TABLET 0.5 TAB PO BID BP (Reported) Magnesium Oxide 400 MG TABLET 1 TAB PO DAILY SUPPLEMENT (Reported) Metoprolol Succinate 25 MG TAB 1 TAB PO DAILY BP (Reported) [place]-3 Acid Ethyl Esters (Lovaza) 1 GRAM CAPSULE 1 CAP PO BID CHOLESTEROL/ TRIGLYCERIDES (Reported) Potassium Chloride 20 MEQ TAB.ER.PRT 1 TAB PO DAILY SUPPLEMENT (Reported) Rivaroxaban (Xarelto) 15 MG TABLET 1 TAB PO DAILY afib . Review of Systems Review of Systems: A review of systems is unremarkable. 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 spouse Services at Home: None Primary Language: Icelandic Smoking Status: Never Smoked ETOH Use: denies use Illicit Drug Use: denies illicit drug use Living Will? yes Functional Ability ADLs Independent: dressing, eating, toileting, bathing. Ambulation: independent IADLs Independent: shopping, housework, finances, food prep, telephone, transportation , medication admin. Exam & Diagnostic Data Vital Signs and I&O Vital Signs Date Time Temp Pulse Resp B/P B/P Pulse O2 O2 Flow FiO2 Mean Ox Delivery Rate 06/30 1732 98 146/72 06/30 1457 98.1 110 20 140/78 98 Nasal 2.0L Cannula 06/30 1453 Nasal 2.0L Cannula 06/30 1355 98.4 100 18 147/65 97 Nasal 2.0L Cannula 06/30 1138 99.3 100 18 162/66 93 Room Air 06/30 0955 97 Room Air Room Air 06/30 0945 94 / 0839 98.7 97 20 174/78 97 Room Air Intake & Output 06/30 1600 06/30 0800 06/30 0000 06/29 1600 06/29 0800 06/29 0000 Intake Total 180 Output Total Balance 180 Intake, Oral 180 Patient 161 lb Weight Weight Bed scale Measurement Method Physical Exam: General: WD/WN female in NAD; alert and oriented x 3 HEENT: NC/AT, PERRL, EOMI Neck: no JVD, no carotid bruit Heart: irregular with 3/6 systolic murmur at the apex, 3/6 systolic murmur at the LLSB and 3/6 systolic murmur at the RUSB Lungs: scant crackles at the bases bilaterally Extremities: no edema Assessment/Plan Assessment/Plan * Although this patient has a history of COPD and may have a slight exacerbation of this condition, I am more suspicious of mild decompensated CHF from valvular heart disease. In consideration of her extensive valvular disease, comorbidities and advance age I think that invasive management is high risk. Obtain a repeat echocardiogram. * Diurese with Lasix at 40mg IV daily with careful monitoring of her BUN, creatinine and potassium. Continue afterload reduction with Losartan. * Continue Xarelto for stroke prophylaxis. * Obtain a 12 lead ECG. Consult Acknowledgment - Thank you for your consult request.
[2018-06-30 21:32] VITALS: BP 132/60
[2018-07-01 06:33] VITALS: BP 122/66
[2018-07-01 08:19] LABS: ABSOLUTE BASOPHIL COUNT 0 /CUMM (0.0-0.2); ABSOLUTE EOSINOPHIL COUNT 0 /CUMM (0.0-0.7); ABSOLUTE GRANULOCYTE CT 6.8 /CUMM (1.4-6.5); ABSOLUTE LYMPH COUNT 0.6 /CUMM (1.2-3.4); ABSOLUTE MONOCYTE COUNT 0.3 /CUMM (0.10-0.60); BASOPHIL % 0 % (0.0-2.0); EOSINOPHIL % 0 % (0-5); GRANULOCYTE % 87.9 % (42.2-75.2); HEMATOCRIT 27.7 % (37-47); MEAN CORPUSCULAR HGB 24.6 PG (27.0-31.0); MEAN CORPUSCULAR HGB CONC 33.7 G/DL (33.0-37.0); MEAN CORPUSCULAR VOLUME 73.1 FL (81.0-99.0); MEAN PLATELET VOLUME 9.2 FL (7.4-10.4); PLATELET COUNT 292 /CUMM (130-400); RBC DISTRIBUTION WIDTH 18.5 % (11.5-14.5); RED BLOOD CELL CT 3.79 /CUMM (4.20-5.40); WHITE BLOOD CELL COUNT 7.7 /CUMM (4.8-10.8)
--- NOTE | 2018-07-01 08:33 | Cons- Pulmonary ---
General Information and HPI Consulting Request Date of Consult: 07/01/18 Requested By: Dr. Lopez Reason for Consult: Shortness of breath, bronchospasm Source of Information: patient, old records Exam Limitations: no limitations History of Present Illness: The patient is an 87-year-old female with a history of COPD with recurrent bronchospasm, HFpEF, valvular heart disease, chronic lower extremity edema with venous stasis secondary to heart failure, non-small cell lung cancer and carcinoid tumor status post bilateral lower lobectomies with radiation, radiation pneumonitis, multinodular thyroid gland, GERD, and hypertension. The patient presented to the emergency department for evaluation of worsening dyspnea. The patient's symptoms worsened for a few days prior to evaluation. The patient complained of worsening dyspnea as well as decreased appetite. The patient had increased wheezing along with a cough productive of clear sputum, which has not changed recently. The patient also had worsening orthopnea and difficulty sleeping at night. She had worsening lower extremity edema as well. There is no report of fever, chills, chest pain, nausea, vomiting or abdominal pain. In the emergency department, the patient had a chest x-ray that showed diffuse bilateral airspace opacities consistent with pulmonary edema versus multifocal pneumonia. She was afebrile with a white blood cell count of 9.9. Blood pressure was 174/78. Oxygen saturation was 97% on room air. ProBNP was elevated at 2410. The patient was admitted to the telemetry floor, started on IV Lasix, Solu-Medrol, nebs, total respiratory care, supplemental oxygen, and her home medications were continued. She was not started on antibiotics as she did not have significant evidence to suggest pneumonia. The patient felt improved after receiving Lasix and Solu-Medrol. Allergies/Medications Allergies: Coded Allergies: adhesive tape (RASH ON SKIN THAT IT TOUCHES 10/22/17) iodine (DAVIS SKIN WHERE APPLIED 10/22/17) povidone-iodine (DAVIS SKIN WHERE IT IS APPLIED 10/22/17) shellfish derived (HIVES ALL OVER 10/22/17) propoxyphene (GI UPSET 10/22/17) Home Med List: Albuterol Sulfate 2.5 MG/3 ML (0.083 %) VIAL.NEB 1 Vial INH/JULIO BID COPD ( Reported) Albuterol Sulfate (Ventolin Hfa) 90 MCG HFA.AER.AD 2 PUF INH Q4-6 PRN PRN SHORTNESS OF BREATH Aspirin (Ecotrin*) 81 MG TABLET.DR 1 TAB PO DAILY HEART (Reported) Atorvastatin Calcium (Lipitor) 20 MG TABLET 1 TAB PO QPM CHOLESTEROL ( Reported) Budesonide/Formoterol Fumarate (Symbicort 160-4.5 Mcg Inhaler) 160 MCG-4.5 MCG/ ACTUATION HFA.AER.AD 2 PUF INH BID COPD (Reported) Cholecalciferol (Vitamin D3) (Vitamin D3) 1,000 UNIT CAPSULE 1 CAP PO DAILY HEALTH SUPPLEMENT (Reported) Diltiazem HCl (Diltiazem 24HR Cd) 120 MG CAP.ER.24H 1 CAP PO DAILY HEART/BP ( Reported) Esomeprazole Magnesium (Nexium) 20 MG CAPSULE.DR 1 CAP PO DAILY ACID REFLUX ( Reported) Fluticasone Propionate 50 MCG/ACTUATION SPRAY.SUSP 2 SPRAY NASB DAILY ALLERGIES (Reported) Furosemide 40 MG TABLET 1 TAB PO BID DIURETIC (Reported) Guaifenesin (Mucinex) 1,200 MG TAB.ER.12H 1 TAB PO BID ALLERGIES (Reported) Losartan Potassium 100 MG TABLET 0.5 TAB PO BID BP (Reported) Magnesium Oxide 400 MG TABLET 1 TAB PO DAILY SUPPLEMENT (Reported) Metoprolol Succinate 25 MG TAB 1 TAB PO DAILY BP (Reported) [place]-3 Acid Ethyl Esters (Lovaza) 1 GRAM CAPSULE 1 CAP PO BID CHOLESTEROL/ TRIGLYCERIDES (Reported) Potassium Chloride 20 MEQ TAB.ER.PRT 1 TAB PO DAILY SUPPLEMENT (Reported) Rivaroxaban (Xarelto) 15 MG TABLET 1 TAB PO DAILY afib . Current Medications: Current Medications Sig/Heena Start time Last Medication Dose Route Stop Time Status Admin Acetaminophen 650 MG Q6PRN PRN 06/30 1630 AC PO Albuterol Sulfate 3 ML BID 07/01 0900 AC 07/01 INH 0800 Albuterol Sulfate 3 ML BID 06/30 2100 DC INH Albuterol Sulfate 2 PUF Q4-6 PRN PRN 06/30 1615 AC INH Albuterol Sulfate 3 ML ONCE ONE 06/30 0930 DC 06/30 INH 06/30 0931 0944 Aspirin Buffered 81 MG DAILY 06/30 1607 AC 06/30 PO 1732 Atorvastatin Calcium 20 MG QPM 06/30 2100 AC 06/30 PO 2009 Benzonatate 100 MG TID 07/01 0430 AC 07/01 PO 0423 Benzonatate 0 .STK-MED ONE 07/01 0424 DC PO Budesonide/ 2 PUF BID 06/30 2100 AC 06/30 Formoterol Fumarate INH 2010 Diltiazem HCl 120 MG DAILY 06/30 1608 AC 06/30 PO 1732 Fluticasone 2 SPRAY AT BEDTIME 06/30 2100 AC 06/30 Propionate MARCO 2010 Furosemide 40 MG DAILY 07/01 09 AC IV Furosemide 0 .STK-MED ONE 06/30 1300 DC IV Furosemide 40 MG ONCE ONE 06/30 1245 DC 06/30 IV PUSH 06/30 1246 1355 Guaifenesin 1,200 MG Q12 06/30 2100 AC 06/30 PO 2009 Ipratropium [place] 2.5 ML ONCE ONE 06/30 0930 DC 06/30 INH 06/30 0931 0944 Losartan Potassium 50 MG BID 06/30 2100 AC 06/30 PO 2009 Magnesium Oxide 400 MG DAILY 06/30 1610 AC 06/30 PO 1732 Methylprednisolone 40 MG Q12 07/01 0900 AC IV Methylprednisolone 0 .STK-MED ONE 06/30 0946 DC .ROUTE Methylprednisolone 125 MG ONCE ONE 06/30 0930 DC 06/30 IV 06/30 0931 0950 Metoprolol Succinate 25 MG DAILY 06/30 1610 AC 06/30 PO 1732 Omeprazole 20 MG DAILY AC 06/30 1608 AC 07/01 PO 0532 Rivaroxaban 15 MG DAILY 06/30 1610 AC 06/30 PO 1732 Review of Systems Review of Systems All Other Systems: Reviewed and Negative Past History Travel History Traveled to [place] past 21 day No Medical History Neurological: NONE EENT: allergies, cataracts, epistaxis Cardiovascular: AFIB, CHF, hypertension Respiratory: COPD, pneumonia, radiation pneumonitis non-small cell lung cancer s /p lobectomy 2006 2007, s/p radiation 2013, c/b radiation pneumonitis Gastrointestinal: GERD, carcinoid syndrome, s/p resection Hepatic: CHOSLECYSTECTOMY Renal: NONE Musculoskeletal: osteoarthritis Psychiatric: insomnia Endocrine: NONE Blood Disorders: NONE Cancer(s): 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 spouse Services at Home: None Primary Language: Georgian Smoking Status: Never Smoked ETOH Use: denies use Illicit Drug Use: denies illicit drug use Living Will? yes Functional Ability ADLs Independent: dressing, eating, toileting, bathing. Ambulation: independent IADLs Independent: shopping, housework, finances, food prep, telephone, transportation , medication admin. Exam & Diagnostic Data Last 24 Hrs of Vital Signs/I&O Vital Signs Date Time Temp Pulse Resp B/P B/P Pulse O2 O2 Flow FiO2 Mean Ox Delivery Rate 07/01 0808 95 Nasal 1.0L Cannula 07/01 0633 97.7 77 20 122/66 98 Nasal Cannula 06/30 2307 Nasal 2.0L Cannula 06/30 2155 Nasal 2.0L Cannula 06/30 2132 97.7 97 20 132/60 98 Nasal 5.0L Cannula 06/30 1732 98 146/72 06/30 1457 98.1 110 20 140/78 98 Nasal 2.0L Cannula 06/30 1453 Nasal 2.0L Cannula 06/30 1355 98.4 100 18 147/65 97 Nasal 2.0L Cannula 06/30 1138 99.3 100 18 162/66 93 Room Air 06/30 0955 97 Room Air Room Air 06/30 0945 94 06/30 0839 98.7 97 20 174/78 97 Room Air Intake & Output 07/01 1600 08 0800 0808 0000 Intake Total 200 50 Output Total 300 Balance -100 50 Intake, Oral 200 50 Output, Urine 300 Patient 164 lb Weight Weight Bed scale Measurement Method Physical Exam General Appearance: well developed/nourished, no apparent distress, alert, awake , comfortable Head: atraumatic Eyes: Bilateral: PERRL. Neck: supple Respiratory: decreased breath sounds, few scattered wheezes, decreased breath sounds at lung bases, scattered crackles Cardiovascular: systolic murmur, irregularly irregular Gastrointestinal: normal bowel sounds, soft, non-tender Extremities: bilateral lower extremity edema Skin: intact, normal color, warm/dry Last 48 Hrs of Labs/Jem: Laboratory Tests 07/01/18 0640: Sodium Pending, Potassium Pending, Chloride Pending, Carbon Dioxide Pending, Anion Gap Pending, BUN Pending, Creatinine Pending, BUN/Creatinine Ratio Pending , CBC w Diff Pending, WBC Pending, RBC Pending, Hgb Pending, Hct Pending, MCV Pending, MCH Pending, MCHC Pending, RDW Pending, Plt Count Pending, MPV Pending 06/30/18 0943: Anion Gap 7, Estimated GFR > 60, BUN/Creatinine Ratio 15.7, Glucose 120 H, Calcium 8.8, Total Bilirubin 0.9, AST 20, ALT 29, Alkaline Phosphatase 65, Troponin I < 0.01, Njt-H-Plivudmcjur Pept 2410 H, Total Protein 6.1 L, Albumin 3.5, Globulin 2.6, Albumin/Globulin Ratio 1.3, CBC w Diff NO MAN DIFF REQ, RBC 4.11 L, MCV 73.2 L, MCH 24.1 L, MCHC 32.9 L, RDW 18.6 H, MPV 7.9, Gran % 81.6 H, Lymphocytes % 10.0 L, Monocytes % 8.0, Eosinophils % 0.1, Basophils % 0.3, Absolute Granulocytes 8.1 H, Absolute Lymphocytes 1.0 L, Absolute Monocytes 0.8 H, Absolute Eosinophils 0, Absolute Basophils 0 Diagnostic Data CXR Results Diffuse bilateral airspace opacities representing either pulmonary edema or multifocal pneumonia. This finding is new compared with the prior chest radiograph from 01/28/2018. There are bilateral pleural effusions, left larger than right. Assessment/Plan Impression/Plan: 1. Decompensated CHF in the setting of valvular heart disease. 2. History of COPD with recurrent bronchospasm. Stable respiratory status with minimal bronchospasm at present. 3. 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 4. Atrial fibrillation, on Xarelto. 5. Multifocal infiltrates and bilateral pleural effusions. Recommendations: * Check a noncontrast CT scan of the chest for evaluation of pleural effusions. * Monitor strict I's and O's. Maintain negative fluid balance. Continue IV Lasix and follow electrolytes/renal function. * Continue nebs/total respiratory care. * Incentive spirometry. * Supplemental oxygen to maintain saturations greater than 92%. * Titrate oxygen off if able. * Continue Solu-Medrol 40 mg IV every 12 hours. Will taper slowly. * Check urine for strep pneumo and Legionella. * Check a sputum culture. * Panculture if any evidence of fever or chills. * Monitor off antibiotics for now. * Continue inhaler therapy. * DVT prophylaxis at all times. * Continue all supportive care. Consult Acknowledgment - Thank you for your consult request.
--- NOTE | 2018-07-01 10:03 | PN- Att Addend ---
Attending Addendum Attending Brief Note Patient looks and feels better in no respiratory distress. Vital signs are stable no fever. No major changes in physical examination. Appreciate cardiology and pulmonary's input. Pulmonary thinks is more CHF than exacerbation of her COPD. Cardiology evaluated the patient to will have an echocardiogram and then after reading the results will see what the proper treatment should be. 24 TOTALS 07/01 0000 06/30 0000 Intake Total 230 Output Total Balance 230 Intake, Oral 230 Patient 164 lb Weight Weight Bed scale Measurement Method Current Medications Sig/Heena Start time Last Medication Dose Route Stop Time Status Admin Acetaminophen 650 MG Q6PRN PRN 06/30 1630 AC PO Albuterol Sulfate 3 ML BID 07/01 09 AC 07/01 INH 0800 Albuterol Sulfate 3 ML BID 06/30 2100 DC INH Albuterol Sulfate 2 PUF Q4-6 PRN PRN 06/30 1615 AC INH Aspirin Buffered 81 MG DAILY 06/30 1607 AC 07/01 PO 0827 Atorvastatin Calcium 20 MG QPM 06/30 2100 AC 06/30 PO 2009 Benzonatate 100 MG TID 07/01 0430 AC 07/01 PO 0423 Benzonatate 0 .STK-MED ONE 07/01 0424 DC PO Budesonide/ 2 PUF BID 06/30 2100 AC 07/01 Formoterol Fumarate INH 0828 Diltiazem HCl 120 MG DAILY 06/30 1608 AC 07/01 PO 0828 Fluticasone 2 SPRAY AT BEDTIME 06/30 2100 AC 06/30 Propionate MARCO 2010 Furosemide 40 MG DAILY 07/01 900 AC 07/01 IV 0828 Furosemide 0 .STK-MED ONE 06/30 1300 DC IV Furosemide 40 MG ONCE ONE 06/30 1245 DC 06/30 IV PUSH 06/30 1246 1355 Guaifenesin 1,200 MG Q12 06/30 2100 AC 07/01 PO 0827 Losartan Potassium 50 MG BID 06/30 2100 AC 07/01 PO 0827 Magnesium Oxide 400 MG DAILY 06/30 1610 AC 07/01 PO 0828 Methylprednisolone 40 MG Q12 07/01 0900 AC 07/01 IV 0828 Metoprolol Succinate 25 MG DAILY 06/30 1610 AC 07/01 PO 0828 Omeprazole 20 MG DAILY AC 06/30 1608 AC 07/01 PO 0532 Rivaroxaban 15 MG DAILY 06/30 1610 AC 07/01 PO 0827 Laboratory Tests 07/01/18 0640: Anion Gap 7, Estimated GFR > 60, BUN/Creatinine Ratio 25.7 H, CBC w Diff MAN DIFF ORDERED, RBC 3.79 L, MCV 73.1 L, MCH 24.6 L, MCHC 33.7, RDW 18.5 H, MPV 9.2, Gran % 87.9 H, Lymphocytes % 8.2 L, Monocytes % 3.9, Eosinophils % 0, Basophils % 0, Absolute Granulocytes 6.8 H, Absolute Lymphocytes 0.6 L, Absolute Monocytes 0.3, Absolute Eosinophils 0, Absolute Basophils 0, Platelet Estimate VERIFIED BY SMEAR, Polychromasia 1+, Hypochromic-Microcytic 1+, Poikilocytosis 1+, Anisocytosis 1+, Microcytic Cells 1+, Ovalocytes 1+, [place] Cells 1+ 06/30/18 0943: Anion Gap 7, Estimated GFR > 60, BUN/Creatinine Ratio 15.7, Glucose 120 H, Calcium 8.8, Total Bilirubin 0.9, AST 20, ALT 29, Alkaline Phosphatase 65, Troponin I < 0.01, Xae-P-Udnoqkmmzsd Pept 2410 H, Total Protein 6.1 L, Albumin 3.5, Globulin 2.6, Albumin/Globulin Ratio 1.3, CBC w Diff NO MAN DIFF REQ, RBC 4.11 L, MCV 73.2 L, MCH 24.1 L, MCHC 32.9 L, RDW 18.6 H, MPV 7.9, Gran % 81.6 H, Lymphocytes % 10.0 L, Monocytes % 8.0, Eosinophils % 0.1, Basophils % 0.3, Absolute Granulocytes 8.1 H, Absolute Lymphocytes 1.0 L, Absolute Monocytes 0.8 H, Absolute Eosinophils 0, Absolute Basophils 0 Vital Signs Date Time Temp Pulse Resp B/P B/P Pulse O2 O2 Flow FiO2 Mean Ox Delivery Rate 07/01 828 77 122/66 07/01 08 77 122/66 07/01 0808 95 Nasal 1.0L Cannula 07/01 0800 93 Nasal 2.0L Cannula 07/01 0633 97.7 77 20 122/66 98 Nasal Cannula 06/30 2307 Nasal 2.0L Cannula 06/30 2155 Nasal 2.0L Cannula 06/30 2132 97.7 97 20 132/60 98 Nasal 5.0L Cannula 06/30 1732 98 146/72 06/30 1457 98.1 110 20 140/78 98 Nasal 2.0L Cannula 06/30 1453 Nasal 2.0L Cannula 06/30 1355 98.4 100 18 147/65 97 Nasal 2.0L Cannula 06/30 1138 99.3 100 18 162/66 93 Room Air Continue diuresis.
--- NOTE | 2018-07-01 12:05 | PN- Housestaff ---
Subjective Follow-up For: COPD vs decompensated CHF Subjective: Pt is seen and examined in lying in bed today as breakfast arrives. She says she feels much better than yesterday. No acute events overnight per nursing. Patient has no new complaints. She denies fever, headache, chest pain, chest tightness, trouble breathing, palpitations, dizziness, and feels that her breathing is improving as she has to struggle less for gasps of air. She slept well last night. Review of Systems Constitutional: Reports: see HPI. Objective Last 24 Hrs of Vital Signs/I&O Vital Signs Date Time Temp Pulse Resp B/P B/P Pulse O2 O2 Flow FiO2 Mean Ox Delivery Rate 07/01 193 93 Nasal 55% Cannula 07/01 1919 97.1 24 07/01 1914 113 24 158/68 86 Venti Mask 40% 07/01 1813 92 Nasal 2.0L Cannula 07/01 1805 104 24 142/56 90 Nasal 4.0L Cannula 07/01 1800 22 85 Nasal 2.0L Cannula 07/01 1600 Nasal 2.0L Cannula 07/01 1416 98.6 78 20 130/50 99 07/01 0828 77 122/66 07/01 0827 77 122/66 07/01 0808 95 Nasal 1.0L Cannula 07/01 0800 93 Nasal 2.0L Cannula 07/01 0633 97.7 77 20 122/66 98 Nasal Cannula 06/30 2307 Nasal 2.0L Cannula 06/30 2155 Nasal 2.0L Cannula 06/30 2132 97.7 97 20 132/60 98 Nasal 5.0L Cannula Intake & Output 07/01 1600 07/01 0800 07/01 0000 Intake Total 650 200 50 Output Total 950 300 Balance -300 -100 50 Intake, Oral 650 200 50 Number 2 Bowel Movements Output, Urine 950 300 Patient 164 lb Weight Weight Bed scale Measurement Method Physical Exam General Appearance: Alert, Oriented X3, Cooperative, No Acute Distress Skin: No Breakdown Skin Temp/Moisture Exam: Warm/Dry Sepsis Skin Exam (color): Normal for Ethnicity HEENT: Atraumatic Neck: Supple Cardiovascular: Normal S1, Normal S2 Lungs: Bilateral exp wheezing and bibasalar crackles Abdomen: Soft, No Tenderness Extremities: Bilateral trace edema in lower ext Current Medications: Current Medications Sig/Heena Start time Last Medication Dose Route Stop Time Status Admin Acetaminophen 650 MG Q6PRN PRN 06/30 1630 AC PO Albuterol Sulfate 3 ML BID 07/01 0900 AC 07/01 INH 1811 Albuterol Sulfate 3 ML BID 06/30 2100 DC INH Albuterol Sulfate 2 PUF Q4-6 PRN PRN 06/30 1615 AC INH Aspirin Buffered 81 MG DAILY 06/30 1607 AC 07/01 PO 0827 Atorvastatin Calcium 20 MG QPM 06/30 2100 AC 06/30 PO 2009 Benzonatate 100 MG TID 07/01 0430 AC 07/01 PO 1303 Benzonatate 0 .STK-MED ONE 07/01 0424 DC PO Budesonide/ 2 PUF BID 06/30 2100 AC 07/01 Formoterol Fumarate INH 0828 Ceftazidime 1,000 MG Q12 07/01 2100 AC IV Diltiazem HCl 120 MG DAILY 06/30 1608 AC 07/01 PO 0828 Fluticasone 2 SPRAY AT BEDTIME 06/30 2100 AC 06/30 Propionate MARCO 2010 Furosemide 40 MG ONCE ONE 07/01 1915 DC 07/01 IV 07/01 1916 1909 Furosemide 20 MG ONCE ONE 07/01 1830 DC 07/01 IV 07/01 1831 1831 Furosemide 40 MG DAILY 07/01 0900 AC 07/01 IV 0828 Guaifenesin 1,200 MG Q12 06/30 2100 AC 07/01 PO 0827 Losartan Potassium 50 MG BID 06/30 2100 AC 07/01 PO 0827 Magnesium Oxide 400 MG DAILY 06/30 1610 AC 07/01 PO 0828 Methylprednisolone 40 MG Q12 07/01 0900 AC 07/01 IV 0828 Metoprolol Succinate 25 MG DAILY 06/30 1610 AC 07/01 PO 0828 Omeprazole 20 MG DAILY AC 06/30 1608 AC 07/01 PO 0532 Potassium Chloride 40 MEQ ONCE ONE 07/01 2030 DC PO 07/01 203 Rivaroxaban 15 MG DAILY 06/30 1610 AC 07/01 PO 0827 Vancomycin HCl 1,000 MG 2100 07/01 2100 AC Sodium Chloride 250 ML IV Last 24 Hrs of Lab/Jem Results Last 24 Hrs of Labs/Mics: Laboratory Tests 07/01/18 0640: Anion Gap 7, Estimated GFR > 60, BUN/Creatinine Ratio 25.7 H, CBC w Diff MAN DIFF ORDERED, RBC 3.79 L, MCV 73.1 L, MCH 24.6 L, MCHC 33.7, RDW 18.5 H, MPV 9.2, Gran % 87.9 H, Lymphocytes % 8.2 L, Monocytes % 3.9, Eosinophils % 0, Basophils % 0, Absolute Granulocytes 6.8 H, Absolute Lymphocytes 0.6 L, Absolute Monocytes 0.3, Absolute Eosinophils 0, Absolute Basophils 0, Platelet Estimate VERIFIED BY SMEAR, Polychromasia 1+, Hypochromic-Microcytic 1+, Poikilocytosis 1+, Anisocytosis 1+, Microcytic Cells 1+, Ovalocytes 1+, Navid Cells 1+ Microbiology 07/01 2020 URINE ROUT: Urine Culture - ORD 07/01 1945 UPPER RESP: Surveillance Culture - RECD 07/01 1929 GI: Surveillance Culture - COLB 07/01 1346 URINE ROUT: Legionella Antigen - COMP 07/01 134 URINE ROUT: Streptococcus pneumoniae Antigen (M - COMP 07/01 1014 LOWER RESP: Respiratory Culture - COLB 07/01 1014 LOWER RESP: Gram Stain - COLB Assessment/Plan Assessment: Patient is a very pleasent 87 year old female with a PMH of COPD, 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 Problem List: 1. Decompensated CHF in the setting of valvular heart disease vs COPD exacerbation 2. Multifocal infiltrates and bilateral pleural effusions representing pulmonary edema or multifocal pneumonia (CXR 06/30/18) which is a new finding compared to CXR (01/28/18) 3. History of non-small cell lung cancer and carcinoid tumor with bilateral lower lobectomies, status post radiation and radiation pneumonitis 4. Afib on Xarelto Plan: - Appreciate pulm and cardio recs - Check noncontrast CT chest for evaluation of pleural effusions - Monitor strict I's and O's. Maintain negative fluid balance. - Continue IV Lasix 40 mg IV - Monitor BUN, Clinical Laboratory Aide, and K - Continue afterload reduction with Losartan - Continue nebs/TRC - Supplemental O2 (maintain So2 > 92%) - Continue Solu Medrol Q12 - Urine for strep pneumo or Legionella - Panculture if any evidence of fever or chills Problem List: 1. Dyspnea 2. CHF (congestive heart failure) 3. COPD (chronic obstructive pulmonary disease) Pain Ratin Pain Location: NA Pain Goal: Remain pain free Pain Plan: Tylenol Tomorrow's Labs & Rationales: BEP, CBC, Blood Gas Pain Ratin Pain Location: NA Pain Goal: Remain pain free Pain Plan: Tylenol Tomorrow's Labs & Rationales: BEP, CBC, Blood Gas
[2018-07-01 14:16] VITALS: BP 130/50
--- NOTE | 2018-07-01 15:16 | CT SCAN REPORT ---
EXAMINATION: CT CHEST WITHOUT IV CONTRAST CLINICAL INFORMATION: 87-year-old female presenting with bilateral pleural effusions and shortness of breath. COMPARISON: Portable chest x-ray of 06/30/2018. Chest CTs of 01/20/2018 and 08/28/2017 TECHNIQUE: Multidetector volumetric CT imaging of the chest was performed without intravenous administration of contrast. Axial MIP volume rendering provided. Sagittal and coronal reformatted images were obtained. DLP: 179.3 mGy-cm FINDINGS: JET INSPECTOR: Bilateral pleural effusions are noted. LUNGS: There is bilateral airspace disease somewhat more severe in the perihilar regions. Centrilobular emphysema is also noted. Consolidation with air bronchograms are noted in the left lower lobe abutting the major fissure. There is no evidence of a pneumothorax. There is pleural-parenchymal disease involving the lateral right chest. The tracheobronchial tree is patent. MEDIASTINUM/SRIDEVI: The thyroid gland is unremarkable. The thoracic aorta has scattered calcific atherosclerotic changes but is normal in caliber. There is no evidence of mediastinal or hilar adenopathy. The left atrium is dilated. There is extensive calcification of the mitral annulus. There is no evidence of a pericardial effusion. PLEURA: There are small bilateral pleural effusions present. AXILLA/CHEST WALL: No supraclavicular or axillary adenopathy is identified. There is no evidence of a chest wall mass. UPPER ABDOMEN: Unremarkable. OSSEOUS STRUCTURES: Multilevel degenerative spondylitic changes are present. No suspicious focal osteolytic or osteoblastic lesions are appreciated. IMPRESSION: 1. Bilateral airspace disease and bilateral pleural effusions in association with a left atrial dilatation consistent with pulmonary edema. Of these findings have improved compared to the previous chest CTs. 2. Focal consolidation in the left lower lobe extending to the major fissure. A concurrent pneumonia cannot be excluded. This finding is unchanged compared to prior chest CT of 01/20/2018 but improved compared to study of 08/28/2017.
[2018-07-01 18:05] VITALS: BP 142/56
--- NOTE | 2018-07-01 18:19 | Event Note ---
Event Note Event Note: Pedro had dinner at around 5.45, post dinner, she felt breathless, and was on O2 2L at the time she became SOB. The O2 Nasal cannula was increaseed to 4L . Denied any chest pain or palpitations. O/E- Patient was sitting on her bed and was gasping for breath, her RR was around 22, she was diaphoretic . -On auscultation she had corse expiratory rhonci on right lower lung bases. -tachycardia , S1 S2 normal No abdominal tenderness. RBS - 197( post meal) Rx- TRC was consulted , received Nebuliser Albuterol. - Oxygen 4L - Lasix 20 mg ,IV 7:00 PM - Situation -I was called that the patient is having severe shortness of breath and desaturating to 86%. Patient is seen and examined at the bedside. She was complaining of slight chest congestion along with difficulty in the breathing. Vital signs were-blood pressure was 140/96, heart rate 100/min, lungs bilateral wheezing and crackles at the bases, no JVD, bilateral lower leg edema. Her pulses are palpable in all 4 limbs. We gave nebulization and followed by 20 mg of IV Lasix. After couple of May she felt a little better. But later on again started complaining of shortness of breath and desaturated to 84%. He called respiratory therapist who advised for rebreather mask. We advised for blood workup including CBC, BMP, troponin, EKG, d-dimer, chest x-ray. Patient started having bloody and frothy sputum which, states it may be pulmonary edema. Background- Patient is a very pleasent 87 year old female with a PMH of COPD, 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 Assessment- Is a possibility that patient is having either pulmonary edema, ARDS, pulmonary embolism. Discussed with Dr. Cano over the phone and according to him we should get a chest x-ray to rule out excessive pulmonary edema. He advised to give 40 mg of IV Lasix. Plan - * Transfer the patient into the ICU * TRC/nebulization * Give injection Lasix 40 mg IV stat. * We will follow CBC, BEP, troponins, EKGs, d-dimer. * Signed out to Dr Narayanan, in ICU.
[2018-07-01 19:14] VITALS: BP 158/68
--- NOTE | 2018-07-01 19:41 | RADIOLOGY REPORT ---
EXAMINATION: XR PORTABLE CHEST CLINICAL INFORMATION : Tachycardia and shortness of breath COMPARISON: Chest radiograph June 30, [address] earlier today TECHNIQUE: Portable frontal view of the chest was obtained. FINDINGS: Once again seen are diffuse infiltrates right greater than left along with bilateral pleural effusions, mostly subpulmonic. Comparison of modalities is difficult but one compares wall cleaner radiograph from chest CT earlier today to the appearance of the pulmonary parenchyma on the current study the findings appear worse. Mild cardiac enlargement is present. There is increased opacity in the retrocardiac region which could be secondary to infiltrate/collapse. IMPRESSION: Worsening bilateral diffuse infiltrates, right greater than left with associated left basilar atelectasis. Bilateral pleural effusions.
[2018-07-01 19:44] LABS: ABSOLUTE BASOPHIL COUNT 0 /CUMM (0.0-0.2); ABSOLUTE EOSINOPHIL COUNT 0 /CUMM (0.0-0.7); ABSOLUTE GRANULOCYTE CT 21.2 /CUMM (1.4-6.5); ABSOLUTE LYMPH COUNT 0.6 /CUMM (1.2-3.4); ABSOLUTE MONOCYTE COUNT 0.8 /CUMM (0.10-0.60); BASOPHIL % 0 % (0.0-2.0); EOSINOPHIL % 0 % (0-5); HEMATOCRIT 30.5 % (37-47); MEAN CORPUSCULAR HGB 24.8 PG (27.0-31.0); MEAN CORPUSCULAR HGB CONC 33.5 G/DL (33.0-37.0); MEAN CORPUSCULAR VOLUME 73.9 FL (81.0-99.0); MEAN PLATELET VOLUME 8.7 FL (7.4-10.4); PLATELET COUNT 397 /CUMM (130-400); RED BLOOD CELL CT 4.13 /CUMM (4.20-5.40)
--- NOTE | 2018-07-01 19:59 | PN- Cardiology ---
Subjective Subjective: * Breathing better this morning with some decompensation reported this evening. Cough is more prominent however. * potassium is 3.3 Objective Vital Signs and I&Os Vital Signs Date Time Temp Pulse Resp B/P B/P Pulse O2 O2 Flow FiO2 Mean Ox Delivery Rate 07/01 1939 93 Nasal 55% Cannula 07/01 1919 97.1 24 07/01 1914 113 24 158/68 86 Venti Mask 40% 07/01 1813 92 Nasal 2.0L Cannula 07/01 1805 104 24 142/56 90 Nasal 4.0L Cannula 07/01 1800 22 85 Nasal 2.0L Cannula 07/01 1600 Nasal 2.0L Cannula 07/01 1416 98.6 78 20 130/50 99 07/01 0828 77 122/66 07/01 0827 77 122/66 07/01 0808 95 Nasal 1.0L Cannula 07/01 08 93 Nasal 2.0L Cannula 07/01 0633 97.7 77 20 122/66 98 Nasal Cannula 06/30 2307 Nasal 2.0L Cannula 06/30 2155 Nasal 2.0L Cannula 06/30 2132 97.7 97 20 132/60 98 Nasal 5.0L Cannula Intake & Output 07/01 1600 07/01 0800 / 0000 06/30 1600 06/30 0800 06/30 0000 Intake Total 650 200 50 180 Output Total 950 300 Balance -300 -100 50 180 Intake, Oral 650 200 50 180 Number 2 Bowel Movements Output, Urine 950 300 Patient 164 lb 161 lb Weight Weight Bed scale Bed scale Measurement Method Physical Exam: General: WD/WN female in NAD; alert and oriented x 3 HEENT: NC/AT, PERRL, EOMI Neck: no JVD, no carotid bruit Heart: irregular with 3/6 systolic murmur at the apex, 3/6 systolic murmur at the LLSB and 3/6 systolic murmur at the RUSB Lungs: scant crackles at the bases bilaterally Extremities: no edema Assessment/Plan Assessment/Plan * Although this patient has a history of COPD and may have a slight exacerbation of this condition or even pneumonia, I am more suspicious of mild decompensated CHF from valvular heart disease. In consideration of her extensive valvular disease, comorbidities and advance age I think that invasive management is high risk. The patient is not inclined to pursue surgery at this time. * Diurese with Lasix at 40mg IV daily with careful monitoring of her BUN, creatinine and potassium. Continue afterload reduction with Losartan. Give an extra 40mg of IV lasix. Begin Bipap for increased respiratory rate with respiratory distress. * Continue Xarelto for stroke prophylaxis. Continue telemetry? Yes
[2018-07-01 20:01] LABS: WHITE BLOOD CELL COUNT 22.5 /CUMM (4.8-10.8)
--- NOTE | 2018-07-01 20:24 | Event Note ---
See Addendum Event Note Event Note: S: Patient was transferred to ICU for desaturation up to 86% to 84% B: The patient is 87-year-old female with past medical history of congestive heart failure in setting of valvular disease MS and ES, pulmonary hypertension, COPD with recurrent bronchospasm, non-small cell lung cancer and carcinoid tumor with bilateral lower lobe lobectomies in 2006 and 2018, status post radiation and radiation pneumonitis. Atrial fibrillation on Xarelto. The patient is admitted to telemetry floor for evaluation and management of possible acute CHF exacerbation with diuresis Lasix 40 mg IV twice daily she is also on 40 mg every 12 Solu-Medrol Around 7 PM the patient desaturated to 86. She received 20 mg dose of IV Lasix and breathing treatment. She desaturated to 84% at that point patient is a 40 mg of IV Lasix in was transferred to ICU. Blood work troponin EKG and chest x- ray was ordered by telemetry team A/P On my evaluation patient was short of breath. However reported improvement in her symptoms. She was started on high flow by respiratory therapist. Patient reported she was doing well until this evening when she used the bathroom and after that she became short of breath. Vital signs she is afebrile tachycardic up to 113 blood pressure 158/68 respiratory rate 24. Her oxygen saturation was dropping up to 88% on high flow while talking to me. On examination there is diffuse wheezing and crackles at the bases however no JVD appreciated there is bilateral lower extremity edema 2+ pitting. Heart rate irregular with 3/6 systolic murmur at the apex, 3/6 systolic murmur at the LLSB and 3/6 systolic murmur at the RUSB * CBC she has WBC count of 20 2.5H/H is stable. * ICU bundle is significant for hyponatremia and hypokalemia 3.3 magnesium is 2.2. * D-dimer is 322 which is okay for his age * CXR Worsening bilateral diffuse infiltrates, right greater than left with associated left basilar atelectasis. Bilateral pleural effusions. * Troponins is negative with EKG showing afib and mild ST depression and lateral leads as compared to previous EKG The patient appears to be in acute pulmonary edema 2/2 acute decompensation of CHF * Vitals Q1 * Also will get an ABG. * Patient should be started on BiPAP in setting of increased respiratory rate with respiratory distress. * Going to check a lactic acid level, Dr. Dick wanted the patient to be covered broadly with vancomycin and ceftazidime for now. Patient is afebrile and the white cell count is representation of steroid use rather than infection * will do BCx2, UC LRC before hanging the abx * We will repeat troponin and EKG after 6 hours@ 1am patient should get an echo which has been already ordered * Will Place Joseph catheter and to monitor strict ins and outs. * Continue diuresis with IV Lasix * Will continue Xarelto * Potassium repletion * Monitor electrolytes and replete accordingly Patient has been evaluated by rehabilitation specialist Dr. Boggs and I have talked to Dr. Dick over the phone and they are in agreement of above plan. I have informed Dr. Lopez. I have also spoken to patient's daughter and informed her regarding her current clinical condition. All of her questions were answered. she would like to be updated regarding her progress ADDENDUM: Night Hospitalist Attending Addendum Note: Patient is seen and examined with Dr. Narayanan. I agree with above findings, assessment and plan of care. Patient developed acute SOB/BUSBY with desat to 80's after she went to the bathroom. Patient has crackles and wheezing on exam with concern of CHF exacerbaton. She got lasix 40 mg IV x1. She is transferred to ICU for closer monitoring and use of high flow NC. Patient states her breathing is better with O2 sat 93% on high flow NC. EKG shows A fib with [address] depression in lateral leads. Troponin negative. Follow serial troponin/EKG. Organ Builder and Pulmonlogist is informed of above event. Ha Boggs MD FACP
[2018-07-01 20:43] LABS: GRANULOCYTE % 94.1 % (42.2-75.2)
[2018-07-02] VITALS: BP 138/62
[2018-07-02 04:31] LABS: ABSOLUTE BASOPHIL COUNT 0 /CUMM (0.0-0.2); ABSOLUTE EOSINOPHIL COUNT 0 /CUMM (0.0-0.7); ABSOLUTE GRANULOCYTE CT 25.7 /CUMM (1.4-6.5); ABSOLUTE LYMPH COUNT 0.6 /CUMM (1.2-3.4); ABSOLUTE MONOCYTE COUNT 0.9 /CUMM (0.10-0.60); BASOPHIL % 0.1 % (0.0-2.0); EOSINOPHIL % 0 % (0-5); GRANULOCYTE % 94.3 % (42.2-75.2); HEMATOCRIT 27.9 % (37-47); MEAN CORPUSCULAR HGB 24.8 PG (27.0-31.0); MEAN CORPUSCULAR HGB CONC 33.5 G/DL (33.0-37.0); MEAN CORPUSCULAR VOLUME 74.1 FL (81.0-99.0); MEAN PLATELET VOLUME 8.6 FL (7.4-10.4); PLATELET COUNT 326 /CUMM (130-400); RBC DISTRIBUTION WIDTH 19.2 % (11.5-14.5); RED BLOOD CELL CT 3.76 /CUMM (4.20-5.40); WHITE BLOOD CELL COUNT 27.2 /CUMM (4.8-10.8)
--- NOTE | 2018-07-02 07:28 | PN- Resident CRCU ---
Subjective HPI/CRCU Issues: Decompensated CHF in the setting of valvular heart disease (mitral stenosis), now with worsening acute hypoxemic respiratory failure secondary to pulmonary edema. History of COPD with recurrent bronchospasm. 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 Atrial fibrillation, on Xarelto, metoprolol and diltiazem. Multifocal infiltrates and bilateral pleural effusions. Leukocytosis likely secondary to steroids, underlying infectious process cannot be excluded. CT chest shows left lower lobe consolidation noting a superimposed infectious process cannot be excluded. 24 Hour Events: No overnight events. Patient remained on BiPAP and high flow oxygen 60%. Patient seen and examined this morning. She denied chest pain, palpitation, nausea, vomiting, chills, fever, abdominal pain dysuria. Patient was on high flow oxygen 60% and maintaining saturation 96%. Objective Vital Signs & I&O Last 8 Hrs of Vitals and I&O: Intake & Output 07/02 1600 07/02 0800 07/02 0000 Intake Total 620 120 Output Total 1050 350 Balance -430 -230 Intake, IV 250 0 Intake, Oral 370 120 Number 0 0 Bowel Movements Output, Urine 1050 350 Patient 156 lb Weight Weight Bed scale Measurement Method Laboratory Tests 07/02 07/02 07/02 0840 0738 0410 Chemistry Sodium (137 - 145 mmol/L) 136 L Potassium (3.5 - 5.1 mmol/L) 3.9 Chloride (98 - 107 mmol/L) 104 Carbon Dioxide (22 - 30 mmol/L) 23 Anion Gap (5 - 16) 9 BUN (7 - 17 mg/dL) 32 H Creatinine (0.5 - 1.0 mg/dL) 0.7 Estimated GFR (>60 ml/min) > 60 Glucose (65 - 99 mg/dL) 155 H Lactic Acid (0.7 - 2.1 mmol/L) 2.8 H Cancelled 2.6 H Calcium (8.4 - 10.2 mg/dL) 8.8 Phosphorus (2.5 - 4.5 mg/dL) 4.0 Magnesium (1.6 - 2.3 mg/dL) 2.0 Total Bilirubin (0.2 - 1.3 mg/dL) 0.6 AST (14 - 36 U/L) 28 ALT (9 - 52 U/L) 28 Troponin I (< 0.11 ng/ml) 0.01 Albumin (3.5 - 5.0 g/dL) 3.4 L Hematology CBC w Diff MAN DIFF ORDERED WBC (4.8 - 10.8 /CUMM) 27.2 H RBC (4.20 - 5.40 /CUMM) 3.76 L Hgb (12.0 - 16.0 G/DL) 9.3 L Hct (37 - 47 %) 27.9 L MCV (81.0 - 99.0 FL) 74.1 L MCH (27.0 - 31.0 PG) 24.8 L MCHC (33.0 - 37.0 G/DL) 33.5 RDW (11.5 - 14.5 %) 19.2 H Plt Count (130 - 400 /CUMM) 326 MPV (7.4 - 10.4 FL) 8.6 Gran % (42.2 - 75.2 %) 94.3 H Lymphocytes % (20.5 - 51.1 %) 2.1 L Monocytes % (1.7 - 9.3 %) 3.5 Eosinophils % (0 - 5 %) 0 Basophils % (0.0 - 2.0 %) 0.1 Absolute Granulocytes (1.4 - 6.5 /CUMM) 25.7 H Segmented Neutrophils (42.2 - 75.2 %) 99 H Absolute Lymphocytes (1.2 - 3.4 /CUMM) 0.6 L Monocytes (1.7 - 9.3 %) 1 L Absolute Monocytes (0.10 - 0.60 /CUMM) 0.9 H Absolute Eosinophils (0.0 - 0.7 /CUMM) 0 Absolute Basophils (0.0 - 0.2 /CUMM) 0 Platelet Estimate (ADEQUATE) ADEQUATE Polychromasia 1+ Poikilocytosis 1+ Anisocytosis 1+ Microcytic Cells 1+ Ovalocytes 1+ Other Body Source Fld Total RBCs Counted (%) 100 07/02 Blood Gas pH (7.35 - 7.45 PH) 7.50 H pCO2 (35 - 45 TORR) 28 L pO2 (80 - 100 TORR) 72 L HCO3 (21 - 28 MEQ/L) 22 ABG O2 Sat (Measured) (>96.0 %) 94.0 L P-50 (Temp Corrected) N Carboxyhemoglobin (1.5 - 5.0 %) 0.3 L O2 Concentration % 60 Temperature (97.0 - 100.0 FARH) 97.0 O2 Delivery Method HFNC Chemistry Sodium (137 - 145 mmol/L) 137 Potassium (3.5 - 5.1 mmol/L) 4.1 Chloride (98 - 107 mmol/L) 104 Carbon Dioxide (22 - 30 mmol/L) 25 Anion Gap (5 - 16) 8 BUN (7 - 17 mg/dL) 33 H Creatinine (0.5 - 1.0 mg/dL) 0.7 Estimated GFR (>60 ml/min) > 60 BUN/Creatinine Ratio (7 - 25 %) 47.1 H Lactic Acid (0.7 - 2.1 mmol/L) 2.3 H 3.3 H Magnesium (1.6 - 2.3 mg/dL) 2.2 Troponin I (< 0.11 ng/ml) 0.02 Miscellaneous Phlebotomy Draw Site LEFT RADIAL 07/01 Chemistry Sodium (137 - 145 mmol/L) 134 L Potassium (3.5 - 5.1 mmol/L) 3.3 L Chloride (98 - 107 mmol/L) 99 Carbon Dioxide (22 - 30 mmol/L) 21 L Anion Gap (5 - 16) 14 BUN (7 - 17 mg/dL) 28 H Creatinine (0.5 - 1.0 mg/dL) 1.0 Estimated GFR (>60 ml/min) 52 L BUN/Creatinine Ratio (7 - 25 %) 28.0 H Calcium (8.4 - 10.2 mg/dL) 9.3 Phosphorus (2.5 - 4.5 mg/dL) 3.7 Magnesium (1.6 - 2.3 mg/dL) 2.2 Total Bilirubin (0.2 - 1.3 mg/dL) 0.5 Direct Bilirubin (< 0.4 mg/dL) 0.2 AST (14 - 36 U/L) 28 ALT (9 - 52 U/L) 25 Alkaline Phosphatase (<127 U/L) 79 Troponin I (< 0.11 ng/ml) < 0.01 Total Protein (6.3 - 8.2 g/dL) 6.7 Albumin (3.5 - 5.0 g/dL) 4.0 Coagulation D-Dimer High Sensitivty (0 - 243 ng/ml) 322 H Hematology CBC w Diff NO MAN DIFF REQ WBC (4.8 - 10.8 /CUMM) 22.5 H RBC (4.20 - 5.40 /CUMM) 4.13 L Hgb (12.0 - 16.0 G/DL) 10.2 L Hct (37 - 47 %) 30.5 L MCV (81.0 - 99.0 FL) 73.9 L MCH (27.0 - 31.0 PG) 24.8 L MCHC (33.0 - 37.0 G/DL) 33.5 RDW (11.5 - 14.5 %) 19.0 H Plt Count (130 - 400 /CUMM) 397 MPV (7.4 - 10.4 FL) 8.7 Gran % (42.2 - 75.2 %) 94.1 H Lymphocytes % (20.5 - 51.1 %) 2.5 L Monocytes % (1.7 - 9.3 %) 3.4 Eosinophils % (0 - 5 %) 0 Basophils % (0.0 - 2.0 %) 0 Absolute Granulocytes (1.4 - 6.5 /CUMM) 21.2 H Absolute Lymphocytes (1.2 - 3.4 /CUMM) 0.6 L Absolute Monocytes (0.10 - 0.60 /CUMM) 0.8 H Absolute Eosinophils (0.0 - 0.7 /CUMM) 0 Absolute Basophils (0.0 - 0.2 /CUMM) 0 Exam General Appearance: well developed/nourished, no apparent distress, alert Head: atraumatic, normal appearance Neck: normal inspection Respiratory: normal breath sounds, chest non-tender Cardiovascular: irregularly irregular Gastrointestinal: normal bowel sounds, soft Extremities: normal inspection, B/L PEDAL EDEMA Skin Temp/Moisture Exam: Warm/Dry Sepsis Skin Exam (color): Normal for Ethnicity Current Medications: Current Medications Sig/Heena Start time Last Medication Dose Route Stop Time Status Admin Acetaminophen 650 MG Q6PRN PRN 06/30 1630 AC PO Albuterol Sulfate 3 ML BID 07/01 0900 AC 07/02 INH 0814 Albuterol Sulfate 2 PUF Q4-6 PRN PRN 06/30 1615 AC INH Aspirin Buffered 81 MG DAILY 06/30 1607 AC 07/02 PO 0901 Atorvastatin Calcium 20 MG QPM 06/30 2100 AC 07/01 PO 2137 Benzonatate 100 MG TID 07/01 0430 AC 07/02 PO 0901 Budesonide/ 2 PUF BID 06/30 2100 AC 07/02 Formoterol Fumarate INH 0902 Ceftazidime 1,000 MG Q12 07/01 2100 AC 07/02 IV 0901 Diltiazem HCl 120 MG DAILY 06/30 1608 AC 07/02 PO 0902 Fluticasone 2 SPRAY AT BEDTIME 06/30 2100 AC 07/01 Propionate MARCO 2135 Furosemide 60 MG BID 07/02 2100 AC IV Furosemide 20 MG ONCE ONE 07/02 1200 DC IV 07/02 1201 Furosemide 60 MG ONCE ONE 07/02 1145 CAN IV 07/02 1146 Furosemide 0 .STK-MED ONE 07/02 0038 DC IV Furosemide 40 MG ONCE ONE 07/02 0030 DC 07/02 IV 07/02 0031 0037 Furosemide 40 MG ONCE ONE 07/01 1915 DC 07/01 IV 07/01 1916 1909 Furosemide 20 MG ONCE ONE 07/01 1830 DC 07/01 IV 07/01 1831 1831 Furosemide 40 MG DAILY 07/01 0900 DC 07/02 IV 0907 Guaifenesin 1,200 MG Q12 06/30 2100 AC 07/02 PO 0902 Losartan Potassium 50 MG BID 06/30 2100 AC 07/02 PO 0902 Magnesium Oxide 400 MG DAILY 06/30 1610 AC 07/02 PO 0900 Methylprednisolone 40 MG Q12 07/01 0900 AC 07/02 IV 0901 Metoprolol Succinate 25 MG DAILY 06/30 1610 AC 07/02 PO 0902 Omeprazole 20 MG DAILY AC 06/30 1608 AC 07/02 PO 0651 Potassium Chloride 40 MEQ ONCE ONE 07/02 0845 DC 07/02 PO 07/02 0846 0900 Potassium Chloride 40 MEQ ONCE ONE 07/01 2030 DC 07/01 PO 07/01 2031 2135 Rivaroxaban 15 MG DAILY 06/30 1610 AC 07/02 PO 0902 Vancomycin HCl 1,000 MG 2100 07/01 2100 AC 07/01 Sodium Chloride 250 ML IV 2304 Impression/Plan Impression/Problem List Impression: 87 year old female with a PMH of COPD, 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 Patient was transferred overnight to ICU in the setting of worsening breathing possibly due to pulmonary edema or congestive heart failure with acute hypoxic respiratory failure. Chest x-ray showed bilateral airspace opacities. Patient was given IV Lasix overnight. She remained on BiPAP and high flow oxygen 60%. Patient was pancultured and started on empiric antibiotics. Acute hypoxic respiratory failure: -Possibly due to acute on chronic heart failure, could be due to COPD exacerbation. Patient has bilateral opacities and infiltrates in the lung although she remained afebrile. -Continue high flow oxygen 60% and maintaining her saturation above 92% -Continue BiPAP when necessary -Continue Solu-Medrol 40 mg every 12 hourly -Continue Symbicort, Flonase, teaslon, Mucinex -Continue empiric ceftaz and vancomycin until ruling out pneumonia. -TRC nebulization as needed -Follow-up sputum culture -Follow-up ID consult Acute on chronic CHF: -Patient's last echocardiogram showed ejection fraction 6570 percent with mitral valve stenosis and severe pulmonary hypertension. -Patient is being managed with decrease preload and afterload reduction. -Continue Lasix 60 mg twice a day -Continue losartan for afterload reduction -Daily weight -Daily input and output monitoring -Repeat potassium and magnesium as needed History of atrial fibrillation: -Continue Xarelto for anticoagulation -Continue diltiazem and metoprolol for rate control Leukocytosis: -Patient has WBC 27.2 today, possibly due to steroid use. -We will keep monitoring her wbc and for any signs of infection. History of GERD: -Continue omeprazole DVT prophylaxis: Mechanical and patient is already on Xarelto CODE STATUS: Full code Problem List: 1. Leukocytosis 2. Acute respiratory failure with hypoxia 3. COPD (chronic obstructive pulmonary disease) 4. CHF (congestive heart failure) Pain Ratin Pain Location: none Tomorrow's Labs & Rationales: cbc/icu bundle Plan DVT/Prophylaxis: mechanical, pharmacological
--- NOTE | 2018-07-02 07:34 | RADIOLOGY REPORT ---
EXAMINATION: XR PORTABLE CHEST CLINICAL INFORMATION: Shortness of breath. CHF. COMPARISON: Chest x-ray 07/01/2018 TECHNIQUE: Portable frontal view of the chest was obtained. FINDINGS: Stable cardiac silhouette. Diffuse patchy opacities persist throughout both lungs, slightly worse on the right. There is no significant interval change. Blunting of the costophrenic angles suggests a tiny amount of pleural fluid bilaterally. IMPRESSION: Stable bilateral airspace disease.
[2018-07-02 08:00] VITALS: BP 144/60
--- NOTE | 2018-07-02 09:24 | PN- CRCU ---
Subjective HPI/Critical Care Issues: Overnight events reviewed. The patient was transferred to the critical care unit in the setting of worsening pulmonary edema/congestive heart failure with acute hypoxemic respiratory failure. Chest x-ray showed bilateral airspace opacities. The patient was given IV Lasix for diuresis overnight. Additionally she was placed on high flow oxygen as well as BiPAP overnight, noting she was requiring 60%. The patient is currently back on to high flow oxygen at 60% with saturations in the mid 90s. She has had adequate urine output. Chest x-ray confirms pulmonary edema. Of note, the patient was pancultured and started on empiric antibiotics. Her white blood cell count today is 27,000, however she has been receiving IV steroids. Objective Current Medications: Current Medications Sig/Heena Start time Last Medication Dose Route Stop Time Status Admin Acetaminophen 650 MG Q6PRN PRN 06/30 1630 AC PO Albuterol Sulfate 3 ML BID 07/01 0900 AC 07/02 INH 0814 Albuterol Sulfate 2 PUF Q4-6 PRN PRN 06/30 1615 AC INH Aspirin Buffered 81 MG DAILY 06/30 1607 AC 07/02 PO 0901 Atorvastatin Calcium 20 MG QPM 06/30 2100 AC 07/01 PO 2137 Benzonatate 100 MG TID 07/01 0430 AC 07/02 PO 0901 Budesonide/ 2 PUF BID 06/30 2100 AC 07/02 Formoterol Fumarate INH 0902 Ceftazidime 1,000 MG Q12 07/01 2100 AC 07/02 IV 0901 Diltiazem HCl 120 MG DAILY 06/30 1608 AC 07/02 PO 0902 Fluticasone 2 SPRAY AT BEDTIME 06/30 2100 AC 07/01 Propionate MARCO 2135 Furosemide 0 .STK-MED ONE 07/02 0038 DC IV Furosemide 40 MG ONCE ONE 07/02 0030 DC 07/02 IV 07/02 0031 0037 Furosemide 40 MG ONCE ONE 07/01 1915 DC 07/01 IV 07/01 1916 1909 Furosemide 20 MG ONCE ONE 07/01 1830 DC 07/01 IV 07/01 1831 1831 Furosemide 40 MG DAILY 07/01 0900 AC 07/02 IV 0907 Guaifenesin 1,200 MG Q12 06/30 2100 AC 07/02 PO 0902 Losartan Potassium 50 MG BID 06/30 2100 AC 07/02 PO 0902 Magnesium Oxide 400 MG DAILY 06/30 1610 AC 07/02 PO 0900 Methylprednisolone 40 MG Q12 07/01 0900 AC 07/02 IV 0901 Metoprolol Succinate 25 MG DAILY 06/30 1610 AC 07/02 PO 0902 Omeprazole 20 MG DAILY AC 06/30 1608 AC 07/02 PO 0651 Potassium Chloride 40 MEQ ONCE ONE 07/02 0845 DC 07/02 PO 07/02 0846 0900 Potassium Chloride 40 MEQ ONCE ONE 07/01 2030 DC 07/01 PO 07/01 2031 2135 Rivaroxaban 15 MG DAILY 06/30 161 AC 07/02 PO 0902 Vancomycin HCl 1,000 MG 2100 07/01 2100 AC 07/01 Sodium Chloride 250 ML IV 2304 Physical Exam General Appearance: well developed/nourished, no apparent distress, alert, awake , comfortable Head: atraumatic Eyes: Bilateral: PERRL. Neck: supple Respiratory: Minimal wheezing, decreased breath sounds at lung bases, diffuse crackles Cardiovascular: systolic murmur, irregularly irregular Gastrointestinal: normal bowel sounds, soft, non-tender Extremities: bilateral lower extremity edema Skin: intact, normal color, warm/dry Vital Signs & I&O Last 24 Hrs of Vitals and I&O: Vital Signs Date Time Temp Pulse Resp B/P B/P Pulse O2 O2 Flow FiO2 Mean Ox Delivery Rate 07/02 09 96 158/81 07/02 0902 96 158/81 07/02 0857 94 Nasal 60% Cannula 07/02 0857 75 94 07/02 0621 91 96 07/02 0400 96 BIPAP 60% 07/02 0333 82 95 07/02 0000 90 96 07/02 0000 95 BIPAP 60% 07/02 0000 97.0 87 31 138/62 95 BIPAP 60% 07/01 2209 94 BIPAP 60% 07/01 2203 97 94 07/01 2135 98 164/68 07/01 2000 91 Nasal 60% Cannula 07/01 193 93 Nasal 55% Cannula 07/01 1919 97.1 24 07/01 1914 113 24 158/68 86 Venti Mask 40% 07/01 1813 92 Nasal 2.0L Cannula 07/01 1805 104 24 142/56 90 Nasal 4.0L Cannula 07/01 1800 22 85 Nasal 2.0L Cannula 07/01 1600 Nasal 2.0L Cannula 07/01 1416 98.6 78 20 130/50 99 Intake & Output 07/02 1600 07/02 0800 07/02 0000 Intake Total 620 120 Output Total 1050 350 Balance -430 -230 Intake, IV 250 0 Intake, Oral 370 120 Number 0 0 Bowel Movements Output, Urine 1050 350 Patient 156 lb Weight Weight Bed scale Measurement Method Results Last 24 Hrs of Lab Results: Laboratory Tests 07/02/18 0840: Lactic Acid Pending, Troponin I Pending 07/02/18 0410: Anion Gap 9, Estimated GFR > 60, Glucose 155 H, Lactic Acid 2.6 H, Calcium 8.8 , Phosphorus 4.0, Magnesium 2.0, Total Bilirubin 0.6, AST 28, ALT 28, Albumin 3.4 L, CBC w Diff MAN DIFF ORDERED, RBC 3.76 L, MCV 74.1 L, MCH 24.8 L, MCHC 33.5, RDW 19.2 H, MPV 8.6, Gran % 94.3 H, Lymphocytes % 2.1 L, Monocytes % 3.5, Eosinophils % 0, Basophils % 0.1, Absolute Granulocytes 25.7 H, Segmented Neutrophils 99 H, Absolute Lymphocytes 0.6 L, Monocytes 1 L, Absolute Monocytes 0.9 H, Absolute Eosinophils 0, Absolute Basophils 0, Platelet Estimate ADEQUATE, Polychromasia 1+, Poikilocytosis 1+, Anisocytosis 1+, Microcytic Cells 1+, Ovalocytes 1+, Fld Total RBCs Counted 100 07/02/18 003: Lactic Acid 2.3 H 07/02/18 0032: Anion Gap 8, Estimated GFR > 60, BUN/Creatinine Ratio 47.1 H, Magnesium 2.2, Troponin I 0.02 07/01/182104: Lactic Acid 3.3 H 07/01/182019: pH 7.50 H, pCO2 28 L, pO2 72 L, HCO3 22, ABG O2 Sat (Measured) 94.0 L, P-50 (Temp Corrected) N, Carboxyhemoglobin 0.3 L, O2 Concentration % 60, Temperature 97.0, O2 Delivery Method HFNC, Phlebotomy Draw Site LEFT RADIAL 07/01/182000: D-Dimer High Sensitivty 322 H 07/01/18 1915: Anion Gap 14, Estimated GFR 52 L, BUN/Creatinine Ratio 28.0 H, Calcium 9.3, Phosphorus 3.7, Magnesium 2.2, Total Bilirubin 0.5, Direct Bilirubin 0.2, AST 28 , ALT 25, Alkaline Phosphatase 79, Troponin I < 0.01, Total Protein 6.7, Albumin 4.0, CBC w Diff NO MAN DIFF REQ, RBC 4.13 L, MCV 73.9 L, MCH 24.8 L, MCHC 33.5, RDW 19.0 H, MPV 8.7, Gran % 94.1 H, Lymphocytes % 2.5 L, Monocytes % 3.4, Eosinophils % 0, Basophils % 0, Absolute Granulocytes 21.2 H, Absolute Lymphocytes 0.6 L, Absolute Monocytes 0.8 H, Absolute Eosinophils 0, Absolute Basophils 0 Diagnostic Data CXR Findings: Diffuse patchy opacities persist throughout both lungs, slightly worse on the right. There is no significant interval change. Blunting of the costophrenic angles suggests a tiny amount of pleural fluid bilaterally. CT Scan Findings: 1. Bilateral airspace disease and bilateral pleural effusions in association with a left atrial dilatation consistent with pulmonary edema. Of these findings have improved compared to the previous chest CTs. 2. Focal consolidation in the left lower lobe extending to the major fissure. A concurrent pneumonia cannot be excluded. This finding is unchanged compared to prior chest CT of 01/20/2018 but improved compared to study of 08/28/2017. Impression/Plan Impression/Plan Impression/Plan: 1. Decompensated CHF in the setting of valvular heart disease (mitral stenosis) , now with worsening acute hypoxemic respiratory failure secondary to pulmonary edema. 2. History of COPD with recurrent bronchospasm. 3. 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 4. Atrial fibrillation, on Xarelto, metoprolol and diltiazem. 5. Multifocal infiltrates and bilateral pleural effusions. 6. Leukocytosis likely secondary to steroids, underlying infectious process cannot be excluded. CT chest shows left lower lobe consolidation noting a superimposed infectious process cannot be excluded. Recommendations: * Continue high flow oxygen to maintain saturations greater than 92%. * Continue BiPAP if the patient's work of breathing increases. * No need for routine ABGs unless the patient's respiratory status changes. * Monitor strict I's and O's. Maintain negative fluid balance. Continue IV Lasix and follow electrolytes/renal function. * Consider increasing Lasix to twice daily at a minimum, will discuss with cardiology. * Continue nebs/total respiratory care. * Continue Solu-Medrol 40 mg IV every 12 hours. Will taper slowly. * Continue vancomycin and ceftazidime. * Follow-up cultures. * Please request an ID consult. * Continue Symbicort, Flonase, Tessalon and Mucinex. * DVT prophylaxis at all times -on Xarelto. * Continue all supportive care.
--- NOTE | 2018-07-02 10:07 | PN- Cardiology ---
Subjective Subjective: * Patient had a rapid decompensation in her breathing last evening but feels somewhat improved this morning after being on BIPAP and with high flow oxygen. She was diuresed last evening. * increased WBC count on steroids with infiltrate noted on chest X ray Objective Vital Signs and I&Os Vital Signs Date Time Temp Pulse Resp B/P B/P Pulse O2 O2 Flow FiO2 Mean Ox Delivery Rate 07/02 0902 96 158/81 07/02 0902 96 158/81 07/02 0857 94 Nasal 60% Cannula 07/02 0857 75 94 07/02 0621 91 96 07/02 0400 96 BIPAP 60% 07/02 0333 82 95 07/02 0000 90 96 07/02 0000 95 BIPAP 60% 07/02 0000 97.0 87 31 138/62 95 BIPAP 60% 07/01 2209 94 BIPAP 60% 07/01 2203 97 94 07/01 2135 98 164/68 07/01 2000 91 Nasal 60% Cannula 07/01 1939 93 Nasal 55% Cannula 07/01 1919 97.1 24 07/01 1914 113 24 158/68 86 Venti Mask 40% 07/01 1813 92 Nasal 2.0L Cannula 07/01 1805 104 24 142/56 90 Nasal 4.0L Cannula 07/01 1800 22 85 Nasal 2.0L Cannula 07/01 1600 Nasal 2.0L Cannula 07/01 1416 98.6 78 20 130/50 99 Intake & Output 07/02 1600 07/02 0800 / 0000 07/01 1600 07/01 0800 07/01 0000 Intake Total 620 120 650 200 50 Output Total 1050 350 950 300 Balance -430 -230 -300 -100 50 Intake, IV 250 0 Intake, Oral 370 120 650 200 50 Number 0 0 2 Bowel Movements Output, Urine 1050 350 950 300 Patient 156 lb 164 lb Weight Weight Bed scale Bed scale Measurement Method Physical Exam: General: WD/WN female in NAD; alert and oriented x 3 HEENT: NC/AT, PERRL, EOMI Neck: no JVD, no carotid bruit Heart: irregular with 3/6 systolic murmur at the apex, 3/6 systolic murmur at the LLSB and 3/6 systolic murmur at the RUSB Lungs: decreased air movement with occasional wheezes noted bilaterally Extremities: no edema Assessment/Plan Assessment/Plan * This patient is being treated for a pneumonia. It should be noted that this patient has mitral stenosis and will be very intolerant of physiologic stress. As such, she has superimposed CHF which we will attempt to treat via diuresis and afterload reduction. She has a very fragile hemodynamic status however which I do not think will improve without valve repair. We will have this patient evaluated by Dr. Storm although the patient is not currently enthusiastic about pursuing surgery. * Diurese with Lasix at 60mg IV BID with careful monitoring of her BUN, creatinine and potassium. Continue afterload reduction with Losartan. Continue high flow oxygen and Bipap for increased respiratory rate with respiratory distress. * Continue Xarelto for stroke prophylaxis. Continue telemetry? Yes
--- NOTE | 2018-07-02 12:14 | PN- Att Addend ---
Attending Addendum Attending Brief Note Patient decompensated yesterday afternoon became more short of breath in acute respiratory distress had to be transferred to the intensive care unit to be put on BiPAP and high flow oxygen and diuresed. This morning she looks a little improved in no respiratory distress. Patient was seen by Dr. Cano and recommendations were noted. Will have to continue gentle diuresis. On the x- rays she may have an infiltrate 2 and was started on antibiotics. Her white count is elevated but she is also on steroids. Will also get the input from Dr. Jada Turner for have to do any changes She is afebrile. Her lactic acid was elevated Intake & Output 07/02 0400 Intake Total 620 120 850 50 180 Output Total 2409 768 3204 Balance -430 -230 -400 50 180 Intake, IV 250 0 Intake, Oral 370 120 850 50 180 Number 0 0 2 Bowel Movements Output, Urine 0547 730 1968 Patient 156 lb 164 lb 161 lb Weight Weight Bed scale Bed scale Bed scale Measurement Method Laboratory Tests 07/02/18 0840: Lactic Acid 2.8 H, Troponin I 0.01 07/02/18 0738: Lactic Acid Cancelled 07/02/18 0410: Anion Gap 9, Estimated GFR > 60, Glucose 155 H, Lactic Acid 2.6 H, Calcium 8.8 , Phosphorus 4.0, Magnesium 2.0, Total Bilirubin 0.6, AST 28, ALT 28, Albumin 3.4 L, CBC w Diff MAN DIFF ORDERED, RBC 3.76 L, MCV 74.1 L, MCH 24.8 L, MCHC 33.5, RDW 19.2 H, MPV 8.6, Gran % 94.3 H, Lymphocytes % 2.1 L, Monocytes % 3.5, Eosinophils % 0, Basophils % 0.1, Absolute Granulocytes 25.7 H, Segmented Neutrophils 99 H, Absolute Lymphocytes 0.6 L, Monocytes 1 L, Absolute Monocytes 0.9 H, Absolute Eosinophils 0, Absolute Basophils 0, Platelet Estimate ADEQUATE, Polychromasia 1+, Poikilocytosis 1+, Anisocytosis 1+, Microcytic Cells 1+, Ovalocytes 1+, Fld Total RBCs Counted 100 07/02/18 0032: Lactic Acid 2.3 H 07/02/18 0032: Anion Gap 8, Estimated GFR > 60, BUN/Creatinine Ratio 47.1 H, Magnesium 2.2, Troponin I 0.02 07/01/18 2105: Lactic Acid 3.3 H 07/01/182019: pH 7.50 H, pCO2 28 L, pO2 72 L, HCO3 22, ABG O2 Sat (Measured) 94.0 L, P-50 (Temp Corrected) N, Carboxyhemoglobin 0.3 L, O2 Concentration % 60, Temperature 97.0, O2 Delivery Method HFNC, Phlebotomy Draw Site LEFT RADIAL 07/01/182000: D-Dimer High Sensitivty 322 H 07/01/181914: Anion Gap 14, Estimated GFR 52 L, BUN/Creatinine Ratio 28.0 H, Calcium 9.3, Phosphorus 3.7, Magnesium 2.2, Total Bilirubin 0.5, Direct Bilirubin 0.2, AST 28 , ALT 25, Alkaline Phosphatase 79, Troponin I < 0.01, Total Protein 6.7, Albumin 4.0, CBC w Diff NO MAN DIFF REQ, RBC 4.13 L, MCV 73.9 L, MCH 24.8 L, MCHC 33.5, RDW 19.0 H, MPV 8.7, Gran % 94.1 H, Lymphocytes % 2.5 L, Monocytes % 3.4, Eosinophils % 0, Basophils % 0, Absolute Granulocytes 21.2 H, Absolute Lymphocytes 0.6 L, Absolute Monocytes 0.8 H, Absolute Eosinophils 0, Absolute Basophils 0 07/01/18 0640: Anion Gap 7, Estimated GFR > 60, BUN/Creatinine Ratio 25.7 H, CBC w Diff MAN DIFF ORDERED, RBC 3.79 L, MCV 73.1 L, MCH 24.6 L, MCHC 33.7, RDW 18.5 H, MPV 9.2, Gran % 87.9 H, Lymphocytes % 8.2 L, Monocytes % 3.9, Eosinophils % 0, Basophils % 0, Absolute Granulocytes 6.8 H, Absolute Lymphocytes 0.6 L, Absolute Monocytes 0.3, Absolute Eosinophils 0, Absolute Basophils 0, Platelet Estimate VERIFIED BY SMEAR, Polychromasia 1+, Hypochromic-Microcytic 1+, Poikilocytosis 1+, Anisocytosis 1+, Microcytic Cells 1+, Ovalocytes 1+, Navid Cells 1+ 06/30/18 0943: Anion Gap 7, Estimated GFR > 60, BUN/Creatinine Ratio 15.7, Glucose 120 H, Calcium 8.8, Total Bilirubin 0.9, AST 20, ALT 29, Alkaline Phosphatase 65, Troponin I < 0.01, [id number] Pept 2410 H, Total Protein 6.1 L, Albumin 3.5, Globulin 2.6, Albumin/Globulin Ratio 1.3, CBC w Diff NO MAN DIFF REQ, RBC 4.11 L, MCV 73.2 L, MCH 24.1 L, MCHC 32.9 L, RDW 18.6 H, MPV 7.9, Gran % 81.6 H, Lymphocytes % 10.0 L, Monocytes % 8.0, Eosinophils % 0.1, Basophils % 0.3, Absolute Granulocytes 8.1 H, Absolute Lymphocytes 1.0 L, Absolute Monocytes 0.8 H, Absolute Eosinophils 0, Absolute Basophils 0 Microbiology 07/02 115 LOWER RESP: Respiratory Culture - ORD 07/02 1150 LOWER RESP: Gram Stain - ORD 07/01 2214 BLOOD: Blood Culture - RES 07/01 2207 BLOOD: Blood Culture - RES 07/01 2110 URINE ROUT: Urine Culture - RES 07/01 1945 UPPER RESP: Surveillance Culture - RECD 07/01 1929 GI: Surveillance Culture - COLB 07/01 134 URINE ROUT: Legionella Antigen - COMP 07/01 134 URINE ROUT: Streptococcus pneumoniae Antigen (M - COMP 07/01 1014 LOWER RESP: Respiratory Culture - COLB 07/01 1014 LOWER RESP: Gram Stain - COLB Microbiology 07/02 115 LOWER RESP: Respiratory Culture - ORD 07/02 115 LOWER RESP: Gram Stain - ORD 07/01 221 BLOOD: Blood Culture - RES 07/01 2207 BLOOD: Blood Culture - RES 07/01 2110 URINE ROUT: Urine Culture - RES 07/01 194 UPPER RESP: Surveillance Culture - RECD 07/01 192 GI: Surveillance Culture - COLB 07/01 1346 URINE ROUT: Legionella Antigen - COMP 07/01 134 URINE ROUT: Streptococcus pneumoniae Antigen (M - COMP 07/01 1014 LOWER RESP: Respiratory Culture - COLB 07/01 1014 LOWER RESP: Gram Stain - COLB Vital Signs Date Time Temp Pulse Resp B/P B/P Pulse O2 O2 Flow FiO2 Mean Ox Delivery Rate 07/02 0902 96 158/81 08 0902 96 158/81 08/ 0857 94 Nasal 60% Cannula 07/02 0857 75 94 08/ 0800 97.6 89 36 144/60 92 Nasal 60% Cannula 07/02 0621 91 96 08/ 0400 96 BIPAP 60% / 0333 82 95 08/09 0000 90 96 08/ 0000 95 BIPAP 60% 08/ 0000 97.0 87 31 138/62 95 BIPAP 60% 07/01 2209 94 BIPAP 60% 07/01 2203 97 94 0808 2135 98 164/68 08/08 2000 91 Nasal 60% Cannula 07/01 1939 93 Nasal 55% Cannula 07/01 1919 97.1 24 0808 1914 113 24 158/68 86 Venti Mask 40% 07/01 1813 92 Nasal 2.0L Cannula 07/01 1805 104 24 142/56 90 Nasal 4.0L Cannula 07/01 1800 22 85 Nasal 2.0L Cannula 07/01 1600 Nasal 2.0L Cannula 07/01 1416 98.6 78 20 130/50 99
[2018-07-02 17:59] VITALS: BP 130/80
[2018-07-02 23:00] VITALS: BP 132/70
[2018-07-03 04:58] LABS: ABSOLUTE BASOPHIL COUNT 0 /CUMM (0.0-0.2); ABSOLUTE EOSINOPHIL COUNT 0 /CUMM (0.0-0.7); ABSOLUTE GRANULOCYTE CT 19.7 /CUMM (1.4-6.5); ABSOLUTE LYMPH COUNT 0.6 /CUMM (1.2-3.4); ABSOLUTE MONOCYTE COUNT 0.4 /CUMM (0.10-0.60); BASOPHIL % 0 % (0.0-2.0); EOSINOPHIL % 0 % (0-5); HEMATOCRIT 27.8 % (37-47); MEAN CORPUSCULAR HGB 24.9 PG (27.0-31.0); MEAN CORPUSCULAR HGB CONC 33.5 G/DL (33.0-37.0); MEAN CORPUSCULAR VOLUME 74.5 FL (81.0-99.0); MEAN PLATELET VOLUME 9.1 FL (7.4-10.4); PLATELET COUNT 313 /CUMM (130-400); RBC DISTRIBUTION WIDTH 19.9 % (11.5-14.5); RED BLOOD CELL CT 3.72 /CUMM (4.20-5.40); WHITE BLOOD CELL COUNT 20.7 /CUMM (4.8-10.8)
[2018-07-03 05:20] LABS: GRANULOCYTE % 95.4 % (42.2-75.2)
--- NOTE | 2018-07-03 07:07 | PN- Resident CRCU ---
Subjective HPI/CRCU Issues: Decompensated CHF in the setting of valvular heart disease (mitral stenosis), now with worsening acute hypoxemic respiratory failure secondary to pulmonary edema. History of COPD with recurrent bronchospasm. 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 Atrial fibrillation, on Xarelto, metoprolol and diltiazem. Multifocal infiltrates and bilateral pleural effusions. Leukocytosis likely secondary to steroids, underlying infectious process cannot be excluded. CT chest shows left lower lobe consolidation noting a superimposed infectious process cannot be excluded. 24 Hour Events: No overnight events. Patient remained afebrile. Seen and examined this morning. She used BiPAP last night. Patient was on high flow 60% and maintaining saturation 97%. Patient denies chest pain, nausea, vomiting, chill, fever, abdominal pain dysuria. Objective Vital Signs & I&O Last 8 Hrs of Vitals and I&O: Intake & Output 07/04 1600 07/04 0800 07/04 0000 Intake Total 640 Output Total 500 Balance 140 Intake, Oral 640 Output, Urine 500 Patient 160 lb Weight Laboratory Tests 07/04 0445 Chemistry Sodium (137 - 145 mmol/L) 135 L Potassium (3.5 - 5.1 mmol/L) 3.9 Chloride (98 - 107 mmol/L) 98 Carbon Dioxide (22 - 30 mmol/L) 28 Anion Gap (5 - 16) 8 BUN (7 - 17 mg/dL) 41 H Creatinine (0.5 - 1.0 mg/dL) 0.7 Estimated GFR (>60 ml/min) > 60 Glucose (65 - 99 mg/dL) 158 H Calcium (8.4 - 10.2 mg/dL) 8.9 Phosphorus (2.5 - 4.5 mg/dL) 4.8 H Magnesium (1.6 - 2.3 mg/dL) 2.3 Total Bilirubin (0.2 - 1.3 mg/dL) 1.3 AST (14 - 36 U/L) 33 ALT (9 - 52 U/L) 34 Albumin (3.5 - 5.0 g/dL) 3.6 Hematology CBC w Diff MAN DIFF ORDERED WBC (4.8 - 10.8 /CUMM) 16.0 H RBC (4.20 - 5.40 /CUMM) 3.69 L Hgb (12.0 - 16.0 G/DL) 9.1 L Hct (37 - 47 %) 27.4 L MCV (81.0 - 99.0 FL) 74.4 L MCH (27.0 - 31.0 PG) 24.6 L MCHC (33.0 - 37.0 G/DL) 33.0 RDW (11.5 - 14.5 %) 19.2 H Plt Count (130 - 400 /CUMM) 318 MPV (7.4 - 10.4 FL) 9.0 Gran % (42.2 - 75.2 %) 92.5 H Lymphocytes % (20.5 - 51.1 %) 5.0 L Monocytes % (1.7 - 9.3 %) 2.3 Eosinophils % (0 - 5 %) 0 Basophils % (0.0 - 2.0 %) 0.2 Absolute Granulocytes (1.4 - 6.5 /CUMM) 14.8 H Segmented Neutrophils (42.2 - 75.2 %) 92 H Band Neutrophils (0.0 - 5.0 %) 1 Absolute Lymphocytes (1.2 - 3.4 /CUMM) 0.8 L Lymphocytes (20.5 - 51.1 %) 3 L Monocytes (1.7 - 9.3 %) 4 Absolute Monocytes (0.10 - 0.60 /CUMM) 0.4 Absolute Eosinophils (0.0 - 0.7 /CUMM) 0 Absolute Basophils (0.0 - 0.2 /CUMM) 0 Platelet Estimate (ADEQUATE) ADEQUATE Polychromasia 1+ Hypochromic-Microcytic 1+ Exam General Appearance: well developed/nourished, no apparent distress, alert Head: atraumatic Neck: normal inspection, supple Respiratory: normal breath sounds, chest non-tender Cardiovascular: irregularly irregular Gastrointestinal: normal bowel sounds, soft Extremities: B/L pedal edema improved. Skin Temp/Moisture Exam: Warm/Dry Sepsis Skin Exam (color): Normal for Ethnicity Current Medications: Current Medications Sig/Heena Start time Last Medication Dose Route Stop Time Status Admin Acetaminophen 650 MG Q6PRN PRN 06/30 1630 AC PO Albuterol Sulfate 3 ML BID 07/01 0900 AC 07/03 INH 1914 Albuterol Sulfate 2 PUF Q4-6 PRN PRN 06/30 1615 AC INH Aspirin Buffered 81 MG DAILY 06/30 1607 AC 07/03 PO 0842 Atorvastatin Calcium 20 MG QPM 06/30 2100 AC 07/03 PO 2100 Benzonatate 100 MG TID 07/01 0430 AC 07/03 PO 210 Budesonide/ 2 PUF BID 06/30 2100 AC 07/03 Formoterol Fumarate INH 2120 Ceftazidime 1,000 MG Q12 07/01 2100 DC 07/03 IV 0839 Diltiazem HCl 120 MG DAILY 06/30 1608 AC 07/03 PO 0842 Fluticasone 2 SPRAY AT BEDTIME 06/30 2100 AC 07/03 Propionate MARCO 2120 Furosemide 60 MG BID 07/02 2100 AC 07/03 IV 2105 Guaifenesin 1,200 MG Q12 06/30 2100 AC 07/03 PO 2100 Losartan Potassium 50 MG BID 06/30 2100 AC 07/03 PO 2100 Magnesium Oxide 400 MG DAILY 06/30 161 AC 07/03 PO 0842 Methylprednisolone 40 MG Q12 07/01 0900 AC 07/03 IV 2101 Metoprolol Succinate 25 MG DAILY 06/30 1610 AC 07/03 PO 0843 Omeprazole 20 MG DAILY AC 06/30 1608 AC 07/04 PO 0627 Potassium Chloride 20 MEQ ONCE ONE 07/03 09 DC 07/03 PO 07/03 0901 0900 Potassium Chloride 20 MEQ ONCE ONE 07/03 0730 CAN PO 07/03 0731 Rivaroxaban 15 MG DAILY 06/30 161 AC 07/03 PO 0843 Vancomycin HCl 1,000 MG 2100 07/01 2100 DC 07/02 Sodium Chloride 250 ML IV 2133 Impression/Plan Impression/Problem List Impression: 87 year old female with a PMH of COPD, 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 Patient was transferred overnight to ICU in the setting of worsening breathing possibly due to pulmonary edema or congestive heart failure with acute hypoxic respiratory failure. Chest x-ray showed bilateral airspace opacities. Patient was given IV Lasix overnight. She remained on BiPAP and high flow oxygen 60%. Patient was pancultured and started on empiric antibiotics. Acute hypoxic respiratory failure: -Possibly due to acute on chronic heart failure, could be due to COPD exacerbation. Patient has bilateral opacities and infiltrates in the lung although she remained afebrile. -Continue high flow oxygen 60% and maintaining her saturation above 92% -Continue BiPAP when necessary -Continue Solu-Medrol 40 mg every 12 hourly -Continue Symbicort, Flonase, teaslon, Mucinex -vancomycin and ceftaz discontinued as recommended by Dr. Chou. Patient remained afibrile. -TRC nebulization as needed -Follow-up sputum culture. Not able to bring any sputum. -Follow-up ID consult Acute on chronic CHF: -Patient's last echocardiogram showed ejection fraction 6570 percent with mitral valve stenosis, aortic insufficiency, tricuspid regurgitation (mixed valvular disease) and severe pulmonary hypertension. -CT surgery recommendations. -Patient is being managed with decrease preload and afterload reduction. -Continue Lasix 60 mg twice a day -Continue losartan for afterload reduction -Daily weight -Daily input and output monitoring -Repeat potassium and magnesium as needed History of atrial fibrillation: -Continue Xarelto for anticoagulation -Continue diltiazem and metoprolol for rate control Leukocytosis: -Patient has WBC 27.2 today, possibly due to steroid use. -We will keep monitoring her wbc and for any signs of infection. -Antibiotics were discontinued. History of GERD: -Continue omeprazole DVT prophylaxis: Mechanical and patient is already on Xarelto CODE STATUS: Full code Problem List: 1. Acute respiratory failure with hypoxia 2. Leukocytosis Pain Ratin Pain Location: none Pain Plan: pain pathway Tomorrow's Labs & Rationales: cbc/icu bundle Plan DVT/Prophylaxis: mechanical, pharmacological
[2018-07-03 08:00] VITALS: BP 130/80
--- NOTE | 2018-07-03 11:11 | PN- Att Addend ---
Attending Addendum Attending Brief Note Patient still in the intensive care unit still on high flow oxygen still being diuresed. Weak but breathing a little better. Vital signs are stable no fever patient in isolation for MRSA. No other major changes from physical. Appreciate infectious diseases input regarding the lack of pneumonia. Appreciate cloth printer and gluten settling tender recommendations. Also will have thoracic surgeon consultation regarding the mitral valve issue Intake & Output 07/03 1600 07/03 0400 07/02 1600 07/02 0400 07/01 1600 07/01 0400 Intake Total 824 573 8699 120 850 50 Output Total 200 183 1568 350 1250 Balance -755 20 -1072 -230 -400 50 Intake, IV 250 288 0 Intake, Oral 120 180 790 120 850 50 Number 0 0 2 Bowel Movements Output, Urine 208 437 4129 350 1250 Patient 156 lb 156 lb 164 lb Weight Weight Bed scale Bed scale Measurement Method Current Medications Sig/Heena Start time Last Medication Dose Route Stop Time Status Admin Acetaminophen 650 MG Q6PRN PRN 06/30 1630 AC PO Albuterol Sulfate 3 ML BID 07/01 900 AC 07/03 INH 1027 Albuterol Sulfate 2 PUF Q4-6 PRN PRN 06/30 1615 AC INH Aspirin Buffered 81 MG DAILY 06/30 160 AC 07/03 PO 0842 Atorvastatin Calcium 20 MG QPM 06/30 2100 AC 07/02 PO 2128 Benzonatate 100 MG TID 07/01 0430 AC 07/03 PO 0843 Budesonide/ 2 PUF BID 06/30 2100 AC 07/03 Formoterol Fumarate INH 0855 Ceftazidime 1,000 MG Q12 07/01 2100 DC 07/03 IV 0839 Diltiazem HCl 120 MG DAILY 06/30 1608 AC 07/03 PO 0842 Fluticasone 2 SPRAY AT BEDTIME 06/30 2100 AC 07/02 Propionate MARCO 2134 Furosemide 60 MG BID 07/02 2100 AC 07/03 IV 0840 Furosemide 20 MG ONCE ONE 07/02 1200 DC 07/02 IV 07/02 1201 1245 Furosemide 60 MG ONCE ONE 07/02 1145 CAN IV 07/02 1146 Furosemide 40 MG DAILY 07/01 900 DC 07/02 IV 0907 Guaifenesin 1,200 MG Q12 06/30 2100 AC 07/03 PO 0842 Losartan Potassium 50 MG BID 06/30 2100 AC 07/03 PO 0842 Magnesium Oxide 400 MG DAILY 06/30 1610 AC 07/03 PO 0842 Methylprednisolone 40 MG Q12 07/01 0900 AC 07/03 IV 0839 Metoprolol Succinate 25 MG DAILY 06/30 161 AC 07/03 PO 0843 Omeprazole 20 MG DAILY AC 06/30 1608 AC 07/03 PO 0548 Potassium Chloride 20 MEQ ONCE ONE 07/03 900 DC PO 07/03 09 Potassium Chloride 20 MEQ ONCE ONE 07/03 0730 CAN PO 07/03 0731 Rivaroxaban 15 MG DAILY 06/30 161 AC 07/03 PO 0843 Vancomycin HCl 1,000 MG 07/01 DC 07/02 Sodium Chloride 250 ML IV 2133 Laboratory Tests 07/03/18 0355: Anion Gap 8, Estimated GFR > 60, Glucose 149 H, Calcium 9.0, Phosphorus 4.6 H, Magnesium 2.2, Total Bilirubin 1.0, AST 35, ALT 34, Albumin 3.5, CBC w Diff NO MAN DIFF REQ, RBC 3.72 L, MCV 74.5 L, MCH 24.9 L, MCHC 33.5, RDW 19.9 H, MPV 9.1, Gran % 95.4 H, Lymphocytes % 2.9 L, Monocytes % 1.7, Eosinophils % 0, Basophils % 0, Absolute Granulocytes 19.7 H, Absolute Lymphocytes 0.6 L, Absolute Monocytes 0.4, Absolute Eosinophils 0, Absolute Basophils 0 07/02/18 0840: Lactic Acid 2.8 H, Troponin I 0.01 07/02/18 0738: Lactic Acid Cancelled 07/02/18 0410: Anion Gap 9, Estimated GFR > 60, Glucose 155 H, Lactic Acid 2.6 H, Calcium 8.8 , Phosphorus 4.0, Magnesium 2.0, Total Bilirubin 0.6, AST 28, ALT 28, Albumin 3.4 L, CBC w Diff MAN DIFF ORDERED, RBC 3.76 L, MCV 74.1 L, MCH 24.8 L, MCHC 33.5, RDW 19.2 H, MPV 8.6, Gran % 94.3 H, Lymphocytes % 2.1 L, Monocytes % 3.5, Eosinophils % 0, Basophils % 0.1, Absolute Granulocytes 25.7 H, Segmented Neutrophils 99 H, Absolute Lymphocytes 0.6 L, Monocytes 1 L, Absolute Monocytes 0.9 H, Absolute Eosinophils 0, Absolute Basophils 0, Platelet Estimate ADEQUATE, Polychromasia 1+, Poikilocytosis 1+, Anisocytosis 1+, Microcytic Cells 1+, Ovalocytes 1+, Fld Total RBCs Counted 100 07/02/18 0032: Lactic Acid 2.3 H 07/02/18 0032: Anion Gap 8, Estimated GFR > 60, BUN/Creatinine Ratio 47.1 H, Magnesium 2.2, Troponin I 0.02 07/01/182104: Lactic Acid 3.3 H 07/01/182019: pH 7.50 H, pCO2 28 L, pO2 72 L, HCO3 22, ABG O2 Sat (Measured) 94.0 L, P-50 (Temp Corrected) N, Carboxyhemoglobin 0.3 L, O2 Concentration % 60, Temperature 97.0, O2 Delivery Method HFNC, Phlebotomy Draw Site LEFT RADIAL 07/01/182000: D-Dimer High Sensitivty 322 H 07/01/18 1915: Anion Gap 14, Estimated GFR 52 L, BUN/Creatinine Ratio 28.0 H, Calcium 9.3, Phosphorus 3.7, Magnesium 2.2, Total Bilirubin 0.5, Direct Bilirubin 0.2, AST 28 , ALT 25, Alkaline Phosphatase 79, Troponin I < 0.01, Total Protein 6.7, Albumin 4.0, CBC w Diff NO MAN DIFF REQ, RBC 4.13 L, MCV 73.9 L, MCH 24.8 L, MCHC 33.5, RDW 19.0 H, MPV 8.7, Gran % 94.1 H, Lymphocytes % 2.5 L, Monocytes % 3.4, Eosinophils % 0, Basophils % 0, Absolute Granulocytes 21.2 H, Absolute Lymphocytes 0.6 L, Absolute Monocytes 0.8 H, Absolute Eosinophils 0, Absolute Basophils 0 07/01/18 0640: Anion Gap 7, Estimated GFR > 60, BUN/Creatinine Ratio 25.7 H, CBC w Diff MAN DIFF ORDERED, RBC 3.79 L, MCV 73.1 L, MCH 24.6 L, MCHC 33.7, RDW 18.5 H, MPV 9.2, Gran % 87.9 H, Lymphocytes % 8.2 L, Monocytes % 3.9, Eosinophils % 0, Basophils % 0, Absolute Granulocytes 6.8 H, Absolute Lymphocytes 0.6 L, Absolute Monocytes 0.3, Absolute Eosinophils 0, Absolute Basophils 0, Platelet Estimate VERIFIED BY SMEAR, Polychromasia 1+, Hypochromic-Microcytic 1+, Poikilocytosis 1+, Anisocytosis 1+, Microcytic Cells 1+, Ovalocytes 1+, Navid Cells 1+ Microbiology 07/02 1150 LOWER RESP: Respiratory Culture - COLB 07/02 115 LOWER RESP: Gram Stain - COLB 07/01 221 BLOOD: Blood Culture - RES 07/01 2207 BLOOD: Blood Culture - RES 07/01 211 URINE ROUT: Urine Culture - COMP 07/01 194 UPPER RESP: Surveillance Culture - COMP METH RESIST STAPH AUREUS 07/01 1929 GI: Surveillance Culture - CAN Cancelled: NO SAMPLE COLLECTED 07/01 134 URINE ROUT: Legionella Antigen - COMP 07/01 134 URINE ROUT: Streptococcus pneumoniae Antigen (M - COMP 07/01 1014 LOWER RESP: Respiratory Culture - CAN Cancelled: NO SPUTUM COLLECTED 07/01 101 LOWER RESP: Gram Stain - CAN Cancelled: NO SPUTUM COLLECTED Microbiology 07/02 1150 LOWER RESP: Respiratory Culture - COLB 07/02 1150 LOWER RESP: Gram Stain - COLB 07/01 221 BLOOD: Blood Culture - RES 07/01 2207 BLOOD: Blood Culture - RES 07/01 2110 URINE ROUT: Urine Culture - COMP 07/01 1945 UPPER RESP: Surveillance Culture - COMP METH RESIST STAPH AUREUS 07/01 1929 GI: Surveillance Culture - CAN Cancelled: NO SAMPLE COLLECTED 07/01 134 URINE ROUT: Legionella Antigen - COMP 07/01 134 URINE ROUT: Streptococcus pneumoniae Antigen (M - COMP 07/01 1014 LOWER RESP: Respiratory Culture - CAN Cancelled: NO SPUTUM COLLECTED 07/01 1014 LOWER RESP: Gram Stain - CAN Cancelled: NO SPUTUM COLLECTED Vital Signs Date Time Temp Pulse Resp B/P B/P Pulse O2 O2 Flow FiO2 Mean Ox Delivery Rate 07/03 1027 91 Nasal 75% Cannula 07/03 0551 81 96 07/03 0400 97 BIPAP 60% 07/03 0309 84 95 07/03 0049 82 96 07/03 0000 97 BIPAP 60% 07/02 2300 97.7 84 22 132/70 97 BIPAP 60% 07/02 2154 99 91 07/02 2124 104 30 195/90 07/02 1850 92 Nasal 70% Cannula 07/02 1807 97 BIPAP 60% 07/02 1759 98.1 90 20 130/80 93 07/02 1729 12 95 07/02 1600 84 Nasal 60% Cannula 07/02 1421 92 Nasal 60% Cannula 07/02 1200 91 Nasal 60% Cannula
--- NOTE | 2018-07-03 11:35 | Cons- Infect Disease ---
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 On admission she was afebrile, with an O2 sat of 97% on room air. Laboratory data revealed a white blood cell count of 10,000, BUN/creatinine 11 and 0.7, with normal liver enzymes, proBNP 2410. Chest x-ray revealed diffuse bilateral airspace opacities. She was begun on Solumedrol and IV Lasix. On July 01 she developed increasing respiratory distress, prompting transfer to the ICU, placement on BiPAP and empiric treatment with Vancomycin and Ceftazidime. She has remained afebrile (on steroids) since admission. Her white blood cell count did increase to 23,000 on July 01 and has remained elevated. She has diuresed to some extent and feels improved today, on high flow oxygen. She has had several episodes of hemoptysis but denies any chest pain. Allergies/Medications Allergies: Coded Allergies: adhesive tape (RASH ON SKIN THAT IT TOUCHES 10/22/17) iodine (DAVIS SKIN WHERE APPLIED 10/22/17) povidone-iodine (DAVIS SKIN WHERE IT IS APPLIED 10/22/17) shellfish derived (HIVES ALL OVER 10/22/17) propoxyphene (GI UPSET 10/22/17) Home Med List: Albuterol Sulfate 2.5 MG/3 ML (0.083 %) VIAL.NEB 1 Vial INH/JULIO BID COPD ( Reported) Albuterol Sulfate (Ventolin Hfa) 90 MCG HFA.AER.AD 2 PUF INH Q4-6 PRN PRN SHORTNESS OF BREATH Aspirin (Ecotrin*) 81 MG TABLET.DR 1 TAB PO DAILY HEART (Reported) Atorvastatin Calcium (Lipitor) 20 MG TABLET 1 TAB PO QPM CHOLESTEROL ( Reported) Budesonide/Formoterol Fumarate (Symbicort 160-4.5 Mcg Inhaler) 160 MCG-4.5 MCG/ ACTUATION HFA.AER.AD 2 PUF INH BID COPD (Reported) Cholecalciferol (Vitamin D3) (Vitamin D3) 1,000 UNIT CAPSULE 1 CAP PO DAILY HEALTH SUPPLEMENT (Reported) Diltiazem HCl (Diltiazem 24HR Cd) 120 MG CAP.ER.24H 1 CAP PO DAILY HEART/BP ( Reported) Esomeprazole Magnesium (Nexium) 20 MG CAPSULE.DR 1 CAP PO DAILY ACID REFLUX ( Reported) Fluticasone Propionate 50 MCG/ACTUATION SPRAY.SUSP 2 SPRAY [place]B DAILY ALLERGIES (Reported) Furosemide 40 MG TABLET 1 TAB PO BID DIURETIC (Reported) Guaifenesin (Mucinex) 1,200 MG TAB.ER.12H 1 TAB PO BID ALLERGIES (Reported) Losartan Potassium 100 MG TABLET 0.5 TAB PO BID BP (Reported) Magnesium Oxide 400 MG TABLET 1 TAB PO DAILY SUPPLEMENT (Reported) Metoprolol Succinate 25 MG TAB 1 TAB PO DAILY BP (Reported) [place]-3 Acid Ethyl Esters (Lovaza) 1 GRAM CAPSULE 1 CAP PO BID CHOLESTEROL/ TRIGLYCERIDES (Reported) Potassium Chloride 20 MEQ TAB.ER.PRT 1 TAB PO DAILY SUPPLEMENT (Reported) Rivaroxaban (Xarelto) 15 MG TABLET 1 TAB PO DAILY afib . Past History Travel History Traveled to [place] past 21 day No Medical History Neurological: NONE EENT: allergies, cataracts, epistaxis Cardiovascular: AFIB, CHF, hypertension Respiratory: COPD, pneumonia, radiation pneumonitis non-small cell lung cancer s /p lobectomy 2006 2007, s/p radiation 2013, c/b radiation pneumonitis Gastrointestinal: GERD, carcinoid syndrome, s/p resection Renal: NONE Musculoskeletal: osteoarthritis Psychiatric: insomnia Endocrine: NONE Blood Disorders: NONE Cancer(s): lung cancer S[employer]IOR [employer]/Reproductive: NONE History of MRSA: No History of VRE: No History of CDIFF: No Isolation History: Standard Influenza Vaccine: 07/25/17 Tetanus Vaccine: 08/06/17 Surgical History Surgical History: appendectomy, cholecystectomy, hip replacement, hysterectomy, status post bilateral lower lobectomies Family History Relations & Conditions If Any: BROTHER FH: heart attack DAUGHTER FH: breast cancer Relation not specified for: FH: throat cancer Psychosocial History Who Do You Live With? spouse Services at Home: None Primary Language: Setswana Smoking Status: Never Smoked ETOH Use: denies use Illicit Drug Use: denies illicit drug use Living Will? yes Functional Ability ADLs Independent: dressing, eating, toileting, bathing. Ambulation: independent IADLs Independent: shopping, housework, finances, food prep, telephone, transportation , medication admin. Review of Systems Review of Systems All Other Systems: Reviewed and Negative Exam & Diagnostic Data Last 24 Hrs of Vital Signs/I&O Vital Signs Date Time Temp Pulse Resp B/P B/P Pulse O2 O2 Flow FiO2 Mean Ox Delivery Rate 07/03 1027 91 Nasal 75% Cannula 07/03 0551 81 96 07/03 0400 97 BIPAP 60% 07/03 0309 84 95 07/03 0049 82 96 07/03 0000 97 BIPAP 60% 07/02 2300 97.7 84 22 132/70 97 BIPAP 60% 07/02 2154 99 91 07/02 2124 104 30 195/90 07/02 1850 92 Nasal 70% Cannula 07/02 1807 97 BIPAP 60% 07/02 1759 98.1 90 20 130/80 93 07/02 1729 12 95 07/02 1600 84 Nasal 60% Cannula 07/02 1421 92 Nasal 60% Cannula 07/02 1200 91 Nasal 60% Cannula Intake & Output 07/03 1600 07/03 0800 08 0000 Intake Total 120 430 Output Total 875 410 Balance -755 20 Intake, IV 250 Intake, Oral 120 180 Output, Urine 875 410 Patient 156 lb Weight Physical Exam Other Physical Findings: She is awake and alert in no acute distress, on high flow oxygen. She is afebrile on steroids. Skin reveals no rash. HEENT exam is negative. Neck is supple with no adenopathy. Lungs crackles at the right base. Heart irregular rhythm with a 2/6 systolic murmur. Abdomen is soft, nontender with positive bowel sounds. Back no CVA tenderness. Extremities no cyanosis, clubbing or edema. Neuro is without focality. Joseph catheter is in place. Last 24 Hours of Lab Results: Laboratory Tests 07/03 0355 Chemistry Sodium (137 - 145 mmol/L) 137 Potassium (3.5 - 5.1 mmol/L) 3.8 Chloride (98 - 107 mmol/L) 103 Carbon Dioxide (22 - 30 mmol/L) 26 Anion Gap (5 - 16) 8 BUN (7 - 17 mg/dL) 35 H Creatinine (0.5 - 1.0 mg/dL) 0.7 Estimated GFR (>60 ml/min) > 60 Glucose (65 - 99 mg/dL) 149 H Calcium (8.4 - 10.2 mg/dL) 9.0 Phosphorus (2.5 - 4.5 mg/dL) 4.6 H Magnesium (1.6 - 2.3 mg/dL) 2.2 Total Bilirubin (0.2 - 1.3 mg/dL) 1.0 AST (14 - 36 U/L) 35 ALT (9 - 52 U/L) 34 Albumin (3.5 - 5.0 g/dL) 3.5 Hematology CBC w Diff NO MAN DIFF REQ WBC (4.8 - 10.8 /CUMM) 20.7 H RBC (4.20 - 5.40 /CUMM) 3.72 L Hgb (12.0 - 16.0 G/DL) 9.3 L Hct (37 - 47 %) 27.8 L MCV (81.0 - 99.0 FL) 74.5 L MCH (27.0 - 31.0 PG) 24.9 L MCHC (33.0 - 37.0 G/DL) 33.5 RDW (11.5 - 14.5 %) 19.9 H Plt Count (130 - 400 /CUMM) 313 MPV (7.4 - 10.4 FL) 9.1 Gran % (42.2 - 75.2 %) 95.4 H Lymphocytes % (20.5 - 51.1 %) 2.9 L Monocytes % (1.7 - 9.3 %) 1.7 Eosinophils % (0 - 5 %) 0 Basophils % (0.0 - 2.0 %) 0 Absolute Granulocytes (1.4 - 6.5 /CUMM) 19.7 H Absolute Lymphocytes (1.2 - 3.4 /CUMM) 0.6 L Absolute Monocytes (0.10 - 0.60 /CUMM) 0.4 Absolute Eosinophils (0.0 - 0.7 /CUMM) 0 Absolute Basophils (0.0 - 0.2 /CUMM) 0 Last 24 Hours of Jem Results: Urine strep pneumo antigen and Legionella antigen July 01 negative Urine culture July 01 negative Blood cultures 2 July 01 negative Diagnostic Data Recent Imaging Findings: Chest x-ray June 30 reveals diffuse bilateral airspace opacities CT of the chest July 01 reveals bilateral airspace disease and bilateral pleural effusions with left atrial dilatation consistent with pulmonary edema; focal consolidation left lower lobe, extending to the major fissure, improved from the previous study Chest x-ray July 02 diffuse patchy opacities throughout both lungs Assessment/Plan Assessment/Plan Impression: This is an 87-year-old woman with a history of diastolic dysfunction and COPD admitted on June 30 with several days of increasing shortness of breath and anorexia, with no change in her cough, chest pain, fevers or chills, found to be afebrile with a normal white blood cell count and a chest x-ray revealing diffuse bilateral airspace opacities, treated for CHF and COPD, with worsening hypoxia, requiring transfer to the ICU and empiric treatment with antibiotics. Her clinical picture is most suggestive of congestive heart failure. She has little evidence for infection, with no history of cough, fevers or chills prior to admission and with her temperatures and white blood cell count normal on admission. There was felt to be an element of bronchospasm, suggesting a possible exacerbation of COPD, though her chest x-ray is suggestive of CHF. Her leukocytosis is most likely secondary to steroids. Suggestion: 1. Further management of her CHF per Cardiology 2. Taper steroids per Pulmonary 3. Remove Joseph catheter once her I's and O's are stable and when okay with Cardiology 4. Discontinue Vancomycin and Ceftazidime and follow off antibiotics Consult Acknowledgment - Thank you for your consult request.
--- NOTE | 2018-07-03 15:31 | PN- CRCU ---
Subjective HPI/Critical Care Issues: The patient is awake and alert. She reports feeling improved overall with less shortness of breath. She has some blood-tinged sputum when she coughs. Her respiratory status has not improved, noting she is on 75% oxygen. She does not have a significant negative fluid balance however her urine output is adequate. The patient remains afebrile. Objective Current Medications: Current Medications Sig/Heena Start time Last Medication Dose Route Stop Time Status Admin Acetaminophen 650 MG Q6PRN PRN 06/30 1630 AC PO Albuterol Sulfate 3 ML BID 07/01 09 AC 07/02 INH 2059 Albuterol Sulfate 2 PUF Q4-6 PRN PRN 06/30 1615 AC INH Aspirin Buffered 81 MG DAILY 06/30 1607 AC 07/03 PO 0842 Atorvastatin Calcium 20 MG QPM 06/30 2100 AC 07/02 PO 2128 Benzonatate 100 MG TID 07/01 0430 AC 07/03 PO 0843 Budesonide/ 2 PUF BID 06/30 2100 AC 07/03 Formoterol Fumarate INH 0855 Ceftazidime 1,000 MG Q12 07/01 2100 AC 07/03 IV 0839 Diltiazem HCl 120 MG DAILY 06/30 1608 AC 07/03 PO 0842 Fluticasone 2 SPRAY AT BEDTIME 06/30 2100 AC 07/02 Propionate MARCO 2134 Furosemide 60 MG BID 07/02 2100 AC 07/03 IV 0840 Furosemide 20 MG ONCE ONE 07/02 1200 DC 07/02 IV 07/02 1201 1245 Furosemide 60 MG ONCE ONE 07/02 1145 CAN IV 07/02 1146 Furosemide 40 MG DAILY 07/01 900 DC 07/02 IV 0907 Guaifenesin 1,200 MG Q12 06/30 2100 AC 07/03 PO 0842 Losartan Potassium 50 MG BID 06/30 2100 AC 07/03 PO 0842 Magnesium Oxide 400 MG DAILY 06/30 1610 AC 07/03 PO 0842 Methylprednisolone 40 MG Q12 07/01 900 AC 08 IV 0839 Metoprolol Succinate 25 MG DAILY 06/30 1610 AC 07/03 PO 0843 Omeprazole 20 MG DAILY AC 06/30 1608 AC 07/03 PO 0548 Potassium Chloride 20 MEQ ONCE ONE 07/03 900 DC PO 07/03 09 Potassium Chloride 20 MEQ ONCE ONE 07/03 0730 CAN PO 07/03 0731 Rivaroxaban 15 MG DAILY 06/30 1610 AC 07/03 PO 0843 Vancomycin HCl 1,000 MG 2100 07/01 2100 AC 07/02 Sodium Chloride 250 ML IV 2133 Vital Signs & I&O Last 24 Hrs of Vitals and I&O: Vital Signs Date Time Temp Pulse Resp B/P B/P Pulse O2 O2 Flow FiO2 Mean Ox Delivery Rate 07/03 0551 81 96 07/03 0400 97 BIPAP 60% 07/03 0309 84 95 07/03 0049 82 96 07/03 0000 97 BIPAP 60% 07/02 2300 97.7 84 22 132/70 97 BIPAP 60% 07/02 2154 99 91 07/02 2124 104 30 195/90 07/02 1850 92 Nasal 70% Cannula 07/02 1807 97 BIPAP 60% 07/02 1759 98.1 90 20 130/80 93 07/02 1729 12 95 07/02 1600 84 Nasal 60% Cannula 07/02 1421 92 Nasal 60% Cannula 07/02 1200 91 Nasal 60% Cannula Intake & Output 07/03 1600 07/03 0800 07/03 0000 Intake Total 120 430 Output Total 875 410 Balance -755 20 Intake, IV 250 Intake, Oral 120 180 Output, Urine 875 410 Patient 156 lb Weight Physical Exam General Appearance: well developed/nourished, no apparent distress, alert, awake , comfortable Head: atraumatic Eyes: Bilateral: PERRL. Neck: supple Respiratory: Minimal wheezing, decreased breath sounds at lung bases, diffuse crackles Cardiovascular: systolic murmur, irregularly irregular Gastrointestinal: normal bowel sounds, soft, non-tender Extremities: bilateral lower extremity edema Skin: intact, normal color, warm/dry Results Last 24 Hrs of Lab Results: Laboratory Tests 07/03/18 0355: Anion Gap 8, Estimated GFR > 60, Glucose 149 H, Calcium 9.0, Phosphorus 4.6 H, Magnesium 2.2, Total Bilirubin 1.0, AST 35, ALT 34, Albumin 3.5, CBC w Diff NO MAN DIFF REQ, RBC 3.72 L, MCV 74.5 L, MCH 24.9 L, MCHC 33.5, RDW 19.9 H, MPV 9.1, Gran % 95.4 H, Lymphocytes % 2.9 L, Monocytes % 1.7, Eosinophils % 0, Basophils % 0, Absolute Granulocytes 19.7 H, Absolute Lymphocytes 0.6 L, Absolute Monocytes 0.4, Absolute Eosinophils 0, Absolute Basophils 0 Diagnostic Data CXR Findings: Stable bilateral airspace disease. Impression/Plan Impression/Plan Impression/Plan: 1. Decompensated CHF in the setting of valvular heart disease (mitral stenosis) , now with worsening acute hypoxemic respiratory failure secondary to pulmonary edema. 2. History of COPD with recurrent bronchospasm. 3. 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 4. Atrial fibrillation, on Xarelto, metoprolol and diltiazem. 5. Multifocal infiltrates and bilateral pleural effusions. 6. Leukocytosis likely secondary to steroids, underlying infectious process cannot be excluded. CT chest shows left lower lobe consolidation noting a superimposed infectious process cannot be excluded. Recommendations: * Continue high flow oxygen to maintain saturations greater than 92%. * Continue BiPAP if the patient's work of breathing increases. * No need for routine ABGs unless the patient's respiratory status changes. * Monitor strict I's and O's. Continue IV Lasix, negative fluid balance.. * Continue nebs/total respiratory care. * Continue Solu-Medrol 40 mg IV every 12 hours. Will taper slowly. * Monitor off antibiotics as per ID. * Continue Symbicort, Flonase, Tessalon and Mucinex. * DVT prophylaxis at all times -on Xarelto. * Continue all supportive care.
[2018-07-03 16:00] VITALS: BP 160/66
--- NOTE | 2018-07-03 17:10 | Cons- Thoracic Surgery ---
General Information and HPI Consulting Request Date of Consult: 07/03/18 Requested By: Antonio Lopez MD Reason for Consult: Evaluate valvular heart disease for possible mitral valve replacement surgery Source of Information: patient, family, old records, PCP Exam Limitations: no limitations History of Present Illness: Patient is an 87-year-old woman with a history of significant severe COPD pulmonary hypertension and multi valvular heart disease who was admitted with worsening dyspnea. Patient has been followed with known mitral stenosis aortic insufficiency and severe tricuspid regurgitation along with pulmonary hypertension by Dr. Darian Jones. Her most recent echocardiogram was done in January showing moderate mitral stenosis with preserved left ventricular function. Patient was admitted now with significant exertion and significant worsening exertional dyspnea and wheezing. She has productive cough with clear sputum. Cardiac surgical evaluation is asked for assessment of her fitness for any possible valvular heart surgery in the context of her exacerbation of what is felt to be congestive heart failure. Allergies/Medications Allergies: Coded Allergies: adhesive tape (RASH ON SKIN THAT IT TOUCHES 10/22/17) iodine (DAVIS SKIN WHERE APPLIED 10/22/17) povidone-iodine (DAVIS SKIN WHERE IT IS APPLIED 10/22/17) shellfish derived (HIVES ALL OVER 10/22/17) propoxyphene (GI UPSET 10/22/17) Home Med List: Albuterol Sulfate 2.5 MG/3 ML (0.083 %) VIAL.NEB 1 Vial INH/JULIO BID COPD ( Reported) Albuterol Sulfate (Ventolin Hfa) 90 MCG HFA.AER.AD 2 PUF INH Q4-6 PRN PRN SHORTNESS OF BREATH Aspirin (Ecotrin*) 81 MG TABLET.DR 1 TAB PO DAILY HEART (Reported) Atorvastatin Calcium (Lipitor) 20 MG TABLET 1 TAB PO QPM CHOLESTEROL ( Reported) Budesonide/Formoterol Fumarate (Symbicort 160-4.5 Mcg Inhaler) 160 MCG-4.5 MCG/ ACTUATION HFA.AER.AD 2 PUF INH BID COPD (Reported) Cholecalciferol (Vitamin D3) (Vitamin D3) 1,000 UNIT CAPSULE 1 CAP PO DAILY HEALTH SUPPLEMENT (Reported) Diltiazem HCl (Diltiazem 24HR Cd) 120 MG CAP.ER.24H 1 CAP PO DAILY HEART/BP ( Reported) Esomeprazole Magnesium (Nexium) 20 MG CAPSULE.DR 1 CAP PO DAILY ACID REFLUX ( Reported) Fluticasone Propionate 50 MCG/ACTUATION SPRAY.SUSP 2 SPRAY NASB DAILY ALLERGIES (Reported) Furosemide 40 MG TABLET 1 TAB PO BID DIURETIC (Reported) Guaifenesin (Mucinex) 1,200 MG TAB.ER.12H 1 TAB PO BID ALLERGIES (Reported) Losartan Potassium 100 MG TABLET 0.5 TAB PO BID BP (Reported) Magnesium Oxide 400 MG TABLET 1 TAB PO DAILY SUPPLEMENT (Reported) Metoprolol Succinate 25 MG TAB 1 TAB PO DAILY BP (Reported) [place]-3 Acid Ethyl Esters (Lovaza) 1 GRAM CAPSULE 1 CAP PO BID CHOLESTEROL/ TRIGLYCERIDES (Reported) Potassium Chloride 20 MEQ TAB.ER.PRT 1 TAB PO DAILY SUPPLEMENT (Reported) Rivaroxaban (Xarelto) 15 MG TABLET 1 TAB PO DAILY afib . Current Medications: Current Medications Sig/Heena Start time Last Medication Dose Route Stop Time Status Admin Acetaminophen 650 MG Q6PRN PRN 06/30 1630 AC PO Albuterol Sulfate 3 ML BID 07/01 900 AC 07/03 INH 1027 Albuterol Sulfate 2 PUF Q4-6 PRN PRN 06/30 1615 AC INH Aspirin Buffered 81 MG DAILY 06/30 1607 AC 07/03 PO 0842 Atorvastatin Calcium 20 MG QPM 06/30 2100 AC 07/02 PO 2128 Benzonatate 100 MG TID 07/01 0430 AC 07/03 PO 1452 Budesonide/ 2 PUF BID 06/30 2100 AC 07/03 Formoterol Fumarate INH 0855 Ceftazidime 1,000 MG Q12 07/01 2100 DC 08 IV 0839 Diltiazem HCl 120 MG DAILY 06/30 1608 AC 07/03 PO 0842 Fluticasone 2 SPRAY AT BEDTIME 06/30 2100 AC 07/02 Propionate MARCO 2134 Furosemide 60 MG BID 07/02 2100 AC 07/03 IV 0840 Guaifenesin 1,200 MG Q12 06/30 2100 AC 07/03 PO 0842 Losartan Potassium 50 MG BID 06/30 2100 AC 07/03 PO 0842 Magnesium Oxide 400 MG DAILY 06/30 1610 AC 08 PO 0842 Methylprednisolone 40 MG Q12 07/01 0900 AC 08 IV 0839 Metoprolol Succinate 25 MG DAILY 06/30 1610 AC 08 PO 0843 Omeprazole 20 MG DAILY AC 06/30 1608 AC 07/03 PO 0548 Potassium Chloride 20 MEQ ONCE ONE 08/10 0900 DC PO 07/03 0901 Potassium Chloride 20 MEQ ONCE ONE 07/03 0730 CAN PO 07/03 0731 Rivaroxaban 15 MG DAILY 06/30 1610 AC 07/03 PO 0843 Vancomycin HCl 1,000 MG 2100 07/01 2100 DC 07/02 Sodium Chloride 250 ML IV 2133 Past History Medical History Neurological: NONE EENT: allergies, cataracts, epistaxis Cardiovascular: AFIB, CHF, hypertension Respiratory: COPD, pneumonia, radiation pneumonitis non-small cell lung cancer s /p lobectomy 2006 2007, s/p radiation 2013, c/b radiation pneumonitis Gastrointestinal: GERD, carcinoid syndrome, s/p resection Renal: NONE Musculoskeletal: osteoarthritis Psychiatric: insomnia Endocrine: NONE Blood Disorders: NONE Cancer(s): lung cancer ORTHOTICS ASSISTANT/Reproductive: NONE Surgical History Pertinent Surgical History: appendectomy, cholecystectomy, hip replacement, hysterectomy, status post bilateral lower lobectomies Family History Relations & Conditions If Any: BROTHER FH: heart attack DAUGHTER FH: breast cancer Relation not specified for: FH: throat cancer Psychosocial History Who Do You Live With? spouse Services at Home: None Primary Language: Upper Sorbian Smoking Status: Never Smoked ETOH Use: denies use Illicit Drug Use: denies illicit drug use Living Will? yes Functional Ability ADLs Independent: dressing, eating, toileting, bathing. Ambulation: independent IADLs Independent: shopping, housework, finances, food prep, telephone, transportation , medication admin. Review of Systems Review of Systems: Review of systems notable for the respiratory symptoms as above. Since admission she had a worsening requiring transfer to the intensive care unit and now with aggressive diuresis she is improving. Of note is that prior to admission she was carrying out her daily activities with little to no limitations attested to by the patient and her family members. She has had a decreased appetite and oral intake with this exacerbation. She has had no fevers or chills. She has had no anginal type chest pain. The rest of her 12 point review of systems is unremarkable. Her history is notable for significant COPD and she has had bilateral pulmonary surgeries for lung cancer and carcinoma along with a radiation treatment of a third parenchymal lung neoplasm. Exam & Diagnostic Data Vital Signs and I&O Vital Signs Date Time Temp Pulse Resp B/P B/P Pulse O2 O2 Flow FiO2 Mean Ox Delivery Rate 07/03 1600 94 Nasal 75% Cannula 07/03 1600 97.1 97 18 160/66 94 Nasal 75% Cannula 07/03 1027 91 Nasal 75% Cannula 07/03 0800 95 Nasal 75% Cannula 07/03 08 97.0 84 22 130/80 95 Nasal 75% Cannula 07/03 0551 81 96 07/03 0400 97 BIPAP 60% 07/03 0309 84 95 / 0049 82 96 07/03 0000 97 BIPAP 60% 07/02 2300 97.7 84 22 132/70 97 BIPAP 60% 07/02 2154 99 91 / 2124 104 30 195/90 08 1850 92 Nasal 70% Cannula 07/02 1807 97 BIPAP 60% 07/02 1759 98.1 90 20 130/80 93 07/02 1729 12 95 Intake & Output 07/03 1600 07/03 0800 08/ 0000 08/ 1600 07/02 0800 08/ 0000 Intake Total 480 120 430 458 620 120 Output Total 850 042 201 3397 1050 350 Balance -370 -755 20 -642 -430 -230 Intake, IV 40 250 38 250 0 Intake, Oral 440 120 180 420 370 120 Number 1 0 0 0 Bowel Movements Output, Urine 850 910 604 1113 1050 350 Patient 156 lb 156 lb Weight Weight Bed scale Measurement Method Physical Exam: On physical examination she is sitting up in bed comfortable and is able to carry on a conversation with no difficulty. Her skin is warm and well perfused no suspicious lesions noted. The sclerae anicteric and mucous membranes are moist. There is no cervical or supraclavicular lymphadenopathy. Her breath sounds or breath sounds are somewhat coarse bilaterally with slight wheezes noted. The cardiac exam shows an irregular rhythm and rate with a systolic ejection murmur heard throughout the precordium. The abdomen is soft and nontender with no masses. The periphery shows 2+ bilateral lower extremity edema and no cyanosis. Her neurologic exam is grossly normal motor and sensory function. Last 24 Hours of Labs: Laboratory Tests 07/03 035 Chemistry Sodium (137 - 145 mmol/L) 137 Potassium (3.5 - 5.1 mmol/L) 3.8 Chloride (98 - 107 mmol/L) 103 Carbon Dioxide (22 - 30 mmol/L) 26 Anion Gap (5 - 16) 8 BUN (7 - 17 mg/dL) 35 H Creatinine (0.5 - 1.0 mg/dL) 0.7 Estimated GFR (>60 ml/min) > 60 Glucose (65 - 99 mg/dL) 149 H Calcium (8.4 - 10.2 mg/dL) 9.0 Phosphorus (2.5 - 4.5 mg/dL) 4.6 H Magnesium (1.6 - 2.3 mg/dL) 2.2 Total Bilirubin (0.2 - 1.3 mg/dL) 1.0 AST (14 - 36 U/L) 35 ALT (9 - 52 U/L) 34 Albumin (3.5 - 5.0 g/dL) 3.5 Hematology CBC w Diff NO MAN DIFF REQ WBC (4.8 - 10.8 /CUMM) 20.7 H RBC (4.20 - 5.40 /CUMM) 3.72 L Hgb (12.0 - 16.0 G/DL) 9.3 L Hct (37 - 47 %) 27.8 L MCV (81.0 - 99.0 FL) 74.5 L MCH (27.0 - 31.0 PG) 24.9 L MCHC (33.0 - 37.0 G/DL) 33.5 RDW (11.5 - 14.5 %) 19.9 H Plt Count (130 - 400 /CUMM) 313 MPV (7.4 - 10.4 FL) 9.1 Gran % (42.2 - 75.2 %) 95.4 H Lymphocytes % (20.5 - 51.1 %) 2.9 L Monocytes % (1.7 - 9.3 %) 1.7 Eosinophils % (0 - 5 %) 0 Basophils % (0.0 - 2.0 %) 0 Absolute Granulocytes (1.4 - 6.5 /CUMM) 19.7 H Absolute Lymphocytes (1.2 - 3.4 /CUMM) 0.6 L Absolute Monocytes (0.10 - 0.60 /CUMM) 0.4 Absolute Eosinophils (0.0 - 0.7 /CUMM) 0 Absolute Basophils (0.0 - 0.2 /CUMM) 0 Imaging Results: I reviewed her echocardiogram that was done today and compared to the echocardiogram from January. There remains what appears to be mild to moderate mitral stenosis with significant mitral annular calcification. There is moderate aortic insufficiency and there is severe tricuspid regurgitation. Pulmonary artery pressures are higher than they were previously and are now estimated at 90 mmHg. Other Results: I answered the patient's demographic data into the Society of thoracic surgeons surgical risk calculator for mitral valve replacement. The results are a 10% risk of mortality and a 40% risk of major morbidity or mortality. There is a risk of 29% of significant prolonged ventilation. Assessment/Plan Assessment/Plan 87-year-old with mixed valvular heart disease. She has moderate aortic insufficiency moderate mitral stenosis and severe tricuspid regurgitation. I do not think that any of the singular valvular disease qualifies for surgical intervention. The main concern is 1 of her pulmonary hypertension which I think is the result of her significant pulmonary disease along with her mixed valvular disease. When I spoke with the patient and told her about the STS risk calculator she said very definitively that she would not want to pursue any consideration of surgical treatment under any circumstances. I think this is a good decision for her given her general condition and I do not think that any valvular procedure would improve her quality of life and would carry with it prohibitive risk of morbidity and mortality. This obviously plays into any further decision if there is in fact progression of disease for right now I do not see any indication for surgical intervention on her mitral valve. Consult Acknowledgment - Thank you for your consult request.
--- NOTE | 2018-07-03 19:38 | PN- Cardiology ---
Subjective Subjective: * Patient continues to have some shortness of breath. * very high pulmonary pressures on echo Objective Vital Signs and I&Os Vital Signs Date Time Temp Pulse Resp B/P B/P Pulse O2 O2 Flow FiO2 Mean Ox Delivery Rate 07/03 1918 96 Nasal 75% Cannula 07/03 1600 94 Nasal 75% Cannula 07/03 1600 97.1 97 18 160/66 94 Nasal 75% Cannula 07/03 1027 91 Nasal 75% Cannula 07/03 0800 95 Nasal 75% Cannula 07/03 0800 97.0 84 22 130/80 95 Nasal 75% Cannula 07/03 0551 81 96 07/03 0400 97 BIPAP 60% 07/03 0309 84 95 07/03 0049 82 96 07/03 0000 97 BIPAP 60% 07/02 2300 97.7 84 22 132/70 97 BIPAP 60% 07/02 2154 99 91 07/02 2124 104 30 195/90 Intake & Output 07/03 1600 07/03 0800 08/ 0000 07/02 1600 07/02 0800 08 0000 Intake Total 480 120 430 458 620 120 Output Total 850 852 708 5039 1050 350 Balance -370 -755 20 -642 -430 -230 Intake, IV 40 250 38 250 0 Intake, Oral 440 120 180 420 370 120 Number 1 0 0 0 Bowel Movements Output, Urine 850 877 637 0963 1050 350 Patient 156 lb 156 lb Weight Weight Bed scale Measurement Method Physical Exam: General: WD/WN female in NAD; alert and oriented x 3 HEENT: NC/AT, PERRL, EOMI Neck: no JVD, no carotid bruit Heart: irregular with 3/6 systolic murmur at the apex, 3/6 systolic murmur at the LLSB and 3/6 systolic murmur at the RUSB Lungs: decreased air movement with occasional wheezes noted bilaterally Extremities: no edema Assessment/Plan Assessment/Plan * This patient is being treated for a pneumonia although she is now going to be monitored off antibiotics. It should be noted that this patient has mitral stenosis and will be very intolerant of physiologic stress. As such, she has superimposed CHF which we will attempt to treat via diuresis and afterload reduction. She has a very fragile hemodynamic status however which I do not think will improve without valve repair. This patient was found to have very high pulmonary pressures which may be related to her mitral stenosis, in part, but also may be due to her lung disease. She is unlikely to come off a vent if surgery is pursued and is therefore not a candidate. Her echo mitral score is also high but consideration will be given to mitral balloon valvuloplasty if the patient is interested in this procedure. * Continue to diurese with Lasix at 60mg IV BID with careful monitoring of her BUN, creatinine and potassium. Continue afterload reduction with Losartan. Continue high flow oxygen and Bipap for increased respiratory rate with respiratory distress. * Continue Xarelto for stroke prophylaxis. Continue telemetry? Yes
--- NOTE | 2018-07-03 20:46 | ECHOCARDIOGRAM REPORT ---
THOMAS HDZ Age: 87 : 1930 Gender: F Exam Date: 07/03/2018 09:21 Exam Location: [facility] Ht (in): 62 Wt (lb): 163 BSA: 1.82 BP: 144 / 71 Ordering Physician: Julian Taylor MD Referring Physician: Julain Taylor MD Technologist: Nirmal Tabor [facility] [[email or web address]] Room Number: 106 Indications: Other chest pain Rhythm: Atrial fibrillation Technical Quality: good FINDINGS Left Ventricle Normal left ventricular size with mild to moderat left ventricular hypertrophy. Normal systolic function with no obvious regional wall motion abnormalities. The ejection fraction is visually estimated at 70 %. Right Ventricle The right ventricle is normal in size and function. Right Atrium The right atrium is normal in size. Left Atrium The left atrium is mildly enlrged. The interatrial septum is intact. Mitral Valve The mitral valve is thickened and severely sclerotic with decreased leaflet excursion. Moderate to severe stenosis is noted. There is trace mitral regurgitation. Aortic Valve Mildly thickened and sclerotic aortic valve with mild stenosis. There is moderate aortic regurgitation. Tricuspid Valve The tricuspid valve is normal in structure and function. There is moderate tricuspid regurgitation. Pulmonary artery systolic pressure is severely elevated to 92mmHg. Pulmonic Valve Structurally normal pulmonic valve. There is trace pulmonic regurgitation. Pericardium Normal pericardium without effusion. Small pleural effusion. Great Vessels Normal aortic root dimension. The aortic arch and great vessels are well seen and are normal. CONCLUSIONS 1. Normal EF of 70%. 2. Mild to moderate left ventricular hypertrophy. 3. Mild left atrial enlargement. 4. Moderate to severe mitral stenosis with trace regurgitation. 5. Moderate tricuspid regurgitation. 6. Mild aortic stenosis with moderate regurgitation. 7. Trace pulmonic regurgitation. 8. Severe pulmonary hypertension. Oliver Cano M.D. (Electronically Signed) Final Date: 03 July 2018 20:40 MEASUREMENTS (Male / Female) Normal Values 2D ECHO LV Diastolic Diameter PLAX 4.6 cm 4.2 - 5.9 / 3.9 - 5.3 cm LV Systolic Diameter PLAX 2.4 cm 2.1 - 4.0 cm LV Fractional Shortening PLAX 48.9 % 25 - 46 % LV Ejection Fraction 2D Teich 80.3 % IVS Diastolic Thickness 1.2 cm LVPW Diastolic Thickness 1.2 cm LV Relative Wall Thickness 0.5 RV Internal Dim ED PLAX 2.8 cm 1.9 - 3.8 cm LVOT Diameter 1.9 cm Aortic Root Diameter 2.6 cm LA Systolic Diameter LX 4.3 cm 3.0 - 4.0 / 2.7 - 3.8 cm Ascending Aorta Diameter 3.4 cm DOPPLER AV Peak Velocity 175.0 cm/s AV Peak Gradient 12.3 mmHg AV Mean Velocity 110.0 cm/s AV Mean Gradient 6.0 mmHg AV Velocity Time Integral 37.3 cm LVOT Peak Velocity 140.0 cm/s LVOT Peak Gradient 7.8 mmHg LVOT Mean Velocity 84.5 cm/s LVOT Mean Gradient 4.0 mmHg LVOT Velocity Time Integral 28.7 cm LVOT Stroke Volume 81.4 cm AV Area Cont Eq vti 2.2 cm AV Area Cont Eq pk 2.3 cm MV Peak Velocity 215.0 cm/s MV Peak Gradient 18.5 mmHg MV Mean Velocity 121.0 cm/s MV Mean Gradient 7.0 mmHg Mitral E Point Velocity 190.0 cm/s MV PHT Velocity 216.0 cm/s MV Deceleration [place] 730.0 cm/s MV Pressure Half Time 88.8 ms MV Area PHT 2.5 cm MV Deceleration Time 468.0 ms TR Peak Velocity 453.0 cm/s TR Peak Gradient 82.1 mmHg Right Atrial Pressure 10.0 mmHg Pulmonary Artery Systolic Pressure 92.1 mmHg Right Ventricular Systolic Pressure 92.1 mmHg PV Peak Velocity 116.0 cm/s PV Peak Gradient 5.4 mmHg PV Mean Velocity 71.9 cm/s PV Mean Gradient 3.0 mmHg PV Velocity Time Integral 21.4 cm
[2018-07-04] VITALS: BP 130/60
[2018-07-04 05:14] LABS: ABSOLUTE BASOPHIL COUNT 0 /CUMM (0.0-0.2); ABSOLUTE EOSINOPHIL COUNT 0 /CUMM (0.0-0.7); ABSOLUTE GRANULOCYTE CT 14.8 /CUMM (1.4-6.5); ABSOLUTE LYMPH COUNT 0.8 /CUMM (1.2-3.4); ABSOLUTE MONOCYTE COUNT 0.4 /CUMM (0.10-0.60); BASOPHIL % 0.2 % (0.0-2.0); EOSINOPHIL % 0 % (0-5); GRANULOCYTE % 92.5 % (42.2-75.2); HEMATOCRIT 27.4 % (37-47); MEAN CORPUSCULAR HGB 24.6 PG (27.0-31.0); MEAN CORPUSCULAR VOLUME 74.4 FL (81.0-99.0); PLATELET COUNT 318 /CUMM (130-400); RBC DISTRIBUTION WIDTH 19.2 % (11.5-14.5); RED BLOOD CELL CT 3.69 /CUMM (4.20-5.40)
[2018-07-04 07:00] VITALS: BP 148/68
--- NOTE | 2018-07-04 08:08 | PN- Resident CRCU ---
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 History of COPD with recurrent bronchospasm. 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 Atrial fibrillation, on Xarelto, metoprolol and diltiazem. Multifocal infiltrates and bilateral pleural effusions. Leukocytosis likely secondary to steroids, underlying infectious process cannot be excluded. CT chest shows left lower lobe consolidation noting a superimposed infectious process cannot be excluded. 24 Hour Events: No overnight events. Patient remained afebrile overnight. Seen and examined this morning. She used BiPAP last night. She is on high flow oxygen 60% and maintaining saturation 97%. Patient denied chest pain, nausea, vomiting, chills , fever, abdominal pain dysuria. Objective Vital Signs & I&O Last 8 Hrs of Vitals and I&O: Intake & Output 07/04 1600 07/04 0800 07/04 0000 Intake Total 960 350 640 Output Total 1150 1225 500 Balance -190 -875 140 Intake, IV 20 Intake, Oral 940 350 640 Output, Urine 1150 1225 500 Patient 160 lb Weight Laboratory Tests 07/04 0445 Chemistry Sodium (137 - 145 mmol/L) 135 L Potassium (3.5 - 5.1 mmol/L) 3.9 Chloride (98 - 107 mmol/L) 98 Carbon Dioxide (22 - 30 mmol/L) 28 Anion Gap (5 - 16) 8 BUN (7 - 17 mg/dL) 41 H Creatinine (0.5 - 1.0 mg/dL) 0.7 Estimated GFR (>60 ml/min) > 60 Glucose (65 - 99 mg/dL) 158 H Calcium (8.4 - 10.2 mg/dL) 8.9 Phosphorus (2.5 - 4.5 mg/dL) 4.8 H Magnesium (1.6 - 2.3 mg/dL) 2.3 Total Bilirubin (0.2 - 1.3 mg/dL) 1.3 AST (14 - 36 U/L) 33 ALT (9 - 52 U/L) 34 Albumin (3.5 - 5.0 g/dL) 3.6 Hematology CBC w Diff MAN DIFF ORDERED WBC (4.8 - 10.8 /CUMM) 16.0 H RBC (4.20 - 5.40 /CUMM) 3.69 L Hgb (12.0 - 16.0 G/DL) 9.1 L Hct (37 - 47 %) 27.4 L MCV (81.0 - 99.0 FL) 74.4 L MCH (27.0 - 31.0 PG) 24.6 L MCHC (33.0 - 37.0 G/DL) 33.0 RDW (11.5 - 14.5 %) 19.2 H Plt Count (130 - 400 /CUMM) 318 MPV (7.4 - 10.4 FL) 9.0 Gran % (42.2 - 75.2 %) 92.5 H Lymphocytes % (20.5 - 51.1 %) 5.0 L Monocytes % (1.7 - 9.3 %) 2.3 Eosinophils % (0 - 5 %) 0 Basophils % (0.0 - 2.0 %) 0.2 Absolute Granulocytes (1.4 - 6.5 /CUMM) 14.8 H Segmented Neutrophils (42.2 - 75.2 %) 92 H Band Neutrophils (0.0 - 5.0 %) 1 Absolute Lymphocytes (1.2 - 3.4 /CUMM) 0.8 L Lymphocytes (20.5 - 51.1 %) 3 L Monocytes (1.7 - 9.3 %) 4 Absolute Monocytes (0.10 - 0.60 /CUMM) 0.4 Absolute Eosinophils (0.0 - 0.7 /CUMM) 0 Absolute Basophils (0.0 - 0.2 /CUMM) 0 Platelet Estimate (ADEQUATE) ADEQUATE Polychromasia 1+ Hypochromic-Microcytic 1+ Intake & Output 07/04 1600 Intake Total 960 Output Total 1150 Balance -190 Intake, IV 20 Intake, Oral 940 Output, Urine 1150 Exam General Appearance: well developed/nourished, no apparent distress, alert, awake Head: atraumatic Neck: normal inspection, supple Respiratory: normal breath sounds Cardiovascular: irregularly irregular Gastrointestinal: normal bowel sounds, soft Extremities: no edema Skin Temp/Moisture Exam: Warm/Dry Sepsis Skin Exam (color): Normal for Ethnicity Current Medications: Current Medications Sig/Heena Start time Last Medication Dose Route Stop Time Status Admin Acetaminophen 650 MG Q6PRN PRN 06/30 1630 AC PO Albuterol Sulfate 3 ML BID 07/01 0900 AC 07/04 INH 0950 Albuterol Sulfate 2 PUF Q4-6 PRN PRN 06/30 1615 AC INH Aspirin Buffered 81 MG DAILY 06/30 1607 AC 07/04 PO 0850 Atorvastatin Calcium 20 MG QPM 06/30 2100 AC 07/03 PO 2100 Benzonatate 100 MG TID 07/01 0430 AC 07/04 PO 1436 Budesonide/ 2 PUF BID 06/30 2100 AC 07/04 Formoterol Fumarate INH 0909 Diltiazem HCl 120 MG DAILY 06/30 1608 AC 07/04 PO 0851 Fluticasone 2 SPRAY AT BEDTIME 06/30 2100 AC 07/03 Propionate MARCO 2120 Furosemide 60 MG BID 07/02 2100 AC 07/04 IV 0909 Guaifenesin 1,200 MG Q12 06/30 2100 AC 07/04 PO 0849 Losartan Potassium 50 MG BID 06/30 2100 AC 07/04 PO 0850 Magnesium Oxide 400 MG DAILY 06/30 1610 AC 07/04 PO 0850 Methylprednisolone 30 MG Q12 07/04 2100 AC IV Methylprednisolone 40 MG Q12 07/01 0900 DC 07/04 IV 0909 Metoprolol Succinate 25 MG DAILY 06/30 1610 AC 07/04 PO 0848 Omeprazole 20 MG DAILY AC 06/30 1608 AC 07/04 PO 0627 Rivaroxaban 15 MG DAILY 06/30 1610 AC 07/04 PO 0847 Impression/Plan Impression/Problem List Impression: 87 year old female with a PMH of COPD, 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 Patient was transferred overnight to ICU in the setting of worsening breathing possibly due to pulmonary edema or congestive heart failure with acute hypoxic respiratory failure. Chest x-ray showed bilateral airspace opacities. Patient was given IV Lasix overnight. She remained on BiPAP and high flow oxygen 60%. Patient was pancultured and started on empiric antibiotics. Acute hypoxic respiratory failure: -Possibly due to acute on chronic heart failure, could be due to COPD exacerbation. Patient has bilateral opacities and infiltrates in the lung although she remained afebrile. -Continue high flow oxygen 60% and maintaining her saturation above 92% -Continue BiPAP when necessary -Continue Solu-Medrol 30 mg every 12 hourly -Continue Symbicort, Flonase, teaslon, Mucinex -TRC nebulization as needed -Follow-up sputum culture. Not able to bring any sputum. -Follow-up ID consult Acute on chronic CHF: -Patient's last echocardiogram showed ejection fraction 6570 percent with mitral valve stenosis, aortic insufficiency, tricuspid regurgitation (mixed valvular disease) and severe pulmonary hypertension. -Not good candidate for valvular surgery as recommended by CT surgery and patient is aware of this. -Patient is being managed with decrease preload and afterload reduction. -Continue Lasix 60 mg twice a day -Continue losartan for afterload reduction -Daily weight -Daily input and output monitoring -Repeat potassium and magnesium as needed History of atrial fibrillation: -Continue Xarelto for anticoagulation -Continue diltiazem and metoprolol for rate control Leukocytosis: -Patient has WBC 16.0 today, possibly due to steroid use. -We will keep monitoring her wbc and for any signs of infection. -Keep off antibiotics. History of GERD: -Continue omeprazole DVT prophylaxis: Mechanical and patient is already on Xarelto CODE STATUS: Full code Problem List: 1. Acute respiratory failure with hypoxia 2. Leukocytosis 3. COPD (chronic obstructive pulmonary disease) 4. CHF (congestive heart failure) Pain Ratin Pain Location: none Pain Plan: pain pathway Tomorrow's Labs & Rationales: cbc/icu bundle Plan DVT/Prophylaxis: mechanical, pharmacological Terrell Valles MD 07/04/18 1035: Attending MD Review Statement Attending Sign Off Attending Cosign Statement: I have: examined this patient, reviewed avalbl EMR data, personally reviewd images, discussd w/resident/PA/[employer]CH[employer]ER, discussed mgmt plan w/phyllis, discussed mgmt plan w/CM, discussed mgmt plan w/pt, agreed w/resident/PA/[employer] MERCHANDISER, amended to note. Other Findings: Terrell Gray M.D. have examined this patient, reviewed available EMR data, personally reviewed images, discussed with resident/PA/[employer] MERCHANDISER, discussed management plan with housestaff and nursing staff, discussed managment plan all of healthcare providers, discussed management plan with patient and/or family, agreed with resident/PA/[employer] FI[employer] MERCHANDISER. The past history and parts of the chart have been autopopulated. 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, AI, severe TR) and pulmonary htn * hx of COPD with bronchospasm * a.fib on xarelto * hx of non-small cell lung ca and carcinoid - hx of b/l lower lobectomies, hx of radiation pneumonitis * improving leukocytosis Plan Respiratory -currently on high flow 60%, taper fio2 as necessary, monitor off bipap for now -repeat CXR 07/05 -TRC/Nebs, continue inhalers -reduce solumedrol to 30mg iv q12h ID -leukocytosis is presumed secondary to steroids, no signs of infection -ID consultation is appreciated and no antibiotics at this time CVS -cardiology/CT surgery consultations are reviewed and appreciated -ins/outs, diuresis -continue xarelto, cozaar, lipitor, toprol xl, asa, cardizem Heme -next blood draw coags -monitor cbc Metabolic -ins/outs, diuresis, monitor electrolytes and creatinine Alimentary -cardiac diet Neuro -no active issues DVT prophylaxis at all times - Xarelto TTS 40 min
[2018-07-04 12:00] VITALS: BP 136/70
--- NOTE | 2018-07-04 14:59 | PN- Att Addend ---
Attending Addendum Attending Brief Note Feeling better, diuresing well. Looking better. FiO2 requirements down to 50% .. Vital signs are stable, no fever. Better air entry. Appreciate pulmonary's machine set up operator input and recommendations. Will continue observation and diuresis. Follow-up labs. Intake & Output 07/04 1600 07/04 0400 07/03 1600 07/03 0400 07/02 1600 07/02 0400 Intake Total 1310 640 675 568 6094 120 Output Total 2375 500 3614 189 6379 350 Balance -1065 140 -1125 20 -1072 -230 Intake, IV 20 40 250 288 0 Intake, Oral 1290 640 560 180 790 120 Number 1 0 0 Bowel Movements Output, Urine 2375 500 8373 247 7333 350 Patient 160 lb 156 lb 156 lb Weight Weight Bed scale Measurement Method Current Medications Sig/Heena Start time Last Medication Dose Route Stop Time Status Admin Acetaminophen 650 MG Q6PRN PRN 06/30 1630 AC PO Albuterol Sulfate 3 ML BID 07/01 900 AC 07/04 INH 0950 Albuterol Sulfate 2 PUF Q4-6 PRN PRN 06/30 1615 AC INH Aspirin Buffered 81 MG DAILY 06/30 1607 AC 07/04 PO 0850 Atorvastatin Calcium 20 MG QPM 06/30 2100 AC 07/03 PO 2100 Benzonatate 100 MG TID 07/01 0430 AC 07/04 PO 1436 Budesonide/ 2 PUF BID 06/30 2100 AC 07/04 Formoterol Fumarate INH 0909 Diltiazem HCl 120 MG DAILY 06/30 1608 AC 07/04 PO 0851 Fluticasone 2 SPRAY AT BEDTIME 06/30 2100 AC 07/03 Propionate MARCO 2120 Furosemide 60 MG BID 07/02 2100 AC 07/04 IV 0909 Guaifenesin 1,200 MG Q12 06/30 2100 AC 07/04 PO 0849 Losartan Potassium 50 MG BID 06/30 2100 AC 07/04 PO 0850 Magnesium Oxide 400 MG DAILY 06/30 161 AC 07/04 PO 0850 Methylprednisolone 30 MG Q12 07/04 2100 AC IV Methylprednisolone 40 MG Q12 07/01 0900 DC 07/04 IV 0909 Metoprolol Succinate 25 MG DAILY 06/30 161 AC 07/04 PO 0848 Omeprazole 20 MG DAILY AC 06/30 160 AC 07/04 PO 0627 Rivaroxaban 15 MG DAILY 06/30 1610 AC 07/04 PO 0847 Laboratory Tests 07/04/18 0445: Anion Gap 8, Estimated GFR > 60, Glucose 158 H, Calcium 8.9, Phosphorus 4.8 H, Magnesium 2.3, Total Bilirubin 1.3, AST 33, ALT 34, Albumin 3.6, CBC w Diff MAN DIFF ORDERED, RBC 3.69 L, MCV 74.4 L, MCH 24.6 L, MCHC 33.0, RDW 19.2 H, MPV 9.0, Gran % 92.5 H, Lymphocytes % 5.0 L, Monocytes % 2.3, Eosinophils % 0, Basophils % 0.2, Absolute Granulocytes 14.8 H, Segmented Neutrophils 92 H, Band Neutrophils 1, Absolute Lymphocytes 0.8 L, Lymphocytes 3 L, Monocytes 4, Absolute Monocytes 0.4, Absolute Eosinophils 0, Absolute Basophils 0, Platelet Estimate ADEQUATE, Polychromasia 1+, Hypochromic-Microcytic 1+ 07/03/18 0355: Anion Gap 8, Estimated GFR > 60, Glucose 149 H, Calcium 9.0, Phosphorus 4.6 H, Magnesium 2.2, Total Bilirubin 1.0, AST 35, ALT 34, Albumin 3.5, CBC w Diff NO MAN DIFF REQ, RBC 3.72 L, MCV 74.5 L, MCH 24.9 L, MCHC 33.5, RDW 19.9 H, MPV 9.1, Gran % 95.4 H, Lymphocytes % 2.9 L, Monocytes % 1.7, Eosinophils % 0, Basophils % 0, Absolute Granulocytes 19.7 H, Absolute Lymphocytes 0.6 L, Absolute Monocytes 0.4, Absolute Eosinophils 0, Absolute Basophils 0 07/02/18 0840: Lactic Acid 2.8 H, Troponin I 0.01 07/02/18 0738: Lactic Acid Cancelled 07/02/18 0410: Anion Gap 9, Estimated GFR > 60, Glucose 155 H, Lactic Acid 2.6 H, Calcium 8.8 , Phosphorus 4.0, Magnesium 2.0, Total Bilirubin 0.6, AST 28, ALT 28, Albumin 3.4 L, CBC w Diff MAN DIFF ORDERED, RBC 3.76 L, MCV 74.1 L, MCH 24.8 L, MCHC 33.5, RDW 19.2 H, MPV 8.6, Gran % 94.3 H, Lymphocytes % 2.1 L, Monocytes % 3.5, Eosinophils % 0, Basophils % 0.1, Absolute Granulocytes 25.7 H, Segmented Neutrophils 99 H, Absolute Lymphocytes 0.6 L, Monocytes 1 L, Absolute Monocytes 0.9 H, Absolute Eosinophils 0, Absolute Basophils 0, Platelet Estimate ADEQUATE, Polychromasia 1+, Poikilocytosis 1+, Anisocytosis 1+, Microcytic Cells 1+, Ovalocytes 1+, Fld Total RBCs Counted 100 07/02/18 0032: Lactic Acid 2.3 H 07/02/18 0032: Anion Gap 8, Estimated GFR > 60, BUN/Creatinine Ratio 47.1 H, Magnesium 2.2, Troponin I 0.02 07/01/182104: Lactic Acid 3.3 H 07/01/182019: pH 7.50 H, pCO2 28 L, pO2 72 L, HCO3 22, ABG O2 Sat (Measured) 94.0 L, P-50 (Temp Corrected) N, Carboxyhemoglobin 0.3 L, O2 Concentration % 60, Temperature 97.0, O2 Delivery Method HFNC, Phlebotomy Draw Site LEFT RADIAL 07/01/182000: D-Dimer High Sensitivty 322 H 07/01/18 191: Anion Gap 14, Estimated GFR 52 L, BUN/Creatinine Ratio 28.0 H, Calcium 9.3, Phosphorus 3.7, Magnesium 2.2, Total Bilirubin 0.5, Direct Bilirubin 0.2, AST 28 , ALT 25, Alkaline Phosphatase 79, Troponin I < 0.01, Total Protein 6.7, Albumin 4.0, CBC w Diff NO MAN DIFF REQ, RBC 4.13 L, MCV 73.9 L, MCH 24.8 L, MCHC 33.5, RDW 19.0 H, MPV 8.7, Gran % 94.1 H, Lymphocytes % 2.5 L, Monocytes % 3.4, Eosinophils % 0, Basophils % 0, Absolute Granulocytes 21.2 H, Absolute Lymphocytes 0.6 L, Absolute Monocytes 0.8 H, Absolute Eosinophils 0, Absolute Basophils 0 Microbiology 07/02 115 LOWER RESP: Respiratory Culture - CAN Cancelled: SPECIMEN NOT RECEIVED IN LABORATORY 07/02 1150 LOWER RESP: Gram Stain - CAN Cancelled: SPECIMEN NOT RECEIVED IN LABORATORY 07/01 2214 BLOOD: Blood Culture - RES 07/01 2207 BLOOD: Blood Culture - RES 07/01 2110 URINE ROUT: Urine Culture - COMP 07/01 1945 UPPER RESP: Surveillance Culture - COMP METH RESIST STAPH AUREUS 07/01 1929 GI: Surveillance Culture - CAN Cancelled: NO SAMPLE COLLECTED Microbiology 07/02 115 LOWER RESP: Respiratory Culture - CAN Cancelled: SPECIMEN NOT RECEIVED IN LABORATORY 07/02 1150 LOWER RESP: Gram Stain - CAN Cancelled: SPECIMEN NOT RECEIVED IN LABORATORY 07/01 2214 BLOOD: Blood Culture - RES 07/01 2207 BLOOD: Blood Culture - RES 07/01 2110 URINE ROUT: Urine Culture - COMP 07/01 1945 UPPER RESP: Surveillance Culture - COMP METH RESIST STAPH AUREUS 07/01 1929 GI: Surveillance Culture - CAN Cancelled: NO SAMPLE COLLECTED Vital Signs Date Time Temp Pulse Resp B/P B/P Pulse O2 O2 Flow FiO2 Mean Ox Delivery Rate 07/04 1430 95 Nasal 50% Cannula 07/04 1200 97.6 96 34 136/70 96 Nasal 60% Cannula 07/04 1200 94 Nasal 60% Cannula 07/04 1130 95 Nasal 50% Cannula 07/04 0950 95 Nasal 60% Cannula 07/04 0900 98 Nasal 60% Cannula 07/04 0850 82 146/74 08 0848 82 146/74 07/04 0825 98 Nasal 60% Cannula 07/04 0825 84 100 07/04 0800 96 Nasal 50% Cannula 07/04 0700 96.9 88 24 148/68 96 Nasal 60% Cannula / 0546 88 97 / 0400 100 BIPAP 60% 07/04 0302 83 97 / 0033 91 97 07/04 0000 99 BIPAP 60% 07/04 0000 97.9 86 25 130/60 99 BIPAP 60% / 2300 87 99 08/ 2136 93 Nasal 75% Cannula 08/ 2100 89 18 141/66 08 2000 93 Nasal 75% Cannula 07/03 1918 96 Nasal 75% Cannula / 1600 94 Nasal 75% Cannula 08/ 1600 97.1 97 18 160/66 94 Nasal 75% Cannula White count slowly coming down.
[2018-07-04 16:00] VITALS: BP 130/64
--- NOTE | 2018-07-04 17:04 | PN- Cardiology ---
Subjective Subjective: Patient is relatively unchanged from a respiratory and hemodynamic standpoint. She requires high flow oxygen which has been reduced from 75% to 60% today, using the BiPAP at night. She has had net fluid loss of 1-2 L over the past 3 days with her present dosage of Lasix. There have been no overnight events and the patient has no specific complaints today. Objective Vital Signs and I&Os Vital Signs Date Time Temp Pulse Resp B/P B/P Pulse O2 O2 Flow FiO2 Mean Ox Delivery Rate 07/04 1430 95 Nasal 50% Cannula 07/04 1200 97.6 96 34 136/70 96 Nasal 60% Cannula 07/04 1200 94 Nasal 60% Cannula 07/04 1130 95 Nasal 50% Cannula 07/04 0950 95 Nasal 60% Cannula 07/04 0900 98 Nasal 60% Cannula 07/04 0850 82 146/74 07/04 0848 82 146/74 07/04 0825 98 Nasal 60% Cannula 07/04 0825 84 100 07/04 0800 96 Nasal 50% Cannula 07/04 0700 96.9 88 24 148/68 96 Nasal 60% Cannula 07/04 0546 88 97 07/04 0400 100 BIPAP 60% 07/04 0302 83 97 07/04 0033 91 97 07/04 0000 99 BIPAP 60% 07/04 0000 97.9 86 25 130/60 99 BIPAP 60% 07/03 2300 87 99 07/03 2136 93 Nasal 75% Cannula 07/03 2100 89 18 141/66 07/03 2000 93 Nasal 75% Cannula 07/03 1918 96 Nasal 75% Cannula Intake & Output 07/04 1600 11 0800 07/04 0000 07/03 1600 07/03 0800 07/03 0000 Intake Total 960 350 640 480 120 430 Output Total 1150 1225 500 850 875 410 Balance -190 -875 140 -370 -755 20 Intake, IV 20 40 250 Intake, Oral 940 350 640 440 120 180 Number 1 Bowel Movements Output, Urine 1150 1225 500 850 875 410 Patient 160 lb 156 lb Weight Physical Exam: General Appearance: well developed/nourished, no apparent distress, alert, awake Head: atraumatic Neck: normal inspection, supple Respiratory: normal breath sounds, good air entry bilaterally Cardiovascular: irregularly irregular, 3/6 systolic murmur LSB. Gastrointestinal: normal bowel sounds, soft Extremities: no edema, good capillary refill. Current Medications: Current Medications Sig/Heena Start time Last Medication Dose Route Stop Time Status Admin Acetaminophen 650 MG Q6PRN PRN 06/30 1630 AC PO Albuterol Sulfate 3 ML BID 07/01 0900 AC 07/04 INH 0950 Albuterol Sulfate 2 PUF Q4-6 PRN PRN 06/30 1615 AC INH Aspirin Buffered 81 MG DAILY 06/30 1607 AC 07/04 PO 0850 Atorvastatin Calcium 20 MG QPM 06/30 2100 AC 07/03 PO 2100 Benzonatate 100 MG TID 07/01 0430 AC 07/04 PO 1436 Budesonide/ 2 PUF BID 06/30 2100 AC 07/04 Formoterol Fumarate INH 0909 Diltiazem HCl 120 MG DAILY 06/30 1608 AC 07/04 PO 0851 Fluticasone 2 SPRAY AT BEDTIME 06/30 2100 AC 07/03 Propionate MARCO 2120 Furosemide 60 MG BID 07/02 2100 AC 07/04 IV 0909 Guaifenesin 1,200 MG Q12 06/30 2100 AC 07/04 PO 0849 Losartan Potassium 50 MG BID 06/30 2100 AC 07/04 PO 0850 Magnesium Oxide 400 MG DAILY 06/30 1610 AC 07/04 PO 0850 Methylprednisolone 30 MG Q12 07/04 2100 AC IV Methylprednisolone 40 MG Q12 07/01 0900 DC 07/04 IV 0909 Metoprolol Succinate 25 MG DAILY 06/30 1610 AC 07/04 PO 0848 Omeprazole 20 MG DAILY AC 06/30 1608 AC 07/04 PO 0627 Rivaroxaban 15 MG DAILY 06/30 161 AC 07/04 PO 0847 Results Last 48 Hrs of Labs/Mics: Laboratory Tests 07/04/18 0445: Anion Gap 8, Estimated GFR > 60, Glucose 158 H, Calcium 8.9, Phosphorus 4.8 H, Magnesium 2.3, Total Bilirubin 1.3, AST 33, ALT 34, Albumin 3.6, CBC w Diff MAN DIFF ORDERED, RBC 3.69 L, MCV 74.4 L, MCH 24.6 L, MCHC 33.0, RDW 19.2 H, MPV 9.0, Gran % 92.5 H, Lymphocytes % 5.0 L, Monocytes % 2.3, Eosinophils % 0, Basophils % 0.2, Absolute Granulocytes 14.8 H, Segmented Neutrophils 92 H, Band Neutrophils 1, Absolute Lymphocytes 0.8 L, Lymphocytes 3 L, Monocytes 4, Absolute Monocytes 0.4, Absolute Eosinophils 0, Absolute Basophils 0, Platelet Estimate ADEQUATE, Polychromasia 1+, Hypochromic-Microcytic 1+ 07/03/18 0355: Anion Gap 8, Estimated GFR > 60, Glucose 149 H, Calcium 9.0, Phosphorus 4.6 H, Magnesium 2.2, Total Bilirubin 1.0, AST 35, ALT 34, Albumin 3.5, CBC w Diff NO MAN DIFF REQ, RBC 3.72 L, MCV 74.5 L, MCH 24.9 L, MCHC 33.5, RDW 19.9 H, MPV 9.1, Gran % 95.4 H, Lymphocytes % 2.9 L, Monocytes % 1.7, Eosinophils % 0, Basophils % 0, Absolute Granulocytes 19.7 H, Absolute Lymphocytes 0.6 L, Absolute Monocytes 0.4, Absolute Eosinophils 0, Absolute Basophils 0 Assessment/Plan Assessment/Plan * This patient is being treated for a pneumonia although she is now going to be monitored off antibiotics. High pulmonary pressures secondary to mitral valve stenosis and primary lung fibrosis/disease. * Continue to diurese with Lasix at 60mg IV BID with careful monitoring of her BUN, creatinine and potassium. Continue afterload reduction with Losartan. Continue high flow oxygen and Bipap for increased respiratory rate with respiratory distress. * Continue Xarelto for stroke prophylaxis. Continue telemetry? Yes
--- NOTE | 2018-07-04 19:35 | Transfer of Care Summary ---
Hospital Course Course Hospital Course: Reason for ICU admission: Patient was transferred to ICU as she desaturated to 84%. Her chest x-ray showed pulmonary congestion and she received Lasix. Patient remained low threshold for intubation even on BiPAP that's why she was transferred to ICU. 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 Patient was transferred overnight to ICU in the setting of worsening breathing possibly due to pulmonary edema or congestive heart failure with acute hypoxic respiratory failure. Chest x-ray showed bilateral airspace opacities. Patient was given IV Lasix overnight. She remained on BiPAP and high flow oxygen 60%. Patient was pancultured and started on empiric antibiotics. Interval event in ICU: Patient was transferred to ICU for acute hypoxic respiratory failure due to acute on chronic heart failure secondary to mixed valvular disease(moderate to severe mitral stenosis, tricuspid regurgitation and aortic moderate regurgitation, pulmonary hypertension), she remained on BiPAP and high flow oxygen. Patient was given IV diuretics to decrease preload and she was kept on losartan to decrease afterload. Her IV lasix changed to PO. Cardiology was following the patient and recommendations were followed. Later on patient's oxygenation got better and she was weaned off from BiPAP. Patient remained on- oxygen that was later on weaned off. Patient is on 3 L of oxygen and maintaining saturation 97%. During her ICU stay cardiothoracic surgery to evaluate the patient for valve replacement. According to the cardiothoracic surgery, patient is high risk for surgery and patient agreed not to get involved replacement due to high risk for surgery. Initially patient was getting Solu- Medrol IV that was tapered and patient was placed on by mouth prednisone with tapering dose for her COPD. Initially patient was placed empirically on Ceptaz and vancomycin with suspicion of pneumonia but patient remained afebrile. ID consult was obtained and they recommended to keep patient off antibiotics. Her leukocytosis was due to steroid use and during ICU stay patient remained afebrile. Mechanical ventilation: Never been intubated although she was low threshold to be intubated initially. NPPV: Remained on BiPAP intermittently. Patient was weaned off from BiPAP and high flow oxygen. Antibiotic plan: Her empiric antibiotic therapy ceftaz and vancomycin was discontinued and she remained afebrile and her leukocytosis was due to steroid use. ID recommended to discontinue the antibiotics. Catheter/line plan: Patient has Joseph's cath today and she is getting IV Lasix. Joseph's catheter has been removed. Things to be followed on the floor: -Patient is on by mouth steroids with tapering dose. -Follow up with cardiology recommendations for her heart failure secondary to mixed valvular disease and diastolic heart failure. -Patient is on 3 L O2 with nasal cannula and trying to wean it off as she was not on any home O2. Nutrition: Heart healthy diet. DVT prophylaxis: Mechanical and patient already on xeralto. CODE STATUS: Full code. Assessment/Plan: Acute hypoxic respiratory failure:(improving) -Due to acute on chronic heart failure secondary to mixed valvular disease( moderate to severe mitral stenosis, tricuspid regurgitation and aortic moderate regurgitation), could be due to COPD exacerbation. Patient has bilateral opacities and infiltrates in the lung although she remained afebrile. -On 3 L of oxygen with nasal cannula and maintaining her saturation above 92% -Continue prednisone 40 mg for 3 days. And then taper. -Continue Symbicort, Flonase, teaslon, Mucinex -TRC nebulization as needed -Follow-up sputum culture. Not able to bring any sputum. -Moving patient out of the bed to chair and get PT evaluation. Acute on chronic CHF: -Patient's last echocardiogram showed ejection fraction 6570 percent with mitral valve stenosis, aortic insufficiency, tricuspid regurgitation (mixed valvular disease) and severe pulmonary hypertension. -Not good candidate for valvular surgery as recommended by CT surgery and patient is aware of this. -Patient is being managed with decrease preload and afterload reduction. -Continue PO Lasix 60 mg twice a day -Continue losartan for afterload reduction -Daily weight -Daily input and output monitoring -Repeat potassium and magnesium as needed History of atrial fibrillation: -Continue Xarelto for anticoagulation -Continue diltiazem and metoprolol for rate control. -Patient was started on amiodarone for chemical cardioversion if remained unsuccessful then Dc cardioversion can be tried as recommended by cardiology. Leukocytosis:(Improving) -Patient has WBC 10.9. Leukocytosis probably was due to steroid use. -We will keep monitoring her wbc and for any signs of infection. -Keep off antibiotics. History of GERD: -Continue omeprazole DVT prophylaxis: Mechanical and patient is already on Xarelto CODE STATUS: Full code
[2018-07-04 23:57] VITALS: BP 122/68
[2018-07-05] VITALS: BP 122/68
[2018-07-05 04:35] LABS: ABSOLUTE BASOPHIL COUNT 0 /CUMM (0.0-0.2); ABSOLUTE EOSINOPHIL COUNT 0 /CUMM (0.0-0.7); ABSOLUTE GRANULOCYTE CT 9.8 /CUMM (1.4-6.5); ABSOLUTE LYMPH COUNT 0.8 /CUMM (1.2-3.4); ABSOLUTE MONOCYTE COUNT 0.3 /CUMM (0.10-0.60); BASOPHIL % 0.1 % (0.0-2.0); EOSINOPHIL % 0 % (0-5); GRANULOCYTE % 90.2 % (42.2-75.2); HEMATOCRIT 26.6 % (37-47); MEAN CORPUSCULAR HGB 24.4 PG (27.0-31.0); MEAN CORPUSCULAR VOLUME 73.9 FL (81.0-99.0); MEAN PLATELET VOLUME 8.4 FL (7.4-10.4); PLATELET COUNT 349 /CUMM (130-400); RBC DISTRIBUTION WIDTH 19.1 % (11.5-14.5)
[2018-07-05 04:42] LABS: PT 15.9 SEC (9.4-12.5); PTT 23 SEC (25-37)
[2018-07-05 05:14] LABS: WHITE BLOOD CELL COUNT 10.9 /CUMM (4.8-10.8)
[2018-07-05 08:00] VITALS: BP 136/64
--- NOTE | 2018-07-05 08:07 | PN- Resident CRCU ---
Oracio HALL,Abigail 07/05/18 0807: Subjective HPI/CRCU Issues: Acute hypoxemic respiratory failure secondary to pulmonary edema in the setting of CHF secondary to mixed valvular heart disease and diastolic dysfuntion. History of COPD with recurrent bronchospasm. 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 Atrial fibrillation, on Xarelto, metoprolol and diltiazem. Multifocal infiltrates and bilateral pleural effusions. Leukocytosis likely secondary to steroids, underlying infectious process cannot be excluded. CT chest shows left lower lobe consolidation noting a superimposed infectious process cannot be excluded. 24 Hour Events: No overnight events. Patient remained afebrile overnight. Seen and examined this morning, having breakfast. Remained on high flow overnight. Reports improvement in symptoms. Maintaining saturation in 90s. Patient's oxygen saturation dropped down to 89% with slight movement during our encounter. Patient wants to try nasal cannula today will get in touch with respiratory therapist and see how she does Objective Vital Signs & I&O Last 8 Hrs of Vitals and I&O: Laboratory Tests 07/05 0420 Chemistry Sodium (137 - 145 mmol/L) 133 L Potassium (3.5 - 5.1 mmol/L) 3.3 L Chloride (98 - 107 mmol/L) 96 L Carbon Dioxide (22 - 30 mmol/L) 30 Anion Gap (5 - 16) 7 BUN (7 - 17 mg/dL) 44 H Creatinine (0.5 - 1.0 mg/dL) 0.8 Estimated GFR (>60 ml/min) > 60 Glucose (65 - 99 mg/dL) 160 H Calcium (8.4 - 10.2 mg/dL) 8.6 Phosphorus (2.5 - 4.5 mg/dL) 4.7 H Magnesium (1.6 - 2.3 mg/dL) 2.4 H Total Bilirubin (0.2 - 1.3 mg/dL) 1.2 AST (14 - 36 U/L) 24 ALT (9 - 52 U/L) 34 Albumin (3.5 - 5.0 g/dL) 3.3 L Coagulation PT (9.4 - 12.5 SEC) 15.9 H INR (0.90 - 1.19) 1.45 H APTT (25 - 37 SEC) 23 L Hematology CBC w Diff NO MAN DIFF REQ WBC (4.8 - 10.8 /CUMM) 10.9 H RBC (4.20 - 5.40 /CUMM) 3.60 L Hgb (12.0 - 16.0 G/DL) 8.8 L Hct (37 - 47 %) 26.6 L MCV (81.0 - 99.0 FL) 73.9 L MCH (27.0 - 31.0 PG) 24.4 L MCHC (33.0 - 37.0 G/DL) 33.0 RDW (11.5 - 14.5 %) 19.1 H Plt Count (130 - 400 /CUMM) 349 MPV (7.4 - 10.4 FL) 8.4 Gran % (42.2 - 75.2 %) 90.2 H Lymphocytes % (20.5 - 51.1 %) 7.0 L Monocytes % (1.7 - 9.3 %) 2.7 Eosinophils % (0 - 5 %) 0 Basophils % (0.0 - 2.0 %) 0.1 Absolute Granulocytes (1.4 - 6.5 /CUMM) 9.8 H Absolute Lymphocytes (1.2 - 3.4 /CUMM) 0.8 L Absolute Monocytes (0.10 - 0.60 /CUMM) 0.3 Absolute Eosinophils (0.0 - 0.7 /CUMM) 0 Absolute Basophils (0.0 - 0.2 /CUMM) 0 Vital Signs Date Time Temp Pulse Resp B/P B/P Pulse O2 O2 Flow FiO2 Mean Ox Delivery Rate 07/05 1026 95 Nasal 50% Cannula 07/05 0838 98 136/64 07/05 0836 99 138/64 07/05 0558 94 Nasal 50% Cannula 07/05 0400 99 Nasal 50% Cannula 07/05 0053 98 Nasal 50% Cannula 07/05 0000 96 Nasal 50% Cannula 07/05 0000 98.5 90 18 122/68 96 Nasal 50% Cannula 07/04 2357 97.8 88 20 122/68 100 Nasal Cannula 07/04 2255 95 Nasal 50% Cannula 07/04 2049 93 142/66 07/04 2014 93 Nasal 50% Cannula 07/04 2000 Nasal 50% Cannula 07/04 1700 93 Nasal 50% Cannula 07/04 1600 97 Nasal 50% Cannula 07/04 1600 97.4 82 20 130/64 97 Nasal 50% Cannula 07/04 1430 95 Nasal 50% Cannula 07/04 1200 97.6 96 34 136/70 96 Nasal 60% Cannula 07/04 1200 94 Nasal 60% Cannula 07/04 1130 95 Nasal 50% Cannula Intake & Output 07/05 1600 08 0800 08 0000 Intake Total 100 767 Output Total 635 1000 Balance -535 -233 Intake, IV 47 Intake, Oral 100 720 Output, Urine 635 1000 Exam General Appearance: no apparent distress, on high flow Head: atraumatic Neck: normal inspection Respiratory: wheezing (mild), no crackels Cardiovascular: irregularly irregular Gastrointestinal: normal bowel sounds, soft Extremities: no edema Current Medications: Current Medications Sig/Heena Start time Last Medication Dose Route Stop Time Status Admin Acetaminophen 650 MG Q6PRN PRN 06/30 1630 AC PO Albuterol Sulfate 3 ML BID 07/01 0900 AC 07/05 INH 1026 Albuterol Sulfate 2 PUF Q4-6 PRN PRN 06/30 1615 AC INH Aspirin Buffered 81 MG DAILY 06/30 1607 AC 07/05 PO 0838 Atorvastatin Calcium 20 MG QPM 06/30 2100 AC 07/04 PO 2049 Benzonatate 100 MG TID 07/01 0430 AC 07/05 PO 0837 Bisacodyl 5 MG DAILY 07/04 1921 AC 07/05 PO 0839 Budesonide/ 2 PUF BID 06/30 2100 AC 07/05 Formoterol Fumarate INH 0929 Diltiazem HCl 120 MG DAILY 06/30 1608 AC 07/05 PO 0838 Docusate Sodium 100 MG DAILY NEEDED PRN 07/04 2215 AC 07/04 PO 2328 Docusate Sodium 0 .STK-MED ONE 07/04 2205 DC PO Fluticasone 2 SPRAY AT BEDTIME 06/30 2100 AC 07/04 Propionate MARCO 2058 Furosemide 60 MG BID 07/02 2100 AC 07/05 IV 0929 Guaifenesin 1,200 MG Q12 06/30 2100 AC 07/05 PO 0837 Losartan Potassium 50 MG BID 06/30 2100 AC 07/05 PO 0838 Magnesium Oxide 400 MG DAILY 06/30 1610 AC 07/05 PO 0838 Methylprednisolone 30 MG ONCE ONE 07/05 0945 DC 07/05 IV 07/05 0946 0947 Methylprednisolone 40 MG ONCE ONE 07/05 0915 CAN IV 07/05 0916 Methylprednisolone 30 MG Q12 07/04 2100 DC 07/04 IV 2056 Methylprednisolone 40 MG Q12 07/01 09 DC 07/04 IV 0909 Metoprolol Succinate 25 MG DAILY 06/30 161 AC 07/05 PO 0836 Omeprazole 20 MG DAILY AC 06/30 1608 AC 07/05 PO 0530 Polyethylene Glycol 17 GM DAILY 07/04 1921 AC 07/05 PO 09 Potassium Chloride 40 MEQ ONCE ONE 07/05 900 DC 07/05 PO 07/05 0901 0929 Potassium Chloride 40 MEQ ONCE ONE 07/05 0515 DC 07/05 PO 07/05 0516 0522 Prednisone 40 MG DAILY 07/06 900 AC PO Prednisone 20 MG ONCE ONE 07/05 2000 AC PO 07/05 2001 Prednisone 40 MG DAILY 07/05 900 DC PO Rivaroxaban 15 MG DAILY 06/30 161 AC 07/05 PO 0836 Impression/Plan Impression/Problem List Impression: 87 year old female with a PMH of COPD, 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 Patient was transferred to ICU for management of acute hypoxic respiratory failure in setting of pulmonary edema and congestive heart failure. She is currently being treated and evaluated for following conditions. #Acute hypoxic respiratory failure: She has extensive past medical history of COPD bronchospasm non-small cell carcinoma carcinoid tumor with bilateral lower lobectomy status post radiation radiation pneumonitis. This visit she was being diuresed for acute on chronic congestive heart failure. Patient has severe valvular disease in setting of mitral stenosis and aortic stenosis. She was transferred to ICU for increased work of breathing desaturating and possible acute pulmonary edema. She was started on BiPAP and wa transitioned to high flow. She remained on high flow overnight maintaining saturation in 90s. She did desaturate to 89% on moving her legs wants to try nasal cannula. -Patient has been shifted to nasal cannula 2 L maintaining saturation of 96% -Continue high flow oxygen 60% and maintaining her saturation above 92%. -BiPAP if there is respiratory distress and increased work of breathing -Will start patient on p.o. prednisone 40 mg today -On aggressive diuresis with Lasix 60 mg IV twice daily and afterload reduction with losartan. Ins and outs, daily weights, electrolyte repletion -Continue Symbicort, Flonase, teaslon, Mucinex -TRC nebulization as needed -Follow-up sputum culture. Not able to bring any sputum. -Monitor patient off antibiotics, leukocytosis in setting of steroid use -Not good candidate for valvular surgery as recommended by CT surgery and patient is aware of this. #History of atrial fibrillation: -Continue Xarelto for anticoagulation -Continue diltiazem and metoprolol for rate control #History of GERD: -Continue omeprazole Heart healthy diet/Mechanical and patient is already on Xarelto/Full code #If patient does well with nasal cannula will downgrade to telemetry Problem List: 1. CHF (congestive heart failure) Pain Ratin Tomorrow's Labs & Rationales: cbc icu bundle Plan DVT/Prophylaxis: mechanical, pharmacological Terrell Valles MD 07/05/18 0850: Attending MD Review Statement Attending Sign Off Attending Cosign Statement: I have: examined this patient, reviewed aval EMR data, personally reviewd images, discussd w/resident/PA/BRAKE RELINER, discussed mgmt plan w/phyllis, discussed mgmt plan w/CM, discussed mgmt plan w/pt, agreed w/resident/PA/BRAKE RELINER, amended to note. Other Findings: ITerrell M.D. have examined this patient, reviewed available EMR data, personally reviewed images, discussed with resident/PA/BRAKE RELINER, discussed management plan with housestaff and nursing staff, discussed managment plan all of healthcare providers, discussed management plan with patient and/or family, agreed with resident/PA/BRAKE RELINER. The past history and parts of the chart have been autopopulated. 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, AI, severe TR) and pulmonary htn * hx of COPD with bronchospasm * a.fib on xarelto * hx of non-small cell lung ca and carcinoid - hx of b/l lower lobectomies, hx of radiation pneumonitis * improving leukocytosis Plan Respiratory -currently on high flow 60%, taper fio2 as necessary, monitor off bipap for now -pending CXR 07/05 -TRC/Nebs, continue inhalers -dc solumedrol -begin prednisone 40mg po daily, will taper during week, depending on clinical course ID -leukocytosis is presumed secondary to steroids, no signs of infection -ID consultation is appreciated and no antibiotics at this time CVS -cardiology/CT surgery consultations are reviewed and appreciated -ins/outs, diuresis -continue xarelto, cozaar, lipitor, toprol xl, asa, cardizem Heme -monitor cbc Metabolic -ins/outs, diuresis, monitor electrolytes and creatinine Alimentary -cardiac diet Neuro -no active issues DVT prophylaxis at all times - Xarelto TTS 35 min Feeling better - can be downgraded to telemetry
--- NOTE | 2018-07-05 08:32 | PN- Infect Dx ---
Subjective Subjective: Afebrile on steroids. She feels improved with no complaints. She has had no further hemoptysis. Objective Last 24 Hrs of Vital Signs/I&O Vital Signs Date Time Temp Pulse Resp B/P B/P Pulse O2 O2 Flow FiO2 Mean Ox Delivery Rate 07/05 0558 94 Nasal 50% Cannula 07/05 0400 99 Nasal 50% Cannula 07/05 0053 98 Nasal 50% Cannula 07/05 0000 96 Nasal 50% Cannula 07/05 0000 98.5 90 18 122/68 96 Nasal 50% Cannula 08/ 2357 97.8 88 20 122/68 100 Nasal Cannula / 2255 95 Nasal 50% Cannula / 2049 93 142/66 07/04 2014 93 Nasal 50% Cannula / 2000 Nasal 50% Cannula / 1700 93 Nasal 50% Cannula / 1600 97 Nasal 50% Cannula / 1600 97.4 82 20 130/64 97 Nasal 50% Cannula / 1430 95 Nasal 50% Cannula / 1200 97.6 96 34 136/70 96 Nasal 60% Cannula / 1200 94 Nasal 60% Cannula / 1130 95 Nasal 50% Cannula / 0950 95 Nasal 60% Cannula / 0900 98 Nasal 60% Cannula / 0850 82 146/74 07/04 0848 82 146/74 Intake & Output 07/05 1600 07/05 0800 07/05 0000 Intake Total 100 767 Output Total 635 1000 Balance -535 -233 Intake, IV 47 Intake, Oral 100 720 Output, Urine 635 1000 Physical Exam Other Physical Findings: She appears comfortable on 50% high flow oxygen Lungs scattered inspiratory wheezes Heart regular rhythm with no murmur Extremities trace pedal edema both lower extremities Joseph catheter remains in place Results Last 24 Hours of Lab Results: Laboratory Tests 07/05 0420 Chemistry Sodium (137 - 145 mmol/L) 133 L Potassium (3.5 - 5.1 mmol/L) 3.3 L Chloride (98 - 107 mmol/L) 96 L Carbon Dioxide (22 - 30 mmol/L) 30 Anion Gap (5 - 16) 7 BUN (7 - 17 mg/dL) 44 H Creatinine (0.5 - 1.0 mg/dL) 0.8 Estimated GFR (>60 ml/min) > 60 Glucose (65 - 99 mg/dL) 160 H Calcium (8.4 - 10.2 mg/dL) 8.6 Phosphorus (2.5 - 4.5 mg/dL) 4.7 H Magnesium (1.6 - 2.3 mg/dL) 2.4 H Total Bilirubin (0.2 - 1.3 mg/dL) 1.2 AST (14 - 36 U/L) 24 ALT (9 - 52 U/L) 34 Albumin (3.5 - 5.0 g/dL) 3.3 L Coagulation PT (9.4 - 12.5 SEC) 15.9 H INR (0.90 - 1.19) 1.45 H APTT (25 - 37 SEC) 23 L Hematology CBC w Diff NO MAN DIFF REQ WBC (4.8 - 10.8 /CUMM) 10.9 H RBC (4.20 - 5.40 /CUMM) 3.60 L Hgb (12.0 - 16.0 G/DL) 8.8 L Hct (37 - 47 %) 26.6 L MCV (81.0 - 99.0 FL) 73.9 L MCH (27.0 - 31.0 PG) 24.4 L MCHC (33.0 - 37.0 G/DL) 33.0 RDW (11.5 - 14.5 %) 19.1 H Plt Count (130 - 400 /CUMM) 349 MPV (7.4 - 10.4 FL) 8.4 Gran % (42.2 - 75.2 %) 90.2 H Lymphocytes % (20.5 - 51.1 %) 7.0 L Monocytes % (1.7 - 9.3 %) 2.7 Eosinophils % (0 - 5 %) 0 Basophils % (0.0 - 2.0 %) 0.1 Absolute Granulocytes (1.4 - 6.5 /CUMM) 9.8 H Absolute Lymphocytes (1.2 - 3.4 /CUMM) 0.8 L Absolute Monocytes (0.10 - 0.60 /CUMM) 0.3 Absolute Eosinophils (0.0 - 0.7 /CUMM) 0 Absolute Basophils (0.0 - 0.2 /CUMM) 0 Last 24 Hours of Jem Results: Blood cultures July 01 negative Assessment/Plan ID Impression: Stable, with improving respiratory status, on decreasing oxygen, temperatures normal (on steroids) and white blood cell count also now normal, off antibiotics , with no evidence for any underlying infection. She continues to diuresis on the increased dose of Lasix. Suggestion: 1. Remove Joseph catheter 2. Further management of her CHF per Cardiology 3. Taper steroids per Pulmonary 4. Continue to follow off antibiotics
--- NOTE | 2018-07-05 08:59 | RADIOLOGY REPORT ---
EXAMINATION: XR PORTABLE CHEST CLINICAL INFORMATION: Valvular heart failure. On IV Lasix. Hi flow. Follow-up of pulmonary edema. COMPARISON: Several prior chest x-rays, most recent of which is dated 07/02/2018. TECHNIQUE: Portable AP erect view of the chest was obtained. FINDINGS: EKG leads overlie the chest. The cardiomediastinal silhouette is enlarged and ectasia and tortuosity and calcification of the aorta is seen. Diffuse bilateral airspace disease with air bronchograms are again seen, asymmetrically more severe on the right side than the left, not significantly changed on the left side and perhaps minimally improved on the right side. Associated central vascular congestion and indistinctness is seen and there are likely small bilateral layering pleural effusions. There is chronic linear opacity in the left midlung, consistent with chronic atelectasis or scarring. No pneumothorax is seen. Included bony structures are unremarkable. IMPRESSION: 1. Bilateral, right greater than left pulmonary opacities persist, perhaps minimally improved on the right side. Associated layering pleural effusions are seen. Findings are consistent with ongoing pulmonary edema. 2. No significant change in chronic atelectasis or scarring in the left midlung.
--- NOTE | 2018-07-05 13:54 | PN- Att Addend ---
Attending Addendum Attending Brief Note Looking and feeling better, able to get up to the commode. Now on nasal oxygen with good O2 saturations. Other vital signs are stable urine output is good Better air entry. Decrease edema. Intake & Output 07/05 1600 07/05 0400 07/04 1600 07/04 0400 07/03 1600 07/03 0400 Intake Total 579 533 4559 640 600 430 Output Total 635 1000 2375 500 1725 410 Balance -535 -233 -1065 140 -1125 20 Intake, IV 47 20 40 250 Intake, Oral 634 599 0276 640 560 180 Number 1 Bowel Movements Output, Urine 635 1000 2375 500 1725 410 Patient 160 lb 156 lb Weight Current Medications Sig/Heena Start time Last Medication Dose Route Stop Time Status Admin Acetaminophen 650 MG Q6PRN PRN 06/30 1630 AC PO Albuterol Sulfate 3 ML BID 07/01 0900 AC 07/05 INH 1026 Albuterol Sulfate 2 PUF Q4-6 PRN PRN 06/30 1615 AC INH Aspirin Buffered 81 MG DAILY 06/30 1607 AC 07/05 PO 0838 Atorvastatin Calcium 20 MG QPM 06/30 2100 AC 07/04 PO 2049 Benzonatate 100 MG TID 07/01 0430 AC 07/05 PO 0837 Bisacodyl 5 MG DAILY 07/04 1921 AC 07/05 PO 0839 Budesonide/ 2 PUF BID 06/30 2100 AC 07/05 Formoterol Fumarate INH 0929 Diltiazem HCl 120 MG DAILY 06/30 1608 AC 07/05 PO 0838 Docusate Sodium 100 MG DAILY NEEDED PRN 07/04 2215 AC 07/04 PO 2328 Docusate Sodium 0 .STK-MED ONE 07/04 2205 DC PO Fluticasone 2 SPRAY AT BEDTIME 06/30 2100 AC 07/04 Propionate MARCO 2058 Furosemide 60 MG BID 07/02 2100 AC 07/05 IV 0929 Guaifenesin 1,200 MG Q12 06/30 2100 AC 07/05 PO 0837 Losartan Potassium 50 MG BID 06/30 2100 AC 07/05 PO 0838 Magnesium Oxide 400 MG DAILY 06/30 1610 AC 07/05 PO 0838 Methylprednisolone 30 MG ONCE ONE 07/05 0945 DC 07/05 IV 07/05 0946 0947 Methylprednisolone 40 MG ONCE ONE 07/05 0915 CAN IV 08/12 0916 Methylprednisolone 30 MG Q12 07/04 2100 DC 07/04 IV 7 Metoprolol Succinate 25 MG DAILY 06/30 161 AC 07/05 PO 835 Omeprazole 20 MG DAILY AC 06/30 1608 AC 07/05 PO 0530 Polyethylene Glycol 17 GM DAILY 07/04 192 AC 07/05 PO 09 Potassium Chloride 40 MEQ ONCE ONE 07/05 900 DC 07/05 PO 07/05 Potassium Chloride 40 MEQ ONCE ONE 07/05 515 DC 07/05 PO 07/05 516 05 Prednisone 40 MG DAILY 07/06 900 AC PO Prednisone 20 MG ONCE ONE 07/05 2000 AC PO 07/05 2001 Prednisone 40 MG DAILY 07/05 900 DC PO Rivaroxaban 15 MG DAILY 06/30 161 AC 07/05 PO 835 Laboratory Tests 07/05/18 0420: Anion Gap 7, Estimated GFR > 60, Glucose 160 H, Calcium 8.6, Phosphorus 4.7 H, Magnesium 2.4 H, Total Bilirubin 1.2, AST 24, ALT 34, Albumin 3.3 L, PT 15.9 H, INR 1.45 H, APTT 23 L, CBC w Diff NO MAN DIFF REQ, RBC 3.60 L, MCV 73.9 L , MCH 24.4 L, MCHC 33.0, RDW 19.1 H, MPV 8.4, Gran % 90.2 H, Lymphocytes % 7.0 L, Monocytes % 2.7, Eosinophils % 0, Basophils % 0.1, Absolute Granulocytes 9.8 H, Absolute Lymphocytes 0.8 L, Absolute Monocytes 0.3, Absolute Eosinophils 0, Absolute Basophils 0 07/04/18 0445: Anion Gap 8, Estimated GFR > 60, Glucose 158 H, Calcium 8.9, Phosphorus 4.8 H, Magnesium 2.3, Total Bilirubin 1.3, AST 33, ALT 34, Albumin 3.6, CBC w Diff MAN DIFF ORDERED, RBC 3.69 L, MCV 74.4 L, MCH 24.6 L, MCHC 33.0, RDW 19.2 H, MPV 9.0, Gran % 92.5 H, Lymphocytes % 5.0 L, Monocytes % 2.3, Eosinophils % 0, Basophils % 0.2, Absolute Granulocytes 14.8 H, Segmented Neutrophils 92 H, Band Neutrophils 1, Absolute Lymphocytes 0.8 L, Lymphocytes 3 L, Monocytes 4, Absolute Monocytes 0.4, Absolute Eosinophils 0, Absolute Basophils 0, Platelet Estimate ADEQUATE, Polychromasia 1+, Hypochromic-Microcytic 1+ 07/03/18 0355: Anion Gap 8, Estimated GFR > 60, Glucose 149 H, Calcium 9.0, Phosphorus 4.6 H, Magnesium 2.2, Total Bilirubin 1.0, AST 35, ALT 34, Albumin 3.5, CBC w Diff NO MAN DIFF REQ, RBC 3.72 L, MCV 74.5 L, MCH 24.9 L, MCHC 33.5, RDW 19.9 H, MPV 9.1, Gran % 95.4 H, Lymphocytes % 2.9 L, Monocytes % 1.7, Eosinophils % 0, Basophils % 0, Absolute Granulocytes 19.7 H, Absolute Lymphocytes 0.6 L, Absolute Monocytes 0.4, Absolute Eosinophils 0, Absolute Basophils 0 Vital Signs Date Time Temp Pulse Resp B/P B/P Pulse O2 O2 Flow FiO2 Mean Ox Delivery Rate 07/05 1056 95 Nasal 3.0L Cannula 07/05 1026 95 Nasal 50% Cannula 07/05 0838 98 136/64 07/05 0836 99 138/64 08 0800 96 Nasal 50% Cannula 07/05 0800 97.1 97 22 136/64 96 Nasal 50% Cannula 07/05 0558 94 Nasal 50% Cannula 07/05 0400 99 Nasal 50% Cannula 07/05 0053 98 Nasal 50% Cannula 07/05 0000 96 Nasal 50% Cannula 07/05 0000 98.5 90 18 122/68 96 Nasal 50% Cannula 07/04 2357 97.8 88 20 122/68 100 Nasal Cannula 07/04 2255 95 Nasal 50% Cannula 07/04 2049 93 142/66 07/04 2014 93 Nasal 50% Cannula 08 2000 Nasal 50% Cannula 08 1700 93 Nasal 50% Cannula 08/ 1600 97 Nasal 50% Cannula 08/ 1600 97.4 82 20 130/64 97 Nasal 50% Cannula / 1430 95 Nasal 50% Cannula White count coming down. Patient now stable to go to telemetry.
[2018-07-05 16:00] VITALS: BP 112/64
--- NOTE | 2018-07-05 16:58 | PN- Cardiology ---
Subjective Subjective: No acute events. Patient feels somewhat better, less dyspneic. Net negative fluid balance again 1.5L/24 hours. Now saturating well with O2 by NC 3L/min. Objective Vital Signs and I&Os Vital Signs Date Time Temp Pulse Resp B/P B/P Pulse O2 O2 Flow FiO2 Mean Ox Delivery Rate 07/05 1600 97.5 118 22 112/64 95 Nasal 3.0L Cannula 07/05 1056 95 Nasal 3.0L Cannula 07/05 1026 95 Nasal 50% Cannula 07/05 0838 98 136/64 07/05 0836 99 138/64 07/05 0800 96 Nasal 50% Cannula 07/05 0800 97.1 97 22 136/64 96 Nasal 50% Cannula 07/05 0558 94 Nasal 50% Cannula 07/05 0400 99 Nasal 50% Cannula 07/05 0053 98 Nasal 50% Cannula 07/05 0000 96 Nasal 50% Cannula 07/05 0000 98.5 90 18 122/68 96 Nasal 50% Cannula 07/04 2357 97.8 88 20 122/68 100 Nasal Cannula 07/04 2255 95 Nasal 50% Cannula 07/04 2049 93 142/66 07/04 2014 93 Nasal 50% Cannula 07/04 2000 Nasal 50% Cannula 07/04 1700 93 Nasal 50% Cannula Intake & Output 07/05 1600 07/05 0800 07/05 0000 07/04 1600 07/04 0800 07/04 0000 Intake Total 520 100 767 960 350 640 Output Total 1481 744 3760 1150 1225 500 Balance -600 -535 -233 -190 -875 140 Intake, IV 47 20 Intake, Oral 520 100 720 940 350 640 Number 3 Bowel Movements Output, Urine 0470 820 4396 1150 1225 500 Patient 160 lb Weight Physical Exam: General Appearance: well developed/nourished, no apparent distress, alert, awake Head: atraumatic Neck: normal inspection, supple Respiratory: normal breath sounds, good air entry bilaterally Cardiovascular: irregularly irregular, 3/6 systolic murmur LSB. Gastrointestinal: normal bowel sounds, soft Extremities: no edema, good capillary refill. Current Medications: Current Medications Sig/Heena Start time Last Medication Dose Route Stop Time Status Admin Acetaminophen 650 MG Q6PRN PRN 06/30 1630 AC PO Albuterol Sulfate 3 ML BID 07/01 0900 AC 07/05 INH 1026 Albuterol Sulfate 2 PUF Q4-6 PRN PRN 06/30 1615 AC INH Aspirin Buffered 81 MG DAILY 06/30 1607 AC 07/05 PO 0838 Atorvastatin Calcium 20 MG QPM 06/30 2100 AC 07/04 PO 2049 Benzonatate 100 MG TID 07/01 0430 AC 07/05 PO 1620 Bisacodyl 5 MG DAILY 07/04 192 AC 07/05 PO 0839 Budesonide/ 2 PUF BID 06/30 2100 AC 07/05 Formoterol Fumarate INH 0929 Diltiazem HCl 120 MG DAILY 06/30 1608 AC 07/05 PO 0838 Docusate Sodium 100 MG DAILY NEEDED PRN 07/04 221 AC 07/04 PO 2328 Docusate Sodium 0 .STK-MED ONE 07/04 2205 DC PO Fluticasone 2 SPRAY AT BEDTIME 06/30 2100 AC 07/04 Propionate MARCO 2058 Furosemide 60 MG BID 07/02 2100 AC 07/05 IV 0929 Guaifenesin 1,200 MG Q12 06/30 2100 AC 07/05 PO 0837 Losartan Potassium 50 MG BID 06/30 2100 AC 07/05 PO 0838 Magnesium Oxide 400 MG DAILY 06/30 1610 AC 07/05 PO 0838 Methylprednisolone 30 MG ONCE ONE 07/05 0945 DC 07/05 IV 07/05 0946 0947 Methylprednisolone 40 MG ONCE ONE 07/05 915 CAN IV 07/05 0916 Methylprednisolone 30 MG Q12 07/04 2100 DC 07/04 IV 205 Metoprolol Succinate 25 MG DAILY 06/30 1610 AC 07/05 PO 0836 Omeprazole 20 MG DAILY AC 06/30 160 AC 07/05 PO 0530 Polyethylene Glycol 17 GM DAILY 07/04 1921 AC 07/05 PO 0929 Potassium Chloride 40 MEQ ONCE ONE 07/05 09 DC 07/05 PO 07/05 0901 0929 Potassium Chloride 40 MEQ ONCE ONE 07/05 05 DC 07/05 PO 07/05 0516 0522 Prednisone 40 MG DAILY 07/06 900 AC PO Prednisone 20 MG ONCE ONE 07/05 2000 AC PO 07/05 2001 Prednisone 40 MG DAILY 07/05 900 DC PO Rivaroxaban 15 MG DAILY 06/30 1610 AC 07/05 PO 0836 Results Last 48 Hrs of Labs/Mics: Laboratory Tests 07/05/18 0420: Anion Gap 7, Estimated GFR > 60, Glucose 160 H, Calcium 8.6, Phosphorus 4.7 H, Magnesium 2.4 H, Total Bilirubin 1.2, AST 24, ALT 34, Albumin 3.3 L, PT 15.9 H, INR 1.45 H, APTT 23 L, CBC w Diff NO MAN DIFF REQ, RBC 3.60 L, MCV 73.9 L , MCH 24.4 L, MCHC 33.0, RDW 19.1 H, MPV 8.4, Gran % 90.2 H, Lymphocytes % 7.0 L, Monocytes % 2.7, Eosinophils % 0, Basophils % 0.1, Absolute Granulocytes 9.8 H, Absolute Lymphocytes 0.8 L, Absolute Monocytes 0.3, Absolute Eosinophils 0, Absolute Basophils 0 07/04/18 0445: Anion Gap 8, Estimated GFR > 60, Glucose 158 H, Calcium 8.9, Phosphorus 4.8 H, Magnesium 2.3, Total Bilirubin 1.3, AST 33, ALT 34, Albumin 3.6, CBC w Diff MAN DIFF ORDERED, RBC 3.69 L, MCV 74.4 L, MCH 24.6 L, MCHC 33.0, RDW 19.2 H, MPV 9.0, Gran % 92.5 H, Lymphocytes % 5.0 L, Monocytes % 2.3, Eosinophils % 0, Basophils % 0.2, Absolute Granulocytes 14.8 H, Segmented Neutrophils 92 H, Band Neutrophils 1, Absolute Lymphocytes 0.8 L, Lymphocytes 3 L, Monocytes 4, Absolute Monocytes 0.4, Absolute Eosinophils 0, Absolute Basophils 0, Platelet Estimate ADEQUATE, Polychromasia 1+, Hypochromic-Microcytic 1+ Assessment/Plan Assessment/Plan CHF in the setting of mitral valve stenosis. Treated for a pneumonia although she is now going to be monitored off antibiotics. High pulmonary pressures secondary to mitral valve stenosis and primary lung fibrosis/disease. * Continue to diurese with Lasix at 60mg IV BID with careful monitoring of her BUN, creatinine and potassium. Continue afterload reduction with Losartan. Continue high flow oxygen and Bipap for increased respiratory rate with respiratory distress. * Continue Xarelto for stroke prophylaxis. Continue telemetry? Yes
[2018-07-05 23:00] VITALS: BP 140/64
--- NOTE | 2018-07-06 06:58 | PN- Resident CRCU ---
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 History of COPD with recurrent bronchospasm. 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 Atrial fibrillation, on Xarelto, metoprolol and diltiazem. Multifocal infiltrates and bilateral pleural effusions. Leukocytosis likely secondary to steroids, underlying infectious process cannot be excluded. CT chest shows left lower lobe consolidation noting a superimposed infectious process cannot be excluded. 24 Hour Events: No overnight events. Patient remained afebrile. Seen and examined this morning. She denied chest pain, nausea, vomiting, chills, fever, abdominal pain and dysuria. Patient didn't use BiPAP last time. Her high flow oxygen has been weaned off. She is using 3 L of oxygen and maintaining saturation 97%. Patient reported intermittent cough. We will ambulate the patient check her saturations. Patient is feeling weak from legs and we will get the PT evaluation. Objective Vital Signs & I&O Last 8 Hrs of Vitals and I&O: Intake & Output 07/06 1600 07/06 0800 07/06 0000 Intake Total 120 120 Output Total 550 850 Balance -430 -730 Intake, Oral 120 120 Number 0 0 Bowel Movements Output, Urine 550 850 Patient 164 lb Weight Weight Bed scale Measurement Method Laboratory Tests 07/06 0740 Chemistry Sodium (137 - 145 mmol/L) 135 L Potassium (3.5 - 5.1 mmol/L) 4.3 Chloride (98 - 107 mmol/L) 99 Carbon Dioxide (22 - 30 mmol/L) 29 Anion Gap (5 - 16) 7 BUN (7 - 17 mg/dL) 38 H Creatinine (0.5 - 1.0 mg/dL) 0.8 Estimated GFR (>60 ml/min) > 60 Glucose (65 - 99 mg/dL) 126 H Calcium (8.4 - 10.2 mg/dL) 8.6 Phosphorus (2.5 - 4.5 mg/dL) 4.6 H Magnesium (1.6 - 2.3 mg/dL) 2.5 H Total Bilirubin (0.2 - 1.3 mg/dL) 1.4 H AST (14 - 36 U/L) 24 ALT (9 - 52 U/L) 36 Albumin (3.5 - 5.0 g/dL) 3.2 L Exam General Appearance: well developed/nourished, no apparent distress, alert, awake Head: atraumatic Neck: normal inspection, supple Respiratory: normal breath sounds, chest non-tender Cardiovascular: regular rate/rhythm, edema Gastrointestinal: normal bowel sounds, soft Extremities: normal inspection, no edema Skin Temp/Moisture Exam: Warm/Dry Sepsis Skin Exam (color): Normal for Ethnicity Current Medications: Current Medications Sig/Heena Start time Last Medication Dose Route Stop Time Status Admin Acetaminophen 650 MG Q6PRN PRN 06/30 1630 AC PO Albuterol Sulfate 3 ML BID 07/01 0900 AC 07/06 INH 1016 Albuterol Sulfate 2 PUF Q4-6 PRN PRN 06/30 161 AC INH Aspirin Buffered 81 MG DAILY 06/30 1607 AC 07/06 PO 0857 Atorvastatin Calcium 20 MG QPM 06/30 2100 AC 07/05 PO 2024 Benzonatate 100 MG TID 07/01 0430 AC 07/06 PO 0856 Bisacodyl 5 MG DAILY 07/04 192 AC 07/06 PO 0858 Budesonide/ 2 PUF BID 06/30 2100 AC 07/06 Formoterol Fumarate INH 0854 Diltiazem HCl 120 MG DAILY 06/30 1608 AC 07/06 PO 0858 Docusate Sodium 100 MG DAILY NEEDED PRN 07/04 2215 AC 07/04 PO 2328 Fluticasone 2 SPRAY AT BEDTIME 06/30 2100 AC 07/05 Propionate MARCO 2027 Furosemide 60 MG BID 07/02 2100 AC 07/06 IV 0854 Guaifenesin 1,200 MG Q12 06/30 2100 AC 07/06 PO 0857 Losartan Potassium 50 MG BID 06/30 2100 AC 07/06 PO 0858 Magnesium Oxide 400 MG DAILY 06/30 1610 AC 07/06 PO 0857 Melatonin 0 .STK-MED ONE 07/06 101 DC PO Melatonin 5 MG ONCE ONE 07/06 010 DC 07/06 PO 07/06 010 0102 Metoprolol Succinate 25 MG DAILY 06/30 1610 AC 07/06 PO 0855 Omeprazole 20 MG DAILY AC 06/30 1608 AC 07/06 PO 0639 Polyethylene Glycol 17 GM DAILY 07/04 192 AC 07/06 PO 0854 Prednisone 5 MG DAILY 07/17 0900 AC PO 07/20 859 Prednisone 10 MG DAILY 07/14 900 AC PO 07/17 859 Prednisone 20 MG DAILY 07/11 900 AC PO 07/14 859 Prednisone 30 MG DAILY 07/08 900 AC PO 07/11 859 Prednisone 40 MG DAILY 07/07 900 CAN PO 07/20 859 Prednisone 40 MG DAILY 07/07 900 AC PO 07/08 0859 Prednisone 40 MG DAILY 07/06 09 DC 07/06 PO 0856 Prednisone 20 MG ONCE ONE 07/05 2000 DC 07/05 PO 07/05 Rivaroxaban 15 MG DAILY 06/30 161 AC 07/06 PO 0855 Impression/Plan Impression/Problem List Impression: 87 year old female with a PMH of COPD, 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 Patient was transferred overnight to ICU in the setting of worsening breathing possibly due to pulmonary edema or congestive heart failure with acute hypoxic respiratory failure. Chest x-ray showed bilateral airspace opacities. Patient was given IV Lasix overnight. She remained on BiPAP and high flow oxygen 60%. Patient was pancultured and started on empiric antibiotics. Acute hypoxic respiratory failure:(improving) -Due to acute on chronic heart failure secondary to mixed valvular disease( moderate to severe mitral stenosis, tricuspid regurgitation and aortic moderate regurgitation), could be due to COPD exacerbation. Patient has bilateral opacities and infiltrates in the lung although she remained afebrile. -On 3 L of oxygen with nasal cannula and maintaining her saturation above 92% -Continue prednisone 40 mg for 3 days. And then taper. -Continue Symbicort, Flonase, teaslon, Mucinex -TRC nebulization as needed -Follow-up sputum culture. Not able to bring any sputum. -Moving patient out of the bed to chair and get PT evaluation. Acute on chronic CHF: -Patient's last echocardiogram showed ejection fraction 6570 percent with mitral valve stenosis, aortic insufficiency, tricuspid regurgitation (mixed valvular disease) and severe pulmonary hypertension. -Not good candidate for valvular surgery as recommended by CT surgery and patient is aware of this. -Patient is being managed with decrease preload and afterload reduction. -Continue iv Lasix 60 mg twice a day -Continue losartan for afterload reduction -Daily weight -Daily input and output monitoring -Repeat potassium and magnesium as needed History of atrial fibrillation: -Continue Xarelto for anticoagulation -Continue diltiazem and metoprolol for rate control Leukocytosis:(Improving) -Patient has WBC 10.9 yesterday. Leukocytosis for bradycardia was due to steroid use. -We will keep monitoring her wbc and for any signs of infection. -Keep off antibiotics. History of GERD: -Continue omeprazole DVT prophylaxis: Mechanical and patient is already on Xarelto CODE STATUS: Full code Problem List: 1. CHF (congestive heart failure) 2. Acute respiratory failure with hypoxia 3. Leukocytosis Pain Ratin Pain Location: none Pain Plan: pain pathway Tomorrow's Labs & Rationales: icu bundle Plan DVT/Prophylaxis: mechanical, pharmacological
--- NOTE | 2018-07-06 07:34 | PN- CRCU ---
Subjective HPI/Critical Care Issues: The patient is awake and alert. She is feeling much better overall. She is now on nasal cannula and her oxygenation has significantly improved. She no longer requires Bipap. She feels strong enough to get out of bed. There were no overnight events. Objective Current Medications: Current Medications Sig/Heena Start time Last Medication Dose Route Stop Time Status Admin Acetaminophen 650 MG Q6PRN PRN 06/30 1630 AC PO Albuterol Sulfate 3 ML BID 07/01 0900 AC 07/05 INH 1935 Albuterol Sulfate 2 PUF Q4-6 PRN PRN 06/30 1615 AC INH Aspirin Buffered 81 MG DAILY 06/30 1607 AC 07/05 PO 0838 Atorvastatin Calcium 20 MG QPM 06/30 2100 AC 07/05 PO 202 Benzonatate 100 MG TID 07/01 0430 AC 07/05 PO 202 Bisacodyl 5 MG DAILY 07/04 192 AC 07/05 PO 0839 Budesonide/ 2 PUF BID 06/30 2100 AC 07/05 Formoterol Fumarate INH 202 Diltiazem HCl 120 MG DAILY 06/30 1608 AC 07/05 PO 0838 Docusate Sodium 100 MG DAILY NEEDED PRN 07/04 2215 AC 07/04 PO 2328 Fluticasone 2 SPRAY AT BEDTIME 06/30 2100 AC 07/05 Propionate MARCO 2027 Furosemide 60 MG BID 07/02 2100 AC 07/05 IV 202 Guaifenesin 1,200 MG Q12 06/30 2100 AC 07/05 PO 202 Losartan Potassium 50 MG BID 06/30 2100 AC 07/05 PO 202 Magnesium Oxide 400 MG DAILY 06/30 1610 AC 07/05 PO 0838 Melatonin 0 .STK-MED ONE 07/06 101 DC PO Melatonin 5 MG ONCE ONE 07/06 010 DC 07/06 PO 07/06 010 0102 Methylprednisolone 30 MG ONCE ONE 07/05 0945 DC 07/05 IV 07/05 0946 0947 Methylprednisolone 40 MG ONCE ONE 07/05 0915 CAN IV 07/05 0916 Methylprednisolone 30 MG Q12 07/04 2100 DC 07/04 IV 205 Metoprolol Succinate 25 MG DAILY 06/30 1610 AC 08 PO 0836 Omeprazole 20 MG DAILY AC 06/30 1608 AC 07/06 PO 0639 Polyethylene Glycol 17 GM DAILY 07/04 1921 AC 07/05 PO 0929 Potassium Chloride 40 MEQ ONCE ONE 07/05 900 DC 07/05 PO 07/05 901 09 Prednisone 40 MG DAILY 07/06 900 AC PO Prednisone 20 MG ONCE ONE 07/05 2000 DC 07/05 PO 07/05 Prednisone 40 MG DAILY 07/05 900 DC PO Rivaroxaban 15 MG DAILY 06/30 1610 AC 07/05 PO 0836 Vital Signs & I&O Last 24 Hrs of Vitals and I&O: Vital Signs Date Time Temp Pulse Resp B/P B/P Pulse O2 O2 Flow FiO2 Mean Ox Delivery Rate 07/06 0000 97 Nasal 2.0L Cannula 07/05 2300 96.8 87 21 140/64 98 Nasal 2.0L Cannula 07/05 2025 97.0 95 28 164/70 07/05 1938 93 Nasal 3.0L Cannula 07/05 1600 95 Nasal 3.0L Cannula 07/05 1600 97.5 118 22 112/64 95 Nasal 3.0L Cannula 07/05 1056 95 Nasal 3.0L Cannula 07/05 1026 95 Nasal 50% Cannula 07/05 0838 98 136/64 07/05 0836 99 138/64 07/05 0800 96 Nasal 50% Cannula 07/05 0800 97.1 97 22 136/64 96 Nasal 50% Cannula Intake & Output 07/06 0800 07/06 0000 07/05 1600 Intake Total 120 120 520 Output Total 131 660 2776 Balance -430 -730 -600 Intake, Oral 120 120 520 Number 0 0 3 Bowel Movements Output, Urine 591 007 7860 Patient 164 lb Weight Weight Bed scale Measurement Method Physical Exam General Appearance: well developed/nourished, no apparent distress, alert, awake , comfortable Head: atraumatic Eyes: Bilateral: PERRL. Neck: supple Respiratory: Minimal wheezing, decreased breath sounds at lung bases, diffuse crackles Cardiovascular: systolic murmur, irregularly irregular Gastrointestinal: normal bowel sounds, soft, non-tender Extremities: bilateral lower extremity edema Skin: intact, normal color, warm/dry Results Last 24 Hrs of Lab Results: None available. Impression/Plan Impression/Plan Impression/Plan: 1. Decompensated CHF in the setting of valvular heart disease (moderate to severe MS, AI, severe TR), with severe pulmonary hypertension, with acute hypoxemic respiratory failure secondary to pulmonary edema. 2. History of COPD with recurrent bronchospasm. 3. 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 4. Atrial fibrillation, on Xarelto, metoprolol and diltiazem. 5. Multifocal infiltrates and bilateral pleural effusions. 6. Improving leukocytosis. Recommendations: * Discontinue pope, but continue to monitor I & Os. * Continue to wean down oxygen as tolerated, keep saturations greater than 92%. * Continue nebs/total respiratory care and current inhaler regimen. * Prednisone taper: 40 mg for 3 days, 30 mg for 3 days, 20 mg for 3 days, 10 mg for 3 days, and 5 mg for 3 days then stop. Will adjust taper if needed for patient's clinical course. * Monitor off antibiotics. * Follow-up cardiology recommendations. * Continue diuresis. * Continue Xarelto, Cozaar, Lipitor, Toprol-XL, aspirin and Cardizem. * Physical therapy consult, ambulate and out of bed to chair as much as possible.
[2018-07-06 08:00] VITALS: BP 148/82
--- NOTE | 2018-07-06 08:09 | RADIOLOGY REPORT ---
EXAMINATION: XR PORTABLE CHEST CLINICAL INFORMATION: CHF follow-up. COMPARISON: 07/05/2018. TECHNIQUE: Portable frontal view of the chest was obtained. FINDINGS: The cardiomediastinal silhouette is unchanged. Unchanged left infrahilar/basilar opacity and small bilateral pleural effusions. Improved central vascular congestion, interstitial and alveolar edema. IMPRESSION: Improvement in pulmonary edema. Unchanged left infrahilar/basilar airspace consolidation. Unchanged small bilateral pleural effusions.
--- NOTE | 2018-07-06 10:12 | PN- Infect Dx ---
Subjective Subjective: Afebrile on steroids. She feels well with no complaints. Objective Last 24 Hrs of Vital Signs/I&O Vital Signs Date Time Temp Pulse Resp B/P B/P Pulse O2 O2 Flow FiO2 Mean Ox Delivery Rate 07/06 0858 88 138/66 07/06 0855 88 138/66 07/06 0000 97 Nasal 2.0L Cannula 07/05 2300 96.8 87 21 140/64 98 Nasal 2.0L Cannula 07/055 97.0 95 28 164/70 07/05 1938 93 Nasal 3.0L Cannula 07/05 1600 95 Nasal 3.0L Cannula 07/05 1600 97.5 118 22 112/64 95 Nasal 3.0L Cannula 07/05 1056 95 Nasal 3.0L Cannula 07/05 1026 95 Nasal 50% Cannula Intake & Output 07/06 1600 07/06 0800 07/06 0000 Intake Total 120 120 Output Total 550 850 Balance -430 -730 Intake, Oral 120 120 Number 0 0 Bowel Movements Output, Urine 550 850 Patient 164 lb Weight Weight Bed scale Measurement Method Physical Exam Other Physical Findings: She appears comfortable in no acute distress Lungs are mostly clear Heart irregular rhythm with a 2/6 systolic ejection murmur Extremities no cyanosis, clubbing or edema Joseph catheter remains in place Results Last 24 Hours of Lab Results: Laboratory Tests 07/06 0740 Chemistry Sodium (137 - 145 mmol/L) 135 L Potassium (3.5 - 5.1 mmol/L) 4.3 Chloride (98 - 107 mmol/L) 99 Carbon Dioxide (22 - 30 mmol/L) 29 Anion Gap (5 - 16) 7 BUN (7 - 17 mg/dL) 38 H Creatinine (0.5 - 1.0 mg/dL) 0.8 Estimated GFR (>60 ml/min) > 60 Glucose (65 - 99 mg/dL) 126 H Calcium (8.4 - 10.2 mg/dL) 8.6 Phosphorus (2.5 - 4.5 mg/dL) 4.6 H Magnesium (1.6 - 2.3 mg/dL) 2.5 H Total Bilirubin (0.2 - 1.3 mg/dL) 1.4 H AST (14 - 36 U/L) 24 ALT (9 - 52 U/L) 36 Albumin (3.5 - 5.0 g/dL) 3.2 L Last 24 Hours of Jem Results: No recent cultures Recent Imaging Studies: Chest x-ray July 23 marked improvement in pulmonary edema Assessment/Plan ID Impression: Markedly improved, with a continue decreased in her oxygen requirements with diuresis, now on 2 L of nasal oxygen, with improvement in her chest x-ray, temperatures remaining normal (on steroids) and white blood cell count also normal off antibiotics, with no evidence of any infection. Suggestion: 1. Remove Joseph catheter 2. Further management of her CHF per Cardiology 3. Continue to taper steroids per Pulmonary 4. Continue to follow off antibiotics Will no longer follow at this time but please call with any questions
--- NOTE | 2018-07-06 10:30 | PN- Att Addend ---
Attending Addendum Attending Brief Note Patient looking and feeling much better sitting in the chair. She is not short of breath, her color is improved. Has been at the bedside. Her vital signs are stable no fever no major changes on physical. To continue with treatment as outlined by cardiology and pulmonary. Patient was cleared to go to telemetry.. Intake & Output 07/06 1600 07/06 0400 07/05 1600 07/05 0400 07/04 1600 07/04 0400 Intake Total 120 120 498 362 0426 640 Output Total 616 715 7584 1000 2375 500 Balance -430 -730 -1135 -233 -1065 140 Intake, IV 47 20 Intake, Oral 120 120 701 368 3948 640 Number 0 0 3 Bowel Movements Output, Urine 675 588 0342 1000 2375 500 Patient 164 lb 160 lb Weight Weight Bed scale Measurement Method Current Medications Sig/Heena Start time Last Medication Dose Route Stop Time Status Admin Acetaminophen 650 MG Q6PRN PRN 06/30 1630 AC PO Albuterol Sulfate 3 ML BID 07/01 0900 AC 07/06 INH 1016 Albuterol Sulfate 2 PUF Q4-6 PRN PRN 06/30 1615 AC INH Aspirin Buffered 81 MG DAILY 06/30 1607 AC 07/06 PO 0857 Atorvastatin Calcium 20 MG QPM 06/30 2100 AC 07/05 PO 2024 Benzonatate 100 MG TID 07/01 0430 AC 07/06 PO 0856 Bisacodyl 5 MG DAILY 07/04 1921 AC 07/06 PO 0858 Budesonide/ 2 PUF BID 06/30 2100 AC 07/06 Formoterol Fumarate INH 0854 Diltiazem HCl 120 MG DAILY 06/30 1608 AC 07/06 PO 0858 Docusate Sodium 100 MG DAILY NEEDED PRN 07/04 2215 AC 07/04 PO 2328 Fluticasone 2 SPRAY AT BEDTIME 06/30 2100 AC 07/05 Propionate MARCO 2027 Furosemide 60 MG BID 07/02 2100 AC 07/06 IV 0854 Guaifenesin 1,200 MG Q12 06/30 2100 AC 07/06 PO 0857 Losartan Potassium 50 MG BID 06/30 2100 AC 07/06 PO 0858 Magnesium Oxide 400 MG DAILY 06/30 1610 AC 07/06 PO 0857 Melatonin 0 .STK-MED ONE 07/06 101 DC PO Melatonin 5 MG ONCE ONE 07/06 0100 DC 07/06 PO 07/06 101 0102 Metoprolol Succinate 25 MG DAILY 06/30 161 07/06 PO 0855 Omeprazole 20 MG DAILY AC 06/30 1608 07/06 PO 0639 Polyethylene Glycol 17 GM DAILY 07/04 192 07/06 PO 0854 Prednisone 40 MG DAILY 07/06 0900 07/06 PO 0856 Prednisone 20 MG ONCE ONE 07/05 2000 NH 07/05 PO 07/05 Rivaroxaban 15 MG DAILY 06/30 161 07/06 PO 0855 Laboratory Tests 07/06/18 0740: Anion Gap 7, Estimated GFR > 60, Glucose 126 H, Calcium 8.6, Phosphorus 4.6 H, Magnesium 2.5 H, Total Bilirubin 1.4 H, AST 24, ALT 36, Albumin 3.2 L 07/05/18 0420: Anion Gap 7, Estimated GFR > 60, Glucose 160 H, Calcium 8.6, Phosphorus 4.7 H, Magnesium 2.4 H, Total Bilirubin 1.2, AST 24, ALT 34, Albumin 3.3 L, PT 15.9 H, INR 1.45 H, APTT 23 L, CBC w Diff NO MAN DIFF REQ, RBC 3.60 L, MCV 73.9 L , MCH 24.4 L, MCHC 33.0, RDW 19.1 H, MPV 8.4, Gran % 90.2 H, Lymphocytes % 7.0 L, Monocytes % 2.7, Eosinophils % 0, Basophils % 0.1, Absolute Granulocytes 9.8 H, Absolute Lymphocytes 0.8 L, Absolute Monocytes 0.3, Absolute Eosinophils 0, Absolute Basophils 0 07/04/18 0445: Anion Gap 8, Estimated GFR > 60, Glucose 158 H, Calcium 8.9, Phosphorus 4.8 H, Magnesium 2.3, Total Bilirubin 1.3, AST 33, ALT 34, Albumin 3.6, CBC w Diff MAN DIFF ORDERED, RBC 3.69 L, MCV 74.4 L, MCH 24.6 L, MCHC 33.0, RDW 19.2 H, MPV 9.0, Gran % 92.5 H, Lymphocytes % 5.0 L, Monocytes % 2.3, Eosinophils % 0, Basophils % 0.2, Absolute Granulocytes 14.8 H, Segmented Neutrophils 92 H, Band Neutrophils 1, Absolute Lymphocytes 0.8 L, Lymphocytes 3 L, Monocytes 4, Absolute Monocytes 0.4, Absolute Eosinophils 0, Absolute Basophils 0, Platelet Estimate ADEQUATE, Polychromasia 1+, Hypochromic-Microcytic 1+ Vital Signs Date Time Temp Pulse Resp B/P B/P Pulse O2 O2 Flow FiO2 Mean Ox Delivery Rate 07/06 1019 98 Nasal 2.0L Cannula 07/06 0858 88 138/66 07/06 0855 88 138/66 07/06 0000 97 Nasal 2.0L Cannula 07/05 2300 96.8 87 21 140/64 98 Nasal 2.0L Cannula 07/05 2025 97.0 95 28 164/70 07/05 1938 93 Nasal 3.0L Cannula 07/05 1600 95 Nasal 3.0L Cannula 07/05 1600 97.5 118 22 112/64 95 Nasal 3.0L Cannula 07/05 1056 95 Nasal 3.0L Cannula
--- NOTE | 2018-07-06 13:28 | Cons- Cardiology ---
General Information and HPI Consulting Request Date of Consult: 07/06/18 Requested By: John HALL,MD Carlos Saravia MD Reason for Consult: Atrial fibrillation severe mitral stenosis severe congestive heart failure Source of Information: patient, old records Exam Limitations: no limitations History of Present Illness: I was asked to see this patient in regards to atrial fibrillation, severe congestive heart failure in the setting of moderate to severe mitral stenosis, moderate AI, and diastolic dysfunction. To review her history this patient is a very intact and pleasant 87 y.o. who has a history of severe COPD, s/p bilateral pneumonectomies for SSCA and carcinoid, s/p RT with radiation pneumonitis, etc. She has known MS, AI, diastolic dysfunction, CHF. She also has GERD and thyroid nodules. She is now admitted on 06-30-18 with increasing shortness of breath. She was found to be in CHF. Echocardiogram 07-01-18 shows moderate to severe MS, PAP 92, LA 4.3, EF 70%. Diuresed with marked improvement with CXR improved. Initial BNP 2410. Allergies/Medications Allergies: Coded Allergies: adhesive tape (RASH ON SKIN THAT IT TOUCHES 10/22/17) iodine (DAVIS SKIN WHERE APPLIED 10/22/17) povidone-iodine (DAVIS SKIN WHERE IT IS APPLIED 10/22/17) shellfish derived (HIVES ALL OVER 10/22/17) propoxyphene (GI UPSET 10/22/17) Home Med List: Albuterol Sulfate 2.5 MG/3 ML (0.083 %) VIAL.NEB 1 Vial INH/JULIO BID COPD ( Reported) Albuterol Sulfate (Ventolin Hfa) 90 MCG HFA.AER.AD 2 PUF INH Q4-6 PRN PRN SHORTNESS OF BREATH Aspirin (Ecotrin*) 81 MG TABLET.DR 1 TAB PO DAILY HEART (Reported) Atorvastatin Calcium (Lipitor) 20 MG TABLET 1 TAB PO QPM CHOLESTEROL ( Reported) Budesonide/Formoterol Fumarate (Symbicort 160-4.5 Mcg Inhaler) 160 MCG-4.5 MCG/ ACTUATION HFA.AER.AD 2 PUF INH BID COPD (Reported) Cholecalciferol (Vitamin D3) (Vitamin D3) 1,000 UNIT CAPSULE 1 CAP PO DAILY HEALTH SUPPLEMENT (Reported) Diltiazem HCl (Diltiazem 24HR Cd) 120 MG CAP.ER.24H 1 CAP PO DAILY HEART/BP ( Reported) Esomeprazole Magnesium (Nexium) 20 MG CAPSULE.DR 1 CAP PO DAILY ACID REFLUX ( Reported) Fluticasone Propionate 50 MCG/ACTUATION SPRAY.SUSP 2 SPRAY NASB DAILY ALLERGIES (Reported) Furosemide 40 MG TABLET 1 TAB PO BID DIURETIC (Reported) Guaifenesin (Mucinex) 1,200 MG TAB.ER.12H 1 TAB PO BID ALLERGIES (Reported) Losartan Potassium 100 MG TABLET 0.5 TAB PO BID BP (Reported) Magnesium Oxide 400 MG TABLET 1 TAB PO DAILY SUPPLEMENT (Reported) Metoprolol Succinate 25 MG TAB 1 TAB PO DAILY BP (Reported) [place]-3 Acid Ethyl Esters (Lovaza) 1 GRAM CAPSULE 1 CAP PO BID CHOLESTEROL/ TRIGLYCERIDES (Reported) Potassium Chloride 20 MEQ TAB.ER.PRT 1 TAB PO DAILY SUPPLEMENT (Reported) Rivaroxaban (Xarelto) 15 MG TABLET 1 TAB PO DAILY afib . Current Medications: Current Medications Sig/Heena Start time Last Medication Dose Route Stop Time Status Admin Acetaminophen 650 MG Q6PRN PRN 06/30 1630 AC PO Albuterol Sulfate 3 ML BID 07/01 0900 AC 07/06 INH 1016 Albuterol Sulfate 2 PUF Q4-6 PRN PRN 06/30 1615 AC INH Aspirin Buffered 81 MG DAILY 06/30 160 AC 07/06 PO 0857 Atorvastatin Calcium 20 MG QPM 06/30 2100 AC 07/05 PO 2024 Benzonatate 100 MG TID 07/01 0430 AC 07/06 PO 0856 Bisacodyl 5 MG DAILY 07/04 1921 AC 07/06 PO 0858 Budesonide/ 2 PUF BID 06/30 2100 AC 07/06 Formoterol Fumarate INH 0854 Diltiazem HCl 120 MG DAILY 06/30 1608 AC 07/06 PO 0858 Docusate Sodium 100 MG DAILY NEEDED PRN 07/04 2215 AC 07/04 PO 2328 Fluticasone 2 SPRAY AT BEDTIME 06/30 2100 AC 07/05 Propionate MARCO 2027 Furosemide 60 MG BID 07/02 2100 AC 07/06 IV 0854 Guaifenesin 1,200 MG Q12 06/30 2100 AC 07/06 PO 0857 Losartan Potassium 50 MG BID 06/30 2100 AC 07/06 PO 0858 Magnesium Oxide 400 MG DAILY 06/30 1610 AC 07/06 PO 0857 Melatonin 0 .STK-MED ONE 07/06 0101 DC PO Melatonin 5 MG ONCE ONE 07/06 0100 DC 07/06 PO 07/06 0101 0102 Metoprolol Succinate 25 MG DAILY 06/30 1610 AC 07/06 PO 0855 Omeprazole 20 MG DAILY AC 06/30 1608 AC 07/06 PO 0639 Polyethylene Glycol 17 GM DAILY 07/04 192 AC 07/06 PO 0854 Prednisone 5 MG DAILY 07/17 900 AC PO 07/20 0859 Prednisone 10 MG DAILY 07/14 09 AC PO 07/17 0859 Prednisone 20 MG DAILY 07/11 09 AC PO 07/14 0859 Prednisone 30 MG DAILY 07/08 09 AC PO 07/11 08 Prednisone 40 MG DAILY 07/07 900 CAN PO 07/20 0859 Prednisone 40 MG DAILY 07/07 09 AC PO 07/08 0859 Prednisone 40 MG DAILY 07/06 09 DC 07/06 PO 0856 Prednisone 20 MG ONCE ONE 07/05 2000 DC 07/05 PO 07/05 Rivaroxaban 15 MG DAILY 06/30 161 AC 07/06 PO 0855 Review of Systems Review of Systems: My review of systemsConstitutional: Negative for decreased appetite, weakness, malaise/fatigue, weight gain, weight loss HENT: Negative for congestion, hearing loss, hoarse voice, nosebleeds, sore throat, tinnitus Eyes: Negative for blurred vision, double vision, photophobia, redness, visual disturbances Cardiovascular: Negative for chest pain, POSITIVE FOR shortness of breath, dyspnea on exertion, irregular heartbeat/palpitations, swelling, NEGATIVE FOR near syncope, syncope, POSITIVE FOR orthopnea, paroxysmal nocturnal dyspnea, NEGATIVE FOR claudication, cyanosis Respiratory: Negative for cough, hemoptysis, shortness of breath, snoring, sleep apnea/sleep disordered breathing, sputum production, wheezing Endocrine: Negative for cold intolerance, heat intolerance, missed menstrual periods Hematologic/Lymphatic: Negative for adenopathy, abnormal bleeding, easy bruisability Skin: Negative for flushing, itching, rashes, skin cancer/suspicious lesions Musculoskeletal: Negative for arthritis, back pain, joint swelling, muscle cramps, muscle weakness Gastrointestinal: Negative for abdominal pain, change in bowel habits, constipation, diarrhea, dysphagia, heartburn, hemorrhoids, melena, nausea, vomiting Genitourinary: Negative for urinary incontinence, dysuria, flank pain, frequency , hematuria, nocturia, urgency Neurological: Negative for excessive daytime sleepiness, dizziness, focal weakness, headaches, lightheadedness, numbness, paresthesias, seizures, tremors, vertigo Psychiatric/behavioral: Negative for depression, hallucinations, memory loss, substance abuse, suicidal ideas, thoughts of violence, insomnia, nervousness/ anxiety Allergic/Immunologic: Negative for environmental allergies ALL OTHER SYSTEMS REVIEWED AND ARE NEGATIVE Past History Travel History Traveled to [place] past 21 day No Medical History Neurological: NONE EENT: allergies, cataracts, epistaxis Cardiovascular: AFIB, CHF, hypertension Respiratory: COPD, pneumonia, radiation pneumonitis non-small cell lung cancer s /p lobectomy 2006 2007, s/p radiation 2013, c/b radiation pneumonitis Gastrointestinal: GERD, carcinoid syndrome, s/p resection Renal: NONE Musculoskeletal: osteoarthritis Psychiatric: insomnia Endocrine: NONE Blood Disorders: NONE Cancer(s): lung cancer 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 spouse Services at Home: None Primary Language: Ukrainian Smoking Status: Never Smoked ETOH Use: denies use Illicit Drug Use: denies illicit drug use Living Will? yes Functional Ability ADLs Independent: dressing, eating, toileting, bathing. Ambulation: independent IADLs Independent: shopping, housework, finances, food prep, telephone, transportation , medication admin. Exam & Diagnostic Data Vital Signs and I&O Vital Signs Date Time Temp Pulse Resp B/P B/P Pulse O2 O2 Flow FiO2 Mean Ox Delivery Rate 07/06 1019 98 Nasal 2.0L Cannula 07/06 0858 88 138/66 07/06 0855 88 138/66 07/06 0800 98 Nasal 2.0L Cannula 07/06 0800 97.8 92 22 148/82 99 Nasal 2.0L Cannula 07/06 0000 97 Nasal 2.0L Cannula 07/05 2300 96.8 87 21 140/64 98 Nasal 2.0L Cannula 07/05 2025 97.0 95 28 164/70 07/05 1938 93 Nasal 3.0L Cannula 07/05 1600 95 Nasal 3.0L Cannula 07/05 1600 97.5 118 22 112/64 95 Nasal 3.0L Cannula Intake & Output 07/06 0807/06 0000 07/05 1600 07/05 0807/05 0000 Intake Total 120 120 520 100 767 Output Total 151 626 8081 635 1000 Balance -430 -730 -600 -535 -233 Intake, IV 47 Intake, Oral 120 120 520 100 720 Number 0 0 3 Bowel Movements Output, Urine 505 094 1854 635 1000 Patient 164 lb Weight Weight Bed scale Measurement Method Physical Exam: My physical examGeneral/Constitutional: Oriented to person, place, and time. In no distress. Well-developed, well-nourished. Vital signs: see above. Head: Normocephalic/atraumatic Eyes: No xanthelasma or scleral icterus. Conjunctivae normal. Mouth: Moist mucous membranes without pallor or cyanosis Neck: Supple. No jugular venous distention, carotid bruits, thyromegaly Thorax/lungs/pulmonary: No chest deformity. Effort normal without respiratory distress. Lungs clear without wheezes or rales. Heart/Cardiovascular: IRREG IRREG Abdomen/GI: No distention, tenderness or masses Extremities: No cyanosis, clubbing, or edema Neuro: Alert and oriented to person, place, time. Grossly non-focal. Skin: Warm and dry. No diaphoresis. No major rashes. No erythema. No pallor or cyanosis. Psychiatric: Normal mood and affect, behavior appears normal. Assessment/Plan Assessment/Plan My assessment is that she is critically ill with marked pulmonary hypertension, moderate to severe , and of interest however is her LA is not that enlarged and her AF is of fairly recent onset. Overall, recommend: 1. Contemplate amiodarone and cardioversion, but if she develops lung toxicity less than 10% will likely be fatal 2. I think she should be considered for a mitral valvuloplasty; she should be evaluated in a center that does this; her valve may be too heavily calcified and there would be significant risks 3. Although pulm. HTN likely multifactorial, ? would direct pulmonary vasodilators be of some use? 4. Continuous home O2 5. If she is not a candidate for valvuloplasty, would consider home hospice for comfort Discussed with patient and daughter. Copies To: Evens HALL,Deshawn Malagon; Cira HALL,Darian Fletcher; Emeterio Benitez MD,Carlos Herr; Rachael HALL PHD,Oliver Dalton Consult Acknowledgment - Thank you for your consult request.
[2018-07-06 16:00] VITALS: BP 120/58
--- NOTE | 2018-07-06 20:14 | PN- Cardiology ---
Subjective Subjective: * Breathing is much improved. * atrial fibrillation with good rate control Objective Vital Signs and I&Os Vital Signs Date Time Temp Pulse Resp B/P B/P Pulse O2 O2 Flow FiO2 Mean Ox Delivery Rate 07/06 1600 94 Nasal 2.0L Cannula 07/06 1600 97.8 85 20 120/58 94 Nasal 2.0L Cannula 07/06 1019 98 Nasal 2.0L Cannula 07/06 0858 88 138/66 07/06 0855 88 138/66 07/06 0800 98 Nasal 2.0L Cannula 07/06 0800 97.8 92 22 148/82 99 Nasal 2.0L Cannula 07/06 0000 97 Nasal 2.0L Cannula 07/05 2300 96.8 87 21 140/64 98 Nasal 2.0L Cannula 07/05 2025 97.0 95 28 164/70 Intake & Output 07/06 1600 07/06 0800 07/06 0000 07/05 1600 07/05 0800 07/05 0000 Intake Total 480 120 120 520 100 767 Output Total 1100 405 111 9366 635 1000 Balance -620 -430 -730 -600 -535 -233 Intake, IV 47 Intake, Oral 480 120 120 520 100 720 Number 0 0 3 Bowel Movements Output, Urine 1100 801 627 4403 635 1000 Patient 164 lb Weight Weight Bed scale Measurement Method Physical Exam: eneral: WD/WN female in NAD; alert and oriented x 3 HEENT: NC/AT, PERRL, EOMI Neck: no JVD, no carotid bruit Heart: irregular with 3/6 systolic murmur at the apex, 3/6 systolic murmur at the LLSB and 3/6 systolic murmur at the RUSB Lungs: decreased air movement, no crackles Extremities: no edema Assessment/Plan Assessment/Plan * Patient is improved. It should be noted that this patient has mitral stenosis and will be very intolerant of physiologic stress. As such, she had superimposed CHF has been treated to good effect with diuresis and afterload reduction. She has a very fragile hemodynamic status however which I do not think will improve without valve repair. This patient was found to have very high pulmonary pressures which may be related to her mitral stenosis, in part, but also may be due to her lung disease. She is unlikely to come off a vent if surgery is pursued and is therefore not a candidate. Her echo mitral score is also high but consideration will be given to mitral balloon valvuloplasty if the patient is interested in this procedure. At present she is not willing to agree to this procedure. * Change Lasix to 60mg PO BID with careful monitoring of her BUN, creatinine and potassium. Continue afterload reduction with Losartan. * Continue Xarelto for stroke prophylaxis. * Begin Amiodarone 400mg PO BID. If she does not chemically convert then we will consider DC cardioversion with Amiodarone to maintain a sinus rhythm. Continue telemetry? Yes
[2018-07-07] VITALS: BP 132/74
--- NOTE | 2018-07-07 07:10 | PN- Resident CRCU ---
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 Atrial fibrillation, on Xarelto, metoprolol and diltiazem. Multifocal infiltrates and bilateral pleural effusions. Leukocytosis likely secondary to steroids (improving) 24 Hour Events: No overnight events. Patient remained afebrile overnight. Seen and examined this morning. She is using 2 L oxygen and maintaining saturation 97%. Patient is feeling much improved. She walked around yesterday and feeling good. We will try to wean off her oxygen keeping her saturation above 92%. Patient will get physical therapy again today. Patient is complaining of intermittent dry cough but overall she is feeling much improved. Objective Vital Signs & I&O Last 8 Hrs of Vitals and I&O: Intake & Output 07/07 1600 07/07 0800 07/07 0000 Intake Total 480 600 Output Total 600 800 Balance -120 -200 Intake, Oral 480 600 Output, Urine 600 800 Patient 151 lb Weight Weight Bed scale Measurement Method Laboratory Tests 07/07 0605 Chemistry Sodium (137 - 145 mmol/L) 133 L Potassium (3.5 - 5.1 mmol/L) 3.4 L Chloride (98 - 107 mmol/L) 98 Carbon Dioxide (22 - 30 mmol/L) 29 Anion Gap (5 - 16) 6 BUN (7 - 17 mg/dL) 36 H Creatinine (0.5 - 1.0 mg/dL) 0.6 Estimated GFR (>60 ml/min) > 60 Glucose (65 - 99 mg/dL) 96 Calcium (8.4 - 10.2 mg/dL) 8.3 L Phosphorus (2.5 - 4.5 mg/dL) 3.8 Magnesium (1.6 - 2.3 mg/dL) 2.4 H Total Bilirubin (0.2 - 1.3 mg/dL) 1.5 H AST (14 - 36 U/L) 23 ALT (9 - 52 U/L) 34 Albumin (3.5 - 5.0 g/dL) 2.9 L Intake & Output 07/07 0800 Intake Total 480 Output Total 600 Balance -120 Intake, Oral 480 Output, Urine 600 Exam General Appearance: well developed/nourished, no apparent distress, alert, awake Head: atraumatic Neck: normal inspection, supple Respiratory: normal breath sounds, chest non-tender Cardiovascular: irregularly irregular Gastrointestinal: normal bowel sounds, soft Extremities: no edema Skin Temp/Moisture Exam: Warm/Dry Sepsis Skin Exam (color): Normal for Ethnicity Current Medications: Current Medications Sig/Heena Start time Last Medication Dose Route Stop Time Status Admin Acetaminophen 650 MG Q6PRN PRN 06/30 1630 AC PO Albuterol Sulfate 3 ML BID 07/01 09 AC 07/07 INH 0819 Albuterol Sulfate 2 PUF Q4-6 PRN PRN 06/30 161 AC INH Amiodarone HCl 400 MG BID 07/06 2145 AC 07/07 PO 0901 Aspirin Buffered 81 MG DAILY 06/30 160 AC 07/07 PO 0900 Atorvastatin Calcium 20 MG QPM 06/30 2100 AC 07/06 PO 2112 Benzonatate 100 MG TID 07/01 0430 AC 07/07 PO 0902 Bisacodyl 5 MG DAILY 07/04 192 AC 07/07 PO 0859 Budesonide/ 2 PUF BID 06/30 2100 AC 07/07 Formoterol Fumarate INH 0903 Diltiazem HCl 120 MG DAILY 06/30 160 AC 07/07 PO 0900 Docusate Sodium 100 MG DAILY NEEDED PRN 07/04 2215 AC 07/04 PO 2328 Fluticasone 2 SPRAY AT BEDTIME 06/30 2100 AC 07/06 Propionate MARCO 2112 Furosemide 60 MG 7:30 AM, & 4:30 PM 07/07 0730 AC 07/07 PO 0633 Furosemide 60 MG BID 07/02 2100 DC 07/06 IV 1922 Guaifenesin 1,200 MG Q12 06/30 2100 AC 07/07 PO 0902 Losartan Potassium 50 MG BID 06/30 2100 AC 07/07 PO 0900 Magnesium Oxide 400 MG DAILY 06/30 161 AC 07/07 PO 0900 Metoprolol Succinate 25 MG DAILY 06/30 1610 AC 07/07 PO 0903 Omeprazole 20 MG DAILY AC 06/30 1608 AC 07/07 PO 0633 Polyethylene Glycol 17 GM DAILY 07/04 192 AC 07/07 PO 0902 Potassium Chloride 20 MEQ ONCE ONE 07/07 1200 DC 07/07 PO 07/07 1201 1231 Potassium Chloride 40 MEQ 0715 07/07 0715 DC 07/07 PO 07/07 0716 0859 Potassium Chloride 40 MEQ ONCE ONE 07/07 0715 CAN PO 07/07 0716 Prednisone 5 MG DAILY 07/17 09 AC PO 07/20 0859 Prednisone 10 MG DAILY 07/14 0900 AC PO 07/17 0859 Prednisone 20 MG DAILY 07/11 09 AC PO 07/14 0859 Prednisone 30 MG DAILY 07/08 09 AC PO 07/11 0859 Prednisone 40 MG DAILY 07/07 09 AC 07/07 PO 07/08 0859 0902 Rivaroxaban 15 MG DAILY 06/30 1610 AC 07/07 PO 0903 Impression/Plan Impression/Problem List Impression: 87 year old female with a PMH of COPD, 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 Patient was transferred overnight to ICU in the setting of worsening breathing possibly due to pulmonary edema or congestive heart failure with acute hypoxic respiratory failure. Chest x-ray showed bilateral airspace opacities. Patient was given IV Lasix overnight. She remained on BiPAP and high flow oxygen 60%. Patient was pancultured and started on empiric antibiotics. Acute hypoxic respiratory failure:(improving) -Due to acute on chronic heart failure secondary to mixed valvular disease( moderate to severe mitral stenosis, tricuspid regurgitation and aortic moderate regurgitation), could be due to COPD exacerbation. Patient has bilateral opacities and infiltrates in the lung although she remained afebrile. -On 2 L of oxygen with nasal cannula and maintaining her saturation above 92% -Continue prednisone 40 mg for 3 days. And then taper. -Continue Symbicort, Flonase, teaslon, Mucinex -TRC nebulization as needed -We will move her out of the bed and check ambulatory and resting sats. Acute on chronic CHF: -Patient's last echocardiogram showed ejection fraction 6570 percent with mitral valve stenosis, aortic insufficiency, tricuspid regurgitation (mixed valvular disease) and severe pulmonary hypertension. -Not good candidate for valvular surgery as recommended by CT surgery and patient is aware of this. -Patient is being managed with decrease preload and afterload reduction. -Continue po Lasix 60 mg twice a day -Continue losartan for afterload reduction -Daily weight -Daily input and output monitoring -Her k was 3.4 today that was repleted. History of atrial fibrillation: -Continue Xarelto for anticoagulation -Continue diltiazem and metoprolol for rate control -Amiodarone 400mg bid started yesterday for chemical cardioversion. If it remained unsuccessful then we will do DC cardioversion. Leukocytosis:(Improving) -Patient has WBC 10.9 yesterday. Leukocytosis for bradycardia was due to steroid use. -We will keep monitoring her wbc and for any signs of infection. -Keep off antibiotics. History of GERD: -Continue omeprazole DVT prophylaxis: Mechanical and patient is already on Xarelto CODE STATUS: Full code Problem List: 1. Acute respiratory failure with hypoxia 2. Leukocytosis 3. CHF (congestive heart failure) Pain Ratin Pain Location: none Pain Plan: pain pathway Tomorrow's Labs & Rationales: cbc/ciu bundle Plan DVT/Prophylaxis: mechanical, pharmacological
[2018-07-07 08:00] VITALS: BP 150/74
--- NOTE | 2018-07-07 08:09 | PN- Pulmonary ---
Subjective HPI/Critical Care Issues: The patient is awake and alert. She reports feeling significantly improved. She is much less short of breath with exertion. Her oxygen saturation is 97% on 3 L nasal cannula. She is heme dynamically stable. She is ambulating more and sitting out of bed in the chair. Her lower extremity edema has slightly increased now that the patient is sitting out of bed and ambulating. There were no overnight events reported. Objective Current Medications: Current Medications Sig/Heena Start time Last Medication Dose Route Stop Time Status Admin Acetaminophen 650 MG Q6PRN PRN 06/30 1630 AC PO Albuterol Sulfate 3 ML BID 07/01 0900 AC 07/06 INH 2026 Albuterol Sulfate 2 PUF Q4-6 PRN PRN 06/30 1615 AC INH Amiodarone HCl 400 MG BID 07/06 2145 AC 07/07 PO 0002 Aspirin Buffered 81 MG DAILY 06/30 1607 AC 07/06 PO 0857 Atorvastatin Calcium 20 MG QPM 06/30 2100 AC 07/06 PO 2112 Benzonatate 100 MG TID 07/01 0430 AC 07/06 PO 2112 Bisacodyl 5 MG DAILY 07/04 192 AC 07/06 PO 0858 Budesonide/ 2 PUF BID 06/30 2100 AC 07/06 Formoterol Fumarate INH 2112 Diltiazem HCl 120 MG DAILY 06/30 1608 AC 07/06 PO 0858 Docusate Sodium 100 MG DAILY NEEDED PRN 07/04 2215 AC 07/04 PO 2328 Fluticasone 2 SPRAY AT BEDTIME 06/30 2100 AC 07/06 Propionate MARCO 2112 Furosemide 60 MG 7:30 AM, & 4:30 PM 07/07 0730 AC 07/07 PO 0633 Furosemide 60 MG BID 07/02 2100 DC 07/06 IV 1922 Guaifenesin 1,200 MG Q12 06/30 2100 AC 07/06 PO 2112 Losartan Potassium 50 MG BID 06/30 2100 AC 07/06 PO 2112 Magnesium Oxide 400 MG DAILY 06/30 161 AC 07/06 PO 0857 Metoprolol Succinate 25 MG DAILY 06/30 1610 AC 07/06 PO 0855 Omeprazole 20 MG DAILY AC 06/30 1608 AC 07/07 PO 0633 Polyethylene Glycol 17 GM DAILY 07/04 192 AC 07/06 PO 0854 Potassium Chloride 40 MEQ 0707/07 DC PO 07/07 0716 Potassium Chloride 40 MEQ ONCE ONE 07/07 0715 CAN PO 07/07 0716 Prednisone 5 MG DAILY 07/17 900 AC PO 07/20 0859 Prednisone 10 MG DAILY 07/14 900 AC PO 07/17 859 Prednisone 20 MG DAILY 07/11 09 AC PO 07/14 08 Prednisone 30 MG DAILY 07/08 900 AC PO 07/11 08 Prednisone 40 MG DAILY 07/07 900 CAN PO 07/20 0859 Prednisone 40 MG DAILY 07/07 900 AC PO 07/08 0859 Prednisone 40 MG DAILY 07/06 09 DC 07/06 PO 0856 Rivaroxaban 15 MG DAILY 06/30 1610 AC 07/06 PO 0855 Vital Signs & I&O Last 24 Hrs of Vitals and I&O: Vital Signs Date Time Temp Pulse Resp B/P B/P Pulse O2 O2 Flow FiO2 Mean Ox Delivery Rate 07/07 0002 84 132/74 07/07 0000 97 Nasal 3.0L Cannula 07/07 0000 97.8 88 18 132/74 97 Nasal 3.0L Cannula 07/06 2112 84 128/74 07/06 2027 90 Nasal 2.0L Cannula 07/06 1600 94 Nasal 2.0L Cannula 07/06 1600 97.8 85 20 120/58 94 Nasal 2.0L Cannula 07/06 1019 98 Nasal 2.0L Cannula 07/06 0858 88 138/66 07/06 0855 88 138/66 Intake & Output 07/07 1600 07/07 0800 07/07 0000 Intake Total 480 600 Output Total 600 800 Balance -120 -200 Intake, Oral 480 600 Output, Urine 600 800 Patient 151 lb Weight Weight Bed scale Measurement Method Physical Exam General Appearance: well developed/nourished, no apparent distress, alert, awake , comfortable Head: atraumatic Eyes: Bilateral: PERRL. Neck: supple Respiratory: Minimal wheezing, decreased breath sounds at lung bases, diffuse crackles Cardiovascular: systolic murmur, irregularly irregular Gastrointestinal: normal bowel sounds, soft, non-tender Extremities: bilateral lower extremity edema Skin: intact, normal color, warm/dry Results Last 24 Hrs of Lab Results: Laboratory Tests 07/07/18 0605: Anion Gap 6, Estimated GFR > 60, Glucose 96, Calcium 8.3 L, Phosphorus 3.8, Magnesium 2.4 H, Total Bilirubin 1.5 H, AST 23, ALT 34, Albumin 2.9 L Impression/Plan Impression/Plan Impression/Plan: 1. Decompensated CHF in the setting of valvular heart disease (moderate to severe MS, AI, severe TR), with severe pulmonary hypertension, with acute hypoxemic respiratory failure secondary to pulmonary edema. 2. History of COPD with recurrent bronchospasm. 3. 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 4. Atrial fibrillation, on Xarelto, metoprolol and diltiazem. 5. Multifocal infiltrates and bilateral pleural effusions. 6. Improving leukocytosis. Recommendations: * Replete potassium to 4.0. * Continue diuresis per cardiology. * Continue nebs/total respiratory care. * Incentive spirometry. * Supplemental oxygen to maintain saturations greater than 92%. * Continuous supplemental oxygen for treatment of the patient's pulmonary hypertension. * Continue with prednisone taper. * Continue inhaler therapy. * DVT prophylaxis at all times. * Continue with ambulation/physical therapy. * EP evaluation reviewed, amiodarone with cardioversion is being contemplated as well as the potential for mitral valvuloplasty. From my perspective, significantly invasive procedures that require mechanical ventilation should be avoided if they are elective/semielective as the patient is at high risk for respiratory complications given her history. Additionally pulmonary hypertension does appear to be progressively worsening and multifactorial. We can consider starting the patient on sildenafil to determine if this helps to improve her overall symptoms. I will discuss this with cardiology. * Continue all supportive care.
--- NOTE | 2018-07-07 08:57 | PN- Cardiology ---
Subjective Subjective: * Patient continues to have shortness of breath with minimal activity such as leaning forward. * atrial flutter with good rate control. More PVC's are noted. * Patient is not interested in any invasive interventions at this time. * Potassium is 3.4 * WBC count elevation has normalized. Patient has become progressively more anemic. Objective Vital Signs and I&Os Vital Signs Date Time Temp Pulse Resp B/P B/P Pulse O2 O2 Flow FiO2 Mean Ox Delivery Rate 07/07 0821 97 Nasal 2.0L Cannula 07/07 0002 84 132/74 07/07 0000 97 Nasal 3.0L Cannula 07/07 0000 97.8 88 18 132/74 97 Nasal 3.0L Cannula 07/06 2112 84 128/74 07/067 90 Nasal 2.0L Cannula 07/06 1600 94 Nasal 2.0L Cannula 07/06 1600 97.8 85 20 120/58 94 Nasal 2.0L Cannula 07/06 1019 98 Nasal 2.0L Cannula 07/06 0858 88 138/66 07/06 0855 88 138/66 Intake & Output 07/07 1600 07/07 0800 07/07 0000 07/06 1600 07/06 0800 07/06 0000 Intake Total 480 600 480 120 120 Output Total 955 536 7695 550 850 Balance -120 -200 -620 -430 -730 Intake, Oral 480 600 480 120 120 Number 0 0 Bowel Movements Output, Urine 659 039 9934 550 850 Patient 151 lb 164 lb Weight Weight Bed scale Bed scale Measurement Method Physical Exam: General: WD/WN female in NAD; alert and oriented x 3 HEENT: NC/AT, PERRL, EOMI Neck: no JVD, no carotid bruit Heart: irregular with 3/6 systolic murmur at the apex, 3/6 systolic murmur at the LLSB and 3/6 systolic murmur at the RUSB Lungs: decreased air movement, no crackles Extremities: no edema Assessment/Plan Assessment/Plan * Patient is improved to some extent with a normalization of her elevated WBC count. She remains of steroids. It should be noted that this patient has mitral stenosis and will be very intolerant of physiologic stress. As such, she had superimposed CHF that has been treated to good effect with diuresis and afterload reduction. She has a very fragile hemodynamic status however which I do not think will improve without valve repair. This patient was found to have very high pulmonary pressures which may be related to her mitral stenosis, in part, but also may be due to her lung disease. She is unlikely to come off a vent if surgery is pursued and is therefore not a candidate. Her echo mitral score is also high but consideration will be given to mitral balloon valvuloplasty if the patient is interested in this procedure. At present she is not willing to agree to this procedure. * Change Lasix to 60mg PO BID with careful monitoring of her BUN, creatinine and potassium. Check a chest X-ray. Continue afterload reduction with Losartan. * Continue Xarelto for stroke prophylaxis. * Begin Amiodarone 400mg PO BID. If she does not chemically convert then we will consider DC cardioversion with Amiodarone to maintain a sinus rhythm. * Replete potassium. Continue telemetry? Yes
--- NOTE | 2018-07-07 11:52 | RADIOLOGY REPORT ---
EXAMINATION: XR PORTABLE CHEST CLINICAL INFORMATION: CHF exacerbation. Follow-up of pulmonary edema. COMPARISON: Several prior chest x-rays, most recent of which is dated 07/06/2018. TECHNIQUE: Portable AP erect view of the chest was obtained. FINDINGS: EKG leads overlie the chest. The cardiomediastinal silhouette is enlarged, unchanged. Calcification and mild ectasia of the aorta is stable. There is central vascular congestion without overt pulmonary edema. Bilateral small pleural effusions are again seen with bibasilar opacities, left greater than right, unchanged, possibly due to atelectasis. Bony structures are unremarkable. IMPRESSION: 1. Resolution of previously seen pulmonary edema. Central vascular congestion remains. 2. No significant change in bilateral pleural effusions and associated bibasilar pulmonary opacities, possibly due to atelectasis.
[2018-07-07] MEDS ORDERED: PREDNISONE5 M1 PO ×2 (12:21→12:24)
--- NOTE | 2018-07-07 13:42 | PN- Att Addend ---
Attending Addendum Attending Brief Note Patient is feeling and looking better. Daughter at the bedside. Vital signs are stable no fever. Patient ambulated a little bit not short of breath. Still on low-flow oxygen. No major changes on physical examination. If okay with pulmonary and cardiology then start disposition plans to discharge the patient. Intake & Output 07/07 1600 07/07 0400 07/06 1600 07/06 0400 07/05 1600 07/05 0400 Intake Total 480 600 600 120 620 767 Output Total 271 629 9535 850 1755 1000 Balance -120 -200 -1050 -730 -1135 -233 Intake, IV 47 Intake, Oral 480 600 600 120 620 720 Number 0 0 3 Bowel Movements Output, Urine 203 818 5924 850 1755 1000 Patient 151 lb 164 lb Weight Weight Bed scale Bed scale Measurement Method Current Medications Sig/Heena Start time Last Medication Dose Route Stop Time Status Admin Acetaminophen 650 MG Q6PRN PRN 06/30 1630 AC PO Albuterol Sulfate 3 ML BID 07/01 09 AC 07/07 INH 0819 Albuterol Sulfate 2 PUF Q4-6 PRN PRN 06/30 1615 AC INH Amiodarone HCl 400 MG BID 07/06 2145 AC 07/07 PO 0901 Aspirin Buffered 81 MG DAILY 06/30 160 AC 07/07 PO 0900 Atorvastatin Calcium 20 MG QPM 06/30 2100 AC 07/06 PO 211 Benzonatate 100 MG TID 07/01 0430 AC 07/07 PO 0902 Bisacodyl 5 MG DAILY 07/04 192 AC 07/07 PO 0859 Budesonide/ 2 PUF BID 06/30 2100 AC 07/07 Formoterol Fumarate INH 0903 Diltiazem HCl 120 MG DAILY 06/30 160 AC 07/07 PO 0900 Docusate Sodium 100 MG DAILY NEEDED PRN 07/04 2215 AC 07/04 PO 2328 Fluticasone 2 SPRAY AT BEDTIME 06/30 2100 AC 07/06 Propionate MARCO 2112 Furosemide 60 MG 7:30 AM, & 4:30 PM 07/07 730 AC 07/07 PO 0633 Furosemide 60 MG BID 07/02 2100 DC 07/06 IV 1922 Guaifenesin 1,200 MG Q12 06/30 2100 AC 07/07 PO 0902 Losartan Potassium 50 MG BID 06/30 2100 AC 07/07 PO 0900 Magnesium Oxide 400 MG DAILY 06/30 1610 AC 07/07 PO 0900 Metoprolol Succinate 25 MG DAILY 06/30 1610 AC 07/07 PO 0903 Omeprazole 20 MG DAILY AC 06/30 1608 AC 07/07 PO 0633 Polyethylene Glycol 17 GM DAILY 07/04 1921 AC 07/07 PO 0902 Potassium Chloride 20 MEQ ONCE ONE 07/07 1200 DC 07/07 PO 07/07 1201 1231 Potassium Chloride 40 MEQ 0707/07 07 DC 07/07 PO 07/07 0716 0859 Potassium Chloride 40 MEQ ONCE ONE 07/07 0715 CAN PO 07/07 0716 Prednisone 5 MG DAILY 07/17 0900 AC PO 07/20 0859 Prednisone 10 MG DAILY 07/14 0900 AC PO 07/17 08 Prednisone 20 MG DAILY 07/11 09 AC PO 07/14 08 Prednisone 30 MG DAILY 07/08 0900 AC PO 07/11 0859 Prednisone 40 MG DAILY 07/07 0900 AC 07/07 PO 07/08 0859 0902 Rivaroxaban 15 MG DAILY 06/30 161 AC 07/07 PO 0903 Laboratory Tests 07/07/18 0605: Anion Gap 6, Estimated GFR > 60, Glucose 96, Calcium 8.3 L, Phosphorus 3.8, Magnesium 2.4 H, Total Bilirubin 1.5 H, AST 23, ALT 34, Albumin 2.9 L 07/06/18 0740: Anion Gap 7, Estimated GFR > 60, Glucose 126 H, Calcium 8.6, Phosphorus 4.6 H, Magnesium 2.5 H, Total Bilirubin 1.4 H, AST 24, ALT 36, Albumin 3.2 L 07/05/18 0420: Anion Gap 7, Estimated GFR > 60, Glucose 160 H, Calcium 8.6, Phosphorus 4.7 H, Magnesium 2.4 H, Total Bilirubin 1.2, AST 24, ALT 34, Albumin 3.3 L, PT 15.9 H, INR 1.45 H, APTT 23 L, CBC w Diff NO MAN DIFF REQ, RBC 3.60 L, MCV 73.9 L , MCH 24.4 L, MCHC 33.0, RDW 19.1 H, MPV 8.4, Gran % 90.2 H, Lymphocytes % 7.0 L, Monocytes % 2.7, Eosinophils % 0, Basophils % 0.1, Absolute Granulocytes 9.8 H, Absolute Lymphocytes 0.8 L, Absolute Monocytes 0.3, Absolute Eosinophils 0, Absolute Basophils 0 Vital Signs Date Time Temp Pulse Resp B/P B/P Pulse O2 O2 Flow FiO2 Mean Ox Delivery Rate 07/07 0903 99 142/80 07/07 0901 99 142/80 07/07 0900 99 142/80 07/07 0821 97 Nasal 2.0L Cannula 07/07 0800 96.3 80 18 150/74 93 Nasal 2.0L Cannula 07/07 0800 94 Nasal 2.0L Cannula 07/07 0002 84 132/74 07/07 0000 97 Nasal 3.0L Cannula 07/07 0000 97.8 88 18 132/74 97 Nasal 3.0L Cannula 07/06 2112 84 128/74 07/06 2027 90 Nasal 2.0L Cannula 07/06 1600 94 Nasal 2.0L Cannula 07/06 1600 97.8 85 20 120/58 94 Nasal 2.0L Cannula
[2018-07-07 16:00] VITALS: BP 118/60; BP 148/78
[2018-07-07 22:14] VITALS: BP 130/60
[2018-07-08 07:02] VITALS: BP 130/68
--- NOTE | 2018-07-08 08:18 | PN- Housestaff ---
Subjective Follow-up For: CHF exacerbation Subjective: No events per telemonitor or nursing staff. Patient reports no SOB. She is ambulating by herself. She has no new complaints. Review of Systems Constitutional: Reports: see HPI. Objective Last 24 Hrs of Vital Signs/I&O Vital Signs Date Time Temp Pulse Resp B/P B/P Pulse O2 O2 Flow FiO2 Mean Ox Delivery Rate 07/08 1410 98.5 78 20 106/60 95 Room Air 07/08 0843 99 Nasal 2.0L Cannula 07/08 0814 80 130/68 07/08 0814 80 130/68 07/08 0814 80 130/68 07/08 0800 97 Nasal 2.0L Cannula 07/08 0702 97.5 82 20 130/68 97 Nasal 2.0L Cannula Intake & Output 07/09 0800 07/09 0000 07/08 1600 Intake Total 410 Output Total Balance 410 Intake, IV 10 Intake, Oral 400 Physical Exam General Appearance: Alert, Oriented X3, Cooperative, No Acute Distress Skin Temp/Moisture Exam: Warm/Dry Sepsis Skin Exam (color): Normal for Ethnicity HEENT: Atraumatic, EOMI Neck: Supple Cardiovascular: Regular Rate, Normal S1, Normal S2 Lungs: Clear to Auscultation, Slight Exp Wheeze Abdomen: Normal Bowel Sounds, Soft, No Tenderness Neurological: Normal Gait Assessment/Plan Assessment: Patient is a very pleasent 87 year old female with a PMH of COPD, 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 She de-satted to 80s. Was transferred to ICU. Now she diuresed, and saturations have improved and she is on room air. She is ambulating. - Will be discharged today - Adivsed to continue med regimen - Advised to reduce Amiodarone from 400 BID to 200 daily within one week - Advised to see forest fire control officer, pulmonoligst, and PCP within 1 week Problem List: 1. Acute respiratory failure with hypoxia Pain Ratin Pain Location: NA Pain Goal: Remain pain free Pain Plan: Per pathway Tomorrow's Labs & Rationales: None
--- NOTE | 2018-07-08 09:58 | PN- Att Addend ---
Attending Addendum Attending Brief Note Patient looking and feeling much better still wearing oxygen. She is not short of breath she is ambulating. Her vital signs are stable no fever. No new changes in physical examination. Will try and wean her off the oxygen she has not had oxygen at home until now. If she does not not desaturate will keep her off the oxygen. Will check with cardiology and pulmonary and hopefully she will be able to go home and continue the workup the cardiology workup as an outpatient. To follow with pulmonary cardiology and myself. Intake & Output 07/08 1600 07/08 0400 07/07 1600 07/07 04007/06 1600 07/06 040 Intake Total 484 975 0034 600 600 120 Output Total 4695 283 7418 850 Balance 220 100 -220 -200 -1050 -730 Intake, IV 0 Intake, Oral 579 677 8554 600 600 120 Number 1 0 0 Bowel Movements Output, Urine 5332 473 9810 850 Patient 168 lb 151 lb 164 lb Weight Weight Bed scale Bed scale Bed scale Measurement Method Current Medications Sig/Heena Start time Last Medication Dose Route Stop Time Status Admin Acetaminophen 650 MG Q6PRN PRN 06/30 1630 AC PO Albuterol Sulfate 3 ML BID 07/01 0900 AC 07/08 INH 0843 Albuterol Sulfate 2 PUF Q4-6 PRN PRN 06/30 1615 AC INH Amiodarone HCl 400 MG BID 07/06 2145 AC 07/08 PO 0814 Aspirin Buffered 81 MG DAILY 06/30 1607 AC 07/08 PO 0814 Atorvastatin Calcium 20 MG QPM 06/30 2100 AC 07/07 PO 2009 Benzonatate 100 MG TID 07/01 0430 AC 07/08 PO 0814 Bisacodyl 5 MG DAILY 07/04 192 AC 07/08 PO 0815 Budesonide/ 2 PUF BID 06/30 2100 AC 07/08 Formoterol Fumarate INH 0815 Diltiazem HCl 120 MG DAILY 06/30 1608 AC 07/08 PO 0814 Docusate Sodium 100 MG DAILY NEEDED PRN 07/04 221 AC 07/04 PO 2328 Fluticasone 2 SPRAY AT BEDTIME 06/30 2100 AC 07/07 Propionate MARCO 2010 Furosemide 60 MG 7:30 AM, & 4:30 PM 07/07 0730 AC 07/08 PO 0815 Guaifenesin 1,200 MG Q12 06/30 2100 AC 07/08 PO 0814 Losartan Potassium 50 MG BID 06/30 2100 AC 07/08 PO 0814 Magnesium Oxide 400 MG DAILY 06/30 1610 AC 07/08 PO 0814 Metoprolol Succinate 25 MG DAILY 06/30 1610 AC 07/08 PO 0814 Omeprazole 20 MG DAILY AC 06/30 1608 AC 07/08 PO 0548 Polyethylene Glycol 17 GM DAILY 07/04 1921 AC 07/08 PO 0815 Potassium Chloride 20 MEQ ONCE ONE 07/07 1200 DC 07/07 PO 07/07 1201 1231 Prednisone 5 MG DAILY 07/17 0900 AC PO 07/20 0859 Prednisone 10 MG DAILY 07/14 0900 AC PO 07/17 0859 Prednisone 20 MG DAILY 07/11 0900 AC PO 07/14 0859 Prednisone 30 MG DAILY 07/08 0900 AC 07/08 PO 07/11 0859 0814 Prednisone 40 MG DAILY 07/07 0900 DC 07/07 PO 07/08 0859 0902 Rivaroxaban 15 MG DAILY 06/30 1610 AC 07/07 PO 0903 Laboratory Tests 07/07/18 0605: Anion Gap 6, Estimated GFR > 60, Glucose 96, Calcium 8.3 L, Phosphorus 3.8, Magnesium 2.4 H, Total Bilirubin 1.5 H, AST 23, ALT 34, Albumin 2.9 L 07/06/18 0740: Anion Gap 7, Estimated GFR > 60, Glucose 126 H, Calcium 8.6, Phosphorus 4.6 H, Magnesium 2.5 H, Total Bilirubin 1.4 H, AST 24, ALT 36, Albumin 3.2 L Vital Signs Date Time Temp Pulse Resp B/P B/P Pulse O2 O2 Flow FiO2 Mean Ox Delivery Rate 07/08 0843 99 Nasal 2.0L Cannula 07/08 814 80 130/68 07/08 08 80 130/68 07/08 08 80 130/68 07/08 0800 97 Nasal 2.0L Cannula 07/08 0702 97.5 82 20 130/68 97 Nasal 2.0L Cannula 07/08 0000 Nasal 2.0L Cannula 07/07 2214 89 20 130/60 96 Nasal 2.0L Cannula 07/07 2010 82 126/72 07/07 2009 82 126/72 07/07 195 98 Nasal 2.0L Cannula 07/07 1600 95 Nasal 2.0L Cannula 07/07 1600 97.2 82 14 118/60 96 Nasal 2.0L Cannula
--- NOTE | 2018-07-08 10:20 | Patient Discharge Instructions ---
Discharge Instructions General Discharge Information You were seen/treated for: CHF exacerbation You had these procedures: Chest x-ray, echocardiogram. Watch for these problems: Rapid weight gain of more than 2 pounds, trouble breathing, extreme fatigue, any symptoms of CHF please go to ER immediately. Special Instructions: Follow-up with PCP (Dr. Lopez), panel sewer (Dr. Cano/Dr. Stearns), and technical writer and editor (Dr. Horner) in one week. Amiodarone: 400mg TWICE per day (total 800mg) first week. Then decrease to 200mg ONCE daily. Continue taking all other medications at dose you are discharged with. Diet Continue normal diet: No Recommended Diet: Heart Healthy Activity Full Activity/No Limits: No Activity Self Limited: Yes Acute Coronary Syndrome Inclusion Criteria At DC or during hospital stay patient has or had the following: ACS DIAGNOSIS No Discharge Core Measures Meds if any: Prescribed or Continued at Discharge Meds if any: NOT Prescribed or Continued at Discharge Congestive Heart Failure Inclusion Criteria At DC or during hospital stay patient has or had the following: CHF DIAGNOSIS Yes Discharge Core Measures Meds if any: Prescribed or Continued at Discharge BRENTON/ARB for EF <40% Yes Meds if any: NOT Prescribed or Continued at Discharge Cerebrovascular accident Inclusion Criteria At DC or during hospital stay patient has or had the following: CVA/TIA Diagnosis No Discharge Core Measures Meds if any: Prescribed or Continued at Discharge Meds if any: NOT Prescribed or Continued at Discharge Venous thromboembolism Inclusion Criteria VTE Diagnosis No VTE Type NONE VTE Confirmed by (Test) NONE Discharge Core Measures - Per Current guidelines, there needs to be overlap - treatment for the first 5 days of Warfarin therapy. - If discharged on Warfarin prior to 5 days of - overlap therapy, the patient will need to be - assessed for post discharge needs including - *Post discharge parental anticoagulation - *Warfarin and/or parental anticoagulation education - *Follow up date to check INR post discharge At least 5 days overlap therapy as Inpatient No Meds if any: Prescribed or Continued at Discharge Note: Overlap Therapy is Warfarin and Anticoagulant Meds if any: NOT Prescribed or Continued at Discharge
[2018-07-08 14:10] VITALS: BP 106/60
[2018-07-08] MEDS ORDERED: FUROSEMIDE20 M1 PO (15:04)
[2018-07-08] MEDS ORDERED: PREDNISONE5 M1 PO (15:04)
[2018-07-08] MEDS ORDERED: AMIODARONE HCL200 M1 PO (15:04)
[2018-07-08] MEDS ORDERED: LASIX40 M1 PO ×2 (15:08→15:11)
--- NOTE | 2018-07-08 16:04 | PN- Cardiology ---
Subjective Subjective: * Patient ambulated without complaints. No shortness of breath. * Heart rate is well controlled. * potassium is 3.4 Objective Vital Signs and I&Os Vital Signs Date Time Temp Pulse Resp B/P B/P Pulse O2 O2 Flow FiO2 Mean Ox Delivery Rate 07/08 1410 98.5 78 20 106/60 95 Room Air 07/08 0843 99 Nasal 2.0L Cannula 07/08 0814 80 130/68 07/08 0814 80 130/68 07/08 0814 80 130/68 07/08 0800 97 Nasal 2.0L Cannula 07/08 0702 97.5 82 20 130/68 97 Nasal 2.0L Cannula 07/08 0000 Nasal 2.0L Cannula 07/07 2214 89 20 130/60 96 Nasal 2.0L Cannula 07/07 2010 82 126/72 07/07 2009 82 126/72 07/07 1954 98 Nasal 2.0L Cannula Intake & Output 07/08 1600 07/08 0800 07/08 0000 07/07 1600 07/07 0800 07/07 0000 Intake Total 410 220 100 550 480 600 Output Total 650 600 800 Balance 410 220 100 -100 -120 -200 Intake, IV 10 0 Intake, Oral 400 220 100 550 480 600 Number 1 Bowel Movements Output, Urine 650 600 800 Patient 168 lb 151 lb Weight Weight Bed scale Bed scale Measurement Method Physical Exam: General: WD/WN female in NAD; alert and oriented x 3 HEENT: NC/AT, PERRL, EOMI Neck: no JVD, no carotid bruit Heart: irregular with 3/6 systolic murmur at the apex, 3/6 systolic murmur at the LLSB and 3/6 systolic murmur at the RUSB Lungs: decreased air movement, no crackles Extremities: no edema Assessment/Plan Assessment/Plan * Patient is improved to some extent with a normalization of her elevated WBC count. She remains of steroids. It should be noted that this patient has mitral stenosis and will be very intolerant of physiologic stress. As such, she had superimposed CHF that has been treated to good effect with diuresis and afterload reduction. She has a very fragile hemodynamic status however which I do not think will improve without valve repair. This patient was found to have very high pulmonary pressures which may be related to her mitral stenosis, in part, but also may be due to her lung disease. She is unlikely to come off a vent if surgery is pursued and is therefore not a candidate. Her echo mitral score is also high but consideration will be given to mitral balloon valvuloplasty if the patient is interested in this procedure. At present she is not willing to agree to this procedure. * Change Lasix to 60mg PO BID with careful monitoring of her BUN, creatinine and potassium. Check a chest X-ray. Continue afterload reduction with Losartan. * Continue Xarelto for stroke prophylaxis. * Begin Amiodarone 400mg PO BID. Keep on Amiodarone for another week then change to 200mg daily. * Replete potassium and keep on a supplement while on large doses of Lasix. * Okay for discharge with follow up in the office in one week. Continue telemetry? No
== END 2018-07-08 16:34 | disposition home health service (06) | DRG 291 ==
LOC: ERH 08:35 → CRI 12:36 → ERHI 12:36 → 1NO 12:36 → ENRESERV 13:14 → ENTRNSPT 14:15 → EDTRNSPTSTS 14:33 → EDTRNSPT 14:33 → 1NO 14:38 → CMPTRNSPT 15:06 → CRI 07-01 19:38 → ENTRNSPT 07-07 20:28 → 1NO 07-07 20:49 → EDTRNSPTSTS 07-07 20:51 → EDTRNSPT 07-07 20:51 → CMPTRNSPT 07-07 20:55 → ENPENDDIS 07-08 15:44 → ENTRNSPT 07-08 16:14 → 1NO 07-08 16:34 → CMPTRNSPT 07-08 16:41
PROVIDERS: Emergency Medicine; Internal Medicine; Internal Medicine Adolescent Medicine; Physical Medicine & Rehabilitation Pain Medicine; Student in an Organized Health Care Education/Training Program
DX: I11.0 Hypertensive heart disease with heart failure (principal); J96.01 Acute respiratory failure with hypoxia; J70.0 Acute pulmonary manifestations due to radiation; E87.1 Hypo-osmolality and hyponatremia; I50.33 Acute on chronic diastolic (congestive) heart failure; I48.91 Unspecified atrial fibrillation; Z79.01 Long term (current) use of anticoagulants; I35.0 Nonrheumatic aortic (valve) stenosis; I05.0 Rheumatic mitral stenosis; I27.20 Pulmonary hypertension, unspecified; I87.8 Other specified disorders of veins; E04.2 Nontoxic multinodular goiter; J44.9 Chronic obstructive pulmonary disease, unspecified; J98.01 Acute bronchospasm; Z90.710 Acquired absence of both cervix and uterus; Z85.118 Personal history of other malignant neoplasm of bronchus and lung; E87.6 Hypokalemia; Z90.2 Acquired absence of lung [part of]; Z96.649 Presence of unspecified artificial hip joint
CPT/HCPCS: 1NP; CCU; 36415; 36592; 71045; 82436; 87040; 87070; 87086; 87449; 87450; 93005; 93010; 93306; 96374; 97110-GO; 97116-GO; 97162-GP; J0713; J1940; J2920; J2930; J3370; J3490; J7040; J7512